=== PATIENT | female | born 1945 | race Caucasian/White ===

== ENCOUNTER 2016-05-24 11:26 | Inpatient (IN) | payer OTHER ==
[~2016-05-24] VITALS: Ht 167.6 cm; Wt 151.7 kg
[~2016-05-24 11:26] MED LIST: ALEN70TA2 PO; AMOX1TAB43 PO; ASPI-435 PO; BENZ100C84 PO; CALCTAB5 PO; CHOL100010 PO; CYAN10005 PO; FRS/40 PO; INSU0.01 SQ; INSU1INJ16 SQ; IPRA1AER2 INH; IPRASOL4 INH; LABE1TAB28 PO; LBT/200 PO; LOSA50TA6 PO; MAGN500T4 PO; OMEG10007 PO; OXGN; PARO1TAB29 PO; POTA10CA28 PO; PRLSR20 PO; SIMV40TA2 PO; SYMIN160 INH; SYN200 PO; SYN75 PO
[2016-05-24] MEDS ORDERED: ALBUT/IPRATROP 3MG/0.5MG NEB 3 ML VIAL INH STA (12:20)
--- NOTE | 2016-05-24 12:47 | DIAGNOSTIC IMAGING REPORT ---
CHEST ONE VIEW PORTABLE CLINICAL HISTORY: Shortness of breath COMPARISON STUDY: 03/25/2016 FINDINGS: The heart remains enlarged. There is persistent interstitial thickening, possibly secondary to mild chronic pulmonary vascular congestion. There is aortic tortuosity/ectasia. There is no lobar consolidation. There are no significant pleural effusions. Increased density at the lung bases felt related to technical factors due to overlying breast tissue. The examination is limited from a technical standpoint due to the patient's body habitus.[ IMPRESSION: Technically limited study. Persistent cardiomegaly. Persistent interstitial thickening. Aortic tortuosity/ectasia. No evidence of lobar consolidation Electronically signed by: Simon Walter M.D. 05/24/2016 12:46 PM
[2016-05-24 13:22] LABS: BASO % 0.1 %; BASO ABS # 0.01 K/uL (0-0.2); COMPLETE YES; EOS % 3.2 %; HEMATOCRIT 38.6 % (37-47); IG% 0.4 %; LYMPH % 20.4 %; LYMPH ABS # 1.47 K/uL (1.2-3.4); MEAN CELL VOLUME 84.3 fL (80-100); MEAN CORPUSCULAR HEMOGLOBIN 27.3 pg (25-34); MEAN CORPUSCULAR HGB CONC 32.4 g/dl (32-36); MEAN PLATELET VOLUME 10.6 fL (7.4-10.4); MONO % 8.6 %; NEUT % 67.3 %; PLATELET COUNT 266 K/uL (130-400); RED BLOOD COUNT 4.58 M/uL (4.2-5.4); WHITE BLOOD COUNT 7.22 K/uL (4.8-10.8)
[2016-05-24 13:23] LABS: URINE APPEARANCE CLEAR (CLEAR); URINE BILIRUBIN NEG (NEG); URINE COLOR YELLOW; URINE NITRITE NEG (NEG); URINE SPECIFIC GRAVITY 1.014 (1.000-1.030); UROBILINOGEN NEG (NEG); ZZUR CULT IF INDIC CLEAN CATCH NO
[2016-05-24] MEDS ORDERED: LORAZEPAM INJ 0.5 MG in SYRINGE 0.25 ML IV STA (13:24)
[2016-05-24 13:26] LABS: MANUAL MICROSCOPIC REQUIRED? NO; REVIEW REQ? NO
[2016-05-24] MEDS ORDERED: LORAZEPAM 2 MG/ML 1 ML VIAL ONE (13:28)
[2016-05-24 13:30] LABS: ALT/SGPT 24 U/L (12-78); BLOOD UREA NITROGEN 15 mg/dl (7-18); BUN/CREATININE RATIO 13.5 (10-20); CARBON DIOXIDE 30 mmol/L (21-32); CHLORIDE 107 mmol/L (98-107); GLUCOSE 156 mg/dl (70-99); MAGNESIUM 2.1 mg/dl (1.8-2.4); POTASSIUM 4.3 mmol/L (3.5-5.1); SODIUM 141 mmol/L (136-145)
[2016-05-24] MEDS ORDERED: OPTIRAY 320 IV PRN (13:30)
[2016-05-24] MEDS ORDERED: LABETALOL HCL 100 MG TAB PO ONE (13:30)
[2016-05-24] MEDS ORDERED: LORAZEPAM 2 MG/ML 1 ML VIAL IV ONE (13:30)
[2016-05-24 13:36] LABS: INR 1.1 (0.9-1.1); PARTIAL THROMBOPLASTIN RATIO 1.3; PROTHROMBIN TIME (PATIENT) 11.3 SECONDS (9.0-12.0)
[2016-05-24 13:39] LABS: ALB/GLOB RATIO 0.9 (0.9-2); ALKALINE PHOSPHATASE 84 U/L (45-117); AST/SGOT 14 U/L (15-37); C-REACTIVE PROTEIN 1.27 mg/dl (0-0.29)
[2016-05-24 14:30] LABS: VEN BLD GAS O2 SATURATION 64.9 %; VEN BLOOD GAS BASE EXCESS 1.3 mmol/L
--- NOTE | 2016-05-24 14:39 | DIAGNOSTIC IMAGING REPORT ---
CT ANGIOGRAPHY OF THE CHEST, ABDOMEN, AND PELVIS CLINICAL HISTORY: Difficulty breathing. Chest pain. COMPARISON STUDY: Chest radiograph May 24, [address] August 08, 2010. TECHNIQUE: Before and following the IV administration of 119 mL of Optiray-320, helical axial images of the chest, abdomen and pelvis were obtained. Maximal intensity projections and sagittal and coronal reformats were viewed on an independent 3D workstation. IV contrast was administered without complication. CT DOSE: 7238.91 mGy.cm FINDINGS: No intramural hematoma or aortic dissection is present. The caliber of the ascending aorta is at the upper limits of normal. There is moderate cardiomegaly and extensive mitral annular calcification. There is no pericardial effusion. There are trace bilateral pleural effusions. Note is made of multiple small segmental and subsegmental pulmonary emboli within the lungs. There are no central pulmonary emboli. Mild interstitial thickening suggests pulmonary edema. There are mild groundglass opacities. There is no consolidation. A few lung nodules are unchanged since earlier CT. These are likely benign. There is no consolidation to suggest pneumonia. Bony thorax is unremarkable. The caliber of the abdominal aorta is normal. There is mild to moderate plaque. There is no dissection. A few subcentimeter renal lesions are too small to characterize. The liver is moderately enlarged. There is anasarca. There is no evidence for a bowel obstruction. No pneumatosis, free air or portal venous gas is present. There is no lymphadenopathy. IMPRESSION: 1. Several small segmental and subsegmental bilateral pulmonary emboli. 2. No aortic dissection. 3. Findings suggestive of mild edema and trace bilateral pleural effusions. 4. Anasarca. 5. Hepatomegaly. Electronically signed by: Turner Pollock M.D. 05/24/2016 2:38 PM
[2016-05-24] MEDS ORDERED: SODIUM CHLORIDE 0.9% 250ML 250 ML IV STA (15:02)
[2016-05-24] MEDS ORDERED: SODIUM CHLORIDE 0.9% 1000ML 1,000 ML IV STA (15:02)
[2016-05-24] MEDS ORDERED: LORAZEPAM 2 MG/ML 1 ML VIAL IV PRN ×2 (15:30)
[2016-05-24] MEDS ORDERED: ACETAMINOPHEN IV 100 ML IV PRN (15:30)
[2016-05-24] MEDS ORDERED: MoRPHine SULFATE 2 MG/ML CARP IV PRN (15:30)
[2016-05-24] MEDS ORDERED: ACETAMINOPHEN 325 MG TAB PO PRN (15:30)
[2016-05-24] MEDS ORDERED: ONDANSETRON INJ 2 MG/ML 2 ML VIAL IV PRN (15:30)
[2016-05-24] MEDS ORDERED: HEPARIN SOD 5000 UNIT/0.5 ML CARP ONE (15:52)
[2016-05-24] MEDS ORDERED: HEPARIN 25000 UNIT/500 ML D5W ONE (15:52)
[2016-05-24] MEDS ORDERED: HEPARIN IV BOLUS 5,000 UNIT in SYRINGE 0 ML IV ONE (16:00)
[2016-05-24] MEDS ORDERED: DEXTROSE 50% 50 ML SYR IV PRN ×2 (16:15→18:45)
[2016-05-24] MEDS ORDERED: GLUCOSE 10 TABS/TUBE PO PRN ×2 (16:15→18:45)
[2016-05-24] MEDS ORDERED: GLUCAGON FOR INJ 1 MG VIAL SQ PRN ×2 (16:15→18:45)
[2016-05-24] MEDS ORDERED: GLUCOSE 40% GEL 15 GM TUBE PO PRN ×2 (16:15→18:45)
--- NOTE | 2016-05-24 16:26 | EMERGENCY ROOM VISIT NOTE ---
History First contact with patient: 12:03 Chief Complaint: RESPIRATORY PROBLEMS Stated Complaint: HARD TO BREATHE, CARPENTER FRONT/BACK WHEN OUT OF BRODY Nursing Triage Summary: Pt c/o increased SOB over past week. Denies CP but states she gets a warm feeling in her chest and back. History of COPD. Wears 2L NC at home and CPAP at night. Increased swelling in legs. History of Present Illness The patient is a 70 year old female who presents to the Emergency Department by private vehicle for evaluation of her worsening shortness of breath. The patient reports that she's had increasing shortness of breath on exertion for the past week. She has not had much of a cough. She typically does not use oxygen she is exerting herself in the form of cleaning or other heavy activity, but reports that today she needed to use her oxygen at rest. In addition, she reports that she is had to sleep near completely upright secondary to shortness of breath. She denies any pain in her chest, but does report a burning sensation to the abdomen and chest occasionally. She does report a history of COPD as well as CHF. She reports that this feels different than both of these. Her Lasix was decreased recently and she reports that her legs have not decreased in size is much as they usually do throughout the day. She reports a minimal cough. She is had no significant sputum production. She rates her current discomfort as a 0/10. She has used her nebulizers without relief. She denies any fevers, chills, headaches, dizziness, lightheadedness, hemoptysis, nausea, vomiting, or abdominal pain. Review of Systems A complete 10-point Review of Systems was discussed with the patient, with pertinent positives and negatives listed in the History of Present Illness. All remaining Review of Systems questions can be considered negative unless otherwise specified. Past Medical/Surgical History Medical Problems: (1) Bilateral pulmonary embolism (2) Cellulitis (3) Diabetes (4) Hypertension Family History Cancer Diabetes mellitus FH: heart disease FHx: lung disease Hypertension Kidney disease Kidney stones Social History Smoking Status: Never Smoker Alcohol Use: none Drug Use: none Marital Status: Housing Status: lives with family Occupation Status: retired Current/Historical Medications Scheduled Alendronate Sodium (Fosamax), 70 MG PO WK Aspirin (Aspirin 81), 81 MG PO HS Benzonatate (Tessalon Perles), 100 MG PO UD Budesonide/Formoterol Fumarate (Symbicort 160/4.5 Inhaler), 2 PUFFS INH BID Calcium (Caltrate), 600 MG PO DAILY Cholecalciferol (Vitamin D), 3,000 INTER.UNIT PO DAILY Cyanocobalamin (Vitamin B-12), 1,000 MCG PO DAILY Fish Oil ([place]-3), 2 CAP PO DAILY Furosemide (Lasix), 40 MG PO DAILY Insulin Isophane (Human) (Novolin N Relion), 105 UNITS SQ QPM Insulin Isophane (Human) (Novolin N Relion), 145 UNITS SQ QAM Insulin Regular (Human) (Novolin R Relion), 60 UNITS SQ QAM Insulin Regular (Human) (Novolin R Relion), 80 UNITS SQ QPM Ipratropium-Albuterol (Duoneb), 1 TREATMENT INH Q4H Ipratropium-Albuterol (Combivent Respimat), 1 PUFFS INH QID Labetalol (Normodyne), 800 MG PO QAM Labetalol (Normodyne), 600 MG PO QPM Labetalol Hcl (Normodyne), 600 MG PO HS Levothyroxine Sodium (Synthroid), 75 MG PO QAM Levothyroxine Sodium (Synthroid), 200 MG PO QAM Losartan Potassium (Cozaar), 1 TAB PO DAILY Magnesium Oxide (Mg Supplement (Magnesium), 250 MG PO DAILY Omeprazole (Prilosec), 20 MG PO QAM Oxygen (Oxygen), 3 LITERS NA HS Paroxetine (Paxil), 40 MG PO QPM Potassium Chloride (Micro-K Ext Rel), 20 MEQ PO DAILY Simvastatin (Zocor), 40 MG PO QPM Allergies Coded Allergies: Ibuprofen (Verified Allergy, Intermediate, HIVES, 05/24/16) Lisinopril (Verified Adverse Reaction, Mild, COUGH, 05/24/16) coughing Physical Exam Vital Signs Date Time Temp Pulse Resp B/P Pulse Ox O2 Delivery O2 Flow Rate FiO2 05/24/16 16:03 69 27 169/67 96 Nasal Cannula 3.0 05/24/16 14:06 66 22 182/82 95 Nasal Cannula 2.0 05/24/16 13:11 69 22 206/92 98 Nasal Cannula 2.0 05/24/16 13:10 97 Nasal Cannula 2.0 05/24/16 12:25 96 Room Air 05/24/16 12:14 69 05/24/16 11:53 Nasal Cannula 2.0 05/24/16 11:40 36.6 71 20 228/97 96 Nasal Cannula 2.0 Pain Rating (0-10): 0 Physical Exam VITAL SIGNS - Vital signs and nursing notes were reviewed. GENERAL - 70-year-old female appearing her stated age who is in mild distress and tachypneic. Communicates well with provider and answers questions appropriately. HEAD - NC/AT. EYES - PERRL with EOMI bilaterally. Sclera anicteric. Palpebral conjunctiva pink and moist with no injection noted. EARS - No deformities of external structures noted on gross examination bilaterally. No pain elicited with palpation of the tragus bilaterally. External auditory canals without discharge or otorrhea. Tympanic membranes pearly hernandez without retraction or bulging. NOSE - Midline and without cyanosis. No epistaxis or purulent drainage noted. Septum midline without deviation or septal hematoma noted. MOUTH/OROPHARYNX - Without perioral cyanosis. Buccal mucosa pink and moist and without leukoplakia. Tongue midline with equal elevation of palate bilaterally. No tonsillar hypertrophy, erythema, or exudates noted. NECK - Neck with FROM. Supple to palpation. LUNGS - Chest wall symmetric without accessory muscle use, intercostals retractions, or central cyanosis. Breath sounds distant throughout. Course at the bases bilaterally. CARDIAC - RRR with S1/S2. No murmur, rubs, or gallops appreciated. No reproducible tenderness to palpation appreciated over the anterior chest wall. ABDOMEN - Abdominal contour obese and without pulsations or visible masses. BS normoactive all four quadrants. No tenderness, palpable masses, hepatosplenomegaly, or ascites noted. EXTREMITIES - Moderate bilateral pretibial edema. +3/5 radial and dorsalis pedis pulses palpated throughout. +5/5 strength noted in UE/LE bilaterally. PSYCH - A&Ox3 and cooperates fully with examiner. Pt is very pleasant and interacts well with examiner. Medical Decision & Procedures ER Provider Diagnostic Interpretation: Radiological imaging and reports were reviewed by myself. Radiologist's Interpretation as follows: CHEST ONE VIEW PORTABLE CLINICAL HISTORY: Shortness of breath COMPARISON STUDY: 03/25/2016 FINDINGS: The heart remains enlarged. There is persistent interstitial thickening, possibly secondary to mild chronic pulmonary vascular congestion. There is aortic tortuosity/ectasia. There is no lobar consolidation. There are no significant pleural effusions. Increased density at the lung bases felt related to technical factors due to overlying breast tissue. The examination is limited from a technical standpoint due to the patient's body habitus.[ IMPRESSION: Technically limited study. Persistent cardiomegaly. Persistent interstitial thickening. Aortic tortuosity/ectasia. No evidence of lobar consolidation CT ANGIOGRAPHY OF THE CHEST, ABDOMEN, AND PELVIS CLINICAL HISTORY: Difficulty breathing. Chest pain. COMPARISON STUDY: Chest radiograph May 24, [address] August 08, 2010. TECHNIQUE: Before and following the IV administration of 119 mL of Optiray-320, helical axial images of the chest, abdomen and pelvis were obtained. Maximal intensity projections and sagittal and coronal reformats were viewed on an independent 3D workstation. IV contrast was administered without complication. CT DOSE: 7238.91 mGy.cm FINDINGS: No intramural hematoma or aortic dissection is present. The caliber of the ascending aorta is at the upper limits of normal. There is moderate cardiomegaly and extensive mitral annular calcification. There is no pericardial effusion. There are trace bilateral pleural effusions. Note is made of multiple small segmental and subsegmental pulmonary emboli within the lungs. There are no central pulmonary emboli. Mild interstitial thickening suggests pulmonary edema. There are mild groundglass opacities. There is no consolidation. A few lung nodules are unchanged since earlier CT. These are likely benign. There is no consolidation to suggest pneumonia. Bony thorax is unremarkable. The caliber of the abdominal aorta is normal. There is mild to moderate plaque. There is no dissection. A few subcentimeter renal lesions are too small to characterize. The liver is moderately enlarged. There is anasarca. There is no evidence for a bowel obstruction. No pneumatosis, free air or portal venous gas is present. There is no lymphadenopathy. IMPRESSION: 1. Several small segmental and subsegmental bilateral pulmonary emboli. 2. No aortic dissection. 3. Findings suggestive of mild edema and trace bilateral pleural effusions. 4. Anasarca. 5. Hepatomegaly. Laboratory Results 05/24/16 12:35 Red Blood Count 4.58, Mean Corpuscular Volume 84.3, Mean Corpuscular Hemoglobin 27.3, Mean Corpuscular Hemoglobin Concent 32.4, Mean Platelet Volume 10.6, Neutrophils (%) (Auto) 67.3, Lymphocytes (%) (Auto) 20.4, Monocytes (%) (Auto) 8.6, Eosinophils (%) (Auto) 3.2, Basophils (%) (Auto) 0.1, Neutrophils # (Auto) 4.86, Lymphocytes # (Auto) 1.47, Monocytes # (Auto) 0.62, Eosinophils # (Auto) 0.23, Basophils # (Auto) 0.01 05/24/16 12:35 Test 05/24/16 00:00 05/24/16 12:35 05/24/16 12:42 05/24/16 12:50 Urine Color YELLOW Urine Appearance CLEAR (CLEAR) Urine pH 8.0 (4.5-7.5) Urine Specific Porter 1.014 (1.000-1.030) Urine Protein NEG (NEG) Urine Glucose (UA) TRACE (NEG) Urine Ketones NEG (NEG) Urine Occult Blood NEG (NEG) Urine Nitrite NEG (NEG) Urine Bilirubin NEG (NEG) Urine Urobilinogen NEG (NEG) Urine Leukocyte Esterase NEG (NEG) White Blood Count 7.22 K/uL (4.8-10.8) Red Blood Count 4.58 M/uL (4.2-5.4) Hemoglobin 12.5 g/dL (12.0-16.0) Hematocrit 38.6 % (37-47) Mean Corpuscular Volume 84.3 fL (80-100) Mean Corpuscular Hemoglobin 27.3 pg (25-34) Mean Corpuscular Hemoglobin Concent 32.4 g/dl (32-36) Platelet Count 266 K/uL (130-400) Mean Platelet Volume 10.6 fL (7.4-10.4) Neutrophils (%) (Auto) 67.3 % Lymphocytes (%) (Auto) 20.4 % Monocytes (%) (Auto) 8.6 % Eosinophils (%) (Auto) 3.2 % Basophils (%) (Auto) 0.1 % Neutrophils # (Auto) 4.86 K/uL (1.4-6.5) Lymphocytes # (Auto) 1.47 K/uL (1.2-3.4) Monocytes # (Auto) 0.62 K/uL (0.11-0.59) Eosinophils # (Auto) 0.23 K/uL (0-0.5) Basophils # (Auto) 0.01 K/uL (0-0.2) RDW Standard Deviation 46.7 fL (36.4-46.3) RDW Coefficient of Variation 15.2 % (11.5-14.5) Immature Granulocyte % (Auto) 0.4 % Immature Granulocyte # (Auto) 0.03 K/uL (0.00-0.02) Erythrocyte Sedimentation Rate 30 mm/hr (0-21) Prothrombin Time 11.3 SECONDS (9.0-12.0) Prothromb Time International Ratio 1.1 (0.9-1.1) Activated Partial Thromboplast Time 34.3 SECONDS (21.0-31.0) Partial Thromboplastin Ratio 1.3 Anion Gap 4.0 mmol/L (3-11) Estimated GFR () 59.3 Estimated GFR (Non- 51.2 BUN/Creatinine Ratio 13.5 (10-20) Calcium Level 9.0 mg/dl (8.5-10.1) Magnesium Level 2.1 mg/dl (1.8-2.4) Total Bilirubin 0.6 mg/dl (0.2-1) Aspartate Amino Transf (AST/SGOT) 14 U/L (15-37) Alanine Aminotransferase (ALT/SGPT) 24 U/L (12-78) Alkaline Phosphatase 84 U/L (45-117) Total Creatine Kinase 60 U/L (26-192) Creatine Kinase MB 1.2 ng/ml (0.5-3.6) Creatine Kinase MB Ratio 2.0 (0-3.0) Troponin I < 0.015 ng/ml (0-0.045) C-Reactive Protein 1.27 mg/dl (0-0.29) Pro-B-Type Natriuretic Peptide 468 pg/ml (0-900) Total Protein 7.3 gm/dl (6.4-8.2) Albumin 3.5 gm/dl (3.4-5.0) Globulin 3.8 gm/dl (2.5-4.0) Albumin/Globulin Ratio 0.9 (0.9-2) Procalcitonin < 0.05 ng/mL (0-0.5) Thyroid Stimulating Hormone (TSH) 1.770 uIu/ml (0.300-4.500) Bedside Lactic Acid Venous 1.53 mmol/L (0.90-1.70) Influenza Type A Antigen Neg for Influ A (NEG) Influenza Type B Antigen Neg for Influ B (NEG) Test 05/24/16 14:17 Venous Blood pH 7.36 (7.36-7.41) Venous Blood Partial Pressure CO2 49 mmHg (38.0-50.0) Venous Blood Partial Pressure O2 34 mmHg Venous Blood HCO3 27 mmol/L Venous Blood Oxygen Saturation 64.9 % Venous Blood Base Excess 1.3 mmol/L Medications Administered Medications (Trade) Dose Ordered Sig/Marcelina Route Start Time Stop Time Status Last Admin Dose Admin Albuterol/ Ipratropium (Duoneb) 3 ml NOW STAT INH 05/24/16 12:20 05/24/16 12:23 DC 05/24/16 12:44 3 ML Labetalol HCl (Normodyne Tab) 600 mg NOW ONCE PO 05/24/16 13:30 05/24/16 13:31 DC 05/24/16 14:44 600 MG Lorazepam (Ativan Inj) 0.5 mg NOW ONCE IV 05/24/16 13:30 05/24/16 13:31 DC 05/24/16 13:30 0.5 MG Heparin Sodium/ Dextrose (Heparin 25,000 Unit/500ml D5W) 25,000 unit STK-MED ONCE .ROUTE 05/24/16 15:52 05/24/16 15:53 DC 05/24/16 16:00 25,000 UNIT Heparin Sodium (Porcine) (Heparin Sq 5000 Unit/0.5ml) 5,000 unit STK-MED ONCE .ROUTE 05/24/16 15:52 05/24/16 15:53 DC 05/24/16 15:56 5,000 UNIT Procedure Patient was placed on the hardboard grinder and monitored throughout the entire extent of their stay. In addition, the patient's pulse oximetry was monitored throughout the entire stay. Any abnormalities or aberrancies were addressed appropriately. ECG Indication: chest pain, SOB/dyspnea Rate (beats per minute): 73 Rhythm: normal sinus Findings: LBBB Change: no significant change (from 03/25/2016.) ED Course Patient was seen and evaluated by myself. Previous emergency department visit notes and hospitalizations were reviewed. Labs were drawn, saline lock in place. Patient was initially treated with 1 DuoNeb. EKG is unchanged priors. Initial chest x-ray is concerning for aortic ectasia and widening of the mediastinum. In the setting of the patient's location of pain and shortness of breath, didn't feel that it was judicious for CTA of the chest obtained. Laboratory evaluation was delayed secondary to laboratory issue. Patient was treated with her morning dose of labetalol which she did not take. She was premedicated with 0.5 mg IV Ativan prior to CTA. Creatinine was essentially cleared and found to be 1.1. CTA was immediately obtained. Patient has no acute leukocytosis. She is not anemic. There are no significant electrolyte abnormalities. Cardiac enzymes are negative. Influenza was negative. ABG was unremarkable. Case was reviewed with my attending physician who independently evaluated the patient and agrees with the diagnostic approach treatment plan. CTA results consistent with multiple by basilar pulmonary emboli. At this point , the case was reviewed with the [facility] who agrees to admit the patient for further evaluation and management. Patient admitted in stable condition. Medical Decision Patient was seen and evaluated by myself. On initial assessment, the patient is tachypneic and not well-appearing. She has no fever. She has no leukocytosis. She did not significantly respond to the DuoNeb which may be more concerned for greater chest catastrophe versus worsening heart failure. Her chest x-ray was concerning for aortic enlargement. In the setting of the patient's symptoms, my concern was for dissection. Because of this, the patient was sent emergently for CTA of the chest. She was premedicated with 0.5 mg Ativan to help her lay flat during the CTA. Thankfully, the CTA was unremarkable for dissection, however the patient was found to have multiple by basilar pulmonary emboli. Her blood pressure decreased nicely after her morning dose of medication. The patient will be admitted to the [facility] for continued management and anticoagulation. Patient admitted in stable condition. In the evaluation and treatment of this patient, the following differential diagnoses were considered: IN, ASC, Dysrhythmia, Angina, Mediastinitis, GERD, Esophagitis, PE, Pneumonia, Bronchitis, Costochondritis, Rib Fracture, Zoster. Impression Primary Impression: Bilateral pulmonary embolism Additional Impression: Shortness of breath Critical Care I have personally spent greater than 45 minutes of critical care time in the direct management of this patient. This includes bedside care, interpretation of diagnostic studies, and testing, discussion with consultants, patient, and family members, and other required patient management activities. This 45 minutes is in excess of all separately billable procedures. Departure Information Dispostion Admitted as an inpatient Condition FAIR Referrals RV. Jean Baptiste MD (PCP) Patient Instructions A Signature Page, [facility]
--- NOTE | 2016-05-24 17:40 | DIAGNOSTIC IMAGING REPORT ---
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 Edema. PEs COMPARISON STUDY: 03/25/2016 FINDINGS: There is normal compressibility, flow, and augmentation within the bilateral lower extremity deep venous systems. 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 No acute deep venous thrombosis Electronically signed by: Bharat Kitchen M.D. 05/24/2016 5:38 PM
[2016-05-24 18:23] VITALS: BP_SYST 189; PULSE 67; TEMP 36.6; O2SAT 94; BMI 55.2
[2016-05-24] MEDS ORDERED: LORAZEPAM INJ 0.5 MG in SYRINGE 0.75 ML IV PRN (19:15)
--- NOTE | 2016-05-24 19:23 | History and Physical ---
History & Physical Date & Time of Service: May 24, 2016 at 19:01 Chief Complaint: Bilateral Pulmonary Embolism Primary Care Physician: RV. Jean Baptiste MD History of Present Illness Source: patient, family The patient is a 70-year-old female who presents emergency department apparently vehicle for assessment worsening shortness of breath. She particular was having worsening dyspnea exertion over the past week. She has not had any leg pain or cramping. She's only had an intermittent cough as nonproductive. She sometimes uses oxygen at home when she is physically active , but she needed to use it at rest today as well. She denies chest pain, but she has had epigastric burning. She has a known history of COPD and CHF. She reports her Lasix was decreased recently but she has not noted any increase in lower extremity edema. Past Medical/Surgical History Medical Problems: (1) Diabetes Status: Chronic (2) Hypertension Status: Chronic Family History Cancer Diabetes mellitus FH: heart disease FHx: lung disease Hypertension Kidney disease Kidney stones Social History Smoking Status: Former Smoker Smokeless Tobacco Use: No Alcohol Use: none Drug Use: none Marital Status: Housing status: lives with family Occupational Status: retired Immunizations History of Influenza Vaccine: N/A History of Tetanus Vaccine?: Yes History of Pneumococcal: Yes History of Hepatitis B Vaccine: Unknown Multi-Drug Resistant Organisms History of MDRO: No Allergies Coded Allergies: Ibuprofen (Verified Allergy, Intermediate, HIVES, 05/24/16) Lisinopril (Verified Adverse Reaction, Mild, COUGH, 05/24/16) coughing Home Medications Scheduled Alendronate Sodium (Fosamax), 70 MG PO WK Aspirin (Aspirin 81), 81 MG PO HS Benzonatate (Tessalon Perles), 100 MG PO UD Budesonide/Formoterol Fumarate (Symbicort 160/4.5 Inhaler), 2 PUFFS INH BID Calcium (Caltrate), 600 MG PO DAILY Cholecalciferol (Vitamin D), 3,000 INTER.UNIT PO DAILY Cyanocobalamin (Vitamin B-12), 1,000 MCG PO DAILY Fish Oil (Ellis-3), 2 CAP PO DAILY Furosemide (Lasix), 40 MG PO DAILY Insulin Isophane (Human) (Novolin N Relion), 105 UNITS SQ QPM Insulin Isophane (Human) (Novolin N Relion), 145 UNITS SQ QAM Insulin Regular (Human) (Novolin R Relion), 60 UNITS SQ QAM Insulin Regular (Human) (Novolin R Relion), 80 UNITS SQ QPM Ipratropium-Albuterol (Duoneb), 1 TREATMENT INH Q4H Ipratropium-Albuterol (Combivent Respimat), 1 PUFFS INH QID Labetalol (Normodyne), 800 MG PO QAM Labetalol (Normodyne), 600 MG PO QPM Labetalol Hcl (Normodyne), 600 MG PO HS Levothyroxine Sodium (Synthroid), 75 MG PO QAM Levothyroxine Sodium (Synthroid), 200 MG PO QAM Losartan Potassium (Cozaar), 1 TAB PO DAILY Magnesium Oxide (Mg Supplement (Magnesium), 250 MG PO DAILY Omeprazole (Prilosec), 20 MG PO QAM Oxygen (Oxygen), 3 LITERS NA HS Paroxetine (Paxil), 40 MG PO QPM Potassium Chloride (Micro-K Ext Rel), 20 MEQ PO DAILY Simvastatin (Zocor), 40 MG PO QPM Review of Systems The patient denies palpitations, shortness of breath, cough, change in lower extremity swelling, vision change, hearing change, sore throat, fevers, chills, sweats, weight loss or gain, nausea, vomiting, abdominal pain, pelvic pain, blood in urine or stool, dysuria, urinary frequency or urgency, lightheadedness , dizziness, headache, memory loss, rash, abnormal bruising or bleeding, imbalance, focal weakness, numbness or tingling in arms or legs, generalized arthralgias or myalgias, night sweats, or allergy symptoms. The review of systems is otherwise negative other than for that already noted above, and at least 10 systems have been reviewed. Physical Exam Vital Signs Date Time Temp Pulse Resp B/P Pulse Ox O2 Delivery O2 Flow Rate FiO2 05/24/16 18:23 36.6 67 22 189/ 94 Nasal Cannula 3.0 05/24/16 16:03 69 27 169/67 96 Nasal Cannula 3.0 05/24/16 14:06 66 22 182/82 95 Nasal Cannula 2.0 05/24/16 13:11 69 22 206/92 98 Nasal Cannula 2.0 05/24/16 13:10 97 Nasal Cannula 2.0 05/24/16 12:25 96 Room Air 05/24/16 12:14 69 05/24/16 11:53 Nasal Cannula 2.0 05/24/16 11:40 36.6 71 20 228/97 96 Nasal Cannula 2.0 The patient is awake, well-developed and adequately nourished, alert and oriented 3, normocephalic and atraumatic, sitting upright in bed and in moderate respiratory distress after walking back from the bathroom. HEENT--PERRL, EOMI, mucous membranes moist, and oropharynx normal. Neck--supple, no JVD or bruits, thyroid normal, trachea midline, no adenopathy. Heart--normal S1 and S2, no extra beats, no murmurs, rubs or gallops. Lungs--crackles at the bases mcfp up bilaterally, moderate respiratory distress, mild accessory muscle use. Abdomen--normal bowel sounds and soft, nontender and nondistended, no hernias or masses, no organomegaly, and obese. Extremities--no cyanosis, clubbing. There is bilaterally 2+ pitting Edema. There are good distal pulses b/l. Dermatologic--normal skin turgor, normal color, warm and dry, no abnormal lymph nodes, no rash. Chronic venous stasis changes bilaterally. Neurologic--cranial nerves II through XII grossly intact, motor and sensory examination normal, vestibular function normal. Psychiatric--normal affect. Diagnostics Laboratory Results Results Past 24 Hours Test 05/24/16 00:00 05/24/16 12:35 05/24/16 12:42 05/24/16 12:50 Range/Units Urine Color YELLOW Urine Appearance CLEAR CLEAR Urine pH 8.0 4.5-7.5 Urine Specific [place] 1.014 1.000-1.030 Urine Protein NEG NEG Urine Glucose (UA) TRACE NEG Urine Ketones NEG NEG Urine Occult Blood NEG NEG Urine Nitrite NEG NEG Urine Bilirubin NEG NEG Urine Urobilinogen NEG NEG Urine Leukocyte Esterase NEG NEG White Blood Count 7.22 4.8-10.8 K/uL Red Blood Count 4.58 4.2-5.4 M/uL Hemoglobin 12.5 12.0-16.0 g/dL Hematocrit 38.6 37-47 % Mean Corpuscular Volume 84.3 80-100 fL Mean Corpuscular Hemoglobin 27.3 25-34 pg Mean Corpuscular Hemoglobin Concent 32.4 32-36 g/dl Platelet Count 266 130-400 K/uL Mean Platelet Volume 10.6 7.4-10.4 fL Neutrophils (%) (Auto) 67.3 % Lymphocytes (%) (Auto) 20.4 % Monocytes (%) (Auto) 8.6 % Eosinophils (%) (Auto) 3.2 % Basophils (%) (Auto) 0.1 % Neutrophils # (Auto) 4.86 1.4-6.5 K/uL Lymphocytes # (Auto) 1.47 1.2-3.4 K/uL Monocytes # (Auto) 0.62 0.11-0.59 K/uL Eosinophils # (Auto) 0.23 0-0.5 K/uL Basophils # (Auto) 0.01 0-0.2 K/uL RDW Standard Deviation 46.7 36.4-46.3 fL RDW Coefficient of Variation 15.2 11.5-14.5 % Immature Granulocyte % (Auto) 0.4 % Immature Granulocyte # (Auto) 0.03 0.00-0.02 K/uL Erythrocyte Sedimentation Rate 30 0-21 mm/hr Prothrombin Time 11.3 9.0-12.0 SECONDS Prothromb Time International Ratio 1.1 0.9-1.1 Activated Partial Thromboplast Time 34.3 21.0-31.0 SECONDS Partial Thromboplastin Ratio 1.3 Sodium Level 141 136-145 mmol/L Potassium Level 4.3 3.5-5.1 mmol/L Chloride Level 107 98-107 mmol/L Carbon Dioxide Level 30 21-32 mmol/L Anion Gap 4.0 3-11 mmol/L Blood Urea Nitrogen 15 7-18 mg/dl Creatinine 1.10 0.60-1.20 mg/dl Estimated GFR () 59.3 Estimated GFR (Non- 51.2 BUN/Creatinine Ratio 13.5 10-20 Random Glucose 156 70-99 mg/dl Calcium Level 9.0 8.5-10.1 mg/dl Magnesium Level 2.1 1.8-2.4 mg/dl Total Bilirubin 0.6 0.2-1 mg/dl Aspartate Amino Transf (AST/SGOT) 14 15-37 U/L Alanine Aminotransferase (ALT/SGPT) 24 12-78 U/L Alkaline Phosphatase 84 45-117 U/L Total Creatine Kinase 60 26-192 U/L Creatine Kinase MB 1.2 0.5-3.6 ng/ml Creatine Kinase MB Ratio 2.0 0-3.0 Troponin I < 0.015 0-0.045 ng/ml C-Reactive Protein 1.27 0-0.29 mg/dl Pro-B-Type Natriuretic Peptide 468 0-900 pg/ml Total Protein 7.3 6.4-8.2 gm/dl Albumin 3.5 3.4-5.0 gm/dl Globulin 3.8 2.5-4.0 gm/dl Albumin/Globulin Ratio 0.9 0.9-2 Procalcitonin < 0.05 0-0.5 ng/mL Thyroid Stimulating Hormone (TSH) 1.770 0.300-4.500 uIu/ml Bedside Lactic Acid Venous 1.53 0.90-1.70 mmol/L Influenza Type A Antigen Neg for Influ A NEG Influenza Type B Antigen Neg for Influ B NEG Test 05/24/16 14:17 Range/Units Venous Blood pH 7.36 7.36-7.41 Venous Blood Partial Pressure CO2 49 38.0-50.0 mmHg Venous Blood Partial Pressure O2 34 mmHg Venous Blood HCO3 27 mmol/L Venous Blood Oxygen Saturation 64.9 % Venous Blood Base Excess 1.3 mmol/L Microbiology Results 05/24/16 Blood Culture, Received Pending 05/24/16 Blood Culture, Received Pending Diagnostic Radiology Patient Name: JESSICA PENN Unit Number: [id number] Dictated: 05/24/161244 Transcribed: 05/24/161244 ARG Printed Date/Time: [~ rep prt dt]/[~ rep prt tm] [~ rep ct labl] - [~ rep ct ivnm] [facility] [place] [address] Dictated: 05/24/161244 Transcribed: 05/24/161244 ARG Printed Date/Time: [~ rep prt dt]/[~ rep prt tm] [~ rep ct labl] - [~ rep ct ivnm] CHEST ONE VIEW PORTABLE CLINICAL HISTORY: Shortness of breath COMPARISON STUDY: 03/25/2016 FINDINGS: The heart remains enlarged. There is persistent interstitial thickening, possibly secondary to mild chronic pulmonary vascular congestion. There is aortic tortuosity/ectasia. There is no lobar consolidation. There are no significant pleural effusions. Increased density at the lung bases felt related to technical factors due to overlying breast tissue. The examination is limited from a technical standpoint due to the patient's body habitus.[ IMPRESSION: Technically limited study. Persistent cardiomegaly. Persistent interstitial thickening. Aortic tortuosity/ectasia. No evidence of lobar consolidation Electronically signed by: Simon Walter M.D. 05/24/2016 12:46 PM The status of this report is Signed. Draft = Not yet reviewed or approved by Radiologist. Signed = Reviewed and approved by Radiologist. <AttendingPhy></AttendingPhy> <FamilyPhy>RV. Jean Baptiste MD</ FamilyPhy> <PrimaryPhy>RV. Jean Baptiste MD</PrimaryPhy> <UnitNumber> [id number]</UnitNumber> <VisitNumber>[id number]</VisitNumber> <PatientName> JESSICA PENN Tez</PatientName> <DateOfBirth>1945</DateOfBirth> <Location> C.EDB</Location> <ServiceDate>05/24/16</ServiceDate> <MNE>ESINDI</MNE> < OrderingPhy>Kade Aguilar PA-C</OrderingPhy> <OrderingPhyMNE>f rep ord dr cook</ OrderingPhyMNE> <DictatingPhyMNE>f rep dict dr cook</DictatingPhyMNE> <CCListMNE> f rep ct kindrae</CCListMNE> <AdmittingPhyMNE>f pt admit dr cook</AdmittingPhyMNE> < AttendingPhyMNE>f pt attend dr cook</AttendingPhyMNE> <ConsultingPhyMNE>f pt consult dr cook</ConsultingPhyMNE> <FamilyPhyMNE>f pt fam dr cook</FamilyPhyMNE> <OtherPhyMNE>f pt other dr cook</OtherPhyMNE> < PrimaryPhyMNE>f pt prim care dr cook</PrimaryPhyMNE> <ReferringPhyMNE>f pt referring dr cook</ReferringPhyMNE> Patient Name: JESSICA PENN Unit Number: [id number] Dictated: 05/24/161413 Transcribed: 05/24/161413 JA Printed Date/Time: [~ rep prt dt]/[~ rep prt tm] [~ rep ct labl] - [~ rep ct ivnm] [facility] [place] [address] Dictated: 05/24/161413 Transcribed: 05/24/161413 JA Printed Date/Time: [~ rep prt dt]/[~ rep prt tm] [~ rep ct labl] - [~ rep ct ivnm] [~ rep ct add3]] CT ANGIOGRAPHY OF THE CHEST, ABDOMEN, AND PELVIS CLINICAL HISTORY: Difficulty breathing. Chest pain. COMPARISON STUDY: Chest radiograph May 24, [address] August 08, 2010. TECHNIQUE: Before and following the IV administration of 119 mL of Optiray-320, helical axial images of the chest, abdomen and pelvis were obtained. Maximal intensity projections and sagittal and coronal reformats were viewed on an independent 3D workstation. IV contrast was administered without complication. CT DOSE: 7238.91 mGy.cm FINDINGS: No intramural hematoma or aortic dissection is present. The caliber of the ascending aorta is at the upper limits of normal. There is moderate cardiomegaly and extensive mitral annular calcification. There is no pericardial effusion. There are trace bilateral pleural effusions. Note is made of multiple small segmental and subsegmental pulmonary emboli within the lungs. There are no central pulmonary emboli. Mild interstitial thickening suggests pulmonary edema. There are mild groundglass opacities. There is no consolidation. A few lung nodules are unchanged since earlier CT. These are likely benign. There is no consolidation to suggest pneumonia. Bony thorax is unremarkable. The caliber of the abdominal aorta is normal. There is mild to moderate plaque. There is no dissection. A few subcentimeter renal lesions are too small to characterize. The liver is moderately enlarged. There is anasarca. There is no evidence for a bowel obstruction. No pneumatosis, free air or portal venous gas is present. There is no lymphadenopathy. IMPRESSION: 1. Several small segmental and subsegmental bilateral pulmonary emboli. 2. No aortic dissection. 3. Findings suggestive of mild edema and trace bilateral pleural effusions. 4. Anasarca. 5. Hepatomegaly. Electronically signed by: Turner Pollock M.D. 05/24/2016 2:38 PM The status of this report is Signed. Draft = Not yet reviewed or approved by Radiologist. Signed = Reviewed and approved by Radiologist. <AttendingPhy></AttendingPhy> <FamilyPhy>RV. Jean Baptiste MD</ FamilyPhy> <PrimaryPhy>RV. Jean Baptiste MD</PrimaryPhy> <UnitNumber> [id number]</UnitNumber> <VisitNumber>[id number]</VisitNumber> <PatientName> ISAMARJESSICA</PatientName> <DateOfBirth>1945</DateOfBirth> <Location> C.EDB</Location> <ServiceDate>05/24/16</ServiceDate> <MNE>ESINDI</MNE> < OrderingPhy>Kade Aguilar PA-C</OrderingPhy> <OrderingPhyMNE>f rep ord dr cook</ OrderingPhyMNE> <DictatingPhyMNE>f rep dict dr cook</DictatingPhyMNE> <CCListMNE> f rep ct mne</CCListMNE> <AdmittingPhyMNE>f pt admit dr cook</AdmittingPhyMNE> < AttendingPhyMNE>f pt attend dr cook</AttendingPhyMNE> <ConsultingPhyMNE>f pt consult dr cook</ConsultingPhyMNE> <FamilyPhyMNE>f pt fam dr cook</FamilyPhyMNE> <OtherPhyMNE>f pt other dr cook</OtherPhyMNE> < PrimaryPhyMNE>f pt prim care dr cook</PrimaryPhyMNE> <ReferringPhyMNE>f pt referring dr cook</ReferringPhyMNE> Patient Name: JESSICA PENN Unit Number: [id number] Dictated: 05/24/161736 Transcribed: 05/24/161736 MS Printed Date/Time: [~ rep prt dt]/[~ rep prt tm] [~ rep ct labl] - [~ rep ct ivnm] [facility] Radiology Department [place], [place] [id number] Dictated: 05/24/161736 Transcribed: 05/24/161736 MS Printed Date/Time: [~ rep prt dt]/[~ rep prt tm] [~ rep ct labl] - [~ rep ct ivnm] 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 Edema. PEs COMPARISON STUDY: 03/25/2016 FINDINGS: There is normal compressibility, flow, and augmentation within the bilateral lower extremity deep venous systems. 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 No acute deep venous thrombosis Electronically signed by: Bharat Kitchen M.D. 05/24/2016 5:38 PM The status of this report is Signed. Draft = Not yet reviewed or approved by Radiologist. Signed = Reviewed and approved by Radiologist. <AttendingPhy></AttendingPhy> <FamilyPhy>RV. Jaen Baptiste MD</ FamilyPhy> <PrimaryPhy>RV. Jean Baptiste MD</PrimaryPhy> <UnitNumber> [id number]</UnitNumber> <VisitNumber>[id number]</VisitNumber> <PatientName> ISRAEL PENNMike Reagan</PatientName> <DateOfBirth>1945</DateOfBirth> <Location> C.EDB</Location> <ServiceDate>05/24/16</ServiceDate> <MNE>ESINDI</MNE> < OrderingPhy>Kade Aguilar PA-C</OrderingPhy> <OrderingPhyMNE>f rep ord dr cook</ OrderingPhyMNE> <DictatingPhyMNE>f rep dict dr cook</DictatingPhyMNE> <CCListMNE> f rep ct kindrae</CCListMNE> <AdmittingPhyMNE>f pt admit dr cook</AdmittingPhyMNE> < AttendingPhyMNE>f pt attend dr cook</AttendingPhyMNE> <ConsultingPhyMNE>f pt consult dr cook</ConsultingPhyMNE> <FamilyPhyMNE>f pt fam dr cook</FamilyPhyMNE> <OtherPhyMNE>f pt other dr cook</OtherPhyMNE> < PrimaryPhyMNE>f pt prim care dr cook</PrimaryPhyMNE> <ReferringPhyMNE>f pt referring dr cook</ReferringPhyMNE> EKG EKG shows normal sinus rhythm with left bundle branch block, there are no acute ST-T changes. Impression Assessment and Plan Bilateral segmental and subsegmental pulmonary emboli, with normal venous Doppler bilaterally--patient admitted to telemetry and close oxygen monitoring. We'll place on heparin IV standard protocol with 5000 bolus. Have discussed with patient and family options for his warfarin, Xarelto or Eliquis. Place on Xopenex with Atrovent nebulizers to use every 6 hours while awake and every 2 hours when necessary. We will hold Symbicort, Combivent restful matte, and do nebs and loop above treatment. Hypertension continue aspirin 81 mg by mouth daily, furosemide 40 mg by mouth daily, labetalol 800 mg by mouth every morning, 600 mg by mouth every afternoon , and 600 mg by mouth at bedtime. Continue losartan 50 mg by mouth daily, potassium chloride 20 mg by mouth daily and mag oxide 250 mg by mouth daily. Diabetes mellitus--continue Humulin N 145 units subcutaneous every morning and 105 units subcutaneous every afternoon we'll hold her usual are of 60 units subcutaneous every morning and 80 units subcutaneous every afternoon. Will place on Accu-Cheks before meals and at bedtime with NovoLog coverage. GERD--change omeprazole 20 mg by mouth daily to pantoprazole 40 mg by mouth every morning. Hypothyroidism--continue levothyroxine sodium 275 g by mouth every morning. Depression--continue Peroxin 40 mg by mouth every afternoon. Hypercholesterolemia--continue simvastatin 40 mg by mouth every afternoon. Nutraceuticals--continue calcium, vitamin D, vitamin B-12, and fish oil as outpatient. Level of Care Telemetry Advanced Directives Existing Advance Directive: No Existing Living Will: No Existing Power of Automation Specialist: No Resuscitation Status FULL RESUSCITATION VTE Prophylaxis VTE Risk Assessment Done? Y/N: Yes Risk Level: High Given or contraindicated: SCD's Social Service Consult None Apply
[2016-05-24 19:43] VITALS: BP 130/71; PULSE 62; TEMP 36.7; O2SAT 96
[2016-05-24] MEDS: LABETALOL HCL 200 MG TAB PO SCH (20:31)
[2016-05-24] MEDS: PAROXETINE 20 MG TAB PO SCH (20:32)
[2016-05-24] MEDS: ASPIRIN 81 MG ECTAB PO SCH (20:32)
[2016-05-24] MEDS: SIMVASTATIN 40 MG TAB PO SCH (20:32)
[2016-05-24] MEDS: INSULIN HUMAN NPH SQ SCH (20:35)
[2016-05-24] MEDS ORDERED: LABETALOL HCL 200 MG TAB PO SCH (21:00)
[2016-05-24] MEDS ORDERED: LEVALBUTEROL/IPRATROPIUM NEB INH SCH (21:00)
[2016-05-24 21:14] VITALS: PULSE 71; O2SAT 96
[2016-05-24] MEDS: LEVALBUTEROL 1.25MG/0.5ML NEB INH SCH (21:14)
[2016-05-24] MEDS: IPRATROPIUM BROMIDE NEB SOLN 0.02% 2.5 ML VIAL INH SCH (21:14)
[2016-05-24 23:03] LABS: PARTIAL THROMBOPLASTIN RATIO 2.5
[2016-05-24 23:29] VITALS: BP 140/65; PULSE 69; TEMP 36.6; O2SAT 94
[2016-05-25] VITALS (13 sets, daily range): BP systolic 138–189; BP diastolic 68–81; PULSE 62–75; TEMP 36.5–36.9; O2SAT 94–97
[2016-05-25] MEDS: IPRATROPIUM BROMIDE NEB SOLN 0.02% 2.5 ML VIAL INH SCH ×4 (01:55→19:31)
[2016-05-25] MEDS: LEVALBUTEROL 1.25MG/0.5ML NEB INH SCH ×4 (01:56→19:31)
[2016-05-25] MEDS: LEVOTHYROXINE 75 MCG TAB PO SCH (06:05)
[2016-05-25] MEDS: LEVOTHYROXINE 200 MCG TAB PO SCH (06:05)
[2016-05-25] MEDS: HEPARIN 25,000 UNIT/500ML D5W 500 ML IV PRN ×2 (06:21→21:44)
[2016-05-25 07:06] LABS: BASO % 0.4 %; BASO ABS # 0.03 K/uL (0-0.2); COMPLETE YES; EOS % 4.2 %; HEMATOCRIT 36.6 % (37-47); IG% 0.3 %; LYMPH % 20.8 %; LYMPH ABS # 1.58 K/uL (1.2-3.4); MEAN CELL VOLUME 84.3 fL (80-100); MEAN CORPUSCULAR HGB CONC 30.9 g/dl (32-36); MEAN PLATELET VOLUME 10.8 fL (7.4-10.4); MONO % 10.1 %; NEUT % 64.2 %; PLATELET COUNT 252 K/uL (130-400); RED BLOOD COUNT 4.34 M/uL (4.2-5.4)
[2016-05-25 07:21] LABS: PARTIAL THROMBOPLASTIN RATIO 2.4; PROTHROMBIN TIME (PATIENT) 11.2 SECONDS (9.0-12.0)
[2016-05-25 07:44] LABS: BUN/CREATININE RATIO 11.4 (10-20); CALCIUM 8.7 mg/dl (8.5-10.1); CREATININE 1.1 mg/dl (0.60-1.20); POTASSIUM 3.7 mmol/L (3.5-5.1)
--- NOTE | 2016-05-25 08:11 | Clinical Documentation Query ---
LILLIAN Michel : CLINICAL DOCUMENTATION QUERIES QUERY 1 OF 2 Patient is a 70 year old female admitted secondary to bilateral pulmonary emboli. BMI noted to be 55.9 Kg/m*m. In order to capture this clinical observation, the associated diagnosis must be explicitly documented by the provider. Please consider documentation as suggested below as appropriate. In your clinical opinion is this patient being managed for: ( x ) Morbid obesity ( ) Other explanation of clinical findings (Please Explain) ( ) Unable to determine (Please Define) ( ) Need to Discuss ( ) Not Agree The medical record reflects the following clinical findings, treatment, and risk factors. Clinical Indicators: As above Treatment: AHA diet Risk Factors: DM, uncontrolled, physical inactivity QUERY 2 OF 2 Documentation includes history of CHF, not otherwise specified. Echocardiogram from 12/16 demonstrated normal LV systolic function but with diastolic dysfunction. Home medications include Lasix, Labetalol, and Cozaar. Risk factors include obesity, arterial hypertension, former smoking history, possible pulmonary hypertension. In your clinical opinion is this patient being managed for: (x ) Chronic diastolic (congestive) heart failure ( ) Other explanation of clinical findings (Please Explain) ( ) Unable to determine (Please Define) ( ) Need to Discuss ( ) Not Agree The medical record reflects the following clinical findings, treatment, and risk factors. Clinical Indicators: As above Treatment:Home medications include Lasix, Labetalol, and Cozaar Risk Factors:obesity, arterial hypertension, former smoking history, possible pulmonary hypertension Please clarify and document your clinical opinion in the progress notes and discharge summary. Terms such as "probable", "suspected", "likely", "questionable", "possible", or "still to be ruled out" are acceptable. IF IN AGREEMENT, YOU MUST DOCUMENT ABOVE DIAGNOSTIC STATEMENT IN DAILY PROGRESS NOTES AND DISCHARGE SUMMARY. This document is not part of the patient's record. Thank You, Mark Cruz, RN [phone]
[2016-05-25] MEDS: LOSARTAN POTASSIUM 50 MG TAB PO SCH (08:26)
[2016-05-25] MEDS: CYANOCOBALAMIN 500 MCG TAB (VIT B-12) PO SCH (08:27)
[2016-05-25] MEDS: BENZONATATE 100MG CAP PO SCH (08:27)
[2016-05-25] MEDS: LABETALOL HCL 200 MG TAB PO SCH ×2 (08:28→20:35)
[2016-05-25] MEDS: POTASSIUM CHLORIDE 10 MEQ TABCR PO SCH (08:28)
[2016-05-25] MEDS: FUROSEMIDE 40 MG TAB PO SCH (08:29)
[2016-05-25] MEDS: CHOLECALCIFEROL 1000 INTER.UNIT TAB PO SCH (08:30)
[2016-05-25] MEDS: PANTOprazole SOD 40 MG TAB PO SCH (08:30)
[2016-05-25] MEDS: INSULIN HUMAN NPH SQ SCH ×2 (08:34→20:40)
--- NOTE | 2016-05-25 14:20 | CONSULTATION REPORT ---
DATE OF CONSULTATION: 05/25/2016 HISTORY OF PRESENT ILLNESS: The patient is a 70-year-old female with significant past medical history who presented to [facility] on 05/24/2016 due to significant increase in her shortness of breath. The patient does have a history of COPD and CHF and is followed by Dr. Bonilla pulmonology for this and for her sleep apnea. The patient reports that she was in her normal state of health until about a week ago when she noticed that she was having increased shortness of breath. She states that the shortness of breath is dyspnea on exertion and persisted over the last week until it got to the point where she could not walk across her living room to her bathroom without becoming severely short of breath where she had to rest for several minutes to recover. She states that she had a little bit of chest pain with heavy breathing. No other chest pain. She states she did have a burning in her chest and the upper abdomen. She states that she had no cough. She states that she did have to use her oxygen which she uses at nighttime and sporadically during the day more often just to catch her breath. She did have to sleep basically sitting up. She had no sputum production with this. She states that she had been active prior to this. She states that she felt like she had bloating in her abdomen and actually still feels that. She thought maybe she is feeling it with her Lasix, but unfortunately the Lasix did not seem to take the bloating and swelling down. She also had swelling in her legs which did not respond to Lasix. She has not had any fever or chills associated with this. She states that she was hospitalized back in March for an exacerbation of her COPD, was treated during that hospitalization. Apparently she was diuresed because she states that she did lose a significant amount of weight. She states that over the past week or so she has had an increase in her weight. She is not having any trouble voiding. As stated earlier she presented to the ER because of the increased shortness of breath. In the ER she was worked up and had a CT angiography of the chest, abdomen and pelvis. This revealed several small segmental and subsegmental bilateral pulmonary emboli, also findings suggestive of mild edema and trace bilateral effusions, anasarca, and hepatomegaly. Workup was otherwise unremarkable. She did have an ABG done, which was unremarkable. She did have a C. reactive protein done, which was 1.27. Her total protein is 6.3, albumin is 3.1, total bilirubin 0.5, direct bilirubin 0.2, SGPT 15. No other abnormalities were noted. Because of the pulmonary emboli she was admitted and we were consulted for this. The patient reports that she has not had any illness that has required her to be more sedentary, recently she has not had any travel, she has just done travel locally in town here. She has never had a history of any type of blood clot before. PAST MEDICAL HISTORY: Includes COPD, CHF, diabetes mellitus, hypertension, osteoporosis, vitamin B12 deficiency, hypothyroidism, gastroesophageal reflux disease, depression, hypokalemia, hyperlipidemia, obstructive sleep apnea, bladder dysfunction. PAST SURGICAL HISTORY: Includes hysterectomy in 1994 and cholecystectomy in 2004. FAMILY HISTORY: Includes throat cancer, diabetes mellitus, coronary artery disease, COPD, hypertension, kidney disease, kidney stones. SOCIAL HISTORY: The patient is a lifelong nonsmoker, nondrinker. She is retired. Lives with her family. HOME MEDICATION: According to admission history and physical is Fosamax 70 mg weekly, aspirin 81 mg daily, Tessalon 100 mg as directed, Symbicort 160/4.5 two puffs twice daily, calcium 600 mg daily, vitamin D 3000 international units daily, vitamin B12 1000 mcg daily, fish oil 2 caps daily, furosemide 40 mg daily, Novolin N 105 units at bedtime, Novolin N 145 units in the morning, Novolin R 60 units in the morning, Novolin R 80 units at bedtime, DuoNeb q. 4 hours as needed, Combivent 1 puff q.i.d., Normodyne 800 mg in the a.m., Normodyne 600 mg in the p.m., Normodyne 600 mg at bedtime, levothyroxine 275 mcg daily, Cozaar 1 tablet daily, Mag-Ox 250 mg daily, Prilosec 20 mg daily, oxygen 3 liters via nasal cannula at bedtime, Paxil 40 mg nightly, potassium chloride 20 mEq daily, simvastatin 40 mg nightly. ALLERGIES: IBUPROFEN AND LISINOPRIL. REVIEW OF SYSTEMS: As above, otherwise unremarkable. PHYSICAL EXAMINATION: GENERAL: The patient is a 70-year-old morbidly obese white female sitting in chair at bedside, does not appear in any acute distress. Does not appear in any respiratory distress. She is alert and oriented x3. Mood is good. Affect is good. VITAL SIGNS: Temp 36.8, pulse 72, respirations 20, blood pressure 168/75, pulse ox 95% on 2 liters. HEENT: Normocephalic, atraumatic. Pupils equal, round and reactive to light and accommodation. Extraocular movements are intact. [place] moist gingival and buccal mucosa. NECK: Short neck. There is no JVD or thyromegaly noted. No mass, adenopathy or bruit. CHEST: The patient has diminished breath sounds bilaterally. The patient does have a few expiratory wheeze on exhalation no rales or rhonchi. CARDIOVASCULAR: Regular rate rhythm. No m, g, or rub. ABDOMEN: Soft, nontender. No guarding, rigidity noted. EXTREMITIES: The patient has +3 edema bilaterally. She has chronic stasis changes, no cyanosis or clubbing. NEUROLOGIC: Cranial nerves II through XII are grossly intact. No focal deficit. CURRENT LABORATORY DATA: Shows white count 7000, H\T\H 11.3 and 36.6, platelet count 252,000. ABG shows pH 7.3, pCO2 of 49, pO2 of 34, bicarb of 27, INR 1.0, PTT is 63, BUN 13, creatinine 1.1. Influenza is negative. Blood cultures pending. IMAGING: CT angiogram as discussed earlier showed bilateral small segmental and subsegmental PE, some hepatomegaly and anasarca. 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 No acute DVT noted. IMPRESSION: 1. This is a 70-year-old female with significant history for chronic obstructive pulmonary disease, congestive heart failure, sleep apnea. Unfortunately, she did develop bilateral segmental and subsegmental small pulmonary embolisms. Unfortunately, I am not sure of the etiology and there is no evidence of deep venous thrombosis on Venous Doppler. The patient has not had any recent travel. She has not had any recent confinement aside from a hospitalization at the end of March; therefore unsure of the etiology of the pulmonary embolism at this time. For now I would like the patient to have an echocardiogram and possibly do a bubble study to rule out PFO. Continue her heparin. Consider using coumadin considering the unknown etiology of the pulmonary embolism. 2. Obstructive sleep apnea, the patient needs to have a CPAP study. We will have it set up. 3. Chronic obstructive pulmonary disease. Continue current management. Chronic obstructive pulmonary disease seems to be fairly well controlled at present. At this point, will continue to follow the patient. Thank you for this consultation. MANNY
--- NOTE | 2016-05-25 14:47 | Hospitalist Progress Note ---
Hospitalist Progress Note Date of Service May 25, 2016. Subjective Pt evaluation today including: conversation w/ patient, physical exam, chart review, lab review, review of studies, conversation w/ audit consultant (Pulm), review of inpatient medication list PO Intake: asif DM diet Pt feelig less chest burning but still SOB although better. On heparin gtt. She has noticed L>R worsening leg edema over the last week Constitutional: No fever Respiratory: + shortness of breath Cardiovascular: + edema, No chest pain Abdomen: No nausea, No pain Skin: No rash All Other Systems: Reviewed and Negative Objective Vital Signs Date Time Temp Pulse Resp B/P Pulse Ox O2 Delivery O2 Flow Rate FiO2 05/25/16 12:00 95 Nasal Cannula 2.0 05/25/16 11:07 36.8 72 20 168/75 95 2.0 05/25/16 08:00 95 Nasal Cannula 2.0 05/25/16 07:44 36.6 63 20 155/81 95 2.0 05/25/16 07:28 64 18 95 Nasal Cannula 2.0 05/25/16 04:00 Nasal Cannula 05/25/16 03:37 36.7 69 22 152/70 95 Nasal Cannula 2.0 05/25/16 01:56 70 18 96 Nasal Cannula 2.0 05/24/16 23:59 Nasal Cannula 05/24/16 23:29 36.6 69 24 140/65 94 Nasal Cannula 2.0 05/24/16 21:14 71 18 96 Nasal Cannula 2.0 05/24/16 20:00 Nasal Cannula 05/24/16 19:43 36.7 62 20 130/71 96 Nasal Cannula 2.0 05/24/16 18:23 36.6 67 22 189/ 94 Nasal Cannula 3.0 05/24/16 16:03 69 27 169/67 96 Nasal Cannula 3.0 Physical Exam General Appearance: WD/WN, no apparent distress, + obese (morbidly) Eyes: normal inspection, sclerae normal ENT: pharynx normal Neck: trachea midline Respiratory/Chest: no respiratory distress, no accessory muscle use, + decreased breath sounds (throughout) Cardiovascular: regular rate, rhythm, no gallop, no murmur, + pertinent finding (2-3+ pitting edema bilat LEs L>R) Abdomen: normal bowel sounds, non tender, soft (and morbidly obese) Extremities: no calf tenderness, + swelling (as above) Neurologic/Psychiatric: alert, normal mood/affect, oriented x 3 Skin: warm/dry, + pertinent finding (legs with pink color, chronic venous stasis) Laboratory Results Last 24 Hours Test 05/24/16 20:02 05/24/16 22:28 05/25/16 06:34 05/25/16 06:47 Bedside Glucose 116 mg/dl 167 mg/dl Activated Partial Thromboplast Time 64.1 SECONDS 63.1 SECONDS Partial Thromboplastin Ratio 2.5 2.4 White Blood Count 7.60 K/uL Red Blood Count 4.34 M/uL Hemoglobin 11.3 g/dL Hematocrit 36.6 % Mean Corpuscular Volume 84.3 fL Mean Corpuscular Hemoglobin 26.0 pg Mean Corpuscular Hemoglobin Concent 30.9 g/dl Platelet Count 252 K/uL Mean Platelet Volume 10.8 fL Neutrophils (%) (Auto) 64.2 % Lymphocytes (%) (Auto) 20.8 % Monocytes (%) (Auto) 10.1 % Eosinophils (%) (Auto) 4.2 % Basophils (%) (Auto) 0.4 % Neutrophils # (Auto) 4.88 K/uL Lymphocytes # (Auto) 1.58 K/uL Monocytes # (Auto) 0.77 K/uL Eosinophils # (Auto) 0.32 K/uL Basophils # (Auto) 0.03 K/uL RDW Standard Deviation 47.5 fL RDW Coefficient of Variation 15.4 % Immature Granulocyte % (Auto) 0.3 % Immature Granulocyte # (Auto) 0.02 K/uL Prothrombin Time 11.2 SECONDS Prothromb Time International Ratio 1.0 Sodium Level 140 mmol/L Potassium Level 3.7 mmol/L Chloride Level 104 mmol/L Carbon Dioxide Level 27 mmol/L Anion Gap 9.0 mmol/L Blood Urea Nitrogen 13 mg/dl Creatinine 1.10 mg/dl Est Creatinine Clear Calc Drug Dose 74.9 ml/min Estimated GFR () 59.3 Estimated GFR (Non- 51.2 BUN/Creatinine Ratio 11.4 Random Glucose 153 mg/dl Calcium Level 8.7 mg/dl Magnesium Level 2.0 mg/dl Total Bilirubin 0.5 mg/dl Direct Bilirubin 0.2 mg/dl Aspartate Amino Transf (AST/SGOT) 15 U/L Alanine Aminotransferase (ALT/SGPT) 22 U/L Alkaline Phosphatase 70 U/L Total Protein 6.3 gm/dl Albumin 3.1 gm/dl Test 05/25/16 11:26 05/25/16 13:09 Bedside Glucose 266 mg/dl Assessment and Plan Pt is a 70 yo female with a h/o COPD, CHF, mitral valve regurg, diabetes mellitus type II, hypertension,osteoporosis, vitamin B12 deficiency, hypothyroidism, GERD, depression, hypokalemia, hyperlipidemia, obstructive sleep apnea, bladder dysfunction, here with bilateral PEs. She has several bilateral segmental and subsegmental PEs on CTA chest. There is indeed a chronic DVT in the left superficial femoral vein which is a deep vein despite its nomenclature. This is most likely from her morbid obesity and relative sedentary lifestyle due to severe OA of the knees. Bilateral segmental and subsegmental pulmonary emboli,acute on chronic hypoxemic respiratory failure, COPD- -patient admitted to telemetry and close oxygen monitoring. -continue heparin IV -Check V/Q scan for chronic thromboembolic disease as per Pulm -check ECHO for right heart strain -appreciate Pulm consult -will vargas out Xarelto or Eliquis with her outpatient pharmacy, if cost ok, will start after on heparin gtt for 48 hrs -continue Xopenex with Atrovent nebulizers to use every 6 hours while awake and every 2 hours when necessary -continue SYmbicort -supplemental O2 Hypertension, Chronic diastolic CHF, MR-accelerated HTN, now improved: - continue aspirin 81 -continue furosemide 40 mg daily and give extra 40m IV x 1 now for LE edema -continue labetalol 800 mg by mouth every morning, 600 mg by mouth every afternoon, and 600 mg by mouth at bedtime - Continue losartan 50 mg by mouth daily, potassium chloride 20 mg by mouth daily and mag oxide 250 mg by mouth daily. Diabetes mellitus type II--continue Humulin N 145 units subcutaneous every morning and 105 units subcutaneous every afternoon - Will place on Accu-Cheks before meals and at bedtime with NovoLog coverage. GERD--change omeprazole 20 mg by mouth daily to pantoprazole 40 mg by mouth every morning. Hypothyroidism--continue levothyroxine sodium 275 g by mouth every morning. Depression--continue Peroxin 40 mg by mouth every afternoon. Hypercholesterolemia--continue simvastatin 40 mg by mouth every afternoon. Nutraceuticals--continue calcium, vitamin D, vitamin B-12, and fish oil as outpatient. :
[2016-05-25] MEDS ORDERED: FUROSEMIDE INJ 40 MG in SYRINGE 0 ML IV ONE (15:00)
[2016-05-25] MEDS ORDERED: PERFLUTREN LIPID MICROSPHERE (DEFINITY) IV ONE (16:14)
--- NOTE | 2016-05-25 17:14 | Pulmonology Progress Note ---
Pulmonary Progress Note Date of Service May 25, 2016. Attending Dr. Dion Mcmahan Assessment & Plan Patient seen and evaluated patient. Cases been discussed with Dr. Lang as well as Jason Bright agree with current plan. Data Medications: Current Inpatient Medications Medications (Trade) Dose Ordered Sig/Marcelina Route Start Time Stop Time Status Last Admin Dose Admin Ioversol (Optiray 320) 111 ml UD PRN IV 05/24/16 13:30 05/28/16 13:29 Acetaminophen (Tylenol Tab) 650 mg Q4H PRN PO 05/24/16 15:30 06/23/16 15:29 05/25/16 06:07 650 MG Zolpidem Tartrate (Ambien Tab) 5 mg HSZ PRN PO 05/24/16 15:30 06/23/16 15:29 Aspirin (Ecotrin Tab) 81 mg HS PO 05/24/16 21:00 06/23/16 20:59 05/24/16 20:32 81 MG Benzonatate (Tessalon Perles Cap) 100 mg DAILY PO 05/25/16 09:00 06/24/16 08:59 05/25/16 08:27 100 MG Cholecalciferol (Vitamin D Tab) 3,000 inter.unit DAILY PO 05/25/16 09:00 06/24/16 08:59 05/25/16 08:30 3,000 INTER.UNIT Cyanocobalamin (Vitamin B-12 Tab) 1,000 mcg DAILY PO 05/25/16 09:00 06/24/16 08:59 05/25/16 08:27 1,000 MCG Furosemide (Lasix tab) 40 mg DAILY PO 05/25/16 09:00 06/24/16 08:59 05/25/16 08:29 40 MG Insulin Human NPH (novoLIN-N NPH) 105 units QPM SQ 05/24/16 21:00 06/23/16 20:59 05/24/16 20:35 90 UNITS Insulin Human NPH (novoLIN-N NPH) 145 units QAM SQ 05/25/16 09:00 06/24/16 08:59 05/25/16 08:34 125 UNITS Labetalol HCl (Normodyne Tab) 600 mg QPM PO 05/24/16 21:00 06/23/16 20:59 05/24/16 20:31 600 MG Labetalol HCl (Normodyne Tab) 800 mg QAM PO 05/25/16 09:00 06/24/16 08:59 05/25/16 08:28 800 MG Levothyroxine Sodium (Synthroid Tab) 75 mcg DAILYBB PO 05/25/16 06:00 06/24/16 05:59 05/25/16 06:05 75 MCG Levothyroxine Sodium (Synthroid Tab) 200 mcg DAILYBB PO 05/25/16 06:00 06/24/16 05:59 05/25/16 06:05 200 MCG Losartan Potassium (coZAAR TAB) 50 mg DAILY PO 05/25/16 09:00 06/24/16 08:59 05/25/16 08:26 50 MG Paroxetine HCl (pAXil TAB) 40 mg QPM PO 05/24/16 21:00 06/23/16 20:59 05/24/16 20:32 40 MG Potassium Chloride (Klor-Con M10) 20 meq DAILY PO 05/25/16 09:00 06/24/16 08:59 05/25/16 08:28 20 MEQ Simvastatin (Zocor Tab) 40 mg QPM PO 05/24/16 21:00 06/23/16 20:59 05/24/16 20:32 40 MG Pantoprazole Sodium (Protonix Tab) 40 mg QAM PO 05/25/16 09:00 06/24/16 08:59 05/25/16 08:30 40 MG Ondansetron HCl 4 mg 4 mg Q6H PRN IV 05/24/16 15:30 06/23/16 15:29 Acetaminophen (Ofirmev Iv) 100 ml @ 400 mls/hr Q8H PRN IV 05/24/16 15:30 06/23/16 15:29 Lorazepam (Ativan Inj) 0.5 mg Q4H PRN IV 05/24/16 15:30 06/23/16 15:29 Lorazepam (Ativan Inj) 1 mg Q4H PRN IV 05/24/16 15:30 06/23/16 15:29 Morphine Sulfate (MoRPHine SULFATE INJ) 2 mg Q2H PRN IV 05/24/16 15:30 06/07/16 15:29 Morphine Sulfate 4 mg 4 mg Q2H PRN IV 05/24/16 15:30 06/07/16 15:29 Heparin Sodium/ Dextrose (Heparin 25,000 Unit/500ml D5W) 500 ml @ 35 mls/hr [id number] PRN IV 05/24/16 16:00 06/23/16 15:59 05/25/16 06:21 35 MLS/HR Glucose (Glucose 40% Gel) 15-30 GRAMS 15 GRAMS... UD PRN PO 05/24/16 16:15 06/23/16 16:14 Glucose (Glucose Chew Tab) 4-8 Tablets 4 Tabl... UD PRN PO 05/24/16 16:15 06/23/16 16:14 Dextrose (Dextrose 50% 50ML Syringe) 25-50ML OF 50% DW IV FOR... UD PRN IV 05/24/16 16:15 06/23/16 16:14 Glucagon (Glucagon Inj) 1 mg UD PRN SQ 05/24/16 16:15 06/23/16 16:14 Glucose (Glucose 40% Gel) 15-30 GRAMS 15 GRAMS... UD PRN PO 05/24/16 18:45 06/23/16 18:44 Glucose (Glucose Chew Tab) 4-8 Tablets 4 Tabl... UD PRN PO 05/24/16 18:45 06/23/16 18:44 Dextrose (Dextrose 50% 50ML Syringe) 25-50ML OF 50% DW IV FOR... UD PRN IV 05/24/16 18:45 06/23/16 18:44 Glucagon (Glucagon Inj) 1 mg UD PRN SQ 05/24/16 18:45 06/23/16 18:44 Ipratropium [place] (Atrovent 0.02% 0.5MG/2.5ML Neb) 0.5 mg Q6R INH 05/24/16 21:00 06/23/16 20:59 05/25/16 14:55 0.5 MG Levalbuterol (Xopenex 1.25MG/ 0.5ML Neb) 1.25 mg Q6R INH 05/24/16 21:00 06/23/16 20:59 05/25/16 14:55 1.25 MG Ipratropium [place] (Atrovent 0.02% 0.5MG/2.5ML Neb) 0.5 mg Q2R PRN INH 05/24/16 19:15 06/23/16 19:14 Levalbuterol 1.25 mg 1.25 mg Q2R PRN INH 05/24/16 19:15 06/23/16 19:14 Lorazepam 0.5 mg/ Syringe 1 ml @ 1 mls/min Q4H PRN IV 05/24/16 19:15 06/23/16 19:14 Lorazepam/Syringe (Ativan Inj/ Syringe) 1 ml @ 1 mls/min Q4H PRN IV 05/24/16 19:15 06/23/16 19:14 Budesonide/ Formoterol Fumarate (Symbicort 160/ 4.5 Inh) 2 puffs BID INH 05/25/16 21:00 06/24/16 20:59 Hydralazine HCl (HydrALAZINE INJ) 10 mg Q8 PRN IV. 05/25/16 15:00 06/24/16 14:59 I & O: 24-Hour Column 05/25/16 08:00 Intake Total 1578 ml Output Total 200 ml Balance 1378 ml Vital Signs: Date Time Temp Pulse Resp B/P Pulse Ox O2 Delivery O2 Flow Rate FiO2 05/25/16 16:27 36.5 62 22 189/69 96 Nasal Cannula 2.0 05/25/16 16:00 Nasal Cannula 2.0 05/25/16 14:55 66 22 97 Nasal Cannula 2.0 05/25/16 12:00 95 Nasal Cannula 2.0 05/25/16 11:07 36.8 72 20 168/75 95 2.0 05/25/16 08:00 95 Nasal Cannula 2.0 05/25/16 07:44 36.6 63 20 155/81 95 2.0 05/25/16 07:28 64 18 95 Nasal Cannula 2.0 05/25/16 04:00 Nasal Cannula 05/25/16 03:37 36.7 69 22 152/70 95 Nasal Cannula 2.0 05/25/16 01:56 70 18 96 Nasal Cannula 2.0 05/24/16 23:59 Nasal Cannula 05/24/16 23:29 36.6 69 24 140/65 94 Nasal Cannula 2.0 05/24/16 21:14 71 18 96 Nasal Cannula 2.0 05/24/16 20:00 Nasal Cannula 05/24/16 19:43 36.7 62 20 130/71 96 Nasal Cannula 2.0 05/24/16 18:23 36.6 67 22 189/ 94 Nasal Cannula 3.0 Laboratory Results: Last 24 Hours Test 05/24/16 20:02 05/24/16 22:28 05/25/16 06:34 05/25/16 06:47 Bedside Glucose 116 mg/dl 167 mg/dl Activated Partial Thromboplast Time 64.1 SECONDS 63.1 SECONDS Partial Thromboplastin Ratio 2.5 2.4 White Blood Count 7.60 K/uL Red Blood Count 4.34 M/uL Hemoglobin 11.3 g/dL Hematocrit 36.6 % Mean Corpuscular Volume 84.3 fL Mean Corpuscular Hemoglobin 26.0 pg Mean Corpuscular Hemoglobin Concent 30.9 g/dl Platelet Count 252 K/uL Mean Platelet Volume 10.8 fL Neutrophils (%) (Auto) 64.2 % Lymphocytes (%) (Auto) 20.8 % Monocytes (%) (Auto) 10.1 % Eosinophils (%) (Auto) 4.2 % Basophils (%) (Auto) 0.4 % Neutrophils # (Auto) 4.88 K/uL Lymphocytes # (Auto) 1.58 K/uL Monocytes # (Auto) 0.77 K/uL Eosinophils # (Auto) 0.32 K/uL Basophils # (Auto) 0.03 K/uL RDW Standard Deviation 47.5 fL RDW Coefficient of Variation 15.4 % Immature Granulocyte % (Auto) 0.3 % Immature Granulocyte # (Auto) 0.02 K/uL Prothrombin Time 11.2 SECONDS Prothromb Time International Ratio 1.0 Sodium Level 140 mmol/L Potassium Level 3.7 mmol/L Chloride Level 104 mmol/L Carbon Dioxide Level 27 mmol/L Anion Gap 9.0 mmol/L Blood Urea Nitrogen 13 mg/dl Creatinine 1.10 mg/dl Est Creatinine Clear Calc Drug Dose 74.9 ml/min Estimated GFR () 59.3 Estimated GFR (Non- 51.2 BUN/Creatinine Ratio 11.4 Random Glucose 153 mg/dl Calcium Level 8.7 mg/dl Magnesium Level 2.0 mg/dl Total Bilirubin 0.5 mg/dl Direct Bilirubin 0.2 mg/dl Aspartate Amino Transf (AST/SGOT) 15 U/L Alanine Aminotransferase (ALT/SGPT) 22 U/L Alkaline Phosphatase 70 U/L Total Protein 6.3 gm/dl Albumin 3.1 gm/dl Test 05/25/16 11:26 05/25/16 13:09 05/25/16 16:22 Bedside Glucose 266 mg/dl 149 mg/dl
[2016-05-25] MEDS ORDERED: WARFARIN SOD 5 MG TAB PO ONE (17:22)
[2016-05-25] MEDS: ASPIRIN 81 MG ECTAB PO SCH (20:34)
[2016-05-25] MEDS: BUDESONIDE/FORMOTEROL FUMARATE 160/4.5 60 PUFFS/INHALER INH SCH (20:34)
[2016-05-25] MEDS: PAROXETINE 20 MG TAB PO SCH (20:36)
[2016-05-25] MEDS: SIMVASTATIN 40 MG TAB PO SCH (20:36)
[2016-05-26] VITALS (10 sets, daily range): BP systolic 131–169; BP diastolic 66–82; PULSE 63–79; TEMP 36.4–36.7; O2SAT 90–96
[2016-05-26] MEDS: LEVALBUTEROL 1.25MG/0.5ML NEB INH SCH ×4 (02:08→19:20)
[2016-05-26] MEDS: IPRATROPIUM BROMIDE NEB SOLN 0.02% 2.5 ML VIAL INH SCH ×4 (02:08→19:20)
[2016-05-26 05:59] LABS: BASO % 0.2 %; BASO ABS # 0.02 K/uL (0-0.2); COMPLETE YES; EOS % 4.4 %; HEMATOCRIT 36.7 % (37-47); IG% 0.2 %; LYMPH % 19.5 %; LYMPH ABS # 1.63 K/uL (1.2-3.4); MEAN CELL VOLUME 83.6 fL (80-100); MEAN CORPUSCULAR HEMOGLOBIN 26.9 pg (25-34); MEAN CORPUSCULAR HGB CONC 32.2 g/dl (32-36); MEAN PLATELET VOLUME 10.9 fL (7.4-10.4); MONO % 10.6 %; NEUT % 65.1 %; PLATELET COUNT 255 K/uL (130-400); RED BLOOD COUNT 4.39 M/uL (4.2-5.4); WHITE BLOOD COUNT 8.38 K/uL (4.8-10.8)
[2016-05-26] MEDS: LEVOTHYROXINE 200 MCG TAB PO SCH (06:04)
[2016-05-26] MEDS: LEVOTHYROXINE 75 MCG TAB PO SCH (06:05)
[2016-05-26 06:18] LABS: INR 1.1 (0.9-1.1); PARTIAL THROMBOPLASTIN RATIO 2.5; PROTHROMBIN TIME (PATIENT) 11.4 SECONDS (9.0-12.0)
[2016-05-26 06:31] LABS: BUN/CREATININE RATIO 14.7 (10-20); CALCIUM 9.1 mg/dl (8.5-10.1); CREATININE 1.1 mg/dl (0.60-1.20); POTASSIUM 3.5 mmol/L (3.5-5.1)
--- NOTE | 2016-05-26 07:54 | PULMONARY PROGRESS NOTE ---
DATE: 05/26/2016 SUBJECTIVE: The patient is comfortable this morning sitting out of bed in the chair. She does use her own CPAP for the sleep apnea. She states she is considerably improved when she was at the time of admission on the . She is tolerating the anticoagulants well. I reviewed her CT scan that reveals small subsegmental bilateral pulmonary emboli with changes consistent with some mild pulmonary edema and significant anasarca. She does not really have any significant risk factors, although she has been relatively sedentary at home. They were unable to do a VQ scan, stating she could not lay down. I do not see need to do the VQ scan. At this point, I think it would be a poor study because of her severe chronic obstructive lung disease, we already know she has pulmonary emboli. If this is concerned about pulmonary hypertension which she probably has echocardiogram could be done. Her vital signs are stable and she is afebrile. She slept fairly well last night. PHYSICAL EXAMINATION: VITAL SIGNS: She remains hypertensive with a blood pressure 155/82, oxygen saturation is 94% on CPAP with 3 liters of oxygen administration and she is afebrile. Weight is 155.7 kilograms. When she was here in March, her weight was 147 kilograms so she has gained 8 kilograms in that time. HEENT: Posterior pharynx shows some very small posterior pharyngeal opening with no evidence of thrush. There is no neck vein distention or HJR. No adenopathy is noted. HEART: Regular rate and rhythm. NECK: Distant, I do not detect any murmurs. LUNGS: Reveal decreased breath sounds with prolonged expiratory phase. No crackles or rales noted. ABDOMEN: Soft and obese, nontender. EXTREMITIES: She has +1 edema of the pretibial area. IMAGING DATA: Venous Doppler study showed no evidence of DVT. CT angiogram revealed evidence of pulmonary emboli bilaterally which were subsegmental with mild edema, trace bilateral pleural effusions, anasarca and hepatomegaly. LABORATORY DATA: White count is 8.38, H\T\H 11.8 and 37%, platelet count 255,000 with an unremarkable differential. Sed rate was 30. Blood gas revealed pH 7.36, & pO2 of 34 at the time of admission. PRP looks good with a normal CO2 of 30, BUN of 16, creatinine of 1.1, glucose has been in the 55-149 range. Liver function studies are normal. TSH is normal at 1.7. Procalcitonin was normal as well. The PTT is 63.9 seconds. Urinalysis revealed a pH of 8.0, but otherwise is really unremarkable. Influenza A and B, PCRs were negative. Blood cultures have been negative. The electrocardiogram done through the Emergency Room reveals normal sinus rhythm with a left bundle branch block, unchanged from 03/25/2016. IMPRESSION: 1. Bilateral pulmonary emboli. 2. Severe chronic obstructive lung disease. 3. Obstructive sleep apnea. 4. Diabetes mellitus. 5. Hypertension. 6. History of heart failure. RECOMMENDATIONS: 1. At this point, echocardiogram may be helpful. I think the VQ scan can be canceled. I spoke with the patient regarding that. She has difficulty with lying down. 2. Continue with anticoagulants and follow protime carefully. Once the INR is 2.0 or greater, heparin could be discontinued. 3. Increase activity. 4. Adjust the antihypertensives. She may need a bit more Lasix if she gets 40 mg a day now, & that may help to get rid of lot of the body fluid. She has gained 8 kilograms over the last several months, I believe most of that probably is fluid. Continue with the Xopenex and ipratropium bromide long-acting bronchodilator, Symbicort 160/4.5 two puffs b.i.d. Tessalon Perles could be discontinued. She should be continued on CPAP at night as well. According to the outpatient records from the 22 of February, at which time I evaluated the patient, she did have some heart failure which improved and she tolerated the CPAP very well. Overall, she is quite stable. [facility]
[2016-05-26] MEDS: FUROSEMIDE 40 MG TAB PO SCH (08:05)
[2016-05-26] MEDS: BUDESONIDE/FORMOTEROL FUMARATE 160/4.5 60 PUFFS/INHALER INH SCH ×2 (08:05→20:41)
[2016-05-26] MEDS: BENZONATATE 100MG CAP PO SCH (08:05)
[2016-05-26] MEDS: PANTOprazole SOD 40 MG TAB PO SCH (08:08)
[2016-05-26] MEDS: CYANOCOBALAMIN 500 MCG TAB (VIT B-12) PO SCH (08:08)
[2016-05-26] MEDS: POTASSIUM CHLORIDE 10 MEQ TABCR PO SCH (08:08)
[2016-05-26] MEDS: LOSARTAN POTASSIUM 50 MG TAB PO SCH (08:09)
[2016-05-26] MEDS: CHOLECALCIFEROL 1000 INTER.UNIT TAB PO SCH (08:09)
[2016-05-26] MEDS: LABETALOL HCL 200 MG TAB PO SCH ×2 (08:09→20:42)
[2016-05-26] MEDS: INSULIN HUMAN NPH SQ SCH ×2 (08:32→20:49)
--- NOTE | 2016-05-26 09:36 | ECHOCARDIOGRAM REPORT ---
*NOTICE TO RECEIVING CONSTITUTION PARTY AGENCY This information is strictly Confidential and protected under [place] law. [place] law prohibits you from making any further disclosure of this information unless further disclosure is expressly permitted by the written consent of the person to whom it pertains or is authorized by law. A general authorization for the release of medical or other information is not sufficient for this purpose. Hospital accepts no responsibility if the information is made available to any other person, INCLUDING THE PATIENT. Interpretation Summary * Name: JESSICA PENN Study Date: 05/25/2016 03:57 PM BP: 168/75 mmHg * Patient Location: C.2T\S\S232\S\1 HR: 66 * : 1945 (M/d/y) Gender: Female Height: 65 in * Age: 70 yrs Ethnicity: [place] Weight: 346 lb * Ordering Physician: Jason Bright * Referring Physician: Self, Referred * Performed By: Cris Hernandez RDCS * * Reason For Study: PULMONARY EMBOLISM * BSA: 2.5 m2 * History: PULMONARY EMBOLISM * -- Conclusions -- * Extremely limited study as the apatient is sitting up for study. * Left ventricular systolic function is normal. * Ejection Fraction = 50-55%. * The left ventricular wall motion is normal. * The RV is poorly visualized. In the Limitted views the RVOT portion does not seem dilated. * Additionally the interventricular septum does NOT appeared flattened. * Can not assess RV function. * There is severe mitral annular calcification. * Moderate mitral stenosis secondary to MAC (MG 5 mm/hg) * Diastolic dysfunction, Grade II (pseudonormalization pattern). * Elevated E to e' ratio. * There is trace tricuspid regurgitation. Could not assess PA pressures. Procedure Details * A contrast injection of Definity was performed to improve assessment of LV function. * Contrast was injected into an intravenous site in the left arm. * One vial of Definity ultrasound contrast was diluted in normal saline to a total volume of 10 ml. A total of '3' ml of solution was administered during imaging. * Lot # [id number] of Definity utilized for procedure. * Expiration date MAY 19. * The attending nurse who injected the contrast agent was GIL GONZALEZ. Left Ventricle * The left ventricle is grossly normal size. * There is normal left ventricular wall thickness. * Left ventricular systolic function is normal. * Ejection Fraction = 50-55%. * The left ventricular wall motion is normal. Right Ventricle * The RV is poorly visualized. In the Limitted views the RVOT portion does not seem dilated. Additionally the interventricular septum does NOT appeared flattened. Can not assess RV function. Atria * The left atrium is mildly dilated. Mitral Valve * There is severe mitral annular calcification. * Moderate mitral stenosis secondary to MAC (MG 5 mm/hg) Tricuspid Valve * The tricuspid valve is not well visualized, but is grossly normal. * There is trace tricuspid regurgitation. Aortic Valve * The aortic valve is not well visualized. Pulmonic Valve * The pulmonic valve is not well visualized. Pericardium/Pleural * There is no pericardial effusion. Left Ventricular Diastolic Function * Diastolic dysfunction, Grade II (pseudonormalization pattern). * Elevated E to e' ratio. MMode 2D Measurements and Calculations LVAd ap4 36.8 cm\S\2 LVLd ap4 8.6 cm EDV(MOD-sp4) 128.8 ml EDV(sp4-el) 133.1 ml LVAs ap4 24.5 cm\S\2 LVLs ap4 8.1 cm ESV(MOD-sp4) 62.2 ml ESV(sp4-el) 62.9 ml EF(MOD-sp4) 51.7 % EF(sp4-el) 52.7 % LVAd ap2 34.7 cm\S\2 LVLd ap2 8.6 cm EDV(MOD-sp2) 114.7 ml EDV(sp2-el) 118.2 ml LVAs ap2 21.4 cm\S\2 LVLs ap2 7.4 cm ESV(MOD-sp2) 51.0 ml ESV(sp2-el) 52.9 ml EF(MOD-sp2) 55.5 % EF(sp2-el) 55.2 % LVLd %diff -0.03 % EDV(MOD-bp) 121.7 ml LVLs %diff -9.90 % ESV(MOD-bp) 58.4 ml EF(MOD-bp) 52.0 % SV(MOD-sp4) 66.6 ml SI(MOD-sp4) 26.7 ml/m\S\2 SV(MOD-sp2) 63.6 ml SI(MOD-sp2) 25.5 ml/m\S\2 SV(MOD-bp) 63.2 ml SI(MOD-bp) 25.3 ml/m\S\2 SV(sp4-el) 70.2 ml SI(sp4-el) 28.1 ml/m\S\2 SV(sp2-el) 65.2 ml SI(sp2-el) 26.1 ml/m\S\2 Doppler Measurements and Calculations MV E max duong 154.2 cm/sec MV A max duong 137.0 cm/sec MV E/A 1.1 MV V2 max 189.4 cm/sec MV max PG 14.3 mmHg MV V2 mean 117.6 cm/sec MV mean PG 6.2 mmHg MV V2 VTI 68.7 cm MV P1/2t max duong 193.7 cm/sec MV P1/2t 113.4 msec MVA(P1/2t) 1.9 cm\S\2 MV dec slope 500.2 cm/sec\S\2 MV dec time 0.40 sec Ao V2 max 181.0 cm/sec Ao max PG 13.1 mmHg Ao max PG (full) 11.4 mmHg LV V1 max PG 1.7 mmHg LV V1 max 66.0 cm/sec
[2016-05-26] MEDS ORDERED: FUROSEMIDE INJ 40 MG in SYRINGE 0 ML IV SCH (14:00)
[2016-05-26] MEDS ORDERED: WARFARIN SOD 5 MG TAB PO SCH (16:00)
[2016-05-26] MEDS: INSULIN ASPART 100 UNITS/ML 3 ML PEN SC SCH ×2 (16:15→20:50)
[2016-05-26] MEDS: WARFARIN SOD 7.5 MG TAB PO SCH (17:32)
[2016-05-26] MEDS: ASPIRIN 81 MG ECTAB PO SCH (20:41)
[2016-05-26] MEDS: SIMVASTATIN 40 MG TAB PO SCH (20:42)
[2016-05-26] MEDS: PAROXETINE 20 MG TAB PO SCH (20:42)
[2016-05-27] VITALS (10 sets, daily range): BP systolic 129–163; BP diastolic 71–76; PULSE 62–70; TEMP 36.5–36.9; O2SAT 90–97
[2016-05-27] MEDS: LEVALBUTEROL 1.25MG/0.5ML NEB INH SCH ×4 (01:49→19:12)
[2016-05-27] MEDS: IPRATROPIUM BROMIDE NEB SOLN 0.02% 2.5 ML VIAL INH SCH ×4 (01:49→19:12)
[2016-05-27] MEDS: HEPARIN 25,000 UNIT/500ML D5W 500 ML IV PRN ×3 (03:24→21:11)
[2016-05-27 05:56] LABS: BASO % 0.3 %; BASO ABS # 0.02 K/uL (0-0.2); COMPLETE YES; EOS % 4.9 %; HEMATOCRIT 36.1 % (37-47); LYMPH % 22.5 %; LYMPH ABS # 1.57 K/uL (1.2-3.4); MEAN CELL VOLUME 84.7 fL (80-100); MEAN CORPUSCULAR HGB CONC 31.9 g/dl (32-36); MEAN PLATELET VOLUME 10.8 fL (7.4-10.4); MONO % 9.7 %; NEUT % 62.6 %; PLATELET COUNT 251 K/uL (130-400); RED BLOOD COUNT 4.26 M/uL (4.2-5.4); WHITE BLOOD COUNT 6.99 K/uL (4.8-10.8)
[2016-05-27 06:15] LABS: INR 1.1 (0.9-1.1); PROTHROMBIN TIME (PATIENT) 12.1 SECONDS (9.0-12.0)
[2016-05-27 06:22] LABS: BUN/CREATININE RATIO 17.3 (10-20); CALCIUM 8.9 mg/dl (8.5-10.1); CREATININE 1.1 mg/dl (0.60-1.20); POTASSIUM 3.8 mmol/L (3.5-5.1)
[2016-05-27] MEDS: LEVOTHYROXINE 75 MCG TAB PO SCH (06:24)
[2016-05-27] MEDS: LEVOTHYROXINE 200 MCG TAB PO SCH (06:24)
[2016-05-27] MEDS: INSULIN ASPART 100 UNITS/ML 3 ML PEN SC SCH ×4 (07:00→21:18)
[2016-05-27] MEDS: LOSARTAN POTASSIUM 50 MG TAB PO SCH (08:02)
[2016-05-27] MEDS: BUDESONIDE/FORMOTEROL FUMARATE 160/4.5 60 PUFFS/INHALER INH SCH ×2 (08:02→20:28)
[2016-05-27] MEDS: POTASSIUM CHLORIDE 10 MEQ TABCR PO SCH (08:03)
[2016-05-27] MEDS: FUROSEMIDE 40 MG TAB PO SCH (08:04)
[2016-05-27] MEDS: PANTOprazole SOD 40 MG TAB PO SCH (08:04)
[2016-05-27] MEDS: LABETALOL HCL 200 MG TAB PO SCH ×2 (08:04→20:35)
[2016-05-27] MEDS: CHOLECALCIFEROL 1000 INTER.UNIT TAB PO SCH (08:05)
[2016-05-27] MEDS: CYANOCOBALAMIN 500 MCG TAB (VIT B-12) PO SCH (08:05)
[2016-05-27] MEDS: INSULIN HUMAN NPH SQ SCH ×2 (08:09→21:19)
--- NOTE | 2016-05-27 13:03 | Progress Note ---
Subjective Date of Service: May 27, 2016. Subjective Pt evaluation today including: conversation w/ patient, physical exam, lab review, review of studies, conversation w/ talent consultant, review of inpatient medication list Pain: no chest pain PO Intake: adequate Voiding: no voiding problems patient reports her breathing is better, no chest pain, left leg swelling improved no issues eating, urinating, moving bowels Problem List Medical Problems: (1) Bilateral lower leg cellulitis Status: Acute (2) Dyspnea Status: Acute (3) Fluid overload Status: Acute (4) Left leg cellulitis Status: Acute (5) Lump in throat Status: Acute (6) Morbid obesity Status: Acute (7) Shortness of breath Status: Acute (8) Shortness of breath Status: Acute Review of Systems Respiratory: + dyspnea on exertion Cardiac: + edema (left leg > right) Musculoskeletal: + joint pain (knees bilaterally, chronic) All Other Systems: Reviewed and Negative Medications Current Inpatient Medications Medications (Trade) Dose Ordered Sig/Marcelina Route Start Time Stop Time Status Last Admin Dose Admin Ioversol (Optiray 320) 111 ml UD PRN IV 05/24/16 13:30 05/28/16 13:29 Acetaminophen (Tylenol Tab) 650 mg Q4H PRN PO 05/24/16 15:30 06/23/16 15:29 05/25/16 06:07 650 MG Zolpidem Tartrate (Ambien Tab) 5 mg HSZ PRN PO 05/24/16 15:30 06/23/16 15:29 Aspirin (Ecotrin Tab) 81 mg HS PO 05/24/16 21:00 06/23/16 20:59 05/26/16 20:41 81 MG Cholecalciferol (Vitamin D Tab) 3,000 inter.unit DAILY PO 05/25/16 09:00 06/24/16 08:59 05/27/16 08:05 3,000 INTER.UNIT Cyanocobalamin (Vitamin B-12 Tab) 1,000 mcg DAILY PO 05/25/16 09:00 06/24/16 08:59 05/27/16 08:05 1,000 MCG Furosemide (Lasix tab) 40 mg DAILY PO 05/25/16 09:00 06/24/16 08:59 05/27/16 08:04 40 MG Labetalol HCl (Normodyne Tab) 600 mg QPM PO 05/24/16 21:00 06/23/16 20:59 05/26/16 20:42 600 MG Labetalol HCl (Normodyne Tab) 800 mg QAM PO 05/25/16 09:00 06/24/16 08:59 05/27/16 08:04 800 MG Levothyroxine Sodium (Synthroid Tab) 75 mcg DAILYBB PO 05/25/16 06:00 06/24/16 05:59 05/27/16 06:24 75 MCG Levothyroxine Sodium (Synthroid Tab) 200 mcg DAILYBB PO 05/25/16 06:00 06/24/16 05:59 05/27/16 06:24 200 MCG Losartan Potassium (coZAAR TAB) 50 mg DAILY PO 05/25/16 09:00 06/24/16 08:59 05/27/16 08:02 50 MG Paroxetine HCl (pAXil TAB) 40 mg QPM PO 05/24/16 21:00 06/23/16 20:59 05/26/16 20:42 40 MG Potassium Chloride (Klor-Con M10) 20 meq DAILY PO 05/25/16 09:00 06/24/16 08:59 05/27/16 08:03 20 MEQ Simvastatin (Zocor Tab) 40 mg QPM PO 05/24/16 21:00 06/23/16 20:59 05/26/16 20:42 40 MG Pantoprazole Sodium (Protonix Tab) 40 mg QAM PO 05/25/16 09:00 06/24/16 08:59 05/27/16 08:04 40 MG Ondansetron HCl 4 mg 4 mg Q6H PRN IV 05/24/16 15:30 06/23/16 15:29 Acetaminophen (Ofirmev Iv) 100 ml @ 400 mls/hr Q8H PRN IV 05/24/16 15:30 06/23/16 15:29 Lorazepam (Ativan Inj) 0.5 mg Q4H PRN IV 05/24/16 15:30 06/23/16 15:29 Lorazepam (Ativan Inj) 1 mg Q4H PRN IV 05/24/16 15:30 06/23/16 15:29 Morphine Sulfate (MoRPHine SULFATE INJ) 2 mg Q2H PRN IV 05/24/16 15:30 06/07/16 15:29 Morphine Sulfate 4 mg 4 mg Q2H PRN IV 05/24/16 15:30 06/07/16 15:29 Heparin Sodium/ Dextrose (Heparin 25,000 Unit/500ml D5W) 500 ml @ 35 mls/hr [id number] PRN IV 05/24/16 16:00 06/23/16 15:59 05/27/16 06:22 31 MLS/HR Glucose (Glucose 40% Gel) 15-30 GRAMS 15 GRAMS... UD PRN PO 05/24/16 16:15 06/23/16 16:14 Glucose (Glucose Chew Tab) 4-8 Tablets 4 Tabl... UD PRN PO 05/24/16 16:15 06/23/16 16:14 Dextrose (Dextrose 50% 50ML Syringe) 25-50ML OF 50% DW IV FOR... UD PRN IV 05/24/16 16:15 06/23/16 16:14 Glucagon (Glucagon Inj) 1 mg UD PRN SQ 05/24/16 16:15 06/23/16 16:14 Ipratropium [place] (Atrovent 0.02% 0.5MG/2.5ML Neb) 0.5 mg Q6R INH 05/24/16 21:00 06/23/16 20:59 05/27/16 07:11 0.5 MG Levalbuterol (Xopenex 1.25MG/ 0.5ML Neb) 1.25 mg Q6R INH 05/24/16 21:00 06/23/16 20:59 05/27/16 07:11 1.25 MG Ipratropium [place] (Atrovent 0.02% 0.5MG/2.5ML Neb) 0.5 mg Q2R PRN INH 05/24/16 19:15 06/23/16 19:14 Levalbuterol 1.25 mg 1.25 mg Q2R PRN INH 05/24/16 19:15 06/23/16 19:14 Lorazepam 0.5 mg/ Syringe 1 ml @ 1 mls/min Q4H PRN IV 05/24/16 19:15 06/23/16 19:14 Lorazepam/Syringe (Ativan Inj/ Syringe) 1 ml @ 1 mls/min Q4H PRN IV 05/24/16 19:15 06/23/16 19:14 Budesonide/ Formoterol Fumarate (Symbicort 160/ 4.5 Inh) 2 puffs BID INH 05/25/16 21:00 06/24/16 20:59 05/27/16 08:02 2 PUFFS Hydralazine HCl (HydrALAZINE INJ) 10 mg Q8 PRN IV. 05/25/16 15:00 06/24/16 14:59 Insulin Human NPH (novoLIN-N NPH) 75 units QPM SQ 05/26/16 21:00 06/25/16 20:59 05/26/16 20:49 75 UNITS Insulin Human NPH (novoLIN-N NPH) 125 units QAM SQ 05/27/16 09:00 06/26/16 08:59 05/27/16 08:09 125 UNITS Insulin Aspart (novoLOG ASPART) SLIDING SCALE G... ACHS SC 05/26/16 16:15 06/25/16 16:14 Warfarin Sodium (Coumadin Tab) 7.5 mg DAILY@16 PO 05/26/16 16:00 06/25/16 15:59 05/26/16 17:32 7.5 MG Objective Vital Signs Date Time Temp Pulse Resp B/P Pulse Ox O2 Delivery O2 Flow Rate FiO2 05/27/16 08:06 36.5 62 20 153/76 95 Nasal Cannula 2.0 05/27/16 08:00 Nasal Cannula 2.0 05/27/16 07:11 68 16 97 Nasal Cannula 2.0 05/27/16 04:00 Nasal Cannula 2.0 05/27/16 03:24 36.7 63 21 129/75 95 CPAP 3.0 05/27/16 01:50 70 16 97 BiPAP/CPAP 3.0 05/26/16 23:59 Nasal Cannula 2.0 05/26/16 23:20 36.5 79 26 160/71 93 Nasal Cannula 2.0 05/26/16 20:00 Nasal Cannula 2.0 05/26/16 19:53 36.6 73 20 169/81 94 Nasal Cannula 2.0 05/26/16 19:21 74 18 96 Nasal Cannula 2.0 05/26/16 16:00 Nasal Cannula 2.0 05/26/16 15:36 36.7 63 22 145/81 95 Nasal Cannula 2.0 05/26/16 14:10 66 18 96 Nasal Cannula 2.0 05/26/16 12:00 Nasal Cannula 2.0 05/26/16 11:48 36.4 67 20 154/80 95 Nasal Cannula 2.0 Physical Exam General Appearance: no apparent distress, + obese Eyes: normal inspection, EOMI, sclerae normal ENT: normal ENT inspection, hearing grossly normal, pharynx normal Neck: supple, no adenopathy, no JVD, trachea midline Respiratory/Chest: chest non-tender, lungs clear, normal breath sounds, no respiratory distress, no accessory muscle use Cardiovascular: regular rate, rhythm, no gallop, no JVD, no murmur Abdomen: normal bowel sounds, non tender, soft, no organomegaly Extremities: normal range of motion, non-tender, normal inspection, no calf tenderness, + pedal edema (left leg, mild) Neurologic/Psychiatric: 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 nml as tested, no motor/sensory deficits, alert, normal mood/affect, oriented x 3 Skin: normal color, warm/dry, no rash Laboratory Results Last 24 Hours Test 05/26/16 16:03 05/26/16 20:30 05/27/16 05:30 05/27/16 07:22 Bedside Glucose 147 mg/dl 172 mg/dl 60 mg/dl White Blood Count 6.99 K/uL Red Blood Count 4.26 M/uL Hemoglobin 11.5 g/dL Hematocrit 36.1 % Mean Corpuscular Volume 84.7 fL Mean Corpuscular Hemoglobin 27.0 pg Mean Corpuscular Hemoglobin Concent 31.9 g/dl Platelet Count 251 K/uL Mean Platelet Volume 10.8 fL Neutrophils (%) (Auto) 62.6 % Lymphocytes (%) (Auto) 22.5 % Monocytes (%) (Auto) 9.7 % Eosinophils (%) (Auto) 4.9 % Basophils (%) (Auto) 0.3 % Neutrophils # (Auto) 4.38 K/uL Lymphocytes # (Auto) 1.57 K/uL Monocytes # (Auto) 0.68 K/uL Eosinophils # (Auto) 0.34 K/uL Basophils # (Auto) 0.02 K/uL RDW Standard Deviation 47.7 fL RDW Coefficient of Variation 15.4 % Immature Granulocyte % (Auto) 0.0 % Immature Granulocyte # (Auto) 0.00 K/uL Prothrombin Time 12.1 SECONDS Prothromb Time International Ratio 1.1 Activated Partial Thromboplast Time 77.9 SECONDS Partial Thromboplastin Ratio 3.0 Sodium Level 144 mmol/L Potassium Level 3.8 mmol/L Chloride Level 104 mmol/L Carbon Dioxide Level 29 mmol/L Anion Gap 11.0 mmol/L Blood Urea Nitrogen 19 mg/dl Creatinine 1.10 mg/dl Est Creatinine Clear Calc Drug Dose 74.2 ml/min Estimated GFR () 59.3 Estimated GFR (Non- 51.2 BUN/Creatinine Ratio 17.3 Random Glucose 73 mg/dl Calcium Level 8.9 mg/dl Magnesium Level 2.0 mg/dl Total Bilirubin 0.4 mg/dl Direct Bilirubin 0.1 mg/dl Aspartate Amino Transf (AST/SGOT) 14 U/L Alanine Aminotransferase (ALT/SGPT) 21 U/L Alkaline Phosphatase 69 U/L Total Protein 6.5 gm/dl Albumin 3.1 gm/dl Test 05/27/16 10:31 Bedside Glucose 123 mg/dl Assessment and Plan 70 yo female with history of obesity, severe knee osteoarthritis, presented with increased shortness of breath Bilateral segmental and subsegmental pulmonary emboli,acute on chronic hypoxemic respiratory failure, COPD- - has DVT in left superficial femoral vein -Check V/Q scan for chronic thromboembolic disease as per Pulm, will be done on Saturday -check ECHO - no right heart strain -appreciate Pulm consult -will vargas out Xarelto or Eliquis - too expensive, will use Coumadin, started on 7.5mg daily, follow INR until > 2.0 -continue Xopenex with Atrovent nebulizers to use every 6 hours while awake and every 2 hours when necessary -continue SYmbicort -supplemental O2 Hypertension, Chronic diastolic CHF, MR-accelerated HTN, now improved: - continue aspirin 81 -continue furosemide 40 mg daily -continue labetalol 800 mg by mouth every morning, 600 mg by mouth every afternoon, and 600 mg by mouth at bedtime - Continue losartan 50 mg by mouth daily, potassium chloride 20 mg by mouth daily and mag oxide 250 mg by mouth daily. Diabetes mellitus type II--continue Humulin N 145 units subcutaneous every morning and 105 units subcutaneous every afternoon - Will place on Accu-Cheks before meals and at bedtime with NovoLog coverage. GERD--change omeprazole 20 mg by mouth daily to pantoprazole 40 mg by mouth every morning. Hypothyroidism--continue levothyroxine sodium 275 g by mouth every morning. Depression--continue Peroxin 40 mg by mouth every afternoon. Hypercholesterolemia--continue simvastatin 40 mg by mouth every afternoon. Nutraceuticals--continue calcium, vitamin D, vitamin B-12, and fish oil as outpatient. anxiety: increased today due to news of in ED with new stroke, PRN Matias Plan: transfer to medical floor today
[2016-05-27] MEDS: WARFARIN SOD 7.5 MG TAB PO SCH (15:22)
[2016-05-27 15:52] LABS: PARTIAL THROMBOPLASTIN RATIO 2.3
[2016-05-27] MEDS: PAROXETINE 20 MG TAB PO SCH (20:34)
[2016-05-27] MEDS: ASPIRIN 81 MG ECTAB PO SCH (20:35)
[2016-05-27] MEDS: SIMVASTATIN 40 MG TAB PO SCH (20:36)
[2016-05-27] MEDS: ZOLPIDEM TARTRATE 5 MG TAB PO PRN (23:24)
[2016-05-28] VITALS (7 sets, daily range): BP systolic 135–171; BP diastolic 70–82; PULSE 64–72; TEMP 36.4–36.7; O2SAT 92–96
[2016-05-28] MEDS: IPRATROPIUM BROMIDE NEB SOLN 0.02% 2.5 ML VIAL INH SCH ×4 (02:24→20:15)
[2016-05-28] MEDS: LEVALBUTEROL 1.25MG/0.5ML NEB INH SCH ×4 (02:24→20:15)
[2016-05-28] MEDS: LEVOTHYROXINE 200 MCG TAB PO SCH (05:58)
[2016-05-28] MEDS: LEVOTHYROXINE 75 MCG TAB PO SCH (05:59)
[2016-05-28 06:21] LABS: INR 1.4 (0.9-1.1); PROTHROMBIN TIME (PATIENT) 15.6 SECONDS (9.0-12.0)
--- NOTE | 2016-05-28 07:00 | PROGRESS NOTE ---
DATE: 05/28/2016 The patient is comfortable this morning. She was out of bed in the chair last night. Her recently was admitted to the hospital with stroke, she was down visiting him last night. She states she feels fairly well. She did take a sleeping pill for sleep last night. She denies cough or significant chest pain. While being out of bed, she tolerated it well. She has not had any significant peripheral edema. There is no evidence of any bleeding. PHYSICAL EXAMINATION: VITAL SIGNS: Stable and she is afebrile. I O was 385 in, 200 out. Weight 154.4 kilograms yesterday. HEENT: Posterior pharynx is unremarkable. NECK: There is no neck vein distention or HJR. HEART: Regular rate and rhythm. LUNGS: Reveal decreased breath sounds, otherwise are clear. ABDOMEN: Soft and obese, nontender. EXTREMITIES: She has no cyanosis or clubbing. MEDICATIONS: Reviewed. H\T\H 11.5 and 36.1% per se yesterday with platelet count 251,000. Sugars have been in the 60-210 range. PRP was unremarkable. Liver function studies are normal. INR is pending. IMPRESSION: 1. Bilateral pulmonary emboli. 2. Chronic obstructive lung disease. 3. Obstructive sleep apnea, well controlled. RECOMMENDATIONS: 1. Increase activity as much as possible. 2. Continue on CPAP each time she sleeps. 3. Once the INR is greater than 1.9, I believe she could go home and I would be glad to follow up with her as an outpatient from a pulmonary standpoint. She can also see Dr. Mooney and hopefully will be able to be enrolled into the Coumadin Clinic. MANNY
[2016-05-28 07:20] LABS: PARTIAL THROMBOPLASTIN RATIO 2.7
[2016-05-28] MEDS: LABETALOL HCL 200 MG TAB PO SCH ×2 (08:15→21:16)
[2016-05-28] MEDS: BUDESONIDE/FORMOTEROL FUMARATE 160/4.5 60 PUFFS/INHALER INH SCH ×2 (08:16→21:15)
[2016-05-28] MEDS: POTASSIUM CHLORIDE 10 MEQ TABCR PO SCH (08:16)
[2016-05-28] MEDS: CYANOCOBALAMIN 500 MCG TAB (VIT B-12) PO SCH (08:17)
[2016-05-28] MEDS: PANTOprazole SOD 40 MG TAB PO SCH (08:17)
[2016-05-28] MEDS: LOSARTAN POTASSIUM 50 MG TAB PO SCH (08:17)
[2016-05-28] MEDS: CHOLECALCIFEROL 1000 INTER.UNIT TAB PO SCH (08:17)
[2016-05-28] MEDS: FUROSEMIDE 40 MG TAB PO SCH (08:17)
[2016-05-28] MEDS: INSULIN ASPART 100 UNITS/ML 3 ML PEN SC SCH ×5 (08:17→21:39)
[2016-05-28] MEDS: INSULIN HUMAN NPH SQ SCH ×2 (08:20→21:21)
--- NOTE | 2016-05-28 11:18 | Hospitalist Progress Note ---
Hospitalist Progress Note Date of Service May 28, 2016. Subjective Pt evaluation today including: conversation w/ patient, physical exam, chart review, lab review, review of studies, review of inpatient medication list Pain: None PO Intake: Good Voiding: no voiding problems Pt was seen and examined this morning. She is sitting up in bedside chair, talking with a friend at bedside. She reports breathing is improved, and that she doesn't have the "warming, tight sensation" she had previously in her chest. She denies SOB with ambulation to the bathroom. She overall feels well. Pt has been using O2 via NC @ 2 L, but does not require this at home. She does wear CPAP at night. Constitutional: No chills, No fever, No sweats ENT: No sore throat, No tinnitus, No unusual epistaxis Respiratory: No cough, No dyspnea at rest, No dyspnea on exertion, No wheezing Cardiovascular: No chest pain, No palpitations Abdomen: No constipation, No diarrhea, No nausea, No vomiting Musculoskeletal: + swelling (bilateral LE, chronic. ), No joint pain Female : No dysuria, No hematuria Neurologic: No numbness/tingling, No weakness Endo: No fatigue Skin: + problem reported (chronic venous stasis changes. ), No rash Objective Vital Signs Date Time Temp Pulse Resp B/P Pulse Ox O2 Delivery O2 Flow Rate FiO2 05/28/16 08:59 Nasal Cannula 2.0 05/28/16 08:20 36.7 65 18 171/82 96 2.0 05/28/16 07:18 64 16 96 Nasal Cannula 2.0 05/28/16 02:24 68 16 92 Nasal Cannula 2.0 05/28/16 00:00 Nasal Cannula 2.0 05/27/16 23:55 36.9 68 20 138/72 90 05/27/16 20:00 Nasal Cannula 2.0 05/27/16 19:17 68 16 96 Nasal Cannula 1.5 05/27/16 15:45 Nasal Cannula 2.0 05/27/16 14:20 36.5 68 18 145/72 95 Room Air 05/27/16 14:10 36.7 66 16 95 2.0 05/27/16 14:04 66 16 95 Nasal Cannula 2.0 05/27/16 12:41 36.7 64 18 163/71 96 Nasal Cannula 2.0 05/27/16 12:15 Nasal Cannula 2.0 Physical Exam General Appearance: WD/WN, no apparent distress, + obese (morbidly obese, BMI 55.0) Eyes: PERRL, EOMI ENT: hearing grossly normal, pharynx normal Neck: supple, no JVD Respiratory/Chest: lungs clear (difficult to auscultate due to body habitus, wearing 2L O2 via NC), normal breath sounds, no respiratory distress, no accessory muscle use Cardiovascular: regular rate, rhythm, no JVD, no murmur Abdomen: normal bowel sounds, non tender, soft Extremities: non-tender, no calf tenderness, + swelling (in bilateral LE, +1 Pitting, + chronic venous stasis changes.) Neurologic/Psychiatric: alert, normal mood/affect, oriented x 3 Skin: warm/dry, no rash Laboratory Results Last 24 Hours Test 05/27/16 15:30 05/27/16 16:33 05/27/16 20:10 05/28/16 05:35 Activated Partial Thromboplast Time 60.1 SECONDS 71.1 SECONDS Partial Thromboplastin Ratio 2.3 2.7 Bedside Glucose 172 mg/dl 210 mg/dl Prothrombin Time 15.6 SECONDS Prothromb Time International Ratio 1.4 Test 05/28/16 07:51 Bedside Glucose 102 mg/dl Assessment and Plan 70 yo female with history of obesity, severe knee osteoarthritis, presented with increased shortness of breath Bilateral segmental and subsegmental pulmonary emboli,acute on chronic hypoxemic respiratory failure, COPD - has DVT in left superficial femoral vein -Check V/Q scan for chronic thromboembolic disease as per Pulm, will be done on Saturday- awaiting study and results - ECHO completed - no right heart strain -Pulm on board- appreciate recs. - Continue Coumadin, started on 7.5mg daily, follow INR until > 2.0, Today INR= 1.4 - Pulm would like to see INR get to 1.9 and then think she is stable for discharge with coumadin clinic follow up. -continue Xopenex with Atrovent nebulizers to use every 6 hours while awake and every 2 hours when necessary -continue Symbicort -supplemental O2 prn, continue CPAP at night. 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 Diabetes mellitus type II- -continue Humulin N 145 units subcutaneous every morning and 105 units subcutaneous every afternoon - Will place on Accu-Cheks before meals and at bedtime with NovoLog coverage. GERD- - Cont PPI, protonix 40 mg by mouth every morning. Hypothyroidism- -continue levothyroxine sodium 275 g by mouth every morning. Depression- -continue Paxil 40 mg by mouth every afternoon. Hypercholesterolemia- -continue simvastatin 40 mg by mouth every afternoon. Nutraceuticals- -continue calcium, vitamin D, vitamin B-12, and fish oil as outpatient. Anxiety: increased today due to news of in ED with new stroke, PRN Ativan CODE STATUS: FULL CODE Disposition: From home, discharge once INR reaches 2.0 with coumadin clinic f/u.
[2016-05-28 13:56] LABS: PARTIAL THROMBOPLASTIN RATIO 2.6
[2016-05-28] MEDS: HEPARIN 25,000 UNIT/500ML D5W 500 ML IV PRN (14:26)
[2016-05-28] MEDS: WARFARIN SOD 5 MG TAB PO SCH (16:06)
[2016-05-28] MEDS: ASPIRIN 81 MG ECTAB PO SCH (21:15)
[2016-05-28] MEDS: PAROXETINE 20 MG TAB PO SCH (21:16)
[2016-05-28] MEDS: SIMVASTATIN 40 MG TAB PO SCH (21:16)
[2016-05-29 01:26] VITALS: PULSE 68; O2SAT 96
[2016-05-29] MEDS: LEVOTHYROXINE 75 MCG TAB PO SCH (05:52)
[2016-05-29] MEDS: LEVOTHYROXINE 200 MCG TAB PO SCH (05:52)
[2016-05-29 06:03] LABS: INR 1.8 (0.9-1.1); PROTHROMBIN TIME (PATIENT) 19.2 SECONDS (9.0-12.0)
--- NOTE | 2016-05-29 06:42 | PROGRESS NOTE ---
DATE: 05/29/2016 The patient is considerably improved since the time of admission. She denies any chest pain, has not had any bleeding. She states her breathing is 100% improved. She slept fairly well last night. Her has had a stroke and she was down visiting him yesterday again. She does go in a wheelchair. She has not been walking very much. She does have some compression stockings on her legs, as well. PHYSICAL EXAMINATION: VITAL SIGNS: Her vital signs were stable. Oxygen saturation is 96% on 3 liters, blood pressure 135/71. Her weight was 154.4 kilograms yesterday. Examination now reveals her vital signs to be stable and she is afebrile. HEENT: Posterior pharynx is unremarkable. NECK: No neck vein distention or HJR is noted. HEART: Regular rate and rhythm, second heart sound normal. LUNGS: Reveal decreased breath sounds; otherwise, are clear. ABDOMEN: Soft, nontender. EXTREMITIES: She has +2 edema of the pretibial area. LABORATORY DATA: Hematocrit was 36%, while the white count was 6.99 on . Sugars have been in the 79-210 range. The INR was 1.8 yesterday. IMPRESSION: 1. Bilateral pulmonary emboli. 2. Chronic obstructive lung disease. 3. Diabetes mellitus. 4. Obesity. 5. Obstructive sleep apnea. RECOMMENDATIONS: At this point, I would continue with her present medications. Once her INR is greater than 1.9, believe she could be discharged on Coumadin and be followed in the Coumadin clinic. I will continue with the other medications. Good glucose control. Certainly, continue on the Symbicort. The hydralazine has worked well for coverage of her blood pressure. Weight reduction, restrictive 1500-mg sodium diet will be recommended and I discussed that with her today, as well.
[2016-05-29] MEDS: IPRATROPIUM BROMIDE NEB SOLN 0.02% 2.5 ML VIAL INH SCH ×3 (07:16→19:25)
[2016-05-29] MEDS: LEVALBUTEROL 1.25MG/0.5ML NEB INH SCH ×3 (07:16→19:25)
[2016-05-29 07:18] VITALS: PULSE 74; O2SAT 98
[2016-05-29 08:17] LABS: PARTIAL THROMBOPLASTIN RATIO 2.5
[2016-05-29 08:18] VITALS: BP 167/81; PULSE 65; TEMP 36.7; O2SAT 96
[2016-05-29] MEDS: BUDESONIDE/FORMOTEROL FUMARATE 160/4.5 60 PUFFS/INHALER INH SCH ×2 (08:47→21:24)
[2016-05-29] MEDS: LOSARTAN POTASSIUM 50 MG TAB PO SCH (08:48)
[2016-05-29] MEDS: FUROSEMIDE 40 MG TAB PO SCH (08:48)
[2016-05-29] MEDS: LABETALOL HCL 200 MG TAB PO SCH ×2 (08:49→21:23)
[2016-05-29] MEDS: CYANOCOBALAMIN 500 MCG TAB (VIT B-12) PO SCH (08:50)
[2016-05-29] MEDS: PANTOprazole SOD 40 MG TAB PO SCH (08:50)
[2016-05-29] MEDS: CHOLECALCIFEROL 1000 INTER.UNIT TAB PO SCH (08:51)
[2016-05-29] MEDS: POTASSIUM CHLORIDE 10 MEQ TABCR PO SCH (08:51)
[2016-05-29] MEDS: INSULIN ASPART 100 UNITS/ML 3 ML PEN SC SCH ×4 (08:54→21:32)
[2016-05-29] MEDS: INSULIN HUMAN NPH SQ SCH ×2 (09:08→21:32)
[2016-05-29] MEDS: HEPARIN 25,000 UNIT/500ML D5W 500 ML IV PRN (09:11)
--- NOTE | 2016-05-29 09:35 | Hospitalist Progress Note ---
Hospitalist Progress Note Date of Service May 29, 2016. (Sis Curry PA-C) 05/29/16 (Marina Cadena MD) Subjective Pt evaluation today including: conversation w/ patient, physical exam, chart review, lab review, review of studies, review of inpatient medication list Pain: None PO Intake: Good Voiding: no voiding problems Pt was seen and examined this morning. She has no new complaints. Breathing is improving a little, she still feels sob with exertion while wearing 3L O2 via NC. Pt has been ambulating more on the floor. INR=1.8 today so will keep her for one more day and then likely will be able to dc home. Constitutional: No chills, No fever, No sweats ENT: No nasal symptoms, No sore throat, No tinnitus Respiratory: No cough, No dyspnea at rest, No dyspnea on exertion, No shortness of breath, No sputum Cardiovascular: No chest pain, No palpitations Abdomen: No constipation, No diarrhea, No nausea, No pain, No vomiting Musculoskeletal: No calf pain, No joint pain, No swelling Female : No dysuria, No incontinence Endo: No fatigue Skin: No rash (Sis Curry PA-C) Pt evaluation today including: conversation w/ patient, chart review, review of studies, review of inpatient medication list seen and examined and addressed with PA sitting on chair awake and alert, afebrile, noCp or SOB, looks and feels better cont hep drip till INR therapeutic cont rest of management agree with Katie`s note and plan radha carney and her nurse (Marina Cadena MD) Objective Vital Signs Date Time Temp Pulse Resp B/P Pulse Ox O2 Delivery O2 Flow Rate FiO2 05/29/16 08:18 36.7 65 18 167/81 96 Nasal Cannula 3.0 05/29/16 07:18 74 14 98 Nasal Cannula 4.0 05/29/16 01:26 68 18 96 Nasal Cannula 3.0 05/29/16 00:00 CPAP 05/28/16 23:21 36.5 72 16 135/71 94 Room Air 05/28/16 16:30 94 Nasal Cannula 2.0 05/28/16 16:15 36.4 68 20 158/70 94 Nasal Cannula 2.0 05/28/16 13:52 65 18 95 Nasal Cannula 2.0 (Sis Curry PA-C) Physical Exam General Appearance: WD/WN, + obese, + pertinent finding (becomes short of breath with rolling in the bed for me to auscultate posterior lung barnes) Eyes: PERRL, EOMI ENT: hearing grossly normal, pharynx normal Neck: no JVD Respiratory/Chest: chest non-tender, lungs clear (difficult to auscultate due to body habitus, no adventitious breath sounds appreciated.), no respiratory distress, no accessory muscle use Cardiovascular: regular rate, rhythm, no murmur Abdomen: normal bowel sounds, non tender, soft Extremities: non-tender, no calf tenderness, + pertinent finding (chronic venous stasis changes of bilateral LE. Good capillary refill. + echymosis over left antecubital region.) Neurologic/Psychiatric: alert, normal mood/affect, oriented x 3 Skin: warm/dry (Sis Curry PA-C) Laboratory Results Last 24 Hours Test 05/28/16 12:03 05/28/16 13:27 05/28/16 16:39 05/28/16 21:19 Bedside Glucose 79 mg/dl 84 mg/dl 112 mg/dl Activated Partial Thromboplast Time 66.5 SECONDS Partial Thromboplastin Ratio 2.6 Test 05/29/16 05:02 05/29/16 07:41 Prothrombin Time 19.2 SECONDS Prothromb Time International Ratio 1.8 Activated Partial Thromboplast Time 64.7 SECONDS Partial Thromboplastin Ratio 2.5 Bedside Glucose 145 mg/dl (Sis Curry PA-C) Assessment and Plan 70 yo female with history of obesity, severe knee osteoarthritis, presented with increased shortness of breath Bilateral segmental and subsegmental pulmonary emboli,acute on chronic hypoxemic respiratory failure, COPD - has DVT in left superficial femoral vein - Check V/Q scan for chronic thromboembolic disease as per Pulm,awaiting study and results - ECHO completed - no right heart strain -Pulm on board- appreciate recs. - Continue Coumadin, given 5 mg last night, follow INR until > 2.0, Today INR= 1.8 - Pulm would like to see INR get to 1.9 and then think she is stable for discharge with coumadin clinic follow up. Likely dc tomorrow. -continue Xopenex with Atrovent nebulizers to use every 6 hours while awake and every 2 hours when necessary -continue Symbicort -supplemental O2 prn, continue CPAP at night. 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 Diabetes mellitus type II- -continue Humulin N 145 units subcutaneous every morning and 105 units subcutaneous every afternoon - Accu-Cheks before meals and at bedtime with NovoLog coverage. GERD- - Cont PPI, protonix 40 mg by mouth every morning. Hypothyroidism- -continue levothyroxine sodium 275 g by mouth every morning. Depression- -continue Paxil 40 mg by mouth every afternoon. Hypercholesterolemia- -continue simvastatin 40 mg by mouth every afternoon. Nutraceuticals- -continue calcium, vitamin D, vitamin B-12, and fish oil as outpatient. Anxiety: increased today due to news of in ED with new stroke, PRN Ativan Discharge planning: Pt will need CM assistance to help determine need for home health and/or services. DVT ppx: teds, coumadin CODE STATUS: FULL CODE Disposition: From home, discharge once INR reaches 2.0 with coumadin clinic f/u. (Sis Curry PA-C)
[2016-05-29 14:49] VITALS: PULSE 74; O2SAT 97
[2016-05-29] MEDS: WARFARIN SOD 5 MG TAB PO SCH (15:27)
[2016-05-29 15:42] VITALS: BP 123/75; PULSE 64; TEMP 36.7; O2SAT 95
[2016-05-29 19:29] VITALS: PULSE 77; O2SAT 98
[2016-05-29] MEDS: PAROXETINE 20 MG TAB PO SCH (21:23)
[2016-05-29] MEDS: SIMVASTATIN 40 MG TAB PO SCH (21:23)
[2016-05-29] MEDS: ASPIRIN 81 MG ECTAB PO SCH (21:24)
[2016-05-30] VITALS (8 sets, daily range): BP systolic 146–152; BP diastolic 70–77; PULSE 64–76; TEMP 36.5–36.6; O2SAT 91–96
[2016-05-30] MEDS: HEPARIN 25,000 UNIT/500ML D5W 500 ML IV PRN ×2 (01:29→19:59)
[2016-05-30] MEDS: LEVALBUTEROL 1.25MG/0.5ML NEB INH SCH ×4 (02:04→19:04)
[2016-05-30] MEDS: IPRATROPIUM BROMIDE NEB SOLN 0.02% 2.5 ML VIAL INH SCH ×4 (02:04→19:04)
[2016-05-30] MEDS: LEVOTHYROXINE 200 MCG TAB PO SCH (06:16)
[2016-05-30] MEDS: LEVOTHYROXINE 75 MCG TAB PO SCH (06:17)
[2016-05-30 06:20] LABS: INR 1.7 (0.9-1.1); PARTIAL THROMBOPLASTIN RATIO 2.7; PROTHROMBIN TIME (PATIENT) 18.5 SECONDS (9.0-12.0)
[2016-05-30] MEDS: FUROSEMIDE 40 MG TAB PO SCH (08:06)
[2016-05-30] MEDS: LOSARTAN POTASSIUM 50 MG TAB PO SCH (08:06)
[2016-05-30] MEDS: CYANOCOBALAMIN 500 MCG TAB (VIT B-12) PO SCH (08:06)
[2016-05-30] MEDS: LABETALOL HCL 200 MG TAB PO SCH ×2 (08:06→20:47)
[2016-05-30] MEDS: CHOLECALCIFEROL 1000 INTER.UNIT TAB PO SCH (08:07)
[2016-05-30] MEDS: BUDESONIDE/FORMOTEROL FUMARATE 160/4.5 60 PUFFS/INHALER INH SCH ×2 (08:07→20:48)
[2016-05-30] MEDS: POTASSIUM CHLORIDE 10 MEQ TABCR PO SCH (08:07)
[2016-05-30] MEDS: PANTOprazole SOD 40 MG TAB PO SCH (08:07)
[2016-05-30] MEDS: INSULIN HUMAN NPH SQ SCH ×2 (08:14→20:56)
[2016-05-30] MEDS: INSULIN ASPART 100 UNITS/ML 3 ML PEN SC SCH ×4 (08:30→20:49)
--- NOTE | 2016-05-30 14:50 | Progress Note ---
Subjective Date of Service: May 30, 2016. Subjective Pt evaluation today including: conversation w/ patient, chart review, review of studies, review of inpatient medication list Pain: none PO Intake: well Voiding: no voiding problems seen and examined awake and alert, afebrile, no CP or SOB, no N or V, no bleeding event still on O2 still on hep drip and INR actually lower today then yesterday Problem List Medical Problems: (1) Bilateral lower leg cellulitis Status: Acute (2) Dyspnea Status: Acute (3) Fluid overload Status: Acute (4) Left leg cellulitis Status: Acute (5) Lump in throat Status: Acute (6) Morbid obesity Status: Acute (7) Shortness of breath Status: Acute (8) Shortness of breath Status: Acute Review of Systems Constitutional: No chills, No fatigue, No fever, No problem reported, No see HPI, No sweats, No weakness, No weight loss Eyes: No diplopia, No discharge, No eye pain, No problem reported, No redness, No see HPI, No worsening of vision ENT: No dental problems, No hearing loss, No nasal symptoms, No problem reported, No see HPI, No sore throat, No tinnitus, No trouble swallowing, No unusual epistaxis Respiratory: No cough, No dyspnea at rest, No dyspnea on exertion, No hemoptysis, No problem reported, No see HPI, No shortness of breath, No sputum, No wheezing Cardiac: No PND, No chest pain, No claudication, No edema, No orthopnea, No palpitations, No problem reported, No see HPI Abdomen: No GI bleeding, No constipation, No diarrhea, No nausea, No pain, No problem reported, No see HPI, No vomiting Musculoskeletal: No calf pain, No joint pain, No muscle pain, No problem reported, No see HPI, No swelling Female : No abnormal vaginal bleeding, No dysuria, No hematuria, No incontinence, No problem reported, No see HPI, No urinary frequency, No vaginal discharge Neurologic: No balance problems, No memory loss, No numbness/tingling, No paralysis, No problem reported, No see HPI, No vertigo, No weakness Psychiatric: No anhedonism, No anxiety, No depression symptoms, No insomnia, No problem reported, No see HPI, No substance abuse Heme: No abnormal bleeding/bruising, No clotting problems, No night sweats, No problem reported, No see HPI, No swollen lymph nodes Endo: No excessive thirst, No excessive urination, No fatigue, No problem reported, No see HPI Medications Current Inpatient Medications Medications (Trade) Dose Ordered Sig/Marcelina Route Start Time Stop Time Status Last Admin Dose Admin Acetaminophen (Tylenol Tab) 650 mg Q4H PRN PO 05/24/16 15:30 06/23/16 15:29 05/25/16 06:07 650 MG Zolpidem Tartrate (Ambien Tab) 5 mg HSZ PRN PO 05/24/16 15:30 06/23/16 15:29 05/27/16 23:24 5 MG Aspirin (Ecotrin Tab) 81 mg HS PO 05/24/16 21:00 06/23/16 20:59 05/29/16 21:24 81 MG Cholecalciferol (Vitamin D Tab) 3,000 inter.unit DAILY PO 05/25/16 09:00 06/24/16 08:59 05/30/16 08:07 3,000 INTER.UNIT Cyanocobalamin (Vitamin B-12 Tab) 1,000 mcg DAILY PO 05/25/16 09:00 06/24/16 08:59 05/30/16 08:06 1,000 MCG Furosemide (Lasix tab) 40 mg DAILY PO 05/25/16 09:00 06/24/16 08:59 05/30/16 08:06 40 MG Labetalol HCl (Normodyne Tab) 600 mg QPM PO 05/24/16 21:00 06/23/16 20:59 05/29/16 21:23 600 MG Labetalol HCl (Normodyne Tab) 800 mg QAM PO 05/25/16 09:00 06/24/16 08:59 05/30/16 08:06 800 MG Levothyroxine Sodium (Synthroid Tab) 75 mcg DAILYBB PO 05/25/16 06:00 06/24/16 05:59 05/30/16 06:17 75 MCG Levothyroxine Sodium (Synthroid Tab) 200 mcg DAILYBB PO 05/25/16 06:00 06/24/16 05:59 05/30/16 06:16 200 MCG Losartan Potassium (coZAAR TAB) 50 mg DAILY PO 05/25/16 09:00 06/24/16 08:59 05/30/16 08:06 50 MG Paroxetine HCl (pAXil TAB) 40 mg QPM PO 05/24/16 21:00 06/23/16 20:59 05/29/16 21:23 40 MG Potassium Chloride (Klor-Con M10) 20 meq DAILY PO 05/25/16 09:00 06/24/16 08:59 05/30/16 08:07 20 MEQ Simvastatin (Zocor Tab) 40 mg QPM PO 05/24/16 21:00 06/23/16 20:59 05/29/16 21:23 40 MG Pantoprazole Sodium (Protonix Tab) 40 mg QAM PO 05/25/16 09:00 06/24/16 08:59 05/30/16 08:07 40 MG Ondansetron HCl 4 mg 4 mg Q6H PRN IV 05/24/16 15:30 06/23/16 15:29 Acetaminophen (Ofirmev Iv) 100 ml @ 400 mls/hr Q8H PRN IV 05/24/16 15:30 06/23/16 15:29 Lorazepam (Ativan Inj) 0.5 mg Q4H PRN IV 05/24/16 15:30 06/23/16 15:29 05/27/16 13:00 0.5 MG Lorazepam (Ativan Inj) 1 mg Q4H PRN IV 05/24/16 15:30 06/23/16 15:29 Morphine Sulfate (MoRPHine SULFATE INJ) 2 mg Q2H PRN IV 05/24/16 15:30 06/07/16 15:29 Morphine Sulfate 4 mg 4 mg Q2H PRN IV 05/24/16 15:30 06/07/16 15:29 Heparin Sodium/ Dextrose (Heparin 25,000 Unit/500ml D5W) 500 ml @ 27 mls/hr [id number] PRN IV 05/24/16 16:00 06/23/16 15:59 05/30/16 01:29 29 MLS/HR Glucose (Glucose 40% Gel) 15-30 GRAMS 15 GRAMS... UD PRN PO 05/24/16 16:15 06/23/16 16:14 Glucose (Glucose Chew Tab) 4-8 Tablets 4 Tabl... UD PRN PO 05/24/16 16:15 06/23/16 16:14 Dextrose (Dextrose 50% 50ML Syringe) 25-50ML OF 50% DW IV FOR... UD PRN IV 05/24/16 16:15 06/23/16 16:14 Glucagon (Glucagon Inj) 1 mg UD PRN SQ 05/24/16 16:15 06/23/16 16:14 Ipratropium [place] (Atrovent 0.02% 0.5MG/2.5ML Neb) 0.5 mg Q6R INH 05/24/16 21:00 06/23/16 20:59 05/30/16 14:14 0.5 MG Levalbuterol (Xopenex 1.25MG/ 0.5ML Neb) 1.25 mg Q6R INH 05/24/16 21:00 06/23/16 20:59 05/30/16 14:14 1.25 MG Ipratropium [place] (Atrovent 0.02% 0.5MG/2.5ML Neb) 0.5 mg Q2R PRN INH 05/24/16 19:15 06/23/16 19:14 Levalbuterol 1.25 mg 1.25 mg Q2R PRN INH 05/24/16 19:15 06/23/16 19:14 Lorazepam 0.5 mg/ Syringe 1 ml @ 1 mls/min Q4H PRN IV 05/24/16 19:15 06/23/16 19:14 Lorazepam/Syringe (Ativan Inj/ Syringe) 1 ml @ 1 mls/min Q4H PRN IV 05/24/16 19:15 06/23/16 19:14 Budesonide/ Formoterol Fumarate (Symbicort 160/ 4.5 Inh) 2 puffs BID INH 05/25/16 21:00 06/24/16 20:59 05/30/16 08:07 2 PUFFS Hydralazine HCl (HydrALAZINE INJ) 10 mg Q8 PRN IV. 05/25/16 15:00 06/24/16 14:59 Insulin Human NPH (novoLIN-N NPH) 75 units QPM SQ 05/26/16 21:00 06/25/16 20:59 05/29/16 21:32 75 UNITS Insulin Human NPH (novoLIN-N NPH) 125 units QAM SQ 05/27/16 09:00 06/26/16 08:59 12/28/16 08:14 125 UNITS Insulin Aspart (novoLOG ASPART) SLIDING SCALE G... ACHS SC 05/26/16 16:15 06/25/16 16:14 05/27/16 21:18 1 UNITS Warfarin Sodium (Coumadin Tab) 5 mg DAILY@16 PO 05/28/16 16:00 06/27/16 15:59 05/29/16 15:27 5 MG Objective Vital Signs Date Time Temp Pulse Resp B/P Pulse Ox O2 Delivery O2 Flow Rate FiO2 05/30/16 14:15 64 16 95 Nasal Cannula 1.0 05/30/16 08:30 91 Nasal Cannula 2.0 05/30/16 08:00 36.6 76 22 146/70 91 2.0 05/30/16 07:20 66 16 95 Nasal Cannula 2.0 05/30/16 02:04 71 16 96 Nasal Cannula 2.0 05/30/16 00:59 36.6 73 19 152/74 95 Nasal Cannula 3.0 05/30/16 00:00 Nasal Cannula 2.0 05/29/16 19:29 77 16 98 Nasal Cannula 3.0 05/29/16 16:00 Nasal Cannula 2.0 05/29/16 15:42 36.7 64 18 123/75 95 Nasal Cannula 3.0 05/29/16 14:49 74 14 97 Nasal Cannula 3.0 Physical Exam General Appearance: WD/WN, + obese Eyes: normal inspection ENT: normal ENT inspection, hearing grossly normal Neck: supple, no adenopathy, thyroid normal Respiratory/Chest: chest non-tender, lungs clear, normal breath sounds, no respiratory distress Cardiovascular: regular rate, rhythm, no edema, no gallop, no JVD, no murmur Abdomen: normal bowel sounds, non tender, soft, no organomegaly Extremities: normal range of motion, non-tender, normal inspection, no pedal edema Neurologic/Psychiatric: no motor/sensory deficits, alert, normal mood/affect, oriented x 3 Skin: normal color, warm/dry, no rash Laboratory Results Last 24 Hours Test 05/29/16 17:15 05/29/16 21:29 05/30/16 05:34 05/30/16 07:09 Bedside Glucose 157 mg/dl 141 mg/dl 123 mg/dl Prothrombin Time 18.5 SECONDS Prothromb Time International Ratio 1.7 Activated Partial Thromboplast Time 70.0 SECONDS Partial Thromboplastin Ratio 2.7 Test 05/30/16 11:57 Bedside Glucose 125 mg/dl Assessment and Plan 70 yo female with history of obesity, severe knee osteoarthritis, presented with increased shortness of breath Bilateral segmental and subsegmental pulmonary emboli,acute on chronic hypoxemic respiratory failure, COPD - DVT in left superficial femoral vein - ECHO completed - no right heart strain -VQ scan dced by pul -Pulm on board- appreciate recs. - Continue heap drip and Coumadin,goal INR until > 2.0, Today INR=1.7 which less than yesterday , will increase Coumadin to 7.5 mg for tonight and follow in am -continue Xopenex with Atrovent nebulizers to use every 6 hours while awake and every 2 hours when necessary -continue Symbicort -supplemental O2 prn, continue CPAP at night. 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 Diabetes mellitus type II- -continue Humulin N 145 units subcutaneous every morning and 105 units subcutaneous every afternoon - Accu-Cheks before meals and at bedtime with NovoLog coverage. GERD- - Cont PPI, protonix 40 mg by mouth every morning. Hypothyroidism- -continue levothyroxine sodium 275 g by mouth every morning. Depression- -continue Paxil 40 mg by mouth every afternoon. Hypercholesterolemia- -continue simvastatin 40 mg by mouth every afternoon. Nutraceuticals- -continue calcium, vitamin D, vitamin B-12, and fish oil as outpatient. Anxiety: increased today due to news of in ED with new stroke, PRN Ativan Discharge planning: Pt will need CM assistance to help determine need for home health and/or services. DVT ppx: teds, heparin and Coumadin CODE STATUS: FULL CODE Disposition: From home, discharge once INR reaches 2.0 with Coumadin clinic f/u.
[2016-05-30] MEDS: WARFARIN SOD 7.5 MG TAB PO SCH (15:40)
[2016-05-30 18:55] LABS: PARTIAL THROMBOPLASTIN RATIO 2.6
[2016-05-30] MEDS: ASPIRIN 81 MG ECTAB PO SCH (20:46)
[2016-05-30] MEDS: PAROXETINE 20 MG TAB PO SCH (20:47)
[2016-05-30] MEDS: SIMVASTATIN 40 MG TAB PO SCH (20:47)
[2016-05-30] MEDS: ZOLPIDEM TARTRATE 5 MG TAB PO PRN (23:31)
[2016-05-31] VITALS (8 sets, daily range): BP systolic 128–179; BP diastolic 71–80; PULSE 69–78; TEMP 36.4–36.9; O2SAT 94–96
[2016-05-31] MEDS: IPRATROPIUM BROMIDE NEB SOLN 0.02% 2.5 ML VIAL INH SCH ×4 (01:30→19:20)
[2016-05-31] MEDS: LEVALBUTEROL 1.25MG/0.5ML NEB INH SCH ×4 (01:30→19:15)
[2016-05-31] MEDS: LEVOTHYROXINE 200 MCG TAB PO SCH (05:26)
[2016-05-31] MEDS: LEVOTHYROXINE 75 MCG TAB PO SCH (05:26)
[2016-05-31] MEDS: INSULIN ASPART 100 UNITS/ML 3 ML PEN SC SCH ×4 (06:30→20:35)
[2016-05-31 07:02] LABS: PARTIAL THROMBOPLASTIN RATIO 2.6
[2016-05-31] MEDS: HEPARIN 25,000 UNIT/500ML D5W 500 ML IV PRN ×3 (07:02→14:21)
[2016-05-31] MEDS: BUDESONIDE/FORMOTEROL FUMARATE 160/4.5 60 PUFFS/INHALER INH SCH ×2 (07:48→20:33)
[2016-05-31] MEDS: CHOLECALCIFEROL 1000 INTER.UNIT TAB PO SCH (07:49)
[2016-05-31] MEDS: PANTOprazole SOD 40 MG TAB PO SCH (07:49)
[2016-05-31] MEDS: CYANOCOBALAMIN 500 MCG TAB (VIT B-12) PO SCH (07:49)
[2016-05-31] MEDS: FUROSEMIDE 40 MG TAB PO SCH (07:49)
[2016-05-31] MEDS: LOSARTAN POTASSIUM 50 MG TAB PO SCH (07:49)
[2016-05-31] MEDS: POTASSIUM CHLORIDE 10 MEQ TABCR PO SCH (07:50)
[2016-05-31] MEDS: LABETALOL HCL 200 MG TAB PO SCH ×2 (07:50→20:40)
[2016-05-31 08:40] LABS: INR 1.8 (0.9-1.1); PROTHROMBIN TIME (PATIENT) 20.1 SECONDS (9.0-12.0)
[2016-05-31] MEDS: INSULIN HUMAN NPH SQ SCH ×2 (09:36→20:37)
[2016-05-31] MEDS ORDERED: METHYLPREDNISOLONE 125 MG VIAL IV STA (11:38)
[2016-05-31] MEDS ORDERED: METHYLPREDNISOLONE 125 MG in SYRINGE 0 ML IV SCH (12:30)
--- NOTE | 2016-05-31 12:39 | Progress Note ---
Subjective Date of Service: May 31, 2016. Subjective Pt evaluation today including: conversation w/ patient Pain: none PO Intake: well seen and examined and has mild SOB and audible wheezing, no CP or fever , has dry cough, still on hep drip and INR is 1.8 Problem List Medical Problems: (1) Bilateral lower leg cellulitis Status: Acute (2) Dyspnea Status: Acute (3) Fluid overload Status: Acute (4) Left leg cellulitis Status: Acute (5) Lump in throat Status: Acute (6) Morbid obesity Status: Acute (7) Shortness of breath Status: Acute (8) Shortness of breath Status: Acute Review of Systems Constitutional: No chills, No fatigue, No fever, No problem reported, No see HPI, No sweats, No weakness, No weight loss Eyes: No diplopia, No discharge, No eye pain, No problem reported, No redness, No see HPI, No worsening of vision ENT: No dental problems, No hearing loss, No nasal symptoms, No problem reported, No see HPI, No sore throat, No tinnitus, No trouble swallowing, No unusual epistaxis Respiratory: + cough, + shortness of breath, + wheezing Cardiac: No PND, No chest pain, No claudication, No edema, No orthopnea, No palpitations, No problem reported, No see HPI Abdomen: No GI bleeding, No constipation, No diarrhea, No nausea, No pain, No problem reported, No see HPI, No vomiting Musculoskeletal: No calf pain, No joint pain, No muscle pain, No problem reported, No see HPI, No swelling Female : No abnormal vaginal bleeding, No dysuria, No hematuria, No incontinence, No problem reported, No see HPI, No urinary frequency, No vaginal discharge Neurologic: No balance problems, No memory loss, No numbness/tingling, No paralysis, No problem reported, No see HPI, No vertigo, No weakness Medications Current Inpatient Medications Medications (Trade) Dose Ordered Sig/Marcelina Route Start Time Stop Time Status Last Admin Dose Admin Acetaminophen (Tylenol Tab) 650 mg Q4H PRN PO 05/24/16 15:30 06/23/16 15:29 05/25/16 06:07 650 MG Zolpidem Tartrate (Ambien Tab) 5 mg HSZ PRN PO 05/24/16 15:30 06/23/16 15:29 05/30/16 23:31 5 MG Aspirin (Ecotrin Tab) 81 mg HS PO 05/24/16 21:00 06/23/16 20:59 05/30/16 20:46 81 MG Cholecalciferol (Vitamin D Tab) 3,000 inter.unit DAILY PO 05/25/16 09:00 06/24/16 08:59 05/31/16 07:49 3,000 INTER.UNIT Cyanocobalamin (Vitamin B-12 Tab) 1,000 mcg DAILY PO 05/25/16 09:00 06/24/16 08:59 05/31/16 07:49 1,000 MCG Furosemide (Lasix tab) 40 mg DAILY PO 05/25/16 09:00 06/24/16 08:59 05/31/16 07:49 40 MG Labetalol HCl (Normodyne Tab) 600 mg QPM PO 05/24/16 21:00 06/23/16 20:59 05/30/16 20:47 600 MG Labetalol HCl (Normodyne Tab) 800 mg QAM PO 05/25/16 09:00 06/24/16 08:59 05/31/16 07:50 800 MG Levothyroxine Sodium (Synthroid Tab) 75 mcg DAILYBB PO 05/25/16 06:00 06/24/16 05:59 05/31/16 05:26 75 MCG Levothyroxine Sodium (Synthroid Tab) 200 mcg DAILYBB PO 05/25/16 06:00 06/24/16 05:59 05/31/16 05:26 200 MCG Losartan Potassium (coZAAR TAB) 50 mg DAILY PO 05/25/16 09:00 06/24/16 08:59 05/31/16 07:49 50 MG Paroxetine HCl (pAXil TAB) 40 mg QPM PO 05/24/16 21:00 06/23/16 20:59 05/30/16 20:47 40 MG Potassium Chloride (Klor-Con M10) 20 meq DAILY PO 05/25/16 09:00 06/24/16 08:59 05/31/16 07:50 20 MEQ Simvastatin (Zocor Tab) 40 mg QPM PO 05/24/16 21:00 06/23/16 20:59 05/30/16 20:47 40 MG Pantoprazole Sodium (Protonix Tab) 40 mg QAM PO 05/25/16 09:00 06/24/16 08:59 05/31/16 07:49 40 MG Ondansetron HCl 4 mg 4 mg Q6H PRN IV 05/24/16 15:30 06/23/16 15:29 Acetaminophen (Ofirmev Iv) 100 ml @ 400 mls/hr Q8H PRN IV 05/24/16 15:30 06/23/16 15:29 Lorazepam (Ativan Inj) 0.5 mg Q4H PRN IV 05/24/16 15:30 06/23/16 15:29 05/27/16 13:00 0.5 MG Lorazepam (Ativan Inj) 1 mg Q4H PRN IV 05/24/16 15:30 06/23/16 15:29 Morphine Sulfate (MoRPHine SULFATE INJ) 2 mg Q2H PRN IV 05/24/16 15:30 06/07/16 15:29 Morphine Sulfate 4 mg 4 mg Q2H PRN IV 05/24/16 15:30 06/07/16 15:29 Heparin Sodium/ Dextrose (Heparin 25,000 Unit/500ml D5W) 500 ml @ 27 mls/hr [id number] PRN IV 05/24/16 16:00 06/23/16 15:59 05/31/16 07:22 27 MLS/HR Glucose (Glucose 40% Gel) 15-30 GRAMS 15 GRAMS... UD PRN PO 05/24/16 16:15 06/23/16 16:14 Glucose (Glucose Chew Tab) 4-8 Tablets 4 Tabl... UD PRN PO 05/24/16 16:15 06/23/16 16:14 Dextrose (Dextrose 50% 50ML Syringe) 25-50ML OF 50% DW IV FOR... UD PRN IV 05/24/16 16:15 06/23/16 16:14 Glucagon (Glucagon Inj) 1 mg UD PRN SQ 05/24/16 16:15 06/23/16 16:14 Ipratropium [place] (Atrovent 0.02% 0.5MG/2.5ML Neb) 0.5 mg Q6R INH 05/24/16 21:00 06/23/16 20:59 05/31/16 07:19 0.5 MG Levalbuterol (Xopenex 1.25MG/ 0.5ML Neb) 1.25 mg Q6R INH 05/24/16 21:00 06/23/16 20:59 05/31/16 07:20 1.25 MG Ipratropium [place] (Atrovent 0.02% 0.5MG/2.5ML Neb) 0.5 mg Q2R PRN INH 05/24/16 19:15 06/23/16 19:14 Levalbuterol 1.25 mg 1.25 mg Q2R PRN INH 05/24/16 19:15 06/23/16 19:14 Lorazepam 0.5 mg/ Syringe 1 ml @ 1 mls/min Q4H PRN IV 05/24/16 19:15 06/23/16 19:14 Lorazepam/Syringe (Ativan Inj/ Syringe) 1 ml @ 1 mls/min Q4H PRN IV 05/24/16 19:15 06/23/16 19:14 Budesonide/ Formoterol Fumarate (Symbicort 160/ 4.5 Inh) 2 puffs BID INH 05/25/16 21:00 06/24/16 20:59 05/31/16 07:48 2 PUFFS Hydralazine HCl (HydrALAZINE INJ) 10 mg Q8 PRN IV. 05/25/16 15:00 06/24/16 14:59 Insulin Human NPH (novoLIN-N NPH) 75 units QPM SQ 05/26/16 21:00 06/25/16 20:59 05/30/16 20:56 75 UNITS Insulin Human NPH (novoLIN-N NPH) 125 units QAM SQ 05/27/16 09:00 06/26/16 08:59 05/31/16 09:36 125 UNITS Insulin Aspart (novoLOG ASPART) SLIDING SCALE G... ACHS SC 05/26/16 16:15 06/25/16 16:14 05/27/16 21:18 1 UNITS Warfarin Sodium 7.5 mg 7.5 mg DAILY@16 PO 05/30/16 16:00 06/29/16 15:59 05/30/16 15:40 7.5 MG Methylprednisolone Sodium Succinate 60 mg/Syringe 0.96 ml @ 1.5 mls/min Q8@0600,1400,2200 IV 05/31/16 22:00 06/30/16 21:59 Methylprednisolone Sodium Succinate/ Syringe (Solu-Medrol IV/ Syringe) 2 ml @ 1.5 mls/min TODAY@1230 IV 05/31/16 12:30 05/31/16 13:00 Objective Vital Signs Date Time Temp Pulse Resp B/P Pulse Ox O2 Delivery O2 Flow Rate FiO2 05/31/16 10:15 71 128/71 05/31/16 08:00 Nasal Cannula 2.0 05/31/16 07:40 36.4 70 22 163/79 95 Nasal Cannula 2.0 05/31/16 07:20 69 16 96 Nasal Cannula 2.0 05/31/16 01:31 71 16 94 Nasal Cannula 2.0 05/31/16 00:00 Nasal Cannula 05/30/16 19:06 67 16 93 Nasal Cannula 1.0 05/30/16 16:10 Nasal Cannula 2.0 05/30/16 15:58 36.5 67 17 149/77 93 Nasal Cannula 1.0 05/30/16 14:15 64 16 95 Nasal Cannula 1.0 Physical Exam General Appearance: + obese Eyes: normal inspection ENT: normal ENT inspection, hearing grossly normal Neck: supple, no JVD, no carotid bruits Respiratory/Chest: + decreased breath sounds, + rhonchi, + wheezing Cardiovascular: regular rate, rhythm, no edema, no gallop, no JVD, no murmur Abdomen: normal bowel sounds, non tender, soft, no organomegaly Extremities: normal range of motion, non-tender, normal inspection, no pedal edema Neurologic/Psychiatric: no motor/sensory deficits Skin: normal color Laboratory Results Last 24 Hours Test 05/30/16 15:56 05/30/16 18:20 05/30/16 20:42 05/31/16 05:45 Bedside Glucose 92 mg/dl 115 mg/dl Activated Partial Thromboplast Time 66.4 SECONDS 68.5 SECONDS Partial Thromboplastin Ratio 2.6 2.6 Test 05/31/16 08:05 05/31/16 08:15 05/31/16 11:40 Bedside Glucose 78 mg/dl 181 mg/dl Prothrombin Time 20.1 SECONDS Prothromb Time International Ratio 1.8 Assessment and Plan 70 yo female with history of obesity, severe knee osteoarthritis, presented with increased shortness of breath Bilateral segmental and subsegmental pulmonary emboli,acute on chronic hypoxemic respiratory failure, COPD - DVT in left superficial femoral vein - ECHO completed - no right heart strain -VQ scan dced by pul -Pulm on board- appreciate recs. - Continue heap drip and Coumadin,goal INR until > 2.0, Today INR=1.8, cont Coumadin to 7.5 mg for tonight and follow in am -continue Xopenex with Atrovent nebulizers to use every 6 hours while awake and every 2 hours when necessary -continue Symbicort -supplemental O2 prn, continue CPAP at night. SOB and coughing poss COPD exacerbation and needs to r/o pneumonia CXR breathing treatment IV steroid Hypertension, Chronic diastolic CHF, MR-accelerated HTN, now improved: - continue aspirin 81 - continue furosemide 40 mg daily - continue labetalol 800 mg by mouth every morning, 600 mg by mouth every afternoon, and 600 mg by mouth at bedtime - Continue losartan 50 mg by mouth daily, potassium chloride 20 mg by mouth daily and mag oxide 250 mg by mouth daily. Diabetes mellitus type II- -continue Humulin N 145 units subcutaneous every morning and 105 units subcutaneous every afternoon - Accu-Cheks before meals and at bedtime with NovoLog coverage. GERD- - Cont PPI, Protonix 40 mg by mouth every morning. Hypothyroidism- -continue levothyroxine sodium 275 g by mouth every morning. Depression- -continue Paxil 40 mg by mouth every afternoon. Hypercholesterolemia- -continue simvastatin 40 mg by mouth every afternoon. Nutraceuticals- -continue calcium, vitamin D, vitamin B-12, and fish oil as outpatient. Anxiety: increased today due to news of in ED with new stroke, PRN Ativan Discharge planning: Pt will need CM assistance to help determine need for home health and/or services. DVT ppx: teds, heparin and Coumadin CODE STATUS: FULL CODE Disposition: From home, discharge once INR reaches 2.0 with Coumadin clinic f/u. Continued [facility] stay due to: multiple IV medications needed, other (SOB, INR still not therapeutic) Discharge planning: home
--- NOTE | 2016-05-31 13:23 | DIAGNOSTIC IMAGING REPORT ---
TWO VIEW CHEST CLINICAL HISTORY: Cough and dyspnea. FINDINGS: PA and lateral chest radiographs are compared to study dated 05/24/2016. The examination is degraded by large body habitus. The heart is enlarged and there is atherosclerotic calcification of the thoracic aorta. There is mild pulmonary vascular congestion. This has improved from 05/24/2016. Small pleural effusions are seen on the lateral view. There is no pneumothorax. The skeletal structures are osteopenic. Degenerative change is noted in the thoracic spine. IMPRESSION: 1. Cardiomegaly with evidence of congestive failure. This has improved from 05/24/2016. 2. Small pleural effusions. Electronically signed by: Jayce Patterson M.D. 05/31/2016 1:21 PM
[2016-05-31] MEDS: WARFARIN SOD 7.5 MG TAB PO SCH (15:39)
[2016-05-31] MEDS: METHYLPREDNISOLONE IV 60 MG in SYRINGE 0 ML IV SCH (20:38)
[2016-05-31] MEDS: SIMVASTATIN 40 MG TAB PO SCH (20:39)
[2016-05-31] MEDS: ASPIRIN 81 MG ECTAB PO SCH (20:40)
[2016-05-31] MEDS: PAROXETINE 20 MG TAB PO SCH (20:40)
[2016-06-01] VITALS (11 sets, daily range): BP systolic 161–206; BP diastolic 68–80; PULSE 80–104; TEMP 36.7–36.9; O2SAT 91–96; BMI 55.0
[2016-06-01] MEDS: HydrALAZINE HCL 20 MG/ML VIAL IV. PRN ×2 (01:17→15:47)
[2016-06-01] MEDS: ZOLPIDEM TARTRATE 5 MG TAB PO PRN ×2 (01:17→22:06)
[2016-06-01] MEDS ORDERED: COUGH DROP (SUGAR FREE) LOZ 24 LOZ/1 BOX PO PRN (01:30)
[2016-06-01] MEDS: IPRATROPIUM BROMIDE NEB SOLN 0.02% 2.5 ML VIAL INH SCH ×4 (01:44→19:38)
[2016-06-01] MEDS: LEVALBUTEROL 1.25MG/0.5ML NEB INH SCH ×4 (01:44→19:38)
[2016-06-01] MEDS: LORAZEPAM INJ 1 MG in SYRINGE 0.5 ML IV PRN ×2 (01:49→15:46)
[2016-06-01] MEDS: MoRPHine SULFATE 4 MG/ML 1 ML CARP\\VIAL IV PRN ×2 (01:54→16:39)
[2016-06-01] MEDS: METHYLPREDNISOLONE IV 60 MG in SYRINGE 0 ML IV SCH ×3 (06:08→22:04)
[2016-06-01] MEDS: LEVOTHYROXINE 75 MCG TAB PO SCH (06:09)
[2016-06-01] MEDS: LEVOTHYROXINE 200 MCG TAB PO SCH (06:09)
[2016-06-01 06:28] LABS: INR 2.3 (0.9-1.1); PROTHROMBIN TIME (PATIENT) 25.6 SECONDS (9.0-12.0)
[2016-06-01] MEDS: CYANOCOBALAMIN 500 MCG TAB (VIT B-12) PO SCH (08:00)
[2016-06-01] MEDS: LABETALOL HCL 200 MG TAB PO SCH ×2 (08:02→20:58)
[2016-06-01] MEDS: LOSARTAN POTASSIUM 50 MG TAB PO SCH (08:02)
[2016-06-01] MEDS: CHOLECALCIFEROL 1000 INTER.UNIT TAB PO SCH (08:02)
[2016-06-01] MEDS: PANTOprazole SOD 40 MG TAB PO SCH (08:02)
[2016-06-01] MEDS: POTASSIUM CHLORIDE 10 MEQ TABCR PO SCH (08:03)
[2016-06-01] MEDS: FUROSEMIDE 40 MG TAB PO SCH (08:03)
[2016-06-01] MEDS: BUDESONIDE/FORMOTEROL FUMARATE 160/4.5 60 PUFFS/INHALER INH SCH ×2 (08:03→21:02)
[2016-06-01] MEDS: INSULIN HUMAN NPH SQ SCH ×2 (08:16→21:01)
[2016-06-01] MEDS: INSULIN ASPART 100 UNITS/ML 3 ML PEN SC SCH ×4 (08:39→21:00)
--- NOTE | 2016-06-01 12:43 | Progress Note ---
Subjective Date of Service: Jun 01, 2016. Subjective Pt evaluation today including: conversation w/ patient Pain: chest pain w coughing PO Intake: well seen and examine awake and alert afebrile, still has repetitive cough and wheezing and exertion SOB, no fever or chill, no Nor V, no abd pain INR is therapeutic Problem List Medical Problems: (1) Bilateral lower leg cellulitis Status: Acute (2) Dyspnea Status: Acute (3) Fluid overload Status: Acute (4) Left leg cellulitis Status: Acute (5) Lump in throat Status: Acute (6) Morbid obesity Status: Acute (7) Shortness of breath Status: Acute (8) Shortness of breath Status: Acute Review of Systems Constitutional: No chills, No fatigue, No fever, No problem reported, No see HPI, No sweats, No weakness, No weight loss Eyes: No diplopia, No discharge, No eye pain, No problem reported, No redness, No see HPI, No worsening of vision ENT: No dental problems, No hearing loss, No nasal symptoms, No problem reported, No see HPI, No sore throat, No tinnitus, No trouble swallowing, No unusual epistaxis Respiratory: + cough, + shortness of breath, + wheezing Cardiac: + chest pain (w coughing) Abdomen: No GI bleeding, No constipation, No diarrhea, No nausea, No pain, No problem reported, No see HPI, No vomiting Musculoskeletal: No calf pain, No joint pain, No muscle pain, No problem reported, No see HPI, No swelling Psychiatric: No anhedonism, No anxiety, No depression symptoms, No insomnia, No problem reported, No see HPI, No substance abuse Medications Current Inpatient Medications Medications (Trade) Dose Ordered Sig/Marcelina Route Start Time Stop Time Status Last Admin Dose Admin Acetaminophen (Tylenol Tab) 650 mg Q4H PRN PO 05/24/16 15:30 06/23/16 15:29 05/25/16 06:07 650 MG Zolpidem Tartrate (Ambien Tab) 5 mg HSZ PRN PO 05/24/16 15:30 06/23/16 15:29 06/01/16 01:17 5 MG Aspirin (Ecotrin Tab) 81 mg HS PO 05/24/16 21:00 06/23/16 20:59 05/31/16 20:40 81 MG Cholecalciferol (Vitamin D Tab) 3,000 inter.unit DAILY PO 05/25/16 09:00 06/24/16 08:59 06/01/16 08:02 3,000 INTER.UNIT Cyanocobalamin (Vitamin B-12 Tab) 1,000 mcg DAILY PO 05/25/16 09:00 06/24/16 08:59 06/01/16 08:00 1,000 MCG Furosemide (Lasix tab) 40 mg DAILY PO 05/25/16 09:00 06/24/16 08:59 06/01/16 08:03 40 MG Labetalol HCl (Normodyne Tab) 600 mg QPM PO 05/24/16 21:00 06/23/16 20:59 05/31/16 20:40 600 MG Labetalol HCl (Normodyne Tab) 800 mg QAM PO 05/25/16 09:00 06/24/16 08:59 06/01/16 08:02 800 MG Levothyroxine Sodium (Synthroid Tab) 75 mcg DAILYBB PO 05/25/16 06:00 06/24/16 05:59 06/01/16 06:09 75 MCG Levothyroxine Sodium (Synthroid Tab) 200 mcg DAILYBB PO 05/25/16 06:00 06/24/16 05:59 06/01/16 06:09 200 MCG Losartan Potassium (coZAAR TAB) 50 mg DAILY PO 05/25/16 09:00 06/24/16 08:59 06/01/16 08:02 50 MG Paroxetine HCl (pAXil TAB) 40 mg QPM PO 05/24/16 21:00 06/23/16 20:59 05/31/16 20:40 40 MG Potassium Chloride (Klor-Con M10) 20 meq DAILY PO 05/25/16 09:00 06/24/16 08:59 06/01/16 08:03 20 MEQ Simvastatin (Zocor Tab) 40 mg QPM PO 05/24/16 21:00 06/23/16 20:59 05/31/16 20:39 40 MG Pantoprazole Sodium (Protonix Tab) 40 mg QAM PO 05/25/16 09:00 06/24/16 08:59 06/01/16 08:02 40 MG Ondansetron HCl 4 mg 4 mg Q6H PRN IV 05/24/16 15:30 06/23/16 15:29 Acetaminophen (Ofirmev Iv) 100 ml @ 400 mls/hr Q8H PRN IV 05/24/16 15:30 06/23/16 15:29 Lorazepam (Ativan Inj) 0.5 mg Q4H PRN IV 05/24/16 15:30 06/23/16 15:29 05/27/16 13:00 0.5 MG Lorazepam (Ativan Inj) 1 mg Q4H PRN IV 05/24/16 15:30 06/23/16 15:29 Morphine Sulfate (MoRPHine SULFATE INJ) 2 mg Q2H PRN IV 05/24/16 15:30 06/07/16 15:29 Morphine Sulfate (MoRPHine SULFATE INJ) 4 mg Q2H PRN IV 05/24/16 15:30 06/07/16 15:29 06/01/16 01:54 4 MG Glucose (Glucose 40% Gel) 15-30 GRAMS 15 GRAMS... UD PRN PO 05/24/16 16:15 06/23/16 16:14 Glucose (Glucose Chew Tab) 4-8 Tablets 4 Tabl... UD PRN PO 05/24/16 16:15 06/23/16 16:14 Dextrose (Dextrose 50% 50ML Syringe) 25-50ML OF 50% DW IV FOR... UD PRN IV 05/24/16 16:15 06/23/16 16:14 Glucagon (Glucagon Inj) 1 mg UD PRN SQ 05/24/16 16:15 06/23/16 16:14 Ipratropium [place] (Atrovent 0.02% 0.5MG/2.5ML Neb) 0.5 mg Q6R INH 05/24/16 21:00 06/23/16 20:59 06/01/16 07:14 0.5 MG Levalbuterol (Xopenex 1.25MG/ 0.5ML Neb) 1.25 mg Q6R INH 05/24/16 21:00 06/23/16 20:59 06/01/16 07:14 1.25 MG Ipratropium [place] (Atrovent 0.02% 0.5MG/2.5ML Neb) 0.5 mg Q2R PRN INH 05/24/16 19:15 06/23/16 19:14 Levalbuterol 1.25 mg 1.25 mg Q2R PRN INH 05/24/16 19:15 06/23/16 19:14 Lorazepam 0.5 mg/ Syringe 1 ml @ 1 mls/min Q4H PRN IV 05/24/16 19:15 06/23/16 19:14 Lorazepam/Syringe (Ativan Inj/ Syringe) 1 ml @ 1 mls/min Q4H PRN IV 05/24/16 19:15 06/23/16 19:14 06/01/16 01:49 1 MLS/MIN Budesonide/ Formoterol Fumarate (Symbicort 160/ 4.5 Inh) 2 puffs BID INH 05/25/16 21:00 06/24/16 20:59 06/01/16 08:03 2 PUFFS Hydralazine HCl (HydrALAZINE INJ) 10 mg Q8 PRN IV. 05/25/16 15:00 06/24/16 14:59 06/01/16 01:17 10 MG Insulin Human NPH (novoLIN-N NPH) 75 units QPM SQ 05/26/16 21:00 06/25/16 20:59 05/31/16 20:37 75 UNITS Insulin Human NPH (novoLIN-N NPH) 125 units QAM SQ 05/27/16 09:00 06/26/16 08:59 06/01/16 08:16 125 UNITS Insulin Aspart (novoLOG ASPART) SLIDING SCALE G... ACHS SC 05/26/16 16:15 06/25/16 16:14 06/01/16 08:39 3 UNITS Warfarin Sodium 7.5 mg 7.5 mg DAILY@16 PO 05/30/16 16:00 06/29/16 15:59 05/31/16 15:39 7.5 MG Methylprednisolone Sodium Succinate/ Syringe (Solu-Medrol IV/ Syringe) 0.96 ml @ 1.5 mls/min Q8@0600,1400,2200 IV 05/31/16 22:00 06/30/16 21:59 06/01/16 06:08 1.5 MLS/MIN Menthol (Nice [place]) 1 robert PRN PRN PO 06/01/16 01:30 07/01/16 01:29 Objective Vital Signs Date Time Temp Pulse Resp B/P Pulse Ox O2 Delivery O2 Flow Rate FiO2 06/01/16 11:27 36.7 85 22 169/73 91 Nasal Cannula 2.0 06/01/16 08:35 36.8 88 18 163/75 93 Nasal Cannula 2.0 06/01/16 08:00 94 Nasal Cannula 2.0 06/01/16 07:14 92 20 96 Nasal Cannula 2.0 06/01/16 06:13 90 21 161/74 96 Nasal Cannula 3.0 06/01/16 01:45 99 16 94 Nasal Cannula 2.0 06/01/16 00:00 36.7 89 20 206/80 92 2.0 05/31/16 20:00 94 Nasal Cannula 2.0 05/31/16 19:15 78 16 94 Nasal Cannula 2.0 05/31/16 16:07 Nasal Cannula 2.0 05/31/16 15:09 36.9 73 18 179/80 94 Nasal Cannula 2.0 05/31/16 14:42 72 16 95 Nasal Cannula 2.0 Physical Exam General Appearance: no apparent distress, + obese Eyes: normal inspection ENT: normal ENT inspection Neck: supple, no JVD, no carotid bruits Respiratory/Chest: chest non-tender, no accessory muscle use, + decreased breath sounds, + rhonchi, + wheezing Cardiovascular: regular rate, rhythm, no edema, no gallop, no JVD, no murmur Abdomen: normal bowel sounds, non tender, soft, no organomegaly Extremities: normal range of motion, non-tender, normal inspection Neurologic/Psychiatric: alert, normal mood/affect, oriented x 3 Laboratory Results Last 24 Hours Test 05/31/16 16:50 05/31/16 20:09 06/01/16 05:44 06/01/16 07:54 Bedside Glucose 195 mg/dl 382 mg/dl 262 mg/dl Prothrombin Time 25.6 SECONDS Prothromb Time International Ratio 2.3 Activated Partial Thromboplast Time 79.1 SECONDS Partial Thromboplastin Ratio 3.0 Test 06/01/16 11:25 Bedside Glucose 314 mg/dl Assessment and Plan 70 yo female with history of obesity, severe knee osteoarthritis, presented with increased shortness of breath Bilateral segmental and subsegmental pulmonary emboli,acute on chronic hypoxemic respiratory failure, COPD - DC hep drip as INR therapeutic - DVT in left superficial femoral vein - ECHO completed - no right heart strain -VQ scan dced by pul -Pulm on board- appreciate recs. -once she goes back to home needs to have close follow up on INR SOB and coughing poss COPD exacerbation and no pneumonia on CXR likely acute bronchitis -CXR reviewed -Influenza tests -No Abx unless develops fever or repeat CXR shows infiltration -breathing treatment -Cough medication -IV steroid continue Xopenex with Atrovent nebulizers to use every 6 hours while awake and every 2 hours when necessary -continue Symbicort -supplemental O2 prn, continue CPAP at night. 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 Diabetes mellitus type II- -continue Humulin N 145 units subcutaneous every morning and 105 units subcutaneous every afternoon - Accu-Cheks before meals and at bedtime with NovoLog coverage. GERD- - Cont PPI, Protonix 40 mg by mouth every morning. Hypothyroidism- -continue levothyroxine sodium 275 g by mouth every morning. Depression- -continue Paxil 40 mg by mouth every afternoon. Hypercholesterolemia- -continue simvastatin 40 mg by mouth every afternoon. Nutraceuticals- -continue calcium, vitamin D, vitamin B-12, and fish oil as outpatient. Anxiety: increased today due to news of in ED with new stroke, PRN Ativan Discharge planning: Pt will need CM assistance to help determine need for home health and/or services. DVT: Coumadin CODE STATUS: FULL CODE Disposition: SNF Dc once her breathing and resp status is better All Dw pat Continued [facility] stay due to: multiple IV medications needed, other (SOB, INR still not therapeutic) Discharge planning: home
[2016-06-01] MEDS: GUAIFENESIN 600 MG TABCR PO SCH ×2 (13:31→20:58)
[2016-06-01] MEDS ORDERED: WARFARIN SOD 6 MG TAB PO SCH (16:00)
[2016-06-01] MEDS: LEVALBUTEROL 1.25MG/0.5ML NEB INH PRN (17:09)
[2016-06-01] MEDS: IPRATROPIUM BROMIDE NEB SOLN 0.02% 2.5 ML VIAL INH PRN (17:09)
[2016-06-01 17:40] LABS: ARTERIAL BLD GAS O2 SATURATION 97.1 % (90-95); ARTERIAL BLOOD GAS BASE EXCESS 2.7 mEq/L (-9-1.8); ARTERIAL BLOOD GAS HCO3 28 mmol/L (19-24); ARTERIAL BLOOD GAS PO2 92 mm/Hg (80-95); ARTERIAL BLOOD GAS pH 7.39 (7.35-7.45)
[2016-06-01 17:48] LABS: ALLEN TEST POS (POS); O2 ADMINISTRATION 3 L
[2016-06-01] MEDS: SIMVASTATIN 40 MG TAB PO SCH (20:58)
[2016-06-01] MEDS: ASPIRIN 81 MG ECTAB PO SCH (20:58)
[2016-06-01] MEDS: PAROXETINE 20 MG TAB PO SCH (20:58)
[2016-06-01] MEDS ORDERED: MoRPHine SULFATE 2 MG/ML CARP IV PRN (21:30)
[2016-06-01] MEDS: LEVOFLOXACIN 500 MG TAB PO SCH (22:04)
[2016-06-02] VITALS (10 sets, daily range): BP systolic 162–188; BP diastolic 71–95; PULSE 60–92; TEMP 36.7–36.9; O2SAT 90–96
[2016-06-02] MEDS: IPRATROPIUM BROMIDE NEB SOLN 0.02% 2.5 ML VIAL INH SCH ×6 (01:25→23:23)
[2016-06-02] MEDS: LEVALBUTEROL 1.25MG/0.5ML NEB INH SCH ×5 (01:25→23:23)
[2016-06-02] MEDS: HydrALAZINE HCL 20 MG/ML VIAL IV. PRN (02:03)
[2016-06-02] MEDS ORDERED: NURSING VERBAL MED ORDER ONE (03:45)
[2016-06-02] MEDS ORDERED: LORAZEPAM INJ 0.5 MG in SYRINGE 0.25 ML IV PRN (04:00)
[2016-06-02] MEDS ORDERED: LORAZEPAM INJ 1 MG in SYRINGE 0.5 ML IV PRN (04:00)
[2016-06-02] MEDS ORDERED: LORAZEPAM 2 MG/ML 1 ML VIAL IV PRN ×2 (04:00)
[2016-06-02 06:17] LABS: COMPLETE YES; IG% 0.4 %; LYMPH % 5.3 %; LYMPH ABS # 0.66 K/uL (1.2-3.4); MEAN CELL VOLUME 85.5 fL (80-100); MEAN CORPUSCULAR HEMOGLOBIN 27.4 pg (25-34); MEAN PLATELET VOLUME 10.9 fL (7.4-10.4); MONO % 7.7 %; NEUT % 86.6 %; PLATELET COUNT 300 K/uL (130-400); RED BLOOD COUNT 4.68 M/uL (4.2-5.4)
[2016-06-02] MEDS: METHYLPREDNISOLONE IV 60 MG in SYRINGE 0 ML IV SCH (06:20)
[2016-06-02] MEDS: LEVOTHYROXINE 75 MCG TAB PO SCH (06:21)
[2016-06-02] MEDS: LEVOTHYROXINE 200 MCG TAB PO SCH (06:21)
[2016-06-02 06:27] LABS: INR 3.3 (0.9-1.1); PROTHROMBIN TIME (PATIENT) 37.1 SECONDS (9.0-12.0)
[2016-06-02 06:43] LABS: BUN/CREATININE RATIO 23.6 (10-20); CALCIUM 9.2 mg/dl (8.5-10.1); CREATININE 1.4 mg/dl (0.60-1.20); POTASSIUM 4.4 mmol/L (3.5-5.1)
[2016-06-02] MEDS: BUDESONIDE/FORMOTEROL FUMARATE 160/4.5 60 PUFFS/INHALER INH SCH ×2 (07:44→20:34)
[2016-06-02] MEDS: PANTOprazole SOD 40 MG TAB PO SCH (07:44)
[2016-06-02] MEDS: OSELTAMIVIR PHOSPHATE 75 MG CAP PO SCH ×2 (07:44→20:35)
[2016-06-02] MEDS: GUAIFENESIN 600 MG TABCR PO SCH ×2 (07:45→20:37)
[2016-06-02] MEDS: CHOLECALCIFEROL 1000 INTER.UNIT TAB PO SCH (07:45)
[2016-06-02] MEDS: CYANOCOBALAMIN 500 MCG TAB (VIT B-12) PO SCH (07:45)
[2016-06-02] MEDS: LABETALOL HCL 200 MG TAB PO SCH ×2 (07:45→20:36)
[2016-06-02] MEDS: LOSARTAN POTASSIUM 50 MG TAB PO SCH (07:46)
[2016-06-02] MEDS: FUROSEMIDE 40 MG TAB PO SCH (07:46)
[2016-06-02] MEDS: POTASSIUM CHLORIDE 10 MEQ TABCR PO SCH (07:46)
[2016-06-02] MEDS: INSULIN ASPART 100 UNITS/ML 3 ML PEN SC SCH ×4 (07:56→20:48)
[2016-06-02] MEDS: INSULIN HUMAN NPH SQ SCH ×2 (09:48→20:49)
[2016-06-02] MEDS ORDERED: ALBUT/IPRATROP 3MG/0.5MG NEB 3 ML VIAL INH SCH (12:00)
[2016-06-02] MEDS: LEVOFLOXACIN 500 MG TAB PO SCH (12:31)
[2016-06-02] MEDS: METHYLPREDNISOLONE IV 80 MG in SYRINGE 0 ML IV SCH ×2 (12:38→20:34)
[2016-06-02] MEDS: IPRATROPIUM BROMIDE NEB SOLN 0.02% 2.5 ML VIAL INH PRN (14:58)
[2016-06-02] MEDS ORDERED: ALPRAZOLAM 0.25 MG TAB PO PRN (15:30)
--- NOTE | 2016-06-02 15:41 | Progress Note ---
Subjective Date of Service: Jun 02, 2016. Subjective Pt evaluation today including: conversation w/ patient Pain: none seen and examined awake and alert , afebrile, but still mildly SOB but much better than last night when she had an attack of SOB, no N or V, still has dry cough and wheezing Problem List Medical Problems: (1) Bilateral lower leg cellulitis Status: Acute (2) Dyspnea Status: Acute (3) Fluid overload Status: Acute (4) Left leg cellulitis Status: Acute (5) Lump in throat Status: Acute (6) Morbid obesity Status: Acute (7) Shortness of breath Status: Acute (8) Shortness of breath Status: Acute Review of Systems Constitutional: No chills, No fatigue, No fever, No problem reported, No see HPI, No sweats, No weakness, No weight loss Eyes: No diplopia, No discharge, No eye pain, No problem reported, No redness, No see HPI, No worsening of vision ENT: No dental problems, No hearing loss, No nasal symptoms, No problem reported, No see HPI, No sore throat, No tinnitus, No trouble swallowing, No unusual epistaxis Respiratory: + cough, + shortness of breath, + wheezing Cardiac: No PND, No chest pain, No claudication, No edema, No orthopnea, No palpitations, No problem reported, No see HPI Abdomen: No GI bleeding, No constipation, No diarrhea, No nausea, No pain, No problem reported, No see HPI, No vomiting Musculoskeletal: No calf pain, No joint pain, No muscle pain, No problem reported, No see HPI, No swelling Female : No abnormal vaginal bleeding, No dysuria, No hematuria, No incontinence, No problem reported, No see HPI, No urinary frequency, No vaginal discharge Neurologic: No balance problems, No memory loss, No numbness/tingling, No paralysis, No problem reported, No see HPI, No vertigo, No weakness Psychiatric: No anhedonism, No anxiety, No depression symptoms, No insomnia, No problem reported, No see HPI, No substance abuse Objective Vital Signs Date Time Temp Pulse Resp B/P Pulse Ox O2 Delivery O2 Flow Rate FiO2 06/02/16 15:25 36.8 60 21 164/71 96 Nasal Cannula 2.5 06/02/16 14:58 87 20 96 Nasal Cannula 2.0 12/31/16 11:31 92 20 95 Nasal Cannula 2.0 06/02/16 08:00 Nasal Cannula 2.0 06/02/16 07:33 36.8 90 18 188/79 94 Nasal Cannula 2.0 06/02/16 07:24 87 20 96 Nasal Cannula 4.0 06/02/16 04:38 36.9 85 24 162/95 95 Nasal Cannula 06/02/16 01:25 84 20 94 Nasal Cannula 2.0 06/02/16 00:37 36.7 85 20 183/78 90 Room Air 06/02/16 00:00 CPAP 3.0 06/01/16 20:00 Nasal Cannula 3.0 06/01/16 19:38 84 20 95 Nasal Cannula 2.0 06/01/16 16:30 104 28 95 BiPAP/CPAP 3.0 Physical Exam General Appearance: no apparent distress, + obese Eyes: normal inspection, EOMI ENT: normal ENT inspection Neck: supple, no JVD, no carotid bruits Respiratory/Chest: chest non-tender, no respiratory distress, + decreased breath sounds, + rhonchi, + wheezing Cardiovascular: regular rate, rhythm, no edema, no gallop, no JVD, no murmur Abdomen: normal bowel sounds, non tender, soft, no organomegaly Extremities: normal range of motion, non-tender, normal inspection, no pedal edema Neurologic/Psychiatric: alert, normal mood/affect, oriented x 3 Laboratory Results Last 24 Hours Test 06/01/16 16:13 06/01/16 17:30 06/01/16 20:05 06/02/16 03:45 Bedside Glucose 261 mg/dl 270 mg/dl Arterial Blood pH 7.39 Arterial Blood Partial Pressure CO2 48 mmHg Arterial Blood Partial Pressure O2 92 mm/Hg Arterial Blood HCO3 28 mmol/L Arterial Blood Oxygen Saturation 97.1 % Arterial Blood Base Excess 2.7 mEq/L Arterial Blood Gas Delivery 3 L Moe Test POS Influenza Type A Antigen POS for Influ A Influenza Type B Antigen Neg for Influ B Test 06/02/16 05:43 06/02/16 07:43 06/02/16 11:26 White Blood Count 12.50 K/uL Red Blood Count 4.68 M/uL Hemoglobin 12.8 g/dL Hematocrit 40.0 % Mean Corpuscular Volume 85.5 fL Mean Corpuscular Hemoglobin 27.4 pg Mean Corpuscular Hemoglobin Concent 32.0 g/dl Platelet Count 300 K/uL Mean Platelet Volume 10.9 fL Neutrophils (%) (Auto) 86.6 % Lymphocytes (%) (Auto) 5.3 % Monocytes (%) (Auto) 7.7 % Eosinophils (%) (Auto) 0.0 % Basophils (%) (Auto) 0.0 % Neutrophils # (Auto) 10.83 K/uL Lymphocytes # (Auto) 0.66 K/uL Monocytes # (Auto) 0.96 K/uL Eosinophils # (Auto) 0.00 K/uL Basophils # (Auto) 0.00 K/uL RDW Standard Deviation 50.5 fL RDW Coefficient of Variation 16.1 % Immature Granulocyte % (Auto) 0.4 % Immature Granulocyte # (Auto) 0.05 K/uL Prothrombin Time 37.1 SECONDS Prothromb Time International Ratio 3.3 Sodium Level 141 mmol/L Potassium Level 4.4 mmol/L Chloride Level 104 mmol/L Carbon Dioxide Level 26 mmol/L Anion Gap 11.0 mmol/L Blood Urea Nitrogen 33 mg/dl Creatinine 1.40 mg/dl Est Creatinine Clear Calc Drug Dose 57.6 ml/min Estimated GFR () 44.3 Estimated GFR (Non- 38.2 BUN/Creatinine Ratio 23.6 Random Glucose 174 mg/dl Calcium Level 9.2 mg/dl Bedside Glucose 143 mg/dl 216 mg/dl Assessment and Plan 70 yo female with history of obesity, severe knee osteoarthritis, presented with increased shortness of breath Bilateral segmental and subsegmental pulmonary emboli,acute on chronic hypoxemic respiratory failure, COPD - hold warfarin today as INR supratherapeutic - DVT in left superficial femoral vein - ECHO completed - no right heart strain -VQ scan dced by pul SOB and coughing poss COPD exacerbation poss early pneumonia or acute bronchitis -some may be set by news the her has stroke and moved to nursing and Anxiety -CXR, repeat in am -Influenza tests neg -No Abx unless develops fever or repeat CXR shows infiltration -breathing treatment -Cough medication -IV steroid increase to 80 mg tid continue Xopenex with Atrovent nebulizers to use every 6 hours while awake and every 2 hours when necessary -continue Symbicort -supplemental O2 prn, continue CPAP at night. Avoid IV Ativan or high doses of Morphine, add low dose of Xanax as needed advised about compliance w CPAP all Dw her daughter last night in detail Hypertension, Chronic diastolic CHF, MR-accelerated HTN, now improved: -BP is elevated, add hydralazine as needed - continue aspirin 81 - continue furosemide 40 mg daily - continue labetalol 800 mg by mouth every morning, 600 mg by mouth every afternoon, and 600 mg by mouth at bedtime - Continue losartan 50 mg by mouth daily, potassium chloride 20 mg by mouth daily and mag oxide 250 mg by mouth daily. Diabetes mellitus type II- sugar is high poss sec to steroid insulin increased and improving -continue Humulin N 145 units subcutaneous every morning and 105 units subcutaneous every afternoon - Accu-Cheks before meals and at bedtime with NovoLog coverage. GERD- - Cont PPI, Protonix 40 mg by mouth every morning. Hypothyroidism- -continue levothyroxine sodium 275 g by mouth every morning. Depression- -continue Paxil 40 mg by mouth every afternoon. Hypercholesterolemia- -continue simvastatin 40 mg by mouth every afternoon. Nutraceuticals- -continue calcium, vitamin D, vitamin B-12, and fish oil as outpatient. Anxiety: increased today due to news of in ED with new stroke, PRN Ativan Discharge planning: Pt will need CM assistance to help determine need for home health and/or services. DVT: Coumadin CODE STATUS: FULL CODE Disposition: SNF Dc once her breathing and resp status is better All Dw pat Continued [facility] stay due to: multiple IV medications needed, other (SOB, INR still not therapeutic) Discharge planning: home
[2016-06-02] MEDS: SIMVASTATIN 40 MG TAB PO SCH (20:36)
[2016-06-02] MEDS: PAROXETINE 20 MG TAB PO SCH (20:37)
[2016-06-02] MEDS: ASPIRIN 81 MG ECTAB PO SCH (20:37)
[2016-06-02] MEDS: ZOLPIDEM TARTRATE 5 MG TAB PO PRN (21:36)
[2016-06-03] VITALS (12 sets, daily range): BP systolic 137–195; BP diastolic 68–83; PULSE 70–85; TEMP 36.5–36.7; O2SAT 93–97
[2016-06-03] MEDS ORDERED: LORAZEPAM INJ 1 MG in SYRINGE 0.5 ML IV PRN (00:30)
[2016-06-03] MEDS ORDERED: LORAZEPAM INJ 0.5 MG in SYRINGE 0.25 ML IV PRN (00:30)
[2016-06-03] MEDS: IPRATROPIUM BROMIDE NEB SOLN 0.02% 2.5 ML VIAL INH SCH ×6 (03:50→23:28)
[2016-06-03] MEDS: LEVALBUTEROL 1.25MG/0.5ML NEB INH SCH ×6 (03:50→23:28)
[2016-06-03] MEDS: METHYLPREDNISOLONE IV 80 MG in SYRINGE 0 ML IV SCH (04:52)
[2016-06-03] MEDS: LEVOTHYROXINE 200 MCG TAB PO SCH (06:04)
[2016-06-03] MEDS: LEVOTHYROXINE 75 MCG TAB PO SCH (06:05)
[2016-06-03 06:55] LABS: INR 3.1 (0.9-1.1); PROTHROMBIN TIME (PATIENT) 34.8 SECONDS (9.0-12.0)
[2016-06-03] MEDS: IPRATROPIUM BROMIDE NEB SOLN 0.02% 2.5 ML VIAL INH PRN ×2 (07:25→11:37)
[2016-06-03] MEDS: LABETALOL HCL 200 MG TAB PO SCH ×2 (08:39→21:58)
[2016-06-03] MEDS: GUAIFENESIN 600 MG TABCR PO SCH ×2 (08:39→21:04)
[2016-06-03] MEDS: CHOLECALCIFEROL 1000 INTER.UNIT TAB PO SCH (08:39)
[2016-06-03] MEDS: LOSARTAN POTASSIUM 50 MG TAB PO SCH (08:39)
[2016-06-03] MEDS: CYANOCOBALAMIN 500 MCG TAB (VIT B-12) PO SCH (08:39)
[2016-06-03] MEDS: OSELTAMIVIR PHOSPHATE 75 MG CAP PO SCH ×2 (08:40→21:04)
[2016-06-03] MEDS: PANTOprazole SOD 40 MG TAB PO SCH (08:40)
[2016-06-03] MEDS: BUDESONIDE/FORMOTEROL FUMARATE 160/4.5 60 PUFFS/INHALER INH SCH ×2 (08:40→21:02)
[2016-06-03] MEDS: POTASSIUM CHLORIDE 10 MEQ TABCR PO SCH (08:40)
[2016-06-03] MEDS: FUROSEMIDE 40 MG TAB PO SCH (08:40)
[2016-06-03] MEDS: INSULIN ASPART 100 UNITS/ML 3 ML PEN SC SCH ×4 (08:44→21:09)
[2016-06-03] MEDS: INSULIN HUMAN NPH SQ SCH ×2 (08:53→21:09)
--- NOTE | 2016-06-03 09:27 | DIAGNOSTIC IMAGING REPORT ---
TWO VIEW CHEST CLINICAL HISTORY: Cough. FINDINGS: PA and lateral chest radiographs are compared to study dated 05/31/2016. The examination is degraded by large body habitus. The heart is enlarged and there is atherosclerotic calcification of the thoracic aorta. There is mild pulmonary vascular congestion. This has modestly worsened from 05/31/2016. Small pleural effusions are seen on the lateral view. There is no pneumothorax. The skeletal structures are osteopenic. Degenerative change is noted in the thoracic spine. IMPRESSION: 1. Cardiomegaly with evidence of congestive failure. This has modestly worsened from 05/31/2016. 2. Small pleural effusions. Electronically signed by: Jayce Patterson M.D. 06/03/2016 9:25 AM
--- NOTE | 2016-06-03 10:54 | Hospitalist Progress Note ---
Hospitalist Progress Note Date of Service Jun 03, 2016. Subjective Pt evaluation today including: conversation w/ patient, physical exam, chart review, lab review, review of studies, review of inpatient medication list Voiding: no voiding problems Pt feels slightly better with breathing today. Now with +Flu A test and wheezing more yesterday, steroids increased yesterday. Having SOB and CHA, cannot fall asleep. Constitutional: No fever Respiratory: + cough, + dyspnea on exertion, + shortness of breath Cardiovascular: No chest pain Abdomen: No constipation, No diarrhea, No pain Psychiatric: + anxiety, + insomnia All Other Systems: Reviewed and Negative Objective Vital Signs Date Time Temp Pulse Resp B/P Pulse Ox O2 Delivery O2 Flow Rate FiO2 06/03/16 07:57 36.6 77 20 195/83 94 Nasal Cannula 3.0 162/74 06/03/16 07:26 70 20 97 Nasal Cannula 2.0 06/03/16 03:50 85 20 96 Nasal Cannula 2.0 06/03/16 00:52 82 20 173/72 94 CPAP 06/03/16 00:10 36.7 81 20 184/81 93 Nasal Cannula 2.0 06/03/16 00:00 Nasal Cannula 2.0 06/02/16 23:24 85 20 96 Nasal Cannula 2.0 06/02/16 20:00 Nasal Cannula 2.0 06/02/16 19:38 87 20 96 Nasal Cannula 2.0 06/02/16 16:15 Nasal Cannula 2.0 06/02/16 15:25 36.8 60 21 164/71 96 Nasal Cannula 2.5 06/02/16 14:58 87 20 96 Nasal Cannula 2.0 06/02/16 11:31 92 20 95 Nasal Cannula 2.0 Physical Exam General Appearance: + mild distress, + obese Eyes: normal inspection, sclerae normal ENT: hearing grossly normal Neck: trachea midline Respiratory/Chest: no accessory muscle use, + decreased breath sounds ( diminished at bases, +diffuse insp and exp wheezes, no rales or rhonchi) Cardiovascular: regular rate, rhythm, no gallop, no murmur, + pertinent finding (2+ pitting edema LEs to knees bilat) Abdomen: normal bowel sounds, non tender, soft (and morbidly obese) Extremities: non-tender, no calf tenderness Neurologic/Psychiatric: alert, oriented x 3 Skin: no rash Laboratory Results Last 24 Hours Test 06/02/16 11:26 06/02/16 16:22 06/02/16 20:11 06/03/16 06:16 Bedside Glucose 216 mg/dl 293 mg/dl 363 mg/dl Prothrombin Time 34.8 SECONDS Prothromb Time International Ratio 3.1 Test 06/03/16 08:08 Bedside Glucose 152 mg/dl Diagnostic Results CXR reviewed Assessment and Plan Pt is a 70 yo female with a h/o COPD, CHF, mitral valve regurg, diabetes mellitus type II, hypertension,osteoporosis, vitamin B12 deficiency, hypothyroidism, GERD, depression, hypokalemia, hyperlipidemia, obstructive sleep apnea, bladder dysfunction, here with bilateral PEs. She has several bilateral segmental and subsegmental PEs on CTA chest. There is indeed a chronic DVT in the left superficial femoral vein which is a deep vein despite its nomenclature. This is most likely from her morbid obesity and relative sedentary lifestyle due to severe OA of the knees. Bilateral segmental and subsegmental pulmonary emboli,acute on chronic hypoxemic respiratory failure, COPD - restart warfarin today at lower dose of 5mg -check daily INR - DVT in left superficial femoral vein - ECHO completed - no right heart strain -VQ scan dced by pul-was looking for CTED but pt couldn't tolerate lying flat SOB and coughing poss COPD exacerbation--> +Influenza A respiratory illness, Also with CHF on CXR--> slightly improved -No Abx unless develops fever or repeat CXR shows infiltration -started Tamiflu and will give 5 day course -IV lasix 40mg x 1 now -breathing treatments -Cough medication -IV steroid decrease to 60 mg tid continue Xopenex with Atrovent nebulizers to use every 6 hours while awake and every 2 hours when necessary -continue Symbicort -supplemental O2 prn, continue CPAP at night. -Pulm following Avoid IV Ativan or high doses of Morphine, add low dose of Xanax as needed advised about compliance w CPAP Hypertension, Chronic diastolic CHF, MR-accelerated HTN, now improved: -BP is elevated, add hydralazine as needed, she was missing her afternoon dose of labetalol--. added back on 06/03/16 - continue aspirin 81 - continue furosemide 40 mg daily - continue labetalol 800 mg by mouth every morning, 600 mg by mouth every afternoon, and 600 mg by mouth at bedtime - Continue losartan 50 mg by mouth daily, potassium chloride 20 mg by mouth daily and mag oxide 250 mg by mouth daily. Diabetes mellitus type II- sugar is high poss sec to steroid insulin increased and improving -continue Humulin N 145 units subcutaneous every morning and 105 units subcutaneous every afternoon - Accu-Cheks before meals and at bedtime with NovoLog coverage. GERD- - Cont PPI, Protonix 40 mg by mouth every morning. Hypothyroidism- -continue levothyroxine sodium 275 g by mouth every morning. Depression- -continue Paxil 40 mg by mouth every afternoon. Hypercholesterolemia- -continue simvastatin 40 mg by mouth every afternoon. Nutraceuticals- -continue calcium, vitamin D, vitamin B-12, and fish oil as outpatient. Anxiety: PRN Ativan Discharge planning: Pt will need CM assistance to help determine need for home health and/or services. DVT: Coumadin CODE STATUS: FULL CODE Disposition: SNF
[2016-06-03] MEDS: LEVOFLOXACIN 500 MG TAB PO SCH (11:27)
[2016-06-03] MEDS ORDERED: FUROSEMIDE INJ 40 MG in SYRINGE 0 ML IV ONE (12:15)
[2016-06-03 13:44] LABS: URINE APPEARANCE CLEAR (CLEAR); URINE BILIRUBIN NEG (NEG); URINE COLOR YELLOW; URINE NITRITE NEG (NEG); URINE SPECIFIC GRAVITY 1.007 (1.000-1.030); UROBILINOGEN NEG (NEG)
[2016-06-03 13:45] LABS: MANUAL MICROSCOPIC REQUIRED? NO; REVIEW REQ? YES
[2016-06-03 13:57] LABS: ZZUR CULT IF INDIC CLEAN CATCH NO
[2016-06-03] MEDS: METHYLPREDNISOLONE IV 60 MG in SYRINGE 0 ML IV SCH ×2 (14:20→21:10)
[2016-06-03] MEDS: LABETALOL HCL 300 MG TAB PO SCH (14:21)
[2016-06-03] MEDS: WARFARIN SOD 5 MG TAB PO SCH (16:10)
[2016-06-03] MEDS: SIMVASTATIN 40 MG TAB PO SCH (21:03)
[2016-06-03] MEDS: ASPIRIN 81 MG ECTAB PO SCH (21:03)
[2016-06-03] MEDS: PAROXETINE 20 MG TAB PO SCH (21:03)
[2016-06-03] MEDS: ZOLPIDEM TARTRATE 5 MG TAB PO PRN (21:57)
[2016-06-04] VITALS (11 sets, daily range): BP systolic 152–186; BP diastolic 68–82; PULSE 71–78; TEMP 36.6–36.9; O2SAT 92–96
[2016-06-04] MEDS: IPRATROPIUM BROMIDE NEB SOLN 0.02% 2.5 ML VIAL INH SCH ×6 (02:59→23:23)
[2016-06-04] MEDS: LEVALBUTEROL 1.25MG/0.5ML NEB INH SCH ×6 (02:59→23:23)
[2016-06-04 06:12] LABS: COMPLETE YES; IG% 0.3 %; LYMPH ABS # 0.81 K/uL (1.2-3.4); MEAN CELL VOLUME 86.2 fL (80-100); MEAN CORPUSCULAR HEMOGLOBIN 27.2 pg (25-34); MEAN CORPUSCULAR HGB CONC 31.5 g/dl (32-36); MEAN PLATELET VOLUME 10.8 fL (7.4-10.4); MONO % 8.8 %; NEUT % 81.9 %; PLATELET COUNT 282 K/uL (130-400); RED BLOOD COUNT 4.64 M/uL (4.2-5.4); WHITE BLOOD COUNT 9.01 K/uL (4.8-10.8)
[2016-06-04 06:20] LABS: INR 2.7 (0.9-1.1); PROTHROMBIN TIME (PATIENT) 29.6 SECONDS (9.0-12.0)
[2016-06-04] MEDS: METHYLPREDNISOLONE IV 60 MG in SYRINGE 0 ML IV SCH ×3 (06:32→20:54)
[2016-06-04] MEDS: LEVOTHYROXINE 200 MCG TAB PO SCH (06:32)
[2016-06-04] MEDS: LEVOTHYROXINE 75 MCG TAB PO SCH (06:32)
[2016-06-04 06:45] LABS: BUN/CREATININE RATIO 28.5 (10-20); CREATININE 1.5 mg/dl (0.60-1.20); MAGNESIUM 2.5 mg/dl (1.8-2.4); POTASSIUM 4.3 mmol/L (3.5-5.1)
[2016-06-04] MEDS: LOSARTAN POTASSIUM 50 MG TAB PO SCH (08:07)
[2016-06-04] MEDS: POTASSIUM CHLORIDE 10 MEQ TABCR PO SCH (08:08)
[2016-06-04] MEDS: FUROSEMIDE 40 MG TAB PO SCH (08:08)
[2016-06-04] MEDS: CHOLECALCIFEROL 1000 INTER.UNIT TAB PO SCH (08:08)
[2016-06-04] MEDS: PANTOprazole SOD 40 MG TAB PO SCH (08:08)
[2016-06-04] MEDS: GUAIFENESIN 600 MG TABCR PO SCH ×2 (08:08→20:54)
[2016-06-04] MEDS: CYANOCOBALAMIN 500 MCG TAB (VIT B-12) PO SCH (08:09)
[2016-06-04] MEDS: LEVOFLOXACIN 500 MG TAB PO SCH (08:09)
[2016-06-04] MEDS: OSELTAMIVIR PHOSPHATE 75 MG CAP PO SCH ×2 (08:09→20:53)
[2016-06-04] MEDS: INSULIN HUMAN NPH SQ SCH ×2 (08:11→16:44)
[2016-06-04] MEDS: BUDESONIDE/FORMOTEROL FUMARATE 160/4.5 60 PUFFS/INHALER INH SCH ×2 (08:12→20:52)
[2016-06-04] MEDS: INSULIN ASPART 100 UNITS/ML 3 ML PEN SC SCH ×4 (08:15→21:00)
[2016-06-04] MEDS: LABETALOL HCL 200 MG TAB PO SCH ×2 (09:19→20:55)
[2016-06-04] MEDS: IPRATROPIUM BROMIDE NEB SOLN 0.02% 2.5 ML VIAL INH PRN (11:07)
[2016-06-04] MEDS ORDERED: FUROSEMIDE 40 MG TAB PO ONE (12:15)
[2016-06-04] MEDS ORDERED: AMLODIPINE BESYLATE 5 MG TAB PO ONE (12:17)
--- NOTE | 2016-06-04 12:28 | Hospitalist Progress Note ---
Hospitalist Progress Note Date of Service Jun 04, 2016. Subjective Pt evaluation today including: conversation w/ patient, physical exam, chart review, lab review, review of studies, review of inpatient medication list PO Intake: asif Voiding: no voiding problems Feeling much better today, less SOB, is ambulating to bathroom and able to speak in sentences afterwards which she was not able to do yesterday. Afebrile, no other concerns. Constitutional: No fever Eyes: No problem reported ENT: No problem reported Respiratory: + cough (but is less), + dyspnea on exertion, + shortness of breath Cardiovascular: No chest pain Abdomen: No diarrhea, No nausea, No pain, No vomiting Musculoskeletal: + joint pain (knee pain) Female : No problem reported Neurologic: No problem reported Psychiatric: No problem reported Heme: No problem reported Endo: No problem reported Skin: + rash (chronic redness to legs bilat) All Other Systems: Reviewed and Negative Objective Vital Signs Date Time Temp Pulse Resp B/P Pulse Ox O2 Delivery O2 Flow Rate FiO2 06/04/16 11:07 76 20 96 BiPAP/CPAP 2.0 06/04/16 08:43 Nasal Cannula 2.0 06/04/16 08:42 78 20 92 BiPAP/CPAP 2.0 06/04/16 07:47 36.8 71 20 170/72 95 06/04/16 02:59 76 20 95 BiPAP/CPAP 2.0 06/04/16 00:00 Nasal Cannula 2.0 06/03/16 23:28 78 20 96 BiPAP/CPAP 2.0 06/03/16 20:59 78 160/70 06/03/16 20:00 Nasal Cannula 2.0 06/03/16 19:07 72 20 97 Nasal Cannula 2.0 06/03/16 16:00 Nasal Cannula 3.0 06/03/16 15:35 72 20 97 Nasal Cannula 2.0 06/03/16 15:24 36.5 75 20 137/68 95 06/03/16 13:13 82 146/75 Physical Exam General Appearance: no apparent distress, + obese (morbidly) Eyes: normal inspection, sclerae normal Neck: trachea midline Respiratory/Chest: no respiratory distress, no accessory muscle use, + decreased breath sounds (at bases but overall improved air movement since yesterday, occasional exp wheezes, no rales or rhonchi) Cardiovascular: regular rate, rhythm, no gallop, no murmur, + pertinent finding (1-2+ pitting edema legs bilat slightly improved from previous) Abdomen: normal bowel sounds, non tender, soft (and obese) Extremities: non-tender, no calf tenderness Neurologic/Psychiatric: alert, normal mood/affect, oriented x 3 Skin: warm/dry, + pertinent finding (legs bilat with erythema but no induration or ulcerations) Laboratory Results Last 24 Hours Test 06/03/16 12:55 06/03/16 16:20 06/03/16 19:41 06/04/16 05:38 Urine Color YELLOW Urine Appearance CLEAR Urine pH 5.0 Urine Specific [place] 1.007 Urine Protein NEG Urine Glucose (UA) NEG Urine Ketones NEG Urine Occult Blood NEG Urine Nitrite NEG Urine Bilirubin NEG Urine Urobilinogen NEG Urine Leukocyte Esterase NEG Urine WBC (Auto) 0 /hpf Urine RBC (Auto) 0-4 /hpf Urine Hyaline Casts (Auto) 0 /lpf Urine Epithelial Cells (Auto) 5-10 /lpf Urine Bacteria (Auto) NEG Urine Yeast (Auto) Bedside Glucose 241 mg/dl 256 mg/dl White Blood Count 9.01 K/uL Red Blood Count 4.64 M/uL Hemoglobin 12.6 g/dL Hematocrit 40.0 % Mean Corpuscular Volume 86.2 fL Mean Corpuscular Hemoglobin 27.2 pg Mean Corpuscular Hemoglobin Concent 31.5 g/dl Platelet Count 282 K/uL Mean Platelet Volume 10.8 fL Neutrophils (%) (Auto) 81.9 % Lymphocytes (%) (Auto) 9.0 % Monocytes (%) (Auto) 8.8 % Eosinophils (%) (Auto) 0.0 % Basophils (%) (Auto) 0.0 % Neutrophils # (Auto) 7.38 K/uL Lymphocytes # (Auto) 0.81 K/uL Monocytes # (Auto) 0.79 K/uL Eosinophils # (Auto) 0.00 K/uL Basophils # (Auto) 0.00 K/uL RDW Standard Deviation 51.3 fL RDW Coefficient of Variation 16.0 % Immature Granulocyte % (Auto) 0.3 % Immature Granulocyte # (Auto) 0.03 K/uL Prothrombin Time 29.6 SECONDS Prothromb Time International Ratio 2.7 Sodium Level 141 mmol/L Potassium Level 4.3 mmol/L Chloride Level 103 mmol/L Carbon Dioxide Level 31 mmol/L Anion Gap 7.0 mmol/L Blood Urea Nitrogen 43 mg/dl Creatinine 1.50 mg/dl Est Creatinine Clear Calc Drug Dose 53.8 ml/min Estimated GFR () 40.8 Estimated GFR (Non- 35.2 BUN/Creatinine Ratio 28.5 Random Glucose 230 mg/dl Calcium Level 9.0 mg/dl Magnesium Level 2.5 mg/dl Test 06/04/16 11:18 Bedside Glucose 293 mg/dl Assessment and Plan Pt is a 70 yo female with a h/o COPD, CHF, mitral valve regurg, diabetes mellitus type II, hypertension,osteoporosis, vitamin B12 deficiency, hypothyroidism, GERD, depression, hypokalemia, hyperlipidemia, obstructive sleep apnea, bladder dysfunction, here with bilateral PEs. She has several bilateral segmental and subsegmental PEs on CTA chest. There is indeed a chronic DVT in the left superficial femoral vein which is a deep vein despite its nomenclature. This is most likely from her morbid obesity and relative sedentary lifestyle due to severe OA of the knees. 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 -On Levaquin (day 4) (documented as no abx yesterday but this was an oversight)- -> continue Levaquin for 7 day course for severe COPD exacerbation -continueTamiflu and will give 5 day course -extra po lasix 40mg x 1 now and then consider 40mg bid upon discharge depending on renal function in the AM -breathing treatments -Cough medication -continue V steroid 60 mg tid and then transition to po prednisone hopefully tomorrow for dc continue Xopenex with Atrovent nebulizers to use every 6 hours while awake and every 2 hours when necessary -continue Symbicort -supplemental O2 prn, continue CPAP at night. -Pulm following but has not seen in several days Avoid IV Ativan or high doses of Morphine, add low dose of Xanax as needed advised about compliance w CPAP Hypertension, Chronic diastolic CHF, MR-accelerated HTN, now improved but BPs still high -BP is elevated, add hydralazine as needed, she was missing her afternoon dose of labetalol--. added back on 06/03/16 - continue aspirin 81 - continue furosemide 40 mg daily or bid as above - continue labetalol 800 mg by mouth every morning, 600 mg by mouth every afternoon, and 600 mg by mouth at bedtime - Continue losartan 50 mg by mouth daily, potassium chloride 20 mg by mouth daily and mag oxide 250 mg by mouth daily. -add on amlodipine 5mg daily today for improved control Diabetes mellitus type II- sugar is high likely sec to steroid insulin increased and improving -increase Humulin N to 130 units subcutaneous every morning and 84 units subcutaneous every evening - Accu-Cheks before meals and at bedtime with NovoLog coverage. GERD- - Cont PPI, Protonix 40 mg by mouth every morning. Hypothyroidism- -continue levothyroxine sodium 275 g by mouth every morning. Depression- -continue Paxil 40 mg by mouth every afternoon. Hypercholesterolemia- -continue simvastatin 40 mg by mouth every afternoon. Nutraceuticals- -continue calcium, vitamin D, vitamin B-12, and fish oil as outpatient. Anxiety/Insomnia: PRN Ativan or Ambien Discharge planning: Pt will need CM assistance for placement at [facility] hopeful for tomorrow DVT: Coumadin CODE STATUS: FULL CODE Disposition: [facility]
[2016-06-04] MEDS: LABETALOL HCL 300 MG TAB PO SCH (13:09)
[2016-06-04] MEDS ORDERED: LABETALOL HCL 300 MG TAB PO SCH (14:00)
[2016-06-04] MEDS: LEVALBUTEROL 1.25MG/0.5ML NEB INH PRN (15:14)
[2016-06-04] MEDS: WARFARIN SOD 5 MG TAB PO SCH (16:45)
[2016-06-04] MEDS: ASPIRIN 81 MG ECTAB PO SCH (20:53)
[2016-06-04] MEDS: PAROXETINE 20 MG TAB PO SCH (20:55)
[2016-06-04] MEDS: SIMVASTATIN 40 MG TAB PO SCH (20:55)
[2016-06-04] MEDS: ZOLPIDEM TARTRATE 5 MG TAB PO PRN (21:47)
[2016-06-05] VITALS (7 sets, daily range): BP systolic 153–167; BP diastolic 73–79; PULSE 67–77; TEMP 36.5; O2SAT 92–94; Ht 167.6 cm; Wt 151.7 kg
[2016-06-05] MEDS: LEVALBUTEROL 1.25MG/0.5ML NEB INH SCH ×4 (03:30→15:30)
[2016-06-05] MEDS: IPRATROPIUM BROMIDE NEB SOLN 0.02% 2.5 ML VIAL INH SCH ×4 (03:30→15:30)
[2016-06-05] MEDS: METHYLPREDNISOLONE IV 60 MG in SYRINGE 0 ML IV SCH (05:50)
[2016-06-05] MEDS: LEVOTHYROXINE 200 MCG TAB PO SCH (05:51)
[2016-06-05] MEDS: LEVOTHYROXINE 75 MCG TAB PO SCH (05:51)
[2016-06-05 06:18] LABS: COMPLETE YES; HEMATOCRIT 39.8 % (37-47); IG% 0.2 %; LYMPH % 8.8 %; LYMPH ABS # 0.77 K/uL (1.2-3.4); MEAN CELL VOLUME 84.7 fL (80-100); MEAN CORPUSCULAR HEMOGLOBIN 27.7 pg (25-34); MEAN CORPUSCULAR HGB CONC 32.7 g/dl (32-36); MEAN PLATELET VOLUME 10.7 fL (7.4-10.4); MONO % 6.4 %; NEUT % 84.6 %; PLATELET COUNT 292 K/uL (130-400)
[2016-06-05 06:20] LABS: INR 2.8 (0.9-1.1); PROTHROMBIN TIME (PATIENT) 31.7 SECONDS (9.0-12.0)
[2016-06-05 06:52] LABS: CALCIUM 8.8 mg/dl (8.5-10.1); CREATININE 1.4 mg/dl (0.60-1.20); MAGNESIUM 2.6 mg/dl (1.8-2.4); POTASSIUM 4.1 mmol/L (3.5-5.1)
[2016-06-05] MEDS: LEVALBUTEROL 1.25MG/0.5ML NEB INH PRN (07:16)
--- NOTE | 2016-06-05 07:49 | DIAGNOSTIC IMAGING REPORT ---
CHEST ONE VIEW PORTABLE CLINICAL HISTORY: Congestive failure COMPARISON STUDY: 06/03/2016 FINDINGS: The heart remains enlarged. There is mild pulmonary venous hypertension. There is no lobar consolidation. There is minimal blunting of the lateral costophrenic angles.[ IMPRESSION: Cardiomegaly and mild pulmonary venous hypertension. No evidence of focal pulmonary consolidation Electronically signed by: Simon Walter M.D. 06/05/2016 7:48 AM
[2016-06-05] MEDS ORDERED: AMLODIPINE BESYLATE 5 MG TAB PO SCH (08:00)
[2016-06-05] MEDS ORDERED: INSULIN HUMAN NPH SQ SCH (08:00)
[2016-06-05] MEDS: LABETALOL HCL 200 MG TAB PO SCH (08:07)
[2016-06-05] MEDS: CYANOCOBALAMIN 500 MCG TAB (VIT B-12) PO SCH (08:07)
[2016-06-05] MEDS: GUAIFENESIN 600 MG TABCR PO SCH (08:07)
[2016-06-05] MEDS: BUDESONIDE/FORMOTEROL FUMARATE 160/4.5 60 PUFFS/INHALER INH SCH (08:07)
[2016-06-05] MEDS: PANTOprazole SOD 40 MG TAB PO SCH (08:08)
[2016-06-05] MEDS: POTASSIUM CHLORIDE 10 MEQ TABCR PO SCH (08:08)
[2016-06-05] MEDS: LOSARTAN POTASSIUM 50 MG TAB PO SCH (08:08)
[2016-06-05] MEDS: FUROSEMIDE 40 MG TAB PO SCH (08:09)
[2016-06-05] MEDS: OSELTAMIVIR PHOSPHATE 75 MG CAP PO SCH (08:09)
[2016-06-05] MEDS: CHOLECALCIFEROL 1000 INTER.UNIT TAB PO SCH (08:09)
[2016-06-05] MEDS: INSULIN ASPART 100 UNITS/ML 3 ML PEN SC SCH ×3 (08:24→17:43)
[2016-06-05] MEDS: IPRATROPIUM BROMIDE NEB SOLN 0.02% 2.5 ML VIAL INH PRN (11:26)
[2016-06-05] MEDS ORDERED: TYL325X PO (11:51)
[2016-06-05] MEDS ORDERED: OXGN (11:51)
[2016-06-05] MEDS ORDERED: CMD5 PO (11:51)
[2016-06-05] MEDS ORDERED: AMB5 PO (11:51)
[2016-06-05] MEDS ORDERED: XPNINS1255 INH ×2 (11:51)
[2016-06-05] MEDS ORDERED: XNX25 PO (11:51)
[2016-06-05] MEDS ORDERED: NVLNI SQ ×2 (11:51)
[2016-06-05] MEDS ORDERED: TMF75 PO (11:51)
[2016-06-05] MEDS ORDERED: GFNSR600 PO (11:51)
[2016-06-05] MEDS ORDERED: LEVO500T19 PO (11:51)
[2016-06-05] MEDS ORDERED: NVLGIPEN SC (11:51)
[2016-06-05] MEDS ORDERED: PRD20 PO (11:51)
[2016-06-05] MEDS ORDERED: LSX40 PO (11:51)
[2016-06-05] MEDS ORDERED: ATRINS INH ×2 (11:51)
[2016-06-05] MEDS ORDERED: NRV5 PO (11:51)
[2016-06-05] MEDS: LEVOFLOXACIN 500 MG TAB PO SCH (12:02)
--- NOTE | 2016-06-05 12:21 | Discharge Instructions ---
Discharge Instructions Admission Reason for Admission: Bilateral Pulmonary Embolism Discharge Discharge Diagnosis / Problem: Pulmonary embolism, COPD, Influenza A Discharge Goals Goal(s): Improve disease control, Therapeutic intervention Activity Recommendations Activity Level: Ambulates in room, Assistance Required Therapies: Physical Therapy, Weight Bearing Status (full), Occupational Therapy Exercise/Sports Limitations: gradually increase as tolerated Shower/Bathe: no limitations . Additional Information Patient informed of condition: Yes Advance Directives: No DNR: No Level of Care: Acute Rehab Communicable Disease: Yes (Influenza A) Prognosis: Stable Oxygen at (LPM): 2-3LNC continuously and CPAP at nighttime Narayan Catheter: No Instructions / Follow-Up Instructions / Follow-Up Follow up with Pulmonary in 1 week, Dr. Nadir Bonilla [place] Hospital Course: Pt is a 70 yo female with a h/o COPD, CHF, mitral valve regurg, diabetes mellitus type II, hypertension,osteoporosis, vitamin B12 deficiency, hypothyroidism, GERD, depression, hypokalemia, hyperlipidemia, obstructive sleep apnea, bladder dysfunction, here with bilateral PEs. She has several bilateral segmental and subsegmental PEs on CTA chest. There is indeed a chronic DVT in the left superficial femoral vein which is a deep vein despite its nomenclature. This is most likely from her morbid obesity and relative sedentary lifestyle due to severe OA of the knees. Bilateral segmental and subsegmental pulmonary emboli,acute on chronic hypoxemic respiratory failure, COPD--> was on heparin gtt and then transitioned/ overlapped with warfarin - continue warfarin today at 5mg and will need at least 6 months of anticoagulation -check daily INR - DVT in left superficial femoral vein - ECHO completed - no right heart strain -VQ scan dced by pul-was looking for CTED but pt couldn't tolerate lying flat SOB and coughing poss COPD exacerbation--> +Influenza A respiratory illness, Also with CHF on CXR--> improved with IV lasix x 1 dose but back closer bumped slightly -On Levaquin (day 5) -> continue Levaquin for 10 day course for severe COPD exacerbation -continueTamiflu and will give 5 day course -breathing treatments -mucinex -continue IV steroid 60 mg tid and then transition to po prednisone for dc continue Xopenex with Atrovent nebulizers to use every 6 hours while awake and every 2 hours when necessary -continue Symbicort -supplemental O2 prn, continue CPAP at night. -Pulm following and should be seen in their office in 1 week Avoid IV Ativan or high doses of Morphine, add low dose of Xanax as needed advised about compliance w CPAP Hypertension, Chronic diastolic CHF, MR-accelerated HTN, now improved but BPs still high -BP is elevated, add hydralazine as needed, she was missing her afternoon dose of labetalol--. added back on 06/03/16 - continue aspirin 81 - continue furosemide 40 mg daily or bid prn as above - continue labetalol 800 mg by mouth every morning, 600 mg by mouth every afternoon, and 600 mg by mouth at bedtime - Continue losartan 50 mg by mouth daily, potassium chloride 20 mg by mouth daily and mag oxide 250 mg by mouth daily. -added on amlodipine 5mg daily today for improved control Diabetes mellitus type II- sugar is high likely sec to steroid insulin increased and improving -increased Humulin N to 130 units subcutaneous every morning and 84 units subcutaneous every evening although these doses are lower than home doses as she was having hypoglycemia early in hospital stay (likely due to healthier diet in hospital) - Accu-Cheks before meals and at bedtime with NovoLog coverage. GERD- - Cont PPI by mouth every morning. Hypothyroidism- -continue levothyroxine sodium 275 g by mouth every morning. Depression- -continue Paxil 40 mg by mouth every afternoon. Hypercholesterolemia- -continue simvastatin 40 mg by mouth every afternoon. Nutraceuticals- -continue calcium, vitamin D, vitamin B-12, and fish oil as outpatient. Anxiety/Insomnia: PRN alprazolam or Ambien Prophylaxis: Coumadin, PPI CODE STATUS: FULL CODE Disposition: Acute rehab Current Hospital Diet Patient's current hospital diet: AHA Diet (Heart Healthy) Discharge Diet Recommended Diet: AHA Diet (Heart Healthy), Diabetes Type 2 Diet Fluid Restriction: 1800 ml (7 cups) Procedures Procedures Performed: ECHO CTA Chest Venous Doppler BLE Pending Studies Studies pending at discharge: no Physician Orders On Transfer Special Precautions: Fall risk Dressing Changes: None IV Therapy: None Vital Signs: Daily Weigh: Daily POLST Discussion: Not Applicable Laboratory Results Hemoglobin A1c Test 04/06/16 10:36 Range/Units Estimated Average Glucose 163 mg/dl Hemoglobin A1c 7.3 H 4.5-5.6 % Lipid Panel Test 04/06/16 10:36 Range/Units Triglycerides Level 167 H 0-150 mg/dl Cholesterol Level 117 0-200 mg/dl HDL Cholesterol 31 mg/dl Cholesterol/HDL Ratio 3.8 LDL Cholesterol, Calculated 53 mg/dl Medical Emergencies . Who to Call and When: Medical Emergencies: If at any time you feel your situation is an emergency, please call 911 immediately. . Non-Emergent Contact Non-Emergency issues call your: Primary Care Provider, Manager Oncology Call Non-Emergent contact if: temperature is above 101, you have any medication questions or if you have worsening shortness of breath or chest pain . . "Provider Documentation" section prepared by Yumi Lang. Core Measure Problem Core Measures: None
[2016-06-05] MEDS: LABETALOL HCL 300 MG TAB PO SCH (13:35)
[2016-06-05] MEDS: WARFARIN SOD 5 MG TAB PO SCH (16:07)
[2016-06-05] MEDS: INSULIN HUMAN NPH SQ SCH (17:43)
[2016-06-05] MEDS ORDERED: METHYLPREDNISOLONE IV 60 MG in SYRINGE 0 ML IV SCH (18:00)
--- NOTE | 2016-06-06 22:30 | Discharge Summary ---
Discharge Summary Admission Date: May 24, 2016 at 15:27 Discharge Date: Jun 05, 2016 Discharge Disposition: Rehab Principal Diagnosis: Pulmonary embolism, Influenza A Problems/Secondary Diagnoses: COPD exacerbation Acute on chronic diastolic CHF Mitral valve regurgitation Left SFV DVT Diabetes mellitus type II Hypertension Osteoporosis Vitamin B12 deficiency Hypothyroidism GERD CKD stage III Depression Hypokalemia Hyperlipidemia Obstructive sleep apnea Bladder dysfunction Morbid obesity Severe OA of the knees Acute on chronic hypoxemic respiratory failure Influenza A respiratory illness Accelerated HTN Anxiety/Insomnia Immunizations: Have You Had Influenza Vaccine: N/A History of Tetanus Vaccine?: Yes History of Pneumococcal: Yes History of Hepatitis B Vaccine: Unknown Procedures: CT ANGIOGRAPHY OF THE CHEST, ABDOMEN, AND PELVIS CLINICAL HISTORY: Difficulty breathing. Chest pain. COMPARISON STUDY: Chest radiograph May 24, [address] August 08, 2010. TECHNIQUE: Before and following the IV administration of 119 mL of Optiray-320, helical axial images of the chest, abdomen and pelvis were obtained. Maximal intensity projections and sagittal and coronal reformats were viewed on an independent 3D workstation. IV contrast was administered without complication. CT DOSE: 7238.91 mGy.cm FINDINGS: No intramural hematoma or aortic dissection is present. The caliber of the ascending aorta is at the upper limits of normal. There is moderate cardiomegaly and extensive mitral annular calcification. There is no pericardial effusion. There are trace bilateral pleural effusions. Note is made of multiple small segmental and subsegmental pulmonary emboli within the lungs. There are no central pulmonary emboli. Mild interstitial thickening suggests pulmonary edema. There are mild groundglass opacities. There is no consolidation. A few lung nodules are unchanged since earlier CT. These are likely benign. There is no consolidation to suggest pneumonia. Bony thorax is unremarkable. The caliber of the abdominal aorta is normal. There is mild to moderate plaque. There is no dissection. A few subcentimeter renal lesions are too small to characterize. The liver is moderately enlarged. There is anasarca. There is no evidence for a bowel obstruction. No pneumatosis, free air or portal venous gas is present. There is no lymphadenopathy. IMPRESSION: 1. Several small segmental and subsegmental bilateral pulmonary emboli. 2. No aortic dissection. 3. Findings suggestive of mild edema and trace bilateral pleural effusions. 4. Anasarca. 5. Hepatomegaly. 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 Edema. PEs COMPARISON STUDY: 03/25/2016 FINDINGS: There is normal compressibility, flow, and augmentation within the bilateral lower extremity deep venous systems. 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 No acute deep venous thrombosis Multiple CXRs ECHO: * Extremely limited study as the apatient is sitting up for study. * Left ventricular systolic function is normal. * Ejection Fraction = 50-55%. * The left ventricular wall motion is normal. * The RV is poorly visualized. In the Limitted views the RVOT portion does not seem dilated. * Additionally the interventricular septum does NOT appeared flattened. * Can not assess RV function. * There is severe mitral annular calcification. * Moderate mitral stenosis secondary to MAC (MG 5 mm/hg) * Diastolic dysfunction, Grade II (pseudonormalization pattern). * Elevated E to e' ratio. * There is trace tricuspid regurgitation. Could not assess PA pressures Consultations: Pulmonology Medication Reconciliation New Medications: Levofloxacin (Levaquin) 500 Mg Tab 1 TAB PO DAILY for 5 Days, #5 TAB Prednisone (Prednisone) 20 Mg Tab 60 MG PO DAILY for 8 Days x 2 days then 40mg po daily x 2 days then 20mg po daily x 2 days then 10mg po daily x 2 days then stop Acetaminophen (Tylenol) 325 Mg Tab 650 MG PO Q4H PRN for Pain or Fever for 30 Days, #240 TAB Alprazolam (Alprazolam) 0.25 Mg Tab 0.25 MG PO Q8H PRN for Anxiety/Agitation for 7 Days, #21 TAB Amlodipine Besylate (Amlodipine Besylate) 5 Mg Tab 5 MG PO QAM for 30 Days, TAB Furosemide (Furosemide) 40 Mg Tab 40 MG PO DAILY for 30 Days, TAB and an extra 40mg qPM for weight gain > 2 lbs in one day Guaifenesin Ext Rel (Mucinex Ext Rel) 600 Mg Tabcr 1200 MG PO Q12 for 30 Days Insulin Aspart (Novolog Flexpen) 100 Units/Ml Inj 0 UNITS SC ACHS for 30 Days Insulin Human NPH (Novolin N) 100 Units/Ml Susp 130 UNITS SQ QDB for 30 Days Insulin Human NPH (Novolin N) 100 Units/Ml Susp 84 UNITS SQ QDD for 30 Days Ipratropium [place] (Ipratropium [place]) 0.5 Mg/2.5 Ml Nebu 0.5 MG INH Q4R for 30 Days Ipratropium [place] (Ipratropium [place]) 0.5 Mg/2.5 Ml Nebu 0.5 MG INH Q2R PRN for SOB/Wheezing for 30 Days Levalbuterol (Levalbuterol) 1.25 Mg/0.5 Ml Nebu 1.25 MG INH Q4R for 30 Days Levalbuterol (Levalbuterol) 1.25 Mg/0.5 Ml Nebu 1.25 MG INH Q2R PRN for SOB/Wheezing for 30 Days Oseltamivir Phosphate (Tamiflu) 75 Mg Cap 75 MG PO BID for 2 Days, CAP last dose evening of 06/07/15 Warfarin Sod (Coumadin) 5 Mg Tab 5 MG PO DAILY@16 for 30 Days, TAB Zolpidem Tartrate (Zolpidem Tartrate) 5 Mg Tab 10 MG PO HSZ PRN for Insomnia for 30 Days, TAB Changed Medications: Oxygen (Oxygen) Gas 2 LITERS NA HS for 30 Days (Changed from: 3 LITERS) Continued Medications: Alendronate Sodium (Fosamax) 70 Mg Tab 70 MG PO WK Aspirin (Aspirin 81) 81 Mg Tab 81 MG PO HS Budesonide/Formoterol Fumarate (Symbicort 160/4.5 Inhaler) 120 Puffs/ Aero 2 PUFFS INH BID, 3 Refills RINSE MOUTH AFTER USE Calcium (Caltrate) 600 Mg Tab 600 MG PO DAILY Cholecalciferol (Vitamin D) 1,000 Inter.unit Tab 3000 INTER.UNIT PO DAILY, 0 Refills Cyanocobalamin (Vitamin B-12) 1,000 Mcg Tab 1000 MCG PO DAILY, 0 Refills Labetalol (Normodyne) 200 Mg Tab 800 MG PO QAM 4 TABLET DOSE Labetalol Hcl (Normodyne) 200 Mg Tab 600 MG PO HS 3 TABLET DOSE Labetalol (Normodyne) 200 Mg Tab 600 MG PO QPM, TAB Levothyroxine Sodium (Synthroid) 75 Mcg Tab 75 MG PO QAM Levothyroxine Sodium (Synthroid) 200 Mcg Tab 200 MG PO QAM Losartan Potassium (Cozaar) 50 Mg Tab 1 TAB PO DAILY for 30 Days, #30 TAB 5 Refills Omeprazole (Prilosec) 20 Mg Capcr 20 MG PO QAM, CAP TAKE BEFORE BREAKFAST Paroxetine (Paxil) 40 Mg Tab 40 MG PO QPM, TAB Potassium Chloride (Micro-K Ext Rel) 10 Meq Capcr 20 MEQ PO DAILY, 0 Refills Simvastatin (Zocor) 40 Mg Tab 40 MG PO QPM, TAB Discontinued Medications: Benzonatate (Tessalon Perles) 100 Mg Cap 100 MG PO UD, CAP take 1 capsule 2 to 3 times daily as directed Fish Oil ([place]-3) 1 Ea Cap 2 CAP PO DAILY, CAP Furosemide (Lasix) 40 Mg Tab 40 MG PO DAILY for 1 Day, #1 TAB this is just med recs, don't dispense Insulin Isophane (Human) (Novolin N Relion) 100 Unit/Ml Inj 105 UNITS SQ QPM TAKE BEFORE SUPPER, DOSE MAY CHANGE DEPENDS ON BLOOD SUGAR LEVEL Insulin Isophane (Human) (Novolin N Relion) 100 Unit/Ml Inj 145 UNITS SQ QAM TAKE BEFORE BREAKFAST, DOSE MAY CHANGE DEPENDS ON BLOOD SUGAR LEVEL Insulin Regular (Human) (Novolin R Relion) 100 Unit/Ml Inj 60 UNITS SQ QAM TAKE BEFORE BREAKFAST, DOSE MAY CHANGE DEPENDS ON BLOOD SUGAR LEVEL Insulin Regular (Human) (Novolin R Relion) 100 Unit/Ml Inj 80 UNITS SQ QPM TAKE BEFORE SUPPER, DOSE MAY CHANGE DEPENDS ON BLOOD SUGAR LEVEL Ipratropium-Albuterol (Duoneb) 3 Ml Nebu 1 TREATMENT INH Q4H for 7 Days, #1 INHA 1 box for copd exac, icd 10 code J44.1 Ipratropium-Albuterol (Combivent Respimat) 1 Aer Aer 1 PUFFS INH QID for Shortness of Breath for 7 Days, #1 INH 1 box for copd exac, icd 10 code J44.1 Magnesium Oxide (Mg Supplement (Magnesium) 500 Mg Tab 250 MG PO DAILY Referrals At Discharge Follow up Referrals: Family Practice Referral - Within 1-2 Weeks with RV. Jean Baptiste MD [employer] Referral - Within 1 Week with Nadir Bonilla D.O. Pulmonary Discharge Exam Physical Exam: General Appearance: no apparent distress, + obese (morbidly) Eyes: normal inspection, sclerae normal Neck: trachea midline Respiratory/Chest: no respiratory distress, no accessory muscle use, + decreased breath sounds (at bases but overall improved air movement since yesterday, occasional exp wheezes, no rales or rhonchi) Cardiovascular: regular rate, rhythm, no gallop, no murmur, + pertinent finding (1-2+ pitting edema legs bilat slightly improved from previous) Abdomen: normal bowel sounds, non tender, soft (and obese) Extremities: non-tender, no calf tenderness Neurologic/Psychiatric: alert, normal mood/affect, oriented x 3 Skin: warm/dry, + pertinent finding (legs bilat with erythema but no induration or ulcerations) Review of Systems: Constitutional: No fever Eyes: No problem reported ENT: No problem reported Respiratory: + cough, + dyspnea on exertion Cardiovascular: No chest pain Abdomen: No constipation, No diarrhea, No pain Musculoskeletal: + joint pain (knees) Genitourinary - Female: No problem reported Neurologic: No problem reported Psychiatric: + anxiety, + insomnia Endocrine: No problem reported Hematologic / Lymphatic: No problem reported Integumentary: No problem reported Hospital Course Hospital Course: Pt is a 70 yo female with a h/o COPD, CHF, mitral valve regurg, diabetes mellitus type II, hypertension,osteoporosis, vitamin B12 deficiency, hypothyroidism, GERD, depression, hypokalemia, hyperlipidemia, obstructive sleep apnea, bladder dysfunction, here with bilateral PEs. She has several bilateral segmental and subsegmental PEs on CTA chest. There is indeed a chronic DVT in the left superficial femoral vein which is a deep vein despite its nomenclature. This is most likely from her morbid obesity and relative sedentary lifestyle due to severe OA of the knees. 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 -Pulm following and should be seen in their office in 1 week Avoid IV Ativan or high doses of Morphine, add low dose of Xanax as needed advised about compliance w CPAP Hypertension, Acute on Chronic diastolic CHF, MR-accelerated HTN, now improved but BPs still high -BP is elevated, add hydralazine as needed, she was missing her afternoon dose of labetalol--. added back on 06/03/16 - continue aspirin 81 - continue furosemide 40 mg daily or bid prn as above - continue labetalol 800 mg by mouth every morning, 600 mg by mouth every afternoon, and 600 mg by mouth at bedtime - Continue losartan 50 mg by mouth daily, potassium chloride 20 mg by mouth daily and mag oxide 250 mg by mouth daily. -added on amlodipine 5mg daily today for improved control Diabetes mellitus type II- sugar is high likely sec to steroid insulin increased and improving -increased Humulin N to 130 units subcutaneous every morning and 84 units subcutaneous every evening although these doses are lower than home doses as she was having hypoglycemia early in hospital stay (likely due to healthier diet in hospital) - Accu-Cheks before meals and at bedtime with NovoLog coverage. 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 Hypothyroidism- -continue levothyroxine sodium 275 g by mouth every morning. Depression- -continue Paxil 40 mg by mouth every afternoon. Hypercholesterolemia- -continue simvastatin 40 mg by mouth every afternoon. Nutraceuticals- -continue calcium, vitamin D, vitamin B-12, and fish oil as outpatient. Anxiety/Insomnia: PRN alprazolam or Ambien Prophylaxis: Coumadin, PPI CODE STATUS: FULL CODE Disposition: Acute rehab Total Time Spent: Greater than 30 minutes This includes examination of the patient, discharge planning, medication reconciliation, and communication with other providers. Discharge Instructions Please refer to the electronic Patient Visit Report (Discharge Instructions) for additional information. Follow-Up With PCP within 1 week With Pulm within 1-2 weeks Check INR in 1 day Additional Copies To RV. Jean Baptiste MD; Nadir Bonilla D.O. Pulmonary
--- NOTE | 2016-06-27 13:08 | Hospitalist Progress Note ---
Hospitalist Progress Note Date of Service 05/26/16 Subjective Pt evaluation today including: conversation w/ patient SOB with exertion, no other complaints Constitutional: No fever Respiratory: + shortness of breath All Other Systems: Reviewed and Negative Objective Physical Exam Notes: General Appearance: WD/WN, no apparent distress, + obese (morbidly) Eyes: normal inspection, sclerae normal ENT: pharynx normal Neck: trachea midline Respiratory/Chest: no respiratory distress, no accessory muscle use, + decreased breath sounds (throughout) Cardiovascular: regular rate, rhythm, no gallop, no murmur, + pertinent finding (2-3+ pitting edema bilat LEs L>R) Abdomen: normal bowel sounds, non tender, soft (and morbidly obese) Extremities: no calf tenderness, + swelling (as above) Neurologic/Psychiatric: alert, normal mood/affect, oriented x 3 Skin: warm/dry, + pertinent finding (legs with pink color, chronic venous stasis) Assessment and Plan Pt is a 70 yo female with a h/o COPD, CHF, mitral valve regurg, diabetes mellitus type II, hypertension,osteoporosis, vitamin B12 deficiency, hypothyroidism, GERD, depression, hypokalemia, hyperlipidemia, obstructive sleep apnea, bladder dysfunction, here with bilateral PEs. She has several bilateral segmental and subsegmental PEs on CTA chest. There is indeed a chronic DVT in the left superficial femoral vein which is a deep vein despite its nomenclature. This is most likely from her morbid obesity and relative sedentary lifestyle due to severe OA of the knees. Bilateral segmental and subsegmental pulmonary emboli,acute on chronic hypoxemic respiratory failure, COPD- -patient admitted to telemetry and close oxygen monitoring. -continue heparin IV -Check V/Q scan for chronic thromboembolic disease as per Pulm -check ECHO for right heart strain -appreciate Pulm consult -will vargas out Xarelto or Eliquis with her outpatient pharmacy, if cost ok, will start after on heparin gtt for 48 hrs -continue Xopenex with Atrovent nebulizers to use every 6 hours while awake and every 2 hours when necessary -continue SYmbicort -supplemental O2 Hypertension, Chronic diastolic CHF, MR-accelerated HTN, now improved: - continue aspirin 81 -continue furosemide 40 mg daily and give extra 40m IV x 1 now for LE edema -continue labetalol 800 mg by mouth every morning, 600 mg by mouth every afternoon, and 600 mg by mouth at bedtime - Continue losartan 50 mg by mouth daily, potassium chloride 20 mg by mouth daily and mag oxide 250 mg by mouth daily. Diabetes mellitus type II--continue Humulin N 145 units subcutaneous every morning and 105 units subcutaneous every afternoon - Will place on Accu-Cheks before meals and at bedtime with NovoLog coverage. GERD--change omeprazole 20 mg by mouth daily to pantoprazole 40 mg by mouth every morning. Hypothyroidism--continue levothyroxine sodium 275 g by mouth every morning. Depression--continue Peroxin 40 mg by mouth every afternoon. Hypercholesterolemia--continue simvastatin 40 mg by mouth every afternoon. Nutraceuticals--continue calcium, vitamin D, vitamin B-12, and fish oil as outpatient.
[2016-07-25] MEDS ORDERED: ZRX25 PO (10:17)
[2016-07-25] MEDS ORDERED: PRD10 PO (10:17)
[2017-04-01] MEDS ORDERED: BUME1TAB45 (09:35)
[2017-04-01] MEDS ORDERED: ZLF50 PO (09:35)
[2017-04-01] MEDS ORDERED: PRAM1TAB52 PO (09:35)
[2017-04-08] MEDS ORDERED: WARF5TAB90 PO ×2 (15:13)
== END 2016-06-05 18:18 | DRG 175 ==
LOC: ENRESERVDT → ENRESERVTM → C.EDB 11:28 → UNDOADMIN 15:27 → C.2T 15:27 → C.4E 05-27 14:16 → C.2T 05-27 14:16
PROVIDERS: ADMIT Hospitalist; ATTEND Family Medicine
DX: I26.99 Other pulmonary embolism without acute cor pulmonale (principal); J96.21 Acute and chronic respiratory failure with hypoxia; J44.1 Chronic obstructive pulmonary disease with (acute) exacerbation; L03.115 Cellulitis of right lower limb; I50.33 Acute on chronic diastolic (congestive) heart failure; I82.412 Acute embolism and thrombosis of left femoral vein; Z68.43 Body mass index [BMI] 50.0-59.9, adult; L03.116 Cellulitis of left lower limb; Z87.891 Personal history of nicotine dependence; Z83.3 Family history of diabetes mellitus; Z79.82 Long term (current) use of aspirin; Z79.4 Long term (current) use of insulin; I34.0 Nonrheumatic mitral (valve) insufficiency; I12.9 Hypertensive chronic kidney disease with stage 1 through stage 4 chronic kidney disease, or unspecified chronic kidney disease; N18.3 Chronic kidney disease, stage 3 (moderate); E11.21 Type 2 diabetes mellitus with diabetic nephropathy; M81.0 Age-related osteoporosis without current pathological fracture; E53.8 Deficiency of other specified B group vitamins; E03.9 Hypothyroidism, unspecified; E87.6 Hypokalemia; E78.00 Pure hypercholesterolemia, unspecified; G47.33 Obstructive sleep apnea (adult) (pediatric); F41.9 Anxiety disorder, unspecified; M17.0 Bilateral primary osteoarthritis of knee; J11.1 Influenza due to unidentified influenza virus with other respiratory manifestations; I50.9 Heart failure, unspecified; E11.649 Type 2 diabetes mellitus with hypoglycemia without coma; E66.01 Morbid (severe) obesity due to excess calories

== ENCOUNTER → 2016-06-22 | Outpatient (CLI) | payer OTHER ==
[~2016-06-22] MED LIST changes: +AMB5 PO; -AMOX1TAB43 PO; +ATRINS INH; -BENZ100C84 PO; +CMD5 PO; -FRS/40 PO; +GFNSR600 PO; -INSU0.01 SQ; -INSU1INJ16 SQ; -IPRA1AER2 INH; -IPRASOL4 INH; +LSX40 PO; -MAGN500T4 PO; +NRV5 PO; +NVLGIPEN SC; +NVLNI SQ; -OMEG10007 PO; +PRD10 PO; +PRD20 PO; +TMF75 PO; +TYL325X PO; +XNX25 PO; +XPNINS1255 INH; +ZRX25 PO
[2016-06-22 14:33] LABS: ALT/SGPT 31 U/L (12-78); AST/SGOT 16 U/L (15-37); BLOOD UREA NITROGEN 15 mg/dl (7-18); CALCIUM 8.7 mg/dl (8.5-10.1); CARBON DIOXIDE 29 mmol/L (21-32); CHLORIDE 104 mmol/L (98-107); GLUCOSE 329 mg/dl (70-99); POTASSIUM 4.3 mmol/L (3.5-5.1); SODIUM 141 mmol/L (136-145)
[2016-06-22 14:36] LABS: INR 2.1 (0.9-1.1); PROTHROMBIN TIME (PATIENT) 23.6 SECONDS (9.0-12.0)
[2016-06-22 14:41] LABS: ALB/GLOB RATIO 0.8 (0.9-2); ALKALINE PHOSPHATASE 65 U/L (45-117)
== END | disposition home or self-care (01) ==
LOC: C.LAB1850 12:51
PROVIDERS: ATTEND Internal Medicine
DX: E03.9 Hypothyroidism, unspecified (principal); I26.99 Other pulmonary embolism without acute cor pulmonale; N18.3 Chronic kidney disease, stage 3 (moderate)

== ENCOUNTER → 2016-06-27 | Outpatient (CLI) | payer OTHER ==
[2016-06-27 17:51] LABS: INR 1.6 (0.9-1.1); PROTHROMBIN TIME (PATIENT) 17.2 SECONDS (9.0-12.0)
== END | disposition home or self-care (01) ==
LOC: C.LAB1850 16:56
PROVIDERS: ATTEND Internal Medicine
DX: I26.99 Other pulmonary embolism without acute cor pulmonale (principal)

== ENCOUNTER 2016-07-18 23:03 | Inpatient (IN) | payer OTHER ==
[~2016-07-18] VITALS: Ht 170.2 cm; Wt 142.3 kg
[~2016-07-18 23:03] MED LIST changes: -PRD10 PO; -ZRX25 PO
[2016-07-18] MEDS ORDERED: RAPID SEQUENCE INDUCTION BAG ONE (23:06)
[2016-07-18] MEDS ORDERED: PROPOFOL IV EMULSION 10 MG/ML 100 ML VIAL IV ONE (23:26)
[2016-07-18] MEDS ORDERED: PIPERACILLIN/TAZOBACTAM 3.375 GM/100ML D5W IV STA (23:27)
[2016-07-18] MEDS ORDERED: MoRPHine SULFATE 4 MG/ML 1 ML CARP\\VIAL IV STA (23:31)
[2016-07-18] MEDS ORDERED: FUROSEMIDE 40 MG/4 ML VIAL IV STA (23:31)
[2016-07-18 23:41] LABS: POINT OF CARE TROPONIN I 0.02 ng/ml (0-0.045)
[2016-07-18 23:42] LABS: BASO % 0.1 %; BASO ABS # 0.02 K/uL (0-0.2); COMPLETE YES; EOS % 2.6 %; HEMATOCRIT 41.2 % (37-47); IG% 0.5 %; LYMPH ABS # 4.66 K/uL (1.2-3.4); MEAN CELL VOLUME 84.4 fL (80-100); MEAN PLATELET VOLUME 10.2 fL (7.4-10.4); MONO % 5.3 %; NEUT % 62.5 %; PLATELET COUNT 330 K/uL (130-400); RED BLOOD COUNT 4.88 M/uL (4.2-5.4); WHITE BLOOD COUNT 16.07 K/uL (4.8-10.8)
[2016-07-18] MEDS ORDERED: PROPOFOL IV EMULSION 10 MG/ML 100 ML VIAL IV PRN (23:45)
[2016-07-18] MEDS ORDERED: NITROGLYCERIN OINT 2% 1GM PACKET EXT ONE (23:45)
[2016-07-18 23:54] LABS: PARTIAL THROMBOPLASTIN RATIO 1.7; PROTHROMBIN TIME (PATIENT) 33.2 SECONDS (9.0-12.0)
[2016-07-18 23:59] LABS: ALT/SGPT 26 U/L (12-78); AST/SGOT 14 U/L (15-37); BLOOD UREA NITROGEN 11 mg/dl (7-18); BUN/CREATININE RATIO 8.8 (10-20); CALCIUM 8.6 mg/dl (8.5-10.1); CARBON DIOXIDE 30 mmol/L (21-32); CHLORIDE 107 mmol/L (98-107); GLUCOSE 161 mg/dl (70-99); POTASSIUM 3.9 mmol/L (3.5-5.1); SODIUM 145 mmol/L (136-145)
[2016-07-19] VITALS (17 sets, daily range): BP systolic 133–178; BP diastolic 66–101; PULSE 65–91; TEMP 36.6–37.6; O2SAT 40–97; Ht 170.2 cm; Wt 142.3 kg
[2016-07-19 00:04] LABS: ALB/GLOB RATIO 0.9 (0.9-2); ALKALINE PHOSPHATASE 84 U/L (45-117); CKMB/CK RATIO 3.3 (0-3.0)
[2016-07-19 00:13] LABS: ALLEN TEST POS (POS); ARTERIAL BLD GAS O2 SATURATION 98.5 % (90-95); ARTERIAL BLOOD GAS BASE EXCESS -0.5 mEq/L (-9-1.8); ARTERIAL BLOOD GAS HCO3 29 mmol/L (19-24); ARTERIAL BLOOD GAS PO2 145 mm/Hg (80-95); O2 ADMINISTRATION 5L 100%
--- NOTE | 2016-07-19 00:44 | EMERGENCY ROOM VISIT NOTE ---
History Report prepared by Kevin: Ilda Neri Under the Supervision of: Dr. Edward Ceballos D.O. First contact with patient: 23:07 Chief Complaint: SHORTNESS OF BREATH Stated Complaint: DIFFICULTY BREATHING History of Present Illness The patient is a 70 year old female who presents to the Emergency Room with complaints of worsened shortness of breath this evening. Per patient's daughter , the patient has had cold-like symptoms over the past 6 days. She has been taking Mucinex and using oxygen at home. She sleeps with a c-pap at night. She was starting to feel much better yesterday. 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 The patient does not have a history of smoking. She does have a history of COPD. History is limited secondary to dyspnea. Source of History: family (daughter) History Limited By: dyspnea Onset: today Position: other (global) Quality: other (shortness of breath) Timing: worsening Note: Other symptoms: cold-like symptoms Review of Systems Unobtainable secondary to dyspnea. Past Medical & Surgical Medical Problems: (1) Bilateral pulmonary embolism (2) Cellulitis (3) Diabetes (4) Hypertension Family History Cancer Diabetes mellitus FH: heart disease FHx: lung disease Hypertension Kidney disease Kidney stones Social History Smoking Status: Former Smoker Alcohol Use: none Drug Use: none Marital Status: Housing Status: lives with family Occupation Status: retired Current/Historical Medications Scheduled Alendronate Sodium (Fosamax), 70 MG PO WK Amlodipine Besylate (Amlodipine Besylate), 5 MG PO QAM Aspirin (Aspirin 81), 81 MG PO HS Budesonide/Formoterol Fumarate (Symbicort 160/4.5 Inhaler), 2 PUFFS INH BID Calcium (Caltrate), 600 MG PO DAILY Cholecalciferol (Vitamin D), 3,000 INTER.UNIT PO DAILY Cyanocobalamin (Vitamin B-12), 1,000 MCG PO DAILY Furosemide (Furosemide), 40 MG PO DAILY Guaifenesin Ext Rel (Mucinex Ext Rel), 1,200 MG PO Q12 Insulin Aspart (Novolog Flexpen), 0 UNITS SC ACHS Insulin Human NPH (Novolin N), 130 UNITS SQ QDB Insulin Human NPH (Novolin N), 84 UNITS SQ QDD Ipratropium [place] (Ipratropium [place]), 0.5 MG INH Q4R Labetalol (Normodyne), 800 MG PO QAM Labetalol (Normodyne), 600 MG PO QPM Labetalol Hcl (Normodyne), 600 MG PO HS Levalbuterol (Levalbuterol), 1.25 MG INH Q4R Levothyroxine Sodium (Synthroid), 75 MG PO QAM Levothyroxine Sodium (Synthroid), 200 MG PO QAM Losartan Potassium (Cozaar), 1 TAB PO DAILY Omeprazole (Prilosec), 20 MG PO QAM Oseltamivir Phosphate (Tamiflu), 75 MG PO BID Oxygen (Oxygen), 2 LITERS NA HS Paroxetine (Paxil), 40 MG PO QPM Potassium Chloride (Micro-K Ext Rel), 20 MEQ PO DAILY Prednisone (Prednisone), 60 MG PO DAILY Simvastatin (Zocor), 40 MG PO QPM Warfarin Sod (Coumadin), 5 MG PO DAILY@16 Scheduled PRN Acetaminophen (Tylenol), 650 MG PO Q4H PRN for Pain or Fever Alprazolam (Alprazolam), 0.25 MG PO Q8H PRN for Anxiety/Agitation Ipratropium [place] (Ipratropium [place]), 0.5 MG INH Q2R PRN for SOB/Wheezing Levalbuterol (Levalbuterol), 1.25 MG INH Q2R PRN for SOB/Wheezing Zolpidem Tartrate (Zolpidem Tartrate), 10 MG PO HSZ PRN for Insomnia Allergies Coded Allergies: Ibuprofen (Verified Allergy, Intermediate, HIVES, 05/24/16) Lisinopril (Verified Adverse Reaction, Mild, COUGH, 05/24/16) coughing Physical Exam Vital Signs Date Time Temp Pulse Resp B/P Pulse Ox O2 Delivery O2 Flow Rate FiO2 07/18/16 23:35 100 07/18/16 23:34 96 Mechanical Ventilator 100 07/18/16 23:29 75 Non-Rebreather 15.0 07/18/16 23:22 111 07/18/16 23:08 115 40 136/96 33 Nasal Cannula 4.0 Physical Exam CONSTITUTIONAL/VITAL SIGNS: Reviewed / noted above. GENERAL: Severe respiratory distress with labored breathing. Poor air movement. Initial pulse ox in the 30s. INTEGUMENTARY: Warm, dry, cyanotic. HEAD: Normocephalic. EYES: without scleral icterus or trauma. ENT/OROPHARYNX: clear and moist. LYMPHADENOPATHY/NECK: Is supple without lymphadenopathy or meningismus. RESPIRATORY: Lung sounds diminished bilaterally with rales. CARDIOVASCULAR: Regular rate and rhythm. GI/ABDOMEN: Soft and nontender. No organomegaly or pulsatile mass. No rebound or guarding. Normal bowel sounds. EXTREMITIES: Warm and well perfused. Lower extremity edema. BACK: No CVA tenderness. NEUROLOGICAL: Intact without focal deficits. PSYCHIATRIC: normal affect. MUSCULOSKELETAL: Normally developed with good muscle tone. Medical Decision & Procedures ER Provider Diagnostic Interpretation: X-ray per my interpretation: Chest x-ray 1 view: Bilateral pulmonary edema. Possible consolidation bilaterally. No pneumothorax. No free air. Laboratory Results 07/18/16 23:10 Red Blood Count 4.88, Mean Corpuscular Volume 84.4, Mean Corpuscular Hemoglobin 27.0, Mean Corpuscular Hemoglobin Concent 32.0, Mean Platelet Volume 10.2, Neutrophils (%) (Auto) 62.5, Lymphocytes (%) (Auto) 29.0, Monocytes (%) (Auto) 5.3, Eosinophils (%) (Auto) 2.6, Basophils (%) (Auto) 0.1, Neutrophils # (Auto) 10.04, Lymphocytes # (Auto) 4.66, Monocytes # (Auto) 0.85, Eosinophils # (Auto) 0.42, Basophils # (Auto) 0.02 07/18/16 23:10 Test 07/18/16 23:10 07/18/16 23:22 07/18/16 23:30 07/19/16 00:00 White Blood Count 16.07 K/uL (4.8-10.8) Red Blood Count 4.88 M/uL (4.2-5.4) Hemoglobin 13.2 g/dL (12.0-16.0) Hematocrit 41.2 % (37-47) Mean Corpuscular Volume 84.4 fL (80-100) Mean Corpuscular Hemoglobin 27.0 pg (25-34) Mean Corpuscular Hemoglobin Concent 32.0 g/dl (32-36) Platelet Count 330 K/uL (130-400) Mean Platelet Volume 10.2 fL (7.4-10.4) Neutrophils (%) (Auto) 62.5 % Lymphocytes (%) (Auto) 29.0 % Monocytes (%) (Auto) 5.3 % Eosinophils (%) (Auto) 2.6 % Basophils (%) (Auto) 0.1 % Neutrophils # (Auto) 10.04 K/uL (1.4-6.5) Lymphocytes # (Auto) 4.66 K/uL (1.2-3.4) Monocytes # (Auto) 0.85 K/uL (0.11-0.59) Eosinophils # (Auto) 0.42 K/uL (0-0.5) Basophils # (Auto) 0.02 K/uL (0-0.2) RDW Standard Deviation 49.7 fL (36.4-46.3) RDW Coefficient of Variation 16.1 % (11.5-14.5) Immature Granulocyte % (Auto) 0.5 % Immature Granulocyte # (Auto) 0.08 K/uL (0.00-0.02) Prothrombin Time 33.2 SECONDS (9.0-12.0) Prothromb Time International Ratio 3.0 (0.9-1.1) Activated Partial Thromboplast Time 45.0 SECONDS (21.0-31.0) Partial Thromboplastin Ratio 1.7 Anion Gap 8.0 mmol/L (3-11) Est Creatinine Clear Calc Drug Dose 71.6 ml/min Estimated GFR () 53.4 Estimated GFR (Non- 46.1 BUN/Creatinine Ratio 8.8 (10-20) Calcium Level 8.6 mg/dl (8.5-10.1) Total Bilirubin 0.5 mg/dl (0.2-1) Aspartate Amino Transf (AST/SGOT) 14 U/L (15-37) Alanine Aminotransferase (ALT/SGPT) 26 U/L (12-78) Alkaline Phosphatase 84 U/L (45-117) Total Creatine Kinase 79 U/L (26-192) Creatine Kinase MB 2.6 ng/ml (0.5-3.6) Creatine Kinase MB Ratio 3.3 (0-3.0) Troponin I < 0.015 ng/ml (0-0.045) Total Protein 7.6 gm/dl (6.4-8.2) Albumin 3.6 gm/dl (3.4-5.0) Globulin 4.0 gm/dl (2.5-4.0) Albumin/Globulin Ratio 0.9 (0.9-2) Bedside Troponin I 0.020 ng/ml (0-0.045) RX-Vcn-G-Type Natriuretic Peptide 529 pg/ml (0-900) Bedside Prothrombin Time INR 3.5 (0.9-1.1) Arterial Blood pH 7.20 (7.35-7.45) Arterial Blood Partial Pressure CO2 76 mmHg (35-46) Arterial Blood Partial Pressure O2 145 mm/Hg (80-95) Arterial Blood HCO3 29 mmol/L (19-24) Arterial Blood Oxygen Saturation 98.5 % (90-95) Arterial Blood Base Excess -0.5 mEq/L (-9-1.8) Arterial Blood Gas Delivery 5L 100% Moe Test POS (POS) Laboratory results as stated above per my review. Procedure Endotracheal Intubation Indication: Hypoxia. The patient was on 100% oxygen via NRB prior to the procedure. Suction, airway equipment, RSI drugs, respiratory equipment, and appropriate personnel were prepared prior to the initiation of the procedure. A time out was taken. Induction was performed with 20 mg etomidate and 100 mg succ. After observing the clinical benefit of the medications, the airway was easily visualized utilizing a GlideScope. A 7.0 size ETT tube was placed atraumatically to 21 cm from the lips using standard technique. The cuff inflated without signs of malfunction. There were bilateral breath sounds, positive colormetric change, no gastric sounds, a good capnography waveform, and post procedure pulse oximetry was 99%. Post intubation sedation and paralysis was administered using 2 mg Ativan and Propofol. There were no complications. ECG Indication: SOB/dyspnea Rate (beats per minute): 109 Rhythm: sinus tachycardia Findings: LBBB (chronic), no ectopy ED Course 2306: Previous medical records were reviewed. The patient was evaluated in room B1. A complete history and physical examination was performed. 2318: I performed an endotracheal intubation. See procedure note above for details. 2327: Ordered Zosyn 3.375 gm IV, Lasix Inj 40 mg IV, Morphine Sulfate 4 mg IV. 2345: Ordered Nitroglycerin 1 inch EXT, Propofol 1 dose IV. 2338: I discussed the case with Dr. Martini - Nut Grader. 2354: I discussed the case with DrNICHO Brody Hospitalist. The patient will be evaluated for further management. 0007: I reassessed the patient. Medical Decision the differential was considered includes acute myocardial infarction, acute coronary syndrome, myocarditis, pericarditis, pericardial effusions /tamponad, esophageal perforation, pulmonary embolism, pneumonia, pneumothorax, cardiomyopathy, congestive heart, anemia , COPD/asthma exacerbation. This is a 70-year-old female who presents to the ED with a chief complaint of shortness of breath and decreased mental status. The patient was brought in by private vehicle. Upon her evaluation, the patient is obtunded. She is having significant respiratory distress with decreased respiratory effort. The patient was unable to provide any history. Her physical exam reveals rales and poor respiratory effort. The patient's symptoms required immediate intervention with endotracheal intubation. This was performed using 100 mg of succinylcholine and 20 mg of etomidate. Using Glidescope the vocal cords were visualized and a 7.0 endotracheal tube was placed without difficulty taped at 21 cm at the lip line. The patient had oxygen saturations of around 70% prior to intubation. This was with facemask oxygen. Her end-tidal CO2 was around 60 after intubation and pulse ox improved to 100% shortly after intubation. The patient was given 2 mg of IV Ativan for sedation. ABG revealed a pH of 7.2 with a PCO2 of 76 and a PaO2 of 145. INR is 3.0. WBC is 16. Lactate was 2.37. CMP was unremarkable. Troponin was negative. BNP was normal. Chest x- ray revealed findings suggesting acute pulmonary edema and possible consolidation. Endotracheal tube was approximately 3.5 cm above the lalitha. Orogastric tube was below the diaphragm. Antibiotics have been ordered. IV propofol has been ordered for sedation. Patient was also treated with IV morphine and topical nitroglycerin. Lasix 40 mg IV was given. I spoke with the hospitalist as well as the inspector subassembly. The patient will be admitted. Consults Time Called: [phone] Consulting Physician: Dr. Martini - Nut Grader Returned Call: [phone] I discussed the case with him. Additional Consults: Time Called: [phone] Consulted Physician: Dr. Klein [facility] Hospitalist Returned Call: [phone] Additional Comments: I discussed the case with him. The patient will be evaluated for further management. Impression Primary Impression: Acute respiratory failure Additional Impressions: CHF (congestive heart failure) Pneumonia Respiratory acidosis Hypercarbia COPD exacerbation Critical Care I have personally spent greater than 35 minutes of critical care time in the direct management of this patient. This includes bedside care, interpretation of diagnostic studies, and testing, discussion with consultants, patient, and family members, and other required patient management activities. This 35 minutes is in excess of all separately billable procedures. Scribe Attestation The scribe's documentation has been prepared under my direction and personally reviewed by me in its entirety. I confirm that the note above accurately reflects all work, treatment, procedures, and medical decision making performed by me. Departure Information Dispostion Being Evaluated By Hospitalist Referrals RV. Jean Baptiste MD (PCP) Patient Instructions My [facility] Problem Qualifiers
[2016-07-19] MEDS ORDERED: ONDANSETRON INJ 2 MG/ML 2 ML VIAL IV PRN (01:00)
[2016-07-19] MEDS ORDERED: ALUMINUM/MAGNESIUM/SIMETH (MAALOX MAX) 30 ML UDC PO PRN (01:00)
[2016-07-19] MEDS ORDERED: ACETAMINOPHEN 325 MG TAB PO PRN (01:00)
[2016-07-19] MEDS ORDERED: HEPARIN SOD 5000 UNIT/0.5 ML CARP SQ SCH (01:00)
[2016-07-19] MEDS ORDERED: MoRPHine SULFATE 2 MG/ML CARP IV PRN (01:00)
[2016-07-19] MEDS ORDERED: LEVALBUTEROL 1.25MG/0.5ML NEB INH PRN (01:00)
--- NOTE | 2016-07-19 02:02 | History and Physical ---
History & Physical Date & Time of Service: Jul 19, 2016 at 01:40 Chief Complaint: Difficulty Breathing Primary Care Physician: RV. Jean Baptiste MD History of Present Illness Source: hospital records, EMS, other 70 y/o morbidly obese F w/Hx COPD, diastolic CHF and recent admission for B/L PEs 05/24/16. Pt had been progressively SOB throughout the day and presented to the ER hypoxic and in respiratory distress requiring emergent intubation. The pt was unable to provide any further details at the time of admission as she is sedated and intubated. She was recently admitted to the hospital due to B/L PEs and is therapeutic on coumadin at the time of admission. Initial imaging is consistent with pulmonary edema. Past Medical/Surgical History Medical Problems: (1) Diabetes Status: Chronic (2) Hypertension Status: Chronic 3) Hypothyroidism 4) Chronic diastolic CHF - grade 2 - preserved EF on echo 5) HTN 6) HPL 7) Morbid obesity 8) COPD 9) B/L PEs 05/18 10) LBBB Family History Cancer Diabetes mellitus FH: heart disease FHx: lung disease Hypertension Kidney disease Kidney stones Social History Smoking Status: Former Smoker Drug Use: none Marital Status: Housing status: lives with family Occupational Status: retired Immunizations History of Influenza Vaccine: N/A History of Tetanus Vaccine?: Yes History of Pneumococcal: Yes History of Hepatitis B Vaccine: Unknown Multi-Drug Resistant Organisms History of MDRO: No Allergies Coded Allergies: Ibuprofen (Verified Allergy, Intermediate, HIVES, 05/24/16) Lisinopril (Verified Adverse Reaction, Mild, COUGH, 05/24/16) coughing Home Medications Scheduled Alendronate Sodium (Fosamax), 70 MG PO WK Amlodipine Besylate (Amlodipine Besylate), 5 MG PO QAM Aspirin (Aspirin 81), 81 MG PO HS Budesonide/Formoterol Fumarate (Symbicort 160/4.5 Inhaler), 2 PUFFS INH BID Calcium (Caltrate), 600 MG PO DAILY Cholecalciferol (Vitamin D), 3,000 INTER.UNIT PO DAILY Cyanocobalamin (Vitamin B-12), 1,000 MCG PO DAILY Furosemide (Furosemide), 40 MG PO DAILY Guaifenesin Ext Rel (Mucinex Ext Rel), 1,200 MG PO Q12 Insulin Aspart (Novolog Flexpen), 0 UNITS SC ACHS Insulin Human NPH (Novolin N), 130 UNITS SQ QDB Insulin Human NPH (Novolin N), 84 UNITS SQ QDD Ipratropium [place] (Ipratropium [place]), 0.5 MG INH Q4R Labetalol (Normodyne), 800 MG PO QAM Labetalol (Normodyne), 600 MG PO QPM Labetalol Hcl (Normodyne), 600 MG PO HS Levalbuterol (Levalbuterol), 1.25 MG INH Q4R Levothyroxine Sodium (Synthroid), 75 MG PO QAM Levothyroxine Sodium (Synthroid), 200 MG PO QAM Losartan Potassium (Cozaar), 1 TAB PO DAILY Omeprazole (Prilosec), 20 MG PO QAM Oseltamivir Phosphate (Tamiflu), 75 MG PO BID Oxygen (Oxygen), 2 LITERS NA HS Paroxetine (Paxil), 40 MG PO QPM Potassium Chloride (Micro-K Ext Rel), 20 MEQ PO DAILY Prednisone (Prednisone), 60 MG PO DAILY Simvastatin (Zocor), 40 MG PO QPM Warfarin Sod (Coumadin), 5 MG PO DAILY@16 Scheduled PRN Acetaminophen (Tylenol), 650 MG PO Q4H PRN for Pain or Fever Alprazolam (Alprazolam), 0.25 MG PO Q8H PRN for Anxiety/Agitation Ipratropium [place] (Ipratropium [place]), 0.5 MG INH Q2R PRN for SOB/Wheezing Levalbuterol (Levalbuterol), 1.25 MG INH Q2R PRN for SOB/Wheezing Zolpidem Tartrate (Zolpidem Tartrate), 10 MG PO HSZ PRN for Insomnia Review of Systems Cannot obtain - sedated and intubated on arrival Physical Exam Vital Signs Date Time Temp Pulse Resp B/P Pulse Ox O2 Delivery O2 Flow Rate FiO2 07/19/16 01:25 90 18 128/66 100 Mechanical Ventilator 100 07/19/16 01:09 91 17 101/70 99 Mechanical Ventilator 07/19/16 00:33 97 19 96 Mechanical Ventilator 07/19/16 00:32 112/63 07/19/16 00:28 105/68 07/19/16 00:23 98 19 96 Mechanical Ventilator 07/19/16 00:18 110/83 2/16/17 00:13 99 17 95 Mechanical Ventilator 07/19/16 00:08 111/49 07/19/16 00:03 99 19 98 Mechanical Ventilator 07/19/16 00:01 98/71 07/18/16 23:53 102 18 97 Mechanical Ventilator 07/18/16 23:43 106 20 96 Mechanical Ventilator 07/18/16 23:39 180/104 07/18/16 23:35 100 07/18/16 23:34 96 Mechanical Ventilator 100 07/18/16 23:33 36.5 106 20 209/118 92 Mechanical Ventilator 07/18/16 23:30 191/158 07/18/16 23:29 75 Non-Rebreather 15.0 07/18/16 23:23 96 24 98 Mechanical Ventilator 100 07/18/16 23:22 111 07/18/16 23:20 197/114 07/18/16 23:13 113 28 74 Mechanical Ventilator 100 07/18/16 23:08 136/96 07/18/16 23:08 115 40 136/96 33 Nasal Cannula 4.0 General Appearance: + pertinent finding (Morbidly obese elderly F - sedated / intubated) Head: normocephalic, atraumatic Eyes: normal inspection, PERRL, EOMI ENT: + pertinent finding (limited exam due to intubation) Neck: supple, + pertinent finding (Limited exam due to habitus and intubation) Respiratory/Chest: + pertinent finding (poor b/l air entry - possibly b/l crackles however exam is limited due to habitus and vent noise) Cardiovascular: regular rate, rhythm, + pertinent finding (faint heart sounds - reg) Abdomen/GI: normal bowel sounds, non tender, soft Extremities/Musculoskelatal: normal inspection, + pedal edema Neurologic/Psych: + pertinent finding (pupils equal - sluggish - full exam deferred due to propofol use) Skin: warm/dry, + pertinent finding (chronic cellulitic changes of LEs) Diagnostics Laboratory Results Results Past 24 Hours Test 07/18/16 23:10 07/18/16 23:22 07/18/16 23:30 07/19/16 00:00 Range/Units White Blood Count 16.07 4.8-10.8 K/uL Red Blood Count 4.88 4.2-5.4 M/uL Hemoglobin 13.2 12.0-16.0 g/dL Hematocrit 41.2 37-47 % Mean Corpuscular Volume 84.4 80-100 fL Mean Corpuscular Hemoglobin 27.0 25-34 pg Mean Corpuscular Hemoglobin Concent 32.0 32-36 g/dl Platelet Count 330 130-400 K/uL Mean Platelet Volume 10.2 7.4-10.4 fL Neutrophils (%) (Auto) 62.5 % Lymphocytes (%) (Auto) 29.0 % Monocytes (%) (Auto) 5.3 % Eosinophils (%) (Auto) 2.6 % Basophils (%) (Auto) 0.1 % Neutrophils # (Auto) 10.04 1.4-6.5 K/uL Lymphocytes # (Auto) 4.66 1.2-3.4 K/uL Monocytes # (Auto) 0.85 0.11-0.59 K/uL Eosinophils # (Auto) 0.42 0-0.5 K/uL Basophils # (Auto) 0.02 0-0.2 K/uL RDW Standard Deviation 49.7 36.4-46.3 fL RDW Coefficient of Variation 16.1 11.5-14.5 % Immature Granulocyte % (Auto) 0.5 % Immature Granulocyte # (Auto) 0.08 0.00-0.02 K/uL Prothrombin Time 33.2 9.0-12.0 SECONDS Prothromb Time International Ratio 3.0 0.9-1.1 Activated Partial Thromboplast Time 45.0 21.0-31.0 SECONDS Partial Thromboplastin Ratio 1.7 Sodium Level 145 136-145 mmol/L Potassium Level 3.9 3.5-5.1 mmol/L Chloride Level 107 98-107 mmol/L Carbon Dioxide Level 30 21-32 mmol/L Anion Gap 8.0 3-11 mmol/L Blood Urea Nitrogen 11 7-18 mg/dl Creatinine 1.20 0.60-1.20 mg/dl Est Creatinine Clear Calc Drug Dose 71.6 ml/min Estimated GFR () 53.4 Estimated GFR (Non- 46.1 BUN/Creatinine Ratio 8.8 10-20 Random Glucose 161 70-99 mg/dl Calcium Level 8.6 8.5-10.1 mg/dl Total Bilirubin 0.5 0.2-1 mg/dl Aspartate Amino Transf (AST/SGOT) 14 15-37 U/L Alanine Aminotransferase (ALT/SGPT) 26 12-78 U/L Alkaline Phosphatase 84 45-117 U/L Total Creatine Kinase 79 26-192 U/L Creatine Kinase MB 2.6 0.5-3.6 ng/ml Creatine Kinase MB Ratio 3.3 0-3.0 Troponin I < 0.015 0-0.045 ng/ml Total Protein 7.6 6.4-8.2 gm/dl Albumin 3.6 3.4-5.0 gm/dl Globulin 4.0 2.5-4.0 gm/dl Albumin/Globulin Ratio 0.9 0.9-2 Bedside Troponin I 0.020 0-0.045 ng/ml MV-[id number]-[id number]-Type Natriuretic Peptide 529 0-900 pg/ml Bedside Prothrombin Time INR 3.5 0.9-1.1 Arterial Blood pH 7.20 7.35-7.45 Arterial Blood Partial Pressure CO2 76 35-46 mmHg Arterial Blood Partial Pressure O2 145 80-95 mm/Hg Arterial Blood HCO3 29 19-24 mmol/L Arterial Blood Oxygen Saturation 98.5 90-95 % Arterial Blood Base Excess -0.5 -9-1.8 mEq/L Arterial Blood Gas Delivery 5L 100% Moe Test POS POS Microbiology Results 07/18/16 Blood Culture, Received Pending 07/18/16 Blood Culture, Received Pending Diagnostic Radiology CXR consistent with pulmonary edema EKG reg LBBB - nondiagnostic Impression Assessment and Plan 70 y/o morbidly obese F w/Hx COPD, diastolic CHF and recent admission for B/L PEs 05/24/16. Pt had been progressively SOB throughout the day and presented to the ER hypoxic and in respiratory distress requiring emergent intubation. The pt was unable to provide any further details at the time of admission as she is sedated and intubated. She was recently admitted to the hospital due to B/L PEs and is therapeutic on coumadin at the time of admission. Initial imaging is consistent with pulmonary edema. 1) Respiratory distress - likely due to CHF possibly with COPD component - pt intubated on arrival - maintaining sat on vent - admitted to ICU and evaluated by winch truck operator on admission 2) CHF - Lasix dose increased and will monitor Is/Os - will r/o acute event with serial troponins - cont B janes, Cozaar 3) COPD - will treat for exacerbation with nebs, steroids - no clear evidence of infection however she will receive Levaquin as part of COPD Tx 4) DM - sliding scale 5) Hypothyroid - cont synthroid 6) HPL - cont statin 7) Morbid obesity - may benefit from nutrition consult prior to D/C Full code - anticoagulated with coumadin Total time for this admit including discussion with ER attending and winch truck operator - review of labs, imaging, EKG and med rec - including critical care time - 48 min Level of Care Critical Care Resuscitation Status FULL RESUSCITATION VTE Prophylaxis VTE Risk Assessment Done? Y/N: Yes Risk Level: High Given or contraindicated: Warfarin (Coumadin) Note Total Time: Critical Care 30 - 74 minutes
[2016-07-19] MEDS ORDERED: GLUCAGON FOR INJ 1 MG VIAL SQ PRN (02:45)
[2016-07-19] MEDS ORDERED: LEVOFLOXACIN CONSULT ACTIVE PRN (02:45)
[2016-07-19] MEDS ORDERED: DEXTROSE 50% 50 ML SYR IV PRN (02:45)
[2016-07-19] MEDS ORDERED: GLUCOSE 10 TABS/TUBE PO PRN (02:45)
[2016-07-19] MEDS ORDERED: GLUCOSE 40% GEL 15 GM TUBE PO PRN (02:45)
[2016-07-19] MEDS ORDERED: ALBUT/IPRATROP 3MG/0.5MG NEB 3 ML VIAL INH SCH (03:00)
[2016-07-19] MEDS: LEVOFLOXACIN / D5W 750 MG in PREMIXED IN D5W 150 ML IV SCH (03:12)
[2016-07-19] MEDS: METHYLPREDNISOLONE IV 40 MG in SYRINGE 0 ML IV SCH ×4 (03:12→20:48)
[2016-07-19] MEDS ORDERED: PROPOFOL IV EMULSION 10 MG/ML 100 ML VIAL IV PRN (04:30)
[2016-07-19 05:20] LABS: ISTAT ALLEN TEST Pass; ISTAT ARTERIAL BLOOD GAS HCO3 29 meq/L (19-24); ISTAT ARTERIAL BLOOD GAS PCO2 58 mmHg (35-46); ISTAT ARTERIAL BLOOD GAS PO2 93 mmHg (80-95); ISTAT ARTERIAL BLOOD GAS pH 7.31 (7.35-7.45); ISTAT CARBON DIOXIDE 31 mEq/l (24-31); ISTAT DELIVERY SYSTEM Ventilator; ISTAT FIO2 50 %; ISTAT PEEP 15; ISTAT RATE 16; ISTAT SITE R Radial; VE 8.9; Vt 500
[2016-07-19 05:44] LABS: INR 2.8 (0.9-1.1); PROTHROMBIN TIME (PATIENT) 31.8 SECONDS (9.0-12.0)
[2016-07-19] MEDS: LEVOTHYROXINE 200 MCG TAB PO SCH (05:47)
[2016-07-19] MEDS: LEVOTHYROXINE 75 MCG TAB PO SCH (05:47)
[2016-07-19] MEDS: INSULIN ASPART 100 UNITS/ML 3 ML PEN SC SCH ×4 (05:49→20:45)
[2016-07-19] MEDS ORDERED: NITROGLYCERIN OINT 2% 1GM PACKET EXT SCH (06:00)
[2016-07-19 06:59] LABS: ISTAT HEMOGLOBIN 14.3 g/dl (12.0-16.0); ISTAT IONIZED CALCIUM 1.19 mmol/l (1.12-1.32)
[2016-07-19] MEDS: ALBUTEROL HFA 8 GM INHALER INH SCH ×2 (07:17→13:50)
[2016-07-19] MEDS: IPRATROPIUM BROMIDE HFA INHALER INH SCH ×2 (07:17→13:50)
--- NOTE | 2016-07-19 07:31 | DIAGNOSTIC IMAGING REPORT ---
SINGLE VIEW CHEST CLINICAL HISTORY: Respiratory failure. Intubation. FINDINGS: An AP, portable, upright chest radiograph is compared to study dated 06/05/2016. The examination is significantly degraded by portable technique, apical and out of positioning, and large body habitus. An endotracheal tube has been placed. The tip projects at the level of the thoracic inlet approximately 7.5 cm above the lalitha. An enteric tube projects below the diaphragm. The heart is enlarged and there is atherosclerotic calcification of the thoracic aorta. There is pulmonary vascular congestion. There are diffuse bilateral airspace opacities, most confluence in the left midlung and the right upper lobe. This has significantly worsened from 06/05/2016. Pleural effusions are noted. There is no pneumothorax. The skeletal structures are osteopenic. Degenerative change is noted in the thoracic spine. IMPRESSION: 1. An endotracheal tube has been placed. The tip projects at the level of the thoracic inlet approximately 7.5 cm above the lalitha. 2. An enteric tube terminates below the diaphragm. 3. Cardiomegaly with evidence of congestive failure. 4. There are diffuse/multifocal airspace opacities. This could represent pulmonary edema, ARDS, and/or multifocal pneumonia. Clinical correlation will be required. 5. Pleural effusions. Electronically signed by: Jayce Patterson M.D. 07/19/2016 7:29 AM Dictated Date/Time: 07/19/2016 7:26 AM
[2016-07-19] MEDS ORDERED: SUCCINYLCHOLINE CHLORIDE 20 MG/ML 10 ML VIAL IV ONE (07:46)
[2016-07-19] MEDS ORDERED: ETOMIDATE 2 MG/ML 20 ML VIAL IV ONE (07:46)
[2016-07-19] MEDS ORDERED: SODIUM CHLORIDE 0.9% INJ 10 ML VIAL IV ONE (07:46)
[2016-07-19] MEDS ORDERED: LORAZEPAM 2 MG/ML 1 ML VIAL IV ONE (07:46)
[2016-07-19] MEDS: LOSARTAN POTASSIUM 50 MG TAB PO SCH (07:55)
[2016-07-19] MEDS: LABETALOL HCL 200 MG TAB PO SCH ×3 (07:55→20:48)
[2016-07-19] MEDS: AMLODIPINE BESYLATE 5 MG TAB PO SCH (07:56)
[2016-07-19] MEDS: ASPIRIN 81 MG CHEW PO SCH (08:32)
[2016-07-19] MEDS ORDERED: PHARMACY GLYCEMIC MGMT CONSULT PRN (08:45)
[2016-07-19] MEDS ORDERED: GUAIFENESIN 600 MG TABCR PO SCH (09:00)
[2016-07-19] MEDS ORDERED: POTASSIUM CHLORIDE 10 MEQ TABCR PO SCH (09:00)
[2016-07-19] MEDS ORDERED: FUROSEMIDE INJ 40 MG in SYRINGE 0 ML IV SCH (09:00)
[2016-07-19] MEDS ORDERED: ASPIRIN 81 MG ECTAB PO SCH (09:00)
[2016-07-19] MEDS ORDERED: POTASSIUM CHLORIDE 20 MEQ/15 ML UDC PO SCH (09:00)
[2016-07-19] MEDS ORDERED: LACTATED RINGER'S 1000ML 1,000 ML IV ONE (10:15)
[2016-07-19] MEDS ORDERED: MIDAZOLAM HCL 5 MG/ML 1 ML VIAL IV PRN (10:30)
[2016-07-19] MEDS: INSULIN GLARGINE SOLOSTAR 100 UNITS/ML 3 ML PEN SC SCH ×2 (10:40→20:46)
[2016-07-19 11:15] LABS: INFLUENZA A PCR Neg for Influ A (NEG); INFLUENZA B PCR Neg for Influ B (NEG)
--- NOTE | 2016-07-19 11:31 | Critical Care Consultation ---
Critical Care Consultation Date of Consultation: Jul 19, 2016. Attending Physician: King Sheridan MD Reason for Consultation: Hypoxia and Shortness of Breath History of Present Illness Genet Cisneros is a 70-year-old female with extreme morbid obesity who presented with shortness of breath and was found to be hypoxic in the emergency department overnight. Patient's daughter said that she's been suffering from cold symptoms with past 6 days and been taking Mucinex and using home O2 she sleeps with a CPAP at night. Should started to initially feel better until about one hour prior to her arrival emergency department at which time she stated she had increased difficulty breathing. According to records she has a history of COPD despite having no history of smoking per her daughter. However medical records from previous admissions states she was a former smoker. History in the emergency room was limited due to dyspnea with O2 saturations of 70% prior to intubation. In the emergency department she received Zosyn 2.375 g IV, Lasix 40 mg IV, morphine 4 mg IV, nitroglycerin 1 inch. Ultimately she required intubation using the glides scope; she received 20 mg of etomidate and 100 mg of Succ. She was intubated with a size 7.0 ET tube was placed at 21 cm at the lips atraumatically. Post intubation she was given 2 mg of Ativan and propofol. This morning she remained on 40 mcg of propofol for sedation. This hampered the ability to obtain history, thus information here in the history of present illness is obtained from her current and past records. Her granddaughter was present in the room today and did state that her grandmother has a strange behavior in the way that she breaths. She states that after normal inhalation her grandmother exhales very quickly. Upon speaking with nursing about this behavior, I was told that she was also seen stacking breaths on the ventilator overnight. It is my understanding that there is no acute events after her admission to the ICU. She remains afebrile. This morning her troponin has bumped to 0.14, with a lactic acid of 2.37, and WBCs to 16.07. An EKG at 2311 on July 18 demonstrated sinus tachycardia, left bundle branch block, and a QTC of 522. There has been comment that this patient originally had ST elevation however this EKG has not been able to be authenticated/found. Patient's past medical history is positive for diastolic congestive heart failure noted as a grade 2 on her echo in May 2016 with an EF of 50-55%; this also included moderate mitral stenosis. Chronic use of Lasix 40 mg daily at home. She was admitted 05/24/2016 for bilateral pleural emboli and was placed on Coumadin 5mg daily since then, and is therapeutic at time of admission. History of diabetes uses NovoLog and Novolin, hypertension with high doses of BB among other medical managements, hypothyroidism, and dyslipidemia. ROS could not be assessed due to patient's sedation and intubation. Past Medical/Surgical History Medical Problems: Bilateral pulmonary embolism Pneumonia Acute Respiratory Failure Cellulitis CHF exacerbation with Diastolic Dysfunction Diabetes Hypertension Morbid Obesity dyslipidemia Hypothyroidism COPD Diabetes Mellitus Surgical Problems: Hysterectomy in 1994 Cholecystectomy 2004 Family History Cancer Diabetes mellitus FH: heart disease FHx: lung disease Hypertension Kidney disease Kidney stones Social History Smoking Status: Former Smoker (Daughter states she was never a smoke but was exposed to excessive smoke from her spouse's smoking.) Drug Use: none Marital Status: Housing Status: lives with family Occupation Status: retired Allergies Coded Allergies: Ibuprofen (Verified Allergy, Intermediate, HIVES, 05/24/16) Lisinopril (Verified Adverse Reaction, Mild, COUGH, 05/24/16) coughing Home Medications Scheduled Alendronate Sodium (Fosamax), 70 MG PO WK Amlodipine Besylate (Amlodipine Besylate), 5 MG PO QAM Aspirin (Aspirin 81), 81 MG PO HS Budesonide/Formoterol Fumarate (Symbicort 160/4.5 Inhaler), 2 PUFFS INH BID Calcium (Caltrate), 600 MG PO DAILY Cholecalciferol (Vitamin D), 3,000 INTER.UNIT PO DAILY Cyanocobalamin (Vitamin B-12), 1,000 MCG PO DAILY Furosemide (Furosemide), 40 MG PO DAILY Guaifenesin Ext Rel (Mucinex Ext Rel), 1,200 MG PO Q12 Insulin Aspart (Novolog Flexpen), 0 UNITS SC ACHS Insulin Human NPH (Novolin N), 130 UNITS SQ QDB Insulin Human NPH (Novolin N), 84 UNITS SQ QDD Ipratropium [place] (Ipratropium [place]), 0.5 MG INH Q4R Labetalol (Normodyne), 800 MG PO QAM Labetalol (Normodyne), 600 MG PO QPM Labetalol Hcl (Normodyne), 600 MG PO HS Levalbuterol (Levalbuterol), 1.25 MG INH Q4R Levothyroxine Sodium (Synthroid), 75 MG PO QAM Levothyroxine Sodium (Synthroid), 200 MG PO QAM Losartan Potassium (Cozaar), 1 TAB PO DAILY Omeprazole (Prilosec), 20 MG PO QAM Oseltamivir Phosphate (Tamiflu), 75 MG PO BID Oxygen (Oxygen), 2 LITERS NA HS Paroxetine (Paxil), 40 MG PO QPM Potassium Chloride (Micro-K Ext Rel), 20 MEQ PO DAILY Prednisone (Prednisone), 60 MG PO DAILY Simvastatin (Zocor), 40 MG PO QPM Warfarin Sod (Coumadin), 5 MG PO DAILY@16 Scheduled PRN Acetaminophen (Tylenol), 650 MG PO Q4H PRN for Pain or Fever Alprazolam (Alprazolam), 0.25 MG PO Q8H PRN for Anxiety/Agitation Ipratropium [place] (Ipratropium [place]), 0.5 MG INH Q2R PRN for SOB/Wheezing Levalbuterol (Levalbuterol), 1.25 MG INH Q2R PRN for SOB/Wheezing Zolpidem Tartrate (Zolpidem Tartrate), 10 MG PO HSZ PRN for Insomnia Current Inpatient Medications Current Inpatient Medications Medications (Trade) Dose Ordered Sig/Marcelina Route Start Time Stop Time Status Last Admin Dose Admin Acetaminophen (Tylenol Tab) 650 mg Q4H PRN PO 07/19/16 01:00 08/18/16 00:59 Al Hydrox/Mg Hydrox/Simethicone (Maalox Max Susp) 15 ml Q4H PRN PO 07/19/16 01:00 08/18/16 00:59 Ondansetron HCl 4 mg 4 mg Q6H PRN IV 07/19/16 01:00 08/18/16 00:59 Pantoprazole Sodium/Syringe (Protonix Inj/ Syringe) 10 ml @ 5 mls/min DAILY@1100 IV 07/19/16 11:00 08/18/16 10:59 Levalbuterol (Xopenex 1.25MG/ 0.5ML Neb) 1.25 mg Q4H PRN INH 07/19/16 01:00 08/18/16 00:59 Morphine Sulfate (MoRPHine SULFATE INJ) 2 mg Q2H PRN IV 07/19/16 01:00 08/02/16 00:59 Amlodipine Besylate (Norvasc Tab) 5 mg QAM PO 07/19/16 09:00 08/18/16 08:59 07/19/16 07:56 5 MG Labetalol HCl (Normodyne Tab) 600 mg DAILY@1400 PO 07/19/16 14:00 08/18/16 13:59 Labetalol HCl (Normodyne Tab) 800 mg QAM PO 07/19/16 09:00 08/18/16 08:59 07/19/16 07:55 800 MG Labetalol HCl (Normodyne Tab) 600 mg HS PO 07/19/16 21:00 08/18/16 20:59 Levothyroxine Sodium (Synthroid Tab) 75 mcg DAILYBB PO 07/19/16 06:00 08/18/16 05:59 07/19/16 05:47 75 MCG Levothyroxine Sodium (Synthroid Tab) 200 mcg DAILYBB PO 07/19/16 06:00 08/18/16 05:59 07/19/16 05:47 200 MCG Losartan Potassium (coZAAR TAB) 50 mg DAILY PO 07/19/16 09:00 08/18/16 08:59 07/19/16 07:55 50 MG Paroxetine HCl (pAXil TAB) 40 mg QPM PO 07/19/16 21:00 08/18/16 20:59 Simvastatin (Zocor Tab) 40 mg QPM PO 07/19/16 21:00 08/18/16 20:59 Warfarin Sodium 5 mg 5 mg DAILY@16 PO 07/19/16 16:00 08/18/16 15:59 Methylprednisolone Sodium Succinate 40 mg/Syringe 0.64 ml @ 1.5 mls/min Q6H IV 07/19/16 03:00 08/18/16 02:59 07/19/16 07:58 1.5 MLS/MIN Levofloxacin/Prmx (Levaquin / D5W/ Premixed D5W) 150 ml @ 100 mls/hr Q24H IV 07/19/16 03:00 07/26/16 02:59 07/19/16 03:12 100 MLS/HR Insulin Aspart (novoLOG ASPART) SLIDING SCALE G... Q6H SC 07/19/16 06:00 08/18/16 05:59 07/19/16 05:49 2 UNITS Glucose (Glucose 40% Gel) 15-30 GRAMS 15 GRAMS... UD PRN PO 07/19/16 02:45 08/18/16 02:44 Glucose (Glucose Chew Tab) 4-8 Tablets 4 Tabl... UD PRN PO 07/19/16 02:45 08/18/16 02:44 Dextrose (Dextrose 50% 50ML Syringe) 25-50ML OF 50% DW IV FOR... UD PRN IV 07/19/16 02:45 08/18/16 02:44 Glucagon (Glucagon Inj) 1 mg UD PRN SQ 07/19/16 02:45 08/18/16 02:44 Levofloxacin (Consult) 1 ea UD PRN N/A 07/19/16 02:45 08/18/16 02:44 Ipratropium [place] (Atrovent Hfa Inhaler) 4 puffs Q6R INH 07/19/16 09:00 08/18/16 08:59 07/19/16 07:17 4 PUFFS Albuterol (Ventolin Hfa Inhaler) 4 puffs Q6R INH 07/19/16 09:00 08/18/16 08:59 07/19/16 07:17 4 PUFFS Aspirin (Aspirin Chew) 81 mg QAM PO 07/19/16 09:00 08/18/16 08:59 07/19/16 08:32 81 MG Miscellaneous Information (Consult Glycemic Management Pharmacy) 1 ea UD PRN N/A 07/19/16 08:45 08/18/16 08:44 Insulin Glargine 25 unit 25 unit BID SC 07/19/16 09:00 08/18/16 08:59 Lactated Ringer's 1,000 ml @ 999 mls/hr Q1H1M ONCE IV 07/19/16 10:15 07/19/16 11:15 Parenteral Electrolyte Solution (Normosol R) 1,000 ml @ 100 mls/hr Q10H IV 07/19/16 10:15 08/18/16 10:14 Midazolam HCl (Versed Inj) 2 mg Q1H PRN IV 07/19/16 10:30 08/18/16 10:29 UNV Review of Systems Unable to obtain ROS due to patient condition secondary to intubation and sedation. Physical Exam Date Time Temp Pulse Resp B/P Pulse Ox O2 Delivery O2 Flow Rate FiO2 07/19/16 10:31 40 07/19/16 08:00 Mechanical Ventilator 40 07/19/16 08:00 40 07/19/16 08:00 37.3 69 18 151/70 95 Mechanical Ventilator 40 07/19/16 07:17 40 07/19/16 06:00 36.7 80 18 134/68 96 Mechanical Ventilator 50 07/19/16 05:12 50 07/19/16 04:00 94 Mechanical Ventilator 50 07/19/16 04:00 36.7 91 21 133/86 94 Mechanical Ventilator 50 07/19/16 04:00 50 07/19/16 02:27 50 07/19/16 02:05 80 07/19/16 02:00 91 20 142/101 97 Mechanical Ventilator 50 07/19/16 02:00 100 07/19/16 01:42 36.6 89 20 142/101 40 Mechanical Ventilator 07/19/16 01:25 90 18 128/66 100 Mechanical Ventilator 100 07/19/16 01:09 91 17 101/70 99 Mechanical Ventilator 07/19/16 00:33 97 19 96 Mechanical Ventilator 07/19/16 00:32 112/63 07/19/16 00:28 105/68 07/19/16 00:23 98 19 96 Mechanical Ventilator 07/19/16 00:18 110/83 07/19/16 00:13 99 17 95 Mechanical Ventilator 07/19/16 00:08 111/49 07/19/16 00:03 99 19 98 Mechanical Ventilator 07/19/16 00:01 98/71 07/18/16 23:53 102 18 97 Mechanical Ventilator 07/18/16 23:43 106 20 96 Mechanical Ventilator 07/18/16 23:39 180/104 07/18/16 23:35 100 07/18/16 23:34 96 Mechanical Ventilator 100 07/18/16 23:33 36.5 106 20 209/118 92 Mechanical Ventilator 07/18/16 23:30 191/158 07/18/16 23:29 75 Non-Rebreather 15.0 07/18/16 23:23 96 24 98 Mechanical Ventilator 100 2/15/17 23:22 111 07/18/16 23:20 197/114 07/18/16 23:13 113 28 74 Mechanical Ventilator 100 07/18/16 23:08 136/96 07/18/16 23:08 115 40 136/96 33 Nasal Cannula 4.0 Vital Signs - as noted Laboratory Data - as noted Physical Exam: General -intubated and sedated on 40 mg propofol, extreme morbid obesity noted Eyes - PE sluggish to respond to light, No icterus, gaze conjugate ENT - Mucosa moist, no lesions or candidiasis Neck - Supple, trachea midline, no masses or lymphadenopathy, no JVD or bruits Lungs - No paradoxical chest wall movement, diminished to auscultation bilaterally, slight wheezing noted to mid left field, no rales or rhonchi were appreciated Heart - Reg rate and rhythm, No murmur, rubs, clicks, or gallops appreciated Abdomen - BS present, no bruits noted, tympanic to percussion, soft, nontender, nondistended, no organomegaly, grossly obese abdomen, vertical hysterectomy scars noted Extremities - No edema, pedal pulses intact Neuro - A&OX0, Sedated to Rass -3 CN:Pupile Equal and sluggish to respond to light, no facial asymmetry Laboratory Results Last 24 Hours Test 07/18/16 23:10 07/18/16 23:18 07/18/16 23:22 07/18/16 23:23 White Blood Count 16.07 K/uL Red Blood Count 4.88 M/uL Hemoglobin 13.2 g/dL Hematocrit 41.2 % Mean Corpuscular Volume 84.4 fL Mean Corpuscular Hemoglobin 27.0 pg Mean Corpuscular Hemoglobin Concent 32.0 g/dl Platelet Count 330 K/uL Mean Platelet Volume 10.2 fL Neutrophils (%) (Auto) 62.5 % Lymphocytes (%) (Auto) 29.0 % Monocytes (%) (Auto) 5.3 % Eosinophils (%) (Auto) 2.6 % Basophils (%) (Auto) 0.1 % Neutrophils # (Auto) 10.04 K/uL Lymphocytes # (Auto) 4.66 K/uL Monocytes # (Auto) 0.85 K/uL Eosinophils # (Auto) 0.42 K/uL Basophils # (Auto) 0.02 K/uL RDW Standard Deviation 49.7 fL RDW Coefficient of Variation 16.1 % Immature Granulocyte % (Auto) 0.5 % Immature Granulocyte # (Auto) 0.08 K/uL Prothrombin Time 33.2 SECONDS Prothromb Time International Ratio 3.0 Activated Partial Thromboplast Time 45.0 SECONDS Partial Thromboplastin Ratio 1.7 Sodium Level 145 mmol/L Potassium Level 3.9 mmol/L Chloride Level 107 mmol/L Carbon Dioxide Level 30 mmol/L Anion Gap 8.0 mmol/L 18.0 mmol/L Blood Urea Nitrogen 11 mg/dl Creatinine 1.20 mg/dl Est Creatinine Clear Calc Drug Dose 71.6 ml/min Estimated GFR () 53.4 Estimated GFR (Non- 46.1 BUN/Creatinine Ratio 8.8 Random Glucose 161 mg/dl Calcium Level 8.6 mg/dl Total Bilirubin 0.5 mg/dl Aspartate Amino Transf (AST/SGOT) 14 U/L Alanine Aminotransferase (ALT/SGPT) 26 U/L Alkaline Phosphatase 84 U/L Total Creatine Kinase 79 U/L Creatine Kinase MB 2.6 ng/ml Creatine Kinase MB Ratio 3.3 Troponin I < 0.015 ng/ml Total Protein 7.6 gm/dl Albumin 3.6 gm/dl Globulin 4.0 gm/dl Albumin/Globulin Ratio 0.9 Bedside Lactic Acid Venous 2.37 mmol/L Bedside Troponin I 0.020 ng/ml [id number] Natriuretic Peptide 529 pg/ml Bedside Hemoglobin 14.3 g/dl Bedside Hematocrit 42 % Bedside Sodium 144 mEq/L Bedside Potassium 3.8 mEq/L Bedside Chloride 104 mEq/L Bedside Total CO2 26 mEq/l Bedside Blood Urea Nitrogen 11 mg/dl Bedside Creatinine 1.0 mg/dl Bedside Glucose (other) 176 mg/dl Bedside Ionized Calcium (Gurwinder) 1.19 mmol/l Test 07/18/16 23:30 07/19/16 00:00 07/19/16 05:08 07/19/16 05:19 Bedside Prothrombin Time INR 3.5 Arterial Blood pH 7.20 Arterial Blood Partial Pressure CO2 76 mmHg Arterial Blood Partial Pressure O2 145 mm/Hg Arterial Blood HCO3 29 mmol/L Arterial Blood Oxygen Saturation 98.5 % Arterial Blood Base Excess -0.5 mEq/L Arterial Blood Gas Delivery 5L 100% Moe Test POS Pass Blood Gas Sample Site R Radial Bedside Blood Gas pH (LAB) 7.31 Bedside Blood Gas pCO2 (LAB) 58 mmHg Bedside Blood Gas pO2 (LAB) 93 mmHg Bedside Blood Gas HCO3 (LAB) 29 meq/L Bedside Blood Gas Total CO2 31 mEq/l Bedside Blood Gas Base Excess (LAB) 3.0 meq/L Bedside Blood Gas O2 Saturation 96.0 % Oxygen Delivery Device Ventilator Bedside Oxygen Rate (breaths/min) 16 Blood Gas Minute Ventilation 8.9 Bedside FiO2 50 % Blood Gas Tidal Volume 500 Blood Gas PEEP 15 Prothrombin Time 31.8 SECONDS Prothromb Time International Ratio 2.8 Test 07/19/16 05:40 07/19/16 06:53 07/19/16 09:15 Bedside Glucose 231 mg/dl Troponin I 0.140 ng/ml Diagnostic Results SINGLE VIEW CHEST CLINICAL HISTORY: Respiratory failure. Intubation. FINDINGS: An AP, portable, upright chest radiograph is compared to study dated 06/05/2016. The examination is significantly degraded by portable technique, apical and out of positioning, and large body habitus. An endotracheal tube has been placed. The tip projects at the level of the thoracic inlet approximately 7.5 cm above the lalitha. An enteric tube projects below the diaphragm. The heart is enlarged and there is atherosclerotic calcification of the thoracic aorta. There is pulmonary vascular congestion. There are diffuse bilateral airspace opacities, most confluence in the left midlung and the right upper lobe. This has significantly worsened from 06/05/2016. Pleural effusions are noted. There is no pneumothorax. The skeletal structures are osteopenic. Degenerative change is noted in the thoracic spine. IMPRESSION: 1. An endotracheal tube has been placed. The tip projects at the level of the thoracic inlet approximately 7.5 cm above the lalitha. 2. An enteric tube terminates below the diaphragm. 3. Cardiomegaly with evidence of congestive failure. 4. There are diffuse/multifocal airspace opacities. This could represent pulmonary edema, ARDS, and/or multifocal pneumonia. Clinical correlation will be required. 5. Pleural effusions. Electronically signed by: Jayce Patterson M.D. 07/19/2016 7:29 AM Dictated Date/Time: 07/19/2016 7:26 AM Assessment & Plan (1) Hypoxia (2) Acute respiratory failure (3) CHF (congestive heart failure) (4) COPD exacerbation (5) CHF exacerbation (6) Diabetes (7) Hypertension Reason Critically Ill: Patient is a 70-year-old female who is transferred to the ICU for increasing dyspnea. Patient was hypoxic in the ED at 70% O2 saturations; after intubation O2 saturations went 100%. Currently we are suspicious for a combination of CHF versus COPD exacerbation. Her BNP in the emergency room was 529 and her chest x-ray does look like that of congestion. However we will also following a lactic acid of 2.37 and the possibility of a COPD exacerbation versus pneumonia. PLAN: Neuro: * Attempt sedation vacation with plan to possibly extubate after weaning trial today * 2 mg Ativan every hour when necessary for agitation Resp: Patient follows with Dr. Bonilla for pulmonology * Weaning trial today; patient placed on CPAP. At approximately 1430 patient has been on 5 over 5 CPAP for approximately 45 minutes and tolerating well * Repeat gas in 1 hour * Continue respiratory regimen * Methylprednisolone continue today 40 mg every 6 hours; will change to twice a day tomorrow * Continue albuterol every 6 hours * Continue Atrovent every 6 hours * Antibiotic coverage continue Levaquin 750 mg every 24 hours * Obtain bilateral lower extremity venous duplex CV: Currently heart rate is running 80 to 90s systolic 130s to 140s Bump in troponin 0.14 now 0.273; therapeutic INR Patient follows with Dr. Wharton for cardiology * Discontinue Nitropaste * Trend troponin * Obtain ECHO today * Continue home medications Norvasc, labetalol, aspirin 81 mg * Monitor on telemetry Fluids/Renal: Creatinine bumped to 1.2 now down to 1.0 Patient currently 1.4 L negative * 1 L lactated ringer now; sodium bumped to 144 * Normosol 100 mL per hour * Goals remain negative fluid balance daily * Discontinue Lasix today with plan to restart home dosing tomorrow * Shocked I's and O's * I will daily labs ID: Lactic acid on admission 2.37; now 1.5 Per calcitonin 0.18 Afebrile, WBCs 16.07 * Rule out possible sites of infection * Obtain UA * Blood cultures pending * Repeat chest x-ray in morning * Continue Levaquin 750 mg every 24 hours IV GI/Nutrition: Currently intubated, nothing by mouth except meds No BM this admission * Continue Protonix for stress prophylaxis Heme: H&H stable 13.2/41.2; platelets 330; PTT 31.8, INR 2.8 No overt signs of bleeding * Patient therapeutic * Monitor daily labs Endocrine: Diabetes type 2 and hypothyroidism Glucose range 176-231 * Continue sliding scale insulin * Accu-Checks per protocol, started insulin infusion for 2 blood sugars greater than 180 * Continue Synthroid CCT: 45 Minutes; This time is exclusive of all separately billable procedures. Thank you for involving us in the care of this patient. Please refer to Dr. Darby Martini's addendum for further recommendations. I have personally evaluated and examined this patient. I agree with assessment and plan of Sumit Eddy PA-C. I personally saw the patient at 1 AM until 2 AM on 07/19/2016 in the emergency department. Patient had improved upon my repeat evaluation at bedside rounds at 10 AM. Were able to successfully extubate the patient. The etiology of her hypoxic respiratory failure remains to be completely elucidated. I am not convinced that this is a P or congestive heart failure exacerbation, the patient 's BNP was not profoundly elevated, however she did have significant hypertension. ACS is also in differential, however she is therapeutic on her INR for bilateral pulmonary emboli. Her venous duplex was negative, this was obtained as if there was a large clot in the lower extremity she may benefit from a IVC filter. Her troponins continue to elevate, but she is not having any outward signs of cardiac ischemia, she is not hypotensive, nor is she experiencing arrhythmias. At this time I believe the leading diagnosis is COPD exacerbation complicated by likely pulmonary hypertension secondary to chronic thromboembolic disease, she has been placed on Levaquin which will also cover for urinary pathogens as well as his probable COPD exacerbation. Additional critical care time to that listed above is 60 minutes for a total of 105 minutes
[2016-07-19] MEDS: NORMOSOL R 1,000 ML IV SCH ×2 (11:41→20:47)
[2016-07-19] MEDS: PANTOprazole INJ 40 MG in SYRINGE 0 ML IV SCH (11:41)
[2016-07-19 12:11] LABS: URINE APPEARANCE CLEAR (CLEAR); URINE BILIRUBIN NEG (NEG); URINE COLOR YELLOW; URINE NITRITE NEG (NEG); URINE SPECIFIC GRAVITY 1.004 (1.000-1.030); UROBILINOGEN NEG (NEG)
[2016-07-19 12:21] LABS: MANUAL MICROSCOPIC REQUIRED? NO; REVIEW REQ? NO
--- NOTE | 2016-07-19 14:14 | Progress Note ---
Subjective Date of Service: Jul 19, 2016. Subjective Pt evaluation today including: physical exam, chart review, lab review, review of studies, review of inpatient medication list Problem List Medical Problems: (1) Acute respiratory failure Status: Acute (2) Bilateral lower leg cellulitis Status: Acute (3) CHF (congestive heart failure) Status: Acute (4) COPD exacerbation Status: Acute (5) Dyspnea Status: Acute (6) Fluid overload Status: Acute (7) Hypercarbia Status: Acute (8) Left leg cellulitis Status: Acute (9) Lump in throat Status: Acute (10) Morbid obesity Status: Acute (11) Pneumonia Status: Acute (12) Respiratory acidosis Status: Acute (13) Shortness of breath Status: Acute Review of Systems ROS are unobtainable Objective Vital Signs Date Time Temp Pulse Resp B/P Pulse Ox O2 Delivery O2 Flow Rate FiO2 07/19/16 13:29 40 07/19/16 12:00 40 07/19/16 12:00 Mechanical Ventilator 40 07/19/16 12:00 37.6 75 23 178/83 94 Mechanical Ventilator 40 07/19/16 11:04 40 07/19/16 10:31 40 07/19/16 10:00 70 16 168/72 96 Mechanical Ventilator 40 07/19/16 08:00 Mechanical Ventilator 40 07/19/16 08:00 40 07/19/16 08:00 37.3 69 18 151/70 95 Mechanical Ventilator 40 07/19/16 07:17 40 07/19/16 06:00 36.7 80 18 134/68 96 Mechanical Ventilator 50 07/19/16 05:12 50 07/19/16 04:00 94 Mechanical Ventilator 50 07/19/16 04:00 36.7 91 21 133/86 94 Mechanical Ventilator 50 07/19/16 04:00 50 07/19/16 02:27 50 07/19/16 02:05 80 07/19/16 02:00 91 20 142/101 97 Mechanical Ventilator 50 07/19/16 02:00 100 07/19/16 01:42 36.6 89 20 142/101 40 Mechanical Ventilator 07/19/16 01:25 90 18 128/66 100 Mechanical Ventilator 100 07/19/16 01:09 91 17 101/70 99 Mechanical Ventilator 07/19/16 00:33 97 19 96 Mechanical Ventilator 07/19/16 00:32 112/63 2/16/17 00:28 105/68 07/19/16 00:23 98 19 96 Mechanical Ventilator 07/19/16 00:18 110/83 07/19/16 00:13 99 17 95 Mechanical Ventilator 07/19/16 00:08 111/49 07/19/16 00:03 99 19 98 Mechanical Ventilator 07/19/16 00:01 98/71 07/18/16 23:53 102 18 97 Mechanical Ventilator 07/18/16 23:43 106 20 96 Mechanical Ventilator 07/18/16 23:39 180/104 07/18/16 23:35 100 07/18/16 23:34 96 Mechanical Ventilator 100 07/18/16 23:33 36.5 106 20 209/118 92 Mechanical Ventilator 07/18/16 23:30 191/158 07/18/16 23:29 75 Non-Rebreather 15.0 07/18/16 23:23 96 24 98 Mechanical Ventilator 100 07/18/16 23:22 111 07/18/16 23:20 197/114 07/18/16 23:13 113 28 74 Mechanical Ventilator 100 07/18/16 23:08 136/96 07/18/16 23:08 115 40 136/96 33 Nasal Cannula 4.0 Physical Exam General Appearance: + pertinent finding (morbidly obese) Respiratory/Chest: + decreased breath sounds, + crackles Cardiovascular: regular rate, rhythm, no edema, + gallop/S3 Abdomen: non tender, soft Neurologic/Psychiatric: + pertinent finding (intubated / sedated) Laboratory Results Last 24 Hours Test 07/18/16 23:10 07/18/16 23:18 07/18/16 23:22 07/18/16 23:23 White Blood Count 16.07 K/uL Red Blood Count 4.88 M/uL Hemoglobin 13.2 g/dL Hematocrit 41.2 % Mean Corpuscular Volume 84.4 fL Mean Corpuscular Hemoglobin 27.0 pg Mean Corpuscular Hemoglobin Concent 32.0 g/dl Platelet Count 330 K/uL Mean Platelet Volume 10.2 fL Neutrophils (%) (Auto) 62.5 % Lymphocytes (%) (Auto) 29.0 % Monocytes (%) (Auto) 5.3 % Eosinophils (%) (Auto) 2.6 % Basophils (%) (Auto) 0.1 % Neutrophils # (Auto) 10.04 K/uL Lymphocytes # (Auto) 4.66 K/uL Monocytes # (Auto) 0.85 K/uL Eosinophils # (Auto) 0.42 K/uL Basophils # (Auto) 0.02 K/uL RDW Standard Deviation 49.7 fL RDW Coefficient of Variation 16.1 % Immature Granulocyte % (Auto) 0.5 % Immature Granulocyte # (Auto) 0.08 K/uL Prothrombin Time 33.2 SECONDS Prothromb Time International Ratio 3.0 Activated Partial Thromboplast Time 45.0 SECONDS Partial Thromboplastin Ratio 1.7 Sodium Level 145 mmol/L Potassium Level 3.9 mmol/L Chloride Level 107 mmol/L Carbon Dioxide Level 30 mmol/L Anion Gap 8.0 mmol/L 18.0 mmol/L Blood Urea Nitrogen 11 mg/dl Creatinine 1.20 mg/dl Est Creatinine Clear Calc Drug Dose 71.6 ml/min Estimated GFR () 53.4 Estimated GFR (Non- 46.1 BUN/Creatinine Ratio 8.8 Random Glucose 161 mg/dl Calcium Level 8.6 mg/dl Total Bilirubin 0.5 mg/dl Aspartate Amino Transf (AST/SGOT) 14 U/L Alanine Aminotransferase (ALT/SGPT) 26 U/L Alkaline Phosphatase 84 U/L Total Creatine Kinase 79 U/L Creatine Kinase MB 2.6 ng/ml Creatine Kinase MB Ratio 3.3 Troponin I < 0.015 ng/ml Total Protein 7.6 gm/dl Albumin 3.6 gm/dl Globulin 4.0 gm/dl Albumin/Globulin Ratio 0.9 Bedside Lactic Acid Venous 2.37 mmol/L Bedside Troponin I 0.020 ng/ml [id number] Natriuretic Peptide 529 pg/ml Bedside Hemoglobin 14.3 g/dl Bedside Hematocrit 42 % Bedside Sodium 144 mEq/L Bedside Potassium 3.8 mEq/L Bedside Chloride 104 mEq/L Bedside Total CO2 26 mEq/l Bedside Blood Urea Nitrogen 11 mg/dl Bedside Creatinine 1.0 mg/dl Bedside Glucose (other) 176 mg/dl Bedside Ionized Calcium (Gurwinder) 1.19 mmol/l Test 07/18/16 23:30 07/19/16 00:00 07/19/16 05:08 07/19/16 05:19 Bedside Prothrombin Time INR 3.5 Arterial Blood pH 7.20 Arterial Blood Partial Pressure CO2 76 mmHg Arterial Blood Partial Pressure O2 145 mm/Hg Arterial Blood HCO3 29 mmol/L Arterial Blood Oxygen Saturation 98.5 % Arterial Blood Base Excess -0.5 mEq/L Arterial Blood Gas Delivery 5L 100% Moe Test POS Pass Blood Gas Sample Site R Radial Bedside Blood Gas pH (LAB) 7.31 Bedside Blood Gas pCO2 (LAB) 58 mmHg Bedside Blood Gas pO2 (LAB) 93 mmHg Bedside Blood Gas HCO3 (LAB) 29 meq/L Bedside Blood Gas Total CO2 31 mEq/l Bedside Blood Gas Base Excess (LAB) 3.0 meq/L Bedside Blood Gas O2 Saturation 96.0 % Oxygen Delivery Device Ventilator Bedside Oxygen Rate (breaths/min) 16 Blood Gas Minute Ventilation 8.9 Bedside FiO2 50 % Blood Gas Tidal Volume 500 Blood Gas PEEP 15 Prothrombin Time 31.8 SECONDS Prothromb Time International Ratio 2.8 Test 07/19/16 05:40 07/19/16 06:53 07/19/16 09:15 07/19/16 11:15 Bedside Glucose 231 mg/dl 274 mg/dl Troponin I 0.140 ng/ml Influenza Type A (RT-PCR) Neg for Influ A Influenza Type B (RT-PCR) Neg for Influ B Test 07/19/16 11:30 07/19/16 13:00 Urine Color YELLOW Urine Appearance CLEAR Urine pH 5.0 Urine Specific [place] 1.004 Urine Protein NEG Urine Glucose (UA) NEG Urine Ketones NEG Urine Occult Blood 1+ Urine Nitrite NEG Urine Bilirubin NEG Urine Urobilinogen NEG Urine Leukocyte Esterase TRACE Urine WBC (Auto) 1-5 /hpf Urine RBC (Auto) 5-10 /hpf Urine Hyaline Casts (Auto) 1-5 /lpf Urine Epithelial Cells (Auto) 5-10 /lpf Urine Bacteria (Auto) NEG Lactic Acid Level 1.5 mmol/L Troponin I 0.273 ng/ml Assessment and Plan 70 years old woman , recently treated for DVT / PE admitted with acute SOB and hypoxic respiratory failure Acute hypoxic respiratory failure , multi factorial , continue VENT support, critical care consult appreciated COPD exacerbation, continue steroids/bronchodilators underlying possible bronchitis/ continue levofloxacin acute on chronic diastolic CHF exacerbation, cont B janes, Cozaar, received lasix on admission, currently off lasix and oxygenating well DM - sliding scale Hypothyroid - cont synthroid HPL - cont statin full code, on Coumadin, INR is therapeutic * Echo 05/2016 -- Conclusions -- * Extremely limited study as the apatient is sitting up for study. * Left ventricular systolic function is normal. * Ejection Fraction = 50-55%. * The left ventricular wall motion is normal. * The RV is poorly visualized. In the Limitted views the RVOT portion does not seem dilated. * Additionally the interventricular septum does NOT appeared flattened. * Can not assess RV function. * There is severe mitral annular calcification. * Moderate mitral stenosis secondary to MAC (MG 5 mm/hg) * Diastolic dysfunction, Grade II (pseudonormalization pattern). * Elevated E to e' ratio. * There is trace tricuspid regurgitation. Could not assess PA pressures.
--- NOTE | 2016-07-19 14:49 | Pharmacy Progress Note ---
Glycemic Control Intl Consult Date of Service Jul 19, 2016. Scope Glycemic Pharmacist consulted by Dr Martini on 07/19/16 for glycemic control and to write orders per [facility] inpatient glycemic control protocol. Objective Weight (Kilograms): 155.100 Accuchecks BSG (last 24hrs): Test 07/18/16 23:10 07/19/16 05:40 07/19/16 11:15 Random Glucose 161 mg/dl (70-99) Bedside Glucose 231 mg/dl (70-90) 274 mg/dl (70-90) Laboratory Data (last 24hrs) Test 07/18/16 23:10 07/18/16 23:23 Anion Gap 8.0 mmol/L 18.0 mmol/L BUN/Creatinine Ratio 8.8 Blood Urea Nitrogen 11 mg/dl Creatinine 1.20 mg/dl Potassium Level 3.9 mmol/L Sodium Level 145 mmol/L White Blood Count 16.07 K/uL Red Blood Count 4.88 M/uL Hemoglobin 13.2 g/dL Hematocrit 41.2 % Mean Corpuscular Volume 84.4 fL Mean Corpuscular Hemoglobin 27.0 pg Mean Corpuscular Hemoglobin Concent 32.0 g/dl Platelet Count 330 K/uL Mean Platelet Volume 10.2 fL Neutrophils (%) (Auto) 62.5 % Lymphocytes (%) (Auto) 29.0 % Monocytes (%) (Auto) 5.3 % Eosinophils (%) (Auto) 2.6 % Basophils (%) (Auto) 0.1 % Neutrophils # (Auto) 10.04 K/uL Lymphocytes # (Auto) 4.66 K/uL Monocytes # (Auto) 0.85 K/uL Eosinophils # (Auto) 0.42 K/uL Basophils # (Auto) 0.02 K/uL HbA1c Item Value Date Time Hemoglobin A1c 7.3 % H 04/06/16 1036 Recent Pertinent Medications Outpatient Anti-diabetic Regimen: * NPH 130 units QAM, 84 units QPM * Novolog SSI ACHS * A1c = 7.3 % 04/06/16 Risk Factors for Insulin Resistance: * Steroids: SoluMedrol 40mg IV q6h --> reduce to q12h tomorrow * Infection: Levaquin IV for COPD exacerbation * IVF: Normosol-R @ 100mL/hr * Diet: NPO * Mechanical Ventilation: YES Assessment & Plan ASSESSMENT: * Patient is a 70yo diabetic female familiar to the pharmacy glycemic mgmt service from past admissions. * Patient uses large doses of insulin as an outpatient (250+ units/day). * Patient has been hyperglycemic today thus far (231, 274). * Will initiate Lantus/Novolog somewhat conservatively, as patient has not required as much insulin as an inpatient in the past. * For now, will utilize the insulin calculator and dose based on weight rather than based on home doses. * ADA & AACE recommend a goal blood sugar range 140-180 mg/dl for the majority of critically ill & non-critically ill patients. However, more stringent targets may be selected in individual cases. PLAN FOR INPATIENT GLYCEMIC CONTROL: * Basal insulin with LANTUS 25 units SQ BID * give 1/2 dose for BSGs less than 120mg/dL * Correctional Insulin with NOVOLOG per scale q4h for now, in order to provide more continuous coverage * Goal Range: Low 140 mg/dL - High 180 mg/dL * Correction Factor: 20 mg/dL/unit * Nutritional / Prandial insulin will be added when patient is extubated and diet is advanced * Please note that the plan above was derived based on current level of insulin resistance and hospital stress. These recommendations are appropriate for inpatient admission only. Plan of care upon discharge will need to be reassessed to avoid potential outpatient hypo/hyperglycemia. Thank you.
--- NOTE | 2016-07-19 15:29 | DIAGNOSTIC IMAGING REPORT ---
ULTRASOUND BILATERAL LOWER EXTREMITY VENOUS CLINICAL HISTORY: Lower extremity edema. COMPARISON STUDY: Bilateral lower extremity venous ultrasound dated 05/24/2016. TECHNIQUE: Real-time, grayscale, and color Doppler sonography of the deep veins of the right and left lower extremity was performed from the inguinal crease to the calf. Compression and augmentation were utilized. The examination is degraded by large body habitus. FINDINGS: There is no sonographic evidence of deep venous thrombosis identified in the right or left lower extremity. The common femoral, superficial femoral, and popliteal veins are patent and normally compressible bilaterally. The greater saphenous vein and the profunda femoris vein at the junction with the common femoral vein are clear in both legs. The visualized calf veins are patent bilaterally. Soft tissue edema is present in both legs. IMPRESSION: There is no sonographic evidence of deep venous thrombosis identified in the right or left lower extremity. Electronically signed by: Jayce Patterson M.D. 07/19/2016 3:27 PM Dictated Date/Time: 07/19/2016 3:27 PM
[2016-07-19] MEDS: WARFARIN SOD 5 MG TAB PO SCH (16:59)
--- NOTE | 2016-07-19 18:46 | ECHOCARDIOGRAM REPORT ---
*NOTICE TO RECEIVING REPUBL[employer] AGENCY This information is strictly Confidential and protected under [place] law. [place] law prohibits you from making any further disclosure of this information unless further disclosure is expressly permitted by the written consent of the person to whom it pertains or is authorized by law. A general authorization for the release of medical or other information is not sufficient for this purpose. Hospital accepts no responsibility if the information is made available to any other person, INCLUDING THE PATIENT. Interpretation Summary * Conclusions -- * 1. Mildly dilated left ventricle with normal systolic function. EF 55-60%. No regional wall motion abnormalities. Mild concentric left ventricular hypertrophy. * 2. The left atrium is mildly dilated. * 3. Turbulent flow across the mitral valve, suggesting mild stenosis, possibly from the severe mitral annular calcification * 4. There is mild mitral regurgitation. * 5. Mild aortic stenosis. * 6. Technically difficult study, enhanced with IV Definity. * 7. No significant change from prior study on 05/25/2016. Procedure Details * A complete two-dimensional transthoracic echocardiogram was performed (2D, M-mode, Doppler and color flow Doppler). * The study was technically difficult. * There were technical limitations due to patient'ssupine positioning while on mechanical ventilation * A contrast injection of Definity was performed to improve assessment of LV function. * Contrast was injected into an intravenous site in the right arm. * One vial of Definity ultrasound contrast was diluted in normal saline to a total volume of 10 ml. A total of '2' ml of solution was administered during imaging. * Lot # [id number] of Definity utilized for procedure. * Expiration date JUL 21. * The attending nurse who injected the contrast agent was DANIEL QUESADA RN. Left Ventricle * Mildly dilated left ventricle with normal systolic function. EF 55-60%. No regional wall motion abnormalities. Mild concentric left ventricular hypertrophy. Right Ventricle * Right ventricle not well visualized but appears mildly dilated in limited views. * The right ventricular systolic function is normal as assessed by tricuspid annular plane systolic excursion (TAPSE) (normal >1.5 cm). * The right ventricular systolic function is normal. Atria * The left atrium is mildly dilated. * Right atrium not well visualized. * Inter atrial septum not well visualized. Mitral Valve * There is severe mitral annular calcification. * Mitral leaflets appear grossly normal. * Turbulent flow across the mitral valve, suggesting mild stenosis, possibly from the severe mitral annular calcification * There is mild mitral regurgitation. Tricuspid Valve * The tricuspid valve is not well visualized. Aortic Valve * The aortic valve is not well visualized. * Mild valvular aortic stenosis. * There is no significant aortic regurgitation. Pulmonic Valve * The pulmonic valve is not well visualized. * There is no pulmonic valvular stenosis. Great Vessels * The aortic root is not well visualized. Pericardium/Pleural * There is no pericardial effusion. Great Vessels * IVC not well visualized. MMode 2D Measurements and Calculations IVSd 1.2 cm IVSs 1.8 cm LVIDd 5.7 cm LVPWd 1.2 cm LVPWs 1.8 cm IVS/LVPW 10 EDV(Teich) 161.6 ml EDV(cubed) 187.5 ml % IVS thick 54.4 % % LVPW thick 51.6 % LV mass(C)d 286.6 grams LV mass(C)dI 113.0 grams/m\S\2 LA dimension 4.4 cm LVOT diam 2.0 cm LVOT area 3.3 cm\S\2 LVAd ap4 34.6 cm\S\2 LVLd ap4 8.2 cm EDV(MOD-sp4) 121.7 ml EDV(sp4-el) 123.5 ml LVAs ap4 21.2 cm\S\2 LVLs ap4 6.8 cm ESV(MOD-sp4) 54.5 ml ESV(sp4-el) 56.1 ml EF(MOD-sp4) 55.2 % EF(sp4-el) 54.6 % LVAd ap2 39.3 cm\S\2 LVLd ap2 8.4 cm EDV(MOD-sp2) 152.5 ml EDV(sp2-el) 156.0 ml LVAs ap2 22.2 cm\S\2 LVLs ap2 6.6 cm ESV(MOD-sp2) 61.6 ml ESV(sp2-el) 63.5 ml EF(MOD-sp2) 59.6 % EF(sp2-el) 59.3 % LVLd %diff 2.1 % EDV(MOD-bp) 137.6 ml LVLs %diff -3.45 % ESV(MOD-bp) 58.8 ml EF(MOD-bp) 57.3 % SV(MOD-sp4) 67.2 ml SI(MOD-sp4) 26.5 ml/m\S\2 SV(MOD-sp2) 90.9 ml SI(MOD-sp2) 35.8 ml/m\S\2 SV(MOD-bp) 78.8 ml SI(MOD-bp) 31.1 ml/m\S\2 SV(sp4-el) 67.5 ml SI(sp4-el) 26.6 ml/m\S\2 SV(sp2-el) 92.5 ml SI(sp2-el) 36.4 ml/m\S\2 Doppler Measurements and Calculations MV E max duong 151.6 cm/sec MV A max duong 182.8 cm/sec MV E/A 0.83 MV V2 max 207.2 cm/sec MV max PG 17.2 mmHg MV V2 mean 138.7 cm/sec MV mean PG 8.6 mmHg MV V2 VTI 43.7 cm MVA(VTI) 2.5 cm\S\2 MV P1/2t max duong 187.2 cm/sec MV P1/2t 67.8 msec MVA(P1/2t) 3.2 cm\S\2 MV dec slope 808.5 cm/sec\S\2 MV dec time 0.26 sec Ao V2 max 213.5 cm/sec Ao max PG 18.2 mmHg Ao max PG (full) 11.9 mmHg Ao V2 mean 142.7 cm/sec Ao mean PG 9.3 mmHg Ao mean PG (full) 6.0 mmHg Ao V2 VTI 44.9 cm BLAISE(I,A) 2.4 cm\S\2 BLAISE(I,D) 2.4 cm\S\2 BLAISE(V,A) 1.9 cm\S\2 BLAISE(V,D) 1.9 cm\S\2 LV V1 max PG 6.3 mmHg LV V1 mean PG 3.3 mmHg LV V1 max 125.8 cm/sec LV V1 mean 83.2 cm/sec LV V1 VTI 33.1 cm MR max duong 528.8 cm/sec MR max PG 111.9 mmHg SV(LVOT) 108.2 ml SI(LVOT) 42.6 ml/m\S\2
[2016-07-19] MEDS: ALBUT/IPRATROP 3MG/0.5MG NEB 3 ML VIAL INH SCH ×2 (19:01→23:33)
[2016-07-19] MEDS: PAROXETINE 20 MG TAB PO SCH (20:49)
[2016-07-19] MEDS: SIMVASTATIN 40 MG TAB PO SCH (20:49)
[2016-07-20] VITALS (16 sets, daily range): BP systolic 135–189; BP diastolic 51–91; PULSE 61–81; TEMP 36.8–37; O2SAT 89–98
[2016-07-20] MEDS: LEVOFLOXACIN / D5W 750 MG in PREMIXED IN D5W 150 ML IV SCH (03:16)
[2016-07-20] MEDS: ALBUT/IPRATROP 3MG/0.5MG NEB 3 ML VIAL INH SCH ×5 (03:21→19:00)
[2016-07-20] MEDS: INSULIN ASPART 100 UNITS/ML 3 ML PEN SC SCH ×7 (04:11→23:31)
[2016-07-20 06:01] LABS: COMPLETE YES; HEMATOCRIT 34.6 % (37-47); IG% 0.4 %; LYMPH % 8.3 %; LYMPH ABS # 0.85 K/uL (1.2-3.4); MEAN CELL VOLUME 82.4 fL (80-100); MEAN CORPUSCULAR HEMOGLOBIN 26.9 pg (25-34); MEAN CORPUSCULAR HGB CONC 32.7 g/dl (32-36); MEAN PLATELET VOLUME 10.4 fL (7.4-10.4); MONO % 5.9 %; NEUT % 85.4 %; PLATELET COUNT 225 K/uL (130-400)
[2016-07-20] MEDS: LEVOTHYROXINE 75 MCG TAB PO SCH (06:02)
[2016-07-20] MEDS: LEVOTHYROXINE 200 MCG TAB PO SCH (06:02)
[2016-07-20 06:13] LABS: ESTIMATED AVERAGE GLUCOSE 163 mg/dl; HA1C FLAG Normal (Normal)
[2016-07-20 06:32] LABS: BUN/CREATININE RATIO 16.5 (10-20); CALCIUM 8.2 mg/dl (8.5-10.1); CREATININE 1.1 mg/dl (0.60-1.20); POTASSIUM 4.1 mmol/L (3.5-5.1)
[2016-07-20 06:36] LABS: ALB/GLOB RATIO 0.8 (0.9-2); PHOSPHORUS 2.6 mg/dl (2.5-4.9)
[2016-07-20] MEDS: LABETALOL HCL 200 MG TAB PO SCH ×3 (07:47→20:39)
[2016-07-20] MEDS: METHYLPREDNISOLONE IV 40 MG in SYRINGE 0 ML IV SCH ×2 (07:47→20:38)
[2016-07-20] MEDS: AMLODIPINE BESYLATE 5 MG TAB PO SCH (07:48)
[2016-07-20] MEDS: NORMOSOL R 1,000 ML IV SCH (07:48)
[2016-07-20] MEDS: LOSARTAN POTASSIUM 50 MG TAB PO SCH (07:48)
[2016-07-20] MEDS: ASPIRIN 81 MG CHEW PO SCH (07:48)
--- NOTE | 2016-07-20 07:56 | Critical Care Progress Note ---
Critical Care Progress Note Date of Service Jul 20, 2016. ICU Day ICU Day Number: [address] Lianet Jin Genet Cisneros is a 70-year-old morbidly obese female who presented with increasing shortness of breath with cold symptoms. She requires CPAP at home for obstructive sleep apnea; but no other O2 use. She was initially intubated, extubation occurred yesterday without issue. She remained on BiPAP mainly since extubation with adequate saturations. Today we have removed BiPAP and returned her to the oxy-mask; currently at 3 L. She complains of no pain, no shortness of breath, abdominal pain secondary to chronic dry cough. She states she feels warm but not feverish. She remained afebrile this admission with a MAXIMUM TEMPERATURE of 37.6 at noon on July 19. She has no acute complaints today. She denies shortness of breath, fever, chills, nausea, urinary irritation, or numbness or tingling of extremities. Objective Vital Signs - as noted Laboratory Data - as noted Physical Exam: General - NAD resting on side with BiPap in place at 15/5 & 40% Eyes - PERRL, EOMI No icterus, gaze conjugate ENT - Mucosa moist dry, no lesions or candidiasis Neck - Supple, trachea midline, no masses or lymphadenopathy, no JVD or bruits Lungs - No paradoxical chest wall movement, diminished and coarse to auscultation bilaterally, intermittent wheezes, No rales, or rhonchi Heart - Reg rate and rhythm, No murmur, rubs, clicks, or gallops appreciated Abdomen - BS present, no bruits noted, tympanic to percussion, soft, nontender, nondistended, no organomegaly, morbidly obese abd Extremities - Mild Non-pitting edema, evidence of PVD in both calves, clean without drainage, pedal pulses intact Neuro - A&O X 4 Strength extremities equal and appropriate bilaterally Reflexes: Bicep, brachioradialis, patellar, and plantar normal and equal CN:PERRL, EOMI, no facial asymmetry, uvula/tongue midline Assessment & Plan (1) Hypoxia (2) Acute respiratory failure (3) CHF (congestive heart failure) (4) COPD exacerbation (5) CHF exacerbation (6) Diabetes (7) Hypertension Reason Critically Ill: Patient is a 70-year-old female who is transferred to the ICU for increasing dyspnea with hypoxia in the ED at 70% O2 saturations; after intubation O2 saturations went 100%. Possible combination of CHF versus COPD exacerbation. Her BNP in the emergency room was 529 and her chest x-ray does look like that of congestion. PLAN: Neuro: Pain free, monitor Resp: Patient follows with Dr. Bonilla for pulmonology; Negative bilateral lower extremity venous duplex * Removed BiPap this morning; Provide Oxy-Mask @3L Goal O2 88-92 secondary to COPD * Continue respiratory regimen * Taper Methylprednisolone 40 mg BID today * Continue Duoneb q4hrs * Antibiotic coverage continue Levaquin 750 mg every 24 hours, Day 2 CV: Currently heart rate is running 60's systolic 150s Troponin trended down Patient follows with Dr. Wharton for cardiology ECHO 07/19: Mildly dilated left ventricle with normal systolic function 55-60%; no regional wall motion abnormalities, mild concentric left ventricular hypertrophy. Left atrium mildly dilated; turbulent flow across mitral valve, mild mitral stenosis, severe mitral annular calcification with mitral regurg, mild aortic stenosis. * Restart home Lasix; K 4.1 Now Repeat K Lab after Lasix to determine need for replacement K * Continue home medications Norvasc, labetalol, aspirin 81 mg * Monitor on telemetry Fluids/Renal: Creatinine 1.1 Patient currently Even I's & O's L: Goal negative * D/C Normosol, Diet Resumed * Goals remain negative fluid balance daily * Continue Home medication Losartan * Restarting home lasix * Follow Daily Labs ID: Lactic acid on admission 2.37; now 1.6 Procalcitonin 0.18 Afebrile, WBCs 10.3 (trending down) * Continue Levaquin 750 mg every 24 hours IV GI/Nutrition: * Resumed DM2/AHA Diet Mechanical Soft, Pt does not have her dentures * Monitor for Constipation, No BM this admission. Consider starting bowel regimen if no BM by tomorrow AM Heme: H&H 11.3/34.6; platelets 225 No overt signs of bleeding * Monitor daily labs Endocrine: Diabetes type 2 and hypothyroidism Glucose range 255-277 * Continue sliding scale insulin & Lantus 30U BID, Monitor Closely Diet Restarted * Consider Insulin Infusion * Accu-Checks per protocol * Continue Synthroid MSK: * PT/OT Consult * OOB to Chair q shift DVT: No SCD's 2/2 PVD on calves, Continue Warfarin 5mg q Daily Access: 2 PIV in AC Bilaterally in place; No indication for central access at this time CCT: 0 Minutes; Level 3 inpatient billing. This time is exclusive of all separately billable procedures. Thank you for involving us in the care of this patient. Please refer to Dr. Darby Martini's addendum for further recommendations. I have personally evaluated and examined this patient. I agree with assessment and plan of Sumit Eddy PA-C. Patient remains extubated up and out of bed into chair today already. Patient able to speak in complete sentences significant improvement. We will continue to treat his COPD exacerbation day 2 of Levaquin. We will restart home diuretics continue to normalize. Stable for downgraded to telemetry. Consults & Procedures Procedures: Intubated: 07/18/16 Extubated: 07/19/16 Data Medications: Current Inpatient Medications Medications (Trade) Dose Ordered Sig/Marcelina Route Start Time Stop Time Status Last Admin Dose Admin Acetaminophen (Tylenol Tab) 650 mg Q4H PRN PO 07/19/16 01:00 08/18/16 00:59 Al Hydrox/Mg Hydrox/Simethicone (Maalox Max Susp) 15 ml Q4H PRN PO 07/19/16 01:00 08/18/16 00:59 Ondansetron HCl 4 mg 4 mg Q6H PRN IV 07/19/16 01:00 08/18/16 00:59 Pantoprazole Sodium/Syringe (Protonix Inj/ Syringe) 10 ml @ 5 mls/min DAILY@1100 IV 07/19/16 11:00 08/18/16 10:59 07/19/16 11:41 5 MLS/MIN Levalbuterol (Xopenex 1.25MG/ 0.5ML Neb) 1.25 mg Q4H PRN INH 07/19/16 01:00 08/18/16 00:59 Morphine Sulfate (MoRPHine SULFATE INJ) 2 mg Q2H PRN IV 07/19/16 01:00 08/02/16 00:59 Amlodipine Besylate (Norvasc Tab) 5 mg QAM PO 07/19/16 09:00 08/18/16 08:59 07/20/16 07:48 5 MG Labetalol HCl (Normodyne Tab) 600 mg DAILY@1400 PO 07/19/16 14:00 08/18/16 13:59 07/19/16 13:38 600 MG Labetalol HCl (Normodyne Tab) 800 mg QAM PO 07/19/16 09:00 08/18/16 08:59 07/20/16 07:47 800 MG Labetalol HCl (Normodyne Tab) 600 mg HS PO 07/19/16 21:00 08/18/16 20:59 07/19/16 20:48 600 MG Levothyroxine Sodium (Synthroid Tab) 75 mcg DAILYBB PO 07/19/16 06:00 08/18/16 05:59 07/20/16 06:02 75 MCG Levothyroxine Sodium (Synthroid Tab) 200 mcg DAILYBB PO 07/19/16 06:00 08/18/16 05:59 07/20/16 06:02 200 MCG Losartan Potassium (coZAAR TAB) 50 mg DAILY PO 07/19/16 09:00 08/18/16 08:59 07/20/16 07:48 50 MG Paroxetine HCl (pAXil TAB) 40 mg QPM PO 07/19/16 21:00 08/18/16 20:59 07/19/16 20:49 40 MG Simvastatin (Zocor Tab) 40 mg QPM PO 07/19/16 21:00 08/18/16 20:59 07/19/16 20:49 40 MG Warfarin Sodium 5 mg 5 mg DAILY@16 PO 07/19/16 16:00 08/18/16 15:59 07/19/16 16:59 5 MG Levofloxacin/Prmx (Levaquin / D5W/ Premixed D5W) 150 ml @ 100 mls/hr Q24H IV 07/19/16 03:00 07/26/16 02:59 07/20/16 03:16 100 MLS/HR Glucose (Glucose 40% Gel) 15-30 GRAMS 15 GRAMS... UD PRN PO 07/19/16 02:45 08/18/16 02:44 Glucose (Glucose Chew Tab) 4-8 Tablets 4 Tabl... UD PRN PO 07/19/16 02:45 08/18/16 02:44 Dextrose (Dextrose 50% 50ML Syringe) 25-50ML OF 50% DW IV FOR... UD PRN IV 07/19/16 02:45 08/18/16 02:44 Glucagon (Glucagon Inj) 1 mg UD PRN SQ 07/19/16 02:45 08/18/16 02:44 Levofloxacin (Consult) 1 ea UD PRN N/A 07/19/16 02:45 08/18/16 02:44 Aspirin (Aspirin Chew) 81 mg QAM PO 07/19/16 09:00 08/18/16 08:59 07/20/16 07:48 81 MG Miscellaneous Information 1 ea 1 ea UD PRN N/A 07/19/16 08:45 08/18/16 08:44 Parenteral Electrolyte Solution (Normosol R) 1,000 ml @ 100 mls/hr Q10H IV 07/19/16 10:15 08/18/16 10:14 07/20/16 07:48 100 MLS/HR Midazolam HCl 2 mg 2 mg Q1H PRN IV 07/19/16 10:30 08/18/16 10:29 Methylprednisolone Sodium Succinate/ Syringe (Solu-Medrol IV/ Syringe) 0.64 ml @ 1.5 mls/min Q12H IV 07/20/16 08:00 08/19/16 07:59 07/20/16 07:47 1.5 MLS/MIN Insulin Aspart (novoLOG ASPART) SLIDING SCALE G... Q4H SC 07/19/16 16:00 08/18/16 15:59 07/20/16 07:51 7 UNITS Albuterol/ Ipratropium (Duoneb) 3 ml Q4R INH 07/19/16 16:00 08/18/16 15:59 07/20/16 07:40 3 ML Insulin Glargine (Lantus Solostar Pen) 30 unit BID SC 07/20/16 09:00 08/19/16 08:59 07/20/16 07:49 30 UNIT I & O: 24-Hour Column 07/20/16 07:59 Intake Total 3169 ml Output Total 3450 ml Balance -281 ml Vital Signs: Date Time Temp Pulse Resp B/P Pulse Ox O2 Delivery O2 Flow Rate FiO2 07/20/16 06:00 61 148/82 95 BiPAP 40 61 07/20/16 04:00 37.0 61 135/51 96 BiPAP 40 61 07/20/16 04:00 98 BiPAP 40 07/20/16 03:22 62 96 40 07/20/16 03:21 62 16 96 BiPAP/CPAP 40 07/20/16 02:00 61 139/58 94 BiPAP 40 61 07/20/16 00:00 94 BiPAP 40 07/20/16 00:00 36.9 66 137/60 94 BiPAP 40 66 07/19/16 23:33 65 16 95 BiPAP/CPAP 40 07/19/16 22:30 65 97 40 07/19/16 22:00 37.0 65 20 150/73 94 BiPAP 40 65 07/19/16 20:00 92 5.0 07/19/16 19:09 65 96 40 07/19/16 19:07 65 16 96 BiPAP/CPAP 40 07/19/16 19:00 67 18 161/66 96 BiPAP 40 07/19/16 18:00 69 22 143/69 94 BiPAP 07/19/16 16:00 94 BiPAP 07/19/16 16:00 37.1 73 22 156/81 94 BiPAP 40 07/19/16 14:00 37.5 74 20 150/78 96 Mechanical Ventilator 40 07/19/16 13:29 40 07/19/16 12:00 40 07/19/16 12:00 Mechanical Ventilator 40 07/19/16 12:00 37.6 75 23 178/83 94 Mechanical Ventilator 40 07/19/16 11:04 40 07/19/16 10:31 40 07/19/16 10:00 70 16 168/72 96 Mechanical Ventilator 40 07/19/16 08:00 Mechanical Ventilator 40 07/19/16 08:00 40 07/19/16 08:00 37.3 69 18 151/70 95 Mechanical Ventilator 40 Laboratory Results: Last 24 Hours Test 07/19/16 09:15 07/19/16 11:15 07/19/16 11:30 07/19/16 13:00 Influenza Type A (RT-PCR) Neg for Influ A Influenza Type B (RT-PCR) Neg for Influ B Bedside Glucose 274 mg/dl Urine Color YELLOW Urine Appearance CLEAR Urine pH 5.0 Urine Specific [place] 1.004 Urine Protein NEG Urine Glucose (UA) NEG Urine Ketones NEG Urine Occult Blood 1+ Urine Nitrite NEG Urine Bilirubin NEG Urine Urobilinogen NEG Urine Leukocyte Esterase TRACE Urine WBC (Auto) 1-5 /hpf Urine RBC (Auto) 5-10 /hpf Urine Hyaline Casts (Auto) 1-5 /lpf Urine Epithelial Cells (Auto) 5-10 /lpf Urine Bacteria (Auto) NEG Lactic Acid Level 1.5 mmol/L Troponin I 0.273 ng/ml Procalcitonin 0.18 ng/mL Test 07/19/16 16:45 07/19/16 19:11 07/19/16 20:42 07/19/16 23:41 Bedside Glucose 260 mg/dl 252 mg/dl 252 mg/dl Troponin I 0.202 ng/ml Test 07/20/16 04:07 07/20/16 04:54 07/20/16 05:45 Bedside Glucose 255 mg/dl Lactic Acid Level 1.6 mmol/L White Blood Count 10.30 K/uL Red Blood Count 4.20 M/uL Hemoglobin 11.3 g/dL Hematocrit 34.6 % Mean Corpuscular Volume 82.4 fL Mean Corpuscular Hemoglobin 26.9 pg Mean Corpuscular Hemoglobin Concent 32.7 g/dl Platelet Count 225 K/uL Mean Platelet Volume 10.4 fL Neutrophils (%) (Auto) 85.4 % Lymphocytes (%) (Auto) 8.3 % Monocytes (%) (Auto) 5.9 % Eosinophils (%) (Auto) 0.0 % Basophils (%) (Auto) 0.0 % Neutrophils # (Auto) 8.80 K/uL Lymphocytes # (Auto) 0.85 K/uL Monocytes # (Auto) 0.61 K/uL Eosinophils # (Auto) 0.00 K/uL Basophils # (Auto) 0.00 K/uL RDW Standard Deviation 49.1 fL RDW Coefficient of Variation 16.2 % Immature Granulocyte % (Auto) 0.4 % Immature Granulocyte # (Auto) 0.04 K/uL Sodium Level 143 mmol/L Potassium Level 4.1 mmol/L Chloride Level 104 mmol/L Carbon Dioxide Level 28 mmol/L Anion Gap 11.0 mmol/L Blood Urea Nitrogen 18 mg/dl Creatinine 1.10 mg/dl Est Creatinine Clear Calc Drug Dose 75.7 ml/min Estimated GFR () 59.3 Estimated GFR (Non- 51.2 BUN/Creatinine Ratio 16.5 Random Glucose 277 mg/dl Estimated Average Glucose 163 mg/dl Hemoglobin A1c 7.3 % Calcium Level 8.2 mg/dl Phosphorus Level 2.6 mg/dl Magnesium Level 2.0 mg/dl Total Bilirubin 0.5 mg/dl Aspartate Amino Transf (AST/SGOT) 17 U/L Alanine Aminotransferase (ALT/SGPT) 20 U/L Alkaline Phosphatase 57 U/L Total Protein 6.1 gm/dl Albumin 2.7 gm/dl Globulin 3.4 gm/dl Albumin/Globulin Ratio 0.8
[2016-07-20] MEDS ORDERED: INSULIN GLARGINE SOLOSTAR 100 UNITS/ML 3 ML PEN SC SCH (09:00)
[2016-07-20] MEDS: PANTOprazole INJ 40 MG in SYRINGE 0 ML IV SCH (11:08)
[2016-07-20] MEDS: FUROSEMIDE 40 MG TAB PO SCH (11:08)
[2016-07-20] MEDS ORDERED: INSULIN GLARGINE SOLOSTAR 100 UNITS/ML 3 ML PEN SC STA (13:38)
--- NOTE | 2016-07-20 14:05 | Pharmacy Progress Note ---
Glycemic: Assessment & Plan Date of Service Jul 20, 2016. Assessment & Plan Outpatient Anti-diabetic Regimen: * NPH 130 units QAM, 84 units QPM * Novolog SSI ACHS * A1c = 7.3 % 04/06/16 Risk Factors for Insulin Resistance: * Steroids: SoluMedrol 40mg IV q12h (reduced from q6h this morning) * Infection: Levaquin IV for COPD exacerbation * IVF: D/C Normosol, start Lasix PO * Diet: NPO --> advanced to Type 2 diabetic/AHA/mech soft diet today * Mechanical Ventilation: no Assessment & Plan ASSESSMENT: * Patient is a 70yo diabetic female with significant morbid obesity (BMI 53.8kg/ m2) who is familiar to the pharmacy glycemic mgmt service from past admissions. * Patient uses large doses of insulin as an outpatient (250+ units/day). * Lantus/Novolog initiated somewhat conservatively, as patient has not required nearly as much insulin as an inpatient in the past. * Patient remains significantly hyperglycemic overnight and thus far today ( BSGs ranging from 252 - 277mg/dL). * Lantus dose increased by 20% this morning and correctional parameters tightened, with no improvement pre-lunch today. * Supplemental dose of Lantus x1 dose and continue to titrate upward. * Add CHO ratio for prandial coverage now that diet has been advanced. * ADA & AACE recommend a goal blood sugar range 140-180 mg/dl for the majority of critically ill & non-critically ill patients. However, more stringent targets may be selected in individual cases. PLAN FOR INPATIENT GLYCEMIC CONTROL: * Basal insulin with LANTUS SQ BID * Give additional 20 units x1 dose JUAN ANTONIO * Lantus dosing guided by BSGs: For BSG less than 120mg/dL ------ Lantus 15 units SQ For BSG 120 - 180 mg/dL --------- Lantus 25 units SQ For BSG greater than 180 mg/dL -- Lantus 35 units SQ * Correctional Insulin with NOVOLOG per scale ACHS plus 00 & 04, in order to provide more continuous coverage * Goal Range: Low 140 mg/dL - High 180 mg/dL * Correction Factor: 15 mg/dL/unit * Nutritional / Prandial insulin: 1 unit per 5 gm CHO consumed * Please note that the plan above was derived based on current level of insulin resistance and hospital stress. These recommendations are appropriate for inpatient admission only. Plan of care upon discharge will need to be reassessed to avoid potential outpatient hypo/hyperglycemia. Thank you.
--- NOTE | 2016-07-20 15:47 | Progress Note ---
Subjective Date of Service: Jul 20, 2016. Subjective Pt evaluation today including: conversation w/ patient, physical exam, chart review, lab review, review of inpatient medication list Problem List Medical Problems: (1) Acute respiratory failure Status: Acute (2) Bilateral lower leg cellulitis Status: Acute (3) CHF (congestive heart failure) Status: Acute (4) COPD exacerbation Status: Acute (5) Dyspnea Status: Acute (6) Fluid overload Status: Acute (7) Hypercarbia Status: Acute (8) Left leg cellulitis Status: Acute (9) Lump in throat Status: Acute (10) Morbid obesity Status: Acute (11) Pneumonia Status: Acute (12) Respiratory acidosis Status: Acute (13) Shortness of breath Status: Acute Review of Systems Constitutional: No chills, No fatigue, No fever, No problem reported, No see HPI, No sweats, No weakness, No weight loss Respiratory: + shortness of breath Cardiac: No PND, No chest pain, No claudication, No edema, No orthopnea, No palpitations, No problem reported, No see HPI Abdomen: No GI bleeding, No constipation, No diarrhea, No nausea, No pain, No problem reported, No see HPI, No vomiting Objective Vital Signs Date Time Temp Pulse Resp B/P Pulse Ox O2 Delivery O2 Flow Rate FiO2 07/20/16 15:24 72 16 93 Nasal Cannula 4.0 07/20/16 12:00 Nasal Cannula 2.0 07/20/16 12:00 36.8 64 24 165/72 92 Nasal Cannula 4.0 07/20/16 11:53 72 16 93 Nasal Cannula 4.0 07/20/16 10:00 68 22 171/77 93 Nasal Cannula 4.0 07/20/16 08:00 5.0 07/20/16 08:00 Mask 07/20/16 08:00 36.9 70 25 189/91 90 5.0 07/20/16 07:40 75 16 94 Mask 5.0 07/20/16 06:00 61 148/82 95 BiPAP 40 61 07/20/16 04:00 37.0 61 135/51 96 BiPAP 40 61 07/20/16 04:00 98 BiPAP 40 07/20/16 03:22 62 96 40 07/20/16 03:21 62 16 96 BiPAP/CPAP 40 07/20/16 02:00 61 139/58 94 BiPAP 40 61 07/20/16 00:00 94 BiPAP 40 07/20/16 00:00 36.9 66 137/60 94 BiPAP 40 66 07/19/16 23:33 65 16 95 BiPAP/CPAP 40 07/19/16 22:30 65 97 40 07/19/16 22:00 37.0 65 20 150/73 94 BiPAP 40 65 07/19/16 20:00 92 5.0 07/19/16 19:09 65 96 40 07/19/16 19:07 65 16 96 BiPAP/CPAP 40 07/19/16 19:00 67 18 161/66 96 BiPAP 40 07/19/16 18:00 69 22 143/69 94 BiPAP 07/19/16 16:00 94 BiPAP 07/19/16 16:00 37.1 73 22 156/81 94 BiPAP 40 Physical Exam General Appearance: + mild distress Eyes: normal inspection, EOMI ENT: normal ENT inspection, hearing grossly normal Neck: supple Respiratory/Chest: + decreased breath sounds, + crackles Cardiovascular: regular rate, rhythm, no edema, no gallop, no JVD Abdomen: normal bowel sounds, non tender, soft Extremities: normal range of motion, non-tender, normal inspection, no pedal edema Neurologic/Psychiatric: web retailer II-XII nml as tested, no motor/sensory deficits, alert, normal mood/affect, oriented x 3 Skin: normal color, warm/dry, no rash Laboratory Results Last 24 Hours Test 07/19/16 16:45 07/19/16 19:11 07/19/16 20:42 07/19/16 23:41 Bedside Glucose 260 mg/dl 252 mg/dl 252 mg/dl Troponin I 0.202 ng/ml Test 07/20/16 04:07 07/20/16 04:54 07/20/16 05:45 07/20/16 10:32 Bedside Glucose 255 mg/dl 257 mg/dl Lactic Acid Level 1.6 mmol/L White Blood Count 10.30 K/uL Red Blood Count 4.20 M/uL Hemoglobin 11.3 g/dL Hematocrit 34.6 % Mean Corpuscular Volume 82.4 fL Mean Corpuscular Hemoglobin 26.9 pg Mean Corpuscular Hemoglobin Concent 32.7 g/dl Platelet Count 225 K/uL Mean Platelet Volume 10.4 fL Neutrophils (%) (Auto) 85.4 % Lymphocytes (%) (Auto) 8.3 % Monocytes (%) (Auto) 5.9 % Eosinophils (%) (Auto) 0.0 % Basophils (%) (Auto) 0.0 % Neutrophils # (Auto) 8.80 K/uL Lymphocytes # (Auto) 0.85 K/uL Monocytes # (Auto) 0.61 K/uL Eosinophils # (Auto) 0.00 K/uL Basophils # (Auto) 0.00 K/uL RDW Standard Deviation 49.1 fL RDW Coefficient of Variation 16.2 % Immature Granulocyte % (Auto) 0.4 % Immature Granulocyte # (Auto) 0.04 K/uL Sodium Level 143 mmol/L Potassium Level 4.1 mmol/L Chloride Level 104 mmol/L Carbon Dioxide Level 28 mmol/L Anion Gap 11.0 mmol/L Blood Urea Nitrogen 18 mg/dl Creatinine 1.10 mg/dl Est Creatinine Clear Calc Drug Dose 75.7 ml/min Estimated GFR () 59.3 Estimated GFR (Non- 51.2 BUN/Creatinine Ratio 16.5 Random Glucose 277 mg/dl Estimated Average Glucose 163 mg/dl Hemoglobin A1c 7.3 % Calcium Level 8.2 mg/dl Phosphorus Level 2.6 mg/dl Magnesium Level 2.0 mg/dl Total Bilirubin 0.5 mg/dl Aspartate Amino Transf (AST/SGOT) 17 U/L Alanine Aminotransferase (ALT/SGPT) 20 U/L Alkaline Phosphatase 57 U/L Total Protein 6.1 gm/dl Albumin 2.7 gm/dl Globulin 3.4 gm/dl Albumin/Globulin Ratio 0.8 Test 07/20/16 12:14 07/20/16 15:23 Potassium Level 4.4 mmol/L Assessment and Plan 70 years old woman , recently treated for DVT / PE admitted with acute SOB and hypoxic respiratory failure Acute hypoxic respiratory failure , multi factorial , S/P successful extubation , critical care consult appreciated, can be transferred to telemetry COPD exacerbation, continue steroids/bronchodilators (solu medrol titrated down) underlying possible bronchitis/ continue levofloxacin acute on chronic diastolic CHF exacerbation, cont B janes, Cozaar,currently oral lasix and oxygenating well on nasal cannula DM - sliding scale Hypothyroid - cont synthroid HPL - cont statin full code, on Coumadin, INR is therapeutic Order labs for am repeat CXR PT/OT * Echo 05/2016 -- Conclusions -- * Extremely limited study as the apatient is sitting up for study. * Left ventricular systolic function is normal. * Ejection Fraction = 50-55%. * The left ventricular wall motion is normal. * The RV is poorly visualized. In the Limitted views the RVOT portion does not seem dilated. * Additionally the interventricular septum does NOT appeared flattened. * Can not assess RV function. * There is severe mitral annular calcification. * Moderate mitral stenosis secondary to MAC (MG 5 mm/hg) * Diastolic dysfunction, Grade II (pseudonormalization pattern). * Elevated E to e' ratio. * There is trace tricuspid regurgitation. Could not assess PA pressures.
[2016-07-20 16:01] LABS: INR 2.3 (0.9-1.1); PROTHROMBIN TIME (PATIENT) 25.6 SECONDS (9.0-12.0)
[2016-07-20] MEDS: WARFARIN SOD 5 MG TAB PO SCH (16:26)
--- NOTE | 2016-07-20 16:44 | DIAGNOSTIC IMAGING REPORT ---
CHEST ONE VIEW PORTABLE CLINICAL HISTORY: SOB dyspnea COMPARISON STUDY: 07/18/2016 FINDINGS: Interval extubation. Persistent findings of pulmonary edema. Parenchymal infiltrative changes slightly improved. Diaphragms remain smooth. IMPRESSION: 1. Interval extubation. 2. Pulmonary edema slightly improved radiographically from the prior study. Electronically signed by: Bharat Kitchen M.D. 07/20/2016 4:43 PM Dictated Date/Time: 07/20/2016 4:42 PM
[2016-07-20 16:53] LABS: URINE APPEARANCE CLEAR (CLEAR); URINE BILIRUBIN NEG (NEG); URINE COLOR YELLOW; URINE EPITHELIAL CELL AUTO >30 /lpf (0-5); URINE NITRITE NEG (NEG); URINE PH 5.5 (4.5-7.5); URINE SPECIFIC GRAVITY 1.018 (1.000-1.030); UROBILINOGEN NEG (NEG); ZZURINE CULT IF INDIC CATH YES
[2016-07-20 16:55] LABS: MANUAL MICROSCOPIC REQUIRED? NO; REVIEW REQ? YES
[2016-07-20] MEDS: PAROXETINE 20 MG TAB PO SCH (20:39)
[2016-07-20] MEDS: SIMVASTATIN 40 MG TAB PO SCH (20:39)
[2016-07-20] MEDS: INSULIN GLARGINE SOLOSTAR 100 UNITS/ML 3 ML PEN SC SCH (20:43)
[2016-07-21] VITALS (14 sets, daily range): BP systolic 152–179; BP diastolic 74–84; PULSE 62–86; TEMP 36.7–36.8; O2SAT 92–96
[2016-07-21] MEDS: ALBUT/IPRATROP 3MG/0.5MG NEB 3 ML VIAL INH SCH ×6 (00:50→20:05)
[2016-07-21] MEDS: LEVOFLOXACIN / D5W 750 MG in PREMIXED IN D5W 150 ML IV SCH (02:56)
[2016-07-21] MEDS: INSULIN ASPART 100 UNITS/ML 3 ML PEN SC SCH ×6 (03:52→23:55)
[2016-07-21 05:28] LABS: COMPLETE YES; HEMATOCRIT 36.1 % (37-47); IG% 0.4 %; LYMPH % 9.2 %; LYMPH ABS # 0.98 K/uL (1.2-3.4); MEAN CELL VOLUME 84.7 fL (80-100); MEAN CORPUSCULAR HGB CONC 31.9 g/dl (32-36); MEAN PLATELET VOLUME 10.7 fL (7.4-10.4); MONO % 6.7 %; NEUT % 83.7 %; PLATELET COUNT 246 K/uL (130-400); RED BLOOD COUNT 4.26 M/uL (4.2-5.4)
[2016-07-21 05:40] LABS: INR 2.6 (0.9-1.1); PROTHROMBIN TIME (PATIENT) 28.4 SECONDS (9.0-12.0)
[2016-07-21 05:58] LABS: ALB/GLOB RATIO 0.9 (0.9-2); BUN/CREATININE RATIO 23.9 (10-20); CALCIUM 8.5 mg/dl (8.5-10.1); CREATININE 1.1 mg/dl (0.60-1.20); MAGNESIUM 2.2 mg/dl (1.8-2.4); PHOSPHORUS 2.5 mg/dl (2.5-4.9); POTASSIUM 4.1 mmol/L (3.5-5.1)
[2016-07-21] MEDS: LEVOTHYROXINE 200 MCG TAB PO SCH (06:40)
[2016-07-21] MEDS: LEVOTHYROXINE 75 MCG TAB PO SCH (06:40)
[2016-07-21] MEDS: FUROSEMIDE 40 MG TAB PO SCH (08:37)
[2016-07-21] MEDS: AMLODIPINE BESYLATE 5 MG TAB PO SCH (08:37)
[2016-07-21] MEDS: ASPIRIN 81 MG CHEW PO SCH (08:37)
[2016-07-21] MEDS: PANTOprazole SOD 40 MG TAB PO SCH (08:37)
[2016-07-21] MEDS: LOSARTAN POTASSIUM 50 MG TAB PO SCH (08:37)
[2016-07-21] MEDS: METHYLPREDNISOLONE IV 40 MG in SYRINGE 0 ML IV SCH ×2 (08:38→21:24)
[2016-07-21] MEDS: INSULIN GLARGINE SOLOSTAR 100 UNITS/ML 3 ML PEN SC SCH ×2 (08:46→21:22)
[2016-07-21] MEDS: LABETALOL HCL 200 MG TAB PO SCH ×3 (08:49→21:30)
--- NOTE | 2016-07-21 14:23 | Pharmacy Progress Note ---
Glycemic Control: Progress Nt Date of Service Jul 21, 2016. Scope Glycemic Pharmacist consulted for glycemic control and to write orders per [facility] inpatient glycemic control protocol. Objective Accuchecks BSG (last 24hrs): Test 07/20/16 16:40 07/20/16 20:30 07/20/16 23:21 07/21/16 03:47 Bedside Glucose 315 mg/dl (70-90) 290 mg/dl (70-90) 257 mg/dl (70-90) 237 mg/dl (70-90) Test 07/21/16 05:14 07/21/16 10:50 Random Glucose 248 mg/dl (70-99) Bedside Glucose 265 mg/dl (70-90) Laboratory Data (last 24hrs) Test 07/21/16 05:14 Anion Gap 8.0 mmol/L BUN/Creatinine Ratio 23.9 Blood Urea Nitrogen 26 mg/dl Creatinine 1.10 mg/dl Potassium Level 4.1 mmol/L Sodium Level 143 mmol/L White Blood Count 10.70 K/uL Red Blood Count 4.26 M/uL Hemoglobin 11.5 g/dL Hematocrit 36.1 % Mean Corpuscular Volume 84.7 fL Mean Corpuscular Hemoglobin 27.0 pg Mean Corpuscular Hemoglobin Concent 31.9 g/dl Platelet Count 246 K/uL Mean Platelet Volume 10.7 fL Neutrophils (%) (Auto) 83.7 % Lymphocytes (%) (Auto) 9.2 % Monocytes (%) (Auto) 6.7 % Eosinophils (%) (Auto) 0.0 % Basophils (%) (Auto) 0.0 % Neutrophils # (Auto) 8.96 K/uL Lymphocytes # (Auto) 0.98 K/uL Monocytes # (Auto) 0.72 K/uL Eosinophils # (Auto) 0.00 K/uL Basophils # (Auto) 0.00 K/uL HbA1c: Test 07/20/16 05:45 Hemoglobin A1c 7.3 % (4.5-5.6) H Recent Pertinent Medications Outpatient Anti-diabetic Regimen: * NPH 130 units QAM, 84 units QPM * Novolog SSI ACHS * A1c = 7.3 % 04/06/16 The patient is currently receiving: * Basal insulin: Lantus every 12 hours based on BSG 15 units for BSG < 120 mg/dL 25 units for BSG 120-180 mg/dL 35 units for BSG greater than 180 mg/dL * Correctional Insulin: Novolog Correction per scale ACHS Goal Range: Low 140 mg/dL - High 180 mg/dL Correction Factor: 15 mg/dL/unit * Prandial insulin: Per carb ratio of 1 unit per 5 grams CHO consumed Risk Factors for Insulin Resistance: * Steroids: SoluMedrol 40mg IV q12h * Infection: Levaquin IV for COPD exacerbation * Diet: Type 2 diabetic/[facility] Assessment & Plan ASSESSMENT: ADA & AACE recommend a goal blood sugar range 140-180 mg/dl for the majority of critically ill & non-critically ill patients. However, more stringent targets may be selected in individual cases. 07/20/16 * Patient is a 70yo diabetic female with significant morbid obesity (BMI 53.8kg/ m2) who is familiar to the pharmacy glycemic mgmt service from past admissions. * Patient uses large doses of insulin as an outpatient (250+ units/day). * Lantus/Novolog initiated somewhat conservatively, as patient has not required nearly as much insulin as an inpatient in the past. * Patient remains significantly hyperglycemic overnight and thus far today ( BSGs ranging from 252 - 277mg/dL). * Lantus dose increased by 20% this morning and correctional parameters tightened, with no improvement pre-lunch today. * Supplemental dose of Lantus x1 dose and continue to titrate upward. * Add CHO ratio for prandial coverage now that diet has been advanced. 07/21/16 * Patient transferred from ICU and BSG's persistently elevated - OK to decrease goal range * Will tighten carb ratio as hyperglycemia is likely steroid-induced * Will tighten correction factor as overnight BSG's did not adequately decrease despite correction administered * Will slightly increase Lantus as AM fasting BSG elevated to 248 mg/dL * Will keep overnight checks at 0000 and 0400 unless any BSG is < 200 mg/dL. Will then change to 0200 check only. PLAN FOR INPATIENT GLYCEMIC CONTROL: * Increase basal insulin with LANTUS SQ BID based on BSG 20 units for BSG < 120 mg/dL 35 units for BSG 120-180 mg/dL 45 units for BSG greater than 180 mg/dL * Correctional Insulin with NOVOLOG per scale ACHS or Q6hrs while NPO - additional checks at 0000, 0400 * Decrease Goal Range: Low 120 mg/dL - High 160 mg/dL * Tighten Correction Factor: 10 mg/dL/unit * Tighten Nutritional / Prandial insulin per carb ratio of 1 unit per 4 grams CHO consumed * Please note that the plan above was derived based on current level of insulin resistance and hospital stress. These recommendations are appropriate for inpatient admission only. Plan of care upon discharge will need to be reassessed to avoid potential outpatient hypo/hyperglycemia. Thank you.
[2016-07-21] MEDS: WARFARIN SOD 5 MG TAB PO SCH (16:45)
--- NOTE | 2016-07-21 18:04 | Progress Note ---
Subjective Date of Service: Jul 21, 2016. Subjective Pt evaluation today including: physical exam, chart review, lab review, review of studies, review of inpatient medication list Problem List Medical Problems: (1) Acute respiratory failure Status: Acute (2) Bilateral lower leg cellulitis Status: Acute (3) CHF (congestive heart failure) Status: Acute (4) COPD exacerbation Status: Acute (5) Dyspnea Status: Acute (6) Fluid overload Status: Acute (7) Hypercarbia Status: Acute (8) Left leg cellulitis Status: Acute (9) Lump in throat Status: Acute (10) Morbid obesity Status: Acute (11) Pneumonia Status: Acute (12) Respiratory acidosis Status: Acute (13) Shortness of breath Status: Acute Review of Systems Constitutional: No chills, No fatigue, No fever, No problem reported, No see HPI, No sweats, No weakness, No weight loss Eyes: No diplopia, No discharge, No eye pain, No problem reported, No redness, No see HPI, No worsening of vision ENT: No dental problems, No hearing loss, No nasal symptoms, No problem reported, No see HPI, No sore throat, No tinnitus, No trouble swallowing, No unusual epistaxis Respiratory: + dyspnea on exertion, + shortness of breath Cardiac: No PND, No chest pain, No claudication, No edema, No orthopnea, No palpitations, No problem reported, No see HPI Abdomen: No GI bleeding, No constipation, No diarrhea, No nausea, No pain, No problem reported, No see HPI, No vomiting Musculoskeletal: No calf pain, No joint pain, No muscle pain, No problem reported, No see HPI, No swelling Neurologic: No balance problems, No memory loss, No numbness/tingling, No paralysis, No problem reported, No see HPI, No vertigo, No weakness Psychiatric: No anhedonism, No anxiety, No depression symptoms, No insomnia, No problem reported, No see HPI, No substance abuse Heme: No abnormal bleeding/bruising, No clotting problems, No night sweats, No problem reported, No see HPI, No swollen lymph nodes Endo: No excessive thirst, No excessive urination, No fatigue, No problem reported, No see HPI Skin: No bleeding, No color change, No itch, No new/changing skin lesions, No problem reported, No rash, No see HPI Objective Vital Signs Date Time Temp Pulse Resp B/P Pulse Ox O2 Delivery O2 Flow Rate FiO2 07/21/16 16:13 66 18 96 Nasal Cannula 2.0 07/21/16 15:16 36.7 65 22 156/76 92 Nasal Cannula 3.0 07/21/16 13:30 36.7 69 24 152/82 93 Nasal Cannula 3.0 07/21/16 13:30 Nasal Cannula 3.0 07/21/16 12:19 36.8 65 24 92 3.0 07/21/16 12:00 36.8 65 24 168/84 92 Nasal Cannula 3.0 07/21/16 12:00 Nasal Cannula 3.0 07/21/16 07:33 64 18 96 Nasal Cannula 3.0 07/21/16 07:30 Nasal Cannula 3.0 07/21/16 07:30 36.8 67 24 179/75 92 Nasal Cannula 3.0 07/21/16 04:00 36.8 62 19 168/74 94 CPAP 3.0 71 07/21/16 04:00 CPAP 3.0 07/21/16 03:28 62 18 92 BiPAP/CPAP 3.0 07/21/16 00:52 69 18 95 BiPAP/CPAP 3.0 07/20/16 23:59 CPAP 3.0 07/20/16 23:59 36.9 62 24 169/91 94 CPAP 3.0 61 07/20/16 20:00 Nasal Cannula 3.0 07/20/16 20:00 36.9 74 21 172/70 91 Nasal Cannula 3.0 71 07/20/16 19:00 70 20 95 Nasal Cannula 4.0 Physical Exam General Appearance: WD/WN, no apparent distress Eyes: normal inspection, EOMI ENT: normal ENT inspection, hearing grossly normal Neck: supple Respiratory/Chest: chest non-tender, + decreased breath sounds, + rales Cardiovascular: regular rate, rhythm, no edema, + gallop/S3 Abdomen: normal bowel sounds, non tender, soft, no organomegaly, no pulsatile mass Extremities: normal range of motion, non-tender, normal inspection, no pedal edema, no calf tenderness Neurologic/Psychiatric: senior 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 manager II-XII nml as tested, no motor/sensory deficits, alert, normal mood/affect, oriented x 3 Skin: normal color, warm/dry, no rash Laboratory Results Last 24 Hours Test 07/20/16 20:30 2/17/17 23:21 07/21/16 03:47 07/21/16 05:14 Bedside Glucose 290 mg/dl 257 mg/dl 237 mg/dl White Blood Count 10.70 K/uL Red Blood Count 4.26 M/uL Hemoglobin 11.5 g/dL Hematocrit 36.1 % Mean Corpuscular Volume 84.7 fL Mean Corpuscular Hemoglobin 27.0 pg Mean Corpuscular Hemoglobin Concent 31.9 g/dl Platelet Count 246 K/uL Mean Platelet Volume 10.7 fL Neutrophils (%) (Auto) 83.7 % Lymphocytes (%) (Auto) 9.2 % Monocytes (%) (Auto) 6.7 % Eosinophils (%) (Auto) 0.0 % Basophils (%) (Auto) 0.0 % Neutrophils # (Auto) 8.96 K/uL Lymphocytes # (Auto) 0.98 K/uL Monocytes # (Auto) 0.72 K/uL Eosinophils # (Auto) 0.00 K/uL Basophils # (Auto) 0.00 K/uL RDW Standard Deviation 51.4 fL RDW Coefficient of Variation 16.5 % Immature Granulocyte % (Auto) 0.4 % Immature Granulocyte # (Auto) 0.04 K/uL Prothrombin Time 28.4 SECONDS Prothromb Time International Ratio 2.6 Sodium Level 143 mmol/L Potassium Level 4.1 mmol/L Chloride Level 105 mmol/L Carbon Dioxide Level 30 mmol/L Anion Gap 8.0 mmol/L Blood Urea Nitrogen 26 mg/dl Creatinine 1.10 mg/dl Est Creatinine Clear Calc Drug Dose 75.7 ml/min Estimated GFR () 59.3 Estimated GFR (Non- 51.2 BUN/Creatinine Ratio 23.9 Random Glucose 248 mg/dl Calcium Level 8.5 mg/dl Phosphorus Level 2.5 mg/dl Magnesium Level 2.2 mg/dl Total Bilirubin 0.5 mg/dl Aspartate Amino Transf (AST/SGOT) 14 U/L Alanine Aminotransferase (ALT/SGPT) 20 U/L Alkaline Phosphatase 54 U/L Total Protein 6.3 gm/dl Albumin 3.0 gm/dl Globulin 3.3 gm/dl Albumin/Globulin Ratio 0.9 Test 07/21/16 10:50 07/21/16 16:21 Bedside Glucose 265 mg/dl 228 mg/dl Assessment and Plan 70 years old woman , recently treated for DVT / PE admitted with acute SOB and hypoxic respiratory failure Acute hypoxic respiratory failure , multi factorial , S/P successful extubation , critical care consult appreciated, can be transferred to telemetry COPD exacerbation, continue steroids/bronchodilators (solu medrol titrated down) underlying possible bronchitis/ hold levofloxacin until re xhecking QTc acute on chronic diastolic CHF exacerbation, cont B janes, Cozaar,currently oral lasix and oxygenating well on nasal cannula, lung exam is slightly worse , change lasix to 20mg IV BID, check I/Os DM - sliding scale Hypothyroid - cont synthroid HPL - cont statin full code, on Coumadin, INR is therapeutic Order labs for am repeat CXR PT/OT * Echo 05/2016 -- Conclusions -- * Extremely limited study as the apatient is sitting up for study. * Left ventricular systolic function is normal. * Ejection Fraction = 50-55%. * The left ventricular wall motion is normal. * The RV is poorly visualized. In the Limitted views the RVOT portion does not seem dilated. * Additionally the interventricular septum does NOT appeared flattened. * Can not assess RV function. * There is severe mitral annular calcification. * Moderate mitral stenosis secondary to MAC (MG 5 mm/hg) * Diastolic dysfunction, Grade II (pseudonormalization pattern). * Elevated E to e' ratio. * There is trace tricuspid regurgitation. Could not assess PA pressures.
[2016-07-21] MEDS: FUROSEMIDE INJ 20 MG in SYRINGE 0 ML IV SCH (21:24)
[2016-07-21] MEDS: SIMVASTATIN 40 MG TAB PO SCH (21:29)
[2016-07-21] MEDS: PAROXETINE 20 MG TAB PO SCH (21:29)
[2016-07-22] VITALS (10 sets, daily range): BP systolic 154–165; BP diastolic 73–79; PULSE 63–75; TEMP 36.7–36.8; O2SAT 92–96
[2016-07-22] MEDS: ALBUT/IPRATROP 3MG/0.5MG NEB 3 ML VIAL INH SCH ×7 (00:08→23:31)
[2016-07-22] MEDS: INSULIN ASPART 100 UNITS/ML 3 ML PEN SC SCH ×5 (04:13→20:51)
[2016-07-22] MEDS: LEVOTHYROXINE 200 MCG TAB PO SCH (06:30)
[2016-07-22] MEDS: LEVOTHYROXINE 75 MCG TAB PO SCH (06:30)
[2016-07-22 07:06] LABS: COMPLETE YES; HEMATOCRIT 37.2 % (37-47); IG% 0.6 %; LYMPH % 10.6 %; MEAN CELL VOLUME 82.1 fL (80-100); MEAN CORPUSCULAR HEMOGLOBIN 26.3 pg (25-34); MEAN PLATELET VOLUME 10.3 fL (7.4-10.4); MONO % 7.2 %; NEUT % 81.6 %; PLATELET COUNT 260 K/uL (130-400); RED BLOOD COUNT 4.53 M/uL (4.2-5.4); WHITE BLOOD COUNT 9.42 K/uL (4.8-10.8)
[2016-07-22 07:11] LABS: INR 2.5 (0.9-1.1); PROTHROMBIN TIME (PATIENT) 27.8 SECONDS (9.0-12.0)
[2016-07-22 07:35] LABS: BUN/CREATININE RATIO 25.3 (10-20); CALCIUM 8.7 mg/dl (8.5-10.1); MAGNESIUM 2.1 mg/dl (1.8-2.4); POTASSIUM 3.7 mmol/L (3.5-5.1)
[2016-07-22 07:40] LABS: ALB/GLOB RATIO 0.9 (0.9-2)
[2016-07-22] MEDS: INSULIN GLARGINE SOLOSTAR 100 UNITS/ML 3 ML PEN SC SCH ×2 (08:51→20:53)
[2016-07-22] MEDS: METHYLPREDNISOLONE IV 40 MG in SYRINGE 0 ML IV SCH ×2 (08:55→20:22)
[2016-07-22] MEDS: FUROSEMIDE INJ 20 MG in SYRINGE 0 ML IV SCH ×2 (08:55→20:22)
[2016-07-22] MEDS: ASPIRIN 81 MG CHEW PO SCH (08:59)
[2016-07-22] MEDS: LOSARTAN POTASSIUM 50 MG TAB PO SCH (09:01)
[2016-07-22] MEDS: LABETALOL HCL 200 MG TAB PO SCH ×2 (09:01→15:06)
[2016-07-22] MEDS: PANTOprazole SOD 40 MG TAB PO SCH (09:02)
[2016-07-22] MEDS: AMLODIPINE BESYLATE 5 MG TAB PO SCH (09:02)
--- NOTE | 2016-07-22 12:40 | Pharmacy Progress Note ---
Glycemic Control: Progress Nt Date of Service Jul 22, 2016. Scope Glycemic Pharmacist consulted for glycemic control and to write orders per [facility] inpatient glycemic control protocol. Objective Accuchecks BSG (last 24hrs): Test 07/21/16 16:21 07/21/16 20:06 07/21/16 23:47 07/22/16 03:59 Bedside Glucose 228 mg/dl (70-90) 261 mg/dl (70-90) 189 mg/dl (70-90) 193 mg/dl (70-90) Test 07/22/16 06:33 07/22/16 07:31 07/22/16 11:21 Random Glucose 199 mg/dl (70-99) Bedside Glucose 199 mg/dl (70-90) 229 mg/dl (70-90) Laboratory Data (last 24hrs) Test 07/22/16 06:33 Anion Gap 10.0 mmol/L BUN/Creatinine Ratio 25.3 Blood Urea Nitrogen 25 mg/dl Creatinine 1.00 mg/dl Potassium Level 3.7 mmol/L Sodium Level 141 mmol/L White Blood Count 9.42 K/uL Red Blood Count 4.53 M/uL Hemoglobin 11.9 g/dL Hematocrit 37.2 % Mean Corpuscular Volume 82.1 fL Mean Corpuscular Hemoglobin 26.3 pg Mean Corpuscular Hemoglobin Concent 32.0 g/dl Platelet Count 260 K/uL Mean Platelet Volume 10.3 fL Neutrophils (%) (Auto) 81.6 % Lymphocytes (%) (Auto) 10.6 % Monocytes (%) (Auto) 7.2 % Eosinophils (%) (Auto) 0.0 % Basophils (%) (Auto) 0.0 % Neutrophils # (Auto) 7.68 K/uL Lymphocytes # (Auto) 1.00 K/uL Monocytes # (Auto) 0.68 K/uL Eosinophils # (Auto) 0.00 K/uL Basophils # (Auto) 0.00 K/uL HbA1c: Test 07/20/16 05:45 Hemoglobin A1c 7.3 % (4.5-5.6) H Recent Pertinent Medications Outpatient Anti-diabetic Regimen: * NPH 130 units QAM, 84 units QPM * Novolog SSI ACHS The patient is currently receiving: * Basal insulin: Lantus every 12 hours based on BSG 20 units for BSG < 120 mg/dL 35 units for BSG 120-180 mg/dL 45 units for BSG greater than 180 mg/dL * Correctional Insulin: Novolog Correction per scale ACHS Goal Range: Low 120 mg/dL - High 160 mg/dL Correction Factor: 10 mg/dL/unit * Prandial insulin: Per carb ratio of 1 unit per 4 grams CHO consumed Risk Factors for Insulin Resistance: * Steroids: SoluMedrol 40mg IV q12h * Diet: Type 2 diabetic/AHA/mech soft diet today Assessment & Plan ASSESSMENT: ADA & AACE recommend a goal blood sugar range 140-180 mg/dl for the majority of critically ill & non-critically ill patients. However, more stringent targets may be selected in individual cases. 07/21/16 * Patient transferred from ICU and BSG's persistently elevated - OK to decrease goal range * Will tighten carb ratio as hyperglycemia is likely steroid-induced * Will tighten correction factor as overnight BSG's did not adequately decrease despite correction administered * Will slightly increase Lantus as AM fasting BSG elevated to 248 mg/dL * Will keep overnight checks at 0000 and 0400 unless any BSG is < 200 mg/dL. Will then change to 0200 check only. 07/22/16 * Persistently elevated BSG's, however some are now in the 100's so BSG's are at least improving. * Patient with too high ratio basal:bolus for being on steroids. * Will tighten carb ratio further * Will change parameters on Lantus so lower doses given depending on BSG * OK to decrease overnight checks from 2 to 1 PLAN FOR INPATIENT GLYCEMIC CONTROL: * Adjust basal insulin with LANTUS SQ BID based on BSG 20 units for BSG < 120 mg/dL 35 units for BSG 120-200 mg/dL 45 units for BSG greater than 200 mg/dL * Correctional Insulin with NOVOLOG per scale ACHS or Q6hrs while NPO - additional checks at 0000, 0400 * Goal Range: Low 120 mg/dL - High 160 mg/dL * Correction Factor: 10 mg/dL/unit * Tighten Nutritional / Prandial insulin per carb ratio of 1 unit per 3 grams CHO consumed * Please note that the plan above was derived based on current level of insulin resistance and hospital stress. These recommendations are appropriate for inpatient admission only. Plan of care upon discharge will need to be reassessed to avoid potential outpatient hypo/hyperglycemia. Thank you.
[2016-07-22] MEDS: WARFARIN SOD 5 MG TAB PO SCH (16:37)
--- NOTE | 2016-07-22 16:51 | Progress Note ---
Subjective Date of Service: Jul 22, 2016. Subjective Pt evaluation today including: conversation w/ patient, physical exam, lab review, review of inpatient medication list Problem List Medical Problems: (1) Acute respiratory failure Status: Acute (2) Bilateral lower leg cellulitis Status: Acute (3) CHF (congestive heart failure) Status: Acute (4) COPD exacerbation Status: Acute (5) Dyspnea Status: Acute (6) Fluid overload Status: Acute (7) Hypercarbia Status: Acute (8) Left leg cellulitis Status: Acute (9) Lump in throat Status: Acute (10) Morbid obesity Status: Acute (11) Pneumonia Status: Acute (12) Respiratory acidosis Status: Acute (13) Shortness of breath Status: Acute Review of Systems Constitutional: No chills, No fatigue, No fever, No problem reported, No see HPI, No sweats, No weakness, No weight loss Eyes: No diplopia, No discharge, No eye pain, No problem reported, No redness, No see HPI, No worsening of vision ENT: No dental problems, No hearing loss, No nasal symptoms, No problem reported, No see HPI, No sore throat, No tinnitus, No trouble swallowing, No unusual epistaxis Respiratory: No cough, No dyspnea at rest, No dyspnea on exertion, No hemoptysis, No problem reported, No see HPI, No shortness of breath, No sputum, No wheezing Cardiac: No PND, No chest pain, No claudication, No edema, No orthopnea, No palpitations, No problem reported, No see HPI Breast: No breast lump, No breast pain, No change in shape, No nipple discharge , No problem reported, No see HPI Abdomen: No GI bleeding, No constipation, No diarrhea, No nausea, No pain, No problem reported, No see HPI, No vomiting Musculoskeletal: No calf pain, No joint pain, No muscle pain, No problem reported, No see HPI, No swelling Female : No abnormal vaginal bleeding, No dysuria, No hematuria, No incontinence, No problem reported, No see HPI, No urinary frequency, No vaginal discharge Neurologic: No balance problems, No memory loss, No numbness/tingling, No paralysis, No problem reported, No see HPI, No vertigo, No weakness Psychiatric: No anhedonism, No anxiety, No depression symptoms, No insomnia, No problem reported, No see HPI, No substance abuse Heme: No abnormal bleeding/bruising, No clotting problems, No night sweats, No problem reported, No see HPI, No swollen lymph nodes Endo: No excessive thirst, No excessive urination, No fatigue, No problem reported, No see HPI Skin: No bleeding, No color change, No itch, No new/changing skin lesions, No problem reported, No rash, No see HPI Objective Vital Signs Date Time Temp Pulse Resp B/P Pulse Ox O2 Delivery O2 Flow Rate FiO2 07/22/16 14:46 36.7 70 20 154/73 94 2.0 07/22/16 11:45 68 16 95 Nasal Cannula 2.0 07/22/16 11:44 67 95 07/22/16 08:00 Nasal Cannula 3.0 07/22/16 07:40 70 12 96 Nasal Cannula 2.0 07/22/16 07:19 36.8 63 22 165/79 95 BiPAP 07/22/16 03:51 63 18 92 BiPAP/CPAP 3.0 07/22/16 00:08 65 18 92 BiPAP/CPAP 3.0 07/22/16 00:00 CPAP 2.0 07/21/16 23:30 36.7 66 20 95 3.0 07/21/16 22:56 154/82 07/21/16 21:18 67 174/78 07/21/16 20:05 86 18 96 Nasal Cannula 2.0 07/21/16 19:30 Nasal Cannula 3.0 Physical Exam General Appearance: WD/WN, no apparent distress Eyes: normal inspection, EOMI ENT: normal ENT inspection, hearing grossly normal Neck: supple Respiratory/Chest: chest non-tender, no respiratory distress, no accessory muscle use, + rales Cardiovascular: regular rate, rhythm, no edema, no gallop, no JVD Abdomen: normal bowel sounds, non tender, soft, no organomegaly Extremities: normal range of motion, non-tender, normal inspection, no pedal edema, no calf tenderness Neurologic/Psychiatric: community fundraiser II-XII nml as tested, no motor/sensory deficits, alert, normal mood/affect, oriented x 3 Skin: normal color, warm/dry, no rash Laboratory Results Last 24 Hours Test 07/21/16 20:06 07/21/16 23:47 07/22/16 03:59 07/22/16 06:33 Bedside Glucose 261 mg/dl 189 mg/dl 193 mg/dl White Blood Count 9.42 K/uL Red Blood Count 4.53 M/uL Hemoglobin 11.9 g/dL Hematocrit 37.2 % Mean Corpuscular Volume 82.1 fL Mean Corpuscular Hemoglobin 26.3 pg Mean Corpuscular Hemoglobin Concent 32.0 g/dl Platelet Count 260 K/uL Mean Platelet Volume 10.3 fL Neutrophils (%) (Auto) 81.6 % Lymphocytes (%) (Auto) 10.6 % Monocytes (%) (Auto) 7.2 % Eosinophils (%) (Auto) 0.0 % Basophils (%) (Auto) 0.0 % Neutrophils # (Auto) 7.68 K/uL Lymphocytes # (Auto) 1.00 K/uL Monocytes # (Auto) 0.68 K/uL Eosinophils # (Auto) 0.00 K/uL Basophils # (Auto) 0.00 K/uL RDW Standard Deviation 49.2 fL RDW Coefficient of Variation 16.3 % Immature Granulocyte % (Auto) 0.6 % Immature Granulocyte # (Auto) 0.06 K/uL Sodium Level 141 mmol/L Potassium Level 3.7 mmol/L Chloride Level 101 mmol/L Carbon Dioxide Level 30 mmol/L Anion Gap 10.0 mmol/L Blood Urea Nitrogen 25 mg/dl Creatinine 1.00 mg/dl Est Creatinine Clear Calc Drug Dose 81.3 ml/min Estimated GFR () 66.6 Estimated GFR (Non- 57.4 BUN/Creatinine Ratio 25.3 Random Glucose 199 mg/dl Calcium Level 8.7 mg/dl Magnesium Level 2.1 mg/dl Total Bilirubin 0.7 mg/dl Aspartate Amino Transf (AST/SGOT) 13 U/L Alanine Aminotransferase (ALT/SGPT) 25 U/L Alkaline Phosphatase 57 U/L Total Creatine Kinase 57 U/L Troponin I 0.035 ng/ml Total Protein 6.4 gm/dl Albumin 3.1 gm/dl Globulin 3.3 gm/dl Albumin/Globulin Ratio 0.9 Test 07/22/16 06:53 07/22/16 07:31 07/22/16 11:21 Prothrombin Time 27.8 SECONDS Prothromb Time International Ratio 2.5 Bedside Glucose 199 mg/dl 229 mg/dl Assessment and Plan 70 years old woman , recently treated for DVT / PE admitted with acute SOB and hypoxic respiratory failure Acute hypoxic respiratory failure , multi factorial , S/P successful extubation , critical care consult appreciated, can be transferred to telemetry COPD exacerbation, continue steroids/bronchodilators ( continue titrating solu medrol down) underlying possible bronchitis/ levofloxacin x 2 days , DC due to border line QTc prolongation acute on chronic diastolic CHF exacerbation, cont B janes, Cozaar,currently iv lasix and oxygenating well on nasal cannula, lung exam is slightly worse , continue lasix to 20mg IV BID, check I/Os, plan to discharge on lasix 40mg po daily plus metolazone 2.5mg po every other day with frequent renal function monitor as an out patient. DM - sliding scale Hypothyroid - cont synthroid HPL - cont statin full code, on Coumadin, INR is therapeutic border line QTc prolongation; DC zofran, decrease paroxetine by half Order labs for am repeat CXR PT/OT * Echo 05/2016 -- Conclusions -- * Extremely limited study as the apatient is sitting up for study. * Left ventricular systolic function is normal. * Ejection Fraction = 50-55%. * The left ventricular wall motion is normal. * The RV is poorly visualized. In the Limitted views the RVOT portion does not seem dilated. * Additionally the interventricular septum does NOT appeared flattened. * Can not assess RV function. * There is severe mitral annular calcification. * Moderate mitral stenosis secondary to MAC (MG 5 mm/hg) * Diastolic dysfunction, Grade II (pseudonormalization pattern). * Elevated E to e' ratio. * There is trace tricuspid regurgitation. Could not assess PA pressures.
[2016-07-22] MEDS: PAROXETINE 20 MG TAB PO SCH (20:23)
[2016-07-22] MEDS: SIMVASTATIN 40 MG TAB PO SCH (20:23)
[2016-07-23] VITALS (10 sets, daily range): BP systolic 167–194; BP diastolic 64–78; PULSE 56–78; TEMP 36.4–36.7; O2SAT 90–96
[2016-07-23] MEDS ORDERED: INSULIN ASPART 100 UNITS/ML 3 ML PEN SC ONE (02:00)
[2016-07-23] MEDS: ALBUT/IPRATROP 3MG/0.5MG NEB 3 ML VIAL INH SCH ×6 (03:30→23:38)
[2016-07-23] MEDS: LEVOTHYROXINE 75 MCG TAB PO SCH (06:26)
[2016-07-23] MEDS: LEVOTHYROXINE 200 MCG TAB PO SCH (06:26)
[2016-07-23 07:05] LABS: BASO % 0.1 %; BASO ABS # 0.01 K/uL (0-0.2); COMPLETE YES; HEMATOCRIT 38.3 % (37-47); IG% 0.3 %; LYMPH % 11.6 %; LYMPH ABS # 1.12 K/uL (1.2-3.4); MEAN CELL VOLUME 81.7 fL (80-100); MEAN CORPUSCULAR HEMOGLOBIN 26.4 pg (25-34); MEAN CORPUSCULAR HGB CONC 32.4 g/dl (32-36); MEAN PLATELET VOLUME 10.3 fL (7.4-10.4); MONO % 8.7 %; NEUT % 79.3 %; PLATELET COUNT 268 K/uL (130-400); RED BLOOD COUNT 4.69 M/uL (4.2-5.4); WHITE BLOOD COUNT 9.64 K/uL (4.8-10.8)
[2016-07-23 07:11] LABS: INR 2.6 (0.9-1.1); PROTHROMBIN TIME (PATIENT) 28.9 SECONDS (9.0-12.0)
[2016-07-23 07:41] LABS: BUN/CREATININE RATIO 24.1 (10-20); CALCIUM 9.1 mg/dl (8.5-10.1); CREATININE 1.2 mg/dl (0.60-1.20); MAGNESIUM 2.3 mg/dl (1.8-2.4); POTASSIUM 3.7 mmol/L (3.5-5.1)
[2016-07-23] MEDS: FUROSEMIDE INJ 20 MG in SYRINGE 0 ML IV SCH (07:53)
[2016-07-23] MEDS: LOSARTAN POTASSIUM 50 MG TAB PO SCH (07:53)
[2016-07-23] MEDS: METHYLPREDNISOLONE IV 40 MG in SYRINGE 0 ML IV SCH (07:53)
[2016-07-23] MEDS: AMLODIPINE BESYLATE 5 MG TAB PO SCH (07:53)
[2016-07-23] MEDS: PANTOprazole SOD 40 MG TAB PO SCH (07:54)
[2016-07-23] MEDS: ASPIRIN 81 MG CHEW PO SCH (08:01)
[2016-07-23] MEDS: INSULIN ASPART 100 UNITS/ML 3 ML PEN SC SCH ×5 (09:54→20:57)
[2016-07-23] MEDS: INSULIN GLARGINE SOLOSTAR 100 UNITS/ML 3 ML PEN SC SCH ×2 (09:55→20:51)
--- NOTE | 2016-07-23 13:16 | Progress Note ---
Subjective Date of Service: Jul 23, 2016. Subjective Pt evaluation today including: conversation w/ patient, physical exam, chart review, lab review, review of studies, review of inpatient medication list Problem List Medical Problems: (1) Acute respiratory failure Status: Acute (2) Bilateral lower leg cellulitis Status: Acute (3) CHF (congestive heart failure) Status: Acute (4) COPD exacerbation Status: Acute (5) Dyspnea Status: Acute (6) Fluid overload Status: Acute (7) Hypercarbia Status: Acute (8) Left leg cellulitis Status: Acute (9) Lump in throat Status: Acute (10) Morbid obesity Status: Acute (11) Pneumonia Status: Acute (12) Respiratory acidosis Status: Acute (13) Shortness of breath Status: Acute Review of Systems Constitutional: No chills, No fever Respiratory: + dyspnea on exertion, + shortness of breath, No cough, No sputum , No wheezing Cardiac: No chest pain, No orthopnea Abdomen: No constipation, No diarrhea, No nausea, No pain, No vomiting Musculoskeletal: No joint pain, No muscle pain Female : No dysuria, No urinary frequency Objective Vital Signs Date Time Temp Pulse Resp B/P Pulse Ox O2 Delivery O2 Flow Rate FiO2 07/23/16 11:39 65 18 92 Nasal Cannula 3.0 07/23/16 10:19 167/73 07/23/16 08:03 75 18 93 Nasal Cannula 3.0 07/23/16 07:47 36.6 65 18 182/78 96 194/64 07/23/16 03:30 56 18 90 BiPAP/CPAP 3.0 07/23/16 00:11 36.7 65 20 174/78 92 CPAP 07/23/16 00:00 Nasal Cannula 3.0 07/22/16 23:20 75 18 96 Nasal Cannula 2.0 07/22/16 19:47 Nasal Cannula 3.0 07/22/16 19:00 68 16 95 Nasal Cannula 2.0 07/22/16 16:00 Nasal Cannula 3.0 07/22/16 16:00 68 16 95 Nasal Cannula 2.0 07/22/16 14:46 36.7 70 20 154/73 94 2.0 Physical Exam General Appearance: WD/WN, no apparent distress Neck: supple, no adenopathy Respiratory/Chest: chest non-tender, + decreased breath sounds, + rhonchi, + wheezing Cardiovascular: no gallop, no JVD Abdomen: non tender, soft Neurologic/Psychiatric: alert, normal mood/affect, oriented x 3 Laboratory Results Last 24 Hours Test 07/22/16 16:29 07/22/16 20:32 07/23/16 02:06 07/23/16 06:23 Bedside Glucose 271 mg/dl 246 mg/dl 183 mg/dl Sodium Level 141 mmol/L Potassium Level 3.7 mmol/L Chloride Level 99 mmol/L Carbon Dioxide Level 32 mmol/L Anion Gap 10.0 mmol/L Blood Urea Nitrogen 29 mg/dl Creatinine 1.20 mg/dl Est Creatinine Clear Calc Drug Dose 67.7 ml/min Estimated GFR () 53.4 Estimated GFR (Non- 46.1 BUN/Creatinine Ratio 24.1 Random Glucose 204 mg/dl Calcium Level 9.1 mg/dl Phosphorus Level 4.0 mg/dl Magnesium Level 2.3 mg/dl Total Bilirubin 0.7 mg/dl Aspartate Amino Transf (AST/SGOT) 11 U/L Alanine Aminotransferase (ALT/SGPT) 31 U/L Alkaline Phosphatase 57 U/L Total Protein 6.4 gm/dl Albumin 3.2 gm/dl Globulin 3.2 gm/dl Albumin/Globulin Ratio 1.0 Test 07/23/16 06:38 07/23/16 07:45 07/23/16 11:32 White Blood Count 9.64 K/uL Red Blood Count 4.69 M/uL Hemoglobin 12.4 g/dL Hematocrit 38.3 % Mean Corpuscular Volume 81.7 fL Mean Corpuscular Hemoglobin 26.4 pg Mean Corpuscular Hemoglobin Concent 32.4 g/dl Platelet Count 268 K/uL Mean Platelet Volume 10.3 fL Neutrophils (%) (Auto) 79.3 % Lymphocytes (%) (Auto) 11.6 % Monocytes (%) (Auto) 8.7 % Eosinophils (%) (Auto) 0.0 % Basophils (%) (Auto) 0.1 % Neutrophils # (Auto) 7.64 K/uL Lymphocytes # (Auto) 1.12 K/uL Monocytes # (Auto) 0.84 K/uL Eosinophils # (Auto) 0.00 K/uL Basophils # (Auto) 0.01 K/uL RDW Standard Deviation 48.6 fL RDW Coefficient of Variation 16.3 % Immature Granulocyte % (Auto) 0.3 % Immature Granulocyte # (Auto) 0.03 K/uL Prothrombin Time 28.9 SECONDS Prothromb Time International Ratio 2.6 Bedside Glucose 188 mg/dl 251 mg/dl Assessment and Plan 70 years old woman , recently treated for DVT / PE admitted with acute SOB and hypoxic respiratory failure Acute hypoxic respiratory failure, multi factorial, S/P successful extubation, critical care consult appreciated COPD exacerbation, continue steroids/bronchodilators weaning, may require longer taper on prednisone underlying possible bronchitis/ levofloxacin x 2 days , DC due to border line QTc prolongation acute on chronic diastolic CHF exacerbation, cont garrett charles,currently po lasix and oxygenating well on nasal cannula, lung exam is slightly worse, check I/Os, plan to discharge on lasix 40mg po daily plus metolazone 2.5mg po every other day with frequent renal function monitor as an out patient. DM - sliding scale Hypothyroid - cont synthroid HPL - cont statin full code, on Coumadin, INR is therapeutic border line QTc prolongation; DC zofran, decrease paroxetine by half Order labs for am repeat CXR PT/OT * Echo 05/2016 -- Conclusions -- * Extremely limited study as the apatient is sitting up for study. * Left ventricular systolic function is normal. * Ejection Fraction = 50-55%. * The left ventricular wall motion is normal. * The RV is poorly visualized. In the Limitted views the RVOT portion does not seem dilated. * Additionally the interventricular septum does NOT appeared flattened. * Can not assess RV function. * There is severe mitral annular calcification. * Moderate mitral stenosis secondary to MAC (MG 5 mm/hg) * Diastolic dysfunction, Grade II (pseudonormalization pattern). * Elevated E to e' ratio. * There is trace tricuspid regurgitation. Could not assess PA pressures.
--- NOTE | 2016-07-23 14:12 | DIAGNOSTIC IMAGING REPORT ---
CHEST ONE VIEW PORTABLE CLINICAL HISTORY: pulm edema, CHF, COPD COMPARISON STUDY: 07/20/2016 FINDINGS: The heart is enlarged. There is improving pulmonary edema. There is no focal pulmonary consolidation. There are left basilar atelectatic changes.[ IMPRESSION: Cardiomegaly and improving congestive failure/pulmonary edema. Electronically signed by: Simon Walter M.D. 07/23/2016 2:10 PM Dictated Date/Time: 07/23/2016 2:10 PM
[2016-07-23] MEDS: METOLAZONE 2.5 MG TAB PO SCH (15:10)
--- NOTE | 2016-07-23 15:12 | Pharmacy Progress Note ---
Glycemic: Assessment & Plan Date of Service Jul 23, 2016. Assessment & Plan The patient received 166 units of insulin on 07/21, 183 units on 07/22. BSGs ranging 183-271 mg/dl over the past 24hrs. BSG's trending down but still high postprandially. PO intake good. Solumedrol dc'd this afternoon, will start prednisone tomorrow. Will tighten correction and carb ratio again, and reassess in am. * Basal insulin: Lantus every 12 hours per protocol: if BSG is less than 120, give 20 units if BSG 120-200, give 35 units if BSG is greater than 200, give 45 units * Correctional Insulin: Novolog Correction per scale ACHS Goal Range: Low 120 mg/dL - High 160 mg/dL Correction Factor: 9 mg/dL/unit * Prandial insulin: Per carb ratio of 1 unit per 2 grams CHO consumed BSGs continue to improve, no changes needed to inpatient regimen at this time. Pharmacy will continue to monitor patient daily and write orders per [facility] inpatient glycemic control protocol. Thanks. * Please note that the plan above was derived based on current level of insulin resistance and hospital stress. These recommendations are appropriate for inpatient admission only. Plan of care upon discharge will need to be reassessed to avoid potential outpatient hypo/hyperglycemia.
[2016-07-23] MEDS: WARFARIN SOD 5 MG TAB PO SCH (17:00)
[2016-07-23] MEDS: SIMVASTATIN 40 MG TAB PO SCH (20:44)
[2016-07-23] MEDS: PAROXETINE 20 MG TAB PO SCH (20:44)
[2016-07-24] VITALS (8 sets, daily range): BP systolic 121–187; BP diastolic 64–83; PULSE 63–90; TEMP 36.5–36.7; O2SAT 91–98
[2016-07-24] MEDS: LEVOTHYROXINE 200 MCG TAB PO SCH (06:32)
[2016-07-24] MEDS: LEVOTHYROXINE 75 MCG TAB PO SCH (06:32)
[2016-07-24] MEDS: AMLODIPINE BESYLATE 5 MG TAB PO SCH (07:37)
[2016-07-24] MEDS: ASPIRIN 81 MG CHEW PO SCH (07:37)
[2016-07-24] MEDS: FUROSEMIDE 40 MG TAB PO SCH (07:37)
[2016-07-24] MEDS: PANTOprazole SOD 40 MG TAB PO SCH (07:37)
[2016-07-24] MEDS: LOSARTAN POTASSIUM 50 MG TAB PO SCH ×2 (07:37→20:57)
[2016-07-24] MEDS: ALBUT/IPRATROP 3MG/0.5MG NEB 3 ML VIAL INH SCH ×5 (07:40→23:58)
[2016-07-24 08:12] LABS: COMPLETE YES; HEMATOCRIT 40.5 % (37-47); IG% 0.3 %; LYMPH % 16.9 %; LYMPH ABS # 1.95 K/uL (1.2-3.4); MEAN CELL VOLUME 83.3 fL (80-100); MEAN CORPUSCULAR HEMOGLOBIN 26.7 pg (25-34); MEAN CORPUSCULAR HGB CONC 32.1 g/dl (32-36); MEAN PLATELET VOLUME 10.3 fL (7.4-10.4); MONO % 9.7 %; NEUT % 71.1 %; PLATELET COUNT 290 K/uL (130-400); RED BLOOD COUNT 4.86 M/uL (4.2-5.4); WHITE BLOOD COUNT 11.56 K/uL (4.8-10.8)
[2016-07-24] MEDS: INSULIN ASPART 100 UNITS/ML 3 ML PEN SC SCH ×4 (08:40→21:00)
[2016-07-24 08:41] LABS: CREATININE 1.2 mg/dl (0.60-1.20); MAGNESIUM 2.3 mg/dl (1.8-2.4); POTASSIUM 3.3 mmol/L (3.5-5.1)
[2016-07-24] MEDS: INSULIN GLARGINE SOLOSTAR 100 UNITS/ML 3 ML PEN SC SCH ×2 (08:41→21:01)
[2016-07-24] MEDS ORDERED: NURSING DECISION MEDICATION ORDER SCH (10:00)
[2016-07-24] MEDS ORDERED: MICONAZOLE NITRATE POWDER 43 GM EXT PRN (10:30)
--- NOTE | 2016-07-24 14:19 | Progress Note ---
Subjective Date of Service: Jul 24, 2016. Subjective Pt evaluation today including: conversation w/ patient, physical exam, chart review, lab review, review of studies, review of inpatient medication list Problem List Medical Problems: (1) Acute respiratory failure Status: Acute (2) Bilateral lower leg cellulitis Status: Acute (3) CHF (congestive heart failure) Status: Acute (4) COPD exacerbation Status: Acute (5) Dyspnea Status: Acute (6) Fluid overload Status: Acute (7) Hypercarbia Status: Acute (8) Left leg cellulitis Status: Acute (9) Lump in throat Status: Acute (10) Morbid obesity Status: Acute (11) Pneumonia Status: Acute (12) Respiratory acidosis Status: Acute (13) Shortness of breath Status: Acute Review of Systems Constitutional: No chills, No fever Respiratory: + cough, No dyspnea on exertion, No shortness of breath, No sputum , No wheezing Cardiac: No chest pain, No orthopnea Abdomen: No constipation, No diarrhea, No nausea, No pain, No vomiting Musculoskeletal: No joint pain, No muscle pain Female : No dysuria, No urinary frequency Objective Vital Signs Date Time Temp Pulse Resp B/P Pulse Ox O2 Delivery O2 Flow Rate FiO2 07/24/16 11:07 90 20 98 Nasal Cannula 3.0 07/24/16 08:45 Nasal Cannula 3.0 07/24/16 07:40 63 20 95 Nasal Cannula 3.0 07/24/16 07:28 36.6 67 22 166/67 97 3.0 07/24/16 02:00 Nasal Cannula 3.0 CPAP 07/24/16 00:37 36.7 67 20 187/83 97 CPAP 3.0 07/23/16 23:38 78 20 96 Nasal Cannula 3.0 07/23/16 19:10 71 18 96 Nasal Cannula 3.0 07/23/16 16:30 Nasal Cannula 3.0 07/23/16 16:05 36.4 66 20 168/72 95 3.0 07/23/16 15:49 67 18 92 Nasal Cannula 3.0 Physical Exam General Appearance: WD/WN, no apparent distress Neck: supple, no adenopathy Respiratory/Chest: normal breath sounds, + decreased breath sounds Cardiovascular: no edema, no gallop Abdomen: non tender, soft Neurologic/Psychiatric: alert, oriented x 3 Laboratory Results Last 24 Hours Test 07/23/16 16:52 07/23/16 20:36 07/24/16 07:47 07/24/16 07:55 Bedside Glucose 189 mg/dl 145 mg/dl 111 mg/dl White Blood Count 11.56 K/uL Red Blood Count 4.86 M/uL Hemoglobin 13.0 g/dL Hematocrit 40.5 % Mean Corpuscular Volume 83.3 fL Mean Corpuscular Hemoglobin 26.7 pg Mean Corpuscular Hemoglobin Concent 32.1 g/dl Platelet Count 290 K/uL Mean Platelet Volume 10.3 fL Neutrophils (%) (Auto) 71.1 % Lymphocytes (%) (Auto) 16.9 % Monocytes (%) (Auto) 9.7 % Eosinophils (%) (Auto) 2.0 % Basophils (%) (Auto) 0.0 % Neutrophils # (Auto) 8.22 K/uL Lymphocytes # (Auto) 1.95 K/uL Monocytes # (Auto) 1.12 K/uL Eosinophils # (Auto) 0.23 K/uL Basophils # (Auto) 0.00 K/uL RDW Standard Deviation 49.6 fL RDW Coefficient of Variation 16.4 % Immature Granulocyte % (Auto) 0.3 % Immature Granulocyte # (Auto) 0.04 K/uL Sodium Level 140 mmol/L Potassium Level 3.3 mmol/L Chloride Level 96 mmol/L Carbon Dioxide Level 35 mmol/L Anion Gap 9.0 mmol/L Blood Urea Nitrogen 31 mg/dl Creatinine 1.20 mg/dl Est Creatinine Clear Calc Drug Dose 66.5 ml/min Estimated GFR () 53.4 Estimated GFR (Non- 46.1 BUN/Creatinine Ratio 26.0 Random Glucose 113 mg/dl Calcium Level 9.0 mg/dl Magnesium Level 2.3 mg/dl Test 07/24/16 11:30 Bedside Glucose 79 mg/dl Assessment and Plan 70 years old woman , recently treated for DVT / PE admitted with acute SOB and hypoxic respiratory failure Acute hypoxic respiratory failure, multi factorial, S/P successful extubation, critical care consult appreciated COPD exacerbation, continue steroids/bronchodilators weaning, may require longer taper on prednisone underlying possible bronchitis/ levofloxacin x 2 days, DC due to border line QTc prolongation acute on chronic diastolic CHF exacerbation, cont bbcarlaer cozaar,currently po lasix and oxygenating well on nasal cannula, lung exam is slightly worse, check I/Os, plan to discharge on lasix 40mg PO daily plus metolazone 2.5mg po every other day with frequent renal function monitor as an out patient. DM - sliding scale Hypothyroid - cont synthroid HPL - cont statin full code, on coumadin, INR is therapeutic border line QTc prolongation; DC zofran, decrease paroxetine by half Order labs for am repeat CXR PT/OT * Echo 05/2016 -- Conclusions -- * Extremely limited study as the apatient is sitting up for study. * Left ventricular systolic function is normal. * Ejection Fraction = 50-55%. * The left ventricular wall motion is normal. * The RV is poorly visualized. In the Limitted views the RVOT portion does not seem dilated. * Additionally the interventricular septum does NOT appeared flattened. * Can not assess RV function. * There is severe mitral annular calcification. * Moderate mitral stenosis secondary to MAC (MG 5 mm/hg) * Diastolic dysfunction, Grade II (pseudonormalization pattern). * Elevated E to e' ratio. * There is trace tricuspid regurgitation. Could not assess PA pressures.
--- NOTE | 2016-07-24 15:08 | Pharmacy Progress Note ---
Glycemic: Assessment & Plan Date of Service Jul 24, 2016. Assessment & Plan The patient received 183 units of insulin on 07/22, 184 units on 07/23. BSGs ranging 79-189 mg/dl over the past 24hrs. BSG's trending down since Solumedrol switched to prednisone. Will loosen correction and carb ratio, check BSG overnight, and reassess in am. * Basal insulin: Lantus every 12 hours per protocol if BSG is less than 120, give 20 units if BSG is 121-199, give 35 units if BSG is 200 or more, give 45 units * Correctional Insulin: Novolog Correction per scale ACHS, extra check at 0200 Goal Range: Low 120 mg/dL - High 160 mg/dL Correction Factor: 15 mg/dL/unit * Prandial insulin: Per carb ratio of 1 unit per 5 grams CHO consumed BSGs continue to improve, no other changes needed to inpatient regimen at this time. Pharmacy will continue to monitor patient daily and write orders per [facility] inpatient glycemic control protocol. Thanks. * Please note that the plan above was derived based on current level of insulin resistance and hospital stress. These recommendations are appropriate for inpatient admission only. Plan of care upon discharge will need to be reassessed to avoid potential outpatient hypo/hyperglycemia.
[2016-07-24] MEDS: WARFARIN SOD 5 MG TAB PO SCH (16:00)
[2016-07-24] MEDS: SIMVASTATIN 40 MG TAB PO SCH (20:57)
[2016-07-24] MEDS: PAROXETINE 20 MG TAB PO SCH (21:28)
[2016-07-25 00:14] VITALS: BP 139/84; PULSE 73; TEMP 36.6; O2SAT 98
[2016-07-25] MEDS ORDERED: INSULIN ASPART 100 UNITS/ML 3 ML PEN SC SCH (02:00)
[2016-07-25] MEDS: ALBUT/IPRATROP 3MG/0.5MG NEB 3 ML VIAL INH SCH ×3 (04:01→11:15)
[2016-07-25 04:02] VITALS: PULSE 77; O2SAT 95
[2016-07-25] MEDS: LEVOTHYROXINE 75 MCG TAB PO SCH (06:38)
[2016-07-25] MEDS: LEVOTHYROXINE 200 MCG TAB PO SCH (06:38)
[2016-07-25 07:29] VITALS: BP 169/71; PULSE 68; TEMP 36.5; O2SAT 96
[2016-07-25 07:36] LABS: INR 2.3 (0.9-1.1); PROTHROMBIN TIME (PATIENT) 25.4 SECONDS (9.0-12.0)
[2016-07-25] MEDS: AMLODIPINE BESYLATE 5 MG TAB PO SCH (07:58)
[2016-07-25] MEDS: METOLAZONE 2.5 MG TAB PO SCH (07:58)
[2016-07-25] MEDS: ASPIRIN 81 MG CHEW PO SCH (07:59)
[2016-07-25] MEDS: PANTOprazole SOD 40 MG TAB PO SCH (07:59)
[2016-07-25] MEDS: FUROSEMIDE 40 MG TAB PO SCH (07:59)
[2016-07-25 08:28] VITALS: PULSE 72; O2SAT 92
[2016-07-25] MEDS: INSULIN ASPART 100 UNITS/ML 3 ML PEN SC SCH ×2 (08:40→12:45)
[2016-07-25] MEDS: INSULIN GLARGINE SOLOSTAR 100 UNITS/ML 3 ML PEN SC SCH (08:40)
[2016-07-25 08:49] LABS: BUN/CREATININE RATIO 26.5 (10-20); CREATININE 1.3 mg/dl (0.60-1.20)
[2016-07-25] MEDS ORDERED: ZRX25 PO (10:17)
[2016-07-25] MEDS ORDERED: PRD10 PO (10:17)
--- NOTE | 2016-07-25 10:20 | Discharge Instructions ---
Discharge Instructions Admission Reason for Admission: Chf Exacerbation, Copd Exacerbation Discharge Discharge Diagnosis / Problem: CHF exacerbation, COPD exacerbation Discharge Goals Goal(s): Decrease discomfort, Improve function, Increase independence, Improve disease control, Diagnostic testing, Therapeutic intervention Activity Recommendations Activity Limitations: resume your previous activity Shower/Bathe: no limitations . Instructions / Follow-Up Instructions / Follow-Up Patient to be discharged to [facility] Please take lasix 40 mg daily and additional lasix at night if weight gain>2 lbs Please also take metalozone once every other day Please take prednisone taper as directed (10 mg tablet) 4 pills x 3 days, 3 pills x 3 days, 2 pills x 3 days then 1 pill x 3 days then stop Please follow up with Dr Wanda Mooney in 1-2 weeks Current Hospital Diet Patient's current hospital diet: AHA Diet (Heart Healthy), Diabetes Type 2 Diet Discharge Diet Recommended Diet: Diabetes Type 2 Diet Pending Studies Studies pending at discharge: no Laboratory Results Hemoglobin A1c Test 07/20/16 05:45 Range/Units Estimated Average Glucose 163 mg/dl Hemoglobin A1c 7.3 H 4.5-5.6 % Medical Emergencies . Who to Call and When: Medical Emergencies: If at any time you feel your situation is an emergency, please call 911 immediately. . Non-Emergent Contact Non-Emergency issues call your: Primary Care Provider Call Non-Emergent contact if: you have a fever, your pain is worsening . . "Provider Documentation" section prepared by Naveed Lim. VTE Core Measure Inpt VTE Proph given/why not?: Warfarin (Coumadin)
[2016-07-25 11:15] VITALS: PULSE 81; O2SAT 92
[2016-07-25 14:18] VITALS: BP 169/71; PULSE 81; TEMP 36.5; O2SAT 92
--- NOTE | 2016-07-25 15:41 | Discharge Summary ---
Discharge Summary Date of Service Jul 25, 2016. 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 Metolazone (Metolazone) 2.5 Mg Tab 2.5 MG PO Q2D@0900, #15 TAB Continued Medications: Acetaminophen (Tylenol) 325 Mg Tab 650 MG PO Q4H PRN for Pain or Fever for 30 Days, #240 TAB Alendronate Sodium (Fosamax) 70 Mg Tab 70 MG PO WK Alprazolam (Alprazolam) 0.25 Mg Tab 0.25 MG PO Q8H PRN for Anxiety/Agitation for 7 Days, #21 TAB Amlodipine Besylate (Amlodipine Besylate) 5 Mg Tab 5 MG PO QAM for 30 Days, TAB Aspirin (Aspirin 81) 81 Mg Tab 81 MG PO HS Budesonide/Formoterol Fumarate (Symbicort 160/4.5 Inhaler) 120 Puffs/ Aero 2 PUFFS INH BID, 3 Refills RINSE MOUTH AFTER USE Calcium (Caltrate) 600 Mg Tab 600 MG PO DAILY Cholecalciferol (Vitamin D) 1,000 Inter.unit Tab 3000 INTER.UNIT PO DAILY, 0 Refills Cyanocobalamin (Vitamin B-12) 1,000 Mcg Tab 1000 MCG PO DAILY, 0 Refills Furosemide (Furosemide) 40 Mg Tab 40 MG PO DAILY for 30 Days, TAB and an extra 40mg qPM for weight gain > 2 lbs in one day Guaifenesin Ext Rel (Mucinex Ext Rel) 600 Mg Tabcr 1200 MG PO Q12 for 30 Days Insulin Aspart (Novolog Flexpen) 100 Units/Ml Inj 0 UNITS SC ACHS for 30 Days Insulin Human NPH (Novolin N) 100 Units/Ml Susp 130 UNITS SQ QDB for 30 Days Insulin Human NPH (Novolin N) 100 Units/Ml Susp 84 UNITS SQ QDD for 30 Days Ipratropium Emerson (Ipratropium Emerson) 0.5 Mg/2.5 Ml Nebu 0.5 MG INH Q4R for 30 Days Ipratropium Emerson (Ipratropium Emerson) 0.5 Mg/2.5 Ml Nebu 0.5 MG INH Q2R PRN for SOB/Wheezing for 30 Days Labetalol (Normodyne) 200 Mg Tab 800 MG PO QAM 4 TABLET DOSE Labetalol Hcl (Normodyne) 200 Mg Tab 600 MG PO HS 3 TABLET DOSE Labetalol (Normodyne) 200 Mg Tab 600 MG PO QPM, TAB Levalbuterol (Levalbuterol) 1.25 Mg/0.5 Ml Nebu 1.25 MG INH Q4R for 30 Days Levalbuterol (Levalbuterol) 1.25 Mg/0.5 Ml Nebu 1.25 MG INH Q2R PRN for SOB/Wheezing for 30 Days Levothyroxine Sodium (Synthroid) 75 Mcg Tab 75 MG PO QAM Levothyroxine Sodium (Synthroid) 200 Mcg Tab 200 MG PO QAM Losartan Potassium (Cozaar) 50 Mg Tab 1 TAB PO DAILY for 30 Days, #30 TAB 5 Refills Omeprazole (Prilosec) 20 Mg Capcr 20 MG PO QAM, CAP TAKE BEFORE BREAKFAST Oxygen (Oxygen) Gas 2 LITERS NA HS for 30 Days Paroxetine (Paxil) 40 Mg Tab 40 MG PO QPM, TAB Potassium Chloride (Micro-K Ext Rel) 10 Meq Capcr 20 MEQ PO DAILY, 0 Refills Simvastatin (Zocor) 40 Mg Tab 40 MG PO QPM, TAB Warfarin Sod (Coumadin) 5 Mg Tab 5 MG PO DAILY@16 for 30 Days, TAB Zolpidem Tartrate (Zolpidem Tartrate) 5 Mg Tab 10 MG PO HSZ PRN for Insomnia for 30 Days, TAB Discontinued Medications: Oseltamivir Phosphate (Tamiflu) 75 Mg Cap 75 MG PO BID for 2 Days, CAP last dose evening of 06/07/15 Prednisone (Prednisone) 20 Mg Tab 60 MG PO DAILY for 8 Days x 2 days then 40mg po daily x 2 days then 20mg po daily x 2 days then 10mg po daily x 2 days then stop Discharge Exam Review of Systems: Constitutional: No chills, No fever Respiratory: No cough, No dyspnea on exertion, No shortness of breath, No sputum, No wheezing Cardiovascular: No chest pain, No orthopnea Abdomen: No diarrhea, No nausea, No vomiting Musculoskeletal: No joint pain, No muscle pain Genitourinary - Female: No dysuria, No urinary frequency, No urinary urgency Neurologic: No paralysis, No weakness Physical Exam: General Appearance: WD/WN, no apparent distress Neck: supple, no adenopathy Respiratory/Chest: lungs clear, + decreased breath sounds Cardiovascular: no gallop, no JVD Abdomen / GI: non tender, soft Neurologic/Psychiatric: alert, oriented x 3 Hospital Course 70 years old woman , recently treated for DVT / PE admitted with acute SOB and hypoxic respiratory failure Acute hypoxic respiratory failure, multi factorial, S/P successful extubation, critical care consult appreciated COPD exacerbation, continue steroids/bronchodilators weaning underlying possible bronchitis/ levofloxacin x 2 days, DC due to border line QTc prolongation acute on chronic diastolic CHF exacerbation, cont garrett charles,currently po lasix and oxygenating well on nasal cannula, lung exam is slightly worse, check I/Os, plan to discharge on lasix 40mg PO daily plus metolazone 2.5mg po every other day with frequent renal function monitor as an out patient in addition to long prednisone taper DM - sliding scale Hypothyroid - cont synthroid HPL - cont statin full code, on coumadin, INR is therapeutic border line QTc prolongation; DC zofran, decrease paroxetine by half * Echo 05/2016 -- Conclusions -- * Extremely limited study as the apatient is sitting up for study. * Left ventricular systolic function is normal. * Ejection Fraction = 50-55%. * The left ventricular wall motion is normal. * The RV is poorly visualized. In the Limitted views the RVOT portion does not seem dilated. * Additionally the interventricular septum does NOT appeared flattened. * Can not assess RV function. * There is severe mitral annular calcification. * Moderate mitral stenosis secondary to MAC (MG 5 mm/hg) * Diastolic dysfunction, Grade II (pseudonormalization pattern). * Elevated E to e' ratio. * There is trace tricuspid regurgitation. Could not assess PA pressures. Total Time Spent: Greater than 30 minutes This includes examination of the patient, discharge planning, medication reconciliation, and communication with other providers. Discharge Instructions Please refer to the electronic Patient Visit Report (Discharge Instructions) for additional information. Additional Copies To RV. Jean Baptiste MD
== END 2016-07-25 14:35 | DRG 208 ==
LOC: ENRESERVTM → ENRESERVDT → C.EDB 23:03 → C.MSICU 07-19 01:00 → C.MS4W 07-21 13:26
PROVIDERS: ADMIT Internal Medicine; ATTEND Hospitalist
PROC: 5A1935Z Respiratory Ventilation, Less than 24 Consecutive Hours (ICD-10-PCS; principal; 2016-07-18)
PROC: 0BH18EZ Insertion of Endotracheal Airway into Trachea, Via Natural or Artificial Opening Endoscopic (ICD-10-PCS; principal; 2016-07-18)
DX: J96.01 Acute respiratory failure with hypoxia (principal); I50.33 Acute on chronic diastolic (congestive) heart failure; J44.1 Chronic obstructive pulmonary disease with (acute) exacerbation; Z68.42 Body mass index [BMI] 45.0-49.9, adult; E66.01 Morbid (severe) obesity due to excess calories; I44.7 Left bundle-branch block, unspecified; I11.0 Hypertensive heart disease with heart failure; E11.9 Type 2 diabetes mellitus without complications; E03.9 Hypothyroidism, unspecified; E78.5 Hyperlipidemia, unspecified; G47.33 Obstructive sleep apnea (adult) (pediatric); Z79.899 Other long term (current) drug therapy; Z79.4 Long term (current) use of insulin; Z79.82 Long term (current) use of aspirin; Z79.01 Long term (current) use of anticoagulants; Z79.52 Long term (current) use of systemic steroids; Z86.711 Personal history of pulmonary embolism; Z87.891 Personal history of nicotine dependence; Z83.3 Family history of diabetes mellitus; Z82.49 Family history of ischemic heart disease and other diseases of the circulatory system; Z84.1 Family history of disorders of kidney and ureter

== ENCOUNTER → 2016-09-17 | Outpatient (CLI) | payer OTHER ==
[~2016-09-17] MED LIST changes: +BUME1TAB45; +PRAM1TAB52 PO; +PRD10 PO; -PRD20 PO; -TMF75 PO; +WARF5TAB90 PO; +ZLF50 PO; +ZRX25 PO
[2016-09-17 15:10] LABS: INR 1.6 (0.9-1.1); PROTHROMBIN TIME (PATIENT) 17.4 SECONDS (9.0-12.0)
[2016-09-17 15:26] LABS: ESTIMATED AVERAGE GLUCOSE 203 mg/dl; HA1C FLAG Normal (Normal)
[2016-09-17 15:43] LABS: ALT/SGPT 24 U/L (12-78); AST/SGOT 15 U/L (15-37); BLOOD UREA NITROGEN 27 mg/dl (7-18); BUN/CREATININE RATIO 19.1 (10-20); CARBON DIOXIDE 30 mmol/L (21-32); CHLORIDE 105 mmol/L (98-107); GLUCOSE 119 mg/dl (70-99); POTASSIUM 3.5 mmol/L (3.5-5.1); SODIUM 145 mmol/L (136-145)
[2016-09-17 15:54] LABS: ALB/GLOB RATIO 0.9 (0.9-2); ALKALINE PHOSPHATASE 67 U/L (45-117); THYROID STIMULATING HORMONE 0.441 uIu/ml (0.300-4.500)
== END | disposition home or self-care (01) ==
LOC: C.LAB1850 13:01
PROVIDERS: ATTEND Internal Medicine
DX: I26.99 Other pulmonary embolism without acute cor pulmonale (principal); E03.9 Hypothyroidism, unspecified; E11.65 Type 2 diabetes mellitus with hyperglycemia

== ENCOUNTER → 2016-10-11 | Outpatient (CLI) | payer OTHER ==
[2016-10-11 14:38] LABS: HEMATOCRIT 38.5 % (37-47); MEAN CELL VOLUME 85.9 fL (80-100); MEAN CORPUSCULAR HGB CONC 31.4 g/dl (32-36); MEAN PLATELET VOLUME 10.9 fL (7.4-10.4); PLATELET COUNT 328 K/uL (130-400); RED BLOOD COUNT 4.48 M/uL (4.2-5.4); WHITE BLOOD COUNT 7.89 K/uL (4.8-10.8)
[2016-10-11 14:46] LABS: URINE APPEARANCE CLEAR (CLEAR); URINE BILIRUBIN NEG (NEG); URINE COLOR YELLOW; URINE NITRITE NEG (NEG); UROBILINOGEN NEG (NEG)
[2016-10-11 14:48] LABS: MANUAL MICROSCOPIC REQUIRED? NO; REVIEW REQ? NO
[2016-10-11 15:06] LABS: BLOOD UREA NITROGEN 46 mg/dl (7-18); BUN/CREATININE RATIO 25.3 (10-20); CALCIUM 9.9 mg/dl (8.5-10.1); CARBON DIOXIDE 36 mmol/L (21-32); CHLORIDE 98 mmol/L (98-107); GLUCOSE 130 mg/dl (70-99); PHOSPHORUS 4.1 mg/dl (2.5-4.9); POTASSIUM 3.2 mmol/L (3.5-5.1); SODIUM 141 mmol/L (136-145)
[2016-10-11 15:10] LABS: URINE TOTAL PROTEIN < 5.0 mg/dl (0-11.9)
== END | disposition home or self-care (01) ==
LOC: C.LAB1850 12:46
PROVIDERS: ATTEND Internal Medicine Nephrology
DX: I10 Essential (primary) hypertension (principal); N18.3 Chronic kidney disease, stage 3 (moderate); N25.81 Secondary hyperparathyroidism of renal origin; E55.9 Vitamin D deficiency, unspecified

== ENCOUNTER → 2016-10-26 | Outpatient (CLI) | payer OTHER ==
[2016-10-26 16:17] LABS: PROTHROMBIN TIME (PATIENT) 21.6 SECONDS (9.0-12.0)
== END | disposition home or self-care (01) ==
LOC: C.LAB1850 15:31
PROVIDERS: ATTEND Internal Medicine
DX: I26.99 Other pulmonary embolism without acute cor pulmonale (principal)

== ENCOUNTER → 2017-02-15 | Outpatient (CLI) | payer OTHER ==
[~2017-02-15] MED LIST changes: -BUME1TAB45; -PRAM1TAB52 PO; -WARF5TAB90 PO; -ZLF50 PO
[2017-02-15 14:50] LABS: INR 1.6 (0.9-1.1); PROTHROMBIN TIME (PATIENT) 17.4 SECONDS (9.0-12.0)
== END | disposition home or self-care (01) ==
LOC: C.LAB1850 13:51
PROVIDERS: ATTEND Internal Medicine
DX: I26.99 Other pulmonary embolism without acute cor pulmonale (principal)

== ENCOUNTER → 2017-03-11 | Outpatient (CLI) | payer OTHER ==
[2017-03-11 12:39] LABS: BLOOD UREA NITROGEN 41 mg/dl (7-18); BUN/CREATININE RATIO 25.4 (10-20); CARBON DIOXIDE 27 mmol/L (21-32); CHLORIDE 107 mmol/L (98-107); GLUCOSE 131 mg/dl (70-99); POTASSIUM 4.7 mmol/L (3.5-5.1); SODIUM 141 mmol/L (136-145)
[2017-03-11 13:02] LABS: ESTIMATED AVERAGE GLUCOSE 143 mg/dl; HA1C FLAG Normal (Normal)
[2017-03-14 12:31] LABS: ANTITHROMBINIII ACTIVITY** 105 % activity (80-120); B2 GLYCOPROTEIN IGA <9 SAU (<=20); B2 GLYCOPROTEIN IGG <9 SGU (<=20); B2 GLYCOPROTEIN IGM 28 SMU (<=20); DRVVT MIX INTERPRETAION Positive; LAC PTT SCREEN 81 sec (<=40); LUPUS ANTICOAGULANT** TC36573X Positive (Negative); PHOSPHATIDYLSERINE IGA <20 U/mL (<20); PHOSPHATIDYLSERINE IGG <10 U/mL (<10); PHOSPHATIDYLSERINE IGM <25 U/mL (<25); PROTEIN C ACTIVITY** TC 1777X 117 % (70-180); PROTEIN S ACT(FUNCT)**1779X 87 % (60-140)
[2017-03-14 12:58] LABS: DRVVT 1:1(REFLEX!DO NOT ORDER) NOT CORRECTED (CORRECTED); DRVVTNEUT(REFLEX!DO NOT ORDER) Positive (Negative); THROMBIN TIME(REFLEX!DO NOTORD 17 sec (13-19)
[2017-03-14 13:06] LABS: FACTOR VIII ACTIV**SEND TO GMC 79 % (55 - 145)
== END | disposition home or self-care (01) ==
LOC: C.LAB1850 11:15
PROVIDERS: ATTEND Physician Assistant
DX: I26.99 Other pulmonary embolism without acute cor pulmonale (principal); I50.32 Chronic diastolic (congestive) heart failure; E11.29 Type 2 diabetes mellitus with other diabetic kidney complication; Z79.4 Long term (current) use of insulin

== ENCOUNTER → 2017-05-20 | Outpatient (CLI) | payer OTHER ==
[~2017-05-20] MED LIST changes: -ALEN70TA2 PO; +BUME1TAB45; -CALCTAB5 PO; -CMD5 PO; -LSX40 PO; -NRV5 PO; -PARO1TAB29 PO; +PRAM1TAB52 PO; -PRD10 PO; +WARF5TAB90 PO; +ZLF50 PO
[2017-05-20 13:17] LABS: MEAN CELL VOLUME 85.5 fL (80-100); MEAN CORPUSCULAR HEMOGLOBIN 26.8 pg (25-34); MEAN CORPUSCULAR HGB CONC 31.4 g/dl (32-36); MEAN PLATELET VOLUME 10.9 fL (7.4-10.4); PLATELET COUNT 282 K/uL (130-400); RED BLOOD COUNT 4.21 M/uL (4.2-5.4); WHITE BLOOD COUNT 8.67 K/uL (4.8-10.8)
[2017-05-20 13:24] LABS: URINE APPEARANCE CLOUDY (CLEAR); URINE BILIRUBIN NEG (NEG); URINE COLOR YELLOW; URINE EPITHELIAL CELL AUTO >30 /lpf (0-5); URINE NITRITE NEG (NEG); UROBILINOGEN NEG (NEG); ZZUR CULT IF INDIC CLEAN CATCH YES
[2017-05-20 13:25] LABS: MANUAL MICROSCOPIC REQUIRED? NO; REVIEW REQ? NO
[2017-05-20 13:44] LABS: ALT/SGPT 25 U/L (12-78); BLOOD UREA NITROGEN 28 mg/dl (7-18); BUN/CREATININE RATIO 21.4 (10-20); CALCIUM 8.9 mg/dl (8.5-10.1); CARBON DIOXIDE 26 mmol/L (21-32); CHLORIDE 107 mmol/L (98-107); CHOLESTEROL 137 mg/dl (0-200); CREATININE 1.29 mg/dl (0.60-1.20); GLUCOSE 150 mg/dl (70-99); POTASSIUM 3.8 mmol/L (3.5-5.1); SODIUM 141 mmol/L (136-145)
[2017-05-20 13:48] LABS: ALB/GLOB RATIO 0.9 (0.9-2); ALKALINE PHOSPHATASE 81 U/L (45-117); AST/SGOT 12 U/L (15-37); CHOLESTEROL/HDL RATIO 4.3; HDL CHOLESTEROL 32 mg/dl; LDL CHOLESTEROL CALCULATED 65 mg/dl; TRIGLYCERIDES 199 mg/dl (0-150); VERY LOW DENSITY LIPOPROT CALC 40 mg/dl
[2017-05-20 14:48] LABS: URINE PROTIEN/CREAT RATIO 0.2 (0-0.2); URINE TOTAL PROTEIN 16.3 mg/dl (0-11.9)
== END | disposition home or self-care (01) ==
LOC: C.LAB1850 12:00
PROVIDERS: ATTEND Internal Medicine Nephrology
DX: I12.9 Hypertensive chronic kidney disease with stage 1 through stage 4 chronic kidney disease, or unspecified chronic kidney disease (principal); E11.22 Type 2 diabetes mellitus with diabetic chronic kidney disease; N18.3 Chronic kidney disease, stage 3 (moderate); N25.81 Secondary hyperparathyroidism of renal origin; E55.9 Vitamin D deficiency, unspecified; R39.9 Unspecified symptoms and signs involving the genitourinary system; Z79.4 Long term (current) use of insulin

== ENCOUNTER → 2017-06-18 | Outpatient (CLI) | payer OTHER ==
--- NOTE | 2017-06-18 16:12 | DIAGNOSTIC IMAGING REPORT ---
CHEST 2 VIEWS ROUTINE CLINICAL HISTORY: COUGH COMPARISON STUDY: 07/23/2016 FINDINGS: The heart is enlarged. There is mild interstitial thickening. This is likely accentuated by the patient's large body habitus. There is no focal pulmonary consolidation. There are no significant pleural effusions. There is mild fissural thickening.[ IMPRESSION: Cardiomegaly with very mild interstitial thickening/edema. No evidence of focal pulmonary consolidation Electronically signed by: Simon Walter M.D. 06/18/2017 4:10 PM Dictated Date/Time: 06/18/2017 4:09 PM
--- NOTE | 2017-06-18 16:12 | DIAGNOSTIC IMAGING REPORT ---
SINUSES MIN 3 VIEWS ROUTINE CLINICAL HISTORY: COUGH COMPARISON STUDY: No previous studies for comparison. FINDINGS: No air-fluid levels are visualized. There is no significant mucoperiosteal thickening. IMPRESSION: No conventional radiographic evidence of acute sinusitis. Electronically signed by: Simon Walter M.D. 06/18/2017 4:11 PM Dictated Date/Time: 06/18/2017 4:11 PM
== END | disposition home or self-care (01) ==
LOC: C.RAD1850 15:24
PROVIDERS: ATTEND Physician Assistant
DX: R05 Cough (principal); I51.7 Cardiomegaly

== ENCOUNTER 2017-07-25 10:44 | Inpatient (IN) | payer OTHER ==
[~2017-07-25] VITALS: Ht 167.6 cm; Wt 152.2 kg
--- NOTE | 2017-07-25 11:22 | EMERGENCY ROOM VISIT NOTE ---
History Report prepared by Kevin: Sangeeta Renner Under the Supervision of: Dr. Musa Fernandez D.O. First contact with patient: 11:15 Chief Complaint: RECTAL BLEEDING Stated Complaint: BLEEDING FROM RECTUM Nursing Triage Summary: triage note; pt reports "i have having rectal bleeding i thought it was just hemorrhoids but i am not sure now." pt reports rectal bleeding x 5 days "it is not getting any better." pt reports she is on coumadin. History of Present Illness The patient is a 71 year old female who presents to the Emergency Room with complaints of sudden rectal bleeding beginning 5 days ago. She states that at first she thought that it was hemorrhoids, but that it has not gotten any better. The patient denies having abdominal pain and fevers. She states that she is on water pills but that the swelling in her legs has not come down. The patient reports that she is on Warfarin because she had blood clots in her lungs. She states that she has a colonoscopy scheduled for December. Source of History: patient Onset: 5 days ago Position: other (rectum) Quality: other (bleeding ) Timing: other (sudden ) Associated Symptoms: No fevers, No abdominal pain Review of Systems See HPI for pertinent positives & negatives. A total of 10 systems reviewed and were otherwise negative. Past Medical & Surgical Medical Problems: (1) Bilateral pulmonary embolism (2) Cellulitis (3) CHF exacerbation (4) Diabetes (5) Hypertension Family History Cancer Diabetes mellitus FH: heart disease FHx: lung disease Hypertension Kidney disease Kidney stones Social History Smoking Status: Never Smoker Alcohol Use: none Drug Use: none Marital Status: Housing Status: lives with family Occupation Status: retired Current/Historical Medications Scheduled Albuterol Hfa (Ventolin Hfa), 2-4 PUFFS INH Q6H Aspirin (Aspirin Ec), 81 MG PO DAILY Budesonide/Formoterol Fumarate (Symbicort 160/4.5 Inhaler ), 2 PUFFS INH BID Bumetanide (Bumex), 2 MG PO BID Cholecalciferol (Vitamin D3), 3 TAB PO DAILY Cyanocobalamin (Vitamin B-12), 1,000 MCG PO DAILY Guaifenesin (Mucinex Maximum Strength), 1 TAB PO BID Home O2 Therapy (Oxygen), 2 LITERS NA PRN Insulin Isophane (Human) (Novolin N Relion), 90 UNITS SC QAM Insulin Isophane (Human) (Novolin N Relion), 84 UNITS SC DINNER Insulin Regular (Human) (Novolin R U-100), 1 DOSE SC UD Labetalol (Normodyne), 4 TAB PO BID Levalbuterol (Levalbuterol HCl), 1 DOSE NEB Q6H Levothyroxine Sodium (Levothyroxine Sodium), 1 TAB PO DAILY Levothyroxine Sodium (Levothyroxine Sodium), 1 TAB PO DAILY Losartan Potassium (Cozaar), 50 MG PO DAILY Metolazone (Zaroxolyn), 2.5 MG PO Q2D Omeprazole (Prilosec), 20 MG PO DAILY Potassium Ext Rel (Klor-Con), 3 TAB PO BID Pramipexole Dihydrochloride (Mirapex), 1 TAB PO HS Sertraline (Zoloft), 50 MG PO DAILY Simvastatin (Zocor), 20 MG PO QPM Warfarin Sodium (Coumadin), 5 MG PO DAILY Scheduled PRN Alprazolam (Xanax), 0.25 MG PO for Anxiety Diclofenac Sodium (Topical) (Voltaren 1% Top Gel), 1 APPLN TOP BID PRN for SHOULDERS Allergies Coded Allergies: Ibuprofen (Verified Allergy, Intermediate, HIVES, 07/25/17) Lisinopril (Verified Adverse Reaction, Mild, COUGH, 07/25/17) coughing Physical Exam Vital Signs Date Time Temp Pulse Resp B/P (MAP) Pulse Ox O2 Delivery O2 Flow Rate FiO2 07/25/17 15:31 118/58 07/25/17 15:30 75 37 94 Room Air 07/25/17 15:01 127/58 07/25/17 15:00 78 28 92 Room Air 07/25/17 14:31 114/47 07/25/17 14:30 79 23 92 Room Air 07/25/17 14:01 116/47 07/25/17 14:00 77 22 90 Room Air 07/25/17 13:30 117 26 103/50 95 Room Air 07/25/17 12:42 91 26 114/48 93 Room Air 07/25/17 11:39 84 07/25/17 11:36 91 24 116/62 94 Room Air 07/25/17 11:06 36.5 77 18 141/64 94 Room Air Physical Exam GENERAL: Patient is awake, alert, and in no acute distress. Patient is resting comfortably and showing no signs of anxiety EYES: The conjunctivae are clear. The pupils are round and reactive. EARS, NOSE, MOUTH AND THROAT: The nose is without any evidence of any deformity. Mucous membranes are moist tongue is midline NECK: The neck is nontender and supple. RESPIRATORY: No evidence of wheezing or rhonchi. Diminished breath sounds at both bases. Rales at both bases. CARDIOVASCULAR: Regular rate and rhythm noted there no murmurs rubs or gallops normal S1 normal S2 GASTROINTESTINAL: The abdomen is soft. Bowel sounds are present in all quadrants. Abdomen is nontender MUSCULOSKELETAL/EXTREMITIES: There is no evidence of gross deformity full range of motion is noted in the hips and shoulders SKIN: There is no obvious evidence of any rash. There are no petechiae, pallor or cyanosis noted. Pedeal edema bilaterally with venous stasis changes noted. NEUROLOGIC: Patient is awake alert and oriented x3 RECTAL: Brown stool which was heme positive. No external source of bleeding noted. Medical Decision & Procedures ER Provider Diagnostic Interpretation: Radiology results as stated below per my review and radiologist interpretation: KUB CLINICAL HISTORY: Generalized abdominal pain. Hematochezia. FINDINGS: 3 AP, portable, supine abdominal radiographs are correlated with abdominal CT dated 05/24/2016. The examination is degraded by large body habitus. No bowel obstruction is seen. No evidence of intraperitoneal free air is seen on these supine images. A calcified phlebolith is present in the left hemipelvis. The liver appears enlarged. The skeletal structures are osteopenic. Mild lumbosacral spondylosis is observed. IMPRESSION: Nonobstructed abdominal bowel gas pattern. Electronically signed by: Jayce Patterson M.D. 07/25/2017 11:53 AM Dictated Date/Time: 07/25/2017 11:52 AM CHEST ONE VIEW PORTABLE CLINICAL HISTORY: ABDOMINAL PAIN/GI pain. Bleeding. COMPARISON STUDY: 06/18/2017 FINDINGS: Moderate cardiomegaly slightly increased in the prior exam. Mild increase in pulmonary vasculature. Increase in density overlying the right hemithorax felt to represent overlying soft tissue. Diaphragms are smooth. There are no well-defined focal infiltrates. Mild chronic interstitial changes noted. IMPRESSION: 1. Chronic interstitial change. 2. Slightly progressive cardiomegaly with mild increase in pulmonary vasculature. 3. Components of mild congestive heart failure are most likely present. The above report was generated using voice recognition software. It may contain grammatical, syntax or spelling errors. Electronically signed by: Bharat Kitchen M.D. 07/25/2017 11:55 AM Dictated Date/Time: 07/25/2017 11:54 AM Laboratory Results 07/25/17 11:26 Red Blood Count 4.06, Mean Corpuscular Volume 85.7, Mean Corpuscular Hemoglobin 27.1, Mean Corpuscular Hemoglobin Concent 31.6, Mean Platelet Volume 10.6, Neutrophils (%) (Auto) 69.3, Lymphocytes (%) (Auto) 16.6, Monocytes (%) (Auto) 9.4, Eosinophils (%) (Auto) 4.0, Basophils (%) (Auto) 0.2, Neutrophils # (Auto) 6.14, Lymphocytes # (Auto) 1.47, Monocytes # (Auto) 0.83, Eosinophils # (Auto) 0.35, Basophils # (Auto) 0.02 07/25/17 11:26 Test 07/25/17 11:26 07/25/17 16:07 White Blood Count 8.85 K/uL (4.8-10.8) Red Blood Count 4.06 M/uL (4.2-5.4) Hemoglobin 11.0 g/dL (12.0-16.0) Hematocrit 34.8 % (37-47) Mean Corpuscular Volume 85.7 fL (80-100) Mean Corpuscular Hemoglobin 27.1 pg (25-34) Mean Corpuscular Hemoglobin Concent 31.6 g/dl (32-36) Platelet Count 284 K/uL (130-400) Mean Platelet Volume 10.6 fL (7.4-10.4) Neutrophils (%) (Auto) 69.3 % Lymphocytes (%) (Auto) 16.6 % Monocytes (%) (Auto) 9.4 % Eosinophils (%) (Auto) 4.0 % Basophils (%) (Auto) 0.2 % Neutrophils # (Auto) 6.14 K/uL (1.4-6.5) Lymphocytes # (Auto) 1.47 K/uL (1.2-3.4) Monocytes # (Auto) 0.83 K/uL (0.11-0.59) Eosinophils # (Auto) 0.35 K/uL (0-0.5) Basophils # (Auto) 0.02 K/uL (0-0.2) RDW Standard Deviation 50.1 fL (36.4-46.3) RDW Coefficient of Variation 15.9 % (11.5-14.5) Immature Granulocyte % (Auto) 0.5 % Immature Granulocyte # (Auto) 0.04 K/uL (0.00-0.02) Prothrombin Time 22.7 SECONDS (9.0-12.0) Prothromb Time International Ratio 2.2 (0.9-1.1) Activated Partial Thromboplast Time 45.2 SECONDS (21.0-31.0) Partial Thromboplastin Ratio 1.7 Anion Gap 6.0 mmol/L (3-11) Est Creatinine Clear Calc Drug Dose 49.1 ml/min Estimated GFR () 36.6 Estimated GFR (Non- 31.6 BUN/Creatinine Ratio 19.3 (10-20) Calcium Level 9.2 mg/dl (8.5-10.1) Total Bilirubin 0.6 mg/dl (0.2-1) Direct Bilirubin 0.1 mg/dl (0-0.2) Aspartate Amino Transf (AST/SGOT) 13 U/L (15-37) Alanine Aminotransferase (ALT/SGPT) 27 U/L (12-78) Alkaline Phosphatase 67 U/L (45-117) Total Protein 6.8 gm/dl (6.4-8.2) Albumin 3.2 gm/dl (3.4-5.0) Lipase 154 U/L (73-393) Laboratory results per my review. ED Course 1118: The patient was evaluated in room C8. A complete history and physical examination were performed. 1210: I checked on the patient. 1328: Upon reevaluation, the patient is resting. I discussed results and treatment plan with her. She verbalizes agreement and understanding. [facility] The patient will be evaluated for further management and care. Medical Decision Differential diagnosis: Etiologies such as diverticulosis, AVM, coagulopathy, colitis, inflammatory bowel disease, malignancy, Alyce-Duff tear, esophagitis, peptic ulcer disease , variceal bleed, gastritis, epistaxis, fissure, hemorrhoids, as well as others were entertained. Nursing notes reviewed. 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 The patient presented to the emergency department today with rectal bleeding. She describes the bleeding as bright red blood but no external source could be found. The patient was found to have an acceptable hemoglobin. I discussed the patient's laboratory and radiographic studies with her. At this time I feel given her anticoagulation use she may benefit from observation to ensure her hemoglobin does not drop in her bleeding does not continue. The [facility] hospitalist was notified about this patient. Medication Reconcilliation Current Medication List: was personally reviewed by me Blood Pressure Screening Patient's blood pressure: Elevated blood pressure will be monitored by hospitalist Consults Time Called: 1300 Consulting Physician: Dr. Klein- [place] Returned Call: [phone] The [facility] hospitalist was notified about the patient. Impression Primary Impression: Lower GI bleed Additional Impression: Current use of halfway anticoagulation Scribe Attestation The scribe's documentation has been prepared under my direction and personally reviewed by me in its entirety. I confirm that the note above accurately reflects all work, treatment, procedures, and medical decision making performed by me. Departure Information Dispostion Being Evaluated By Hospitalist Referrals RV. Jean Baptiste MD (PCP) Patient Instructions My [facility] Health Problem Qualifiers
[2017-07-25 11:51] LABS: BASO % 0.2 %; BASO ABS # 0.02 K/uL (0-0.2); EOS ABS # 0.35 K/uL (0-0.5); HEMATOCRIT 34.8 % (37-47); IG# 0.04 K/uL (0.00-0.02); LYMPH % 16.6 %; LYMPH ABS # 1.47 K/uL (1.2-3.4); MEAN CELL VOLUME 85.7 fL (80-100); MEAN CORPUSCULAR HEMOGLOBIN 27.1 pg (25-34); MEAN CORPUSCULAR HGB CONC 31.6 g/dl (32-36); MEAN PLATELET VOLUME 10.6 fL (7.4-10.4); MONO % 9.4 %; MONO ABS # 0.83 K/uL (0.11-0.59); NEUT % 69.3 %; NEUT ABS # 6.14 K/uL (1.4-6.5); PLATELET COUNT 284 K/uL (130-400); RED CELL DISTRIBUTION WIDTH CV 15.9 % (11.5-14.5); RED CELL DISTRIBUTION WIDTH SD 50.1 fL (36.4-46.3); WHITE BLOOD COUNT 8.85 K/uL (4.8-10.8)
--- NOTE | 2017-07-25 11:54 | DIAGNOSTIC IMAGING REPORT ---
KUB CLINICAL HISTORY: Generalized abdominal pain. Hematochezia. FINDINGS: 3 AP, portable, supine abdominal radiographs are correlated with abdominal CT dated 05/24/2016. The examination is degraded by large body habitus. No bowel obstruction is seen. No evidence of intraperitoneal free air is seen on these supine images. A calcified phlebolith is present in the left hemipelvis. The liver appears enlarged. The skeletal structures are osteopenic. Mild lumbosacral spondylosis is observed. IMPRESSION: Nonobstructed abdominal bowel gas pattern. Electronically signed by: Jayce Patterson M.D. 07/25/2017 11:53 AM Dictated Date/Time: 07/25/2017 11:52 AM
--- NOTE | 2017-07-25 11:57 | DIAGNOSTIC IMAGING REPORT ---
CHEST ONE VIEW PORTABLE CLINICAL HISTORY: ABDOMINAL PAIN/GI pain. Bleeding. COMPARISON STUDY: 06/18/2017 FINDINGS: Moderate cardiomegaly slightly increased in the prior exam. Mild increase in pulmonary vasculature. Increase in density overlying the right hemithorax felt to represent overlying soft tissue. Diaphragms are smooth. There are no well-defined focal infiltrates. Mild chronic interstitial changes noted. IMPRESSION: 1. Chronic interstitial change. 2. Slightly progressive cardiomegaly with mild increase in pulmonary vasculature. 3. Components of mild congestive heart failure are most likely present. The above report was generated using voice recognition software. It may contain grammatical, syntax or spelling errors. Electronically signed by: Bharat Kitchen M.D. 07/25/2017 11:55 AM Dictated Date/Time: 07/25/2017 11:54 AM
[2017-07-25] MEDS ORDERED: GUAI1TAB69 PO (11:58)
[2017-07-25] MEDS ORDERED: XPNINS NEB (11:58)
[2017-07-25] MEDS ORDERED: PRAM1TAB47 PO (11:58)
[2017-07-25] MEDS ORDERED: LEVO200T6 PO (11:58)
[2017-07-25] MEDS ORDERED: INSUINJ7 SC (11:58)
[2017-07-25] MEDS ORDERED: DICL1GEL12 TOP (11:58)
[2017-07-25] MEDS ORDERED: POTA20TA16 PO (11:58)
[2017-07-25] MEDS ORDERED: LEVO75TA5 PO (11:58)
[2017-07-25] MEDS ORDERED: LOSA50TA6 PO (11:58)
[2017-07-25] MEDS ORDERED: WARF5TAB90 PO (11:58)
[2017-07-25] MEDS ORDERED: VNTHFA/IN INH (11:58)
[2017-07-25] MEDS ORDERED: SERT50TA PO (11:58)
[2017-07-25] MEDS ORDERED: CYAN10005 PO (11:58)
[2017-07-25] MEDS ORDERED: ALPR0.25 PO (11:58)
[2017-07-25] MEDS ORDERED: BUME2TAB3 PO (11:58)
[2017-07-25] MEDS ORDERED: LABE1TAB28 PO (11:58)
[2017-07-25] MEDS ORDERED: ASPI81TA28 PO (11:58)
[2017-07-25] MEDS ORDERED: PRLSR20 PO (11:58)
[2017-07-25] MEDS ORDERED: SIMV20TA2 PO (11:58)
[2017-07-25] MEDS ORDERED: SYMIN160 INH (11:58)
[2017-07-25] MEDS ORDERED: OXGN (11:58)
[2017-07-25] MEDS ORDERED: CHOL1000 PO (11:58)
[2017-07-25] MEDS ORDERED: METO2.5T PO (11:58)
[2017-07-25] MEDS ORDERED: INSU0.01 SC ×2 (11:58)
[2017-07-25 12:08] LABS: ALBUMIN 3.2 gm/dl (3.4-5.0); CALCIUM 9.2 mg/dl (8.5-10.1); CREATININE 1.63 mg/dl (0.60-1.20); POTASSIUM 4.7 mmol/L (3.5-5.1)
[2017-07-25 12:09] LABS: INR 2.2 (0.9-1.1)
[2017-07-25 12:11] LABS: TOTAL PROTEIN 6.8 gm/dl (6.4-8.2)
[2017-07-25 12:15] LABS: PTT PATIENT 45.2 SECONDS (21.0-31.0)
[2017-07-25] MEDS ORDERED: ONDANSETRON INJ 2 MG/ML 2 ML VIAL IV PRN (15:45)
[2017-07-25] MEDS ORDERED: ALPRAZOLAM 0.25 MG TAB PO PRN (15:45)
[2017-07-25] MEDS ORDERED: POLYETHYLENE (MIRALAX) 17 GM PACK PO PRN (15:45)
[2017-07-25] MEDS ORDERED: ACETAMINOPHEN 325 MG TAB PO PRN (15:45)
[2017-07-25] MEDS ORDERED: DICLOFENAC SOD 1% GEL 100 GM TUBE EXT PRN (15:45)
[2017-07-25] MEDS ORDERED: GLUCOSE 10 TABS/TUBE PO PRN ×2 (16:15→16:30)
[2017-07-25] MEDS ORDERED: GLUCAGON FOR INJ 1 MG VIAL SQ PRN ×2 (16:15→16:30)
[2017-07-25] MEDS ORDERED: GLUCOSE 40% GEL 15 GM TUBE PO PRN ×2 (16:15→16:30)
[2017-07-25] MEDS ORDERED: DEXTROSE 50% 50 ML SYR IV PRN ×2 (16:15→16:30)
--- NOTE | 2017-07-25 16:25 | History and Physical ---
History & Physical Date & Time of Service: Jul 25, 2017 at 15:31 Chief Complaint: Bleeding From Rectum Primary Care Physician: RV. Jean Baptiste MD History of Present Illness Source: patient This is a 71-year-old female with past medical history of diastolic CHF grade 2 , hypertension, hyperlipidemia, anemiA of chronic disease,mitral stenosis, morbid obesity, CKD stage III, SHELIA on CPAP, COPD, RLL pulmonary nodule, chronic LLE DVT, bilateral pulmonary embolism on Coumadin. Patient presents for a GI bleed which started 5 days ago. She reports having 4-5 bowel movements daily and notes that this is unchanged. She was seeing bright red blood with wiping and in the toilet bowl. She denies any lightheadedness or dizziness. Patient' s daughters are present at bedside and reports she was more shaking this morning. The patient denies any abdominal pain, cramping, nausea or vomiting. Of note patient states that she is actually more concerned about her legs at this time. She has had worsening swelling and redness in bilateral lower extremities over the last 2-3 days. She does take Bumex and metolazone regularly. There is redness tracking up forward in the left leg to about her knee at this time. She denies any acute pain and has been ambulating without any difficulty. Here in the ER patient's hemoglobin is stable at 11.0, INR is equal to 2.2. She reports earlier this week INR was equal to 3.7, on Saturday and her dose has been reduced the past 3 nights. Chest x-ray reviewed showing some mild pulmonary edema. Past Medical/Surgical History Medical Problems: (1) Anemia (2) Bilateral pulmonary embolism (3) Cellulitis (4) CHF exacerbation (5) CKD (chronic kidney disease) stage 3, GFR 30-59 ml/min (6) Diabetes (7) Hypertension (8) Hypothyroidism (9) SHELIA on CPAP (10) Vitamin D deficiency Family History Cancer Diabetes mellitus FH: heart disease FHx: lung disease Hypertension Kidney disease Kidney stones Social History Smoking Status: Never Smoker Drug Use: none Marital Status: Housing status: lives with family Occupational Status: retired Immunizations History of Influenza Vaccine: N/A History of Tetanus Vaccine?: Yes History of Pneumococcal: Yes History of Hepatitis B Vaccine: Unknown Multi-Drug Resistant Organisms History of MDRO: No Allergies Coded Allergies: Ibuprofen (Verified Allergy, Intermediate, HIVES, 07/25/17) Lisinopril (Verified Adverse Reaction, Mild, COUGH, 07/25/17) coughing Home Medications Scheduled Albuterol Hfa (Ventolin Hfa), 2-4 PUFFS INH Q6H Aspirin (Aspirin Ec), 81 MG PO DAILY Budesonide/Formoterol Fumarate (Symbicort 160/4.5 Inhaler ), 2 PUFFS INH BID Bumetanide (Bumex), 2 MG PO BID Cholecalciferol (Vitamin D3), 3 TAB PO DAILY Cyanocobalamin (Vitamin B-12), 1,000 MCG PO DAILY Guaifenesin (Mucinex Maximum Strength), 1 TAB PO BID Home O2 Therapy (Oxygen), 2 LITERS NA PRN Insulin Isophane (Human) (Novolin N Relion), 90 UNITS SC QAM Insulin Isophane (Human) (Novolin N Relion), 84 UNITS SC DINNER Insulin Regular (Human) (Novolin R U-100), 1 DOSE SC UD Labetalol (Normodyne), 4 TAB PO BID Levalbuterol (Levalbuterol HCl), 1 DOSE NEB Q6H Levothyroxine Sodium (Levothyroxine Sodium), 1 TAB PO DAILY Levothyroxine Sodium (Levothyroxine Sodium), 1 TAB PO DAILY Losartan Potassium (Cozaar), 50 MG PO DAILY Metolazone (Zaroxolyn), 2.5 MG PO Q2D Omeprazole (Prilosec), 20 MG PO DAILY Potassium Ext Rel (Klor-Con), 3 TAB PO BID Pramipexole Dihydrochloride (Mirapex), 1 TAB PO HS Sertraline (Zoloft), 50 MG PO DAILY Simvastatin (Zocor), 20 MG PO QPM Warfarin Sodium (Coumadin), 5 MG PO DAILY Scheduled PRN Alprazolam (Xanax), 0.25 MG PO for Anxiety Diclofenac Sodium (Topical) (Voltaren 1% Top Gel), 1 APPLN TOP BID PRN for SHOULDERS Review of Systems Constitutional: No fever, sweats or chills Eyes: No diplopia, no worsening or blurred vision ENT: normal hearing, no trouble swallowing Respiratory: No cough, sputum, dyspnea at rest or on exertion Cardiovascular: No chest pain, tightness or palpitations Abdomen: See HPI. No pain, nausea, vomiting, diarrhea or constipation Buttock: small open pressure sore Musculoskeletal: + redness and swelling in BLE, worse in the left compared to R and feet are not involved, No joint pain, calf pain Neurologic: No weakness, numbness/tingling, or balance problems Psychiatric: No anxiety or depression Skin: No rash or itch Physical Exam Vital Signs Date Time Temp Pulse Resp B/P (MAP) Pulse Ox O2 Delivery O2 Flow Rate FiO2 07/25/17 14:31 114/47 07/25/17 14:30 79 23 92 Room Air 07/25/17 14:01 116/47 07/25/17 14:00 77 22 90 Room Air 07/25/17 13:30 117 26 103/50 95 Room Air 07/25/17 12:42 91 26 114/48 93 Room Air 07/25/17 11:39 84 07/25/17 11:36 91 24 116/62 94 Room Air 07/25/17 11:06 36.5 77 18 141/64 94 Room Air General: awake, alert, no apparent distress, morbidly obese Head: Normocephalic, atraumatic ENT: PERRL, EOMI, no pharyngeal exudate, mucous membranes moist Chest: Clear to auscultation, + faint expiratory wheeze in all barnes, on room air, no adventitious breath sounds Cardiac: Regular rate and rhythm, no murmur, no JVD, normal peripheral pulses, good capillary refill Abdominal: NABS x 4 quadrants, soft, nontender to palpation, no rebound, guarding or tenderness Extremities: + Lymphedema bilateral lower extremities with 2+ pitting edema, increased erythema and warmth over right and left, feet not involved, no peripheral edema or erythema, calfs nontender to palpation Psych: Normal mood and affect Neuro: AAO x 3, strength intact bilaterally and related 5/5, no motor deficits, speech is clear, no peripheral sensory deficits Diagnostics Laboratory Results Results Past 24 Hours Test 07/25/17 11:26 Range/Units White Blood Count 8.85 4.8-10.8 K/uL Red Blood Count 4.06 4.2-5.4 M/uL Hemoglobin 11.0 12.0-16.0 g/dL Hematocrit 34.8 37-47 % Mean Corpuscular Volume 85.7 80-100 fL Mean Corpuscular Hemoglobin 27.1 25-34 pg Mean Corpuscular Hemoglobin Concent 31.6 32-36 g/dl Platelet Count 284 130-400 K/uL Mean Platelet Volume 10.6 7.4-10.4 fL Neutrophils (%) (Auto) 69.3 % Lymphocytes (%) (Auto) 16.6 % Monocytes (%) (Auto) 9.4 % Eosinophils (%) (Auto) 4.0 % Basophils (%) (Auto) 0.2 % Neutrophils # (Auto) 6.14 1.4-6.5 K/uL Lymphocytes # (Auto) 1.47 1.2-3.4 K/uL Monocytes # (Auto) 0.83 0.11-0.59 K/uL Eosinophils # (Auto) 0.35 0-0.5 K/uL Basophils # (Auto) 0.02 0-0.2 K/uL RDW Standard Deviation 50.1 36.4-46.3 fL RDW Coefficient of Variation 15.9 11.5-14.5 % Immature Granulocyte % (Auto) 0.5 % Immature Granulocyte # (Auto) 0.04 0.00-0.02 K/uL Prothrombin Time 22.7 9.0-12.0 SECONDS Prothromb Time International Ratio 2.2 0.9-1.1 Activated Partial Thromboplast Time 45.2 21.0-31.0 SECONDS Partial Thromboplastin Ratio 1.7 Sodium Level 140 136-145 mmol/L Potassium Level 4.7 3.5-5.1 mmol/L Chloride Level 106 98-107 mmol/L Carbon Dioxide Level 28 21-32 mmol/L Anion Gap 6.0 3-11 mmol/L Blood Urea Nitrogen 31 7-18 mg/dl Creatinine 1.63 0.60-1.20 mg/dl Est Creatinine Clear Calc Drug Dose 49.1 ml/min Estimated GFR () 36.6 Estimated GFR (Non- 31.6 BUN/Creatinine Ratio 19.3 10-20 Random Glucose 174 70-99 mg/dl Calcium Level 9.2 8.5-10.1 mg/dl Total Bilirubin 0.6 0.2-1 mg/dl Direct Bilirubin 0.1 0-0.2 mg/dl Aspartate Amino Transf (AST/SGOT) 13 15-37 U/L Alanine Aminotransferase (ALT/SGPT) 27 12-78 U/L Alkaline Phosphatase 67 45-117 U/L Total Protein 6.8 6.4-8.2 gm/dl Albumin 3.2 3.4-5.0 gm/dl Lipase 154 73-393 U/L Diagnostic Radiology CHEST ONE VIEW PORTABLE CLINICAL HISTORY: ABDOMINAL PAIN/GI pain. Bleeding. COMPARISON STUDY: 06/18/2017 FINDINGS: Moderate cardiomegaly slightly increased in the prior exam. Mild increase in pulmonary vasculature. Increase in density overlying the right hemithorax felt to represent overlying soft tissue. Diaphragms are smooth. There are no well-defined focal infiltrates. Mild chronic interstitial changes noted. IMPRESSION: 1. Chronic interstitial change. 2. Slightly progressive cardiomegaly with mild increase in pulmonary vasculature. 3. Components of mild congestive heart failure are most likely present. The above report was generated using voice recognition software. It may contain grammatical, syntax or spelling errors. Electronically signed by: Bharat Kitchen M.D. 07/25/2017 11:55 AM Dictated Date/Time: 07/25/2017 11:54 AM The status of this report is Signed. KUB CLINICAL HISTORY: Generalized abdominal pain. Hematochezia. FINDINGS: 3 AP, portable, supine abdominal radiographs are correlated with abdominal CT dated 05/24/2016. The examination is degraded by large body habitus. No bowel obstruction is seen. No evidence of intraperitoneal free air is seen on these supine images. A calcified phlebolith is present in the left hemipelvis. The liver appears enlarged. The skeletal structures are osteopenic. Mild lumbosacral spondylosis is observed. IMPRESSION: Nonobstructed abdominal bowel gas pattern. Electronically signed by: Jayce Patterson M.D. 07/25/2017 11:53 AM Dictated Date/Time: 07/25/2017 11:52 AM The status of this report is Signed. Impression Assessment and Plan This is a 71-year-old female with past medical history of diastolic CHF grade 2 , DM II, hypertension, hyperlipidemia, anemia of chronic disease,mitral stenosis , morbid obesity, CKD stage III, SHELIA on CPAP, COPD, RLL pulmonary nodule, chronic LLE DVT, bilateral pulmonary embolism Jun 2016 on Coumadin. Patient presents for a GI bleed which started 5 days ago. She reports having 4-5 bowel movements daily and notes that this is unchanged. She was seeing bright red blood with wiping and in the toilet bowl. She reports hx of hemorrhoids. GI bleed - Admit the patient to telemetry - Start on Protonix IV twice daily for now - Hold Coumadin, INR is currently therapeutic at 2.2, follow INR daily - At this time the patient has actually seen a reduction in the amount of blood with BMs, also has a known history of hemorrhoids. She has had multiple colonoscopies at [facility], likely Dr. Mcallister - has a next scheduled in December of this year. For now we will hold off on any GI consult. Chronic peripheral edema with superimposed cellulitis BLE - MRSA swab, will start IV unasyn - Diuresis will be imperative in improvement CHF, diastolic grade II - Chest x-ray showing some mild pulmonary edema --use Bumex 3 mg BID IV ( instead of 2 mg PO) along with PO metolazone 2.5, place a Narayan for strict I's and O's, daily weights - check a BNP DM II - Continue on NPH 84 U Qpm and 90 U QAM - ISS with accuchecks - check a1c with am labs CKD stage III - Cr is at 1.63 and appears to be around her baseline, follow with daily PRP COPD SHELIA on cpap - Follows with Stepan Castañeda as an outpatient Hypothyroidism - Continue levothyroxine DVT ppx: Teds, scds, no no chemical anticoagulation in light of GI bleed CODE STATUS: Full code Disposition: Patient from home, lives with . Resident Physician Supervision Note: Pt evaluated independently. I discussed the case with the resident and agree with the findings and plan as documented in the note. Any exceptions or clarifications are listed here: CHF grade II diastolic, hypertension, hyperlipidemia, anemia of chronic disease , mitral stenosis, morbid obesity, CKD III, SHELIA, CPAP, COPD, chronic LLE DVT, bilateral pulmonary embolism on Coumadin. Presenting with LGI bleed, SOB and LE cellulitis. OE AAO x 3 S1,2 R Reduced air at bases NT, ND BL 3+ edema and BL erythema and warmth P: CHF exacerbation - placed on IV Bumex - I/O, daily weight - 02 protocol Cellulitis - Unasyn - may improve with diuresis as well GI bleed - suspect this is hemorrhoidal - clear diet - trend Hb - hold Coumadin - would not presently reverse Documented By: Ashok Klein Level of Care Telemetry Resuscitation Status FULL RESUSCITATION VTE Prophylaxis Risk Level: Very Low Given or contraindicated: Talia Redding, SCD's
[2017-07-25] MEDS ORDERED: BUMETANIDE 1 MG TAB PO SCH (17:00)
[2017-07-25 18:05] VITALS: BP 135/68; PULSE 78; TEMP 36.8; O2SAT 93
[2017-07-25] MEDS ORDERED: INSULIN HUMAN NPH SC SCH (18:57)
[2017-07-25] MEDS: ALBUTEROL HFA 8 GM INHALER INH SCH ×2 (19:12→20:29)
[2017-07-25] MEDS: BUMETANIDE IV 3 MG in SYRINGE 0 ML IV SCH (19:39)
[2017-07-25 19:51] VITALS: PULSE 72; O2SAT 96
[2017-07-25] MEDS: LEVALBUTEROL 1.25MG/3ML NEB INH SCH (19:51)
[2017-07-25] MEDS: AMPICILLIN/SULBACTAM SOD INJ 1,500 MG in SODIUM CHLORIDE 0.9% 100ML 100 ML IV SCH ×2 (20:11→23:30)
[2017-07-25] MEDS: INSULIN ASPART 100 UNITS/ML 3 ML PEN SC SCH (20:23)
[2017-07-25] MEDS: LABETALOL HCL 200 MG TAB PO SCH (20:25)
[2017-07-25] MEDS: PRAMIPEXOLE DIHYDROCHLORIDE 0.5 MG TAB PO SCH (20:26)
[2017-07-25] MEDS: SIMVASTATIN 20 MG TAB PO SCH (20:26)
[2017-07-25] MEDS: POTASSIUM CHLORIDE 20 MEQ TABCR PO SCH (20:27)
[2017-07-25] MEDS: GUAIFENESIN 600 MG TABCR PO SCH (20:28)
[2017-07-25] MEDS: BUDESONIDE/FORMOTEROL FUMARATE 160/4.5 60 PUFFS/INHALER INH SCH (20:29)
[2017-07-25 22:36] VITALS: BP 135/68; PULSE 78; TEMP 36.8; O2SAT 93; Ht 167.6 cm; Wt 152.2 kg
[2017-07-25] MEDS: PANTOprazole INJ 40 MG in SYRINGE 0 ML IV SCH (23:24)
[2017-07-26] VITALS (17 sets, daily range): BP systolic 104–146; BP diastolic 44–72; PULSE 61–83; TEMP 36.5–36.9; O2SAT 91–97
[2017-07-26] MEDS: LEVALBUTEROL 1.25MG/3ML NEB INH SCH ×4 (01:42→18:49)
[2017-07-26] MEDS: ALBUTEROL HFA 8 GM INHALER INH SCH ×4 (03:45→21:30)
[2017-07-26] MEDS: AMPICILLIN/SULBACTAM SOD INJ 1,500 MG in SODIUM CHLORIDE 0.9% 100ML 100 ML IV SCH ×3 (05:57→17:34)
[2017-07-26 06:16] LABS: BASO % 0.1 %; BASO ABS # 0.01 K/uL (0-0.2); HEMATOCRIT 33.4 % (37-47); HEMOGLOBIN 10.5 g/dL (12.0-16.0); IG# 0.02 K/uL (0.00-0.02); LYMPH % 20.3 %; LYMPH ABS # 1.51 K/uL (1.2-3.4); MEAN CELL VOLUME 86.1 fL (80-100); MEAN CORPUSCULAR HEMOGLOBIN 27.1 pg (25-34); MEAN CORPUSCULAR HGB CONC 31.4 g/dl (32-36); MEAN PLATELET VOLUME 10.5 fL (7.4-10.4); MONO % 10.3 %; MONO ABS # 0.77 K/uL (0.11-0.59); NEUT ABS # 4.83 K/uL (1.4-6.5); PLATELET COUNT 262 K/uL (130-400); RED CELL DISTRIBUTION WIDTH CV 16.1 % (11.5-14.5); RED CELL DISTRIBUTION WIDTH SD 50.9 fL (36.4-46.3); WHITE BLOOD COUNT 7.44 K/uL (4.8-10.8)
[2017-07-26 06:24] LABS: INR 2.1 (0.9-1.1)
[2017-07-26] MEDS: LEVOTHYROXINE 75 MCG TAB PO SCH (06:26)
[2017-07-26] MEDS: LEVOTHYROXINE 200 MCG TAB PO SCH (06:27)
[2017-07-26 06:45] LABS: CALCIUM 8.9 mg/dl (8.5-10.1); CREATININE 1.54 mg/dl (0.60-1.20); POTASSIUM 4.2 mmol/L (3.5-5.1)
[2017-07-26 07:19] LABS: HEMOGLOBIN A1C 7.3 % (4.5-5.6)
[2017-07-26] MEDS: BUMETANIDE IV 3 MG in SYRINGE 0 ML IV SCH ×2 (08:11→16:57)
[2017-07-26] MEDS: PANTOprazole INJ 40 MG in SYRINGE 0 ML IV SCH (08:12)
[2017-07-26] MEDS: LABETALOL HCL 200 MG TAB PO SCH ×2 (08:13→21:20)
[2017-07-26] MEDS: GUAIFENESIN 600 MG TABCR PO SCH ×2 (08:15→21:19)
--- NOTE | 2017-07-26 08:15 | Clinical Documentation Query ---
CLINICAL DOCUMENTATION QUERY Ms. ANTHONY: In your clinical opinion is this patient being managed for: ( x ) GI bleed/hemorrhoidal bleeding due to chronic coumadin therapy ( ) Not Agree ( ) Other explanation of clinical findings (Please Explain) ( ) Unable to determine (Please Define) ( ) Need to Discuss The medical record reflects the following clinical findings, treatment, and risk factors. Clinical Indicators: 71 yo female presenting with sudden onset of rectal bleeding 5 days prior. Pt reported she had an INR of 3.7 on 07/22 and had reduced coumadin doses x 3 nights. INR 2.2 upon arrival to ER and also documentation reflects pt has noticed an actual reduction in the amount of bleeding since initial onset. Treatment: tele, IV protonix bid, hold coumadin, daily INR, Risk Factors: supratherapeutic INR on chronic coumadin therapy Please clarify and document your clinical opinion in the progress notes and discharge summary. Terms such as "probable", "suspected", "likely", "questionable", "possible", or "still to be ruled out" are acceptable. IF IN AGREEMENT, YOU MUST DOCUMENT ABOVE DIAGNOSTIC STATEMENT IN DAILY PROGRESS NOTES AND DISCHARGE SUMMARY. This document is not part of the patient's record. Thank You, Chen Wharton, RN [phone]
[2017-07-26] MEDS: LOSARTAN POTASSIUM 50 MG TAB PO SCH (08:16)
[2017-07-26] MEDS: CHOLECALCIFEROL 1000 INTER.UNIT TAB PO SCH (08:17)
[2017-07-26] MEDS: SERTRALINE HCL 50 MG TAB PO SCH (08:17)
[2017-07-26] MEDS: CYANOCOBALAMIN 500 MCG TAB (VIT B-12) PO SCH (08:18)
[2017-07-26] MEDS: METOLAZONE 2.5 MG TAB PO SCH (08:18)
[2017-07-26] MEDS: BUDESONIDE/FORMOTEROL FUMARATE 160/4.5 60 PUFFS/INHALER INH SCH ×2 (08:19→21:16)
[2017-07-26] MEDS: POTASSIUM CHLORIDE 20 MEQ TABCR PO SCH ×2 (08:20→21:19)
[2017-07-26] MEDS: INSULIN ASPART 100 UNITS/ML 3 ML PEN SC SCH ×4 (08:33→21:30)
[2017-07-26] MEDS: INSULIN HUMAN NPH SC SCH ×2 (08:35→17:31)
[2017-07-26] MEDS ORDERED: NURSING VERBAL MED ORDER ONE ×2 (08:45→12:15)
[2017-07-26] MEDS: ASPIRIN 81 MG ECTAB PO SCH (11:48)
--- NOTE | 2017-07-26 11:48 | Hospitalist Progress Note ---
Hospitalist Progress Note Date of Service Jul 26, 2017. Subjective Pt evaluation today including: conversation w/ patient, physical exam, chart review, lab review, review of studies, review of inpatient medication list Pain: None PO Intake: Tolerating PO diet Voiding: paredes catheter in place Patient complains of shortness of breath that is unchanged from yesterday. She does report a non-productive cough that has been going on for the last 3 months but is finally improving. She reports feeling fatigued. She feels that the erythema in her LLE is improving, stating that the erythema previously had been up to her knee but is now going down. She states her swelling is about the same , and that her LLE has always been bigger than the RLE. She does report some nausea but denies any vomiting or decrease in appetite. The patient denies fevers, chills, sweats, chest pain, palpitations, claudication, wheezing, vomiting, abdominal pain, dysuria, hematuria, urinary retention, paralysis, weakness, numbness and tingling. Additional Comments: See HPI for pertinent positives and negatives. All other systems reviewed and negative. Objective Vital Signs Date Time Temp Pulse Resp B/P (MAP) Pulse Ox O2 Delivery O2 Flow Rate FiO2 07/26/17 11:23 36.7 66 20 114/65 (81) 93 07/26/17 08:11 75 126/65 (85) 93 Room Air 07/26/17 08:00 93 Room Air 07/26/17 07:30 36.7 68 18 122/70 (87) 96 07/26/17 07:28 79 16 97 Nasal Cannula 2.0 07/26/17 04:00 Room Air 07/26/17 04:00 36.6 75 18 133/68 (89) 96 Nasal Cannula 2.0 07/26/17 01:42 71 16 96 Nasal Cannula 2.0 07/26/17 00:00 36.9 69 20 130/70 (90) 95 Nasal Cannula 2.0 07/26/17 00:00 Room Air 07/25/17 22:36 36.8 78 16 135/68 93 Room Air 07/25/17 19:51 72 16 96 Room Air 07/25/17 18:05 36.8 78 24 135/68 (90) 93 Room Air 07/25/17 17:38 118 18 118/59 93 07/25/17 17:28 118 18 118/59 93 Room Air 07/25/17 16:31 113/56 07/25/17 16:30 77 21 92 Room Air 07/25/17 16:02 07/25/17 16:00 82 26 94 Room Air 07/25/17 15:31 118/58 07/25/17 15:30 75 37 94 Room Air 07/25/17 15:01 127/58 07/25/17 15:00 78 28 92 Room Air 07/25/17 14:31 114/47 07/25/17 14:30 79 23 92 Room Air 07/25/17 14:01 116/47 07/25/17 14:00 77 22 90 Room Air 07/25/17 13:30 117 26 103/50 95 Room Air 07/25/17 12:42 91 26 114/48 93 Room Air Physical Exam Notes: General appearance: +Morbidly obese. Well-developed, well-nourished, no apparent distress Head: Normocephalic, atraumatic Eyes: Normal inspection, PERRL, EOMI ENT: Normal ENT inspection, hearing grossly normal, pharynx normal Neck: Supple, no JVD, trachea midline Respiratory/Chest: +Decreased breath sounds in bases. Lungs clear to auscultation, no respiratory distress Cardiovascular: Regular rate & rhythm, no gallop, no murmur Abdomen/GI: Normal bowel sounds, non-tender, soft Extremities/Musculoskeletal: +Chronic venous stasis changes bilaterally. Superimposed erythema on LLE on lateral lower leg & warm to touch. Erythema stops a few inches below knee (had been up to knee yesterday per pt). 1+ pitting edema bilaterally, mildly TTP with slightly more tenderness LLE. No calf tenderness Neurological/Psych: Alert, normal mood/affect, oriented x 3 Skin: Normal color, warm/dry, no rash Laboratory Results Last 24 Hours Test 07/25/17 18:25 07/26/17 05:51 07/26/17 08:09 Bedside Glucose 137 mg/dl 130 mg/dl White Blood Count 7.44 K/uL Red Blood Count 3.88 M/uL Hemoglobin 10.5 g/dL Hematocrit 33.4 % Mean Corpuscular Volume 86.1 fL Mean Corpuscular Hemoglobin 27.1 pg Mean Corpuscular Hemoglobin Concent 31.4 g/dl Platelet Count 262 K/uL Mean Platelet Volume 10.5 fL Neutrophils (%) (Auto) 65.0 % Lymphocytes (%) (Auto) 20.3 % Monocytes (%) (Auto) 10.3 % Eosinophils (%) (Auto) 4.0 % Basophils (%) (Auto) 0.1 % Neutrophils # (Auto) 4.83 K/uL Lymphocytes # (Auto) 1.51 K/uL Monocytes # (Auto) 0.77 K/uL Eosinophils # (Auto) 0.30 K/uL Basophils # (Auto) 0.01 K/uL RDW Standard Deviation 50.9 fL RDW Coefficient of Variation 16.1 % Immature Granulocyte % (Auto) 0.3 % Immature Granulocyte # (Auto) 0.02 K/uL Prothrombin Time 21.9 SECONDS Prothromb Time International Ratio 2.1 Sodium Level 141 mmol/L Potassium Level 4.2 mmol/L Chloride Level 105 mmol/L Carbon Dioxide Level 29 mmol/L Anion Gap 7.0 mmol/L Blood Urea Nitrogen 28 mg/dl Creatinine 1.54 mg/dl Est Creatinine Clear Calc Drug Dose 51.9 ml/min Estimated GFR () 39.2 Estimated GFR (Non- 33.8 BUN/Creatinine Ratio 17.9 Random Glucose 132 mg/dl Estimated Average Glucose 163 mg/dl Hemoglobin A1c 7.3 % Calcium Level 8.9 mg/dl Assessment and Plan 71 y/o female with a history of chronic diastolic CHF, HTN, HLD, COPD, DM II, anemia of chronic disease, CKD stage III, SHELIA on CPAP, chronic lymphedema, chronic LLE DVT, h/o b/l PE Jun 2016 who presents with BRBPR and lower extremity cellulitis. Lower GI bleed likely due to hemorrhoids, chronic anemia--resolving. Pt reports no BRBPR today - Admit the patient to telemetry. No acute events overnight. Pt in SR with HR 60s-70s - Continue to hold warfarin. GI bleed could be due to chronic warfarin therapy , occurring in the setting of chronic anticoagulation. INR 2.1 on 07/26. - Convert IV Protonix to 40 mg PO BID - Increase to AHA/DM diet, stop clears - Hgb stable at 10.5, baseline 11-12 Chronic peripheral edema with superimposed cellulitis in lower extremities L>R-- erythema improving per pt - Unasyn day #2 Mild acute exacerbation of diastolic CHF--improving - CXR w/pulmonary edema - Bumex 3 mg IV BID, metolazone 2.5 mg PO qd - Good urine output, 2600 cc urine so far today - Monitor I's & O's, daily weights HTN, HLD--stable -Continue labetalol 800 mg PO BID, losartan 50 mg PO qd, Zocor 20 mg PO hs COPD--stable, no wheezing on exam -Continue Symbicort BID DM II--stable - Continue on NPH 84 U Qpm and 90 U QAM - Insulin sliding scale - Check BSGs q ac and qhs - HgbA1c 7.3 on 07/26 CKD stage III--stable - Creatinine remains stable, at baseline Hypothyroidism - Continue levothyroxine 275 mcg PO qd Chronic LLE DVT, h/o b/l PE -Warfarin on hold due to bleeding Anxiety/depression -Continue Zoloft 50 mg PO qd, prn Xanax DVT prophylaxis -Hold chemical ppx due to bleed -BETTY tapia and SCDs
[2017-07-26] MEDS: MICONAZOLE NITRATE POWDER 43 GM EXT PRN (12:26)
[2017-07-26] MEDS ORDERED: EUCERIN CR 120 GM JAR EXT SCH (12:45)
[2017-07-26] MEDS: PRAMIPEXOLE DIHYDROCHLORIDE 0.5 MG TAB PO SCH (21:19)
[2017-07-26] MEDS: PANTOprazole SOD 40 MG TAB PO SCH (21:20)
[2017-07-26] MEDS: SIMVASTATIN 20 MG TAB PO SCH (21:20)
[2017-07-27] VITALS (10 sets, daily range): BP systolic 97–132; BP diastolic 53–73; PULSE 65–76; TEMP 36.6–37; O2SAT 90–96
[2017-07-27] MEDS: AMPICILLIN/SULBACTAM SOD INJ 1,500 MG in SODIUM CHLORIDE 0.9% 100ML 100 ML IV SCH ×4 (00:19→17:19)
[2017-07-27] MEDS: LEVALBUTEROL 1.25MG/3ML NEB INH SCH ×4 (02:12→19:12)
[2017-07-27] MEDS: ALBUTEROL HFA 8 GM INHALER INH SCH ×4 (03:45→21:03)
[2017-07-27] MEDS: LEVOTHYROXINE 75 MCG TAB PO SCH (06:10)
[2017-07-27] MEDS: LEVOTHYROXINE 200 MCG TAB PO SCH (06:11)
--- NOTE | 2017-07-27 07:24 | DIAGNOSTIC IMAGING REPORT ---
BILATERAL LOWER EXTREMITY VENOUS DOPPLER CLINICAL HISTORY: rule out DVT (previous DVT) COMPARISON STUDY: Bilateral lower extremity venous Doppler July 19, 2016. TECHNIQUE: Sonography of the deep venous system of the bilateral lower extremities was performed. Compression and augmentation were evaluated. FINDINGS: The bilateral common femoral, superficial femoral and popliteal veins were compressible. Augmentation was normal. Flow was shown within the deep calf vessels although the calf vessels were partially obscured on this exam. IMPRESSION: No evidence of deep venous thrombus within the bilateral lower extremities. Suboptimal evaluation of the calf vessels. Electronically signed by: Turner Pollock M.D. 07/27/2017 7:22 AM Dictated Date/Time: 07/27/2017 7:21 AM
[2017-07-27 08:02] LABS: BASO % 0.1 %; BASO ABS # 0.01 K/uL (0-0.2); EOS % 3.6 %; EOS ABS # 0.29 K/uL (0-0.5); HEMATOCRIT 34.3 % (37-47); HEMOGLOBIN 10.7 g/dL (12.0-16.0); IG# 0.01 K/uL (0.00-0.02); LYMPH % 17.9 %; LYMPH ABS # 1.45 K/uL (1.2-3.4); MEAN CELL VOLUME 86.4 fL (80-100); MEAN CORPUSCULAR HGB CONC 31.2 g/dl (32-36); MEAN PLATELET VOLUME 10.8 fL (7.4-10.4); MONO % 8.1 %; MONO ABS # 0.66 K/uL (0.11-0.59); NEUT % 70.2 %; NEUT ABS # 5.68 K/uL (1.4-6.5); PLATELET COUNT 267 K/uL (130-400); RED CELL DISTRIBUTION WIDTH CV 15.9 % (11.5-14.5); RED CELL DISTRIBUTION WIDTH SD 50.8 fL (36.4-46.3)
[2017-07-27 08:09] LABS: INR 1.9 (0.9-1.1)
[2017-07-27] MEDS: MICONAZOLE NITRATE POWDER 43 GM EXT PRN (08:24)
[2017-07-27] MEDS: BUMETANIDE IV 3 MG in SYRINGE 0 ML IV SCH (08:24)
[2017-07-27] MEDS: CYANOCOBALAMIN 500 MCG TAB (VIT B-12) PO SCH (08:24)
[2017-07-27] MEDS: CHOLECALCIFEROL 1000 INTER.UNIT TAB PO SCH (08:25)
[2017-07-27] MEDS: PANTOprazole SOD 40 MG TAB PO SCH ×2 (08:25→21:06)
[2017-07-27] MEDS: POTASSIUM CHLORIDE 20 MEQ TABCR PO SCH ×2 (08:25→21:05)
[2017-07-27] MEDS: GUAIFENESIN 600 MG TABCR PO SCH ×2 (08:25→21:03)
[2017-07-27] MEDS: ASPIRIN 81 MG ECTAB PO SCH (08:25)
[2017-07-27] MEDS: BUDESONIDE/FORMOTEROL FUMARATE 160/4.5 60 PUFFS/INHALER INH SCH ×2 (08:26→21:02)
[2017-07-27] MEDS: LOSARTAN POTASSIUM 50 MG TAB PO SCH (08:26)
[2017-07-27] MEDS: SERTRALINE HCL 50 MG TAB PO SCH (08:26)
[2017-07-27] MEDS: LABETALOL HCL 200 MG TAB PO SCH ×2 (08:26→21:06)
[2017-07-27 08:37] LABS: CREATININE 1.89 mg/dl (0.60-1.20); POTASSIUM 3.9 mmol/L (3.5-5.1)
[2017-07-27] MEDS: INSULIN HUMAN NPH SC SCH ×2 (08:38→17:14)
[2017-07-27] MEDS: INSULIN ASPART 100 UNITS/ML 3 ML PEN SC SCH ×4 (08:38→21:00)
--- NOTE | 2017-07-27 15:15 | Progress Note ---
Subjective Date of Service: Jul 27, 2017. Subjective Pt evaluation today including: conversation w/ patient, physical exam, lab review, review of inpatient medication list Pain: no pain PO Intake: adequate Voiding: no voiding problems feels like she is continuing to make more urine than normal for her, cumulatively negative for 3900mL Cr trending up to 1.8 eating well less redness in left leg, less pain, no fever, WBC normal discussed going back to Bumex PO and following Cr no further bleeding, INR is < 2.0 today Problem List Medical Problems: (1) Acute respiratory failure Status: Acute (2) Bilateral lower leg cellulitis Status: Acute (3) CHF (congestive heart failure) Status: Acute (4) Current use of mcfp anticoagulation Status: Acute (5) Dyspnea Status: Acute (6) Fluid overload Status: Acute (7) Hypercarbia Status: Acute (8) Left leg cellulitis Status: Acute (9) Lower GI bleed Status: Acute (10) Lump in throat Status: Acute (11) Morbid obesity Status: Acute (12) Pneumonia Status: Acute (13) Respiratory acidosis Status: Acute (14) Shortness of breath Status: Acute Review of Systems Constitutional: + weakness, + fatigue Respiratory: + dyspnea on exertion Cardiac: + edema Skin: + color change (chronic venous stasis changes, less erythema today) All Other Systems: Reviewed and Negative Medications Current Inpatient Medications Medications (Trade) Dose Ordered Sig/Marcelina Route Start Time Stop Time Status Last Admin Dose Admin Acetaminophen (Tylenol Tab) 650 mg Q4H PRN PO 07/25/17 15:45 08/24/17 15:44 Ondansetron HCl (Zofran Inj) 4 mg Q6H PRN IV 07/25/17 15:45 08/24/17 15:44 Polyethylene (Miralax Powder Packet) 17 gm DAILY PRN PO 07/25/17 15:45 08/24/17 15:44 Albuterol (Ventolin Hfa Inhaler) 2 puffs Q6H INH 07/25/17 15:45 08/24/17 15:44 07/27/17 08:24 2 PUFFS Alprazolam (Xanax Tab) 0.25 mg DAILY PRN PO 07/25/17 15:45 08/24/17 15:44 Aspirin (Ecotrin Tab) 81 mg DAILY PO 07/26/17 09:00 08/25/17 08:59 07/27/17 08:25 81 MG Budesonide/ Formoterol Fumarate (Symbicort 160/ 4.5 Inh) 2 puffs BID INH 07/25/17 21:00 08/24/17 20:59 07/27/17 08:26 2 PUFFS Cholecalciferol (Vitamin D Tab) 3,000 inter.unit DAILY PO 07/26/17 09:00 08/25/17 08:59 07/27/17 08:25 3,000 INTER.UNIT Cyanocobalamin (Vitamin B-12 Tab) 1,000 mcg DAILY PO 07/26/17 09:00 08/25/17 08:59 07/27/17 08:24 1,000 MCG Diclofenac Sodium (Voltaren 1% Top Gel) 1 appln BID PRN EXT 07/25/17 15:45 08/24/17 15:44 Insulin Human NPH (novoLIN-N NPH) 90 units DAILY@0700 SC 07/26/17 07:00 08/25/17 06:59 07/27/17 08:38 90 UNITS Labetalol HCl (Normodyne Tab) 800 mg BID PO 07/25/17 21:00 08/24/17 20:59 07/27/17 08:26 800 MG Levothyroxine Sodium (Synthroid Tab) 75 mcg DAILYBB PO 07/26/17 06:30 08/25/17 06:29 07/27/17 06:10 75 MCG Levothyroxine Sodium (Synthroid Tab) 200 mcg DAILYBB PO 07/26/17 06:30 08/25/17 06:29 07/27/17 06:11 200 MCG Losartan Potassium (coZAAR TAB) 50 mg DAILY PO 07/26/17 09:00 08/25/17 08:59 07/27/17 08:26 50 MG Metolazone (Zaroxolyn Tab) 2.5 mg Q2D@0900 PO 07/26/17 09:00 08/25/17 08:59 07/26/17 08:18 2.5 MG Potassium Chloride (Klor-Con Tab) 60 meq BID PO 07/25/17 21:00 08/24/17 20:59 07/27/17 08:25 60 MEQ Pramipexole Dihydrochloride (miraPEX TAB) 0.5 mg HS PO 07/25/17 21:00 08/24/17 20:59 07/26/17 21:19 0.5 MG Sertraline HCl (Zoloft Tab) 50 mg DAILY PO 07/26/17 09:00 08/25/17 08:59 07/27/17 08:26 50 MG Simvastatin (Zocor Tab) 20 mg QPM PO 07/25/17 21:00 08/24/17 20:59 07/26/17 21:20 20 MG Guaifenesin (Mucinex Contr Rel Tab) 1,200 mg BID PO 07/25/17 21:00 08/24/17 20:59 07/27/17 08:25 1,200 MG Levalbuterol (Xopenex 1.25MG/ 3ML Neb) 1.25 mg Q6R INH 07/25/17 21:00 08/24/17 20:59 07/27/17 14:41 1.25 MG Glucose (Glucose 40% Gel) 15-30 GRAMS 15 GRAMS... UD PRN PO 07/25/17 16:15 08/24/17 16:14 Glucose (Glucose Chew Tab) 4-8 Tablets 4 Tabl... UD PRN PO 07/25/17 16:15 08/24/17 16:14 Dextrose (Dextrose 50% 50ML Syringe) 25-50ML OF 50% DW IV FOR... UD PRN IV 07/25/17 16:15 08/24/17 16:14 Glucagon (Glucagon Inj) 1 mg UD PRN SQ 07/25/17 16:15 08/24/17 16:14 Insulin Aspart (novoLOG ASPART) SLIDING SCALE If C... ACHS SC 07/25/17 21:00 08/24/17 20:59 07/27/17 12:19 7 UNITS Ampicillin Sodium/ Sulbactam Sodium 1500 mg/Sodium Chloride 104 ml @ 200 mls/hr Q6 IV 07/25/17 18:50 08/04/17 17:59 07/27/17 11:41 200 MLS/HR Insulin Human NPH (novoLIN-N NPH) 42 units DAILY@1700 SC 07/26/17 17:00 08/24/17 18:56 07/26/17 17:31 42 UNITS Miconazole Nitrate (Desenex Powder) 1 appln PRN PRN EXT 07/26/17 09:00 08/25/17 08:59 07/27/17 08:24 1 APPLN Multi-Ingredient Ointment (Eucerin Unscented Cr) 1 appln UD PRN EXT 07/26/17 12:30 08/25/17 12:29 Pantoprazole Sodium (Protonix Tab) 40 mg BID PO 07/26/17 21:00 07/30/17 09:01 07/27/17 08:25 40 MG Warfarin Sodium (Coumadin Tab) 5 mg DAILY@1600 PO 07/27/17 16:00 08/26/17 15:59 Bumetanide (Bumex Tab) 2 mg BID17 PO 07/27/17 17:00 08/26/17 16:59 Objective Vital Signs Date Time Temp Pulse Resp B/P (MAP) Pulse Ox O2 Delivery O2 Flow Rate FiO2 07/27/17 14:41 65 16 90 Room Air 07/27/17 11:14 36.8 70 20 132/71 (91) 93 Room Air 07/27/17 07:45 Nasal Cannula 2.0 95 07/27/17 07:23 36.6 73 18 127/73 (91) 95 2.0 07/27/17 07:19 71 16 96 Nasal Cannula 2.0 07/27/17 04:15 36.8 73 16 97/56 (70) 94 Nasal Cannula 2.0 07/27/17 02:12 76 16 93 Nasal Cannula 2.0 07/27/17 00:00 Nasal Cannula 2.0 07/26/17 23:21 36.9 78 18 104/50 (68) 91 Room Air 07/26/17 21:12 74 133/70 (91) 07/26/17 19:27 36.5 70 22 146/72 (96) 92 Room Air 07/26/17 18:51 76 16 93 Room Air 07/26/17 16:57 61 132/64 (86) 07/26/17 16:09 83 94 07/26/17 16:00 92 Room Air CPAP 07/26/17 15:16 36.7 66 18 145/69 (94) 92 Physical Exam General Appearance: no apparent distress, + obese Eyes: normal inspection, EOMI, sclerae normal ENT: normal ENT inspection, hearing grossly normal, pharynx normal Neck: supple, no adenopathy, no JVD, trachea midline Respiratory/Chest: chest non-tender, lungs clear, normal breath sounds, no respiratory distress, no accessory muscle use Cardiovascular: regular rate, rhythm, no edema, no gallop, no JVD, no murmur Abdomen: normal bowel sounds, non tender, soft, no organomegaly Extremities: normal range of motion, non-tender, no calf tenderness, normal capillary refill, pelvis stable, + pedal edema, + pertinent finding (venous stasis changes bilaterally) 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, no motor/sensory deficits, alert, normal mood/affect, oriented x 3 Skin: + rash (less erythema today in left leg, actually appears to be just venous stasis, not warm to touch) Laboratory Results Last 24 Hours Test 07/26/17 16:31 07/26/17 20:15 07/27/17 07:21 07/27/17 07:43 Bedside Glucose 95 mg/dl 176 mg/dl 160 mg/dl White Blood Count 8.10 K/uL Red Blood Count 3.97 M/uL Hemoglobin 10.7 g/dL Hematocrit 34.3 % Mean Corpuscular Volume 86.4 fL Mean Corpuscular Hemoglobin 27.0 pg Mean Corpuscular Hemoglobin Concent 31.2 g/dl Platelet Count 267 K/uL Mean Platelet Volume 10.8 fL Neutrophils (%) (Auto) 70.2 % Lymphocytes (%) (Auto) 17.9 % Monocytes (%) (Auto) 8.1 % Eosinophils (%) (Auto) 3.6 % Basophils (%) (Auto) 0.1 % Neutrophils # (Auto) 5.68 K/uL Lymphocytes # (Auto) 1.45 K/uL Monocytes # (Auto) 0.66 K/uL Eosinophils # (Auto) 0.29 K/uL Basophils # (Auto) 0.01 K/uL RDW Standard Deviation 50.8 fL RDW Coefficient of Variation 15.9 % Immature Granulocyte % (Auto) 0.1 % Immature Granulocyte # (Auto) 0.01 K/uL Prothrombin Time 19.4 SECONDS Prothromb Time International Ratio 1.9 Sodium Level 138 mmol/L Potassium Level 3.9 mmol/L Chloride Level 100 mmol/L Carbon Dioxide Level 32 mmol/L Anion Gap 7.0 mmol/L Blood Urea Nitrogen 28 mg/dl Creatinine 1.89 mg/dl Est Creatinine Clear Calc Drug Dose 42.2 ml/min Estimated GFR () 30.6 Estimated GFR (Non- 26.4 BUN/Creatinine Ratio 14.9 Random Glucose 156 mg/dl Calcium Level 9.0 mg/dl Test 07/27/17 11:18 Bedside Glucose 176 mg/dl Assessment and Plan Lower GI bleed likely due to hemorrhoids, chronic anemia-- resolved, due to hemorrhoids, no bleeding in two days - transferred off tele - resume coumadin today - continue Protonix for now - Hb actually trending up to 10.7 Chronic peripheral edema with superimposed cellulitis in lower extremities L>R-- - no erythema today, just chronic venous stasis, not warm to touch - Unasyn day #3, convert to PO tomorrow and complete 10 day course total Mild acute exacerbation of diastolic CHF--improving - CXR w/pulmonary edema - Bumex 3 mg IV BID, metolazone 2.5 mg PO qd - diuresed 3900cc thus far, CR going up to 1.8 due to diuresis - convert Bumex back to 2mg PO BID HTN, HLD--stable -Continue labetalol 800 mg PO BID, losartan 50 mg PO qd, Zocor 20 mg PO hs COPD--stable, no wheezing on exam -Continue Symbicort BID DM II--stable - Continue on NPH 84 U Qpm and 90 U QAM - Insulin sliding scale - Check BSGs q ac and qhs - HgbA1c 7.3 on 07/26 CKD stage III-- slight rise in Cr due to diuresis, Cr 1.8, repeat tomorrow Hypothyroidism - Continue levothyroxine 275 mcg PO qd Chronic LLE DVT, h/o b/l PE - INR 1.9, resume Coumadin since bleeding stopped Anxiety/depression -Continue Zoloft 50 mg PO qd, prn Xanax DVT prophylaxis -Hold chemical ppx due to bleed -BETTY tapia and SCDs
[2017-07-27] MEDS: WARFARIN SOD 5 MG TAB PO SCH (17:07)
[2017-07-27] MEDS: BUMETANIDE 1 MG TAB PO SCH (17:08)
[2017-07-27] MEDS: PRAMIPEXOLE DIHYDROCHLORIDE 0.5 MG TAB PO SCH (21:04)
[2017-07-27] MEDS: SIMVASTATIN 20 MG TAB PO SCH (21:05)
[2017-07-27] MEDS: HYDROCORTISONE 2.5% CR 30 GM TUBE EXT SCH (21:07)
[2017-07-28] VITALS (8 sets, daily range): BP systolic 111–124; BP diastolic 64–72; PULSE 61–76; TEMP 36.5–36.8; O2SAT 90–94
[2017-07-28] MEDS: AMPICILLIN/SULBACTAM SOD INJ 1,500 MG in SODIUM CHLORIDE 0.9% 100ML 100 ML IV SCH ×2 (00:34→06:04)
[2017-07-28] MEDS: LEVALBUTEROL 1.25MG/3ML NEB INH SCH ×4 (01:59→19:20)
[2017-07-28] MEDS: ALBUTEROL HFA 8 GM INHALER INH SCH ×4 (03:45→21:45)
[2017-07-28] MEDS: LEVOTHYROXINE 200 MCG TAB PO SCH (06:04)
[2017-07-28] MEDS: LEVOTHYROXINE 75 MCG TAB PO SCH (06:04)
[2017-07-28 06:35] LABS: BASO % 0.2 %; BASO ABS # 0.02 K/uL (0-0.2); EOS % 4.9 %; HEMATOCRIT 33.1 % (37-47); HEMOGLOBIN 10.6 g/dL (12.0-16.0); IG# 0.02 K/uL (0.00-0.02); LYMPH % 21.6 %; LYMPH ABS # 1.75 K/uL (1.2-3.4); MEAN CELL VOLUME 85.1 fL (80-100); MEAN CORPUSCULAR HEMOGLOBIN 27.2 pg (25-34); MEAN PLATELET VOLUME 10.3 fL (7.4-10.4); MONO % 9.1 %; MONO ABS # 0.74 K/uL (0.11-0.59); NEUT ABS # 5.19 K/uL (1.4-6.5); PLATELET COUNT 266 K/uL (130-400); RED CELL DISTRIBUTION WIDTH CV 16.1 % (11.5-14.5); RED CELL DISTRIBUTION WIDTH SD 49.7 fL (36.4-46.3); WHITE BLOOD COUNT 8.12 K/uL (4.8-10.8)
[2017-07-28 06:45] LABS: INR 1.6 (0.9-1.1)
[2017-07-28 07:05] LABS: CALCIUM 8.8 mg/dl (8.5-10.1); CREATININE 2.04 mg/dl (0.60-1.20); POTASSIUM 3.4 mmol/L (3.5-5.1)
[2017-07-28] MEDS: GUAIFENESIN 600 MG TABCR PO SCH ×2 (08:30→22:19)
[2017-07-28] MEDS: LABETALOL HCL 200 MG TAB PO SCH ×2 (08:30→22:19)
[2017-07-28] MEDS: PANTOprazole SOD 40 MG TAB PO SCH (08:30)
[2017-07-28] MEDS: SERTRALINE HCL 50 MG TAB PO SCH (08:30)
[2017-07-28] MEDS: ASPIRIN 81 MG ECTAB PO SCH (08:31)
[2017-07-28] MEDS: METOLAZONE 2.5 MG TAB PO SCH (08:31)
[2017-07-28] MEDS: CHOLECALCIFEROL 1000 INTER.UNIT TAB PO SCH (08:31)
[2017-07-28] MEDS: LOSARTAN POTASSIUM 50 MG TAB PO SCH (08:31)
[2017-07-28] MEDS: BUDESONIDE/FORMOTEROL FUMARATE 160/4.5 60 PUFFS/INHALER INH SCH ×2 (08:32→22:18)
[2017-07-28] MEDS: BUMETANIDE 1 MG TAB PO SCH ×2 (08:32→17:31)
[2017-07-28] MEDS: CYANOCOBALAMIN 500 MCG TAB (VIT B-12) PO SCH (08:32)
[2017-07-28] MEDS: POTASSIUM CHLORIDE 20 MEQ TABCR PO SCH ×2 (08:32→22:20)
[2017-07-28] MEDS: EUCERIN CR 120 GM JAR EXT PRN ×2 (08:37→22:17)
[2017-07-28] MEDS: MICONAZOLE NITRATE POWDER 43 GM EXT PRN (08:38)
[2017-07-28] MEDS: HYDROCORTISONE 2.5% CR 30 GM TUBE EXT SCH ×2 (08:38→21:00)
[2017-07-28] MEDS: INSULIN ASPART 100 UNITS/ML 3 ML PEN SC SCH ×4 (08:43→22:30)
[2017-07-28] MEDS: INSULIN HUMAN NPH SC SCH ×2 (08:44→17:36)
--- NOTE | 2017-07-28 11:24 | Progress Note ---
Subjective Date of Service: Jul 28, 2017. Subjective Pt evaluation today including: conversation w/ patient, physical exam, lab review, review of inpatient medication list Pain: no pain PO Intake: adequate Voiding: paredes catheter in place patient feeling well, definitely less swelling today negative 4900cc for the admission Cr up to 2.0, monitoring closely on Bumex left lower leg erythema improving, less warm eating well Problem List Medical Problems: (1) Acute respiratory failure Status: Acute (2) Bilateral lower leg cellulitis Status: Acute (3) CHF (congestive heart failure) Status: Acute (4) Current use of correction anticoagulation Status: Acute (5) Dyspnea Status: Acute (6) Fluid overload Status: Acute (7) Hypercarbia Status: Acute (8) Left leg cellulitis Status: Acute (9) Lower GI bleed Status: Acute (10) Lump in throat Status: Acute (11) Morbid obesity Status: Acute (12) Pneumonia Status: Acute (13) Respiratory acidosis Status: Acute (14) Shortness of breath Status: Acute Review of Systems Constitutional: + weakness, + fatigue Cardiac: + edema Neurologic: + weakness Skin: + rash (left lower leg erythema) All Other Systems: Reviewed and Negative Medications Current Inpatient Medications Medications (Trade) Dose Ordered Sig/Marcelina Route Start Time Stop Time Status Last Admin Dose Admin Acetaminophen (Tylenol Tab) 650 mg Q4H PRN PO 07/25/17 15:45 08/24/17 15:44 Ondansetron HCl (Zofran Inj) 4 mg Q6H PRN IV 07/25/17 15:45 08/24/17 15:44 Polyethylene (Miralax Powder Packet) 17 gm DAILY PRN PO 07/25/17 15:45 08/24/17 15:44 Albuterol (Ventolin Hfa Inhaler) 2 puffs Q6H INH 07/25/17 15:45 08/24/17 15:44 07/27/17 08:24 2 PUFFS Alprazolam (Xanax Tab) 0.25 mg DAILY PRN PO 07/25/17 15:45 08/24/17 15:44 Aspirin (Ecotrin Tab) 81 mg DAILY PO 07/26/17 09:00 08/25/17 08:59 07/28/17 08:31 81 MG Budesonide/ Formoterol Fumarate (Symbicort 160/ 4.5 Inh) 2 puffs BID INH 07/25/17 21:00 08/24/17 20:59 07/28/17 08:32 2 PUFFS Cholecalciferol (Vitamin D Tab) 3,000 inter.unit DAILY PO 07/26/17 09:00 08/25/17 08:59 07/28/17 08:31 3,000 INTER.UNIT Cyanocobalamin (Vitamin B-12 Tab) 1,000 mcg DAILY PO 07/26/17 09:00 08/25/17 08:59 07/28/17 08:32 1,000 MCG Diclofenac Sodium (Voltaren 1% Top Gel) 1 appln BID PRN EXT 07/25/17 15:45 08/24/17 15:44 Insulin Human NPH (novoLIN-N NPH) 90 units DAILY@0700 SC 07/26/17 07:00 08/25/17 06:59 07/28/17 08:44 90 UNITS Labetalol HCl (Normodyne Tab) 800 mg BID PO 07/25/17 21:00 08/24/17 20:59 07/28/17 08:30 800 MG Levothyroxine Sodium (Synthroid Tab) 75 mcg DAILYBB PO 07/26/17 06:30 08/25/17 06:29 07/28/17 06:04 75 MCG Levothyroxine Sodium (Synthroid Tab) 200 mcg DAILYBB PO 07/26/17 06:30 08/25/17 06:29 07/28/17 06:04 200 MCG Losartan Potassium (coZAAR TAB) 50 mg DAILY PO 07/26/17 09:00 08/25/17 08:59 07/28/17 08:31 50 MG Metolazone (Zaroxolyn Tab) 2.5 mg Q2D@0900 PO 07/26/17 09:00 08/25/17 08:59 07/28/17 08:31 2.5 MG Potassium Chloride (Klor-Con Tab) 60 meq BID PO 07/25/17 21:00 08/24/17 20:59 07/28/17 08:32 60 MEQ Pramipexole Dihydrochloride (miraPEX TAB) 0.5 mg HS PO 07/25/17 21:00 08/24/17 20:59 07/27/17 21:04 0.5 MG Sertraline HCl (Zoloft Tab) 50 mg DAILY PO 07/26/17 09:00 08/25/17 08:59 07/28/17 08:30 50 MG Simvastatin (Zocor Tab) 20 mg QPM PO 07/25/17 21:00 08/24/17 20:59 07/27/17 21:05 20 MG Guaifenesin (Mucinex Contr Rel Tab) 1,200 mg BID PO 07/25/17 21:00 08/24/17 20:59 07/28/17 08:30 1,200 MG Levalbuterol (Xopenex 1.25MG/ 3ML Neb) 1.25 mg Q6R INH 07/25/17 21:00 08/24/17 20:59 07/28/17 07:11 1.25 MG Glucose (Glucose 40% Gel) 15-30 GRAMS 15 GRAMS... UD PRN PO 07/25/17 16:15 08/24/17 16:14 Glucose (Glucose Chew Tab) 4-8 Tablets 4 Tabl... UD PRN PO 07/25/17 16:15 08/24/17 16:14 Dextrose (Dextrose 50% 50ML Syringe) 25-50ML OF 50% DW IV FOR... UD PRN IV 07/25/17 16:15 08/24/17 16:14 Glucagon (Glucagon Inj) 1 mg UD PRN SQ 07/25/17 16:15 08/24/17 16:14 Insulin Aspart (novoLOG ASPART) SLIDING SCALE If C... ACHS SC 07/25/17 21:00 08/24/17 20:59 07/28/17 08:43 7 UNITS Insulin Human NPH (novoLIN-N NPH) 42 units DAILY@1700 SC 07/26/17 17:00 08/24/17 18:56 07/27/17 17:14 42 UNITS Miconazole Nitrate (Desenex Powder) 1 appln PRN PRN EXT 07/26/17 09:00 08/25/17 08:59 07/28/17 08:38 1 APPLN Multi-Ingredient Ointment (Eucerin Unscented Cr) 1 appln UD PRN EXT 07/26/17 12:30 08/25/17 12:29 07/28/17 08:37 1 APPLN Pantoprazole Sodium (Protonix Tab) 40 mg BID PO 07/26/17 21:00 07/30/17 09:01 07/28/17 08:30 40 MG Warfarin Sodium (Coumadin Tab) 5 mg DAILY@1600 PO 07/27/17 16:00 08/26/17 15:59 07/27/17 17:07 5 MG Bumetanide (Bumex Tab) 2 mg BID17 PO 07/27/17 17:00 08/26/17 16:59 07/28/17 08:32 2 MG Hydrocortisone (Hydrocortisone 2.5% Crm) 1 appln Q12 EXT 07/27/17 21:00 08/26/17 20:59 07/28/17 08:38 1 APPLN Cephalexin Monohydrate (Keflex Cap) 500 mg BID PO 07/28/17 12:00 08/07/17 11:59 Objective Vital Signs Date Time Temp Pulse Resp B/P (MAP) Pulse Ox O2 Delivery O2 Flow Rate FiO2 07/28/17 08:00 Nasal Cannula 2.0 07/28/17 07:42 36.7 70 18 111/66 (81) 90 07/28/17 07:12 76 18 90 Room Air 07/28/17 04:16 36.6 72 18 117/66 (83) 91 Room Air 07/28/17 04:00 Nasal Cannula 2.0 07/28/17 01:59 65 16 94 Room Air 07/28/17 00:00 Nasal Cannula 2.0 07/27/17 23:59 37.0 75 16 125/68 (87) 90 Room Air 07/27/17 20:05 73 16 93 Room Air 07/27/17 20:00 Nasal Cannula 2.0 07/27/17 19:18 36.8 74 18 104/58 (73) 91 Room Air 07/27/17 16:00 Nasal Cannula 2.0 07/27/17 15:31 36.6 67 20 122/53 (76) 93 Room Air 07/27/17 14:41 65 16 90 Room Air 07/27/17 11:14 36.8 70 20 132/71 (91) 93 Room Air Physical Exam General Appearance: no apparent distress, + obese Eyes: normal inspection, EOMI, sclerae normal ENT: normal ENT inspection, hearing grossly normal, pharynx normal Neck: supple, no adenopathy, no JVD, trachea midline Respiratory/Chest: chest non-tender, lungs clear, normal breath sounds, no respiratory distress, no accessory muscle use Cardiovascular: regular rate, rhythm, no gallop, no JVD, no murmur Abdomen: normal bowel sounds, non tender, soft, no organomegaly Extremities: normal range of motion, non-tender, normal inspection, no calf tenderness, pelvis stable, + pedal edema (improved, looks like back to baseline) 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, no motor/sensory deficits, alert, normal mood/affect, oriented x 3 Skin: warm/dry, + rash (left leg erythema on top of chronic venous stasis change, warm to touch, slightly tender) Laboratory Results Last 24 Hours Test 07/27/17 11:18 07/27/17 16:19 07/27/17 20:16 07/28/17 06:30 Bedside Glucose 176 mg/dl 137 mg/dl 145 mg/dl White Blood Count 8.12 K/uL Red Blood Count 3.89 M/uL Hemoglobin 10.6 g/dL Hematocrit 33.1 % Mean Corpuscular Volume 85.1 fL Mean Corpuscular Hemoglobin 27.2 pg Mean Corpuscular Hemoglobin Concent 32.0 g/dl Platelet Count 266 K/uL Mean Platelet Volume 10.3 fL Neutrophils (%) (Auto) 64.0 % Lymphocytes (%) (Auto) 21.6 % Monocytes (%) (Auto) 9.1 % Eosinophils (%) (Auto) 4.9 % Basophils (%) (Auto) 0.2 % Neutrophils # (Auto) 5.19 K/uL Lymphocytes # (Auto) 1.75 K/uL Monocytes # (Auto) 0.74 K/uL Eosinophils # (Auto) 0.40 K/uL Basophils # (Auto) 0.02 K/uL RDW Standard Deviation 49.7 fL RDW Coefficient of Variation 16.1 % Immature Granulocyte % (Auto) 0.2 % Immature Granulocyte # (Auto) 0.02 K/uL Prothrombin Time 16.8 SECONDS Prothromb Time International Ratio 1.6 Sodium Level 139 mmol/L Potassium Level 3.4 mmol/L Chloride Level 101 mmol/L Carbon Dioxide Level 29 mmol/L Anion Gap 9.0 mmol/L Blood Urea Nitrogen 32 mg/dl Creatinine 2.04 mg/dl Est Creatinine Clear Calc Drug Dose 39.1 ml/min Estimated GFR () 27.9 Estimated GFR (Non- 24.1 BUN/Creatinine Ratio 15.8 Random Glucose 146 mg/dl Calcium Level 8.8 mg/dl Test 07/28/17 07:26 Bedside Glucose 146 mg/dl Assessment and Plan Lower GI bleed likely due to hemorrhoids, chronic anemia-- resolved, due to hemorrhoids, no bleeding in two days - Hb stable at 10.6, no further bleeding from below - stop Protonix, no signs of upper GI bleed - treat hemorrhoids with Hydrocortisone - INR subtherapeutic, Coumadin resumed Chronic peripheral edema with superimposed cellulitis in lower extremities L>R-- - erythema markedly improved, slightly tender, slightly warm, afebrile, WBC normal - Unasyn day #4, - convert to Keflex 500mg BID today, follow response Mild acute exacerbation of diastolic CHF--improving - CXR w/pulmonary edema on admission, lungs clear now, no signs of pulmonary edema - Bumex 3 mg IV BID initially, metolazone 2.5 mg PO qd - converted to Bumex 2mg PO BID (home dose) on 07/27 since Cr up to 1.8 - Cr up to 2.0 today, but with excellent diuresis, negative 4900cc for admission - continue current Bumex dose, if Cr goes higher tomorrow then could hold Bumex and follow Cr HTN, HLD--stable -Continue labetalol 800 mg PO BID, losartan 50 mg PO qd, Zocor 20 mg PO hs COPD--stable, no wheezing on exam -Continue Symbicort BID DM II--stable - Continue on NPH 84 U Qpm and 90 U QAM - Insulin sliding scale - Check BSGs q ac and qhs - HgbA1c 7.3 on 07/26 CKD stage III-- looking at past values, Cr ranges from 1.5 to 1.9 in past year and a half Cr is 2.0 this AM after aggressive diuresis will continue Bumex 2mg PO BID and follow Cr, follow urine output Hypothyroidism - Continue levothyroxine 275 mcg PO qd Chronic LLE DVT, h/o b/l PE - INR 1.7, restarted Coumadin 5mg daily on 07/27 - follow INR, should take a few days to come back up Anxiety/depression -Continue Zoloft 50 mg PO qd, prn Xanax DVT prophylaxis -Hold chemical ppx due to bleed -BETTY tapia and SCDs
[2017-07-28] MEDS: CEPHALEXIN MONOHYDRATE 500 MG CAP PO SCH ×2 (12:03→22:18)
[2017-07-28] MEDS: WARFARIN SOD 5 MG TAB PO SCH (15:26)
[2017-07-28] MEDS: SIMVASTATIN 20 MG TAB PO SCH (22:19)
[2017-07-28] MEDS: PRAMIPEXOLE DIHYDROCHLORIDE 0.5 MG TAB PO SCH (22:20)
[2017-07-29] VITALS (7 sets, daily range): BP systolic 99–145; BP diastolic 53–63; PULSE 62–78; TEMP 36.4–36.8; O2SAT 90–94
[2017-07-29] MEDS: LEVALBUTEROL 1.25MG/3ML NEB INH SCH ×4 (02:24→21:00)
[2017-07-29] MEDS: ALBUTEROL HFA 8 GM INHALER INH SCH ×4 (03:45→21:51)
[2017-07-29] MEDS: LEVOTHYROXINE 200 MCG TAB PO SCH (05:58)
[2017-07-29] MEDS: LEVOTHYROXINE 75 MCG TAB PO SCH (05:58)
[2017-07-29 06:48] LABS: INR 1.7 (0.9-1.1)
[2017-07-29] MEDS: HYDROCORTISONE 2.5% CR 30 GM TUBE EXT SCH ×2 (07:55→20:35)
[2017-07-29] MEDS: BUDESONIDE/FORMOTEROL FUMARATE 160/4.5 60 PUFFS/INHALER INH SCH ×2 (07:55→20:35)
[2017-07-29] MEDS: LABETALOL HCL 200 MG TAB PO SCH ×2 (07:56→20:37)
[2017-07-29] MEDS: CEPHALEXIN MONOHYDRATE 500 MG CAP PO SCH ×2 (07:57→20:38)
[2017-07-29] MEDS: POTASSIUM CHLORIDE 20 MEQ TABCR PO SCH ×2 (07:57→20:38)
[2017-07-29] MEDS: SERTRALINE HCL 50 MG TAB PO SCH (07:57)
[2017-07-29] MEDS: LOSARTAN POTASSIUM 50 MG TAB PO SCH (07:57)
[2017-07-29] MEDS: ASPIRIN 81 MG ECTAB PO SCH (07:57)
[2017-07-29] MEDS: GUAIFENESIN 600 MG TABCR PO SCH ×2 (07:58→20:37)
[2017-07-29] MEDS: CYANOCOBALAMIN 500 MCG TAB (VIT B-12) PO SCH (07:58)
[2017-07-29] MEDS: CHOLECALCIFEROL 1000 INTER.UNIT TAB PO SCH (07:58)
[2017-07-29] MEDS: BUMETANIDE 1 MG TAB PO SCH (07:58)
[2017-07-29] MEDS: INSULIN HUMAN NPH SC SCH ×2 (08:04→17:27)
[2017-07-29] MEDS: INSULIN ASPART 100 UNITS/ML 3 ML PEN SC SCH ×4 (08:05→20:45)
--- NOTE | 2017-07-29 09:58 | Hospitalist Progress Note ---
Hospitalist Progress Note Date of Service Jul 29, 2017. (Sis Curry PA-C) Subjective Pt evaluation today including: conversation w/ patient, physical exam Pain: none PO Intake: Good Voiding: no voiding problems The patient was seen and examined this morning. Pt reports doing well- pt reports having a bowel movement where she strained and saw a spot of blood on toilet paper. She denies any BRBPR in bowel. She denies any lightheadedness or dizziness. She notes redness and swelling have significantly improved. Sheis hoping for discharge home today since her antibiotics have been changed to capsules. Pt lives at home with her . ROS: Constitutional: No fever, sweats or chills Eyes: No diplopia, no worsening or blurred vision ENT: normal hearing, no trouble swallowing Respiratory: No cough, sputum, dyspnea at rest or on exertion Cardiovascular: No chest pain, tightness or palpitations Abdomen: No pain, nausea, vomiting, diarrhea or constipation Musculoskeletal: No joint pain, calf pain, swelling Neurologic: No weakness, numbness/tingling, or balance problems Psychiatric: No anxiety or depression Skin: No rash or itch (Sis Curry PA-C) Objective Vital Signs Date Time Temp Pulse Resp B/P (MAP) Pulse Ox O2 Delivery O2 Flow Rate FiO2 07/29/17 07:07 36.7 68 16 118/63 (81) 90 Room Air 07/28/17 23:30 Nasal Cannula 2.0 07/28/17 23:19 36.8 71 18 116/64 (81) 91 Room Air 07/28/17 20:21 36.5 71 18 124/72 (89) 93 Room Air 07/28/17 20:00 Nasal Cannula 2.0 07/28/17 16:00 Nasal Cannula 2.0 07/28/17 15:44 36.8 61 20 121/65 (83) 92 07/28/17 13:58 70 18 93 Room Air 07/28/17 12:00 Nasal Cannula 2.0 (Sis Curry PA-C) Physical Exam Notes: General: awake, alert, no apparent distress, morbidly obese Head: Normocephalic, atraumatic ENT: PERRL, EOMI, no pharyngeal exudate, mucous membranes moist Chest: Clear to auscultation, on room air, no adventitious breath sounds Cardiac: Regular rate and rhythm, no murmur, no JVD, normal peripheral pulses, good capillary refill Abdominal: NABS x 4 quadrants, soft, nontender to palpation, no rebound, guarding or tenderness Extremities: 1+ pitting edema, dull erythema, no warmth, feet not involved, calfs nontender to palpation Psych: Normal mood and affect Neuro: AAO x 3, strength intact bilaterally and related 5/5, no motor deficits, speech is clear, no peripheral sensory deficits (Sis Curry, GATITO) Laboratory Results Last 24 Hours Test 07/28/17 11:29 07/28/17 16:50 07/28/17 21:09 07/29/17 06:06 Bedside Glucose 196 mg/dl 78 mg/dl 179 mg/dl Prothrombin Time 17.6 SECONDS Prothromb Time International Ratio 1.7 Test 07/29/17 07:27 Bedside Glucose 117 mg/dl (Sis Curry, MELITON-C) Assessment and Plan Lower GI bleed likely due to hemorrhoids, chronic anemia-- resolved, due to hemorrhoids, no bleeding in two days - Hgb stable at 10.6, no further bleeding from below - stop Protonix, no signs of upper GI bleed - treat hemorrhoids with Hydrocortisone - INR subtherapeutic, 1.7, Coumadin resumed Chronic peripheral edema with superimposed cellulitis in lower extremities L>R-- - erythema markedly improved, slightly tender, slightly warm, afebrile, WBC normal - Unasyn x 4 days now switched to Keflex 500mg BID today, follow response Mild acute exacerbation of diastolic CHF--improving - CXR w/pulmonary edema on admission, lungs clear now, no signs of pulmonary edema - Bumex 3 mg IV BID initially, metolazone 2.5 mg PO qd- converted to Bumex 2mg PO BID (home dose) on 07/27 since Cr up - continues to trend upward, now 2.1. - excellent diuresis, negative ~7000mL for admission - HOLD tonights Bumex dose - Trend PRP with am labs HTN, HLD--stable - Continue labetalol 800 mg PO BID, losartan 50 mg PO qd, Zocor 20 mg PO hs COPD--stable, no wheezing on exam - Continue Symbicort BID DM II--stable - Continue on NPH 84 U Qpm and 90 U QAM - Insulin sliding scale - Check BSGs q ac and qhs - HgbA1c 7.3 on 07/26 CKD stage III-- looking at past values, Cr ranges from 1.5 to 1.9 in past year and a half - Cr. 2.1 this AM after aggressive diuresis HOLD tonights Bumex and follow Cr, follow urine output Hypothyroidism - Continue levothyroxine 275 mcg PO qd Chronic LLE DVT, h/o b/l PE - INR 1.7, restarted Coumadin 5mg daily on 07/27 - follow INR, should take a few days to come back up Anxiety/depression -Continue Zoloft 50 mg PO qd, prn Xanax DVT prophylaxis: -Hold chemical ppx due to bleed -BETTY tapia and SCDs Disposition: Remain in hospital with elevated Cr. x 1 day, possible dc home tomorrow. (Sis Curry, PA-C) Supervising Note Dr. Monterroso I performed a history and physical examination on the patient. I reviewed above note and agree with it. I discussed plan with APC and patient. During my face to face encounter with the patient, I answered all of the patient's questions. (Oscar Monterroso M.D.)
[2017-07-29 11:25] LABS: CREATININE 2.17 mg/dl (0.60-1.20)
[2017-07-29] MEDS: WARFARIN SOD 5 MG TAB PO SCH (17:24)
[2017-07-29] MEDS: PRAMIPEXOLE DIHYDROCHLORIDE 0.5 MG TAB PO SCH (20:36)
[2017-07-29] MEDS: SIMVASTATIN 20 MG TAB PO SCH (20:36)
[2017-07-30] MEDS: LEVALBUTEROL 1.25MG/3ML NEB INH SCH ×3 (02:13→14:20)
[2017-07-30] MEDS: ALBUTEROL HFA 8 GM INHALER INH SCH ×2 (03:45→10:29)
[2017-07-30] MEDS: LEVOTHYROXINE 200 MCG TAB PO SCH (05:30)
[2017-07-30] MEDS: LEVOTHYROXINE 75 MCG TAB PO SCH (05:30)
[2017-07-30 06:32] LABS: INR 1.9 (0.9-1.1)
[2017-07-30 07:06] VITALS: BP 100/55; PULSE 73; TEMP 36.9; O2SAT 92
[2017-07-30] MEDS: LOSARTAN POTASSIUM 50 MG TAB PO SCH (07:57)
[2017-07-30] MEDS: SERTRALINE HCL 50 MG TAB PO SCH (07:57)
[2017-07-30] MEDS: GUAIFENESIN 600 MG TABCR PO SCH (07:58)
[2017-07-30] MEDS: METOLAZONE 2.5 MG TAB PO SCH (07:58)
[2017-07-30] MEDS: LABETALOL HCL 200 MG TAB PO SCH (07:58)
[2017-07-30] MEDS: CEPHALEXIN MONOHYDRATE 500 MG CAP PO SCH (07:58)
[2017-07-30] MEDS: CHOLECALCIFEROL 1000 INTER.UNIT TAB PO SCH (07:58)
[2017-07-30] MEDS: CYANOCOBALAMIN 500 MCG TAB (VIT B-12) PO SCH (07:59)
[2017-07-30] MEDS: POTASSIUM CHLORIDE 20 MEQ TABCR PO SCH (07:59)
[2017-07-30] MEDS: ASPIRIN 81 MG ECTAB PO SCH (07:59)
[2017-07-30] MEDS: HYDROCORTISONE 2.5% CR 30 GM TUBE EXT SCH (08:00)
[2017-07-30] MEDS: BUDESONIDE/FORMOTEROL FUMARATE 160/4.5 60 PUFFS/INHALER INH SCH (08:00)
[2017-07-30] MEDS: INSULIN HUMAN NPH SC SCH (08:06)
[2017-07-30] MEDS: INSULIN ASPART 100 UNITS/ML 3 ML PEN SC SCH ×2 (08:06→12:32)
[2017-07-30 08:34] LABS: CALCIUM 8.8 mg/dl (8.5-10.1); CREATININE 2.27 mg/dl (0.60-1.20); POTASSIUM 3.3 mmol/L (3.5-5.1)
[2017-07-30] MEDS ORDERED: POTASSIUM CHLORIDE 20 MEQ TABCR PO SCH (10:15)
[2017-07-30] MEDS ORDERED: KFL500 PO (10:40)
--- NOTE | 2017-07-30 11:04 | Discharge Instructions ---
Discharge Instructions Date of Service Jul 30, 2017. Admission Reason for Admission: Lower Gi Bleed Discharge Discharge Diagnosis / Problem: Hemmorhoid GI Bleed, Cellulitis of bilateral lower extremities Discharge Goals Goal(s): Decrease discomfort, Improve function, Increase independence, Improve disease control Activity Recommendations Activity Limitations: resume your previous activity Lifting Limitations: no more than 25 pounds, gradually increase as tolerated Exercise/Sports Limitations: rest today, gradually increase as tolerated May Resume Sexual Activity: when tolerated Shower/Bathe: no limitations Driving or Machine Use: no limitations . Instructions / Follow-Up Instructions / Follow-Up You were admitted to [facility] with lower GI bleed and diagnosed with hemorrhoidal GI bleed, and cellulitis in bilateral lower extremities. For Cellulitis: During your stay here you were treated with intravenous antibiotic initially and was switched to an oral antibiotics. You were treated with diuretics due to increased swelling in your legs which was worsening cellulitis. Acute kidney Injury: You developed an acute kidney injury while here due to diuresis with Bumex. Continue taking Bumex 2 mg by mouth daily instead of twice daily until Saturday. Do not take metalazone every other day ( ie. skip your dose on ). For GI bleed/ hemorrhoids: Your coumadin was initially held but was resumed during admission, take your regular home dose. Specific CHF Instructions: Call your Primary Care doctor if any of the following symptoms or problems start or get worse: * Shortness of breath or difficulty breathing * Wake up at night short of breath * Chest pain * Cough * Swelling of your hands, feet, or legs * More fatigued or tired with your normal activity * Palpitations - sudden fast heart beats WEIGHT * Weigh yourself every morning after using the bathroom. * Use the same scale. * Wear the same amount of clothing. * Write your weight down on a chart. * Call your Primary Care doctor if you gain more than 2-3 pounds in 1-2 days. MEDICATIONS * Use this discharge instruction sheet for medication instructions. * Take your medications at the time your doctor ordered. * Do not skip a dose of your medicines. * If you miss a dose of medicine, take it as soon as possible, but DO NOT DOUBLE A DOSE. * Read your medicine information when you get home. * Know all of the side effects of your medicine. If in doubt, ask your pharmacist * Call your Primary Care doctor's office if you have any side effects. * Be sure all of your doctors know what medicine and herbs you take (including cold, flu, and herbal medicine). Take the following with you to your follow-up doctor appointments: * Weight Chart * Medication List * List of questions Do not drink excessive alcohol, beer or wine. Lab Work: Have lab work completed on 08/01, to check kidney function and INR. Your results will be reviewed by your PCP. Medications: Continue taking your medications as prescribed. Continue taking keflex 500 mg twice daily starting tonight. Finish this on 08/03. Continue taking coumadin as prescribed. Appointments: Follow up with PCP within 1 week: Alanna Zuleta PA-C on Wednesday 08/02 at 9:30 AM. Current Hospital Diet Patient's current hospital diet: Diabetes Type 2 Diet, AHA Diet (Heart Healthy) Discharge Diet Recommended Diet: AHA Diet (Heart Healthy), Diabetes Type 2 Diet Pending Studies Studies pending at discharge: no Laboratory Results Hemoglobin A1c Test 07/26/17 05:51 Range/Units Estimated Average Glucose 163 mg/dl Hemoglobin A1c 7.3 H 4.5-5.6 % Lipid Panel Test 05/20/17 12:08 Range/Units Triglycerides Level 199 H 0-150 mg/dl Cholesterol Level 137 0-200 mg/dl HDL Cholesterol 32 mg/dl Cholesterol/HDL Ratio 4.3 LDL Cholesterol, Calculated 65 mg/dl Medical Emergencies . Who to Call and When: Medical Emergencies: If at any time you feel your situation is an emergency, please call 911 immediately. . Non-Emergent Contact Non-Emergency issues call your: Primary Care Provider Call Non-Emergent contact if: temperature is above 100.5, your pain is not controlled, your pain is worsening, your pain is unusual for you, your pain is concerning you, you have any medication questions other concerns with your health. Call 911 or go directly to the Emergency Department if you experience any of the following: Chest pain, chest tightness, shortness of breath, abdominal pain , lightheadedness, dizziness, gastrointestinal bleeding, or have any other concerns regarding your health. . Past History Medical & Surgical History: (1) Lower GI bleed (2) Current use of senior care anticoagulation (3) Cellulitis (4) CHF exacerbation . "Provider Documentation" section prepared by Paloma Curry. . VTE Core Measure Inpt VTE Proph given/why not?: Talia Redding, SCD's
--- NOTE | 2017-07-30 11:20 | Discharge Summary ---
Discharge Summary Date of Service Jul 30, 2017. Discharge Summary Admission Date: Jul 25, 2017 at 15:43 Discharge Date: Jul 30, 2017 Discharge Disposition: Home Principal Diagnosis: Hemmorhoidal GI bleed, cellulitis of BLE Problems/Secondary Diagnoses: Medical Problems: (1) Anemia (2) Bilateral pulmonary embolism (3) Cellulitis (4) CHF exacerbation (5) CKD (chronic kidney disease) stage 3, GFR 30-59 ml/min (6) Diabetes (7) Hypertension (8) Hypothyroidism (9) SHELIA on CPAP (10) Vitamin D deficiency Immunizations: Have You Had Influenza Vaccine: N/A History of Tetanus Vaccine?: Yes History of Pneumococcal: Yes History of Hepatitis B Vaccine: Unknown Procedures: KUB 07/25/17 IMPRESSION: Nonobstructed abdominal bowel gas pattern. CXR 1 view portable 07/25/17 IMPRESSION: 1. Chronic interstitial change. 2. Slightly progressive cardiomegaly with mild increase in pulmonary vasculature. 3. Components of mild congestive heart failure are most likely present. BILATERAL LOWER EXTREMITY VENOUS DOPPLER 07/26/17 IMPRESSION: No evidence of deep venous thrombus within the bilateral lower extremities. Suboptimal evaluation of the calf vessels. Medication Reconciliation New Medications: Cephalexin Monohydrate (Cephalexin) 500 Mg Cap 500 MG PO BID for 5 Days, #9 CAP Take first dose tonight, finish on 08/03. Continued Medications: Albuterol Hfa (Ventolin Hfa) 200 Puffs/22872 Mcg Aers 2-4 PUFFS INH Q6H, INHALER Alprazolam (Xanax) 0.25 Mg Tab 0.25 MG PO PRN for Anxiety, TAB Aspirin (Aspirin Ec) 81 Mg Tab 81 MG PO DAILY Budesonide/Formoterol Fumarate (Symbicort 160/4.5 Inhaler ) Aero 2 PUFFS INH BID, INHALER Bumetanide (Bumex) 2 Mg Tab 2 MG PO BID, TAB Cholecalciferol (Vitamin D3) 1,000 Unit Tab 3 TAB PO DAILY, TAB Cyanocobalamin (Vitamin B-12) 1,000 Mcg Tab 1000 MCG PO DAILY, TAB Diclofenac Sodium (Topical) (Voltaren 1% Top Gel) 1 % Gel 1 APPLN TOP BID PRN for SHOULDERS Guaifenesin (Mucinex Maximum Strength) 1,200 Mg Tab 1 TAB PO BID, TAB Home O2 Therapy (Oxygen) Gas 2 LITERS NA PRN Insulin Isophane (Human) (Novolin N Relion) 100 Unit/Ml Inj 90 UNITS SC QAM Insulin Isophane (Human) (Novolin N Relion) 100 Unit/Ml Inj 84 UNITS SC DINNER Insulin Regular (Human) (Novolin R U-100) 100 Unit/Ml Inj 1 DOSE SC UD 70 UNITS WITH BREAKFAST 15 UNITS WITH LUNCH 85 UNITS WITH DINNER 90 UNITS AT BEDTIME IF BLOOD SUGARS ARE GREATER THAN 175 Labetalol (Normodyne) 200 Mg Tab 4 TAB PO BID, TAB Levalbuterol (Levalbuterol HCl) 0.63 Mg/3 Ml Nebu 1 DOSE NEB Q6H Levothyroxine Sodium (Levothyroxine Sodium) 75 Mcg Tab 1 TAB PO DAILY, TAB TAKE WITH 200MCG TAB Levothyroxine Sodium (Levothyroxine Sodium) 200 Mcg Tab 1 TAB PO DAILY, TAB TAKE WITH 75MCG TAB Losartan Potassium (Cozaar) 50 Mg Tab 50 MG PO DAILY, TAB Metolazone (Zaroxolyn) 2.5 Mg Tab 2.5 MG PO Q2D, TAB Omeprazole (Prilosec) 20 Mg Capcr 20 MG PO DAILY, CAP Potassium Ext Rel (Klor-Con) 20 Meq Tabcr 3 TAB PO BID, TAB Pramipexole Dihydrochloride (Mirapex) 0.5 Mg Tab 1 TAB PO HS Sertraline (Zoloft) 50 Mg Tab 50 MG PO DAILY, TAB Simvastatin (Zocor) 20 Mg Tab 20 MG PO QPM, TAB Warfarin Sodium (Coumadin) 5 Mg Tab 5 MG PO DAILY, TAB Discharge Exam The patient was seen and examined this morning. Pt reports doing well today. The patient notes her legs are much less swollen, and that she has been ambulating without any difficulty. She denies any shortness of breath with walking or at rest. The patient is anticipating discharged home today. Discussion was held regarding creatinine slowly increasing. Patient was instructed to take Bumex 2 mg p.o. daily for the next 3 days and have her labs drawn on to recheck kidney function, potassium and follow INR. She should also skip metolazone on 08/01. Upon her PCPs review of these labs they can further determine whether or not she can increase her Bumex back up to her home dose of 2 mg twice daily. PCP appointment has been arranged for Saturday morning at 0930. ROS: Constitutional: No fever, sweats or chills Eyes: No diplopia, no worsening or blurred vision ENT: normal hearing, no trouble swallowing Respiratory: No cough, sputum, dyspnea at rest or on exertion Cardiovascular: No chest pain, tightness or palpitations Abdomen: No pain, nausea, vomiting, diarrhea or constipation Musculoskeletal: No joint pain, calf pain, + chronic swelling but improved Neurologic: No weakness, numbness/tingling, or balance problems Psychiatric: No anxiety or depression Skin: No rash or itch PE: General: awake, alert, no apparent distress Head: Normocephalic, atraumatic ENT: PERRL, EOMI, no pharyngeal exudate, mucous membranes moist Chest: Clear to auscultation, on room air, no adventitious breath sounds Cardiac: Regular rate and rhythm, no murmur, no JVD, normal peripheral pulses, good capillary refill Abdominal: NABS x 4 quadrants, soft, nontender to palpation, no rebound, guarding or tenderness Extremities: 1+ pitting edema, dull erythema, no warmth, feet not involved, calfs nontender to palpation Psych: Normal mood and affect Neuro: AAO x 3, strength intact bilaterally and related 5/5, no motor deficits, speech is clear, no peripheral sensory deficits Hospital Course Lower GI bleed likely due to hemorrhoids, chronic anemia-- resolved, due to hemorrhoids, no bleeding in two days - Hgb stable at 10.6, no further bleeding from below - stop Protonix, no signs of upper GI bleed - treat hemorrhoids with Hydrocortisone - INR subtherapeutic, 1.9, Coumadin resumed follow-up INR check on -08/01 Chronic peripheral edema with superimposed cellulitis in lower extremities L>R-- - erythema markedly improved, nontender, no warmth, afebrile, WBC normal - Unasyn x 4 days now switched to Keflex 500mg BID today, follow response- patient can continue for another 5 days to complete a 10 day course. Mild acute exacerbation of diastolic CHF--improving - CXR w/pulmonary edema on admission, lungs clear now, no signs of pulmonary edema - Bumex 3 mg IV BID initially, metolazone 2.5 mg PO qd- converted to Bumex 2mg PO BID (home dose) on 07/27 since Cr up - continues to trend upward, now 2.27. - excellent diuresis, negative ~10 L for admission total - HOLD Bumex dose again this morning and tonight. She has been instructed to resume morning Bumex 2 mg PO only until lab redrawn on and PCP follow-up on Saturday morning. Potassium was also slightly low at 3.3 this morning which required replacement- -given 40 mEq p.o. HTN, HLD--stable - Continue labetalol 800 mg PO BID, losartan 50 mg PO qd, Zocor 20 mg PO hs COPD--stable, no wheezing on exam - Continue Symbicort BID DM II--stable - Continue on NPH 84 U Qpm and 90 U QAM - Insulin sliding scale - Check BSGs q ac and qhs - HgbA1c 7.3 on 07/26 CKD stage III-- looking at past values, Cr ranges from 1.5 to 1.9 in past year and a half - Cr. 2.1 this AM after aggressive diuresis HOLD tonights Bumex and follow Cr, follow urine output Hypothyroidism - Continue levothyroxine 275 mcg PO qd Chronic LLE DVT, h/o b/l PE - INR 1.7, restarted Coumadin 5mg daily on 07/27 - follow INR, should take a few days to come back up Anxiety/depression -Continue Zoloft 50 mg PO qd, prn Xanax DVT prophylaxis: -Hold chemical ppx due to bleed -BETTY tapia and SCDs Disposition: Discharged home today. Supervising Note Dr. Monterroso I performed a history and physical examination on the patient. I reviewed above note and agree with it. I discussed plan with APC and patient. During my face to face encounter with the patient, I answered all of the patient's questions. Hemoglobin has stabilized, will continue anticoagulation as noted above. Total Time Spent: Greater than 30 minutes This includes examination of the patient, discharge planning, medication reconciliation, and communication with other providers. Discharge Instructions Please refer to the electronic Patient Visit Report (Discharge Instructions) for additional information. Follow-Up Follow-up with PCP on Wednesday 08/02 at 930 already scheduled. Follow-up lab work including PRP, INR on 08/01. Additional Copies To RV. Jean Baptiste MD
[2017-07-30 11:58] VITALS: BP 121/68; PULSE 72; TEMP 36.6; O2SAT 93
[2017-07-30 15:16] VITALS: BP 121/68; PULSE 72; TEMP 36.6; O2SAT 93
== END 2017-07-30 16:40 | disposition home or self-care (01) | DRG 393 ==
LOC: C.EDB 10:46 → C.MED 15:43 → CANRESERV 17:00 → ENRESERV 17:00
PROVIDERS: ADMIT Internal Medicine; ATTEND Internal Medicine Sports Medicine
DX: K64.9 Unspecified hemorrhoids (principal); I50.33 Acute on chronic diastolic (congestive) heart failure; I13.0 Hypertensive heart and chronic kidney disease with heart failure and stage 1 through stage 4 chronic kidney disease, or unspecified chronic kidney disease; Z68.43 Body mass index [BMI] 50.0-59.9, adult; L03.116 Cellulitis of left lower limb; L03.115 Cellulitis of right lower limb; I82.502 Chronic embolism and thrombosis of unspecified deep veins of left lower extremity; E11.22 Type 2 diabetes mellitus with diabetic chronic kidney disease; N18.3 Chronic kidney disease, stage 3 (moderate); D63.8 Anemia in other chronic diseases classified elsewhere; J44.9 Chronic obstructive pulmonary disease, unspecified; G47.33 Obstructive sleep apnea (adult) (pediatric); E03.9 Hypothyroidism, unspecified; E78.5 Hyperlipidemia, unspecified; F32.9 Major depressive disorder, single episode, unspecified; F41.9 Anxiety disorder, unspecified; E66.01 Morbid (severe) obesity due to excess calories; I05.0 Rheumatic mitral stenosis; R91.1 Solitary pulmonary nodule; Z86.711 Personal history of pulmonary embolism; Z99.81 Dependence on supplemental oxygen; Z79.01 Long term (current) use of anticoagulants; Z79.4 Long term (current) use of insulin; Z79.82 Long term (current) use of aspirin; Z79.899 Other long term (current) drug therapy; Z88.6 Allergy status to analgesic agent; Z88.8 Allergy status to other drugs, medicaments and biological substances; Z83.3 Family history of diabetes mellitus; Z82.49 Family history of ischemic heart disease and other diseases of the circulatory system; Z83.6 Family history of other diseases of the respiratory system; Z84.1 Family history of disorders of kidney and ureter

== ENCOUNTER → 2017-08-01 | Outpatient (CLI) | payer OTHER ==
[~2017-08-01] MED LIST changes: +ALPR0.25 PO; -AMB5 PO; -ASPI-435 PO; +ASPI81TA28 PO; -ATRINS INH; -BUME1TAB45; +BUME2TAB3 PO; +CHOL1000 PO; -CHOL100010 PO; +DICL1GEL12 TOP; -GFNSR600 PO; +GUAI1TAB69 PO; +INSU0.01 SC; +INSUINJ7 SC; +KFL500 PO; -LBT/200 PO; +LEVO200T6 PO; +LEVO75TA5 PO; +METO2.5T PO; -NVLGIPEN SC; -NVLNI SQ; -POTA10CA28 PO; +POTA20TA16 PO; +PRAM1TAB47 PO; -PRAM1TAB52 PO; +SERT50TA PO; +SIMV20TA2 PO; -SIMV40TA2 PO; -SYN200 PO; -SYN75 PO; -TYL325X PO; +VNTHFA/IN INH; -XNX25 PO; +XPNINS NEB; -XPNINS1255 INH; -ZLF50 PO; -ZRX25 PO
[2017-08-01 17:25] LABS: INR 2.6 (0.9-1.1)
[2017-08-01 17:30] LABS: HEMATOCRIT 34.4 % (37-47)
[2017-08-01 17:56] LABS: ALKALINE PHOSPHATASE 68 U/L (45-117); ALT/SGPT 27 U/L (12-78); AST/SGOT 15 U/L (15-37); BLOOD UREA NITROGEN 47 mg/dl (7-18); CALCIUM 9.6 mg/dl (8.5-10.1); CARBON DIOXIDE 28 mmol/L (21-32); CREATININE 1.82 mg/dl (0.60-1.20); GLUCOSE 58 mg/dl (70-99); POTASSIUM 3.7 mmol/L (3.5-5.1); SODIUM 141 mmol/L (136-145); TOTAL PROTEIN 7.1 gm/dl (6.4-8.2)
[2017-08-01 17:57] LABS: ALBUMIN 3.3 gm/dl (3.4-5.0)
[2017-08-02 06:54] LABS: HEMOGLOBIN A1C 7.1 % (4.5-5.6)
== END | disposition home or self-care (01) ==
LOC: C.LAB1850 16:26
PROVIDERS: ATTEND Physician Assistant
DX: E03.9 Hypothyroidism, unspecified (principal); E11.29 Type 2 diabetes mellitus with other diabetic kidney complication; Z79.4 Long term (current) use of insulin; N18.3 Chronic kidney disease, stage 3 (moderate)

== ENCOUNTER → 2017-08-19 | Outpatient (CLI) | payer OTHER ==
[~2017-08-19] MED LIST changes: -KFL500 PO; +WARF2.5T8 PO
--- NOTE | 2017-08-19 11:17 | DIAGNOSTIC IMAGING REPORT ---
CHEST 2 VIEWS ROUTINE CLINICAL HISTORY: I50.9 CHF NYHA class [id number] dyspnea COMPARISON STUDY: 07/25/2017 FINDINGS: Moderate stable cardiomegaly. Prominent pulmonary vasculature. Mild congestive heart failure is present. IMPRESSION: Mild congestive heart failure. This is slightly diminished in prominence compared to the prior study of 07/25/2017 The above report was generated using voice recognition software. It may contain grammatical, syntax or spelling errors. Electronically signed by: Bharat Kitchen M.D. 08/19/2017 11:16 AM Dictated Date/Time: 08/19/2017 11:15 AM
== END | disposition home or self-care (01) ==
LOC: C.RAD1850 10:54
PROVIDERS: ATTEND Physician Assistant
DX: I50.9 Heart failure, unspecified (principal)

== ENCOUNTER → 2017-09-20 | Outpatient (CLI) | payer OTHER ==
[~2017-09-20] MED LIST changes: +POTA-639 PO; -POTA20TA16 PO
[2017-09-20 17:18] LABS: BLOOD UREA NITROGEN 53 mg/dl (7-18); CALCIUM 9.4 mg/dl (8.5-10.1); CARBON DIOXIDE 35 mmol/L (21-32); GLUCOSE 56 mg/dl (70-99); POTASSIUM 3.5 mmol/L (3.5-5.1); SODIUM 144 mmol/L (136-145)
== END | disposition home or self-care (01) ==
LOC: C.LAB1850 15:21
PROVIDERS: ATTEND Physician Assistant
DX: E03.9 Hypothyroidism, unspecified (principal); I50.9 Heart failure, unspecified

== ENCOUNTER → 2017-09-30 | Outpatient (CLI) | payer OTHER ==
[2017-09-30 12:54] LABS: BLOOD UREA NITROGEN 47 mg/dl (7-18); CALCIUM 8.7 mg/dl (8.5-10.1); CARBON DIOXIDE 30 mmol/L (21-32); CREATININE 1.93 mg/dl (0.60-1.20); GLUCOSE 182 mg/dl (70-99); POTASSIUM 4.1 mmol/L (3.5-5.1); SODIUM 140 mmol/L (136-145)
== END | disposition home or self-care (01) ==
LOC: C.LAB1850 10:04
PROVIDERS: ATTEND Physician Assistant
DX: I50.9 Heart failure, unspecified (principal)

== ENCOUNTER → 2017-10-07 | Outpatient (CLI) | payer OTHER ==
[2017-10-07 15:56] LABS: BLOOD UREA NITROGEN 42 mg/dl (7-18); CALCIUM 8.3 mg/dl (8.5-10.1); CARBON DIOXIDE 29 mmol/L (21-32); CREATININE 1.73 mg/dl (0.60-1.20); GLUCOSE 83 mg/dl (70-99); POTASSIUM 3.5 mmol/L (3.5-5.1); SODIUM 142 mmol/L (136-145)
== END | disposition home or self-care (01) ==
LOC: C.LAB1850 14:26
PROVIDERS: ATTEND Physician Assistant
DX: I50.9 Heart failure, unspecified (principal)

== ENCOUNTER 2018-09-22 10:33 | Inpatient (IN) ==
[2018-09-22] MEDS ORDERED: ALBUT/IPRATROP 3MG/0.5MG NEB 3 ML VIAL NEB STA (10:59)
[2018-09-22] MEDS ORDERED: methylPREDNISolone 125 MG/2 ML VIAL IV STA (11:02)
--- NOTE | 2018-09-22 11:11 | Emergency Department Note ---
Entered by Fanny Alvarado acting as a scribe for Jah Yip MD History of Present Illness General Chief complaint: Flu Like Symptoms Stated complaint: SOB,ACHY Time Seen by Provider: 09/22/18 10:50 Source: patient Mode of arrival: ambulatory Limitations: no limitations History of Present Illness Onset (ago): hour(s) (this morning) Location: chest Pain Consistency: + constant Maximum Pain Intensity: 7 Quality: + other (She notes that she feels achy.) Associated symptoms: + chest pain (chest tightness), + cough (without production), + fever/chills (The patient complains of chills. ), + nausea/vomiting (The patient complains of nausea. The patient denies vomiting. ) and + shortness of breath The patient is a 73 year old female with a history of a hysterectomy, heart failure, and COPD who presents to the ED with complaints of constant flu like symptoms that onset this morning. The patient complains of chills, nausea, cough without production, shortness of breath, and chest tightness. She notes that she feels achy. The patient denies vomiting. She notes that she is on oxygen and CPAP at home. Home Medications Home Medications Medication Instructions Recorded Confirmed Type Novolin R Regular U-100 Insuln 40 units SC BID #0 07/25/17 09/22/18 History aspirin [Aspirin Low Dose] 81 mg PO HS #0 07/25/17 09/22/18 History bumetanide 2 mg PO BID #0 tab 07/25/17 09/22/18 History cholecalciferol (vitamin D3) 3,000 unit PO QAM #0 tab 07/25/17 09/22/18 History [Vitamin D3] cyanocobalamin (vitamin B-12) 1,000 mcg PO QAM #0 tab 07/25/17 09/22/18 History [Vitamin B-12] diclofenac sodium [Voltaren] 1 applic TOPICAL DIRECTED PRN #0 07/25/17 09/22/18 History labetalol 800 mg PO BID #0 tab 07/25/17 09/22/18 History levothyroxine [Synthroid] 75 mcg PO DIRECTED #0 tab 07/25/17 09/22/18 History levothyroxine [Synthroid] 200 mcg PO QAM #0 tab 07/25/17 09/22/18 History omeprazole 20 mg PO QAM #0 cap 07/25/17 09/22/18 History simvastatin 20 mg PO PM #0 tab 07/25/17 09/22/18 History insulin NPH isophane U- 100 human 40 units SC BID #0 ml 02/10/18 09/22/18 History 100 unit/mL subcutaneous suspension levalbuterol 0.63 mg/3 mL solution 0.63 mg INH Q6H PRN ml 02/18/18 09/22/18 History for nebulization mometasone-formoterol HFA 200 2 puffs INH BID 02/18/18 09/22/18 History mcg-5 mcg/actuation aerosol inhaler ropinirole 0.5 mg tablet 0.5 mg PO HS tab 02/18/18 09/22/18 History Novolin R Regular U-100 Insuln 20 unit SUBCUT QPM 02/22/18 09/22/18 History melatonin 10 mg PO HS PRN 02/22/18 09/22/18 History potassium chloride ER 20 mEq 20 meq PO DAILY 04/28/18 09/22/18 History tablet,extended release(part/cryst) sertraline 50 mg tablet 100 mg PO QAM #0 tab 04/28/18 09/22/18 History warfarin 2.5 mg tablet 2.5 mg PO UD tab 05/19/18 09/22/18 History warfarin 5 mg tablet 5 mg PO UD tab 05/19/18 09/22/18 History acetaminophen ER 650 mg 650 mg PO DAILY PRN tab 06/16/18 09/22/18 History tablet,extended release Allergies Allergy/AdvReac Type Severity Reaction Status Date / Time ibuprofen Allergy Intermediate HIVES Verified 09/22/18 12:49 lisinopril AdvReac Mild COUGH Verified 09/22/18 12:49 Past Med/Surg History Medical History Diabetes (Chronic) SHELIA on CPAP (Chronic) Anemia Vitamin D deficiency Hypothyroidism (Chronic) Arthritis (Acute) CHF (congestive heart failure) (Chronic) COPD (chronic obstructive pulmonary disease) (Chronic) Chronic GERD (Chronic) Depression (Chronic) Diabetic neuropathy (Chronic) HTN (hypertension) (Chronic) Hemorrhoids (Chronic) Hyperlipidemia (Chronic) Left bundle branch block (Chronic) Lymphedema (Chronic) Mild mitral stenosis (Chronic) Mitral regurgitation (Chronic) Morbid obesity (Chronic) Osteopenia (Chronic) Restless leg syndrome (Chronic) Stage III chronic kidney disease (Chronic) Urinary incontinence (Chronic) Venous insufficiency (Chronic) Vulvar cyst (Chronic) Vulvovaginitis (Chronic) Surgical History History of cholecystectomy History of hysterectomy Family History Mother Diabetes Social History Preferred Language: Ivorian Communication Ability: Effective Visual Impairment: No Limitations Hearing Ability: Normal Plastic Roller Required: No Beliefs That Will Affect Care: None marital status: Current Living Situation: Spouse Current Living Situation Comment: [facility] Other Information That Helps Us Care for You: No Feels Safe at Home: Yes Safety Concerns: Feels Safe At This Time Smoking Status: Never smoker Do You Dip or Chew Tobacco: No Second Hand Exposure: No Tobacco Cessation Education Requested by Patient: No Hx Alcohol Use: No Hx Substance Use: No Review of Systems See HPI for pertinent positives & negatives. and A total of 10 systems reviewed and were otherwise negative Physical Exam Vital Signs Vital Signs - 24 hr 09/22/18 10:34 09/22/18 10:56 09/22/18 10:57 Temperature 38.3 C H Temperature Source Oral Sepsis Recent Fever Within 48 Hours No Sepsis New/Unexplained Change in Mental Status No Sepsis Action Taken by Nursing No Action Required Pulse Rate 105 H 102 H Pulse Rate [Finger] 100 H Pulse Rate from SpO2 Sensor 102 H Respiratory Rate 26 H 28 H 31 H Respiratory Effort / Characteristics Short of Breath Respiratory Depth Shallow Respiratory Pattern Blood Pressure 197/85 H 180/74 H Blood Pressure [Right Arm] 180/74 H Blood Pressure Mean 122 109 Blood Pressure Mean [Right Arm] 109 Blood Pressure Position Sitting Blood Pressure Position [Right Arm] Pulse Oximetry 89 L 96 95 Oxygen Delivery Method Room Air Nasal Cannula Nasal Cannula Oxygen Flow Rate 3 3 Fraction of Inspired Oxygen 09/22/18 11:05 09/22/18 11:15 09/22/18 11:30 Temperature Temperature Source Sepsis Recent Fever Within 48 Hours Sepsis New/Unexplained Change in Mental Status Sepsis Action Taken by Nursing Pulse Rate 103 H 106 H 103 H Pulse Rate [Finger] Pulse Rate from SpO2 Sensor 103 H 106 H 104 H Respiratory Rate 29 H 34 H 26 H Respiratory Effort / Characteristics Respiratory Depth Respiratory Pattern Blood Pressure Blood Pressure [Right Arm] Blood Pressure Mean Blood Pressure Mean [Right Arm] Blood Pressure Position Blood Pressure Position [Right Arm] Pulse Oximetry 95 94 97 Oxygen Delivery Method Nasal Cannula Nasal Cannula Nasal Cannula Oxygen Flow Rate 3 3 3 Fraction of Inspired Oxygen 09/22/18 11:39 09/22/18 11:40 09/22/18 11:45 Temperature Temperature Source Sepsis Recent Fever Within 48 Hours Sepsis New/Unexplained Change in Mental Status Sepsis Action Taken by Nursing Pulse Rate 103 H 103 H 103 H Pulse Rate [Finger] Pulse Rate from SpO2 Sensor 103 H 103 H 103 H Respiratory Rate 25 H 23 33 H Respiratory Effort / Characteristics Respiratory Depth Respiratory Pattern Blood Pressure 162/72 H Blood Pressure [Right Arm] Blood Pressure Mean 102 Blood Pressure Mean [Right Arm] Blood Pressure Position Blood Pressure Position [Right Arm] Pulse Oximetry 93 93 93 Oxygen Delivery Method Nasal Cannula Oxygen Flow Rate 3 Fraction of Inspired Oxygen 09/22/18 11:46 09/22/18 11:47 09/22/18 11:48 Temperature Temperature Source Sepsis Recent Fever Within 48 Hours Sepsis New/Unexplained Change in Mental Status Sepsis Action Taken by Nursing Pulse Rate 100 H 99 H 100 H Pulse Rate [Finger] Pulse Rate from SpO2 Sensor 100 H 100 H Respiratory Rate 25 H 28 H 25 H Respiratory Effort / Characteristics Spontaneous Respiratory Depth Respiratory Pattern Blood Pressure 158/74 H Blood Pressure [Right Arm] Blood Pressure Mean 102 Blood Pressure Mean [Right Arm] Blood Pressure Position Blood Pressure Position [Right Arm] Pulse Oximetry 97 97 97 Oxygen Delivery Method BiPAP Oxygen Flow Rate Fraction of Inspired Oxygen 40 09/22/18 12:00 09/22/18 12:01 09/22/18 12:06 Temperature Temperature Source Sepsis Recent Fever Within 48 Hours Sepsis New/Unexplained Change in Mental Status Sepsis Action Taken by Nursing Pulse Rate 103 H 103 H 106 H Pulse Rate [Finger] Pulse Rate from SpO2 Sensor 103 H 102 H 106 H Respiratory Rate 22 29 H 26 H Respiratory Effort / Characteristics Respiratory Depth Respiratory Pattern Blood Pressure 166/73 H 166/73 H Blood Pressure [Right Arm] Blood Pressure Mean 104 104 Blood Pressure Mean [Right Arm] Blood Pressure Position Blood Pressure Position [Right Arm] Pulse Oximetry 98 97 97 Oxygen Delivery Method Oxygen Flow Rate Fraction of Inspired Oxygen 09/22/18 12:15 04/22/19 12:30 09/22/18 12:31 Temperature Temperature Source Sepsis Recent Fever Within 48 Hours Sepsis New/Unexplained Change in Mental Status Sepsis Action Taken by Nursing Pulse Rate 130 H 101 H 106 H Pulse Rate [Finger] Pulse Rate from SpO2 Sensor 109 H 101 H 104 H Respiratory Rate 35 H 22 35 H Respiratory Effort / Characteristics Respiratory Depth Respiratory Pattern Blood Pressure 156/73 H 160/68 H Blood Pressure [Right Arm] Blood Pressure Mean 100 98 Blood Pressure Mean [Right Arm] Blood Pressure Position Blood Pressure Position [Right Arm] Pulse Oximetry 98 93 93 Oxygen Delivery Method Nasal Cannula Nasal Cannula Oxygen Flow Rate 3 3 Fraction of Inspired Oxygen 09/22/18 12:45 09/22/18 12:46 09/22/18 12:48 Temperature Temperature Source Sepsis Recent Fever Within 48 Hours Sepsis New/Unexplained Change in Mental Status Sepsis Action Taken by Nursing Pulse Rate 98 H 99 H Pulse Rate [Finger] Pulse Rate from SpO2 Sensor 98 H 99 H Respiratory Rate 31 H 24 Respiratory Effort / Characteristics Spontaneous SOB on Exertion Respiratory Depth Normal Respiratory Pattern Regular Blood Pressure 151/75 H Blood Pressure [Right Arm] Blood Pressure Mean 100 Blood Pressure Mean [Right Arm] Blood Pressure Position Blood Pressure Position [Right Arm] Pulse Oximetry 91 91 Oxygen Delivery Method Nasal Cannula Nasal Cannula Nasal Cannula Oxygen Flow Rate 3 3 3 Fraction of Inspired Oxygen 09/22/18 13:00 09/22/18 13:30 09/22/18 14:00 Temperature Temperature Source Sepsis Recent Fever Within 48 Hours Sepsis New/Unexplained Change in Mental Status Sepsis Action Taken by Nursing Pulse Rate 98 H 90 92 H Pulse Rate [Finger] Pulse Rate from SpO2 Sensor 90 92 H Respiratory Rate 23 22 Respiratory Effort / Characteristics Respiratory Depth Respiratory Pattern Blood Pressure Blood Pressure [Right Arm] Blood Pressure Mean Blood Pressure Mean [Right Arm] Blood Pressure Position Blood Pressure Position [Right Arm] Pulse Oximetry 95 94 Oxygen Delivery Method Nasal Cannula Nasal Cannula Oxygen Flow Rate 4 4 Fraction of Inspired Oxygen 09/22/18 15:00 09/22/18 15:49 09/22/18 15:58 Temperature 36.7 C Temperature Source Oral Sepsis Recent Fever Within 48 Hours Sepsis New/Unexplained Change in Mental Status Sepsis Action Taken by Nursing Pulse Rate 90 Pulse Rate [Finger] 93 H 93 H Pulse Rate from SpO2 Sensor Respiratory Rate 19 18 22 Respiratory Effort / Characteristics Non-Labored Spontaneous Respiratory Depth Respiratory Pattern Blood Pressure 154/79 H Blood Pressure [Right Arm] 162/73 H Blood Pressure Mean Blood Pressure Mean [Right Arm] 102 Blood Pressure Position Blood Pressure Position [Right Arm] Lying Pulse Oximetry 96 95 94 Oxygen Delivery Method Nasal Cannula Nasal Cannula Nasal Cannula Oxygen Flow Rate 3 4 3.5 Fraction of Inspired Oxygen 09/22/18 19:26 09/22/18 19:27 09/22/18 23:13 Temperature 37.3 C 37.1 C Temperature Source Oral Oral Sepsis Recent Fever Within 48 Hours Sepsis New/Unexplained Change in Mental Status Sepsis Action Taken by Nursing Pulse Rate Pulse Rate [Finger] 92 H 98 H 84 Pulse Rate from SpO2 Sensor Respiratory Rate 22 18 20 Respiratory Effort / Characteristics Non-Labored Spontaneous Respiratory Depth Respiratory Pattern Blood Pressure Blood Pressure [Right Arm] 176/68 H 151/70 H Blood Pressure Mean Blood Pressure Mean [Right Arm] 104 97 Blood Pressure Position Blood Pressure Position [Right Arm] Lying Pulse Oximetry 94 96 95 Oxygen Delivery Method Nasal Cannula Nasal Cannula Oxygen Flow Rate 3 4 4 Fraction of Inspired Oxygen 09/22/18 23:19 Temperature Temperature Source Sepsis Recent Fever Within 48 Hours Sepsis New/Unexplained Change in Mental Status Sepsis Action Taken by Nursing Pulse Rate Pulse Rate [Finger] 84 Pulse Rate from SpO2 Sensor Respiratory Rate 16 Respiratory Effort / Characteristics Non-Labored Spontaneous Respiratory Depth Respiratory Pattern Blood Pressure Blood Pressure [Right Arm] Blood Pressure Mean Blood Pressure Mean [Right Arm] Blood Pressure Position Blood Pressure Position [Right Arm] Pulse Oximetry 96 Oxygen Delivery Method Nasal Cannula Oxygen Flow Rate 4 Fraction of Inspired Oxygen GENERAL: Awake, alert, in moderate respiratory distress. BMI of 40.9 kg/m^2. HENT: Normocephalic, atraumatic. Oropharynx with dry mucous membranes and otherwise unremarkable. EYES: Normal conjunctiva. Sclera non-icteric. NECK: Supple. No nuchal rigidity. FROM. No JVD. RESPIRATORY: Diminished throughout with scattered wheezes. CARDIAC: Regular rate, normal rhythm. Extremities warm and well perfused. Pulses equal. ABDOMEN: Soft, non-distended. No tenderness to palpation. No rebound or guarding. No masses. RECTAL: Deferred. MUSCULOSKELETAL: Chest examination reveals no tenderness. The back is symmetrical on inspection without obvious abnormality. There is no CVA tenderness to palpation. No joint edema. LOWER EXTREMITIES: Calves are equal size bilaterally and non-tender. 3+ BLE edema. Mild redness without warmth or crepitus. NEURO: Normal sensorium. No sensory or motor deficits noted. SKIN: No rash or jaundice noted. Course 1052: Past medical records reviewed. The patient was evaluated in room C7, and a complete history and physical examination were performed. 1236: I [facility]. She will evaluate the patient for further management. Consultations Consultation #1: 1236: I reviewed the [facility]. She will evaluate the patient for further management. Administered Medications Albuterol (Duoneb) 3 ml NEB Q4R LANRE Stop: 10/22/18 15:59 Last Admin: 09/22/18 23:19 Dose: 3 ml Documented by: [id number] Admin: 09/22/18 19:27 Dose: 3 ml Documented by: [id number] Admin: 09/22/18 15:47 Dose: 3 ml Documented by: [id number] Aspirin (Ecotrin Ectab) 81 mg PO HS LANRE Stop: 10/22/18 20:59 Last Admin: 09/22/18 21:31 Dose: 81 mg Documented by: [id number] Bumetanide (Bumex) 2 mg PO BID LANRE Stop: 10/22/18 20:59 Last Admin: 09/22/18 21:30 Dose: 2 mg Documented by: [id number] Sodium Chloride (Nss 1000ml) 1,000 mls @ 80 mls/hr IV .[id number] LANRE Stop: 09/23/18 04:04 Last Admin: 09/22/18 16:56 Dose: 80 mls/hr Documented by: [id number] Doxycycline Hyclate 100 mg/ (Dextrose) 110 mls @ 50 mls/hr IV Q12H LANRE Stop: 09/29/18 11:59 Last Admin: 09/22/18 23:55 Dose: 50 mls/hr Documented by: [id number] Insulin Aspart (Novolog Flexpen) 0 units SC ACHS LANRE Stop: 10/22/18 16:29 Last Admin: 09/22/18 21:33 Dose: 22 units Documented by: [id number] Cosigned by: [id number] Admin: 09/22/18 17:17 Dose: 36 units Documented by: [id number] Cosigned by: [id number] Labetalol HCl (Normodyne) 800 mg PO BID LANRE Stop: 10/22/18 20:59 Last Admin: 09/22/18 21:31 Dose: 800 mg Documented by: [id number] Levothyroxine Sodium (Synthroid) 200 mcg PO DAILYBB [facility] Stop: 10/22/18 15:34 Last Admin: 09/22/18 16:57 Dose: 200 mcg Documented by: [id number] Levothyroxine Sodium (Synthroid) 75 mcg PO [email or web address] [facility] Stop: 10/22/18 15:34 Last Admin: 09/22/18 16:57 Dose: 75 mcg Documented by: [id number] Pantoprazole Sodium (Protonix) 40 mg PO QAM [facility]; Protocol Stop: 10/22/18 15:34 Last Admin: 09/22/18 16:59 Dose: 40 mg Documented by: [id number] Ropinirole HCl (Requip) 0.5 mg PO HS [facility] Stop: 10/22/18 20:59 Last Admin: 09/22/18 21:30 Dose: 0.5 mg Documented by: [id number] Sertraline [facility] ([facility]ft) [facility] Stop: 10/22/18 15:34 Last Admin: 09/22/18 16:59 Dose: 100 mg Documented by: [id number] Simvastatin (Zocor) 20 mg PO PM [facility] Stop: 10/22/18 20:59 Last Admin: 09/22/18 21:31 Dose: 20 mg Documented by: [id number] Warfarin Sodium (Coumadin) 5 mg PO [email or web address] [facility] Stop: 10/22/18 15:59 Last Admin: 09/22/18 17:28 Dose: 5 mg Documented by: [id number] Discontinued Medications Albuterol (Duoneb) 3 ml NEB NOW STA Stop: 09/22/18 11:00 Last Admin: 09/22/18 11:29 Dose: 3 ml Documented by: [id number] Acetaminophen (Ofirmev) 1,000 mg in 100 mls @ 400 mls/hr IV NOW STA Stop: 09/22/18 11:26 Last Infusion: 09/22/18 11:44 Dose: 0 mls/hr Documented by: [id number] Admin: 09/22/18 11:29 Dose: 400 mls/hr Documented by: [id number] Magnesium Sulfate/Dextrose (Magnesium Sulfate / D5w) 1 gm in 100 mls @ 100 mls/hr IV Q1H STA Stop: 09/22/18 13:29 Last Infusion: 09/22/18 14:58 Dose: 0 mls/hr Documented by: [id number] Admin: 09/22/18 13:43 Dose: 100 mls/hr Documented by: [id number] Ceftriaxone Sodium (Rocephin) 1,000 mg in 50 mls @ 100 mls/hr IV NOW STA Stop: 09/22/18 12:59 Last Infusion: 09/22/18 13:25 Dose: 0 mls/hr Documented by: [id number] Admin: 09/22/18 13:00 Dose: 100 mls/hr Documented by: [id number] Bumetanide 2 mg/ Syringe 8 mls @ 4 mls/min IV ONE ONE Stop: 09/22/18 12:28 Last Admin: 09/22/18 13:10 Dose: 4 mls/min Documented by: [id number] Doxycycline Hyclate 100 mg/ (Dextrose) 110 mls @ 50 mls/hr IV NOW STA Stop: 09/22/18 14:38 Last Infusion: 09/22/18 16:40 Dose: 0 mls/hr Documented by: [id number] Admin: 09/22/18 14:26 Dose: 50 mls/hr Documented by: [id number] Potassium Phosphate 15 mmol/ (Sodium Chloride) 255 mls @ 88 mls/hr IV 1630 ONE Stop: 09/22/18 19:23 Last Infusion: 09/22/18 19:50 Dose: 0 mls/hr Documented by: [id number] Admin: 09/22/18 16:56 Dose: 88 mls/hr Documented by: [id number] Insulin Glargine (Lantus Solostar Pen) 65 units SC 1630 ONE Stop: 09/22/18 16:31 Last Admin: 09/22/18 17:27 Dose: 65 units Documented by: [id number] Cosigned by: [id number] Methylprednisolone (Solumedrol) 125 mg IV NOW STA Stop: 09/22/18 11:03 Last Admin: 09/22/18 11:29 Dose: 125 mg Documented by: [id number] Medical Decision Making Differential Diagnosis Differential diagnosis: Etiologies such as infections, reactive airway disease, COPD, pneumonia, pleural effusion, pulmonary edema, ARDS, pneumothorax, CHF, cardiac ischemia, cardiac tamponade, dysrhythmia, anemia, pulmonary embolism, musculoskeletal, gastrointestinal process, as well as others were entertained. Medical Records Attestation: I reviewed the patient's medical records. Home Medications Current Medication List: was personally reviewed by me Laboratory Data Attestation: I reviewed the patient's lab results. Result diagrams: 09/22/18 11:28 09/22/18 11:28 Lab Results 09/22/18 09/22/18 09/22/18 Range/Units 11:28 11:28 11:28 WBC 16.07 H (4.8-10.8) K/uL RBC 4.44 (4.2-5.4) M/uL Hgb 11.5 L (12.0-16.0) g/dL Hct 36.1 L (37-47) % MCV 81.3 (80-100) fL MCH 25.9 (25-34) pg MCHC 31.9 L (32-36) g/dL RDW Std Deviation 48.6 H (36.4-46.3) fL RDW Coeff of Joycelyn 16.3 H (11.5-14.5) % Plt Count 257 (130-400) K/uL MPV 10.4 (7.4-10.4) fL Immature Gran % (Auto) 0.2 % Neut % (Auto) 91.3 % Lymph % (Auto) 3.4 % [place] % (Auto) 4.4 % Eos % (Auto) 0.6 % Baso % (Auto) 0.1 % Immature Gran # (Auto) 0.04 H (0.00-0.02) K/uL Neut # (Auto) 14.67 H (1.4-6.5) K/uL Lymph # (Auto) 0.54 L (1.2-3.4) K/uL [place] # (Auto) 0.71 H (0.11-0.59) K/uL Eos # (Auto) 0.10 (0-0.5) K/uL Baso # (Auto) 0.01 (0-0.2) K/uL PT 18.4 H (9.0-12.0) Seconds INR 1.9 H (0.9-1.1) APTT 40.6 H (21.0-31.0) Seconds PTT Ratio 1.5 VBG pH (7.36-7.41) VBG pCO2 (38-50) mmHg VBG pO2 mmHg VBG HCO3 mmol/L VBG O2 Saturation % VBG Base Excess mEq/L Barometric Pressure mm/Hg Sodium (136-145) mmol/L Potassium (3.5-5.1) mmol/L Chloride (98-107) mmol/L Carbon Dioxide (21-32) mmol/L Anion Gap (3-11) BUN (7-18) mg/dl Creatinine (0.6-1.2) mg/dl Est Cr Clr Drug Dosing ml/min Est GFR ( Amer) Est GFR (Non-Af Amer) BUN/Creatinine Ratio (10-20) Glucose (70-99) mg/dl POC Glucose (70-99) Lactate 2.0 (0.4-2.0) mmol/L Calcium (8.5-10.1) mg/dl Phosphorus (2.5-4.9) mg/dl Magnesium (1.8-2.4) mg/dl Total Bilirubin (0.2-1) mg/dl Direct Bilirubin (0-0.2) mg/dl AST (15-37) U/L ALT (12-78) U/L Alkaline Phosphatase (45-117) U/L Troponin I (0-0.045) ng/ml NT-Pro-B Natriuret Pep (0-900) pg/ml Total Protein (6.4-8.2) gm/dl Albumin (3.4-5.0) gm/dl Globulin (2.5-4.0) gm/dl Albumin/Globulin Ratio (0.9-2) Procalcitonin (0-0.5) ng/ml Urine Color Urine Appearance (Clear) Urine pH (4.5-7.5) Ur Specific [place] (1.000-1.030) Urine Protein (Negative) Urine Glucose (UA) (Negative) Urine Ketones (Negative) Urine Blood (Negative) Urine Nitrite (Negative) Urine Bilirubin (Negative) Urine Urobilinogen (Negative) Ur Leukocyte Esterase (Negative) Urine WBC (Auto) (0-5) /hpf Urine RBC (Auto) (0-4) /hpf U Hyaline Cast (Auto) (0-5) /lpf U Epithel Cells (Auto) (0-5) /lpf Urine Bacteria (Auto) (Negative) Influenza Type A (PCR) (Neg) Influenza Type B (PCR) (Neg) 09/22/18 09/22/18 09/22/18 Range/Units 11:28 11:28 11:28 WBC (4.8-10.8) K/uL RBC (4.2-5.4) M/uL Hgb (12.0-16.0) g/dL Hct (37-47) % MCV (80-100) fL MCH (25-34) pg MCHC (32-36) g/dL RDW Std Deviation (36.4-46.3) fL RDW Coeff of Joycelyn (11.5-14.5) % Plt Count (130-400) K/uL MPV (7.4-10.4) fL Immature Gran % (Auto) % Neut % (Auto) % Lymph % (Auto) % [place] % (Auto) % Eos % (Auto) % Baso % (Auto) % Immature Gran # (Auto) (0.00-0.02) K/uL Neut # (Auto) (1.4-6.5) K/uL Lymph # (Auto) (1.2-3.4) K/uL [place] # (Auto) (0.11-0.59) K/uL Eos # (Auto) (0-0.5) K/uL Baso # (Auto) (0-0.2) K/uL PT (9.0-12.0) Seconds INR (0.9-1.1) APTT (21.0-31.0) Seconds PTT Ratio VBG pH 7.43 H (7.36-7.41) VBG pCO2 44 (38-50) mmHg VBG pO2 33 mmHg VBG HCO3 29 mmol/L VBG O2 Saturation 64.2 % VBG Base Excess 3.9 mEq/L Barometric Pressure 736.6 mm/Hg Sodium 138 (136-145) mmol/L Potassium 3.8 (3.5-5.1) mmol/L Chloride 103 (98-107) mmol/L Carbon Dioxide 30 (21-32) mmol/L Anion Gap 5.0 (3-11) BUN 29 H (7-18) mg/dl Creatinine 1.76 H (0.6-1.2) mg/dl Est Cr Clr Drug Dosing 37.2 ml/min Est GFR ( Amer) 32.9 Est GFR (Non-Af Amer) 28.4 BUN/Creatinine Ratio 16.7 (10-20) Glucose 287 H (70-99) mg/dl POC Glucose (70-99) Lactate (0.4-2.0) mmol/L Calcium 8.9 (8.5-10.1) mg/dl Phosphorus 2.0 L (2.5-4.9) mg/dl Magnesium 1.4 L (1.8-2.4) mg/dl Total Bilirubin 0.8 (0.2-1) mg/dl Direct Bilirubin 0.2 (0-0.2) mg/dl AST 18 (15-37) U/L ALT 21 (12-78) U/L Alkaline Phosphatase 99 (45-117) U/L Troponin I < 0.015 (0-0.045) ng/ml NT-Pro-B Natriuret Pep 713 (0-900) pg/ml Total Protein 7.3 (6.4-8.2) gm/dl Albumin 3.4 (3.4-5.0) gm/dl Globulin 3.9 (2.5-4.0) gm/dl Albumin/Globulin Ratio 0.9 (0.9-2) Procalcitonin 0.41 (0-0.5) ng/ml Urine Color Urine Appearance (Clear) Urine pH (4.5-7.5) Ur Specific [place] (1.000-1.030) Urine Protein (Negative) Urine Glucose (UA) (Negative) Urine Ketones (Negative) Urine Blood (Negative) Urine Nitrite (Negative) Urine Bilirubin (Negative) Urine Urobilinogen (Negative) Ur Leukocyte Esterase (Negative) Urine WBC (Auto) (0-5) /hpf Urine RBC (Auto) (0-4) /hpf U Hyaline Cast (Auto) (0-5) /lpf U Epithel Cells (Auto) (0-5) /lpf Urine Bacteria (Auto) (Negative) Influenza Type A (PCR) (Neg) Influenza Type B (PCR) (Neg) 09/22/18 09/22/18 09/22/18 Range/Units 13:00 13:15 16:53 WBC (4.8-10.8) K/uL RBC (4.2-5.4) M/uL Hgb (12.0-16.0) g/dL Hct (37-47) % MCV (80-100) fL MCH (25-34) pg MCHC (32-36) g/dL RDW Std Deviation (36.4-46.3) fL RDW Coeff of Joycelyn (11.5-14.5) % Plt Count (130-400) K/uL MPV (7.4-10.4) fL Immature Gran % (Auto) % Neut % (Auto) % Lymph % (Auto) % [place] % (Auto) % Eos % (Auto) % Baso % (Auto) % Immature Gran # (Auto) (0.00-0.02) K/uL Neut # (Auto) (1.4-6.5) K/uL Lymph # (Auto) (1.2-3.4) K/uL [place] # (Auto) (0.11-0.59) K/uL Eos # (Auto) (0-0.5) K/uL Baso # (Auto) (0-0.2) K/uL PT (9.0-12.0) Seconds INR (0.9-1.1) APTT (21.0-31.0) Seconds PTT Ratio VBG pH (7.36-7.41) VBG pCO2 (38-50) mmHg VBG pO2 mmHg VBG HCO3 mmol/L VBG O2 Saturation % VBG Base Excess mEq/L Barometric Pressure mm/Hg Sodium (136-145) mmol/L Potassium (3.5-5.1) mmol/L Chloride (98-107) mmol/L Carbon Dioxide (21-32) mmol/L Anion Gap (3-11) BUN (7-18) mg/dl Creatinine (0.6-1.2) mg/dl Est Cr Clr Drug Dosing ml/min Est GFR ( Amer) Est GFR (Non-Af Amer) BUN/Creatinine Ratio (10-20) Glucose (70-99) mg/dl POC Glucose 373 H* (70-99) Lactate (0.4-2.0) mmol/L Calcium (8.5-10.1) mg/dl Phosphorus (2.5-4.9) mg/dl Magnesium (1.8-2.4) mg/dl Total Bilirubin (0.2-1) mg/dl Direct Bilirubin (0-0.2) mg/dl AST (15-37) U/L ALT (12-78) U/L Alkaline Phosphatase (45-117) U/L Troponin I (0-0.045) ng/ml NT-Pro-B Natriuret Pep (0-900) pg/ml Total Protein (6.4-8.2) gm/dl Albumin (3.4-5.0) gm/dl Globulin (2.5-4.0) gm/dl Albumin/Globulin Ratio (0.9-2) Procalcitonin (0-0.5) ng/ml Urine Color Yellow Urine Appearance Cloudy H (Clear) Urine pH 5.5 (4.5-7.5) Ur Specific [place] 1.020 (1.000-1.030) Urine Protein 1+ H (Negative) Urine Glucose (UA) 1+ H (Negative) Urine Ketones Negative (Negative) Urine Blood 2+ H (Negative) Urine Nitrite Positive H (Negative) Urine Bilirubin Negative (Negative) Urine Urobilinogen Negative (Negative) Ur Leukocyte Esterase 2+ H (Negative) Urine WBC (Auto) >30 H (0-5) /hpf Urine RBC (Auto) 0-4 (0-4) /hpf U Hyaline Cast (Auto) 0 (0-5) /lpf U Epithel Cells (Auto) >30 H (0-5) /lpf Urine Bacteria (Auto) 4+ H (Negative) Influenza Type A (PCR) Neg for Influ A (Neg) Influenza Type B (PCR) Neg for Influ B (Neg) 09/22/18 09/22/18 09/22/18 Range/Units 17:01 20:39 20:40 WBC (4.8-10.8) K/uL RBC (4.2-5.4) M/uL Hgb (12.0-16.0) g/dL Hct (37-47) % MCV (80-100) fL MCH (25-34) pg MCHC (32-36) g/dL RDW Std Deviation (36.4-46.3) fL RDW Coeff of Joycelyn (11.5-14.5) % Plt Count (130-400) K/uL MPV (7.4-10.4) fL Immature Gran % (Auto) % Neut % (Auto) % Lymph % (Auto) % [place] % (Auto) % Eos % (Auto) % Baso % (Auto) % Immature Gran # (Auto) (0.00-0.02) K/uL Neut # (Auto) (1.4-6.5) K/uL Lymph # (Auto) (1.2-3.4) K/uL [place] # (Auto) (0.11-0.59) K/uL Eos # (Auto) (0-0.5) K/uL Baso # (Auto) (0-0.2) K/uL PT (9.0-12.0) Seconds INR (0.9-1.1) APTT (21.0-31.0) Seconds PTT Ratio VBG pH (7.36-7.41) VBG pCO2 (38-50) mmHg VBG pO2 mmHg VBG HCO3 mmol/L VBG O2 Saturation % VBG Base Excess mEq/L Barometric Pressure mm/Hg Sodium (136-145) mmol/L Potassium (3.5-5.1) mmol/L Chloride (98-107) mmol/L Carbon Dioxide (21-32) mmol/L Anion Gap (3-11) BUN (7-18) mg/dl Creatinine (0.6-1.2) mg/dl Est Cr Clr Drug Dosing ml/min Est GFR ( Amer) Est GFR (Non-Af Amer) BUN/Creatinine Ratio (10-20) Glucose (70-99) mg/dl POC Glucose 386 H* 355 H* (70-99) Lactate (0.4-2.0) mmol/L Calcium (8.5-10.1) mg/dl Phosphorus (2.5-4.9) mg/dl Magnesium (1.8-2.4) mg/dl Total Bilirubin (0.2-1) mg/dl Direct Bilirubin (0-0.2) mg/dl AST (15-37) U/L ALT (12-78) U/L Alkaline Phosphatase (45-117) U/L Troponin I 0.053 H* (0-0.045) ng/ml NT-Pro-B Natriuret Pep (0-900) pg/ml Total Protein (6.4-8.2) gm/dl Albumin (3.4-5.0) gm/dl Globulin (2.5-4.0) gm/dl Albumin/Globulin Ratio (0.9-2) Procalcitonin (0-0.5) ng/ml Urine Color Urine Appearance (Clear) Urine pH (4.5-7.5) Ur Specific [place] (1.000-1.030) Urine Protein (Negative) Urine Glucose (UA) (Negative) Urine Ketones (Negative) Urine Blood (Negative) Urine Nitrite (Negative) Urine Bilirubin (Negative) Urine Urobilinogen (Negative) Ur Leukocyte Esterase (Negative) Urine WBC (Auto) (0-5) /hpf Urine RBC (Auto) (0-4) /hpf U Hyaline Cast (Auto) (0-5) /lpf U Epithel Cells (Auto) (0-5) /lpf Urine Bacteria (Auto) (Negative) Influenza Type A (PCR) (Neg) Influenza Type B (PCR) (Neg) Imaging Data Radiologist's Impression: Radiology results as stated below per my review and the radiologist's interpretation: XR chest 1V portable HISTORY: 73 years-old Female Sepsis acute sepsis with shortness of breath COMPARISON: Chest radiograph 05/26/2018 TECHNIQUE: Portable AP view of the chest FINDINGS: Cardiac silhouette is enlarged, unchanged. Pulmonary vascular congestion with mild interstitial coarsening. Mild bibasilar densities are noted suggestive of atelectasis. Possible trace pleural effusions without pneumothorax. Degenerative changes of the shoulders and spine. IMPRESSION: Cardiomegaly with pulmonary vascular congestion and interstitial coarsening suggestive of pulmonary edema. The above report was generated using voice recognition software. It may contain grammatical, syntax or spelling errors. Electronically signed by: Aguilar Chávez M.D. 09/22/2018 11:37 AM Dictated: 09/22/18 1135 Transcribed: 09/22/18 1135 ECG Data Attestation: I personally reviewed and interpreted this ECG as follows: Indication: SOB/dyspnea Rate (beats per minute): 103 Rhythm: sinus tachycardia Findings: + other (left axis deviation) and + LBBB; no acute ischemic change (no overt acute ischemia ) Comparison ECG Date: from (05/26/2018) Blood Pressure Blood Pressure Findings: Elevated blood pressure Blood Pressure Disposition: further management by hospitalist [place] Narrative The patient is a pleasant 73-year-old woman with a past medical history of COPD, CHF, SHELIA on nocturnal CPAP and oxygen, diabetes, PEs on anticoagulation who presents emergency department with fevers, chills, shortness of breath which began abruptly this morning per hpi. On arrival patient is in moderate respiratory distress with labored breathing in the 30s, febrile to 38.3 with heart rate in the 100s and hypertensive 180s/70s. Patient has diminished breath sounds throughout with scattered wheezes. EKG demonstrates patient's baseline left bundle branch block without evidence of overt acute ischemia i.e. Sgarbossa criteria. CXR with vascular congestion and interstitial coarsening c/w pulmonary edema. Bibasilar densities also demonstrated. WBC 16. H/H 11.5/36.1 within baseline ranged. VBG unremarkable. Cr. 1.76 within patient's baseline ranged. Glucose 287. Chemistry without acidosis. Lactate 2.0. Procalcitonin 0.41. Initial troponin negative. BNP wnl. Flu negative. UA pending. Patient given steroids and duoneb on arrival as well as Bipap for tachypnea in the 30s and WOB. Patient on Bipap for approximately 45 minutes but becoming anxious and not tolerating mask. However, lungs sound and WOB improved and so able to transition to nasal cannula. Given reassuring procalcitonin, sepsis less likely. Blood cultures pending. Treatment initiated for CAP with ceftriaxone and doxycycline. Case d/w Dr. Morris, [facility] hospitalist, who will evaluate the patient for admission. Impression & Plan Respiratory failure, PNA (pneumonia) Critical Care Time I have personally spent 45 minutes of critical care time in the direct management of this patient. This includes bedside care, interpretation of diagnostic studies, and testing, discussion with consultants, patient, and [facility] members, and other required patient management activities. This 45 minutes is in excess of all separately billable procedures. Critical Care Time: Yes (45) Total Critical Care Time: 45 Discharge Plan Visit Data *Final* Discharge Date/Time: 09/22/18 15:00 Chief Complaint: Flu Like Symptoms Stated Complaint: SOB,ACHY ED Provider: Jah Yip Discharge Problem: Respiratory failure, PNA (pneumonia) Patient Disposition: Admitted As Inpatient Discharge Instructions Interventions: ED Discharge Assessment Last Done: 09/22/18 15:00 Discharge Problem: Respiratory failure Qualifiers: Chronicity: acute on chronic Respiratory failure complication: hypoxia Qualified Code(s): J96.21 - Acute and chronic respiratory failure with hypoxia PNA (pneumonia) Qualifiers: Pneumonia type: due to unspecified organism Laterality: bilateral Lung location: lower lobe of lung Qualified Code(s): J18.1 - Lobar pneumonia, unspecified organism The scribe's documentation has been prepared under my direction and personally reviewed by me in its entirety. I confirm that the note above accurately reflects all work, treatment, procedures, and medical decision making performed by me.
[2018-09-22] MEDS ORDERED: ACETAMINOPHEN 1,000 MG/100 ML VIAL IV STA (11:12)
--- NOTE | 2018-09-22 11:38 | XRay Report ---
XR chest 1V portable HISTORY: 73 years-old Female Sepsis acute sepsis with shortness of breath COMPARISON: Chest radiograph 05/26/2018 TECHNIQUE: Portable AP view of the chest FINDINGS: Cardiac silhouette is enlarged, unchanged. Pulmonary vascular congestion with mild interstitial coars ening. Mild bibasilar densities are noted suggestive of atelectasis. Possible trace pleural effusions without pneumothorax. Degenerative changes of the shoulders and spine. IMPRESSION: Cardiomegaly with pulmonary vascular congestion and interstitial coarsening suggestive of pulmonary e anjali. The above report was generated using voice recognition software. It may contain grammatical, syntax o r spelling errors. Electronically signed by: Aguilar Chávez M.D. 09/22/2018 11:37 AM
[2018-09-22 11:46] LABS: Basophils # (auto) 0.01 K/uL (0-0.2); Basophils % (auto) 0.1 %; Eosinophils % (auto) 0.6 %; Hematocrit (blood only) 36.1 % (37-47); Hemoglobin 11.5 g/dL (12.0-16.0); Immature Granulocytes # (auto) 0.04 K/uL (0.00-0.02); Immature Granulocytes % (auto) 0.2 %; Lymphocytes # (auto) 0.54 K/uL (1.2-3.4); Lymphocytes % (auto) 3.4 %; Mean Corpuscular Hgb Conc 31.9 g/dL (32-36); Mean Corpuscular Volume 81.3 fL (80-100); Mean Platelet Volume 10.4 fL (7.4-10.4); Monocytes # (auto) 0.71 K/uL (0.11-0.59); Monocytes % (auto) 4.4 %; Neutrophils # (auto) 14.67 K/uL (1.4-6.5); Neutrophils % (auto) 91.3 %; Platelet Count 257 K/uL (130-400); RDW Coefficient of Variation 16.3 % (11.5-14.5); RDW Standard Deviation 48.6 fL (36.4-46.3); Red Blood Count 4.44 M/uL (4.2-5.4); White Blood Count 16.07 K/uL (4.8-10.8)
[2018-09-22 11:49] LABS: Base Excess VBG 3.9 mEq/L; Oxygen Saturation VBG 64.2 %; pH VBG 7.43 (7.36-7.41)
[2018-09-22 12:08] LABS: Alanine Aminotransferase 21 U/L (12-78); Albumin Level 3.4 gm/dl (3.4-5.0); Aspartate Aminotransferase 18 U/L (15-37); BUN Creatinine Ratio 16.7 (10-20); Bilirubin Direct 0.2 mg/dl (0-0.2); Blood Urea Nitrogen 29 mg/dl (7-18); Calcium 8.9 mg/dl (8.5-10.1); Carbon Dioxide 30 mmol/L (21-32); Chloride 103 mmol/L (98-107); Creatinine Clr Calc Pharmacy 37.2 ml/min; Est GFR (African American) 32.9; Est GFR (Non-African American) 28.4; Glucose 287 mg/dl (70-99); Magnesium 1.4 mg/dl (1.8-2.4); Potassium 3.8 mmol/L (3.5-5.1); Sodium 138 mmol/L (136-145)
[2018-09-22 12:10] LABS: INR 1.9 (0.9-1.1); Partial Thromboplastin Ratio 1.5; Partial Thromboplastin Time 40.6 Seconds (21.0-31.0); Prothrombin Time 18.4 Seconds (9.0-12.0)
[2018-09-22 12:14] LABS: Albumin Globulin Ratio 0.9 (0.9-2); Alkaline Phosphatase 99 U/L (45-117); Bilirubin,Total 0.8 mg/dl (0.2-1); Globulin 3.9 gm/dl (2.5-4.0); NT Pro B Type Natriuretic Pept 713 pg/ml (0-900); Total Protein 7.3 gm/dl (6.4-8.2); Troponin I < 0.015 ng/ml (0-0.045)
[2018-09-22] MEDS ORDERED: BUMETANIDE 2 MG in SYRINGE 0 ML IV ONE (12:27)
[2018-09-22] MEDS ORDERED: DOXYCYCLINE HYCLATE 100 MG in DEXTROSE 5% 100 ML IV STA (12:27)
[2018-09-22] MEDS ORDERED: MAGNESIUM SULFATE / D5W 1 GM/100 ML BAG IV STA (12:30)
[2018-09-22] MEDS ORDERED: cefTRIAXone SODIUM 1,000 MG/50 ML BAG IV STA (12:30)
[2018-09-22 13:27] LABS: Appearance Urine Cloudy (Clear); Bacteria Urine Automated 4+ (Negative); Bilirubin Urine Negative (Negative); Blood Urine 2+ (Negative); Cast Urine Automated 0 /lpf (0-5); Color Urine Yellow; Epithelial Cell Urine Auto >30 /lpf (0-5); Glucose Urine UA 1+ (Negative); Ketones Urine Negative (Negative); Leukocyte Esterase Urine 2+ (Negative); Nitrite Urine Positive (Negative); Protein Urine 1+ (Negative); RBC Urine Automated 0-4 /hpf (0-4); Urobilinogen Urine Negative (Negative); WBC Urine Automated >30 /hpf (0-5); pH Urine 5.5 (4.5-7.5)
--- NOTE | 2018-09-22 13:55 | History & Physical Report ---
Date of Service September 22, 2018 Assessment & Plan (1) Respiratory failure: Patient with respiratory distress on arrival, hypoxic requiring initial use of BiPAP. Received IV Bumex and Solumedrol in ER. Now improved with NC in place. Patient hypertensive on arrival 197/85 which has since improved. May have been contributing to SOB and hypoxia as well. Patient with acute onset febrile illness starting this AM, recent sick contacts, influenza pending. Has history of diastolic CHF, does not appear to be clinically volume overloaded at this time. Has history of PE on Coumadin anticoagulation, INR of 1.9. Mostly suspect infection as underlying cause of SOB, possible mild COPD exacerbation. -Admit to PCU, continuous pulse oximetry. -Supplemental O2 as needed, target saturation of 92% in patient with COPD -DuoNeb q 4 hours -Albuterol q 2 hours PRN -Prednisone 40mg po daily -Daily weights -CPAP qHS at home setting -Follow cultures Present on Admission?: Yes (2) PNA (pneumonia): Patient febrile, tachycardic, tachypneic with elevated WBC count at 16.07. Hypertensive on arrival. Lactic acid and procalcitonin within normal limits. No obvious infiltrate noted on CXR. -Admit to PCU as above, continuous pulse oximetry, nebs -Follow culture results -Follow influenza results - Tamiflu if positive given symptom onset today at 06:30 -Ceftriaxone 1gm IV daily for possible CAP -Doxycycline 100mg IV BID for possible CAP -PA and lateral CXR in AM -Robitussin PRN -Tylenol PRN pain or fever Present on Admission?: Yes (3) COPD (chronic obstructive pulmonary disease): Patient with history of COPD. Possible exacerbation contributing to respiratory distress. Diminished breath sounds bilaterally, no wheezing appreciated -DuoNebs q 4 hours -Albuterol q 2 hours PRN -Solumedrol 125mg IV administered in ER, will continue with PO Prednisone 40mg po daily -Supplemental O2 as needed Present on Admission?: Yes (4) Diabetes: Patient with DM on Novolin and regular insulin at home. Last HgAIC=8 on 06/16/18. Reports that her blood sugars have been quite high this week, 287 now. -Continue home insulin regimen -Glycemic management consult to assist - appreciate input -CC diet as tolerated Present on Admission?: Yes (5) Morbid obesity: Noted -Encourage lifestyle modifications, diet and exercise Present on Admission?: Yes (6) Anemia of chronic disease: Normochromic/normocytic anemia, Hg=11.5, Hct=10.7 which is slightly higher than prior values. ?dehydration/volume contraction in setting of acute illness -Continue to monitor Present on Admission?: Yes (7) Chronic anticoagulation: Patient with history of PE on Coumadin anticoagulation. INR slightly subtherapeutic today at 1.9 -Continue home Coumadin dosing -Check INR daily, may need to adjust dosing if INR remains < 2 Present on Admission?: Yes (8) SHELIA on CPAP: Noted -CPAP qHS per RT Present on Admission?: Yes (9) Vitamin D deficiency: Chronic -Continue Vitamin D supplementation Present on Admission?: Yes (10) Hypothyroidism: Chronic. TSH=1.27 on 06/16/18. No recent medication changes -Continue home Synthroid Present on Admission?: Yes (11) GERD (gastroesophageal reflux disease): Chronic. Well controlled -Continue Omeprazole daily Present on Admission?: Yes (12) Depression: Chronic. Well controlled -Continue Sertraline daily -Continue Xanax PRN (13) CHF (congestive heart failure): Patient with diastolic CHF, last echo in 07/2016 with EF of 55-60%. Does not appear to be acutely decompensated at this time. BNP within normal range. Patient states her dry weight varies 315-319#. Presently 314.6#. She denies edema, orthopnea or weight gain. She was given IV Bumex in ER with response -Continue PO Bumex at home dosing -Continue Labetalol -Daily weights -Continue to monitor Present on Admission?: Yes (14) Restless leg syndrome: Chronic -Continue Ropinirole F/E/N- NSS at 80mL/hr x 1 liter, monitor electrolytes and replete as needed, patient given 1 gm of Magnesium in ER, will give K-Phos 15 mmol x 1 dose, continue PO K repletion, repeat labs in AM, CC/low Na diet as tolerated, conitnue Miralax and Vitamin D and B12 at home doses PPx - patient on Coumadin anticoagulation, continue Code - Full per discussion with patient Dispo - Admit to PCU Present on Admission?: Yes History of Present Illness Chief Complaint: SOB, fever Primary Care Provider: Jorge Guillermo MD Mrs. Cisneros is a pleasant 73yo C female with multiple medical comorbidities to include COPD, SHELIA on nocturnal CPAP, diastolic CHF, morbid obesity, HTN, HLP, DM, CKD, PE on Coumadin anticoagulation presenting with acute SOB. Patient states that this AM at 06:30 she woke with fevers/chills, headache, nausea, muscle aches as well as shortness of breath and substernal chest heaviness. She checked her pulse ox at that time and was 89% on room air with HR of 78. Patient denies weight gain, edema, orthopnea. She denies rhinorrhea/sore throat/congestion. She has a dry cough. Denies abdominal pain/vomiting/diarrhea or constipation. +sick contacts - great grandchild with recent RSV infection. No recent travel. No new medications. She reports compliance with home medications. Did not take AM meds yet. She had an appointment scheduled at the Coumadin clinic which she cancelled, she called her PCP and was instructed to come to the ER. On arrival to the ER patient was febrile at 38.3, tachycardic at 105 bpm, tachypneic at 30 bpm, hypertensive at 197/85 and saturating 89% on room air. She was placed on BiPAP, however, was unable to tolerate the mask. Patient with complaint now of headache as well as persistent body aches and shortness of breath. She states that the substernal chest discomfort resolved upon arrival to the ER. She has no additional complaints at this time. ER Course: Tylenol 1000mg, Albuterol 3mL neb, Bumex 2mg IV, Ceftriaxone 1gm IV, Doxycycline 100mg IV, Magnesium 1gm IV, Solumedrol 125mg IV Allergies Allergy/AdvReac Type Severity Reaction Status Date / Time ibuprofen Allergy Intermediate HIVES Verified 09/22/18 12:49 lisinopril AdvReac Mild COUGH Verified 09/22/18 12:49 Home Medications Home Medications Medication Instructions Recorded Confirmed Type Novolin R Regular U-100 Insuln 40 units SC BID #0 07/25/17 09/22/18 History aspirin [Aspirin Low Dose] 81 mg PO HS #0 07/25/17 09/22/18 History bumetanide 2 mg PO BID #0 tab 07/25/17 09/22/18 History cholecalciferol (vitamin D3) 3,000 unit PO QAM #0 tab 07/25/17 09/22/18 History [Vitamin D3] cyanocobalamin (vitamin B-12) 1,000 mcg PO QAM #0 tab 07/25/17 09/22/18 History [Vitamin B-12] diclofenac sodium [Voltaren] 1 applic TOPICAL DIRECTED PRN #0 07/25/17 09/22/18 History labetalol 800 mg PO BID #0 tab 07/25/17 09/22/18 History levothyroxine [Synthroid] 75 mcg PO DIRECTED #0 tab 07/25/17 09/22/18 History levothyroxine [Synthroid] 200 mcg PO QAM #0 tab 07/25/17 09/22/18 History omeprazole 20 mg PO QAM #0 cap 07/25/17 09/22/18 History simvastatin 20 mg PO PM #0 tab 07/25/17 09/22/18 History insulin NPH isophane U- 100 human 40 units SC BID #0 ml 02/10/18 09/22/18 History 100 unit/mL subcutaneous suspension levalbuterol 0.63 mg/3 mL solution 0.63 mg INH Q6H PRN ml 02/18/18 09/22/18 History for nebulization mometasone-formoterol HFA 200 2 puffs INH BID 02/18/18 09/22/18 History mcg-5 mcg/actuation aerosol inhaler ropinirole 0.5 mg tablet 0.5 mg PO HS tab 02/18/18 09/22/18 History Novolin R Regular U-100 Insuln 20 unit SUBCUT QPM 02/22/18 09/22/18 History melatonin 10 mg PO HS PRN 02/22/18 09/22/18 History potassium chloride ER 20 mEq 20 meq PO DAILY 04/28/18 09/22/18 History tablet,extended release(part/cryst) sertraline 50 mg tablet 100 mg PO QAM #0 tab 04/28/18 09/22/18 History warfarin 2.5 mg tablet 2.5 mg PO UD tab 05/19/18 09/22/18 History warfarin 5 mg tablet 5 mg PO UD tab 05/19/18 09/22/18 History acetaminophen ER 650 mg 650 mg PO DAILY PRN tab 06/16/18 09/22/18 History tablet,extended release Past Med/Surg History Medical History Diabetes (Chronic) SHELIA on CPAP (Chronic) Anemia Vitamin D deficiency Hypothyroidism (Chronic) Arthritis (Acute) CHF (congestive heart failure) (Chronic) COPD (chronic obstructive pulmonary disease) (Chronic) Chronic GERD (Chronic) Depression (Chronic) Diabetic neuropathy (Chronic) HTN (hypertension) (Chronic) Hemorrhoids (Chronic) Hyperlipidemia (Chronic) Left bundle branch block (Chronic) Lymphedema (Chronic) Mild mitral stenosis (Chronic) Mitral regurgitation (Chronic) Morbid obesity (Chronic) Osteopenia (Chronic) Restless leg syndrome (Chronic) Stage III chronic kidney disease (Chronic) Urinary incontinence (Chronic) Venous insufficiency (Chronic) Vulvar cyst (Chronic) Vulvovaginitis (Chronic) Surgical History History of cholecystectomy History of hysterectomy Family History Mother Diabetes Social History Preferred Language: Persian Communication Ability: Effective Visual Impairment: No Limitations Hearing Ability: Normal 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 Clerk Required: No Beliefs That Will Affect Care: None marital status: Current Living Situation: Spouse Current Living Situation Comment: [facility] Other Information That Helps Us Care for You: No Feels Safe at Home: Yes Safety Concerns: Feels Safe At This Time Smoking Status: Never smoker Do You Dip or Chew Tobacco: No Second Hand Exposure: No Tobacco Cessation Education Requested by Patient: No Hx Alcohol Use: No Hx Substance Use: No Review of Systems Review of Systems: All systems reviewed & are unremarkable except as noted in HPI & below Patient with fevers/chills/myalgias/headache/poor appetite Physical Exam Physical Exam: General: patient sitting at edge of the bed, tachypneic with minimal exertion, mild conversational dyspnea, requires assistance to bedside commode, AA&O x 4 Skin: warm, dry, intact, thickening and darkening of skin of bilateral LEs consistent with chronic venous insufficiency, no ulcers, bleeding or evidence of secondary infection HEENT: NC/AT, PERRL, EOMI, anicteric sclera, conjunctiva without injection, external ear normal to inspection and nontender, nares patent, dry mucus membranes, dentition intact, no oropharyngeal lesions, neck supple, trachea midline, no LAD, no thyromegaly, assessment of JVD limited by body habitus Heart: +S1/S2, regular, diminished heart sounds, no m/r/g Lungs: diminished breath sounds bilaterally, no rales/rhonchi/wheezes Abd: +BS, soft, NT/ND, no masses/organomegaly/ascites Ext: warm, 2+ pulses in UE/LE bilaterally, no clubbing/cyanosis or edema, changes of chronic venous insufficiency as above Neuro: nonfocal, patient AA&O x 4, speech intact, no facial droop, moving all extremities on command with equal strength 5/5 Results & Data Vital Signs (Past 12 Hours) Vital Signs Temp Pulse Pulse Resp BP BP Pulse Ox 09/22/18 13:00 98 H 23 09/22/18 12:46 99 H 24 151/75 H 91 09/22/18 12:45 98 H 31 H 91 09/22/18 12:31 106 H 35 H 160/68 H 93 09/22/18 12:30 101 H 22 93 09/22/18 12:15 130 H 35 H 156/73 H 98 09/22/18 12:06 106 H 26 H 166/73 H 97 09/22/18 12:01 103 H 29 H 166/73 H 97 09/22/18 12:00 103 H 22 98 09/22/18 11:48 100 H 25 H 97 09/22/18 11:47 99 H 28 H 97 09/22/18 11:46 100 H 25 H 158/74 H 97 09/22/18 11:45 103 H 33 H 93 09/22/18 11:40 103 H 23 93 09/22/18 11:39 103 H 25 H 162/72 H 93 09/22/18 11:30 103 H 26 H 97 09/22/18 11:15 106 H 34 H 94 09/22/18 11:05 103 H 29 H 95 09/22/18 10:57 102 H 31 H 180/74 H 95 09/22/18 10:56 100 H 28 H 180/74 H 96 09/22/18 10:34 38.3 C H 105 H 26 H 197/85 H 89 L Laboratory Results Lab Results 09/22/18 09/22/18 09/22/18 Range/Units 11:28 11:28 11:28 WBC 16.07 H (4.8-10.8) K/uL RBC 4.44 (4.2-5.4) M/uL Hgb 11.5 L (12.0-16.0) g/dL Hct 36.1 L (37-47) % MCV 81.3 (80-100) fL MCH 25.9 (25-34) pg MCHC 31.9 L (32-36) g/dL RDW Std Deviation 48.6 H (36.4-46.3) fL RDW Coeff of Joycelyn 16.3 H (11.5-14.5) % Plt Count 257 (130-400) K/uL MPV 10.4 (7.4-10.4) fL Immature Gran % (Auto) 0.2 % Neut % (Auto) 91.3 % Lymph % (Auto) 3.4 % [place] % (Auto) 4.4 % Eos % (Auto) 0.6 % Baso % (Auto) 0.1 % Immature Gran # (Auto) 0.04 H (0.00-0.02) K/uL Neut # (Auto) 14.67 H (1.4-6.5) K/uL Lymph # (Auto) 0.54 L (1.2-3.4) K/uL [place] # (Auto) 0.71 H (0.11-0.59) K/uL Eos # (Auto) 0.10 (0-0.5) K/uL Baso # (Auto) 0.01 (0-0.2) K/uL PT 18.4 H (9.0-12.0) Seconds INR 1.9 H (0.9-1.1) APTT 40.6 H (21.0-31.0) Seconds PTT Ratio 1.5 VBG pH (7.36-7.41) VBG pCO2 (38-50) mmHg VBG pO2 mmHg VBG HCO3 mmol/L VBG O2 Saturation % VBG Base Excess mEq/L Barometric Pressure mm/Hg Sodium (136-145) mmol/L Potassium (3.5-5.1) mmol/L Chloride (98-107) mmol/L Carbon Dioxide (21-32) mmol/L Anion Gap (3-11) BUN (7-18) mg/dl Creatinine (0.6-1.2) mg/dl Est Cr Clr Drug Dosing ml/min Est GFR ( Amer) Est GFR (Non-Af Amer) BUN/Creatinine Ratio (10-20) Glucose (70-99) mg/dl Lactate 2.0 (0.4-2.0) mmol/L Calcium (8.5-10.1) mg/dl Phosphorus (2.5-4.9) mg/dl Magnesium (1.8-2.4) mg/dl Total Bilirubin (0.2-1) mg/dl Direct Bilirubin (0-0.2) mg/dl AST (15-37) U/L ALT (12-78) U/L Alkaline Phosphatase (45-117) U/L Troponin I (0-0.045) ng/ml NT-Pro-B Natriuret Pep (0-900) pg/ml Total Protein (6.4-8.2) gm/dl Albumin (3.4-5.0) gm/dl Globulin (2.5-4.0) gm/dl Albumin/Globulin Ratio (0.9-2) Procalcitonin (0-0.5) ng/ml Urine Color Urine Appearance (Clear) Urine pH (4.5-7.5) Ur Specific Marilla (1.000-1.030) Urine Protein (Negative) Urine Glucose (UA) (Negative) Urine Ketones (Negative) Urine Blood (Negative) Urine Nitrite (Negative) Urine Bilirubin (Negative) Urine Urobilinogen (Negative) Ur Leukocyte Esterase (Negative) Urine WBC (Auto) (0-5) /hpf Urine RBC (Auto) (0-4) /hpf U Hyaline Cast (Auto) (0-5) /lpf U Epithel Cells (Auto) (0-5) /lpf Urine Bacteria (Auto) (Negative) 09/22/18 09/22/18 09/22/18 Range/Units 11:28 11:28 11:28 WBC (4.8-10.8) K/uL RBC (4.2-5.4) M/uL Hgb (12.0-16.0) g/dL Hct (37-47) % MCV (80-100) fL MCH (25-34) pg MCHC (32-36) g/dL RDW Std Deviation (36.4-46.3) fL RDW Coeff of Jyocelyn (11.5-14.5) % Plt Count (130-400) K/uL MPV (7.4-10.4) fL Immature Gran % (Auto) % Neut % (Auto) % Lymph % (Auto) % [place] % (Auto) % Eos % (Auto) % Baso % (Auto) % Immature Gran # (Auto) (0.00-0.02) K/uL Neut # (Auto) (1.4-6.5) K/uL Lymph # (Auto) (1.2-3.4) K/uL [place] # (Auto) (0.11-0.59) K/uL Eos # (Auto) (0-0.5) K/uL Baso # (Auto) (0-0.2) K/uL PT (9.0-12.0) Seconds INR (0.9-1.1) APTT (21.0-31.0) Seconds PTT Ratio VBG pH 7.43 H (7.36-7.41) VBG pCO2 44 (38-50) mmHg VBG pO2 33 mmHg VBG HCO3 29 mmol/L VBG O2 Saturation 64.2 % VBG Base Excess 3.9 mEq/L Barometric Pressure 736.6 mm/Hg Sodium 138 (136-145) mmol/L Potassium 3.8 (3.5-5.1) mmol/L Chloride 103 (98-107) mmol/L Carbon Dioxide 30 (21-32) mmol/L Anion Gap 5.0 (3-11) BUN 29 H (7-18) mg/dl Creatinine 1.76 H (0.6-1.2) mg/dl Est Cr Clr Drug Dosing 37.2 ml/min Est GFR ( Amer) 32.9 Est GFR (Non-Af Amer) 28.4 BUN/Creatinine Ratio 16.7 (10-20) Glucose 287 H (70-99) mg/dl Lactate (0.4-2.0) mmol/L Calcium 8.9 (8.5-10.1) mg/dl Phosphorus 2.0 L (2.5-4.9) mg/dl Magnesium 1.4 L (1.8-2.4) mg/dl Total Bilirubin 0.8 (0.2-1) mg/dl Direct Bilirubin 0.2 (0-0.2) mg/dl AST 18 (15-37) U/L ALT 21 (12-78) U/L Alkaline Phosphatase 99 (45-117) U/L Troponin I < 0.015 (0-0.045) ng/ml NT-Pro-B Natriuret Pep 713 (0-900) pg/ml Total Protein 7.3 (6.4-8.2) gm/dl Albumin 3.4 (3.4-5.0) gm/dl Globulin 3.9 (2.5-4.0) gm/dl Albumin/Globulin Ratio 0.9 (0.9-2) Procalcitonin 0.41 (0-0.5) ng/ml Urine Color Urine Appearance (Clear) Urine pH (4.5-7.5) Ur Specific [place] (1.000-1.030) Urine Protein (Negative) Urine Glucose (UA) (Negative) Urine Ketones (Negative) Urine Blood (Negative) Urine Nitrite (Negative) Urine Bilirubin (Negative) Urine Urobilinogen (Negative) Ur Leukocyte Esterase (Negative) Urine WBC (Auto) (0-5) /hpf Urine RBC (Auto) (0-4) /hpf U Hyaline Cast (Auto) (0-5) /lpf U Epithel Cells (Auto) (0-5) /lpf Urine Bacteria (Auto) (Negative) 09/22/18 Range/Units 13:00 WBC (4.8-10.8) K/uL RBC (4.2-5.4) M/uL Hgb (12.0-16.0) g/dL Hct (37-47) % MCV (80-100) fL MCH (25-34) pg MCHC (32-36) g/dL RDW Std Deviation (36.4-46.3) fL RDW Coeff of Joycelyn (11.5-14.5) % Plt Count (130-400) K/uL MPV (7.4-10.4) fL Immature Gran % (Auto) % Neut % (Auto) % Lymph % (Auto) % [place] % (Auto) % Eos % (Auto) % Baso % (Auto) % Immature Gran # (Auto) (0.00-0.02) K/uL Neut # (Auto) (1.4-6.5) K/uL Lymph # (Auto) (1.2-3.4) K/uL [place] # (Auto) (0.11-0.59) K/uL Eos # (Auto) (0-0.5) K/uL Baso # (Auto) (0-0.2) K/uL PT (9.0-12.0) Seconds INR (0.9-1.1) APTT (21.0-31.0) Seconds PTT Ratio VBG pH (7.36-7.41) VBG pCO2 (38-50) mmHg VBG pO2 mmHg VBG HCO3 mmol/L VBG O2 Saturation % VBG Base Excess mEq/L Barometric Pressure mm/Hg Sodium (136-145) mmol/L Potassium (3.5-5.1) mmol/L Chloride (98-107) mmol/L Carbon Dioxide (21-32) mmol/L Anion Gap (3-11) BUN (7-18) mg/dl Creatinine (0.6-1.2) mg/dl Est Cr Clr Drug Dosing ml/min Est GFR ( Amer) Est GFR (Non-Af Amer) BUN/Creatinine Ratio (10-20) Glucose (70-99) mg/dl Lactate (0.4-2.0) mmol/L Calcium (8.5-10.1) mg/dl Phosphorus (2.5-4.9) mg/dl Magnesium (1.8-2.4) mg/dl Total Bilirubin (0.2-1) mg/dl Direct Bilirubin (0-0.2) mg/dl AST (15-37) U/L ALT (12-78) U/L Alkaline Phosphatase (45-117) U/L Troponin I (0-0.045) ng/ml NT-Pro-B Natriuret Pep (0-900) pg/ml Total Protein (6.4-8.2) gm/dl Albumin (3.4-5.0) gm/dl Globulin (2.5-4.0) gm/dl Albumin/Globulin Ratio (0.9-2) Procalcitonin (0-0.5) ng/ml Urine Color Yellow Urine Appearance Cloudy H (Clear) Urine pH 5.5 (4.5-7.5) Ur Specific [place] 1.020 (1.000-1.030) Urine Protein 1+ H (Negative) Urine Glucose (UA) 1+ H (Negative) Urine Ketones Negative (Negative) Urine Blood 2+ H (Negative) Urine Nitrite Positive H (Negative) Urine Bilirubin Negative (Negative) Urine Urobilinogen Negative (Negative) Ur Leukocyte Esterase 2+ H (Negative) Urine WBC (Auto) >30 H (0-5) /hpf Urine RBC (Auto) 0-4 (0-4) /hpf U Hyaline Cast (Auto) 0 (0-5) /lpf U Epithel Cells (Auto) >30 H (0-5) /lpf Urine Bacteria (Auto) 4+ H (Negative) Diagnostic Findings XR chest 1V portable HISTORY: 73 years-old Female Sepsis acute sepsis with shortness of breath COMPARISON: Chest radiograph 05/26/2018 TECHNIQUE: Portable AP view of the chest FINDINGS: Cardiac silhouette is enlarged, unchanged. Pulmonary vascular congestion with mild interstitial coarsening. Mild bibasilar densities are noted suggestive of atelectasis. Possible trace pleural effusions without pneumothorax. Degenerative changes of the shoulders and spine. IMPRESSION: Cardiomegaly with pulmonary vascular congestion and interstitial coarsening suggestive of pulmonary edema. The above report was generated using voice recognition software. It may contain grammatical, syntax or spelling errors. Electronically signed by: Aguilar Chávez M.D. 09/22/2018 11:37 AM Dictated: 09/22/18 1135 Transcribed: 09/22/18 1135 ECG Additional Comments: Study shows sinus tachycardia at 103bpm, left axis deviat ion -33, LBBB, TW=561, OMU=089, JFc=290, no acute ischemic changes Code Status & VTE Plan Code Status FULL Critical Care Time Critical Care Time: No (1) Respiratory failure Chronicity: acute on chronic Respiratory failure complication: hypoxia Qualified Code(s): J96.21 - Acute and chronic respiratory failure with hypoxia (2) PNA (pneumonia) Laterality: bilateral Lung location: lower lobe of lung Pneumonia type: due to unspecified organism Qualified Code(s): J18.1 - Lobar pneumonia, unspecified organism (3) Diabetes Diabetes mellitus type: type 2 Diabetes mellitus long-term insulin use: with long-term use Diabetes mellitus complication status: with kidney complications Diabetes mellitus complication detail: with chronic kidney disease Chronic kidney disease stage: stage 3 (moderate) Qualified Code(s): E11.22 - Type 2 diabetes mellitus with diabetic chronic kidney disease; N18.3 - Chronic kidney disease, stage 3 (moderate); Z79.4 - MCFP (current) use of insulin (4) Hypothyroidism Hypothyroidism type: unspecified Qualified Code(s): E03.9 - Hypothyroidism, unspecified (5) COPD (chronic obstructive pulmonary disease) COPD type: unspecified COPD Qualified Code(s): J44.9 - Chronic obstructive pulmonary disease, unspecified (6) GERD (gastroesophageal reflux disease) Esophagitis presence: esophagitis presence not specified Qualified Code(s): K21.9 - Gastro-esophageal reflux disease without esophagitis (7) Depression Depression Type: unspecified Qualified Code(s): F32.9 - Major depressive disorder, single episode, unspecified (8) CHF (congestive heart failure) Heart failure type: diastolic Heart failure chronicity: chronic Qualified Code(s): I50.32 - Chronic diastolic (congestive) heart failure
[2018-09-22 14:01] LABS: Influenza A virus by PCR Neg for Influ A (Neg); Influenza B virus by PCR Neg for Influ B (Neg)
[2018-09-22] MEDS ORDERED: ACETAMINOPHEN 325 MG TAB PO PRN (15:35)
[2018-09-22] MEDS ORDERED: GLUCAGON FOR INJ 1 MG VIAL SQ PRN (15:35)
[2018-09-22] MEDS ORDERED: ALBUTEROL 0.083% NEBU SOLN 3 ML VIAL NEB PRN (15:35)
[2018-09-22] MEDS ORDERED: CARBOHYDRATES FOR HYPOGLYCEMIA PO PRN (15:35)
[2018-09-22] MEDS ORDERED: ONDANSETRON INJ 2 MG/ML 2 ML VIAL IV PRN (15:35)
[2018-09-22] MEDS ORDERED: guaiFENesin SUGAR FREE 100 MG/5 ML UDC PO PRN (15:35)
[2018-09-22] MEDS ORDERED: DOCUSATE SODIUM 100 MG CAP PO PRN (15:35)
[2018-09-22] MEDS ORDERED: GLUCOSE 10 TABS/TUBE PO PRN (15:35)
[2018-09-22] MEDS ORDERED: SODIUM CHLORIDE 0.9% 1000ML 1,000 ML IV SCH (15:35)
[2018-09-22] MEDS ORDERED: DEXTROSE 50% 50 ML SYRINGE IV PRN (15:35)
[2018-09-22] MEDS ORDERED: GLUCOSE 40% GEL 15 GM TUBE PO PRN (15:35)
[2018-09-22] MEDS ORDERED: POLYETHYLENE (MIRALAX) 17 GM PACK PO PRN (15:35)
[2018-09-22] MEDS ORDERED: POTASSIUM PHOS 3 MMOL/1 ML INFUSION IV STA (15:35)
[2018-09-22] MEDS ORDERED: DICLOFENAC SOD 1% GEL 100 GM TUBE EXT PRN (15:35)
[2018-09-22] MEDS ORDERED: PHARMACY GLYCEMIC MGMT CONSULT PRN (15:41)
[2018-09-22] MEDS: ALBUT/IPRATROP 3MG/0.5MG NEB 3 ML VIAL NEB SCH ×3 (15:47→23:19)
[2018-09-22] MEDS ORDERED: POTASSIUM PHOSPHATE 15 MMOL in SODIUM CHLORIDE 0.9% 250 ML IV ONE (16:30)
[2018-09-22] MEDS ORDERED: INSULIN GLARGINE SOLOSTAR 100 UNITS/ML 3 ML PEN SC ONE (16:30)
[2018-09-22] MEDS: LEVOTHYROXINE SODIUM 75 MCG TABLET PO SCH (16:57)
[2018-09-22] MEDS: LEVOTHYROXINE SODIUM 200 MCG TABLET PO SCH (16:57)
[2018-09-22] MEDS: PANTOprazole 40 MG TAB PO SCH (16:59)
[2018-09-22] MEDS: SERTRALINE HCL 100 MG TABLET PO SCH (16:59)
[2018-09-22] MEDS: INSULIN ASPART 100 UNITS/ML 3 ML PEN SC SCH ×2 (17:17→21:33)
[2018-09-22] MEDS: WARFARIN SOD 5 MG TAB PO SCH (17:28)
--- NOTE | 2018-09-22 19:48 | XRay Report ---
XR chest 2V routine HISTORY: Pneumonia. Sepsis. Shortness of breath. COMPARISON: Chest 09/22/2018. FINDINGS: No pneumothorax. The heart remains enlarged. Diffuse interstitial thickening and perihilar vascular prominence persists. This favors mild pulmonary edema. Bibasilar linear densities remain unc hanged. There are trace bilateral pleural effusions. IMPRESSION: No change in the cardiomegaly, trace bilateral pleural effusions, and diffuse interstitial thickening . This favors mild pulmonary edema. An atypical pneumonitis could also have a similar appearance. Electronically signed by: Mehrdad Salinas M.D. 09/22/2018 7:47 PM
--- NOTE | 2018-09-22 20:13 | Pharmacy Report ---
PHA: Glycemic Control AP - Date of Service September 22, 2018 - Assessment & Plan Ms. Cisneros is a 73 yo F known to the pharmacy glycemic service from previous admissions Patient receives a home regimen using NPH and Regular Insulin that provides > 180 units per day Patient now with respiratory failure/possible pneumonia receiving IV antibiotics as well as methylprednisolone 125 mg IV midday today and will continue Prednisone 40mg po daily BSG 287 midday check and 373 mg/dl by dinnertime. The patient is best controlled using a basal bolus regimen while admitted. * Basal insulin: Lantus 65 units at 1730 hours today X 1 and will contue based on glycemic response * Correctional Insulin: Novolog Correction per scale ACHS Goal Range: Low 110 mg/dL - High 140 mg/dL Correction Factor: 10 mg/dL/unit * Prandial insulin: Per carb ratio of 1 unit per 4 grams CHO consumed Pharmacy will continue to monitor patient daily and write orders per [facility] inpatient glycemic control protocol. Thanks. * Please note that the plan above was derived based on current level of insulin resistance and hospital stress. These recommendations are appropriate for inpatient admission only. Plan of care upon discharge will need to be reassessed to avoid potential outpatient hypo/hyperglycemia.
[2018-09-22] MEDS ORDERED: [UNRECOGNIZED DRUG - OTHER] SC SCH (21:00)
[2018-09-22] MEDS ORDERED: NovoLIN-R INSULIN PER UNIT CHARGE SC SCH (21:00)
[2018-09-22] MEDS ORDERED: NovoLIN-R INSULIN PER UNIT CHARGE SQ SCH (21:00)
[2018-09-22] MEDS: BUMETANIDE 1 MG TAB PO SCH (21:30)
[2018-09-22] MEDS: ROPINIROLE HCL 0.25 MG TABLET PO SCH (21:30)
[2018-09-22] MEDS: SIMVASTATIN 20 MG TAB PO SCH (21:31)
[2018-09-22] MEDS: ASPIRIN 81 MG ECTAB PO SCH (21:31)
[2018-09-22] MEDS: LABETALOL HCL 200 MG TAB PO SCH (21:31)
[2018-09-22] MEDS: DOXYCYCLINE HYCLATE 100 MG in DEXTROSE 5% 100 ML IV SCH (23:55)
[2018-09-23 01:01] LABS: Hematocrit (blood only) 33.3 % (37-47); Hemoglobin 10.6 g/dL (12.0-16.0); Immature Granulocytes # (auto) 0.07 K/uL (0.00-0.02); Immature Granulocytes % (auto) 0.4 %; Lymphocytes # (auto) 0.62 K/uL (1.2-3.4); Lymphocytes % (auto) 3.2 %; Mean Corpuscular Hgb Conc 31.8 g/dL (32-36); Mean Corpuscular Volume 80.4 fL (80-100); Mean Platelet Volume 10.4 fL (7.4-10.4); Monocytes % (auto) 4.1 %; Neutrophils # (auto) 18.16 K/uL (1.4-6.5); Neutrophils % (auto) 92.3 %; Platelet Count 275 K/uL (130-400); RDW Coefficient of Variation 16.5 % (11.5-14.5); RDW Standard Deviation 48.2 fL (36.4-46.3); Red Blood Count 4.14 M/uL (4.2-5.4); White Blood Count 19.65 K/uL (4.8-10.8)
[2018-09-23 01:10] LABS: INR 1.9 (0.9-1.1); Prothrombin Time 18.2 Seconds (9.0-12.0)
[2018-09-23 01:19] LABS: BUN Creatinine Ratio 16.6 (10-20); Calcium 8.5 mg/dl (8.5-10.1); Est GFR (African American) 28.9; Est GFR (Non-African American) 24.9; Phosphorus 2.3 mg/dl (2.5-4.9); Potassium 3.4 mmol/L (3.5-5.1)
[2018-09-23] MEDS ORDERED: INSULIN ASPART 100 UNITS/ML 3 ML PEN SC SCH (02:00)
[2018-09-23] MEDS: ALBUT/IPRATROP 3MG/0.5MG NEB 3 ML VIAL NEB SCH ×6 (03:38→23:24)
[2018-09-23] MEDS: LEVOTHYROXINE SODIUM 200 MCG TABLET PO SCH (05:33)
[2018-09-23] MEDS: cefTRIAXone SODIUM 1,000 MG in DEXTROSE 5% 50 ML IV SCH (07:49)
[2018-09-23] MEDS: CYANOCOBALAMIN 500 MCG TABLET (VITAMIN B-12) PO SCH (07:51)
[2018-09-23] MEDS: CHOLECALCIFEROL 1,000 UNITS TAB PO SCH (07:52)
[2018-09-23] MEDS: predniSONE 20 MG TAB PO SCH (07:53)
[2018-09-23] MEDS: PANTOprazole 40 MG TAB PO SCH (07:53)
[2018-09-23] MEDS: LABETALOL HCL 200 MG TAB PO SCH ×2 (07:53→21:03)
[2018-09-23] MEDS: SERTRALINE HCL 100 MG TABLET PO SCH (07:54)
[2018-09-23] MEDS: POTASSIUM CHLORIDE 20 MEQ TABCR PO SCH (07:57)
[2018-09-23] MEDS: INSULIN ASPART 100 UNITS/ML 3 ML PEN SC SCH ×4 (07:58→21:18)
[2018-09-23] MEDS: BUMETANIDE 1 MG TAB PO SCH ×2 (08:01→21:03)
[2018-09-23] MEDS ORDERED: INSULIN HUMAN NPH SC SCH ×2 (09:30→16:30)
[2018-09-23] MEDS ORDERED: BUMETANIDE 1 MG TAB PO ONE (11:30)
[2018-09-23] MEDS: DOXYCYCLINE HYCLATE 100 MG in DEXTROSE 5% 100 ML IV SCH ×2 (11:49→23:55)
[2018-09-23] MEDS: ALBUTEROL 0.083% NEBU SOLN 3 ML VIAL NEB SCH ×4 (13:28→23:25)
[2018-09-23] MEDS: WARFARIN SOD 2.5 MG TAB PO SCH (15:15)
--- NOTE | 2018-09-23 15:28 | Pharmacy Report ---
Pharmacy Glycemic Short Note 2 - Date of Service September 23, 2018 - Glycemic Short BSG Results (Last 24 hours): 09/22/18 09/22/18 09/22/18 16:53 20:39 20:40 Glucose POC Glucose 373 H* 386 H* 355 H* 09/23/18 09/23/18 09/23/18 00:50 02:02 07:36 Glucose 273 H POC Glucose 273 H 198 H 09/23/18 09/23/18 09:40 11:55 Glucose POC Glucose 245 H 225 H ASSESSMENT/PLAN: 09/23: * Patient received 123 units of insulin yesterday, of which 65 units were basal insulin last evening * Fasting this AM elevated at 198 mg/dL - patient also starting prednisone 40 mg daily (recieved solumedrol last night) * Will start NPH for this morning as it will help with prednisone coverage (~0.4 units/kg) * Lunchtime BSG trending up with tighten carb coverage with steroids on board 09/22: * Ms. Cisneros is a 73 yo F known to the pharmacy glycemic service from previous admissions * Patient receives a home regimen using NPH and Regular Insulin that provides > 180 units per day * Patient now with respiratory failure/possible pneumonia receiving IV antibiotics as well as methylprednisolone 125 mg IV midday today and will continue Prednisone 40mg po daily * BSG 287 midday check and 373 mg/dl by dinnertime. * The patient is best controlled using a basal bolus regimen while admitted. PLAN: * Basal insulin: NPH 50 x 1 - will add NPH for dinner time * Correctional Insulin: Novolog Correction per scale ACHS Goal Range: Low 110 mg/dL - High 140 mg/dL Correction Factor: 10 mg/dL/unit * Prandial insulin: Per carb ratio of 1 unit per 3 grams CHO consumed Pharmacy will continue to monitor patient daily and write orders per [facility] inpatient glycemic control protocol. Thanks.
--- NOTE | 2018-09-23 18:38 | Family Medicine Progress Note ---
Date of Service September 23, 2018 Assessment & Plan (1) Respiratory failure: 73 yo M with history of COPD no on home o2, CHF, CKD, history of PE on warfarin, hypothyroidism, GERD presenting with Fever, Acute Respiratory Failure requiring initial use of BiPAP. Received IV Bumex and Solumedrol in ER. Now improved with NC in place. -secondary to COPD exacerbation in setting of Pneumonia vs CHF exacerbation -Clinically improved , no longer on BIPAP -maintaining saturation on 3 L NC -Continue Prednisone 40 mg daily, Duoneb scheduled -received additional dose of Bumex - Continue Ceftriaxone, Doxycycline for suspected underlying pneumonia -attempt to wean oxygen (2) PNA (pneumonia): afebrile, leukocytes trending upwards but more likely due to Steroid- induced demargination as opposed to worsening infection Continue to monitor clinically Ceftriaxone, Doxycycline as above (3) COPD (chronic obstructive pulmonary disease): as above (4) Diabetes: Patient with DM on Novolin and regular insulin at home. Last HgAIC=8 on 06/16/18. -Glycemic management consult (5) Anemia: secondary to chronic disease normocytic normochromic H/H stable Continue to monitor daily cbc (6) Chronic anticoagulation: due to h/o o PE currently on alternating 2.5 mg, and 5 mg doses of warfarin INR 1.9 today, recheck tomorrow with higher dose (7) SHELIA on CPAP: CPAP at night (8) Vitamin D deficiency: Vit supplementation (9) CHF (congestive heart failure): added one dose of Bumex, reassess volume status daily possible contributor to respiratory status (10) Hypothyroidism: Continue Synthroid (11) GERD (gastroesophageal reflux disease): Continue Omeprazole (12) Depression: Continue Sertraline, prn xanax (13) Restless leg syndrome: Continue Ropinorole (14) DVT prophylaxis: already on coumadin Supervising Physician Co-Signing Physician Notes Patient seen and examined with Dr. Combs and MS FLY Gardner. Agree with history, exam findings, assessment and plan of care as outlined by Dr. Combs. 73 year old female with multiple medical issues including COPD, SHELIA on CPAP, morbid obesity, HTN, DM, CKD, PE (AC with Coumadin) admitted with respiratory failure secondary to CAP and mild COPD exacerbation. Reports feeling better today. On exam, breathing comfortably, but wheezes throughout all lung barnes. Lower extremities with nonpitting edema and woody, venous stasis changes. 1. Respiratory failure secondary to COPD exacerbation. Initially requiring BiPAP now weaned to 2L NC (no home O2 requirement). Titrating O2 to <92%. Duonebs q2h PRN, s/p solumedrol in ED, transition to pred 40mg qd. Influenza negative. dc CCM. 2. CAP. No infiltrates on CXR. Leukocytosis (WBC 16?19) secondary to acute infectious process but remaining elevated secondary to steroid use. Ceftriaxone and doxy BID. Repeat CXR with small pleural effusion and central congestion. BCx NGTD. 3. DM. Novolin + regular insulin. Glycemic management consult. 4. PE, on chronic anticoagulation with Coumadin. INR 1.9 today. Home Coumadin 5mg SunMWF, 2.5mg TThSa. Daily INRs. 5. hx of HFpEF, mildly fluid overloaded on CXR. Additional Bumex dose today. Follow I/Os and daily weights. Echo 07/2016 with EF 55-60%. Dry weight 315- 319#. Continue home bumex, labetaolol. 6. elevated troponin. Initially 0.053?0.6 ?0.044. No chest pain. Now normalized. Likely secondary to increased demand when she was hypoxic. 7. SHELIA. Family member bringing mask from home. Dispo: pending clinical improvement Subjective Patient's breathing is improving. She remains on 3 L and is maintaining oxygen saturation. She continues to cough/wheeze but felt better with nebulizer treatment. Fever is resolved. Review of Systems Constitutional: no fever, no chills, no fatigue and no weakness Respiratory: no cough, no dyspnea and no wheezing Cardiovascular: no chest pain, no palpitations, no edema and no calf pain Gastrointestinal: no abdominal pain, no nausea, no vomiting and no change in stools Physical Exam Physical Exam: GENERAL APPEARANCE: alert and cooperative, and appears to be in no acute distress. EYES: PERRL, EOMI. vision is grossly intact. CARDIAC: Normal S1 and S2. No S3, S4 or murmurs. Rhythm is regular LUNGS: Bilateral coarse breath sounds, diffuse wheezing ABDOMEN: Positive bowel sounds. Soft, nondistended, nontender. No guarding or rebound. No masses. LOWER EXTREMITY: no edema NEUROLOGICAL: CN II-XII grossly intact. moves extremities Results & Data Vital Signs (Past 12 Hours) Vital Signs Temp Pulse Pulse Resp BP BP Pulse Ox 09/23/18 15:31 77 18 94 09/23/18 14:31 36.7 C 71 22 131/62 92 09/23/18 14:20 76 09/23/18 11:15 67 18 92 09/23/18 11:04 36.6 C 68 18 143/69 H 95 09/23/18 07:15 36.9 C 71 19 124/61 96 09/23/18 07:13 71 18 96 09/23/18 07:00 70 Resident Activity Tracking Resident Involvement: Resident Care Provided Care Provided: Adult [facility] Medicine (1) Diabetes Chronic kidney disease stage: stage 3 (moderate) Diabetes mellitus complication detail: with chronic kidney disease Diabetes mellitus complication status: with kidney complications Diabetes mellitus usp insulin use: 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 Diabetes mellitus type: type 2 Qualified Code(s): E11.22 - Type 2 diabetes mellitus with diabetic chronic kidney disease; N18.3 - Chronic kidney disease, stage 3 (moderate); Z79.4 - nursing home (current) use of insulin (2) CHF (congestive heart failure) Heart failure chronicity: chronic Heart failure type: diastolic Qualified Code(s): I50.32 - Chronic diastolic (congestive) heart failure (3) Depression Depression Type: unspecified Qualified Code(s): F32.9 - Major depressive disorder, single episode, unspecified (4) Hypothyroidism Hypothyroidism type: unspecified Qualified Code(s): E03.9 - Hypothyroidism, unspecified (5) Respiratory failure Chronicity: acute on chronic Respiratory failure complication: hypoxia Qualified Code(s): J96.21 - Acute and chronic respiratory failure with hypoxia (6) COPD (chronic obstructive pulmonary disease) COPD type: unspecified COPD Qualified Code(s): J44.9 - Chronic obstructive pulmonary disease, unspecified (7) GERD (gastroesophageal reflux disease) Esophagitis presence: esophagitis presence not specified Qualified Code(s): K21.9 - Gastro-esophageal reflux disease without esophagitis (8) PNA (pneumonia) Laterality: bilateral Lung location: lower lobe of lung Pneumonia type: due to unspecified organism Qualified Code(s): J18.1 - Lobar pneumonia, unspecified organism
[2018-09-23] MEDS: ASPIRIN 81 MG ECTAB PO SCH (21:03)
[2018-09-23] MEDS: ROPINIROLE HCL 0.25 MG TABLET PO SCH (21:03)
[2018-09-23] MEDS: SIMVASTATIN 20 MG TAB PO SCH (21:03)
[2018-09-24] MEDS ORDERED: INSULIN ASPART 100 UNITS/ML 3 ML PEN SC SCH
[2018-09-24] MEDS: ALBUT/IPRATROP 3MG/0.5MG NEB 3 ML VIAL NEB SCH ×6 (03:46→23:03)
[2018-09-24] MEDS: ALBUTEROL 0.083% NEBU SOLN 3 ML VIAL NEB SCH ×2 (03:47→10:32)
[2018-09-24] MEDS: LEVOTHYROXINE SODIUM 75 MCG TABLET PO SCH (05:48)
[2018-09-24] MEDS: LEVOTHYROXINE SODIUM 200 MCG TABLET PO SCH (05:48)
[2018-09-24] MEDS: BUMETANIDE 1 MG TAB PO SCH ×2 (07:39→20:26)
[2018-09-24] MEDS: CHOLECALCIFEROL 1,000 UNITS TAB PO SCH (07:39)
[2018-09-24] MEDS: cefTRIAXone SODIUM 1,000 MG in DEXTROSE 5% 50 ML IV SCH (07:39)
[2018-09-24] MEDS: LABETALOL HCL 200 MG TAB PO SCH ×2 (07:39→20:26)
[2018-09-24] MEDS: CYANOCOBALAMIN 500 MCG TABLET (VITAMIN B-12) PO SCH (07:39)
[2018-09-24] MEDS: SERTRALINE HCL 100 MG TABLET PO SCH (07:40)
[2018-09-24] MEDS: POTASSIUM CHLORIDE 20 MEQ TABCR PO SCH (07:40)
[2018-09-24] MEDS: predniSONE 20 MG TAB PO SCH (07:40)
[2018-09-24] MEDS: PANTOprazole 40 MG TAB PO SCH (07:40)
[2018-09-24 07:51] LABS: Basophils # (auto) 0.01 K/uL (0-0.2); Basophils % (auto) 0.1 %; Eosinophils # (auto) 0.09 K/uL (0-0.5); Eosinophils % (auto) 0.6 %; Hematocrit (blood only) 34.1 % (37-47); Hemoglobin 10.7 g/dL (12.0-16.0); Immature Granulocytes # (auto) 0.03 K/uL (0.00-0.02); Immature Granulocytes % (auto) 0.2 %; Lymphocytes # (auto) 1.54 K/uL (1.2-3.4); Lymphocytes % (auto) 10.8 %; Mean Corpuscular Hgb Conc 31.4 g/dL (32-36); Mean Corpuscular Volume 81.4 fL (80-100); Mean Platelet Volume 10.4 fL (7.4-10.4); Monocytes # (auto) 1.35 K/uL (0.11-0.59); Monocytes % (auto) 9.5 %; Neutrophils # (auto) 11.19 K/uL (1.4-6.5); Neutrophils % (auto) 78.8 %; Platelet Count 259 K/uL (130-400); RDW Coefficient of Variation 16.9 % (11.5-14.5); RDW Standard Deviation 51.1 fL (36.4-46.3); Red Blood Count 4.19 M/uL (4.2-5.4); White Blood Count 14.21 K/uL (4.8-10.8)
[2018-09-24 08:02] LABS: INR 2.2 (0.9-1.1); Prothrombin Time 21.6 Seconds (9.0-12.0)
[2018-09-24] MEDS: INSULIN ASPART 100 UNITS/ML 3 ML PEN SC SCH ×4 (08:15→20:31)
[2018-09-24 08:18] LABS: BUN Creatinine Ratio 21.8 (10-20); Calcium 8.6 mg/dl (8.5-10.1); Creatinine Clr Calc Pharmacy 42.6 ml/min; Est GFR (African American) 32.9; Est GFR (Non-African American) 28.4; Potassium 3.4 mmol/L (3.5-5.1)
[2018-09-24 08:33] LABS: Estimated Average Glucose 197 mg/dl; Hemoglobin A1C 8.5 % (4.5-5.6)
[2018-09-24] MEDS: INSULIN HUMAN NPH SC SCH ×2 (09:09→20:33)
[2018-09-24] MEDS: DOXYCYCLINE HYCLATE 100 MG in DEXTROSE 5% 100 ML IV SCH ×2 (12:08→23:31)
[2018-09-24] MEDS: WARFARIN SOD 5 MG TAB PO SCH (15:46)
--- NOTE | 2018-09-24 16:06 | Family Medicine Progress Note ---
Date of Service September 24, 2018 Assessment & Plan (1) Respiratory failure: 73 yo M with history of COPD no on home o2, CHF, CKD, history of PE on warfarin, hypothyroidism, GERD presenting with Fever, Acute Respiratory Failure requiring initial use of BiPAP. Received IV Bumex and Solumedrol in ER. Now improved with NC in place. -secondary to COPD exacerbation in setting of Pneumonia vs CHF exacerbation -Clinically improved , no longer on BIPAP , wheezing resolved, however maintains new oxygen requirement -maintaining saturation on 2 L NC, weaning. -Continue Prednisone 40 mg daily, Duoneb scheduled -Continue home dose of Bumex daily - Continue Ceftriaxone, Doxycycline for suspected underlying pneumonia -attempt to wean oxygen (2) PNA (pneumonia): afebrile, white blood cell coming down Continue to monitor clinically Ceftriaxone, Doxycycline as above (3) COPD (chronic obstructive pulmonary disease): as above (4) Diabetes: Patient with DM on Novolin and regular insulin at home. Last HgAIC=8 on 06/16/18. -Glycemic management consult (5) Anemia: secondary to chronic disease normocytic normochromic H/H stable Continue to monitor daily cbc (6) Chronic anticoagulation: due to h/o PE currently on alternating 2.5 mg, and 5 mg doses of warfarin INR 2.2 today, Continue to monitor daily INR (7) SHELIA on CPAP: CPAP at night (8) Vitamin D deficiency: Vit supplementation (9) CHF (congestive heart failure): reassess volume status daily, possible contributor to respiratory status Cr elevated but trending down to baseline range Continue to monitor (10) Hypothyroidism: Continue Synthroid (11) GERD (gastroesophageal reflux disease): Continue Omeprazole (12) Depression: Continue Sertraline, prn xanax (13) Restless leg syndrome: Continue Ropinorole (14) DVT prophylaxis: already on Coumadin Supervising Physician Co-Signing Physician Notes Patient seen and examined with Dr. Combs. Agree with history, exam findings, assessment and plan of care as outlined by Dr. Combs. 73 year old female with multiple medical issues including COPD, SHELIA on CPAP, morbid obesity, HTN, DM, CKD, PE (AC with Coumadin) admitted with respiratory failure secondary to CAP and mild COPD exacerbation. Reports feeling better today. On exam, breathing comfortably, minimal air movement. No rales or crackles. Lower extremities with nonpitting edema and woody, venous stasis changes. 1. Respiratory failure secondary to COPD exacerbation. Initially requiring BiPAP now weaned to 2L NC (no home O2 requirement) with walking. Continue weaning attempts. Titrating O2 to <92%. Duonebs q2h PRN, s/p solumedrol in ED, transition to pred 40mg qd. Influenza negative. 2. CAP. No infiltrates on CXR. Leukocytosis (WBC 16?19?14) secondary to acute infectious process but remaining elevated secondary to steroid use. Ceftriaxone and doxy BID. Repeat CXR with small pleural effusion and central congestion. BCx NGTD. 3. DM. Novolin + regular insulin. Glycemic management consult. 4. PE, on chronic anticoagulation with Coumadin. INR 2.2 today. Home Coumadin 5mg SunMWF, 2.5mg TThSa. Daily INRs. 5. hx of HFpEF, mildly fluid overloaded on CXR. Additional Bumex dose today. Follow I/Os and daily weights. Echo 07/2016 with EF 55-60%. Dry weight 315- 319#. Continue home bumex, labetaolol. 6. elevated troponin. Normalized. No chest pain. Dispo: pending clinical improvement and ability to wean off supplemental O2 Subjective No acute events overnight. Patient continues to require oxygen though she has been able to wean to 2 L. She denies fevers, chills, chest tightness. SObB worsens with ambulation. Patient reported desaturation to 85% while ambulating Review of Systems Constitutional: no fever, no chills, no fatigue and no weakness Respiratory: + cough and + dyspnea; no wheezing Cardiovascular: no chest pain, no palpitations and no calf pain Gastrointestinal: no abdominal pain, no nausea, no vomiting and no change in stools Physical Exam Physical Exam: GENERAL APPEARANCE: obese, alert and cooperative, and appears to be in no acute distress. EYES: PERRL, EOMI. vision is grossly intact. NECK: Neck supple, non-tender without lymphadenopathy CARDIAC: Normal S1 and S2. No S3, S4 or murmurs. Rhythm is regular LUNGS: Decreased breath sounds bilaterally, No rales, rhonchi, wheezing ABDOMEN: Positive bowel sounds. Soft, nondistended, nontender. No guarding or rebound. No masses. LOWER EXTREMITY: no edema NEUROLOGICAL: CN grossly II-XII intact. moves extremities Results & Data Vital Signs (Past 12 Hours) Vital Signs Temp Pulse Pulse Resp BP Pulse Ox 09/24/18 15:25 82 16 96 09/24/18 15:00 72 09/24/18 14:44 36.5 C 70 23 158/65 H 95 09/24/18 14:00 85 L 09/24/18 11:20 68 16 93 09/24/18 10:58 36.6 C 68 21 143/66 H 95 09/24/18 08:00 63 09/24/18 07:37 83 16 96 09/24/18 07:00 36.7 C 72 20 146/77 H 94 Resident Activity Tracking Resident Involvement: Resident Care Provided Care Provided: Adult Hospital Medicine (1) Diabetes Chronic kidney disease stage: stage 3 (moderate) Diabetes mellitus complication detail: with chronic kidney disease Diabetes mellitus complication status: with kidney complications Diabetes mellitus fci insulin use: with emt intermediate use Diabetes mellitus type: type 2 Qualified Code(s): E11.22 - Type 2 diabetes mellitus with diabetic chronic kidney disease; N18.3 - Chronic kidney disease, stage 3 (moderate); Z79.4 - emt intermediate (current) use of insulin (2) CHF (congestive heart failure) Heart failure chronicity: chronic Heart failure type: diastolic Qualified Code(s): I50.32 - Chronic diastolic (congestive) heart failure (3) Depression Depression Type: unspecified Qualified Code(s): F32.9 - Major depressive disorder, single episode, unspecified (4) Hypothyroidism Hypothyroidism type: unspecified Qualified Code(s): E03.9 - Hypothyroidism, unspecified (5) Respiratory failure Chronicity: acute on chronic Respiratory failure complication: hypoxia Qualified Code(s): J96.21 - Acute and chronic respiratory failure with hypoxia (6) COPD (chronic obstructive pulmonary disease) COPD type: unspecified COPD Qualified Code(s): J44.9 - Chronic obstructive pulmonary disease, unspecified (7) GERD (gastroesophageal reflux disease) Esophagitis presence: esophagitis presence not specified Qualified Code(s): K21.9 - Gastro-esophageal reflux disease without esophagitis (8) PNA (pneumonia) Laterality: bilateral Lung location: lower lobe of lung Pneumonia type: due to unspecified organism Qualified Code(s): J18.1 - Lobar pneumonia, unspecified organism
[2018-09-24] MEDS: ASPIRIN 81 MG ECTAB PO SCH (20:25)
[2018-09-24] MEDS: SIMVASTATIN 20 MG TAB PO SCH (20:27)
[2018-09-24] MEDS: ROPINIROLE HCL 0.25 MG TABLET PO SCH (20:27)
[2018-09-25] MEDS: ALBUT/IPRATROP 3MG/0.5MG NEB 3 ML VIAL NEB SCH ×2 (03:31→07:06)
[2018-09-25] MEDS: LEVOTHYROXINE SODIUM 75 MCG TABLET PO SCH (06:08)
[2018-09-25] MEDS: LEVOTHYROXINE SODIUM 200 MCG TABLET PO SCH (06:08)
[2018-09-25 06:46] LABS: Basophils # (auto) 0.01 K/uL (0-0.2); Basophils % (auto) 0.1 %; Eosinophils # (auto) 0.15 K/uL (0-0.5); Eosinophils % (auto) 1.5 %; Hemoglobin 10.8 g/dL (12.0-16.0); Immature Granulocytes # (auto) 0.03 K/uL (0.00-0.02); Immature Granulocytes % (auto) 0.3 %; Lymphocytes # (auto) 1.81 K/uL (1.2-3.4); Lymphocytes % (auto) 17.7 %; Mean Corpuscular Hgb Conc 31.8 g/dL (32-36); Mean Corpuscular Volume 81.5 fL (80-100); Mean Platelet Volume 10.7 fL (7.4-10.4); Monocytes # (auto) 0.78 K/uL (0.11-0.59); Monocytes % (auto) 7.6 %; Neutrophils # (auto) 7.45 K/uL (1.4-6.5); Neutrophils % (auto) 72.8 %; Platelet Count 280 K/uL (130-400); RDW Coefficient of Variation 16.9 % (11.5-14.5); RDW Standard Deviation 50.5 fL (36.4-46.3); Red Blood Count 4.17 M/uL (4.2-5.4); White Blood Count 10.23 K/uL (4.8-10.8)
[2018-09-25 07:04] LABS: INR 2.3 (0.9-1.1); Prothrombin Time 22.1 Seconds (9.0-12.0)
[2018-09-25 07:23] LABS: BUN Creatinine Ratio 22.3 (10-20); Creatinine Clr Calc Pharmacy 41.7 ml/min; Est GFR (Non-African American) 27.6; Potassium 3.4 mmol/L (3.5-5.1)
[2018-09-25] MEDS: cefTRIAXone SODIUM 1,000 MG in DEXTROSE 5% 50 ML IV SCH (08:55)
[2018-09-25] MEDS: INSULIN ASPART 100 UNITS/ML 3 ML PEN SC SCH ×4 (08:55→21:18)
[2018-09-25] MEDS: SERTRALINE HCL 100 MG TABLET PO SCH (08:56)
[2018-09-25] MEDS: predniSONE 20 MG TAB PO SCH (08:56)
[2018-09-25] MEDS: LABETALOL HCL 200 MG TAB PO SCH ×2 (08:56→20:07)
[2018-09-25] MEDS: PANTOprazole 40 MG TAB PO SCH (08:56)
[2018-09-25] MEDS: POTASSIUM CHLORIDE 20 MEQ TABCR PO SCH (08:56)
[2018-09-25] MEDS: CYANOCOBALAMIN 500 MCG TABLET (VITAMIN B-12) PO SCH (08:57)
[2018-09-25] MEDS: BUMETANIDE 1 MG TAB PO SCH ×2 (08:57→20:06)
[2018-09-25] MEDS: CHOLECALCIFEROL 1,000 UNITS TAB PO SCH (08:57)
[2018-09-25] MEDS: INSULIN HUMAN NPH SC SCH ×2 (08:57→21:18)
[2018-09-25] MEDS ORDERED: metOLazone 5 MG TABLET PO ONE (09:11)
[2018-09-25] MEDS ORDERED: POTASSIUM CHLORIDE 20 MEQ TABCR PO STA (09:25)
[2018-09-25] MEDS: DOXYCYCLINE HYCLATE 100 MG in DEXTROSE 5% 100 ML IV SCH (11:36)
--- NOTE | 2018-09-25 15:15 | Pharmacy Report ---
Pharmacy Glycemic Short Note 2 - Date of Service September 25, 2018 - Glycemic Short BSG Results (Last 24 hours): 09/24/18 09/24/18 09/25/18 16:03 20:27 06:29 Glucose 137 H POC Glucose 176 H 154 H 09/25/18 09/25/18 09/25/18 07:24 11:45 11:48 Glucose POC Glucose 118 H 58 L* 60 L* 09/25/18 12:04 Glucose POC Glucose 108 H ASSESSMENT/PLAN: 09/25: * Patient received total 183 units of insulin yesterday; 110 of which were basal insulin. * Fasting BSG at goal but lunch BSG was low at 58 indicating the AM NPH dose of 70 units was slightly too much. Will decrease this to 60 units tomorrow as long as patient still on Prednisone 40 mg daily. * Further Novolog carb ratio was loosened to 4 with lunch today to loosen meal coverages for the rest of the day. 09/23: * Patient received 123 units of insulin yesterday, of which 65 units were basal insulin last evening * Fasting this AM elevated at 198 mg/dL - patient also starting prednisone 40 mg daily (recieved solumedrol last night) * Will start NPH for this morning as it will help with prednisone coverage (~0.4 units/kg) * Lunchtime BSG trending up with tighten carb coverage with steroids on board 09/22: * Ms. Cisneros is a 73 yo F known to the pharmacy glycemic service from previous admissions * Patient receives a home regimen using NPH and Regular Insulin that provides > 180 units per day * Patient now with respiratory failure/possible pneumonia receiving IV antib iotics as well as methylprednisolone 125 mg IV midday today and will continue Prednisone 40mg po daily * BSG 287 midday check and 373 mg/dl by dinnertime. * The patient is best controlled using a basal bolus regimen while admitted. PLAN: * Basal insulin: NPH 70 this AM- decreased to 60 units QAM starting tomorrow NPH 40 units QHS continued. * Correctional Insulin: continued Novolog Correction per scale ACHS Goal Range: Low 110 mg/dL - High 140 mg/dL Correction Factor: 10 mg/dL/unit * Prandial insulin: loosened Per carb ratio of 1 unit per 4 grams CHO consumed PLAN FOR DISCHARGE: * HbA1c = 8.5% on 09/24/18. Patient was on NPH 40 units BID with breakfast and supper + Regular insulin 40 units/sliding scale BID 0with breakfast and supper + Regular insulin 20 units/sliding scale with lunch. * Recommend discharge on home insulin regimen as long as patient is not reporting significant lows. She will need NPH dose slightly increased in the AM if she is discharged on Prednisone 40 mg QAM.
[2018-09-25] MEDS: WARFARIN SOD 2.5 MG TAB PO SCH (17:35)
--- NOTE | 2018-09-25 18:23 | Family Medicine Progress Note ---
Date of Service September 25, 2018 Assessment & Plan (1) Respiratory failure: 73 yo M with history of COPD no on home o2, CHF, CKD, history of PE on warfarin, hypothyroidism, GERD presenting with Fever, Acute Respiratory Failure requiring initial use of BiPAP. Received IV Bumex and Solumedrol in ER. Now improved with NC in place. -secondary to COPD exacerbation in setting of Pneumonia vs CHF exacerbation -Clinically improved , no longer on BIPAP , wheezing resolved, however maintains new oxygen requirement -maintaining saturation on 3 L NC -Continue Prednisone 40 mg daily, Duoneb scheduled -Continue home dose of Bumex daily, Add Metolazone dose 5 mg x 1 - Continue Ceftriaxone, Doxycycline for suspected underlying pneumonia -attempt to wean oxygen (2) PNA (pneumonia): afebrile, white blood cell coming down Continue to monitor clinically Ceftriaxone, Doxycycline as above (3) COPD (chronic obstructive pulmonary disease): as above (4) Diabetes: Patient with DM on Novolin and regular insulin at home. Last HgAIC=8 on 06/16/18. -Glycemic management consult (5) Anemia: secondary to chronic disease normocytic normochromic H/H stable Continue to monitor daily cbc (6) Chronic anticoagulation: due to h/o PE currently on alternating 2.5 mg, and 5 mg doses of warfarin Continue to monitor daily INR (7) SHELIA on CPAP: CPAP at night (8) Vitamin D deficiency: Vit supplementation (9) CHF (congestive heart failure): reassess volume status daily, possible contributor to respiratory statu Cr elevated but trending down to baseline range Continue to monitor (10) Hypothyroidism: Continue Synthroid (11) GERD (gastroesophageal reflux disease): Continue Omeprazole (12) Depression: Continue Sertraline, prn Xanax (13) Restless leg syndrome: Continue Ropinorole (14) DVT prophylaxis: already on Coumadin Supervising Physician Co-Signing Physician Notes Patient seen and examined with Dr. Combs. Agree with history, exam findings, assessment and plan of care as outlined by Dr. Combs. 73 year old female with multiple medical issues including COPD, SHELIA on CPAP, morbid obesity, HTN, DM, CKD, PE (AC with Coumadin) admitted with respiratory failure secondary to CAP and mild COPD exacerbation. Reports feeling better today. On exam, breathing comfortably, minimal air movement. No rales or crackles. Lower extremities with nonpitting edema and woody, venous stasis changes. 1. Respiratory failure secondary to COPD exacerbation. Initially requiring BiPAP and now off supplemental O2 at rest, but desatting with exertion. Duonebs q2h PRN, s/p solumedrol in ED, now on oral pred 40mg qd. Influenza negative. 2. CAP. No infiltrates on CXR. Leukocytosis (WBC 16?19?14) secondary to acute infectious process but remaining elevated secondary to steroid use. Ceftriaxone and doxy BID. Repeat CXR with small pleural effusion and central congestion. BCx NGTD. 3. DM. Novolin + regular insulin. Glycemic management consult. 4. PE, on chronic anticoagulation with Coumadin. INR 2.2 today. Home Coumadin 5mg SunMWF, 2.5mg TThSa. Daily INRs. 5. hx of HFpEF, mildly fluid overloaded on CXR. Received additional bumex dose, but still desatting ?still slightly overloaded. Added metolazone to bumex today. Follow I/Os and daily weights. Echo 07/2016 with EF 55-60%. Continue home labetalol. 6. CKD. Cr has been stable and tolerating diuresis well. 7. Hypokalemia. Replete. 8. elevated troponin. Normalized. No chest pain. Dispo: once able to get off supplemental O2. If not able, will need 2-step and home o2. Subjective Patient feels largely better, her oxygen is gradually being weaned down. Patient does report when she walks she tends to get more winded and oxygen saturation goes down. Overall, she reports improvement in sob , cough, . She denies fevers, chills Review of Systems Constitutional: no fever, no chills and no fatigue Respiratory: + cough; no dyspnea and no wheezing Cardiovascular: no chest pain, no palpitations and no edema Gastrointestinal: no abdominal pain, no nausea, no vomiting and no change in stools Results & Data Vital Signs (Past 12 Hours) Vital Signs Temp Pulse Pulse Resp BP BP Pulse Ox 09/25/18 15:36 36.5 C 62 18 154/75 H 92 09/25/18 14:54 62 09/25/18 12:39 36.3 C L 67 20 127/74 93 09/25/18 12:32 91 09/25/18 09:29 09/25/18 08:00 71 09/25/18 07:06 83 18 95 09/25/18 06:42 36.6 C 64 18 168/74 H 96 Pulse Ox Pulse Ox Pulse Ox 09/25/18 15:36 09/25/18 14:54 09/25/18 12:39 09/25/18 12:32 09/25/18 09:29 91 92 85 L 09/25/18 08:00 09/25/18 07:06 09/25/18 06:42 Resident Activity Tracking Resident Involvement: Resident Care Provided Care Provided: Adult Hospital Medicine (1) Diabetes Chronic kidney disease stage: stage 3 (moderate) Diabetes mellitus complication detail: with chronic kidney disease Diabetes mellitus complication status: with kidney complications Diabetes mellitus intermission coordinator insulin use: with intermission coordinator use Diabetes mellitus type: type 2 Qualified Code(s): E11.22 - Type 2 diabetes mellitus with diabetic chronic kidney disease; N18.3 - Chronic kidney disease, stage 3 (moderate); Z79.4 - half-way (current) use of insulin (2) CHF (congestive heart failure) Heart failure chronicity: chronic Heart failure type: diastolic Qualified Code(s): I50.32 - Chronic diastolic (congestive) heart failure (3) Depression Depression Type: unspecified Qualified Code(s): F32.9 - Major depressive disorder, single episode, unspecified (4) Hypothyroidism Hypothyroidism type: unspecified Qualified Code(s): E03.9 - Hypothyroidism, unspecified (5) Respiratory failure Chronicity: acute on chronic Respiratory failure complication: hypoxia Qualified Code(s): J96.21 - Acute and chronic respiratory failure with hypoxia (6) COPD (chronic obstructive pulmonary disease) COPD type: unspecified COPD Qualified Code(s): J44.9 - Chronic obstructive pulmonary disease, unspecified (7) GERD (gastroesophageal reflux disease) Esophagitis presence: esophagitis presence not specified Qualified Code(s): K21.9 - Gastro-esophageal reflux disease without esophagitis (8) PNA (pneumonia) Laterality: bilateral Lung location: lower lobe of lung Pneumonia type: due to unspecified organism Qualified Code(s): J18.1 - Lobar pneumonia, unspecified organism
[2018-09-25] MEDS: ALBUTEROL 0.083% NEBU SOLN 3 ML VIAL NEB SCH ×2 (19:32→19:47)
[2018-09-25] MEDS: ROPINIROLE HCL 0.25 MG TABLET PO SCH (20:06)
[2018-09-25] MEDS: ASPIRIN 81 MG ECTAB PO SCH (20:06)
[2018-09-25] MEDS: SIMVASTATIN 20 MG TAB PO SCH (20:07)
[2018-09-26] MEDS: DOXYCYCLINE HYCLATE 100 MG in DEXTROSE 5% 100 ML IV SCH ×2 (00:01→11:55)
[2018-09-26] MEDS: LEVOTHYROXINE SODIUM 200 MCG TABLET PO SCH (06:05)
--- NOTE | 2018-09-26 08:12 | Pharmacy Report ---
Pharmacy Glycemic Short Note 2 - Date of Service September 26, 2018 - Glycemic Short BSG Results (Last 24 hours): 09/25/18 09/25/18 09/25/18 11:45 11:48 12:04 POC Glucose 58 L* 60 L* 108 H 09/25/18 09/25/18 09/26/18 16:12 20:37 07:09 POC Glucose 137 H 199 H 115 H OUTPATIENT REGIMEN: * NPH 40 units BID w/ breakfast and dinner * Regular insulin 40 units w/ breakfast and dinner, 20 units w/ lunch * A1c 8.5% on 09/24/18 ASSESSMENT/PLAN: 09/26 * Ms. Cisneros received 161 units of insulin yesterday; 110 of which were basal * BSGs were stable over the past 24 hours except for a low BSG prior to lunch * Will continue with loosened CR that was changed yesterday. Will also continue with reduced AM dose of NPH; however, this may need to be increased tomorrow once we evaluate both reduced dose and loosened CR. * Will adjust PM dose of NPH to be given w/ dinner (how patient takes at home and is appropriate dosing). This will also help with higher BSG at HS. 09/25: * Patient received total 183 units of insulin yesterday; 110 of which were basal insulin. * Fasting BSG at goal but lunch BSG was low at 58 indicating the AM NPH dose of 70 units was slightly too much. Will decrease this to 60 units tomorrow as long as patient still on Prednisone 40 mg daily. * Further Novolog carb ratio was loosened to 4 with lunch today to loosen meal coverages for the rest of the day. 09/23: * Patient received 123 units of insulin yesterday, of which 65 units were basal insulin last evening * Fasting this AM elevated at 198 mg/dL - patient also starting prednisone 40 mg daily (recieved solumedrol last night) * Will start NPH for this morning as it will help with prednisone coverage (~0.4 units/kg) * Lunchtime BSG trending up with tighten carb coverage with steroids on board 09/22: * Ms. Cisneros is a 73 yo F known to the pharmacy glycemic service from previous admissions * Patient receives a home regimen using NPH and Regular Insulin that provides > 180 units per day * Patient now with respiratory failure/possible pneumonia receiving IV antibiotics as well as methylprednisolone 125 mg IV midday today and will continue Prednisone 40mg po daily * BSG 287 midday check and 373 mg/dl by dinnertime. * The patient is best controlled using a basal bolus regimen while admitted. PLAN: * Basal insulin: NPH 60 units qAM NPH 40 units - change to w/ dinner instead of HS * Correctional Insulin: no change Novolog Correction per scale ACHS Goal Range: Low 110 mg/dL - High 140 mg/dL Correction Factor: 10 mg/dL/unit * Prandial insulin: no change Per carb ratio of 1 unit per 4 grams CHO consumed PLAN FOR DISCHARGE: (from 09/25 note) * HbA1c = 8.5% on 09/24/18. Patient was on NPH 40 units BID with breakfast and supper + Regular insulin 40 units/sliding scale BID with breakfast and supper + Regular insulin 20 units/sliding scale with lunch. * Recommend discharge on home insulin regimen as long as patient is not reporting significant lows. She will need NPH dose slightly increased in the AM if she is discharged on Prednisone 40 mg QAM.
[2018-09-26] MEDS ORDERED: INSULIN HUMAN NPH SC SCH ×3 (08:15→16:30)
[2018-09-26] MEDS: PANTOprazole 40 MG TAB PO SCH (08:16)
[2018-09-26] MEDS: CHOLECALCIFEROL 1,000 UNITS TAB PO SCH (08:16)
[2018-09-26] MEDS: LABETALOL HCL 200 MG TAB PO SCH (08:16)
[2018-09-26] MEDS: CYANOCOBALAMIN 500 MCG TABLET (VITAMIN B-12) PO SCH (08:16)
[2018-09-26] MEDS: cefTRIAXone SODIUM 1,000 MG in DEXTROSE 5% 50 ML IV SCH (08:16)
[2018-09-26] MEDS: SERTRALINE HCL 100 MG TABLET PO SCH (08:16)
[2018-09-26] MEDS: POTASSIUM CHLORIDE 20 MEQ TABCR PO SCH (08:17)
[2018-09-26] MEDS: predniSONE 20 MG TAB PO SCH (08:17)
[2018-09-26] MEDS: BUMETANIDE 1 MG TAB PO SCH (08:17)
[2018-09-26] MEDS: INSULIN ASPART 100 UNITS/ML 3 ML PEN SC SCH ×3 (08:18→18:07)
[2018-09-26 09:12] LABS: Basophils # (auto) 0.02 K/uL (0-0.2); Basophils % (auto) 0.2 %; Eosinophils # (auto) 0.31 K/uL (0-0.5); Eosinophils % (auto) 2.9 %; Hematocrit (blood only) 36.9 % (37-47); Hemoglobin 11.9 g/dL (12.0-16.0); Immature Granulocytes # (auto) 0.05 K/uL (0.00-0.02); Immature Granulocytes % (auto) 0.5 %; Lymphocytes # (auto) 2.36 K/uL (1.2-3.4); Lymphocytes % (auto) 22.5 %; Mean Corpuscular Hgb Conc 32.2 g/dL (32-36); Mean Corpuscular Volume 81.1 fL (80-100); Mean Platelet Volume 10.6 fL (7.4-10.4); Monocytes # (auto) 0.87 K/uL (0.11-0.59); Monocytes % (auto) 8.3 %; Neutrophils % (auto) 65.6 %; Platelet Count 318 K/uL (130-400); RDW Coefficient of Variation 16.7 % (11.5-14.5); RDW Standard Deviation 50.1 fL (36.4-46.3); Red Blood Count 4.55 M/uL (4.2-5.4); White Blood Count 10.51 K/uL (4.8-10.8)
[2018-09-26 09:39] LABS: BUN Creatinine Ratio 21.7 (10-20); Calcium 9.9 mg/dl (8.5-10.1); Creatinine Clr Calc Pharmacy 35.9 ml/min; Est GFR (African American) 26.7; Est GFR (Non-African American) 23.1; Potassium 3.6 mmol/L (3.5-5.1)
--- NOTE | 2018-09-26 16:04 | Discharge Summary ---
Date of Service September 26, 2018 Admission HPI Per Admitting Provider Mrs. Cisneros is a pleasant 73yo C female with multiple medical comorbidities to include COPD, SHELIA on nocturnal CPAP, diastolic CHF, morbid obesity, HTN, HLP, DM, CKD, PE on Coumadin anticoagulation presenting with acute SOB. Patient states that this AM at 06:30 she woke with fevers/chills, headache, nausea, muscle aches as well as shortness of breath and substernal chest heaviness. She checked her pulse ox at that time and was 89% on room air with HR of 78. Patient denies weight gain, edema, orthopnea. She denies rhinorrhea/sore throat/congestion. She has a dry cough. Denies abdominal pain/vomiting/diarrhea or constipation. +sick contacts - great grandchild with recent RSV infection. No recent travel. No new medications. She reports compliance with home medications. Did not take AM meds yet. She had an appointment scheduled at the Coumadin clinic which she cancelled, she called her PCP and was instructed to come to the ER. On arrival to the ER patient was febrile at 38.3, tachycardic at 105 bpm, tachypneic at 30 bpm, hypertensive at 197/85 and saturating 89% on room air. She was placed on BiPAP, however, was unable to tolerate the mask. Patient with complaint now of headache as well as persistent body aches and shortness of breath. She states that the substernal chest discomfort resolved upon arrival to the ER. She has no additional complaints at this time. ER Course: Tylenol 1000mg, Albuterol 3mL neb, Bumex 2mg IV, Ceftriaxone 1gm IV, Doxycycline 100mg IV, Magnesium 1gm IV, Solumedrol 125mg IV Admission Exam Per Admitting Provider General: Overweight, elederly F - AAO x 3, no distress on BiPAP ENT: No erythema or exudates, no thrush Eyes: ISMAEL, EOMI Head and neck: Normocephalic, atruamatic - cannot assess JVD Chest/heart: Nontender, S1,2, RRR - faint Lungs: There is no air moveemnt at the bases BL - cannot clearly discern crackles or wheezing Abdomen: Nontender, nondistended, BS+ Neuro: AAO x 3, speech is clear, no unilateral weakness or loss of sensation, coordination intact Musculoskeletal: No joint inflammation, muscle tenderness, FROM Skin: No acute rashes - chronic LE ulcers Extremities: No clubbing, cyanosis - BL edema Principal Diagnosis Pneumonia, CHF, COPD exacerbation Discharge Exam GENERAL APPEARANCE: alert and cooperative, and appears to be in no acute distress. EYES: PERRL, EOMI. vision is grossly intact. CARDIAC: Normal S1 and S2. No S3, S4 or murmurs. Rhythm is regular LUNGS: CTA bilaterally, no wheezing or rhonchi notes ABDOMEN: Positive bowel sounds. Soft, nondistended, nontender. No guarding or rebound. No masses. LOWER EXTREMITY: no edema NEUROLOGICAL: CN II-XII grossly intact. moves extremities Discharge Data Allergies Allergy/AdvReac Type Severity Reaction Status Date / Time ibuprofen Allergy Intermediate HIVES Verified 09/22/18 12:49 lisinopril AdvReac Mild COUGH Verified 09/22/18 12:49 Consultations 09/22/18 12:32 ED Decision to Admit Stat Procedures Performed XR chest 1V portable HISTORY: 73 years-old Female Sepsis acute sepsis with shortness of breath COMPARISON: Chest radiograph 05/26/2018 TECHNIQUE: Portable AP view of the chest FINDINGS: Cardiac silhouette is enlarged, unchanged. Pulmonary vascular congestion with mild interstitial coarsening. Mild bibasilar densities are noted suggestive of atelectasis. Possible trace pleural effusions without pneumothorax. Degenerative changes of the shoulders and spine. IMPRESSION: Cardiomegaly with pulmonary vascular congestion and interstitial coarsening suggestive of pulmonary edema. The above report was generated using voice recognition software. It may contain grammatical, syntax or spelling errors. Electronically signed by: Aguilar Chávez M.D. 09/22/2018 11:37 AM XR chest 2V routine HISTORY: Pneumonia. Sepsis. Shortness of breath. COMPARISON: Chest 09/22/2018. FINDINGS: No pneumothorax. The heart remains enlarged. Diffuse interstitial thickening and perihilar vascular prominence persists. This favors mild pulmonary edema. Bibasilar linear densities remain unchanged. There are trace bilateral pleural effusions. IMPRESSION: No change in the cardiomegaly, trace bilateral pleural effusions, and diffuse interstitial thickening. This favors mild pulmonary edema. An atypical pneumonitis could also have a similar appearance. Electronically signed by: Mehrdad Salinas M.D. 09/22/2018 7:47 PM Hospital Course (1) Respiratory failure: 73 yo M with history of COPD no on home o2, CHF, CKD, history of PE on warfarin, hypothyroidism, GERD presenting with Fever, Acute Respiratory Failure requiring initial use of BiPAP. Received IV Bumex and Solumedrol in ER. eventually improved with NC in place. -secondary to COPD exacerbation in setting of Pneumonia vs CHF exacerbation - on admission placed on duoneb, prednisone 40 mg daily, ceftriaxone, doxycycline for suspected underlying pneumonia -Clinically improved during admission, transitioned off BIPAP , wheezing resolved - oxygen weaned off completely by discharge, did not meet criteria for oxygen per two step -Continued Prednisone 40 mg daily for total of 5 days,with one additional day following discharge -Continued home dose of Bumex daily, Added Metolazone dose 5 mg x 1 to improve diuresis for suspected volume overload - respiratory status was near baseline by discharge (2) PNA (pneumonia): fever priro to arrival fever resolved during stay, white blood cell trended down Continue to monitor clinically treated with Ceftriaxone, Doxycycline as above (3) COPD (chronic obstructive pulmonary disease): as above (4) Diabetes: Patient with DM on Novolin and regular insulin at home. Last HgAIC=8 on 06/16/18. -Glycemic management consulted - sent home on original insulin regimen (5) Anemia: secondary to chronic disease normocytic normochromic H/H stable during admission (6) Chronic anticoagulation: due to h/o PE currently on alternating 2.5 mg, and 5 mg doses of warfarin monitored daily INR , no adjustment needed (7) SHELIA on CPAP: CPAP at night (8) Vitamin D deficiency: Vit supplementation (9) CHF (congestive heart failure): reassessed volume status daily, possible contributor to respiratory status added single dose of metalozone to bumex which resulted in improved diuresis and improved respiratory status Cr elevated but trended down to baseline range (10) Hypothyroidism: Continue Synthroid (11) GERD (gastroesophageal reflux disease): Continue Omeprazole (12) Depression: Continue Sertraline, prn Xanax (13) Restless leg syndrome: Continue Ropinorole (14) DVT prophylaxis: already on Coumadin Total Time Total Time Spent Total Time Spent (In Minutes): 30 Discharge Plan Discharge Items Patient Disposition: Home - Home Health Services Reason For Visit: RESPIRATORY DISTRESS Discharge Diagnosis: COPD, CHF PNA Condition: Good Discharge Goals: Decrease discomfort, Improve disease control, Improve function, Increase independence, Learn about illness and Therapeutic intervention Non-emergency contact: Primary Care Provider Call non-emergency contact if: you have any medication questions, your symptoms worsen and your temperature is above 100.5 Follow-up/Referrals: Jorge Barney MD [Primary Care Provider] - 10/01/18 9:30 am (Please, follow up at Dr. Jean Baptiste's office with her seed analysis laboratory assistant, Alanna Schwartz PA-C on SaturdayOctober 01 at 9:30 am. *If you need to change this appointment, call the office at [phone].) Diet: Regular Addtl Provider Instructions: You arrived in the hospital with pneumonia and shortness of breath likely involving exacerbation of your underlying COPD, Heart failure. Following treatment with antibiotics, steroid therapy and diuretics, your symptoms improved. You will be prescribed an additional dose of prednisone to be taken tomorrow. Additionally, you will be sent on two oral antibiotics Doxycycline, Cefuroxime which you will start tomorrow. Continue to you use nebulizer treatment as needed at home for wheezing, shortness of breath. Please follow up with your Primary care provider within a week of discharge. Call your doctor if: Your symptoms are the same or get worse 48 hours after you start antibiotics. Your fever is not below 99F (37.2C) 48 hours after you start antibiotics. You have a fever higher than 101F (38.3C). You cannot eat, or you have loss of appetite, nausea, or are vomiting. You have questions or concerns about your condition or care. You are confused, dizzy, or feel faint. Your arm or leg feels warm, tender, and painful. It may look swollen and red. You cough up blood. You have increased shortness of breath. You need more medicine than usual to control your symptoms. You are coughing or wheezing more than usual. You are coughing up more mucus, or it has a new color or odor. You gain more than 3 pounds in a week. You have a fever, a runny or stuffy nose, and a sore throat, or other cold or flu symptoms. Your skin, lips, or nails start to turn blue. You have swelling in your legs or ankles. You are very tired or weak for more than a day. You notice changes in your mood, or changes in your ability to think or concentrate. You have questions or concerns about your condition or care. Prescriptions: New prednisone 20 mg tablet 40 mg PO DAILY 1 Days Qty: 2 RF: 0 doxycycline hyclate 100 mg capsule 100 mg PO BID 60 Days Qty: 120 RF: 0 cefuroxime axetil 500 mg tablet 500 mg PO BID 3 Days Qty: 6 RF: 0 Continued warfarin 5 mg tablet 5 mg PO UD RF: 0 mometasone-formoterol [Dulera] 200-5 mcg/actuation HFA aerosol inhaler 2 puffs INH BID RF: 0 levalbuterol HCl [Xopenex] 0.63 mg/3 mL solution for nebulization 0.63 mg INH Q6H PRN (Reason: Shortness Of Breath) RF: 0 ropinirole 0.5 mg tablet 0.5 mg PO HS RF: 0 potassium chloride [Klor-Con M20] 20 mEq tablet,ER particles/crystals 20 meq PO DAILY RF: 0 acetaminophen [Tylenol 8 Hour] 650 mg tablet extended release 650 mg PO DAILY PRN (Reason: Pain) RF: 0 labetalol 200 mg Tablet 800 mg PO BID Qty: 0 RF: 0 bumetanide 2 mg Tablet 2 mg PO BID Qty: 0 RF: 0 cyanocobalamin (vitamin B-12) [Vitamin B-12] 1,000 mcg Tablet 1,000 mcg PO QAM Qty: 0 RF: 0 aspirin [Aspirin Low Dose] 81 mg Tablet,Delayed Release (Dr/Ec) 81 mg PO HS Qty: 0 RF: 0 simvastatin 20 mg Tablet 20 mg PO PM Qty: 0 RF: 0 Novolin R Regular U-100 Insuln 100 unit/mL Solution 40 units SC BIDM Qty: 0 RF: 0 levothyroxine [Synthroid] 200 mcg Tablet 200 mcg PO QAM Qty: 0 RF: 0 cholecalciferol (vitamin D3) [Vitamin D3] 1,000 unit Tablet 3,000 unit PO QAM Qty: 0 RF: 0 diclofenac sodium [Voltaren] 1 % Gel 1 applic Topical DIRECTED PRN (Reason: SHOULDERS) Qty: 0 RF: 0 insulin NPH isoph U-100 human [Novolin N NPH U-100 Insulin] 100 unit/mL suspension 40 units SC BIDM Qty: 0 RF: 0 sertraline [Zoloft] 50 mg tablet 100 mg PO QAM Qty: 0 RF: 0 Novolin R Regular U-100 Insuln 100 unit/mL Solution 20 unit SUBCUT QDL RF: 0 melatonin 10 mg Tablet 10 mg PO HS PRN (Reason: Sleep) RF: 0 warfarin 2.5 mg tablet 2.5 mg PO UD RF: 0 No Action levothyroxine [Synthroid] 75 mcg Tablet 75 mcg PO DIRECTED Qty: 0 RF: 0 omeprazole 20 mg Capsule,Delayed Release(Dr/Ec) 20 mg PO QAM Qty: 0 RF: 0 Stand-Alone Forms: [employer] [facility] [employer] [facility]Other Patient Handouts: Cefuroxime Axetil Oral tablet, Doxycycline Monohydrate Oral tablet, Prednisone Oral tablet, Pneumonia Discharge Orders: Discharge Order (Routine); Ordered 09/26/18 Ordered By: Bola Rosado Admission Data Admit Date/Time: 09/22/18 13:35 Attending Provider: Bola Rosado Admit Provider: Cris Morris Primary Care Provider: Jorge Barney V. Other Providers: Cris Morris ; Home,Nursing Agency Service: Telemetry Supervising Physician Co-Signing Physician Notes Attending attestation Pt seen and examined in concert with Dr. Combs. In agreement with the documented findings as noted in the resident documentation with any exceptions or additions as noted here. Resting comfortably in chair with improving cough and resolving SOB. Lungs are CTAB without appreciable wheeze. CAP w/ COPD exacerbation - tolerating RA well at rest and 93% saturation with ambulation. Has O2 at home and counseled to use as needed. Complete course of prednisone burst. Transition to PO doxycycline and cefuroxime. Resume home inhaler regimen. Fluid overload in the setting of CHF - improved on metolazone and Bumex and tolerating well Type 2 DM, uncontrolled - resume home insulin regimen and follow with primary care for monitoring and management Else see resident documentation as noted. Resident Activity Tracking Resident Involvement: Resident Care Provided Care Provided: Adult Hospital Medicine
[2018-09-26] MEDS: WARFARIN SOD 5 MG TAB PO SCH (18:06)
--- OUTSIDE RECORDS SUMMARY | 2018-09-29 14:58 | External Medical Summary | Continuity of Care Document ---
:1945 Author Name Lashawn Woodard, Provider Address Unavailable Unavailable , Care Team Providers Name Role Phone Raegan Mendy PAUL Unavailable [email or web address] Jean Baptiste M.D. Unavailable [email or web address] Ira MEDEROS Unavailable [email or web address] Efren MEDEROS Unavailable [email or web address] KAREN CAIN M.D., V Unavailable Unavailab le Unavailable Unavailable Unavailable Problems Nocturia (788.43) (R35.1) Vulvar cyst (624.8) (N90.7) Urinary incontinence (788.30) (R32) Primary osteoarthritis of left knee (715.16) (M17.12) Arthritis (716.90) (M19.90) History of osteoporosis (V13.59) (Z87.39) Status: Resolved Left bundle-branch block (426.3) (I44.7) Pain in joint of right shoulder (719.41) (M25.511) Osteopenia (733.90) (M85.80) Hot flashes (782.62) (R23.2) Venous insufficiency (chronic) (peripheral) (459.81) (I87.2) Numbness (782.0) (R20.0) Nonproliferative diabetic retinopathy (250.50) (E11.3299) Carpal tunnel syndrome of right wrist (354.0) (G56.01) GERD without esophagitis (530.81) (K21.9) Bleeding hemorrhoids (455.8) (K64.9) Obstructive sleep apnea (327.23) (G47.33) Mild mitral stenosis (394.0) (I05.0) Colon cancer screening (V76.51) (Z12.11) History of shortness of breath (V13.89) (Z87.898) Pulmonary embolism, bilateral (415.19) (I26.99) Sleep apnea (780.57) (G47.30) Hyperlipidemia (272.4) (E78.5) Mitral regurgitation (424.0) (I34.0) History of ileus (V12.79) (Z87.19) Flu vaccine need (V04.81) (Z23) Restless legs syndrome (333.94) (G25.81) Breast cancer screening by mammogram (V76.12) (Z12.31) Anxiety (300.00) (F41.9) Candidal intertrigo (112.3) (B37.2) Ascending aorta dilation (447.71) (I77.810) Gait disturbance (781.2) (R26.9) Encounter for routine pelvic examination (V72.31) (Z01.419) Swelling of lower extremity (729.81) (M79.89) Hemorrhoids, unspecified hemorrhoid type (455.6) (K64.9) Hypokalemia (276.8) (E87.6) Secondary hyperparathyroidism (588.81) (N25.81) Lymphedema (457.1) (I89.0) Vitamin D deficiency (268.9) (E55.9) Stage III chronic kidney disease (585.3) (N18.3) CHF NYHA class III (428.0) (I50.9) Depression (311) (F32.9) Diabetic nephropathy (250.40) (E11.21) Hypertension (401.9) (I10) Hypothyroidism (244.9) (E03.9) Morbid obesity (278.01) (E66.01) Uncontrolled type 2 diabetes mellitus wi th kidney complication, with long-term current use of insulin (250.42) (E11.29) Chronic obstructive pulmonary disease (496) (J44.9) Allergies and Adverse Reactions Lisinopril TABS (Allergy) Reaction: Coug h Motrin TABS (Allergy) Reaction: Hives Pramipexole Dihydrochloride TABS (Allergy) zolpidem (Allergy) Reaction: Drowsiness Medications Simvastatin 20 MG Oral Tablet; TAKE 1 TABLET Bedtime Vance Astorga Start: 28-Oct-2013 Quantity: 90 Refills: 1 Levothyroxine Sodium 75 MCG Oral Tablet; TAKE 1 TABLET BY MOUTH ONCE DAILY FOR 5 DAYS/WEEK - HOLD FOR 2 DAYS/WEEK. Vance Jean Baptiste Start: 29-Sep-2018 Quantity: 42 Refills: 5 Vitamin B-12 1000 MCG Oral Tablet; TAKE 1 TABLET DAILY DI RECTED. Refills: 0 Vitamin D 1000 UNIT Oral Tablet; TAKE 3000 UNIT Daily Refills: 0 OneTouch Ultra Blue In Vitro Strip; USE ONE STRIP TO CHECK GLUCOSE 4 TIMES DAILY BEVERLY Carlin Start: 23-Mar-2011 Quantity: 4 100 Strip Box Refills: 3 Aspirin Low Dose 81 MG TABS; TAKE 1 TABLET DAILY. Vance Beck Start: 28-Jul-2012 Refills: 3 NovoLIN N ReliOn 100 UNIT/ML Subcutaneou s Suspension; INJECT 40 UNITS SUBCUTANEOUSLY AT BREAKFAST, 20 units with lunch , AND 40 UNITS AT dinner. Total daily dose: up to 125 units BEVERLY Carlin Start: 15-Dec-2013 Quantity: 4 10 ML Vial Refills: 5 Omeprazole 20 MG Oral Capsule Delayed Re lease; TAKE 1 CAPSULE DAILY EVERY MORNING BEFORE BREAKFAST. Vance Jean Baptiste Start: 26-Mar-2014 Quantity: 90 Refills: 3 Oxygen; 3 L/mins- Overnight 2 liters during day if nee ded with activity Vance Jean Baptiste Start: 09-Sep-2014 Refills: 0 Labetalol HCl - 200 MG Oral Tablet; TAKE 4 TABLETS BY MOUTH TWICE DAILY Vance Jean Baptiste Start: 29-Sep-2018 Quantity: 720 Refills: 1 Bumetanide 2 MG Oral Tablet; TAKE 1 TABLET TWICE DAILY . Vance Jean Baptiste Start: 05-Sep-2016 Quantity: 60 Refills: 3 Xopenex 0.63 MG/3ML Inhalation Nebulizat ion Solution; q 6 hours while awake and [id number] PRN Vance Jean Baptiste Start: 05-Sep-2016 Refills: 0 Vortex Holding Chamber/Mask Device; USE DIRECTED. GATITO Roth Start: 19-Aug-2017 Quantity: 1 Refills: 0 BD Insulin Syr Ultrafine II 31G X 5/16" 1 ML; Uses to inject insulin 6 times daily. Raegan, BEVERLY Mckeon Start: 14-Oct-2017 Quantity: 2 100 Unit Box Refills: 11 Ventolin HFA 108 (90 Base) MCG/ACT Inhal ation Aerosol Solution; INHALE 2 PUFFS EVERY 4 HOURS NEEDED GATITO Roth Start: 28-Jan-2017 Quantity: 1 18 GM Inhaler Refills: 5 Levothyroxine Sodium 200 MCG Oral Tablet ; TAKE 1 TABLET DAILY ALONG WITH 75MCG TABLET TDD:275 Vance Jean Baptiste Start: 06-Sep-2016 Quantity: 90 Refills: 2 Diclofenac Sodium 1 % Transdermal Gel; A PPLY SPARINGLY TO AFFECTED AREA- right shoulder twice a day GATITO Schwartz Start: 30-Oct-2016 Quantity: 1 100 GM Tube Refills: 3 Dulera 200-5 MCG/ACT Inhalation Aerosol; INHALE 2 PUFFS TWICE DAILY. RINSE MOUTH AFTER USE. GATITO Roth Start: 21-Oct-2017 Quantity: 1 13 GM Inhaler Refills: 3 Nystatin [id number] UNIT/GM External Powder; APPLY TOPICALLY TO AFFECTED AREA 2 TIMES DAILY to affected area GATITO Schwartz Start: 28-Jan-2018 Quantity: 1 60 GM Bottle Refills: 1 Docusate Sodium 100 MG Oral Capsule; TAKE 1 CAPSULE TWICE DA DIANE. Start: 13-Mar-2018 Refills: 0 Melatonin 10 MG Oral Capsule Start: Refills: 0 Warfarin Sodium 5 MG Oral Tablet; USE DIRECTED Vance Beck Start: 18-Mar-2017 Quantity: 90 Refills: 3 Potassium Chloride ER 20 MEQ Oral Tablet Extended Rele ase; Take 1 tablet daily Vance Jean Baptiste Start: 21-Apr-2018 Quantity: 90 Refills: 3 Sertraline HCl - 100 MG Oral Tablet; TAKE 1 TABLET NILA LY. Vance Jean Baptiste Start: 17-Sep-2016 Quantity: 90 Refills: 1 Warfarin Sodium 1 MG Oral Tablet; TAKE O NE TABLET BY MOUTH ONCE DAILY DIRECTED Vance Jean Baptiste Start: 26-May-2018 Quantity: 30 Refills: 5 NovoLIN R ReliOn 100 UNIT/ML Injection S olution; Inject 65 untis plus sliding scale at breakfast, 15 units with lunch, and 65 units plus sliding scale with supper, and 90 units at bedtime Raegan, BEVERLY Mckeon Start: 21-Apr-2018 Quantity: 8 10 ML Vial Refills: 5 OneTouch Verio In Vitro Strip; Test 4 times daily Vance Beck Start: 14-Aug-2018 Quantity: 4 100 Strip Box Refills: 3 OneTouch Delica Lancets Fine; testing four times per d ay.DX: E11.29 Vance Del Rio Start: 14-Aug-2018 Quantity: 4 100 Unit Box Refills: 2 OneTouch UltraSoft Lancets; Test 4 times daily RaeganBEVERLY Start: 20-Aug-2018 Quantity: 4 100 Unit Box Refills: 3 Warfarin Sodium 2 MG Oral Tablet; TAKE O NE TABLET BY MOUTH ONCE DAILY DIRECTED Vance Jean Baptiste Start: 17-Sep-2018 Quantity: 60 Refills: 1 Doxycycline Hyclate 100 MG Oral Tablet; TAKE 1 TABLET EVERY 12 HOURS DAILY. Start: 29-Sep-2018 Quantity: 120 Refills: 0 Cefuroxime Axetil 500 MG Oral Tablet; Take 1 tablet twice da diane Start: 29-Sep-2018 Quantity: 6 Refills: 0 Procedures Basic Metabolic Panel Date: 29-Sep-2018 Hemoglobin A1C Date: 01-Sep-2018 X-ray Chest, PA and Lateral Routine Date: 29-Sep-2018 History of Hysterectomy Status: Complete d History of Cholecystectomy Status: Compl eted History of Cataract Surgery Status: Comp leted History of Corneal LASIK Left Status: Co mpleted 03-Jun-2010 0:00 History of Total Abdominal Status: Compl eted Hysterectomy With Removal Of Both Ovaries Immunizations Pneumococcal polysaccharide vaccine, 23 valent On: 2008 Fluzone INJ On: 20-Apr-2011 13:14 Lot #: [id number], SANOFI PASTEUR Influenza On: 11-Mar-2012 10:16 Lot #: [id number], SANOFI PASTEUR Influenza On: 02-Mar-2013 12:43 Lot #: [id number], SANOFI PASTEUR Fluzone High-Dose Intramuscular Suspension On: 08-Mar-2014 13 :59 Lot #: [id number], SANOFI PASTEUR Fluzone High-Dose Intramuscular Suspension On: 17-Mar-2015 1 1:15 Lot #: [id number], SANOFI PASTEUR Influenza On: 05-Mar-2016 12:02 Lot #: [id number], SANOFI PASTEUR Fluzone High-Dose Intramuscular Suspension On: 11-Mar-2017 11 :20 Lot #: [id number], SANOFI PASTEUR Tdap (Adacel) On: Aug-2017 Lot #: [id number], SANOFI PASTEUR Fluzone High-Dose Intramuscular Suspension On: 14-Mar-2018 1 2:25 Lot #: [id number], SANOFI PASTEUR Prevnar 13 Intramuscular Suspension On: 23-Apr-2018 14:00 Lot #: [id number], PFIZER [place]. Family History Mother Family history of Lung Cancer (V16.1) Status: Active Father Family history of Esophageal Cancer (V16.0) Status: Active Unknown Family Member Family history of Colon Cancer (V16.0) Status: Active C omments: Family History Family history of Hypertension (V17.49) Status: Active Comments: Family History Family history of Diabetes Mellitus (V18.0) Status: Active Comments: Family History Plan of Treatment Planned Encounters Appointment; Raegan, BEVERLY Brooke Start: 09-Mar-2019 10:30 Re quest Planned Observations Planned Goals not documented Results X-Ray Chest 1 View Portable (Pending) Laboratory: [facility] [address] [facility] [place] 22-Sep-2018 11:35 X-Ray Chest 1 VW Portable (CXR1P) [facility], [place] [phone] XRay Report Josefina ent: ISAMAR,FRAN E Admit Date: 09/22/18 MR#: [id number] Address1: [address] [facility] [facility] Acct ID:[id number] Address2: Jose e: 1945 [facility] Zip: [place] [address] Age: 73 Location: ED Sex: F Room/Bed: Att P hy: Diagnosis: SOB,ACHY ALL OVER,NEAUS EA Marj Phy: RV. Jean Baptiste MD Servi ce Date: 09/22/18 [facility] Phy: Interpreting Phy: Francisco Perdomo her Admit Phy: Ordering Phy: Awilda Yip M.D. cc: XR chest 1V portable HISTORY: 73 years-old Female Sepsis acute sepsis wit h shortness of breath COMPARISON: [facility] radiograph 05/26/2018 TECHNIQUE: Portable AP view of the chest FINDI NGS: Cardiac silhouette is enlarged, unchanged. Pulmonary vascular congestion with mild interstitial coarsening. Mild bibasilar densities are noted suggestive of atelectasis. Possible trace pleural effusions without pneumothorax. Degenera tive changes of the shoulders and spine. IMPRESSION: Cardiomegaly with pulmona ry vascular congestion and interstitial coarsening suggestive of pulmonaryedema. The above report was generated us [employer] voice recognition software. It may conta in grammatical, syntaxor spelling errors. Electronically signed by: Aguilar Chávez M.D. 09/22/2018 11:37 AM Dictated: 09/22/18 1135 Transcribed: 09/22/18 1135 X-ray Chest, PA and Lateral Routine Laboratory: [facility] 1800 (Pending) Lynda Beltrán arabella Widener [place] 22-Sep-2018 19:45 CHEST 2 VIEWS ROUTINE [facility], [place] [phone] XR ay Report Patient: FRAN PENN Admit Date: 09/22/18 MR#: [id number] Address1: [address] [place] [address] Acct ID:[id number] Address2: Date: 1945 [facility] Zip: [place] [address] Age: 73 Location: 2S Sex: F Room/Bed: S242-1 Att Phy: Cris Morris D.O. Diagnosis : RESPIRATORY DISTRESS Pr i Phy: RV. Jean Baptiste MD Servi ce Date: 09/22/18 [facility] Phy: Interpreting Phy: Mehrdad pedraza MD Admit Phy: Cris Morris D.O. Ordering Phy: Cris Morris D.O. cc: XR chest 2 V routine HISTORY: Pneumonia. Sepsis. Shortness of breath. COMPARISON: Chest 09/22/2018. FINDIN GS: No pneumothorax. The heart remains enlar ged. Diffuse interstitial thickening and perihilar vascular prominence persists. This favors mild pulmonary edema. Bibasilar linear densitiesremain unchanged. There are trace bilateral pleural effusions. IMPRESSION: No change in the cardiomeg noble, trace bilateral pleural effusions, and diffuse interstitial thickening. This fa vors mild pulmonary edema. An atypical pneumonitis could also have a similar appearance. Electronically si gned by: Mehrdad Salinas M.D. 09/22/2018 7:47 PM Dictated: 09/22/181944 Transcribed: 09/22/181944 Vital Signs 29-Sep-2018 13:45 Systolic 136 mm[Hg] Comments: Location: LUE; Position: Sitting Diastolic 88 mm[Hg] Comments: Location: LUE; Position: Sitting Weight 309.375 lb Height 64 in BSA Calculated 2.35 m2 BMI Calculated 53.1 kg/m2 Respiration 24 /min Heart Rate 69 /min O2 Saturation 93 % Comments: Source: 01-Sep-2018 10:43 Systolic 152 mm[Hg] Diastolic 78 mm[Hg] Weight 322 lb BSA Calculated 2.39 m2 BMI Calculated 55.27 kg/m2 Heart Rate 80 /min 01-Sep-2018 9:02 other 71 Comments: PAID Encounters Appointment; Carmen Roth PA-C 29-Sep-2018 13:45 Encounter Diagnosis: Problem not documented Appointment; RaeganMendy CRNP 01-Sep-2018 10:30 Encounter Diagnosis: Problem not documented Appointment; OBGYN SC1, Ultrasound 30-Jun-2018 10:30 Encounter Diagnosis: Problem not documented Appointment; Javy Verdugo M.D. 23-Jun-2018 9:45 Encounter Diagnosis: Problem not documented Appointment; Jorge Jean Baptiste M.D. 11:40 Encounter Diagnosis: Problem not documented Appointment; Carmen Vasquez M.D. 16-Jun-2018 10:00 Encounter Diagnosis: Problem not documented Appointment; Vascular, Studies SC1 19-May-2018 10:45 Encounter Diagnosis: Problem not documented Appointment; Vascular, Studies SC1 19-May-2018 8:45 Encounter Diagnosis: Problem not documented Appointment; Jorge Jean Baptiste M.D. 8 13:20 Encounter Diagnosis: Problem not documented Appointment; Mendy Carlin CRNP 21-Apr-2018 16:30 Encounter Diagnosis: Problem not documented Appointment; Javy Verdugo M.D. 21-Apr-2018 15:00 Encounter Diagnosis: Problem not documented Appointment; Carmen Roth PA-C 21-Apr-2018 9:30 Encounter Diagnosis: Problem not documented Appointment; Alanna Schwartz PA-C 27-Mar-2018 13:15 Encounter Diagnosis: Problem not documented Appointment; Jorge Jean Baptiste M.D. 8 11:40 Encounter Diagnosis: Problem not documented Appointment; Samantha Márquez PA-C 12-Feb-2018 11:00 Encounter Diagnosis: Problem not documented Appointment; Stress, Echocardiogram 1 12-Feb-2018 11:00 Encounter Diagnosis: Problem not documented Appointment; Alanna Schwartz PA-C 28-Jan-2018 13:00 Encounter Diagnosis: Problem not documented Appointment; Reema Cantu M.D. 27-Jan-2018 13:45 Encounter Diagnosis: Problem not documented Appointment; Carmen Roth PA-C 20-Jan-2018 10:00 Encounter Diagnosis: Problem not documented Appointment; Javy Verdugo M.D. 27-Dec-2017 14:45 Encounter Diagnosis: Problem not documented Appointment; Mendy Carlin CRNP 09-Dec-2017 18:30 Encounter Diagnosis: Problem not documented Appointment; Jorge Jean Baptiste M.D. 05-Dec-2017 15:40 Encounter Diagnosis: Problem not documented Appointment; Abundio Phillips M.D. 14-Nov-2017 16:40 Encounter Diagnosis: Problem not documented Appointment; Jorge Jean Baptiste M.D. 8 10:20 Encounter Diagnosis: Problem not documented Appointment; Samantha Márquez PA-C 07-Oct-2017 14:00 Encounter Diagnosis: Problem not documented Appointment; Genet Montoya R.D. 24-Sep-2017 14:00 Encounter Diagnosis: Problem not documented Appointment; Samantha Márquez PA-C 20-Sep-2017 14:45 Encounter Diagnosis: Problem not documented Appointment; Carmen Roth PA-C 20-Sep-2017 9:15 Encounter Diagnosis: Problem not documented Appointment; Mendy Carlin CRNP 09-Sep-2017 14:30 Encounter Diagnosis: Problem not documented Appointment; Carmen Roth PA-C 19-Aug-2017 10:00 Encounter Diagnosis: Problem not documented Appointment; Abundio Phillips M.D. 05-Aug-2017 16:00 Encounter Diagnosis: Problem not documented Appointment; Pulmonary, Funct Testing 05-Aug-2017 13:00 Encounter Diagnosis: Problem not documented Appointment; Javy Verdugo M.D. 24-Jun-2017 14:30 Encounter Diagnosis: Problem not documented Appointment; Carmen Roth PA-C 18-Jun-2017 14:45 Encounter Diagnosis: Problem not documented Appointment; Mendy Carlin CRNP 17-Jun-2017 10:00 Encounter Diagnosis: Problem not documented Appointment; Javy Verdugo M.D. 20-May-2017 11:30 Encounter Diagnosis: Problem not documented Appointment; Antonio Wharton M.D. 06-May-2017 15:30 Encounter Diagnosis: Problem not documented Appointment; Jorge Jean Bpatiste M.D. 12:40 Encounter Diagnosis: Problem not documented Appointment; Samantha Márquez PA-C 11-Mar-2017 10:15 Encounter Diagnosis: Problem not documented Appointment; Carmen Roth PA-C 28-Jan-2017 9:00 Encounter Diagnosis: Problem not documented Appointment; Mendy Carlin CRNP 01-Jan-2017 15:30 Encounter Diagnosis: Problem not documented Appointment; Lynda Pulido III, M.D. 21-Dec-2016 11:00 Encounter Diagnosis: Problem not documented Appointment; Jorge Jean Baptiste M.D. 07-Dec-2016 12:40 Encounter Diagnosis: Problem not documented Appointment; Javy Verdugo M.D. 29-Nov-2016 9:45 Encounter Diagnosis: Problem not documented Appointment; Antonio Wharton M.D. 26-Nov-2016 15:00 Encounter Diagnosis: Problem not documented Appointment; Moraima Dennis R.D. 19-Nov-2016 10:30 Encounter Diagnosis: Problem not documented Appointment; Jorge Jean Baptiste M.D. 9:00 Encounter Diagnosis: Problem not documented Appointment; Javy Verdugo M.D. 17-Oct-2016 9:45 Encounter Diagnosis: Problem not documented Appointment; Mendy Carlin CRNP 09-Mar-2019 10:30 Encounter Diagnosis: Problem not documented
== END 2018-09-26 19:00 | disposition home health service (06) | DRG 193 ==
LOC: ED 10:33 → SUATTDRO 13:35 → 2S 13:35

== ENCOUNTER 2019-02-15 10:28 | Inpatient (IN) ==
[2019-02-15] MEDS ORDERED: ALBUT/IPRATROP 3MG/0.5MG NEB 3 ML VIAL NEB ONE (11:13)
[2019-02-15 11:25] LABS: Basophils # (auto) 0.02 K/uL (0-0.2); Basophils % (auto) 0.1 %; Eosinophils # (auto) 0.34 K/uL (0-0.5); Eosinophils % (auto) 2.3 %; Hematocrit (blood only) 37.3 % (37-47); Immature Granulocytes # (auto) 0.02 K/uL (0.00-0.02); Immature Granulocytes % (auto) 0.1 %; Lymphocytes # (auto) 0.75 K/uL (1.2-3.4); Mean Corpuscular Hemoglobin 27.2 pg (25-34); Mean Corpuscular Hgb Conc 32.2 g/dL (32-36); Mean Corpuscular Volume 84.6 fL (80-100); Mean Platelet Volume 10.3 fL (7.4-10.4); Monocytes # (auto) 0.81 K/uL (0.11-0.59); Monocytes % (auto) 5.4 %; Neutrophils # (auto) 13.13 K/uL (1.4-6.5); Neutrophils % (auto) 87.1 %; Platelet Count 279 K/uL (130-400); RDW Coefficient of Variation 16.5 % (11.5-14.5); RDW Standard Deviation 51.1 fL (36.4-46.3); Red Blood Count 4.41 M/uL (4.2-5.4); White Blood Count 15.07 K/uL (4.8-10.8)
[2019-02-15 11:36] LABS: INR 1.9 (0.9-1.1); Partial Thromboplastin Ratio 1.6; Partial Thromboplastin Time 43.5 Seconds (21.0-31.0); Prothrombin Time 18.5 Seconds (9.0-12.0)
[2019-02-15] MEDS ORDERED: ACETAMINOPHEN 325 MG TAB PO STA (11:42)
--- NOTE | 2019-02-15 11:49 | XRay Report ---
XR chest 1V portable CLINICAL HISTORY: Sepsis COMPARISON STUDY: Chest radiograph January 12, 2019. FINDINGS: Moderate cardiomegaly is noted. There is no pneumothorax or pleural effusion. There is pulm onary vascular congestion with mild interstitial pulmonary edema. This has increased when compared to exam of January 12, 2019. No consolidation to suggest pneumonia is present. IMPRESSION: 1. Mild interstitial pulmonary edema. 2. Stable cardiomegaly. Electronically signed by: Turner Pollock M.D. 02/15/2019 11:47 AM
[2019-02-15] MEDS ORDERED: methylPREDNISolone 125 MG/2 ML VIAL IV STA (12:03)
[2019-02-15 12:06] LABS: Alanine Aminotransferase 21 U/L (12-78); Albumin Level 3.7 gm/dl (3.4-5.0); Aspartate Aminotransferase 12 U/L (15-37); BUN Creatinine Ratio 21.3 (10-20); Blood Urea Nitrogen 38 mg/dl (7-18); Calcium 9.7 mg/dl (8.5-10.1); Carbon Dioxide 28 mmol/L (21-32); Chloride 108 mmol/L (98-107); Creatinine Clr Calc Pharmacy 42.2 ml/min; Est GFR (Non-African American) 27.6; Glucose 148 mg/dl (70-99); Potassium 3.7 mmol/L (3.5-5.1); Sodium 144 mmol/L (136-145)
[2019-02-15 12:10] LABS: Albumin Globulin Ratio 0.9 (0.9-2); Alkaline Phosphatase 89 U/L (45-117); Bilirubin,Total 0.7 mg/dl (0.2-1); Globulin 4.4 gm/dl (2.5-4.0); Total Protein 8.1 gm/dl (6.4-8.2); Troponin I < 0.015 ng/ml (0-0.045)
[2019-02-15] MEDS ORDERED: BUMETANIDE SOLN 1 MG/4 ML VIAL IV ONE (12:11)
[2019-02-15] MEDS ORDERED: BUMETANIDE 1 MG in SYRINGE 0 ML IV SCH (12:15)
--- NOTE | 2019-02-15 13:41 | History & Physical Report ---
Date of Service February 15, 2019 Assessment & Plan (1) Hypoxia: Likely COPD in the setting of mild CHF, requiring O2 currently Nebs, steroids 20mg BID to avoid hyperglycemia Additional bumex in the ED, monitor BNP noted CXR neg for PNA Therapeutic on coumadin making PE less likely, will hold on CT for now (2) Chest pain: Likely related to COPD exacerbation Trop neg x1, serials pending EKG pending Monitor Aspirin 81mg at baseline for prevention only, denies hx of CAD (3) Restless leg syndrome: continue home meds Likely worse with increased swelling (4) Stage III chronic kidney disease: Baseline cr is 1.7, at 1.8 on admission Monitor (5) Hyperlipidemia: continue home meds (6) Hypertension: continue home meds (7) Depression: continue home meds (8) Diabetic nephropathy: continue home meds (9) Obstructive sleep apnea: Home CPAP with O2 Daughter to bring in (10) 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, with long- term current use of insulin: Holding home fast acting insulin SSI PRN Continue with basaglar A1c pending (11) GERD (gastroesophageal reflux disease): continue home meds (12) Hypokalemia: continue home meds Recent increase to BID dosing (13) Hypothyroidism: continue home meds Takes 275mcg every day except 200mcg on W/Sa (14) Bilateral pulmonary embolism: Remote event Ongoing coumadin INR 1.9, states 2.2 a week ago Makes recurrent PE less likely continue home coumadin use (15) DVT prophylaxis: Therapeutic on coumadin History of Present Illness Primary Care Provider: Jorge Barney MD 73 y/o F c/o SOB. Pt states this started earlier in the week. It was initially with walking longer distances, but it has worsened over the last few days and starting yesterday she was SOB just walking to the bathroom. It gets better with rest, but today she was SOB at rest even. She always has LE swelling, but it is increased today and daughter notes some blisters that are new. She always has LE redness and this is at baseline. She had a slight L sided chest pain x1 yesterday, but it is more persistent today. She has been eating without issue. Pt denies fever, abd pain, n/v/c/d. Pt has RLS at baseline and states that the pain in her LE is much worse today than usual. Pt states she is feeling somewhat improved s/p O2, nebs, bumex in the ED. Allergies Allergy/AdvReac Type Severity Reaction Status Date / Time ibuprofen Allergy Intermediate HIVES Verified 02/15/19 11:14 lisinopril AdvReac Mild COUGH Verified 02/15/19 11:14 pramipexole AdvReac Verified 02/15/19 11:14 zolpidem AdvReac drowsinesss Verified 02/15/19 11:14 Home Medications Home Medications Medication Instructions Recorded Confirmed Type aspirin [Aspirin Low Dose] 81 mg PO HS #0 07/25/17 02/15/19 History cholecalciferol (vitamin D3) 3,000 unit PO QAM #0 tab 07/25/17 02/15/19 History [Vitamin D3] cyanocobalamin (vitamin B-12) 1,000 mcg PO QAM #0 tab 07/25/17 02/15/19 History [Vitamin B-12] labetalol 800 mg PO BID #0 tab 07/25/17 02/15/19 History levothyroxine [Synthroid] 75 mcg PO DIRECTED #0 tab 07/25/17 02/15/19 History omeprazole 20 mg PO QAM #0 cap 07/25/17 02/15/19 History insulin NPH isophane U- 100 human 40 units SC BIDM #0 ml 02/10/18 02/15/19 History 100 unit/mL subcutaneous suspension levalbuterol 0.63 mg/3 mL solution 0.63 mg INH Q6H PRN ml 02/18/18 02/15/19 History for nebulization mometasone-formoterol HFA 200 2 puffs INH BID 02/18/18 02/15/19 History mcg-5 mcg/actuation aerosol inhaler Novolin R Regular U-100 Insuln 20 unit SUBCUT QDL 02/22/18 02/15/19 History melatonin 10 mg PO HS PRN 02/22/18 02/15/19 History acetaminophen ER 650 mg 650 mg PO DAILY PRN tab 06/16/18 02/15/19 History tablet,extended release levothyroxine 200 mcg tablet 200 mcg PO QAM #90 tab 11/24/18 02/15/19 Rx ropinirole 0.5 mg tablet 1 mg PO HS 30 Days #60 tab 12/23/18 02/15/19 Rx docusate sodium 100 mg capsule 100 mg PO BID cap 12/29/18 02/15/19 History inhalational spacing device #1 ea 12/29/18 02/15/19 History nystatin 100,000 unit/gram topical 1 appln TOPICAL BID #1 gm 12/29/18 02/15/19 History powder simvastatin 20 mg tablet 20 mg PO PM #90 tab 01/12/19 02/15/19 Rx escitalopram 10 mg tablet 10 mg PO DAILY #30 tab 01/19/19 02/15/19 Rx bumetanide 2 mg tablet 2 mg PO BID #180 tab 01/30/19 02/15/19 Rx diclofenac 1 % topical gel 2 gm TOPICAL BID PRN #100 gm 02/10/19 02/15/19 Rx potassium chloride ER 20 mEq 20 meq PO BID #180 tab 02/13/19 02/15/19 Rx tablet,extended release(part/cryst) albuterol sulfate [Ventolin HFA] 2 puff INHALATION Q4H PRN 02/15/19 02/15/19 History insulin glargine [Basaglar KwikPen 100 unit SUBCUT QPM 02/15/19 02/15/19 History U-100 Insulin] sertraline 75 mg PO DAILY 02/15/19 02/15/19 History warfarin 1 mg PO DAILY 02/15/19 02/15/19 History warfarin 2 mg PO DAILY 02/15/19 02/15/19 History Past Med/Surg History Medical History SHELIA on CPAP (Chronic) Anemia Vitamin D deficiency Hypothyroidism (Chronic) Arthritis (Acute) CHF (congestive heart failure) (Chronic) COPD (chronic obstructive pulmonary disease) (Chronic) Chronic GERD (Chronic) Depression (Chronic) Diabetic neuropathy (Chronic) HTN (hypertension) (Chronic) Hemorrhoids (Chronic) Hyperlipidemia (Chronic) Left bundle branch block (Chronic) Lymphedema (Chronic) Mild mitral stenosis (Chronic) Mitral regurgitation (Chronic) Morbid obesity (Chronic) Osteopenia (Chronic) Restless leg syndrome (Chronic) Stage III chronic kidney disease (Chronic) Urinary incontinence (Chronic) Venous insufficiency (Chronic) Vulvar cyst (Chronic) Vulvovaginitis (Chronic) Diabetes (Resolved) Surgical History History of cholecystectomy History of hysterectomy Family History Mother Diabetes Colon cancer Social History Preferred Language: [place] Communication Ability: Effective Visual Impairment: No Limitations Hearing Ability: Normal 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 Beliefs That Will Affect Care: None marital status: Current Living Situation: Spouse Current Living Situation Comment: [facility] Feels Safe at Home: Yes Smoking Status: Never smoker Second Hand Exposure: No ; Hx Alcohol Use: No Hx Substance Use: No Review of Systems Review of Systems: Pertinent positives and negatives reviewed in HPI--all o thers negative Physical Exam Constitutional: WD/WN, vitals as above Eyes: normal visual barnes by confrontation and + anicteric sclerae Neck: normal visual inspection and trachea midline Respiratory: normal respiratory effort; no respiratory distress Auscultation: + wheezes; no crackles Cardiovascular: Rate/Rhythm: regular rate and regular rhythm Gastrointestinal (Abdomen): Inspection/Auscultation: abdomen not distended Percussion/Palpation: abdomen soft; abdomen nontender Musculoskeletal: Head/Neck/Chest: normocephalic and head atraumatic b/l 2+ pitting LE edema, peripheral pulses intact Skin: red to the knees c/w chronic skin changes Blisters noted on lower legs, L>>R, not open, dry Neurologic: awake; not confused Speech / Cognition: normal speech Psychiatric: A+Ox3, euthymic affect Results & Data Vital Signs (Past 12 Hours) Vital Signs Temp Pulse Pulse Resp BP Pulse Ox 02/15/19 12:30 93 H 31 H 159/76 H 92 02/15/19 12:02 91 H 34 H 165/97 H 98 02/15/19 11:40 88 29 H 173/84 H 100 02/15/19 11:25 88 28 H 96 02/15/19 11:21 94 02/15/19 10:46 37.2 C 88 28 H 156/85 H 91 02/15/19 10:40 90 21 156/85 H 94 Diagnostic Findings CXR: interstitial edema Code Status & VTE Plan Code Status Full code. States her daughter is POA. VTE Prophylaxis Plan VTE Prophylaxis will be ordered: Yes PG Care Time/CCT Total # of Minutes Spent Total Time Spent with Patient: Total time spent is greater than 50% in coordination of care (as documented) at patient's floor/unit and/or counseling patient: (1) GERD (gastroesophageal reflux disease) Esophagitis presence: esophagitis presence not specified Qualified Code(s): K21.9 - Gastro-esophageal reflux disease without esophagitis (2) Hypothyroidism Hypothyroidism type: unspecified Qualified Code(s): E03.9 - Hypothyroidism, unspecified
[2019-02-15] MEDS ORDERED: ONDANSETRON INJ 2 MG/ML 2 ML VIAL IV PRN (16:41)
[2019-02-15] MEDS ORDERED: ALBUTEROL HFA 8 GM INHALER INH PRN (16:41)
[2019-02-15] MEDS ORDERED: MAGNESIUM HYDROXIDE SUSP 30 ML UDC PO PRN (16:41)
[2019-02-15] MEDS ORDERED: DEXTROSE 50% 50 ML SYRINGE IV PRN (16:41)
[2019-02-15] MEDS ORDERED: LEVALBUTEROL HCL 0.63 MG/3 ML NEB INH PRN (16:41)
[2019-02-15] MEDS ORDERED: GLUCOSE 40% GEL 15 GM TUBE PO PRN (16:41)
[2019-02-15] MEDS ORDERED: CARBOHYDRATES FOR HYPOGLYCEMIA PO PRN (16:41)
[2019-02-15] MEDS ORDERED: ACETAMINOPHEN 325 MG TAB PO PRN (16:41)
[2019-02-15] MEDS ORDERED: GLUCAGON FOR INJ 1 MG VIAL SQ PRN (16:41)
[2019-02-15] MEDS ORDERED: GLUCOSE 10 TABS/TUBE PO PRN (16:41)
[2019-02-15] MEDS ORDERED: NON-FORMULARY MEDICATION (Acetaminophen [Tylenol 8 Hour] 650 MG) PO PRN (16:41)
[2019-02-15] MEDS: ALBUT/IPRATROP 3MG/0.5MG NEB 3 ML VIAL NEB SCH ×3 (17:29→22:44)
--- NOTE | 2019-02-15 18:01 | Emergency Department Note ---
Entered by Almita Forde acting as a scribe for History of Present Illness General Chief complaint: Shortness of Breath/Dyspnea Stated complaint: SOB,NECK PAIN AND BACK PAIN Time Seen by Provider: 02/15/19 11:03 History of Present Illness Provider complaint: shortness of breath Onset (ago): day(s) 2 Pain Consistency: + other (episode) Maximum Pain Intensity: 8 Quality: + other (shortness of breath) Exacerbated By: + movement Associated symptoms: + cough (non-productive) and + other (gained a lot of weight recently, burning in left side of chest); no fever/chills The patient is a 73 year old female with PMHx of CHF and COPD who presents to the ED with complaints of shortness of breath that started 2 days ago. The patient states that she has a cough that is non-productive. The patient notes that the shortness of breath is exacerbated by movement. The patient states that she has burning in the left side of her chest that worsens upon exacerbation. The patient notes that she has gained a lot of weight recently. The patient denies having a fever. Home Medications Home Medications Medication Instructions Recorded Confirmed Type aspirin [Aspirin Low Dose] 81 mg PO HS #0 07/25/17 02/15/19 History cholecalciferol (vitamin D3) 3,000 unit PO QAM #0 tab 07/25/17 02/15/19 History [Vitamin D3] cyanocobalamin (vitamin B-12) 1,000 mcg PO QAM #0 tab 07/25/17 02/15/19 History [Vitamin B-12] labetalol 800 mg PO BID #0 tab 07/25/17 02/15/19 History levothyroxine [Synthroid] 75 mcg PO DIRECTED #0 tab 07/25/17 02/15/19 History omeprazole 20 mg PO QAM #0 cap 07/25/17 02/15/19 History insulin NPH isophane U- 100 human 40 units SC BIDM #0 ml 02/10/18 02/15/19 History 100 unit/mL subcutaneous suspension levalbuterol 0.63 mg/3 mL solution 0.63 mg INH Q6H PRN ml 02/18/18 02/15/19 History for nebulization mometasone-formoterol HFA 200 2 puffs INH BID 02/18/18 02/15/19 History mcg-5 mcg/actuation aerosol inhaler Novolin R Regular U-100 Insuln 20 unit SUBCUT QDL 02/22/18 02/15/19 History melatonin 10 mg PO HS PRN 02/22/18 02/15/19 History acetaminophen ER 650 mg 650 mg PO DAILY PRN tab 06/16/18 02/15/19 History tablet,extended release levothyroxine 200 mcg tablet 200 mcg PO QAM #90 tab 11/24/18 02/15/19 Rx ropinirole 0.5 mg tablet 1 mg PO HS 30 Days #60 tab 12/23/18 02/15/19 Rx docusate sodium 100 mg capsule 100 mg PO BID cap 12/29/18 02/15/19 History inhalational spacing device #1 ea 12/29/18 02/15/19 History nystatin 100,000 unit/gram topical 1 appln TOPICAL BID #1 gm 12/29/18 02/15/19 History powder simvastatin 20 mg tablet 20 mg PO PM #90 tab 01/12/19 02/15/19 Rx escitalopram 10 mg tablet 10 mg PO DAILY #30 tab 01/19/19 02/15/19 Rx bumetanide 2 mg tablet 2 mg PO BID #180 tab 01/30/19 02/15/19 Rx diclofenac 1 % topical gel 2 gm TOPICAL BID PRN #100 gm 02/10/19 02/15/19 Rx potassium chloride ER 20 mEq 20 meq PO BID #180 tab 02/13/19 02/15/19 Rx tablet,extended release(part/cryst) albuterol sulfate [Ventolin HFA] 2 puff INHALATION Q4H PRN 02/15/19 02/15/19 History insulin glargine [Basaglar KwikPen 100 unit SUBCUT QPM 02/15/19 02/15/19 History U-100 Insulin] sertraline 75 mg PO DAILY 02/15/19 02/15/19 History warfarin 1 mg PO DAILY 02/15/19 02/15/19 History warfarin 2 mg PO DAILY 02/15/19 02/15/19 History Allergies Allergy/AdvReac Type Severity Reaction Status Date / Time ibuprofen Allergy Intermediate HIVES Verified 02/15/19 11:14 lisinopril AdvReac Mild COUGH Verified 02/15/19 11:14 pramipexole AdvReac Verified 02/15/19 11:14 zolpidem AdvReac drowsinesss Verified 02/15/19 11:14 Past Med/Surg History Medical History SHELIA on CPAP (Chronic) Anemia Vitamin D deficiency Hypothyroidism (Chronic) Arthritis (Acute) CHF (congestive heart failure) (Chronic) COPD (chronic obstructive pulmonary disease) (Chronic) Chronic GERD (Chronic) Depression (Chronic) Diabetic neuropathy (Chronic) HTN (hypertension) (Chronic) Hemorrhoids (Chronic) Hyperlipidemia (Chronic) Left bundle branch block (Chronic) Lymphedema (Chronic) Mild mitral stenosis (Chronic) Mitral regurgitation (Chronic) Morbid obesity (Chronic) Osteopenia (Chronic) Restless leg syndrome (Chronic) Stage III chronic kidney disease (Chronic) Urinary incontinence (Chronic) Venous insufficiency (Chronic) Vulvar cyst (Chronic) Vulvovaginitis (Chronic) Diabetes (Resolved) Surgical History History of cholecystectomy History of hysterectomy Family History Mother Diabetes Colon cancer Social History Preferred Language: Palauan Communication Ability: Effective Visual Impairment: No Limitations 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 and A total of 10 systems reviewed and were otherwise negative Physical Exam Vital Signs Vital Signs - 24 hr 02/15/19 10:40 02/15/19 10:46 02/15/19 11:21 Temperature 37.2 C Temperature Source Oral Sepsis Recent Fever Within 48 Hours No Sepsis New/Unexplained Change in Mental Status No Sepsis Action Taken by Nursing No Action Required Oxygen Flow Rate - Titration 2 Pulse Oximetry Post Tiitration 95 Pulse Rate 90 88 Pulse Rate [Right Finger] Pulse Rate from SpO2 Sensor 90 Respiratory Rate 21 28 H Respiratory Effort / Characteristics Blood Pressure 156/85 H 156/85 H Blood Pressure Mean 108 108 Pulse Oximetry 94 91 94 Oxygen Delivery Method Nasal Cannula Nasal Cannula Nasal Cannula Oxygen Flow Rate 2 0 2 02/15/19 11:25 02/15/19 11:40 02/15/19 12:02 Temperature Temperature Source Sepsis Recent Fever Within 48 Hours Sepsis New/Unexplained Change in Mental Status Sepsis Action Taken by Nursing Oxygen Flow Rate - Titration Pulse Oximetry Post Tiitration Pulse Rate 88 91 H Pulse Rate [Right Finger] 88 Pulse Rate from SpO2 Sensor 89 92 H Respiratory Rate 28 H 29 H 34 H Respiratory Effort / Characteristics Spontaneous Short of Breath Blood Pressure 173/84 H 165/97 H Blood Pressure Mean 113 119 Pulse Oximetry 96 100 98 Oxygen Delivery Method Nasal Cannula Nebulizer Nebulizer Oxygen Flow Rate 3 8 02/15/19 12:30 02/15/19 13:00 02/15/19 13:30 Temperature Temperature Source Sepsis Recent Fever Within 48 Hours Sepsis New/Unexplained Change in Mental Status Sepsis Action Taken by Nursing Oxygen Flow Rate - Titration Pulse Oximetry Post Tiitration Pulse Rate 93 H 91 H 89 Pulse Rate [Right Finger] Pulse Rate from SpO2 Sensor 93 H 91 H 89 Respiratory Rate 31 H 26 H 20 Respiratory Effort / Characteristics Blood Pressure 159/76 H 155/77 H 146/63 H Blood Pressure Mean 103 103 90 Pulse Oximetry 92 94 95 Oxygen Delivery Method Nasal Cannula Oxygen Flow Rate 2 2 2 General: Chronically ill appearing older female in moderate respiratory distress. HEENT: Normal cephalic atraumatic. Pupils are equal round and reactive to light. Extraocular movements are intact. Oropharynx is pink with moist mucous membranes. No swelling of the mouth lips or tongue. Neck: Supple with a midline trachea. No meningeal signs or stiffness, no JVD or bruits. No Stridor. Chest: Diminished breath sounds bilaterally. Clear to auscultation bilaterally. No wheezes or rhonchi. No increased work of breathing. Heart: regular rate and rhythm. Abdomen: Soft nontender, nondistended without rebound guarding or rigidity. Extremities: Bilateral lower extremity edema. No cyanosis or clubbing. No calf tenderness or asymmetry Spine/Back. Non tender to palpation. No CVA tenderness Skin: [place] discoloration of the skin. Neurologic exam: Cranial nerves two through 12 are intact. Motor and sensation are intact and symmetrical throughout. Course 1058: Past medical records reviewed. The patient was evaluated in room B11. A complete history and physical exam was performed. 1131: I reevaluated the patient and she is still mildly short of breath. 1202: I reevaluated the patient and she is still mildly short of breath, but doing much better. 1236: I discussed the patient's case with Dr. Celestin [facility] Hospitalist. She will evaluate the patient for further management. Consultations Consultation #1: I discussed the patient's case with Dr. Celestin [facility] Hospitalist. She will evaluate the patient for further management. Time: 12:36 Administered Medications Acetaminophen (Tylenol) 650 mg PO Q4H PRN PRN Reason: Pain or Fever Stop: 03/17/19 16:40 Last Admin: 02/15/19 17:47 Dose: 650 mg Documented by: [id number] Albuterol (Duoneb) 3 ml NEB Q4R LANRE Stop: 03/17/19 16:40 Last Admin: 02/15/19 17:29 Dose: 3 ml Documented by: [id number] Bumetanide 1 mg/ Syringe 4 mls @ 4 mls/min IV NOW LANRE Stop: 03/17/19 12:14 Last Admin: 02/15/19 12:17 Dose: 4 mls/min Documented by: [id number] Discontinued Medications Acetaminophen (Tylenol) 650 mg PO NOW STA Stop: 02/15/19 11:43 Last Admin: 02/15/19 12:07 Dose: 650 mg Documented by: [id number] Albuterol (Duoneb) 12 ml NEB ONE ONE Stop: 02/15/19 11:14 Last Admin: 02/15/19 11:25 Dose: 12 ml Documented by: [id number] Bumetanide (Bumex) Confirm Administered Dose 1 mg IV .STK-MED ONE Stop: 02/15/19 12:12 Last Admin: 02/15/19 12:17 Dose: Not Given Documented by: [id number] Methylprednisolone (Solumedrol) 125 mg IV NOW STA Stop: 02/15/19 12:04 Last Admin: 02/15/19 12:17 Dose: 125 mg Documented by: [id number] Medical Decision Making Differential Diagnosis Differentials include CHF, COPD, acute coronary syndrome, PE, pneumonia, sepsis, metabolic and electrolyte abnormality. Medical Records Attestation: I reviewed the patient's medical records. Home Medications Current Medication List: was personally reviewed by me Laboratory Data Attestation: I reviewed the patient's lab results. Result diagrams: 02/15/19 11:13 02/15/19 11:13 Lab Results 02/15/19 02/15/19 02/15/19 Range/Units 11:13 11:13 11:13 WBC 15.07 H (4.8-10.8) K/uL RBC 4.41 (4.2-5.4) M/uL Hgb 12.0 (12.0-16.0) g/dL Hct 37.3 (37-47) % MCV 84.6 (80-100) fL MCH 27.2 (25-34) pg MCHC 32.2 (32-36) g/dL RDW Std Deviation 51.1 H (36.4-46.3) fL RDW Coeff of Joycelyn 16.5 H (11.5-14.5) % Plt Count 279 (130-400) K/uL MPV 10.3 (7.4-10.4) fL Immature Gran % (Auto) 0.1 % Neut % (Auto) 87.1 % Lymph % (Auto) 5.0 % Camp % (Auto) 5.4 % Eos % (Auto) 2.3 % Baso % (Auto) 0.1 % Immature Gran # (Auto) 0.02 (0.00-0.02) K/uL Neut # (Auto) 13.13 H (1.4-6.5) K/uL Lymph # (Auto) 0.75 L (1.2-3.4) K/uL Camp # (Auto) 0.81 H (0.11-0.59) K/uL Eos # (Auto) 0.34 (0-0.5) K/uL Baso # (Auto) 0.02 (0-0.2) K/uL PT 18.5 H (9.0-12.0) Seconds INR 1.9 H (0.9-1.1) APTT 43.5 H (21.0-31.0) Seconds PTT Ratio 1.6 Sodium (136-145) mmol/L Potassium (3.5-5.1) mmol/L Chloride (98-107) mmol/L Carbon Dioxide (21-32) mmol/L Anion Gap (3-11) BUN (7-18) mg/dl Creatinine (0.6-1.2) mg/dl Est Cr Clr Drug Dosing ml/min Est GFR ( Amer) Est GFR (Non-Af Amer) BUN/Creatinine Ratio (10-20) Glucose (70-99) mg/dl Lactate (0.4-2.0) mmol/L Calcium (8.5-10.1) mg/dl Total Bilirubin (0.2-1) mg/dl AST (15-37) U/L ALT (12-78) U/L Alkaline Phosphatase (45-117) U/L Troponin I (0-0.045) ng/ml NT-Pro-B Natriuret Pep (0-900) pg/ml Total Protein (6.4-8.2) gm/dl Albumin (3.4-5.0) gm/dl Globulin (2.5-4.0) gm/dl Albumin/Globulin Ratio (0.9-2) Procalcitonin 0.08 (0-0.5) ng/ml 02/15/19 02/15/19 02/15/19 Range/Units 11:13 11:13 11:13 WBC (4.8-10.8) K/uL RBC (4.2-5.4) M/uL Hgb (12.0-16.0) g/dL Hct (37-47) % MCV (80-100) fL MCH (25-34) pg MCHC (32-36) g/dL RDW Std Deviation (36.4-46.3) fL RDW Coeff of Joycelyn (11.5-14.5) % Plt Count (130-400) K/uL MPV (7.4-10.4) fL Immature Gran % (Auto) % Neut % (Auto) % Lymph % (Auto) % Camp % (Auto) % Eos % (Auto) % Baso % (Auto) % Immature Gran # (Auto) (0.00-0.02) K/uL Neut # (Auto) (1.4-6.5) K/uL Lymph # (Auto) (1.2-3.4) K/uL Camp # (Auto) (0.11-0.59) K/uL Eos # (Auto) (0-0.5) K/uL Baso # (Auto) (0-0.2) K/uL PT (9.0-12.0) Seconds INR (0.9-1.1) APTT (21.0-31.0) Seconds PTT Ratio Sodium 144 (136-145) mmol/L Potassium 3.7 (3.5-5.1) mmol/L Chloride 108 H (98-107) mmol/L Carbon Dioxide 28 (21-32) mmol/L Anion Gap 8.0 (3-11) BUN 38 H (7-18) mg/dl Creatinine 1.80 H (0.6-1.2) mg/dl Est Cr Clr Drug Dosing 42.2 ml/min Est GFR ( Amer) 32.0 Est GFR (Non-Af Amer) 27.6 BUN/Creatinine Ratio 21.3 H (10-20) Glucose 148 H (70-99) mg/dl Lactate 1.9 (0.4-2.0) mmol/L Calcium 9.7 (8.5-10.1) mg/dl Total Bilirubin 0.7 (0.2-1) mg/dl AST 12 L (15-37) U/L ALT 21 (12-78) U/L Alkaline Phosphatase 89 (45-117) U/L Troponin I < 0.015 (0-0.045) ng/ml NT-Pro-B Natriuret Pep 367 (0-900) pg/ml Total Protein 8.1 (6.4-8.2) gm/dl Albumin 3.7 (3.4-5.0) gm/dl Globulin 4.4 H (2.5-4.0) gm/dl Albumin/Globulin Ratio 0.9 (0.9-2) Procalcitonin (0-0.5) ng/ml 02/15/19 Range/Units 11:13 WBC (4.8-10.8) K/uL RBC (4.2-5.4) M/uL Hgb (12.0-16.0) g/dL Hct (37-47) % MCV (80-100) fL MCH (25-34) pg MCHC (32-36) g/dL RDW Std Deviation (36.4-46.3) fL RDW Coeff of Joycelyn (11.5-14.5) % Plt Count (130-400) K/uL MPV (7.4-10.4) fL Immature Gran % (Auto) % Neut % (Auto) % Lymph % (Auto) % Camp % (Auto) % Eos % (Auto) % Baso % (Auto) % Immature Gran # (Auto) (0.00-0.02) K/uL Neut # (Auto) (1.4-6.5) K/uL Lymph # (Auto) (1.2-3.4) K/uL Camp # (Auto) (0.11-0.59) K/uL Eos # (Auto) (0-0.5) K/uL Baso # (Auto) (0-0.2) K/uL PT (9.0-12.0) Seconds INR (0.9-1.1) APTT (21.0-31.0) Seconds PTT Ratio Sodium (136-145) mmol/L Potassium (3.5-5.1) mmol/L Chloride (98-107) mmol/L Carbon Dioxide (21-32) mmol/L Anion Gap (3-11) BUN (7-18) mg/dl Creatinine (0.6-1.2) mg/dl Est Cr Clr Drug Dosing ml/min Est GFR ( Amer) Est GFR (Non-Af Amer) BUN/Creatinine Ratio (10-20) Glucose (70-99) mg/dl Lactate (0.4-2.0) mmol/L Calcium (8.5-10.1) mg/dl Total Bilirubin (0.2-1) mg/dl AST (15-37) U/L ALT (12-78) U/L Alkaline Phosphatase (45-117) U/L Troponin I Cancelled (0-0.045) ng/ml NT-Pro-B Natriuret Pep (0-900) pg/ml Total Protein (6.4-8.2) gm/dl Albumin (3.4-5.0) gm/dl Globulin (2.5-4.0) gm/dl Albumin/Globulin Ratio (0.9-2) Procalcitonin (0-0.5) ng/ml Imaging Data Radiologist's Impression: Radiology results as stated below per my review and the radiologist's interpretation: XR chest 1V portable CLINICAL HISTORY: Sepsis COMPARISON STUDY: Chest radiograph January 12, 2019. FINDINGS: Moderate cardiomegaly is noted. There is no pneumothorax or pleural effusion. There is pulmonary vascular congestion with mild interstitial pulmonary edema. This has increased when compared to exam of January 12, 2019. No consolidation to suggest pneumonia is present. IMPRESSION: 1. Mild interstitial pulmonary edema. 2. Stable cardiomegaly. Electronically signed by: Turner Pollock M.D. 02/15/2019 11:47 AM ECG Data Attestation: I personally reviewed and interpreted this ECG as follows: Indication: chest pain Rate (beats per minute): 91 Rhythm: normal sinus Findings: + other (poor baseline) and + LBBB; no PAC, no PVC, no ST depression, no ST elevation, no acute ischemic change and no ectopy Comparison ECG Date: from (01/12/2019) Change: no significant change Blood Pressure Blood Pressure Findings: Elevated blood pressure Blood Pressure Disposition: further management by hospitalist SHERIF Narrative This patient comes in as described above. She presents with shortness of breath. The nurse came and got me to ask me to see her as the patient was moder ately short of breath. When I go in the room, she does appear dyspneic. she is able to speak but gets very short of breath. She does have history of COPD as well as CHF and other medical problems. She has had a PE history as well. Her lungs have diminished breath sounds bilaterally. IV access was established. She has had no fever or any productive cough. Blood cultures and lactic acid as well to do the full sepsis work-up. She does have an elevated white count but there is no infiltrate seen on her x-ray and she has no elevation of her lactic acid. At this point, I do not think she is likely septic. Her chest x-ray does show congestive heart failure. She did have an hour-long DuoNeb as well as Solu-Medrol 125 mgs IV and Bumex 1 mg IV. She is starting to feel better but still has some shortness of breath and dyspnea and I do think needs to be admitted. She does have an INR of 1.9. Her creatinine is 1.8 which is about baseline she has been actually worse before. Given her elevated creatinine and I do not think she should have a CAT scan with IV contrast at this point. I do not think is likely PE. Her procalcitonin was also normal which goes against infection/sepsis as well. I think this is likely combination of CHF and COPD. I do think she needs to be admitted/observe for further inpatient treatment and evaluation. I have consulted Dr. Noguera who saw her in the ER for these measures. Impression & Plan Shortness of breath, Chronic anticoagulation, CHF (congestive heart failure), COPD exacerbation, Peripheral edema Critical Care Time Critical Care Time: Yes Total Critical Care Time: 35 Due to the patient's shortness of breath and significant dyspnea and need for multiple medications and breathing treatments as well as frequent reassessment I have personally spent greater than 35 minutes of critical care time in the direct management of this patient. This includes bedside care, interpretation of diagnostic studies, and testing, discussion with consultants, patient, and family members, and other required patient management activities. This 35 minutes is in excess of all separately billable procedures. Discharge Plan Visit Data *Final* Discharge Date/Time: 02/15/19 15:25 Chief Complaint: Shortness of Breath/Dyspnea Stated Complaint: SOB,NECK PAIN AND BACK PAIN ED Provider: Mark Bourne Discharge Problem: Shortness of breath, Chronic anticoagulation, CHF (congestive heart failure), COPD exacerbation, Peripheral edema Patient Disposition: Admitted As Inpatient Discharge Instructions Interventions: ED Discharge Assessment Last Done: 02/15/19 15:25 Discharge Problem: CHF (congestive heart failure) Qualifiers: Heart failure type: unspecified Heart failure chronicity: unspecified Qualified Code(s): I50.9 - Heart failure, unspecified The scribe's documentation has been prepared under my direction and personally reviewed by me in its entirety. I confirm that the note above accurately reflects all work, treatment, procedures, and medical decision making performed by me.
[2019-02-15] MEDS: INSULIN ASPART 100 UNITS/ML 3 ML PEN SC SCH ×2 (18:09→20:30)
[2019-02-15] MEDS: WARFARIN SOD 5 MG TAB PO SCH (19:04)
[2019-02-15] MEDS: ROPINIROLE HCL 0.25 MG TABLET PO SCH (19:43)
[2019-02-15] MEDS: DICLOFENAC SOD 1% GEL 100 GM TUBE EXT PRN (19:48)
[2019-02-15] MEDS: DOCUSATE SODIUM 100 MG CAP PO SCH (20:21)
[2019-02-15] MEDS: BUMETANIDE 1 MG TAB PO SCH (20:22)
[2019-02-15] MEDS: ASPIRIN 81 MG ECTAB PO SCH (20:22)
[2019-02-15] MEDS: POTASSIUM CHLORIDE 20 MEQ TABCR PO SCH (20:23)
[2019-02-15] MEDS: NYSTATIN POWDER 15GM BTL EXT SCH (20:24)
[2019-02-15] MEDS: LABETALOL HCL 200 MG TAB PO SCH (20:24)
[2019-02-15] MEDS: SIMVASTATIN 20 MG TAB PO SCH (20:25)
[2019-02-15] MEDS: methylPREDNISolone 20 MG in SYRINGE 0 ML IV SCH (20:25)
[2019-02-15] MEDS: INSULIN GLARGINE 100 UNIT/ML VIAL SQ SCH (20:28)
[2019-02-15] MEDS ORDERED: NON-FORMULARY MEDICATION (Mometasone-Formoterol [Dulera] 2 PUFFS) INH SCH (21:00)
[2019-02-16] MEDS: ALBUT/IPRATROP 3MG/0.5MG NEB 3 ML VIAL NEB SCH ×6 (02:59→23:02)
[2019-02-16] MEDS: LEVOTHYROXINE SODIUM 200 MCG TABLET PO SCH (06:05)
[2019-02-16] MEDS: LEVOTHYROXINE SODIUM 75 MCG TABLET PO SCH (06:05)
[2019-02-16 07:01] LABS: INR 1.6 (0.9-1.1); Prothrombin Time 16.3 Seconds (9.0-12.0)
[2019-02-16 07:29] LABS: BUN Creatinine Ratio 23.4 (10-20); Calcium 8.6 mg/dl (8.5-10.1); Creatinine Clr Calc Pharmacy 36.5 ml/min; Est GFR (African American) 26.7; Est GFR (Non-African American) 23.1; Potassium 3.6 mmol/L (3.5-5.1)
[2019-02-16] MEDS: DOCUSATE SODIUM 100 MG CAP PO SCH ×2 (07:58→21:02)
[2019-02-16] MEDS: POTASSIUM CHLORIDE 20 MEQ TABCR PO SCH ×2 (07:59→20:56)
[2019-02-16] MEDS: ESCITALOPRAM OXALATE 10 MG TAB PO SCH (07:59)
[2019-02-16] MEDS: LABETALOL HCL 200 MG TAB PO SCH ×2 (08:00→21:00)
[2019-02-16] MEDS: PANTOprazole 40 MG TAB PO SCH (08:01)
[2019-02-16] MEDS: CYANOCOBALAMIN 500 MCG TABLET (VITAMIN B-12) PO SCH (08:02)
[2019-02-16] MEDS: SERTRALINE HCL 50 MG TABLET PO SCH (08:02)
[2019-02-16] MEDS: CHOLECALCIFEROL 1,000 UNITS TAB PO SCH (08:03)
[2019-02-16] MEDS: DICLOFENAC SOD 1% GEL 100 GM TUBE EXT PRN ×2 (08:06→21:02)
[2019-02-16] MEDS: NYSTATIN POWDER 15GM BTL EXT SCH ×2 (08:07→21:06)
[2019-02-16] MEDS: methylPREDNISolone 20 MG in SYRINGE 0 ML IV SCH (08:10)
[2019-02-16] MEDS: INSULIN ASPART 100 UNITS/ML 3 ML PEN SC SCH ×4 (08:12→20:58)
[2019-02-16 08:14] LABS: Estimated Average Glucose 166 mg/dl; Hemoglobin A1C 7.4 % (4.5-5.6)
[2019-02-16] MEDS: INSULIN GLARGINE 100 UNIT/ML VIAL SQ SCH ×2 (08:17→20:58)
[2019-02-16] MEDS: BUMETANIDE 1 MG TAB PO SCH (09:34)
[2019-02-16] MEDS ORDERED: NURSING DECISION MEDICATION ONE (09:57)
[2019-02-16] MEDS: WARFARIN SOD 2.5 MG TAB PO SCH (16:22)
--- NOTE | 2019-02-16 19:02 | Hospitalist Progress Note ---
Date of Service February 16, 2019 Assessment & Plan (1) Hypoxia: Suspected COPD exacerbation. Mild interstitial pulmonary edema reported on chest x-ray but similar to prior CXR per my read, BNP unremarkable and creatinine rise with increased diuretic use suggests less likely CHF. Wean O2, aim sats >92% Given improvement and on warfarin no need for CT for PE at present. (2) Systolic murmur: Given unclear CHF diagnosis and systolic murmur on exam will repeat echocardiogram as none recent in last year. (3) COPD exacerbation: No wheezing currently on exam but given lack of clear etiology for hypoxia will continue steroids for short duration (3-5 days). Switch IV methylprednisone to PO prednisone 20mg PO daily (lower dose due to hypoglycemia). Historical diagnosis of COPD with no prior PFTs available, no chronic medications. (4) Chest pain: Resolved Negative serial troponins. No EKG ?cancelled. No indication to repeat unless further pain. (5) Peripheral edema: Suspect mostly venous insufficiency. Suspect some right sided failure related to SHELIA and obesity hypoventilation. BNP unremarkable making CHF diagnos is unclear. No JVD visible with neck size. Echo in 2017 LVEF 55-60%, mild mitral stenosis, mild mitral regurgitation, mild concentric left ventricular hypertrophy. (6) Stage III chronic kidney disease: Increased Cr to 2.09 this morning. Holding further doses of lasix. 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 Will increase Lantus to 60 units BID and carb coverage 5->4g, correction 15->10 A1c 7.4 (14) GERD (gastroesophageal reflux disease): continue home meds (15) Hypokalemia: continue home meds Recent increase to BID dosing. Close monitoring daily given holding bumex likely potassium will increase (16) Hypothyroidism: continue home meds Takes 275mcg every day except 200mcg on W/Sa (17) Bilateral pulmonary embolism: Remote event INR 1.6 today. Will give extra dose of warfarin. PTINR daily (18) DVT prophylaxis: INR 1.6. Extra dose of warfarin 2.5mg today. Monitor INR daily. Subjective No acute issues overnight. Patient feels much better this morning. She does not feel completely back to her baseline, but her shortness of breath is much improved. No chest pain, orthopnea, PND, claudication, palpitations. Review of Systems Review of Systems: All systems reviewed & are unremarkable except as noted in HPI & below Physical Exam Constitutional: well developed and + morbidly obese; not in distress Eyes: PERRL ENMT: external ear and nose normal, oropharynx normal Neck: trachea midline, no thyromegaly Respiratory: normal respiratory effort; no respiratory distress, no labored breathing and does not use accessory muscles Auscultation: + breath sounds absent (Bibasal); no crackles, no rales, no rhonchi and no wheezes Cardiovascular: Rate/Rhythm: regular rate and regular rhythm Heart Sounds: normal S1 and normal S2 Vessels: no JVD Extremities: normal capillary refill and + edema (2+, bilateral knees, chronic venous dermatitis) Distant heart sounds Gastrointestinal (Abdomen): Inspection/Auscultation: abdomen normal to inspection; abdomen not distended Percussion/Palpation: abdomen soft; abdomen nontender and no guarding Musculoskeletal: no cyanosis or clubbing, extremities motor strength 5/5 Skin: no rashes, warm and dry Chronic venous dermatitis bilateral lower extremities Neurologic: PERRL, EOMI, accommodation nl, no face palsy, no dysarthria Psychiatric: A+Ox3, euthymic affect Results & Data Vital Signs (Past 12 Hours) Vital Signs Temp Pulse Pulse Resp BP Pulse Ox 02/16/19 15:41 76 18 96 02/16/19 15:05 74 02/16/19 11:23 97.9 F 71 16 147/60 H 96 02/16/19 10:54 63 20 98 02/16/19 08:00 73 02/16/19 07:24 97.9 F 86 16 131/62 92 02/16/19 07:12 75 20 97 PG Care Time/CCT Total # of Minutes Spent Total Time Spent with Patient: Total time spent is greater than 50% in coordination of care (as documented) at patient's floor/unit and/or counseling patient: (1) Depression Depression Type: major depressive disorder (2) Hypothyroidism Hypothyroidism type: unspecified Qualified Code(s): E03.9 - Hypothyroidism, unspecified (3) GERD (gastroesophageal reflux disease) Esophagitis presence: esophagitis presence not specified Qualified Code(s): K21.9 - Gastro-esophageal reflux disease without esophagitis (4) Diabetic nephropathy Diabetes mellitus type: type 2 Qualified Code(s): E11.21 - Type 2 diabetes mellitus with diabetic nephropathy (5) Hypertension Hypertension type: essential hypertension Qualified Code(s): I10 - Essential (primary) hypertension
[2019-02-16] MEDS ORDERED: WARFARIN SOD 2.5 MG TAB PO ONE (19:45)
[2019-02-16] MEDS: ASPIRIN 81 MG ECTAB PO SCH (20:57)
[2019-02-16] MEDS: SIMVASTATIN 20 MG TAB PO SCH (21:01)
[2019-02-16] MEDS: MICONAZOLE NITRATE POWDER 43 GM EXT PRN (21:01)
[2019-02-16] MEDS: ROPINIROLE HCL 0.25 MG TABLET PO SCH (21:04)
[2019-02-17] MEDS ORDERED: ZOLPIDEM TARTRATE 5 MG TAB PO PRN (01:42)
[2019-02-17] MEDS: ALBUT/IPRATROP 3MG/0.5MG NEB 3 ML VIAL NEB SCH ×6 (02:40→22:56)
[2019-02-17] MEDS: LEVOTHYROXINE SODIUM 75 MCG TABLET PO SCH (05:46)
[2019-02-17] MEDS: LEVOTHYROXINE SODIUM 200 MCG TABLET PO SCH (05:47)
[2019-02-17 06:23] LABS: Basophils # (auto) 0.02 K/uL (0-0.2); Basophils % (auto) 0.2 %; Eosinophils # (auto) 0.13 K/uL (0-0.5); Eosinophils % (auto) 1.1 %; Hematocrit (blood only) 33.9 % (37-47); Hemoglobin 10.6 g/dL (12.0-16.0); Immature Granulocytes # (auto) 0.04 K/uL (0.00-0.02); Immature Granulocytes % (auto) 0.3 %; Lymphocytes % (auto) 12.9 %; Mean Corpuscular Hemoglobin 26.4 pg (25-34); Mean Corpuscular Hgb Conc 31.3 g/dL (32-36); Mean Corpuscular Volume 84.5 fL (80-100); Mean Platelet Volume 10.8 fL (7.4-10.4); Monocytes # (auto) 1.31 K/uL (0.11-0.59); Monocytes % (auto) 11.3 %; Neutrophils # (auto) 8.62 K/uL (1.4-6.5); Neutrophils % (auto) 74.2 %; Platelet Count 264 K/uL (130-400); RDW Coefficient of Variation 16.9 % (11.5-14.5); RDW Standard Deviation 52.4 fL (36.4-46.3); Red Blood Count 4.01 M/uL (4.2-5.4); White Blood Count 11.62 K/uL (4.8-10.8)
[2019-02-17 06:36] LABS: Prothrombin Time 19.5 Seconds (9.0-12.0)
[2019-02-17 06:50] LABS: BUN Creatinine Ratio 33.2 (10-20); Calcium 8.6 mg/dl (8.5-10.1); Creatinine Clr Calc Pharmacy 42.1 ml/min; Est GFR (African American) 31.8; Est GFR (Non-African American) 27.4; Potassium 3.6 mmol/L (3.5-5.1)
[2019-02-17] MEDS ORDERED: PERFLUTREN LIPID MICROSPHERE (DEFINITY) IV ONE (07:20)
--- NOTE | 2019-02-17 07:21 | Hospitalist Progress Note ---
Date of Service February 17, 2019 Assessment & Plan (1) Hypoxia: Secondary to COPD/asthma exacerbation. Mild interstitial pulmonary edema reported on chest x-ray but similar to prior CXR per my read, BNP unremarkable and creatinine/BUN rise with increased diuretic use suggests less likely i ntravascularly hypervolemic. Wean O2, aim sats >92% Given improvement and on warfarin no need for CT for PE at present. (2) COPD exacerbation: Mixed obstructive and restrictive ventilatory disease on PFTs 08/2018. Severe obstructive ventilatory disease with moderate bronchodilator response and lifelong non-smoker therefore unclear COPD vs. asthma diagnosis. No wheezing currently on exam but given lack of clear etiology for hypoxia and improvement with steroids will continue steroids for short duration (5 days) @ 30mg. Continue PO prednisone 20mg PO daily (lower dose due to hypoglycemia). Historical diagnosis of COPD with no prior PFTs available, no chronic medications. (3) Obesity hypoventilation syndrome: Contributory towards SHELIA (4) Obstructive sleep apnea: CPAP @ night as able. (5) Systolic murmur: Echo pending (6) Chest pain: Resolved EKG - LBBB @ baseline Negative serial troponins. (7) Peripheral edema: Suspect mostly venous insufficiency, Hx prior DVT. Likely some right sided failure related to SHELIA, PE Hx and obesity hypoventilation. BNP unremarkable making CHF diagnosis unclear. No JVD visible with neck size. Will continue to hold bumex in light of elevated BUN. Weight stable 327/8 lb. Positive I&Os balance 20ml but x2 unmeasured voids. Repeat echo pending. BETTY tapia (8) Restless leg syndrome: continue home meds (9) Hyperlipidemia: continue home meds (10) Hypertension: continue home meds (11) Depression: continue home meds (12) Diabetic nephropathy: continue home meds (13) 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, with long- term current use of insulin: Improved control with increase basal bolus regimen changed 02/16. Lantus to 50->60 units BID and carb coverage 5->4g, correction 15->10 A1c 7.4 (14) CKD (chronic kidney disease) stage 4, GFR 15-29 ml/min: Cr improved to baseline holding bumex. Continuing to hold bumex given elevated BUN. (15) GERD (gastroesophageal reflux disease): continue home meds (16) Hypokalemia: continue home meds Recent increase to BID dosing. Close monitoring daily given holding bumex likely potassium will increase (17) Hypothyroidism: continue home meds Takes 275mcg every day except 200mcg on W/Sa Mildly TSH, recommend repeating in 4-6 weeks when well (18) Bilateral pulmonary embolism: Remote event INR 2.0 today. Continue home dose. PTINR daily (19) DVT prophylaxis: Therapeutic on warfarin Full Code Dispo - PT/OT as patient near medically stable but does not feel she can return home as she needs to look after her . Subjective Unable to wear CPAP overnight as burning her nose however uses this at home without issues. Continues on 2L O2 at rest, does not feel she is back to her baseline. She is the main caregiver for her and is concerned about whether she will be able to go home to look after him. Feels she needs to stay till to build her strength back up. Discussed rehabilitation but not keen on this option. Review of Systems Review of Systems: All systems reviewed & are unremarkable except as noted in HPI & below Physical Exam Constitutional: well developed and + morbidly obese; not in distress Eyes: PERRL ENMT: external ear and nose normal, oropharynx normal Neck: trachea midline, no thyromegaly Respiratory: normal respiratory effort; no respiratory distress, no labored breathing and does not use accessory muscles Auscultation: + breath sounds absent (Bibasal); no crackles, no rales, no rhonchi and no wheezes Cardiovascular: Rate/Rhythm: regular rate and regular rhythm Heart Sounds: normal S1 and normal S2 Vessels: no JVD Extremities: normal capillary refill and + edema (2+, bilateral knees, chronic venous dermatitis) Gastrointestinal (Abdomen): Inspection/Auscultation: abdomen normal to inspection; abdomen not distended Percussion/Palpation: abdomen soft; abdomen nontender and no guarding Musculoskeletal: no cyanosis or clubbing, extremities motor strength 5/5 Skin: no rashes, warm and dry Neurologic: PERRL, EOMI, accommodation nl, no face palsy, no dysarthria Psychiatric: A+Ox3, euthymic affect Results & Data Vital Signs (Past 12 Hours) Vital Signs Temp Pulse Pulse Resp BP Pulse Ox 02/17/19 04:38 98.2 F 73 20 138/66 95 02/17/19 02:40 77 16 96 02/17/19 01:00 75 02/16/19 23:06 98.4 F 80 20 138/71 96 02/16/19 23:02 76 16 97 02/16/19 20:01 97.7 F 76 20 152/66 H 95 02/16/19 19:41 80 20 95 PG Care Time/CCT Total # of Minutes Spent Total Time Spent with Patient: Total time spent is greater than 50% in coordination of care (as documented) at patient's floor/unit and/or counseling patient: (1) Depression Depression Type: major depressive disorder (2) Hypothyroidism Hypothyroidism type: unspecified Qualified Code(s): E03.9 - Hypothyroidism, unspecified (3) GERD (gastroesophageal reflux disease) Esophagitis presence: esophagitis presence not specified Qualified Code(s): K21.9 - Gastro-esophageal reflux disease without esophagitis (4) Diabetic nephropathy Diabetes mellitus type: type 2 Qualified Code(s): E11.21 - Type 2 diabetes mellitus with diabetic nephropathy (5) Hypertension Hypertension type: essential hypertension Qualified Code(s): I10 - Essential (primary) hypertension
[2019-02-17] MEDS ORDERED: predniSONE 20 MG TAB PO SCH (09:00)
[2019-02-17] MEDS: DOCUSATE SODIUM 100 MG CAP PO SCH ×2 (10:11→20:24)
[2019-02-17] MEDS: POTASSIUM CHLORIDE 20 MEQ TABCR PO SCH ×2 (10:12→20:25)
[2019-02-17] MEDS: INSULIN GLARGINE 100 UNIT/ML VIAL SQ SCH ×2 (10:13→20:31)
[2019-02-17] MEDS: ESCITALOPRAM OXALATE 10 MG TAB PO SCH (10:13)
[2019-02-17] MEDS: MICONAZOLE NITRATE POWDER 43 GM EXT PRN (10:14)
[2019-02-17] MEDS: NYSTATIN POWDER 15GM BTL EXT SCH ×2 (10:14→20:26)
[2019-02-17] MEDS: LABETALOL HCL 200 MG TAB PO SCH ×2 (10:14→20:30)
[2019-02-17] MEDS: CHOLECALCIFEROL 1,000 UNITS TAB PO SCH (10:16)
[2019-02-17] MEDS: PANTOprazole 40 MG TAB PO SCH (10:16)
[2019-02-17] MEDS: SERTRALINE HCL 50 MG TABLET PO SCH (10:17)
[2019-02-17] MEDS: CYANOCOBALAMIN 500 MCG TABLET (VITAMIN B-12) PO SCH (10:18)
[2019-02-17] MEDS: INSULIN ASPART 100 UNITS/ML 3 ML PEN SC SCH ×5 (10:20→20:28)
[2019-02-17] MEDS ORDERED: predniSONE 10 MG TABLET PO ONE (14:00)
[2019-02-17] MEDS: WARFARIN SOD 5 MG TAB PO SCH (16:33)
[2019-02-17] MEDS: ROPINIROLE HCL 0.25 MG TABLET PO SCH (20:26)
[2019-02-17] MEDS: SIMVASTATIN 20 MG TAB PO SCH (20:27)
[2019-02-17] MEDS: ASPIRIN 81 MG ECTAB PO SCH (20:30)
[2019-02-17] MEDS ORDERED: DULERA INH SCH (21:00)
[2019-02-18] MEDS: ALBUT/IPRATROP 3MG/0.5MG NEB 3 ML VIAL NEB SCH ×6 (03:11→23:18)
[2019-02-18] MEDS: LEVOTHYROXINE SODIUM 200 MCG TABLET PO SCH (06:21)
[2019-02-18 06:52] LABS: Basophils # (auto) 0.01 K/uL (0-0.2); Basophils % (auto) 0.1 %; Eosinophils # (auto) 0.15 K/uL (0-0.5); Eosinophils % (auto) 1.6 %; Hematocrit (blood only) 33.3 % (37-47); Hemoglobin 10.4 g/dL (12.0-16.0); Immature Granulocytes # (auto) 0.01 K/uL (0.00-0.02); Immature Granulocytes % (auto) 0.1 %; Lymphocytes # (auto) 1.55 K/uL (1.2-3.4); Lymphocytes % (auto) 16.5 %; Mean Corpuscular Hemoglobin 26.3 pg (25-34); Mean Corpuscular Hgb Conc 31.2 g/dL (32-36); Mean Corpuscular Volume 84.1 fL (80-100); Mean Platelet Volume 10.7 fL (7.4-10.4); Monocytes # (auto) 0.94 K/uL (0.11-0.59); Neutrophils # (auto) 6.71 K/uL (1.4-6.5); Neutrophils % (auto) 71.7 %; Platelet Count 280 K/uL (130-400); RDW Coefficient of Variation 16.5 % (11.5-14.5); RDW Standard Deviation 50.6 fL (36.4-46.3); Red Blood Count 3.96 M/uL (4.2-5.4); White Blood Count 9.37 K/uL (4.8-10.8)
[2019-02-18 07:03] LABS: INR 2.1 (0.9-1.1); Prothrombin Time 20.5 Seconds (9.0-12.0)
[2019-02-18 07:27] LABS: BUN Creatinine Ratio 31.7 (10-20); Creatinine Clr Calc Pharmacy 45.7 ml/min; Est GFR (African American) 35.1; Est GFR (Non-African American) 30.3; Potassium 3.8 mmol/L (3.5-5.1)
[2019-02-18] MEDS: DOCUSATE SODIUM 100 MG CAP PO SCH ×2 (09:23→20:20)
[2019-02-18] MEDS: CHOLECALCIFEROL 1,000 UNITS TAB PO SCH (09:24)
[2019-02-18] MEDS: CYANOCOBALAMIN 500 MCG TABLET (VITAMIN B-12) PO SCH (09:25)
[2019-02-18] MEDS: PANTOprazole 40 MG TAB PO SCH (09:25)
[2019-02-18] MEDS: LABETALOL HCL 200 MG TAB PO SCH ×2 (09:26→20:20)
[2019-02-18] MEDS: ESCITALOPRAM OXALATE 10 MG TAB PO SCH (09:26)
[2019-02-18] MEDS: SERTRALINE HCL 50 MG TABLET PO SCH (09:27)
[2019-02-18] MEDS: POTASSIUM CHLORIDE 20 MEQ TABCR PO SCH ×2 (09:28→20:19)
[2019-02-18] MEDS: INSULIN ASPART 100 UNITS/ML 3 ML PEN SC SCH ×4 (09:31→20:20)
[2019-02-18] MEDS: INSULIN GLARGINE 100 UNIT/ML VIAL SQ SCH ×2 (09:32→20:17)
[2019-02-18] MEDS: NYSTATIN POWDER 15GM BTL EXT SCH ×2 (09:33→20:20)
[2019-02-18] MEDS: predniSONE 10 MG TABLET PO SCH (10:04)
[2019-02-18] MEDS: WARFARIN SOD 2.5 MG TAB PO SCH (15:20)
--- NOTE | 2019-02-18 15:23 | Hospitalist Progress Note ---
Date of Service February 18, 2019 Assessment & Plan (1) Hypoxia: Resolved now off O2 (2) COPD exacerbation: Mixed obstructive and restrictive ventilatory disease on PFTs 08/2018. Severe obstructive ventilatory disease with moderate bronchodilator response and lifelong non-smoker but significant second hand smoke exposure. No wheezing on exam but given lack of clear etiology for hypoxia and improvement with steroids will continue steroids for short duration (5 days) @ 30mg. Continue PO prednisone 30mg PO daily (lower dose due to hypoglycemia). Pt to bring in Dulera from home. (3) Obesity hypoventilation syndrome: Contributory towards PNA (4) Obstructive sleep apnea: CPAP @ night as able. (5) Systolic murmur: Echo without significant valvular disease (6) Peripheral edema: Suspect mostly venous insufficiency, Hx prior DVT. Likely some right sided failure related to SHELIA, PE Hx and obesity hypoventilation. BNP unremarkable making CHF diagnosis unclear. No JVD visible with neck size. Will continue to hold bumex in light of elevated BUN. Weight stable 327/8 lb. Positive I&Os balance 20ml but x2 unmeasured voids. Repeat echo pending. BETTY tapia (7) Restless leg syndrome: continue home meds (8) Hyperlipidemia: continue home meds (9) Hypertension: continue home meds (10) Depression: continue home meds (11) Diabetic nephropathy: continue home meds (12) 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, with long- term current use of insulin: Improved control with increase bolus regimen. Lantus to 50 units BID and carb coverage 5->4g, correction 15->10 A1c 7.4 (13) CKD (chronic kidney disease) stage 4, GFR 15-29 ml/min: Cr improved to baseline holding bumex. Continuing to hold bumex given elevated BUN. (14) GERD (gastroesophageal reflux disease): continue home meds (15) Hypokalemia: continue home meds Recent increase to BID dosing. Close monitoring daily given holding bumex likely potassium will increase (16) Hypothyroidism: continue home meds Takes 275mcg every day except 200mcg on W/Sa Mildly TSH, recommend repeating in 4-6 weeks when well (17) Bilateral pulmonary embolism: Remote event INR 2.0 today. Continue home dose. PTINR daily (18) DVT prophylaxis: Therapeutic on warfarin Full Code Dispo - PT/OT as patient near medically stable but does not feel she can return home as she needs to look after her . Subjective No acute events overnight. Does not feel she is able to cope at home with current shortness of breath. She is the main caregiver for her and is concerned about whether she will be able to go home to look after him. Review of Systems Review of Systems: All systems reviewed & are unremarkable except as noted in HPI & below Pertinent positives and negatives reviewed in HPI--all others negative Physical Exam Constitutional: well developed and + morbidly obese; not in distress Eyes: PERRL ENMT: external ear and nose normal, oropharynx normal Neck: trachea midline, no thyromegaly Respiratory: normal respiratory effort; no respiratory distress, no labored breathing and does not use accessory muscles Auscultation: + breath sounds absent (Bibasal); no crackles, no rales, no rhonchi and no wheezes Cardiovascular: Rate/Rhythm: regular rate and regular rhythm Heart Sounds: normal S1 and normal S2 Vessels: no JVD Extremities: normal capillary refill and + edema (2+, bilateral knees, chronic venous dermatitis) Gastrointestinal (Abdomen): Inspection/Auscultation: abdomen normal to inspection; abdomen not distended Percussion/Palpation: abdomen soft; abdomen nontender and no guarding Musculoskeletal: no cyanosis or clubbing, extremities motor strength 5/5 Skin: no rashes, warm and dry Neurologic: PERRL, EOMI, accommodation nl, no face palsy, no dysarthria Psychiatric: A+Ox3, euthymic affect Results & Data Vital Signs (Past 12 Hours) Vital Signs Temp Pulse Resp BP Pulse Ox 02/18/19 15:08 97.5 F L 67 21 131/73 93 02/18/19 11:19 82 16 94 02/18/19 11:18 98.2 F 65 22 134/66 94 02/18/19 07:48 97.9 F 77 23 146/66 H 95 02/18/19 07:02 64 18 93 PG Care Time/CCT Total # of Minutes Spent Total Time Spent with Patient: Total time spent is greater than 50% in coordination of care (as documented) at patient's floor/unit and/or counseling patient: (1) Depression Depression Type: major depressive disorder (2) Hypothyroidism Hypothyroidism type: unspecified Qualified Code(s): E03.9 - Hypothyroidism, unspecified (3) GERD (gastroesophageal reflux disease) Esophagitis presence: esophagitis presence not specified Qualified Code(s): K21.9 - Gastro-esophageal reflux disease without esophagitis (4) Diabetic nephropathy Diabetes mellitus type: type 2 Qualified Code(s): E11.21 - Type 2 diabetes mellitus with diabetic nephropathy (5) Hypertension Hypertension type: essential hypertension Qualified Code(s): I10 - Essential (primary) hypertension
[2019-02-18] MEDS: SIMVASTATIN 20 MG TAB PO SCH (20:20)
[2019-02-18] MEDS: ROPINIROLE HCL 0.25 MG TABLET PO SCH (20:20)
[2019-02-18] MEDS: ASPIRIN 81 MG ECTAB PO SCH (20:20)
[2019-02-19] MEDS: ALBUT/IPRATROP 3MG/0.5MG NEB 3 ML VIAL NEB SCH ×4 (04:56→15:26)
[2019-02-19] MEDS: LEVOTHYROXINE SODIUM 75 MCG TABLET PO SCH (06:06)
[2019-02-19] MEDS: LEVOTHYROXINE SODIUM 200 MCG TABLET PO SCH (06:06)
[2019-02-19 06:27] LABS: INR 2.3 (0.9-1.1); Prothrombin Time 22.3 Seconds (9.0-12.0)
[2019-02-19 06:44] LABS: BUN Creatinine Ratio 28.7 (10-20); Calcium 9.1 mg/dl (8.5-10.1); Creatinine Clr Calc Pharmacy 48.9 ml/min; Est GFR (African American) 38.4; Est GFR (Non-African American) 33.1; Potassium 3.7 mmol/L (3.5-5.1)
[2019-02-19] MEDS: DOCUSATE SODIUM 100 MG CAP PO SCH (07:55)
[2019-02-19] MEDS: CYANOCOBALAMIN 500 MCG TABLET (VITAMIN B-12) PO SCH (07:57)
[2019-02-19] MEDS: predniSONE 10 MG TABLET PO SCH (07:58)
[2019-02-19] MEDS: CHOLECALCIFEROL 1,000 UNITS TAB PO SCH (07:58)
[2019-02-19] MEDS: PANTOprazole 40 MG TAB PO SCH (07:58)
[2019-02-19] MEDS: LABETALOL HCL 200 MG TAB PO SCH (07:59)
[2019-02-19] MEDS: SERTRALINE HCL 50 MG TABLET PO SCH (08:02)
[2019-02-19] MEDS: ESCITALOPRAM OXALATE 10 MG TAB PO SCH (08:03)
[2019-02-19] MEDS: POTASSIUM CHLORIDE 20 MEQ TABCR PO SCH (08:03)
[2019-02-19] MEDS: NYSTATIN POWDER 15GM BTL EXT SCH (08:05)
[2019-02-19] MEDS: INSULIN GLARGINE 100 UNIT/ML VIAL SQ SCH (08:06)
[2019-02-19] MEDS: INSULIN ASPART 100 UNITS/ML 3 ML PEN SC SCH ×2 (08:08→12:36)
[2019-02-19] MEDS: WARFARIN SOD 5 MG TAB PO SCH (15:10)
--- NOTE | 2019-02-19 15:33 | Discharge Summary ---
Date of Service February 19, 2019 Admission HPI Per Admitting Provider 73 y/o F c/o SOB. Pt states this started earlier in the week. It was initially with walking longer distances, but it has worsened over the last few days and starting yesterday she was SOB just walking to the bathroom. It gets better with rest, but today she was SOB at rest even. She always has LE swelling, but it is increased today and daughter notes some blisters that are new. She always has LE redness and this is at baseline. She had a slight L sided chest pain x1 yesterday, but it is more persistent today. She has been eating without issue. Pt denies fever, abd pain, n/v/c/d. Pt has RLS at baseline and states that the pain in her LE is much worse today than usual. Pt states she is feeling somewhat improved s/p O2, nebs, bumex in the ED. Discharge Data Allergies Allergy/AdvReac Type Severity Reaction Status Date / Time ibuprofen Allergy Intermediate HIVES Verified 02/15/19 11:14 lisinopril AdvReac Mild COUGH Verified 02/15/19 11:14 pramipexole AdvReac Verified 02/15/19 11:14 zolpidem AdvReac drowsinesss Verified 02/15/19 11:14 Consultations 02/15/19 12:29 ED Decision to Admit Stat Hospital Course (1) Hypoxia: Initially on nasal cannula but weaned onto room air. (2) COPD exacerbation: Mixed obstructive and restrictive ventilatory disease on PFTs 08/2018. Severe obstructive ventilatory disease with moderate bronchodilator response and lifelong non-smoker but significant second hand smoke exposure. No wheezing on exam but improvement with steroids and duo nebs. Patient will continue on tapering dose of prednisone on discharge. Continue on maintenance dose Dulera. I am unclear why she is not on a long-acting muscarinic antagonist (3) Obesity hypoventilation syndrome: Contributory towards hypoxia. Discussed diet and exercise changes. (4) Obstructive sleep apnea: CPAP @ night as able, appears to do better with this at home. (5) Systolic murmur: Echo without significant valvular disease. Murmur likely physiological as appears resolved on discharge exam. (6) Peripheral edema: Suspect mostly venous insufficiency, Hx prior DVT. Likely some right sided failure related to SHELIA, PE Hx and obesity hypoventilation. BNP unremarkable making CHF diagnosis unclear. No JVD visible with neck size. Held bumex throughout since given in ER with no worsening pulmonary edema on exam, weight stable, no worsening leg edema. LVEF normal on echocardiogram. Bumex discontinued with close follow up in heart failure clinic in case starts developing heart failure but as per prior notes this appears to be mostly started due to leg edema and her renal function gets much worse on bumex. Continue compression stockings. (7) 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, with long- term current use of insulin: A1c 7.4. Hypoglycemic episodes while here despite prednisone use. No change to home insulin regimen but advised patient to call PCP regarding dosing if she continues to get hypoglycemic events but suspect with her diet at home she will no longer have these. (8) Hypokalemia: Stopped bumex and continued potassium supplementation. Therefore will need to monitor for hyperkalemia as outpatient but appears stable. (9) Hypothyroidism: continue home meds Takes 275mcg every day except 200mcg on W/Sa Mildly TSH, recommend repeating in 4-6 weeks when well (10) Stage III chronic kidney disease: based on most recent labs she has CKD stage 3 now off bumex. Suspect her diuretics were making her intr-vascularly deplete causing pre-renal rise in Cr. (11) DVT prophylaxis: Therapeutic on warfarin Full Code Dispo - Home with home services. Cleared by PT/OT. Discharge Plan Discharge Items Patient Disposition: Home - Home Health Services Reason For Visit: COPF/CHF EXACERBATION Discharge Diagnosis: COPD/asthma exacerbation Hyperglycemia Elevated creatinine Leg edema Condition on Discharge: Fair Activity: Per Instructions section Lifting: Gradually increase as tolerated Exercise/Sports: Gradually increase as tolerated Weightbearing: Full weightbearing Non-emergency contact: Primary Care Provider and Corporate Staff Accountant Call non-emergency contact if: you have any medication questions and your symptoms worsen Follow-up/Referrals: Jorge Barney MD [Primary Care Provider] - 02/25/19 11:30 am (Please, follow up with Dr. Jean Baptiste on SaturdayFebruary 25 at 11:30 am. *If you need to change this appointment, call the office at [phone].) Leslie Ortega PA-C [Physician Seismographer] - 09/23/19 9:45 am (Please, follow up at [facility] Office with Carmen Ortega PA-C on SaturdayFebruary 23 at 9:45 am. *If you need to change this appointment, call the office at [phone].) Diet: Carb Consistent or DM2 Addtl Attending Provider Instructions: He was diagnosed with COPD exacerbation with hypoxia. This was treated with prednisone, recommend continuing a tapered course of this due to severity of the exacerbation and prolonged hospital stay. Continue on Dulera. Continue on albuterol/levalbuterol inhaler 2 puffs 4 times a day for the next 2 days then as needed. In addition to above, on the last 2 days of admission you have had low glucose levels while taking a reduced dose of insulin compared to your home dose. This is likely due to a lower carbohydrate diets while in hospital bed for your outpatient insulin regimen has not been adjusted. If you feel dizzy at time recommend taking your glucose level and if you have continued hypoglycemic even ts please call your primary care provider immediately for insulin adjustments. You have a prior diagnosis of congestive heart failure however increased Bumex on admission caused worsening renal function. You have now been off Bumex for 3 days without worsening pulmonary edema, increased weight or even worsening leg swelling. Suspect her leg swelling is mostly venous insufficiency and recommend continuing compression stockings for this. Your Bumex dose has been discontinued and recommend following up in heart failure clinic regarding this - appointment as above. Recommend continuing to take daily weights and if your weight increases by more than 3 pounds over 1 day please call the heart failure clinic number above. Continue to take warfarin as prescribed this is been well controlled while here. Pending Studies at Discharge: No Stand-Alone Forms: My [facility] Medications and DC Order Prescriptions: New prednisone 10 mg Tablet See Rx Instructions .ROUTE .COMPLEX Qty: 18 RF: 0 Continued mometasone-formoterol [Dulera] 200-5 mcg/actuation HFA aerosol inhaler 2 puffs INH BID RF: 0 levalbuterol HCl [Xopenex] 0.63 mg/3 mL solution for nebulization 0.63 mg INH Q6H PRN (Reason: Shortness Of Breath) RF: 0 acetaminophen [Tylenol 8 Hour] 650 mg tablet extended release 650 mg PO DAILY PRN (Reason: Pain) RF: 0 labetalol 200 mg Tablet 800 mg PO BID Qty: 0 RF: 0 cyanocobalamin (vitamin B-12) [Vitamin B-12] 1,000 mcg Tablet 1,000 mcg PO QAM Qty: 0 RF: 0 aspirin [Aspirin Low Dose] 81 mg Tablet,Delayed Release (Dr/Ec) 81 mg PO HS Qty: 0 RF: 0 levothyroxine [Synthroid] 75 mcg Tablet 75 mcg PO DIRECTED Qty: 0 RF: 0 omeprazole 20 mg Capsule,Delayed Release(Dr/Ec) 20 mg PO QAM Qty: 0 RF: 0 cholecalciferol (vitamin D3) [Vitamin D3] 1,000 unit Tablet 3,000 unit PO QAM Qty: 0 RF: 0 levothyroxine [Synthroid] 200 mcg tablet 200 mcg PO QAM Qty: 90 RF: 3 ropinirole 0.5 mg tablet 1 mg PO HS 30 Days Qty: 60 RF: 5 simvastatin 20 mg tablet 20 mg PO PM Qty: 90 RF: 1 diclofenac sodium [Voltaren] 1 % gel 2 gm Topical BID PRN (Reason: SHOULDERS) Qty: 100 RF: 0 potassium chloride [Klor-Con M20] 20 mEq tablet,ER particles/crystals 20 meq PO BID Qty: 180 RF: 3 docusate sodium 100 mg capsule 100 mg PO BID RF: 0 nystatin 100,000 unit/gram powder 1 appln topical BID Qty: 1 RF: 0 Vortex Holding Chamber spacer .ROUTE .MEDSUPPLY Qty: 1 RF: 0 escitalopram oxalate 10 mg tablet 10 mg PO DAILY Qty: 30 RF: 2 Novolin R Regular U-100 Insuln 100 unit/mL Solution 20 unit SUBCUT QDL RF: 0 melatonin 10 mg Tablet 10 mg PO HS PRN (Reason: Sleep) RF: 0 Basaglar KwikPen U-100 Insulin 100 unit/mL (3 mL) insulin pen 100 unit subcut QPM RF: 0 warfarin 2 mg tablet 5 mg PO 4XWK RF: 0 warfarin 1 mg tablet 2.5 mg PO 3XWK RF: 0 albuterol sulfate [Ventolin HFA] 90 mcg/actuation Hfa Aerosol Inhaler 2 puff INHALATION Q4H PRN (Reason: Shortness Of Breath) RF: 0 sertraline 50 mg tablet 75 mg PO DAILY RF: 0 Discontinued insulin NPH isoph U-100 human [Novolin N NPH U-100 Insulin] 100 unit/mL suspension 40 units SC BIDM Qty: 0 RF: 0 bumetanide 2 mg tablet 2 mg PO BID Qty: 180 RF: 1 Discharge Orders: Discharge Order (Routine); Ordered 02/19/19 Ordered By: Elia Epps Admission Data Admit Date/Time: 02/15/19 13:37 Attending Provider: Elia Epps Admit Provider: Carmen Noguera Primary Care Provider: Jorge Barney V. Other Providers: Carmen Noguera
[2019-02-19] MEDS ORDERED: INSULIN GLARGINE 100 UNIT/ML VIAL SQ SCH (21:00)
== END 2019-02-19 17:27 | disposition home health service (06) | DRG 191 ==
LOC: ED 10:28 → 2N 13:37 → SUATTDRO 13:37 → 2N 15:25

== ENCOUNTER 2019-07-27 00:43 | Inpatient (IN) ==
[2019-07-27] MEDS ORDERED: ALBUT/IPRATROP 3MG/0.5MG NEB 3 ML VIAL NEB ONE (01:01)
[2019-07-27 01:22] LABS: Basophils # (auto) 0.01 K/uL (0-0.2); Basophils % (auto) 0.1 %; Eosinophils # (auto) 0.32 K/uL (0-0.5); Eosinophils % (auto) 4.1 %; Hematocrit (blood only) 33.1 % (37-47); Hemoglobin 10.4 g/dL (12.0-16.0); Immature Granulocytes # (auto) 0.02 K/uL (0.00-0.02); Immature Granulocytes % (auto) 0.3 %; Lymphocytes # (auto) 1.26 K/uL (1.2-3.4); Lymphocytes % (auto) 16.3 %; Mean Corpuscular Hemoglobin 26.5 pg (25-34); Mean Corpuscular Hgb Conc 31.4 g/dL (32-36); Mean Corpuscular Volume 84.4 fL (80-100); Mean Platelet Volume 10.2 fL (7.4-10.4); Monocytes % (auto) 10.3 %; Neutrophils # (auto) 5.32 K/uL (1.4-6.5); Neutrophils % (auto) 68.9 %; Platelet Count 280 K/uL (130-400); RDW Coefficient of Variation 16.2 % (11.5-14.5); RDW Standard Deviation 49.4 fL (36.4-46.3); Red Blood Count 3.92 M/uL (4.2-5.4); White Blood Count 7.73 K/uL (4.8-10.8)
[2019-07-27 01:41] LABS: Alanine Aminotransferase 22 U/L (12-78); Albumin Level 3.1 gm/dl (3.4-5.0); Aspartate Aminotransferase 17 U/L (15-37); BUN Creatinine Ratio 22.5 (10-20); Blood Urea Nitrogen 35 mg/dl (7-18); Carbon Dioxide 27 mmol/L (21-32); Chloride 112 mmol/L (98-107); Est GFR (African American) 37.8; Est GFR (Non-African American) 32.6; Glucose 104 mg/dl (70-99); Magnesium 1.8 mg/dl (1.8-2.4); Potassium 3.8 mmol/L (3.5-5.1); Sodium 143 mmol/L (136-145)
[2019-07-27 01:46] LABS: Alkaline Phosphatase 79 U/L (45-117); Bilirubin Direct < 0.1 mg/dl (0-0.2); Bilirubin,Total 0.4 mg/dl (0.2-1); NT Pro B Type Natriuretic Pept 1623 pg/ml (0-900); Total Protein 6.9 gm/dl (6.4-8.2); Troponin I < 0.015 ng/ml (0-0.045)
[2019-07-27 02:10] LABS: Influenza A virus by PCR Neg for Influ A (Neg); Influenza B virus by PCR Neg for Influ B (Neg)
[2019-07-27 02:10] LABS: INR 1.7 (0.9-1.1); Partial Thromboplastin Ratio 1.6; Partial Thromboplastin Time 43.9 Seconds (21.0-31.0); Prothrombin Time 16.6 Seconds (9.0-12.0)
[2019-07-27] MEDS ORDERED: methylPREDNISolone 125 MG/2 ML VIAL IV STA (02:11)
[2019-07-27] MEDS ORDERED: FUROSEMIDE 40 MG/4 ML VIAL IV STA (02:12)
--- NOTE | 2019-07-27 03:38 | History & Physical Report ---
Date of Service July 27, 2019 Assessment & Plan (1) COPD exacerbation: Change leave albuterol from 0.63 mg/3 mL PRN to 1.25 mg scheduled every 6 hours while awake and every 2 hours as needed. Placed on Pulmicort Respules 0.5 mg inhaled twice daily. Antibiotics as below will cover any secondary infections Present on Admission?: Yes (2) Necrobiosis lipoidica diabeticorum: Necrobiosis lipoidica diabeticorum/chronic venous insufficiency/cellulitis of bilateral lower extremities- Placed on daptomycin IV and Zosyn IV. Blood pressure is too low to promote any aggressive diuresis. Would likely benefit from Unna boots bilaterally. Consult wound care Present on Admission?: Yes (3) Chronic venous insufficiency: See above Present on Admission?: Yes (4) Cellulitis of both lower extremities: See above Present on Admission?: Yes (5) Obesity hypoventilation syndrome: Obesity hypoventilation syndrome/SHELIA- CPAP to use at bedtime Present on Admission?: Yes (6) Hyperlipidemia: Continue simvastatin 20 mg every morning Present on Admission?: Yes (7) Depression: Continue Escitalopram 10 mg daily Present on Admission?: Yes (8) CHF NYHA class III: Patient is showing some mild fluid overload and lower extremity edema, however, systolic blood pressures in the low 90s, and she would not tolerate more aggressive diuresis at this time. We will decrease blood pressure medications somewhat, to allow mild blood pressure rise, to allow more aggressive diuresis. Decrease labetalol from 800 to 400 mg p.o. twice daily. Present on Admission?: Yes (9) Hypertension: As noted above Present on Admission?: Yes (10) Restless leg syndrome: Continue ropinirole 1 mg p.o. at bedtime Present on Admission?: Yes (11) GERD (gastroesophageal reflux disease): Change omeprazole to pantoprazole. Present on Admission?: Yes (12) Chronic kidney disease, stage III (moderate): Creatinine 1.57 upon admission, with range 1.52-2.09 Follow serially Present on Admission?: Yes (13) Bilateral pulmonary embolism: Continue warfarin, and follow serial PT/INR Present on Admission?: Yes (14) Hypothyroidism: Continue levothyroxine sodium 25 mcg daily Present on Admission?: Yes History of Present Illness Chief Complaint: The patient presents to the emergency department with generalized fatigue and shortness of breath. Primary Care Provider: Jorge Barney MD The patient is a 73-year-old female with a past medical history including CKD stage III, CVI, cervical disc disease, venous stasis ulcerations, obesity hypoventilation syndrome, hyperlipidemia, hypertension, CHF NYHA class III, depression, diabetic nephropathy, gait disturbance, mild mitral stenosis, mitral regurgitation, nonproliferative diabetic retinopathy, obstructive sleep apnea, uncontrolled diabetes mellitus with kidney complication, restless leg syndrome, depression, GERD, anemia, vitamin D deficiency, hypothyroidism and bilateral pulmonary embolism. She presents to the emergency department with progressively worsening generalized fatigue, and shortness of breath. Allergies Allergy/AdvReac Type Severity Reaction Status Date / Time ibuprofen Allergy Intermediate HIVES Verified 07/27/19 02:09 lisinopril AdvReac Mild COUGH Verified 07/27/19 02:09 pramipexole AdvReac Unknown Verified 07/27/19 02:09 zolpidem AdvReac drowsinesss Verified 07/27/19 02:09 Home Medications Home Medications Medication Instructions Recorded Confirmed Type aspirin [Aspirin Low Dose] 81 mg PO HS #0 07/25/17 07/27/19 History cholecalciferol (vitamin D3) 3,000 unit PO QAM #0 tab 07/25/17 07/27/19 History [Vitamin D3] cyanocobalamin (vitamin B-12) 1,000 mcg PO QAM #0 tab 07/25/17 07/27/19 History [Vitamin B-12] omeprazole 20 mg PO QAM #0 cap 07/25/17 07/27/19 History potassium chloride 20 mEq 20 meq PO BID #180 tab 02/13/19 07/27/19 Rx tablet,extended release(part/cryst) Basaglar KwikPen U-100 Insulin 100 unit SUBCUT QPM 02/15/19 07/27/19 History insulin aspart U-100 100 unit/mL See Rx Instructions SQ .COMPLEX ml 03/09/19 07/27/19 History (3 mL) subcutaneous pen levothyroxine 200 mcg tablet 200 mcg PO QAM 03/09/19 07/27/19 History melatonin 10 mg capsule 10 mg PO HS PRN 03/09/19 07/27/19 History metolazone 2.5 mg tablet 2.5 mg PO DAILY PRN #15 tab 03/12/19 07/27/19 Rx levothyroxine 75 mcg PO QAM 03/26/19 07/27/19 History acetaminophen 500 mg capsule 500 mg PO Q6H PRN 04/06/19 07/27/19 History labetalol 200 mg tablet 800 mg PO BID #720 tab 04/07/19 07/27/19 Rx escitalopram oxalate 10 mg tablet 10 mg PO DAILY #30 tab 04/17/19 07/27/19 Rx cyclobenzaprine 5 mg tablet 5 mg PO HS PRN #30 tab 04/20/19 07/27/19 Rx fluticasone furoate 200 1 puffs INH DAILY #60 ea 04/20/19 07/27/19 Rx mcg-vilanterol 25 mcg/dose inhalation powder blood sugar diagnostic See Rx Instructions .ROUTE 05/08/19 07/27/19 Rx .COMPLEX #350 strip albuterol sulfate 90 mcg/actuation 2 puff INHALATION Q4H PRN #18 gm 06/15/19 07/27/19 Rx aerosol inhaler ferrous sulfate 325 mg (65 mg 325 mg PO DAILY 06/15/19 07/27/19 History iron) tablet levalbuterol HCl 0.63 mg/3 mL 0.63 mg INH Q6H PRN #36 ml 06/15/19 07/27/19 Rx solution for nebulization bumetanide 2 mg tablet 4 mg PO .COMPLEX #90 tab 06/29/19 07/27/19 Rx diclofenac sodium 1 % topical gel 2 gm TOPICAL BID PRN #100 gm 07/02/19 07/27/19 Rx warfarin 5 mg tablet See Rx Instructions PO UD 90 Days 07/20/19 07/27/19 Rx #70 tab simvastatin 20 mg tablet 20 mg PO PM #90 tab 07/23/19 07/27/19 Rx ropinirole 1 mg PO HS 07/27/19 07/27/19 History Past Med/Surg History Medical History Acute and chronic respiratory failure (Inactive) Anemia Arthritis (Acute) CHF (congestive heart failure) (Chronic) Chronic GERD (Chronic) Chronic kidney disease, stage III (moderate) COPD (chronic obstructive pulmonary disease) (Chronic) COPD (chronic obstructive pulmonary disease) COPD exacerbation (Inactive) Depression (Chronic) Diabetes (Resolved) Diabetic neuropathy (Chronic) Hemorrhoids (Chronic) HTN (hypertension) (Chronic) Hyperlipidemia (Chronic) Hypothyroidism (Chronic) Left bundle branch block (Chronic) Lymphedema (Chronic) Mild mitral stenosis (Chronic) Mitral regurgitation (Chronic) Morbid obesity (Chronic) SHELIA on CPAP (Chronic) Osteopenia (Chronic) Restless leg syndrome (Chronic) Stage III chronic kidney disease (Chronic) Stage III chronic kidney disease (Inactive) Urinary incontinence (Chronic) Venous insufficiency (Chronic) Vitamin D deficiency Vulvar cyst (Chronic) Vulvovaginitis (Chronic) Surgical History History of cholecystectomy History of hysterectomy Family History Mother Diabetes Colon cancer Denies family history of Ovarian cancer Prostate cancer Myocardial infarction Breast cancer Social History Preferred Language: Ukrainian Communication Ability: Effective Visual Impairment: No Limitations 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 Beliefs That Will Affect Care: None marital status: Current Living Situation: Spouse Current Living Situation Comment: [facility] Other Information That Helps Us Care for You: No Feels Safe at Home: Yes Safety Concerns: Feels Safe At This Time Smoking Status: Unknown if ever smoked Hx Alcohol Use: No Hx Substance Use: No Seatbelt Use: always Review of Systems Review of Systems: The patient denies chest pain, palpitations, sore throat, fevers, chills, sweats, weight change, nausea, vomiting, diarrhea , constipation, abdominal pain, pelvic pain, blood in urine or stool, dysuria, urinary frequency or urgency, memory loss, loss of consciousness, rash, abnormal bruising or bleeding, focal weakness, numbness or tingling in arms or legs, generalized arthralgias or myalgias, back or neck pain, or night sweats. The review of systems is otherwise negative other than for that already noted above, and at least 10 systems have been reviewed. Physical Exam Physical Exam: The patient is awake, alert and oriented 3, normocephalic and atraumatic, lying in bed and in no acute distress. HEENT--PERRL, EOMI, mucous membranes and oropharynx dry. Neck--supple. No JVD. No bruits. Thyroid normal, trachea midline, no adenopathy. Heart--normal S1 and S2. No murmurs, rubs or gallops. Lungs--clear bilaterally, no respiratory distress, no accessory muscle use. Abdomen--normal bowel sounds and soft. Nontender. Nondistended. Obese. Moderately tympanitic. Extremities--chronic venous stasis changes, with 3+ bilateral pretibial and pedal pitting edema. Vacuoles throughout. Moderate erythema and warmth. Dermatologic--necrobiosis diabeticorum Neurologic--cranial nerves II through XII grossly intact. Rheumatologic--range of motion limited by body habitus Psychiatric--normal affect. Results & Data Vital Signs (Past 12 Hours) Vital Signs Temp Pulse Pulse Pulse Resp BP BP 07/27/19 02:42 73 22 93/47 L 07/27/19 01:53 62 22 115/59 L 07/27/19 01:16 63 23 07/27/19 01:00 69 26 H 139/68 07/27/19 00:47 97.7 F 72 19 144/66 H Pulse Ox 07/27/19 02:42 94 07/27/19 01:53 99 07/27/19 01:16 97 07/27/19 01:00 98 07/27/19 00:47 95 Laboratory Results Laboratory Results WBC 7.73 K/uL (4.8-10.8) 07/27/19 01:07 RBC 3.92 M/uL (4.2-5.4) L 07/27/19 01:07 Hgb 10.4 g/dL (12.0-16.0) L 07/27/19 01:07 Hct 33.1 % (37-47) L 07/27/19 01:07 MCV 84.4 fL (80-100) 07/27/19 01:07 MCH 26.5 pg (25-34) 07/27/19 01:07 MCHC 31.4 g/dL (32-36) L 07/27/19 01:07 RDW Std Deviation 49.4 fL (36.4-46.3) H 07/27/19 01:07 RDW Coeff of Joycelyn 16.2 % (11.5-14.5) H 07/27/19 01:07 Plt Count 280 K/uL (130-400) 07/27/19 01:07 MPV 10.2 fL (7.4-10.4) 07/27/19 01:07 Immature Gran % (Auto) 0.3 % 07/27/19 01:07 Neut % (Auto) 68.9 % 07/27/19 01:07 Lymph % (Auto) 16.3 % 07/27/19 01:07 Smyth % (Auto) 10.3 % 07/27/19 01:07 Eos % (Auto) 4.1 % 07/27/19 01:07 Baso % (Auto) 0.1 % 07/27/19 01:07 Immature Gran # (Auto) 0.02 K/uL (0.00-0.02) 07/27/19 01:07 Neut # (Auto) 5.32 K/uL (1.4-6.5) 07/27/19 01:07 Lymph # (Auto) 1.26 K/uL (1.2-3.4) 07/27/19 01:07 Smyth # (Auto) 0.80 K/uL (0.11-0.59) H 07/27/19 01:07 Eos # (Auto) 0.32 K/uL (0-0.5) 07/27/19 01:07 Baso # (Auto) 0.01 K/uL (0-0.2) 07/27/19 01:07 PT 16.6 Seconds (9.0-12.0) H 07/27/19 01:43 INR 1.7 (0.9-1.1) H 07/27/19 01:43 APTT 43.9 Seconds (21.0-31.0) H 07/27/19 01:43 PTT Ratio 1.6 07/27/19 01:43 Sodium 143 mmol/L (136-145) 07/27/19 01:07 Potassium 3.8 mmol/L (3.5-5.1) 07/27/19 01:07 Chloride 112 mmol/L (98-107) H 07/27/19 01:07 Carbon Dioxide 27 mmol/L (21-32) 07/27/19 01:07 Anion Gap 4.0 (3-11) 07/27/19 01:07 BUN 35 mg/dl (7-18) H 07/27/19 01:07 Creatinine 1.57 mg/dl (0.6-1.2) H 07/27/19 01:07 Est Cr Clr Drug Dosing Not Reportable 07/27/19 01:07 Est GFR ( Amer) 37.8 07/27/19 01:07 Est GFR (Non-Af Amer) 32.6 07/27/19 01:07 BUN/Creatinine Ratio 22.5 (10-20) H 07/27/19 01:07 Glucose 104 mg/dl (70-99) H 07/27/19 01:07 Calcium 9.0 mg/dl (8.5-10.1) 07/27/19 01:07 Magnesium 1.8 mg/dl (1.8-2.4) 07/27/19 01:07 Total Bilirubin 0.4 mg/dl (0.2-1) 07/27/19 01:07 Direct Bilirubin < 0.1 mg/dl (0-0.2) 07/27/19 01:07 AST 17 U/L (15-37) 07/27/19 01:07 ALT 22 U/L (12-78) 07/27/19 01:07 Alkaline Phosphatase 79 U/L (45-117) 07/27/19 01:07 Troponin I < 0.015 ng/ml (0-0.045) 07/27/19 01:07 NT-Pro-B Natriuret Pep 1623 pg/ml (0-900) H 07/27/19 01:07 Total Protein 6.9 gm/dl (6.4-8.2) 07/27/19 01:07 Albumin 3.1 gm/dl (3.4-5.0) L 07/27/19 01:07 Influenza Type A (PCR) Neg for Influ A (Neg) 07/27/19 01:07 Influenza Type B (PCR) Neg for Influ B (Neg) 07/27/19 01:07 Code Status & VTE Plan Code Status Full code VTE Prophylaxis Plan VTE Prophylaxis will be ordered: Yes PG Care Time/CCT Total # of Minutes Spent Total Time Spent with Patient: Total time spent is greater than 50% in coordination of care (as documented) at patient's floor/unit and/or counseling patient: Coding Level of Care Code 65897 Initial Inpt Care Lvl 3 Diagnoses COPD exacerbation J44.1 Necrobiosis lipoidica diabeticorum E11.620 Chronic venous insufficiency I87.2 Cellulitis of both lower extremities L03.115; L03.116 Obesity hypoventilation syndrome E66.2 Hyperlipidemia E78.5 Depression F32.9 Depression Type: major depressive disorder CHF NYHA class III I50.9 Hypertension I10 Hypertension type: essential hypertension Restless leg syndrome G25.81 GERD (gastroesophageal reflux disease) K21.9 Esophagitis presence: esophagitis presence not specified Chronic kidney disease, stage III (moderate) N18.3 Bilateral pulmonary embolism I26.99 Hypothyroidism E03.9 Hypothyroidism type: unspecified (1) Depression Depression Type: major depressive disorder (2) Hypertension Hypertension type: essential hypertension Qualified Code(s): I10 - Essential (primary) hypertension (3) GERD (gastroesophageal reflux disease) Esophagitis presence: esophagitis presence not specified Qualified Code(s): K21.9 - Gastro-esophageal reflux disease without esophagitis (4) Hypothyroidism Hypothyroidism type: unspecified Qualified Code(s): E03.9 - Hypothyroidism, unspecified
[2019-07-27] MEDS ORDERED: ALUMINUM/MAGNESIUM SUSP 30 ML UDC PO PRN (04:31)
[2019-07-27] MEDS ORDERED: ONDANSETRON INJ 2 MG/ML 2 ML VIAL IV PRN (04:31)
[2019-07-27] MEDS ORDERED: GLUCOSE 10 TABS/TUBE PO PRN (04:31)
[2019-07-27] MEDS ORDERED: PIPERACILLIN/TAZOBACTAM 3.375 GM in DEXTROSE 5% 100 ML IV ONE (04:31)
[2019-07-27] MEDS ORDERED: GLUCOSE 40% GEL 15 GM TUBE PO PRN (04:31)
[2019-07-27] MEDS ORDERED: CYCLOBENZAPRINE HCL 5 MG TAB PO PRN (04:31)
[2019-07-27] MEDS ORDERED: CARBOHYDRATES FOR HYPOGLYCEMIA PO PRN (04:31)
[2019-07-27] MEDS ORDERED: GLUCAGON FOR INJ 1 MG VIAL SQ PRN (04:31)
[2019-07-27] MEDS ORDERED: MAGNESIUM HYDROXIDE SUSP 30 ML UDC PO PRN (04:31)
[2019-07-27] MEDS ORDERED: PIPERACILL/TAZOBAC CONSULT ACTIVE PRN (04:31)
[2019-07-27] MEDS ORDERED: DICLOFENAC SOD 1% GEL 100 GM TUBE EXT PRN (04:31)
[2019-07-27] MEDS ORDERED: DEXTROSE 50% 50 ML SYRINGE IV PRN (04:31)
[2019-07-27] MEDS ORDERED: NON-FORMULARY MEDICATION (Acetaminophen 500 MG) PO PRN (04:31)
[2019-07-27] MEDS ORDERED: PATIENT'S HEIGHT AND/OR WEIGHT NEEDED SCH (04:45)
[2019-07-27] MEDS ORDERED: PIPERACILLIN/TAZOBACTAM 4.5 GM in DEXTROSE 5% 100 ML IV ONE (05:00)
[2019-07-27] MEDS: LEVOTHYROXINE SODIUM 75 MCG TABLET PO SCH (05:26)
[2019-07-27] MEDS: LEVOTHYROXINE SODIUM 200 MCG TABLET PO SCH (05:26)
[2019-07-27] MEDS: ROPINIROLE HCL 1 MG TABLET PO SCH ×2 (05:54→21:12)
[2019-07-27] MEDS ORDERED: DAPTOmycin 600 MG in SYRINGE 0 ML IV SCH (06:00)
[2019-07-27] MEDS ORDERED: HEPARIN SOD 5,000 UNIT/0.5 ML VIAL SQ SCH (06:00)
--- NOTE | 2019-07-27 06:16 | Emergency Department Note ---
Entered by Skylar Montgomery acting as a scribe for ED Provider Note Name: FRAN PENN Age: 73 Arrives Via: Walk-In Informant: Patient CC: shortnes of breath HPI: 73F arrives for evaluation of intermittent shortness of breath that began three days ago and became worse today. The patient states that 3 days ago she had cold symptoms with congestions, runny nose, trouble sleeping, and body aches which has persisted. The patient reports that she cannot get her breath even with short walks to the bathroom. She notes she is not on oxygen at home except for her CPAP. The family reports that the patient has taken mucinex but that is all. The patient denies fever and any other symptoms. ROS: See above HPI for pertinent positives & negatives. A total of 10 systems reviewed and were otherwise negative. Past Medical History:COPD, CHF, CKD, PVD, DLP, HTN, Depression, DMII, SHELIA, GERD, PE Past Surgical History:See Below Family History:See Below Social History:See Below Home Medications:See Below Allergies:See Below Vitals:BP 144/66, HR 72, RESP 19, TEMP 97.7F, O2 sat 95 nasal cannula Physical Exam: GENERAL: Patient is uncomfortable appearing and in moderate distress. EYES: No scleral icterus, unremarkable pupils. ENT: Mucous membranes moist, no nasal congestion. NECK: No masses appreciated, nomeningismus, trachea is midline. RESPIRATORY: Dyspneic and tachypneic, decreased breath sounds and tight throughout, mild wheezing. CARDIOVASCULAR: Regular rate and rhythm.No murmurs, rubs, gallops appreciated. GASTROINTESTINAL: Abdomen soft, non-tender, no peritonitis.Bowel sounds positive.No masses appreciated. BACK: No midline tenderness, no CVA tenderness EXTREMITIES: Normal motion all extremities, no cyanosis. 4+ edematous legs with venous stasis. NEUROLOGIC: Alert and oriented, no acute motor or sensory deficits, no focal weakness, cranial nerves grossly intact. SKIN: No rash, no jaundice, no diaphoresis. ED Course: Prior Medical Record, Triage/Nursing Notes, Medications, Allergies reviewed by Me Vital Signs: reviewed and remarkable for wnl Labs:Reviewed and remarkable for elevated BNP from baseline, mild cr worsening Interventions: saline lock, duoneb 1 hour, solumedrol 125mg IV, lasix 20mg IV Imaging:X ray results are stated below per my interpretation: Chest: 1 view: Bilateral congestive findings enlarged heart EKG:Per My Interpretation: Indication SHOB: Sinus 1st AV block pr 212, 70 bpm, qtc 144. LBBB. No Ectopy. No Ischemia. Compared to EKG 03/26/19, no significant changes. Reassessments/Times: 0058: Past medical records reviewed. The patient was evaluated in room B02. A complete history and physical exam was performed. 0210: I checked on the patient and her breathing is improved on douneb. Breath sounds in all lung barnes and diffuse wheezing noted. 0230: I spoke with Dr. Weldon- [facility] [place] [facility] hospitalist. He will evaluate for further management. Blood pressure:Normal.No Referral necessary Disposition:Hospitalization Differentials: Etiologies such as infections, reactive airway disease, COPD, pneumonia, pleural effusion, pulmonary edema, ARDS, pneumothorax, CHF, cardiac ischemia, cardiac tamponade, dysrhythmia, anemia, pulmonary embolism, musculoskeletal, gastrointestinal process, as well as others were entertained. Medical Decision Makin yr old female in moderate distress due to shortness of breath with history COPD, CHF, DMII, Bilateral PE, amongst others on chronic anticoagulation. She h ad very tight lung sounds on arrival vastly improved with duoneb though still somewhat short of breath and not nearly well enough for discharge. CXR with some fluid overload though I suspect primary issue given exam and recent history is COPD exacerbation. She was given small dose IV lasix due to renal function. She was given IV steroids for COPD. No clear infectious findings thus will hold off on abx at this time. Is on anticoagulation thus PE unlikely. Does not have trop elevation and EKG OK thus doubt acs. Impression: COPD exacerbation fluid overload The scribe's documentation has been prepared under my direction and personally reviewed by me in its entirety. I confirm that the note above accurately reflects all work, treatment, procedures, and medical decision making performed by me. Tommy Gibson MD Impression & Plan COPD exacerbation, Fluid overload Past Med/Surg History Medical History (Updated 07/27/19 @ 05:10 by Raymond Weldon MD) Acute and chronic respiratory failure (Inactive) Anemia Arthritis (Acute) CHF (congestive heart failure) (Chronic) Chronic GERD (Chronic) Chronic kidney disease, stage III (moderate) COPD (chronic obstructive pulmonary disease) (Chronic) COPD (chronic obstructive pulmonary disease) COPD exacerbation (Inactive) Depression (Chronic) Diabetes (Resolved) Diabetic neuropathy (Chronic) Hemorrhoids (Chronic) HTN (hypertension) (Chronic) Hyperlipidemia (Chronic) Hypothyroidism (Chronic) Left bundle branch block (Chronic) Lymphedema (Chronic) Mild mitral stenosis (Chronic) Mitral regurgitation (Chronic) Morbid obesity (Chronic) Necrobiosis lipoidica diabeticorum SHELIA on CPAP (Chronic) Osteopenia (Chronic) Restless leg syndrome (Chronic) Stage III chronic kidney disease (Chronic) Stage III chronic kidney disease (Inactive) Urinary incontinence (Chronic) Venous insufficiency (Chronic) Vitamin D deficiency Vulvar cyst (Chronic) Vulvovaginitis (Chronic) Surgical History History of cholecystectomy History of hysterectomy Family History Mother Diabetes Colon cancer Denies family history of Ovarian cancer Prostate cancer Myocardial infarction Breast cancer Social History Preferred Language: Guatemalan Communication Ability: Effective Visual Impairment: No Limitations Hearing Ability: Normal Care Giver Required: No Beliefs That Will Affect Care: None marital status: Current Living Situation: Spouse Current Living Situation Comment: [facility] Other Information That Helps Us Care for You: No Feels Safe at Home: Yes Safety Concerns: Feels Safe At This Time Smoking Status: Unknown if ever smoked Hx Alcohol Use: No Hx Substance Use: No Seatbelt Use: always Results & Data Vital Signs Vital Signs - 24 hr 07/27/19 00:47 07/27/19 01:00 07/27/19 01:16 Temperature 36.5 C Temperature Source Oral Pulse Rate 72 Pulse Rate [Bilateral Apical] 69 Pulse Rate [Left Finger] 63 Respiratory Rate 19 26 H 23 Respiratory Effort / Characteristics Non-Labored Non-Labored Spontaneous Respiratory Depth Normal Respiratory Pattern Regular Blood Pressure 144/66 H Blood Pressure [Left Arm] 139/68 Blood Pressure Mean 92 Blood Pressure Mean [Left Arm] 91 Pulse Oximetry 95 98 97 Oxygen Delivery Method Nasal Cannula Nasal Cannula Nasal Cannula Oxygen Flow Rate 2 3 2.5 Sepsis Recent Fever Within 48 Hours No Sepsis Action Taken by Nursing No Action Required 07/27/19 01:53 07/27/19 02:42 Temperature Temperature Source Pulse Rate Pulse Rate [Bilateral Apical] Pulse Rate [Left Finger] 62 73 Respiratory Rate 22 22 Respiratory Effort / Characteristics Respiratory Depth Respiratory Pattern Blood Pressure Blood Pressure [Left Arm] 115/59 L 93/47 L Blood Pressure Mean Blood Pressure Mean [Left Arm] 77 62 Pulse Oximetry 99 94 Oxygen Delivery Method Nebulizer Nasal Cannula Oxygen Flow Rate 3 Sepsis Recent Fever Within 48 Hours Sepsis Action Taken by Jail Medications Current Medication List: was personally reviewed by me Laboratory Data Attestation: I reviewed the patient's lab results. Result diagrams: 07/27/19 01:07 07/27/19 01:07 Lab Results 07/27/19 07/27/19 07/27/19 Range/Units 01:07 01:07 01:07 WBC 7.73 (4.8-10.8) K/uL RBC 3.92 L (4.2-5.4) M/uL Hgb 10.4 L (12.0-16.0) g/dL Hct 33.1 L (37-47) % MCV 84.4 (80-100) fL MCH 26.5 (25-34) pg MCHC 31.4 L (32-36) g/dL RDW Std Deviation 49.4 H (36.4-46.3) fL RDW Coeff of Joycelyn 16.2 H (11.5-14.5) % Plt Count 280 (130-400) K/uL MPV 10.2 (7.4-10.4) fL Immature Gran % (Auto) 0.3 % Neut % (Auto) 68.9 % Lymph % (Auto) 16.3 % Wood % (Auto) 10.3 % Eos % (Auto) 4.1 % Baso % (Auto) 0.1 % Immature Gran # (Auto) 0.02 (0.00-0.02) K/uL Neut # (Auto) 5.32 (1.4-6.5) K/uL Lymph # (Auto) 1.26 (1.2-3.4) K/uL Wood # (Auto) 0.80 H (0.11-0.59) K/uL Eos # (Auto) 0.32 (0-0.5) K/uL Baso # (Auto) 0.01 (0-0.2) K/uL PT Cancelled INR Cancelled APTT (21.0-31.0) Seconds PTT Ratio Sodium 143 (136-145) mmol/L Potassium 3.8 (3.5-5.1) mmol/L Chloride 112 H (98-107) mmol/L Carbon Dioxide 27 (21-32) mmol/L Anion Gap 4.0 (3-11) BUN 35 H (7-18) mg/dl Creatinine 1.57 H (0.6-1.2) mg/dl Est Cr Clr Drug Dosing Not Reportable Est GFR ( Amer) 37.8 Est GFR (Non-Af Amer) 32.6 BUN/Creatinine Ratio 22.5 H (10-20) Glucose 104 H (70-99) mg/dl Calcium 9.0 (8.5-10.1) mg/dl Magnesium 1.8 (1.8-2.4) mg/dl Total Bilirubin 0.4 (0.2-1) mg/dl Direct Bilirubin < 0.1 (0-0.2) mg/dl AST 17 (15-37) U/L ALT 22 (12-78) U/L Alkaline Phosphatase 79 (45-117) U/L Troponin I < 0.015 (0-0.045) ng/ml NT-Pro-B Natriuret Pep 1623 H (0-900) pg/ml Total Protein 6.9 (6.4-8.2) gm/dl Albumin 3.1 L (3.4-5.0) gm/dl Influenza Type A (PCR) (Neg) Influenza Type B (PCR) (Neg) 07/27/19 07/27/19 Range/Units 01:07 01:43 WBC (4.8-10.8) K/uL RBC (4.2-5.4) M/uL Hgb (12.0-16.0) g/dL Hct (37-47) % MCV (80-100) fL MCH (25-34) pg MCHC (32-36) g/dL RDW Std Deviation (36.4-46.3) fL RDW Coeff of Joycelyn (11.5-14.5) % Plt Count (130-400) K/uL MPV (7.4-10.4) fL Immature Gran % (Auto) % Neut % (Auto) % Lymph % (Auto) % Wood % (Auto) % Eos % (Auto) % Baso % (Auto) % Immature Gran # (Auto) (0.00-0.02) K/uL Neut # (Auto) (1.4-6.5) K/uL Lymph # (Auto) (1.2-3.4) K/uL Wood # (Auto) (0.11-0.59) K/uL Eos # (Auto) (0-0.5) K/uL Baso # (Auto) (0-0.2) K/uL PT 16.6 H INR 1.7 H APTT 43.9 H (21.0-31.0) Seconds PTT Ratio 1.6 Sodium (136-145) mmol/L Potassium (3.5-5.1) mmol/L Chloride (98-107) mmol/L Carbon Dioxide (21-32) mmol/L Anion Gap (3-11) BUN (7-18) mg/dl Creatinine (0.6-1.2) mg/dl Est Cr Clr Drug Dosing Est GFR ( Amer) Est GFR (Non-Af Amer) BUN/Creatinine Ratio (10-20) Glucose (70-99) mg/dl Calcium (8.5-10.1) mg/dl Magnesium (1.8-2.4) mg/dl Total Bilirubin (0.2-1) mg/dl Direct Bilirubin (0-0.2) mg/dl AST (15-37) U/L ALT (12-78) U/L Alkaline Phosphatase (45-117) U/L Troponin I (0-0.045) ng/ml NT-Pro-B Natriuret Pep (0-900) pg/ml Total Protein (6.4-8.2) gm/dl Albumin (3.4-5.0) gm/dl Influenza Type A (PCR) Neg for Influ A (Neg) Influenza Type B (PCR) Neg for Influ B (Neg) Administered Medications Daptomycin 600 mg/ Syringe 12 mls @ 6 mls/min IV Q24H [facility]; Protocol Stop: 08/03/19 05:59 Last Admin: 07/27/19 05:54 Dose: 6 mls/min Documented by: [id number] Levothyroxine Sodium (Synthroid) 75 mcg PO DAILYBB LANRE Stop: 08/26/19 06:29 Last Admin: 07/27/19 05:26 Dose: 75 mcg Documented by: [id number] Levothyroxine Sodium (Synthroid) 200 mcg PO DAILYBB LANRE Stop: 08/26/19 06:29 Last Admin: 07/27/19 05:26 Dose: 200 mcg Documented by: [id number] Ropinirole HCl (Requip) 1 mg PO HS LANRE Stop: 08/26/19 20:59 Last Admin: 07/27/19 05:54 Dose: 1 mg Documented by: [id number] Discontinued Medications Albuterol (Duoneb) 12 ml NEB ONE ONE Stop: 07/27/19 01:02 Last Admin: 07/27/19 01:16 Dose: 12 ml Documented by: [id number] Furosemide (Lasix) 20 mg IV NOW STA Stop: 07/27/19 02:13 Last Admin: 07/27/19 02:36 Dose: 20 mg Documented by: [id number] Piperacillin Sod/Tazobactam (Sod 4.5 gm/ Dextrose) 120 mls @ 200 mls/hr IV NOW ONE; Protocol Stop: 07/27/19 05:35 Last Admin: 07/27/19 05:20 Dose: 200 mls/hr Documented by: [id number] Methylprednisolone (Solumedrol) 125 mg IV NOW STA Stop: 07/27/19 02:12 Last Admin: 07/27/19 02:36 Dose: 125 mg Documented by: [id number] Blood Pressure Blood Pressure Findings: Low blood pressure Blood Pressure Disposition: further management by hospitalist Discharge Plan Visit Data *Final* Discharge Date/Time: 07/27/19 04:06 Chief Complaint: Respiratory Problems Stated Complaint: HAVING TROUBLE BREATHING ED Provider: Tommy Gibson Discharge Problem: COPD exacerbation, Fluid overload Patient Disposition: Admitted As Inpatient Discharge Instructions Interventions: ED Discharge Assessment Last Done: 07/27/19 04:06 Discharge Problem: Fluid overload Qualifiers: Hypervolemia type: unspecified Qualified Code(s): E87.70 - Fluid overload, un specified The scribe's documentation has been prepared under my direction and personally reviewed by me in its entirety. I confirm that the note above accurately reflects all work, treatment, procedures, and medical decision making performed by me.
--- NOTE | 2019-07-27 06:39 | XRay Report ---
XR chest 1V portable HISTORY: 73 years-old Female Shob acute shortness of breath COMPARISON: Chest radiograph 02/15/2019 TECHNIQUE: Portable AP view of the chest FINDINGS: Cardiac silhouette is enlarged, unchanged. Prominence of the pulmonary arteries may reflect underlyin g pulmonary tear hypertension. Pulmonary vascular congestion with mild interstitial coarsening. Blunt ing of the costophrenic angles suggests trace effusions. Mild bibasilar densities suggest atelectasis . There is no pneumothorax. Bones appear grossly intact. IMPRESSION: 1. Cardiomegaly with mild pulmonary edema. 2. Probable trace pleural effusions. ACT 112: Negative or not required by law. The above report was generated using voice recognition software. It may contain grammatical, syntax o r spelling errors. Electronically signed by: Aguilar Chávez M.D. 07/27/2019 6:38 AM
[2019-07-27] MEDS: LEVALBUTEROL HCL 0.63 MG/3 ML NEB INH SCH ×2 (07:02→13:22)
[2019-07-27] MEDS: BUDESONIDE 0.5 MG/2 ML VIAL (PULMICORT) NEB SCH ×2 (07:02→19:14)
[2019-07-27] MEDS: INSULIN ASPART 100 UNITS/ML 3 ML PEN SC SCH ×4 (08:21→21:12)
[2019-07-27] MEDS: FLUTICASONE/VILANTEROL 200/25MCG 14 PUFFS/INHALER INH SCH (08:25)
[2019-07-27] MEDS: LABETALOL HCL 200 MG TAB PO SCH ×2 (08:26→21:11)
[2019-07-27] MEDS: FERROUS SULFATE 325 MG TAB PO SCH (08:26)
[2019-07-27] MEDS: ESCITALOPRAM OXALATE 10 MG TAB PO SCH (08:26)
[2019-07-27] MEDS: CHOLECALCIFEROL 1,000 UNITS 25 MCG TAB PO SCH (08:26)
[2019-07-27] MEDS: CYANOCOBALAMIN 500 MCG TABLET (VITAMIN B-12) PO SCH (08:26)
[2019-07-27] MEDS: POTASSIUM CHLORIDE 20 MEQ TABCR PO SCH ×2 (08:27→21:12)
[2019-07-27] MEDS: PANTOprazole 40 MG TAB PO SCH (08:27)
[2019-07-27] MEDS ORDERED: LABETALOL HCL 200 MG TAB PO SCH (09:00)
--- NOTE | 2019-07-27 10:24 | Electrocardiogram Report ---
Test Reason : Blood Pressure : / mmHG Vent. Rate : 070 BPM Atrial Rate : 070 BPM P-R Int : 212 ms QRS Dur : 144 ms QT Int : 456 ms P-R-T Axes : 033 006 073 degrees QTc Int : 492 ms Poor data quality, interpretation may be adversely affected Sinus rhythm with 1st degree A-V block Left bundle branch block Abnormal ECG When compared with ECG of 26-MAR-2019 17:17, No significant change was found Confirmed by Antonio Torres ([id number]) on 07/27/2019 10:24:10 AM Referred By: REFERRED SELF Confirmed By:Kenny Torres
[2019-07-27] MEDS: PIPERACILLIN/TAZOBACTAM 4.5 GM in DEXTROSE 5% 100 ML IV SCH ×2 (10:43→18:19)
--- NOTE | 2019-07-27 12:22 | Hospitalist Progress Note ---
Date of Service July 27, 2019 Assessment & Plan (1) COPD exacerbation: Possible. I am uncertain if her current respiratory symptoms are from volume overload or from infectious acute bronchitis/COPD exacerbation. It is possible it is both issues. She typically only uses O2 at night-time with her CPAP. Today she continues to require O2. She received 125mg of IV solumedrol in the ER yesterday evening but she has minimal wheezing on exam today; thus, will defer on additional steroids for now. Cont scheduled nebs. If wheezing persists or worsens then resume IV or PO steroids. I am stopping the broad-spectrum IV abx (see cellulitis below) and changing to PO doxy 100mg BID to cover the lungs. Flu PCR was negative. (2) CHF NYHA class III: Received IV lasix in the ER with some response. I repeated her cxr early this afternoon today to see if any pneumonia could be seen and for interval change. It looks similar to prior chest x-rays. I gave an additional dose of IV bumex this afternoon with good response - at least 750cc out. Will recheck BMP in am. If stable would resume IV diuresis with bumex. (3) Cellulitis of both lower extremities: Most of what I see on exam today appears chronic. I don't see evidence of cellulitis. Stop the IV zosyn/daptomycin. (4) Chronic venous insufficiency: See above diurese elevate legs etc (5) Obesity hypoventilation syndrome: CPAP HS (6) Hyperlipidemia: Continue simvastatin 20 mg every morning (7) Depression: Continue Escitalopram 10 mg daily (8) Hypertension: BPs were low-normal at admission now have returned to normal or high cont home BP meds (9) Restless leg syndrome: Continue ropinirole 1 mg p.o. at bedtime (10) GERD (gastroesophageal reflux disease): Cont pantoprazole (11) Chronic kidney disease, stage III (moderate): Creatinine 1.57 upon admission, with range 1.52-2.09 Recheck BMP in am (12) Bilateral pulmonary embolism: history of INR at 0100 this am was 1.7 cont home warfarin regimen repeat INR am (13) Hypothyroidism: Continue levothyroxine sodium 25 mcg daily TSH in 2019 was mildly low repeat TSH am (14) Morbid obesity with BMI of 50.0-59.9, adult: BMI 59 (15) Diabetes mellitus type 2, uncontrolled: adjust novolog correction adjust novolog carb ratio lantus 50 units BID uncontrolled due to steroids yesterday pm and illness if no improvement as night wears on then CHANGE TO INSULIN DRIP PROTOCOL (16) DVT prophylaxis: warfarin with INR daily PT, OT evals to be requested Admission and Anticipated Discharge Date Admission Date: July 27, 2019 Subjective patient states that for several days she has had cough with wheezing very little sputum production has had dyspnea on exertion with minimal activity appetite has been a "bit off" although flowsheets show she is eating at least 50% of meals tele overnight wnl she reports she had had "muscle aches" every where for a few days before coming into the hospital but these have resolved also states her weight of 146kg is similar to readings outside the hospital and that her leg edema is about average Review of Systems Constitutional: + fatigue; no fever and no chills Respiratory: + cough and + wheezing; no sputum production Cardiovascular: + dyspnea on exertion; no chest pain and no orthopnea Gastrointestinal: no abdominal pain, no nausea and no vomiting Physical Exam Constitutional: + morbidly obese; no acute distress and no altered mental status ENMT: external ear and nose normal, oropharynx normal Respiratory: no respiratory distress Auscultation: + diminished lung sounds (expiratory phase ), + crackles (bases) and + wheezes (occasional ) Cardiovascular: Rate/Rhythm: regular rate and regular rhythm Heart Sounds: normal S1 and normal S2 Vessels: posterior tibial pulses present and dorsalis pedis pulses present; no JVD Extremities: + edema (lymphedema b/l with stasis changes and dry skin on foss) Gastrointestinal (Abdomen): normal bowel sounds, soft, nontender, no hepatosplenomegaly Skin: pink skin on shins extending from just above ankles to just below the knees; occasional excoriation laurie and/or scabbed ulcer from picking/scratching; no warmth or tenderness to suggest cellulitis Psychiatric: A+Ox3, euthymic affect Results & Data ([facility]) Vital Signs (Past 12 Hours) Vital Signs Temp Pulse Pulse Pulse Resp BP BP 07/27/19 11:15 36.6 C 73 22 171/79 H 07/27/19 07:17 36.9 C 73 18 171/76 H 07/27/19 07:03 70 18 07/27/19 04:30 36.6 C 74 22 169/69 H 07/27/19 04:06 66 22 136/50 L 07/27/19 02:42 73 22 93/47 L 07/27/19 01:53 62 22 115/59 L 07/27/19 01:16 63 23 07/27/19 01:00 69 26 H 139/68 07/27/19 00:47 36.5 C 72 19 144/66 H Pulse Ox 07/27/19 11:15 95 07/27/19 07:17 98 07/27/19 07:03 95 07/27/19 04:30 95 07/27/19 04:06 96 07/27/19 02:42 94 07/27/19 01:53 99 07/27/19 01:16 97 07/27/19 01:00 98 07/27/19 00:47 95 Laboratory Results Laboratory Results - last 24 hr 07/27/19 07/27/19 07/27/19 01:07 01:07 01:07 WBC 7.73 RBC 3.92 L Hgb 10.4 L Hct 33.1 L MCV 84.4 MCH 26.5 MCHC 31.4 L RDW Std Deviation 49.4 H RDW Coeff of Joycelyn 16.2 H Plt Count 280 MPV 10.2 Immature Gran % (Auto) 0.3 Neut % (Auto) 68.9 Lymph % (Auto) 16.3 [place] % (Auto) 10.3 Eos % (Auto) 4.1 Baso % (Auto) 0.1 Immature Gran # (Auto) 0.02 Neut # (Auto) 5.32 Lymph # (Auto) 1.26 [place]len # (Auto) 0.80 H Eos # (Auto) 0.32 Baso # (Auto) 0.01 PT Cancelled INR Cancelled APTT PTT Ratio Sodium 143 Potassium 3.8 Chloride 112 H Carbon Dioxide 27 Anion Gap 4.0 BUN 35 H Creatinine 1.57 H Est Cr Clr Drug Dosing Not Reportable Est GFR ( Amer) 37.8 Est GFR (Non-Af Amer) 32.6 BUN/Creatinine Ratio 22.5 H Glucose 104 H POC Glucose Calcium 9.0 Magnesium 1.8 Total Bilirubin 0.4 Direct Bilirubin < 0.1 AST 17 ALT 22 Alkaline Phosphatase 79 Troponin I < 0.015 NT-Pro-B Natriuret Pep 1623 H Total Protein 6.9 Albumin 3.1 L Influenza Type A (PCR) Influenza Type B (PCR) 07/27/19 07/27/19 07/27/19 01:07 01:43 07:19 WBC RBC Hgb Hct MCV MCH MCHC RDW Std Deviation RDW Coeff of Joycelyn Plt Count MPV Immature Gran % (Auto) Neut % (Auto) Lymph % (Auto) [place] % (Auto) Eos % (Auto) Baso % (Auto) Immature Gran # (Auto) Neut # (Auto) Lymph # (Auto) [place]len # (Auto) Eos # (Auto) Baso # (Auto) PT 16.6 H INR 1.7 H APTT 43.9 H PTT Ratio 1.6 Sodium Potassium Chloride Carbon Dioxide Anion Gap BUN Creatinine Est Cr Clr Drug Dosing Est GFR ( Amer) Est GFR (Non-Af Amer) BUN/Creatinine Ratio Glucose POC Glucose 150 H Calcium Magnesium Total Bilirubin Direct Bilirubin AST ALT Alkaline Phosphatase Troponin I NT-Pro-B Natriuret Pep Total Protein Albumin Influenza Type A (PCR) Neg for Influ A Influenza Type B (PCR) Neg for Influ B 07/27/19 11:17 WBC RBC Hgb Hct MCV MCH MCHC RDW Std Deviation RDW Coeff of Joycelyn Plt Count MPV Immature Gran % (Auto) Neut % (Auto) Lymph % (Auto) [place] % (Auto) Eos % (Auto) Baso % (Auto) Immature Gran # (Auto) Neut # (Auto) Lymph # (Auto) [place]len # (Auto) Eos # (Auto) Baso # (Auto) PT INR APTT PTT Ratio Sodium Potassium Chloride Carbon Dioxide Anion Gap BUN Creatinine Est Cr Clr Drug Dosing Est GFR ( Amer) Est GFR (Non-Af Amer) BUN/Creatinine Ratio Glucose POC Glucose 295 H Calcium Magnesium Total Bilirubin Direct Bilirubin AST ALT Alkaline Phosphatase Troponin I NT-Pro-B Natriuret Pep Total Protein Albumin Influenza Type A (PCR) Influenza Type B (PCR) PG Care Time/CCT Total # of Minutes Spent Total Time Spent with Patient: Total time spent is greater than 50% in coordination of care (as documented) at patient's floor/unit and/or counseling patient: Coding Level of Care Code 79625 Subseq Hosp Care Lvl 3 Diagnoses COPD exacerbation J44.1 CHF NYHA class III I50.33 Congestive heart failure type: diastolic Congestive heart failure chronicity: acute on chronic Cellulitis of both lower extremities L03.115; L03.116 Chronic venous insufficiency I87.2 Obesity hypoventilation syndrome E66.2 Hyperlipidemia E78.2 Hyperlipidemia type: mixed hyperlipidemia Depression F32.89 Depression Type: other depression Hypertension I10 Hypertension type: essential hypertension Restless leg syndrome G25.81 GERD (gastroesophageal reflux disease) K21.9 Esophagitis presence: esophagitis presence not specified Chronic kidney disease, stage III (moderate) N18.3 Bilateral pulmonary embolism I26.99 Hypothyroidism E03.9 Hypothyroidism type: unspecified Morbid obesity with BMI of 50.0-59.9, adult E66.01; Z68.43 Diabetes mellitus type 2, uncontrolled E11.65 Glycemic state: with hyperglycemia DVT prophylaxis Z29.9 (1) CHF NYHA class III Congestive heart failure type: diastolic Congestive heart failure chronicity: acute on chronic Qualified Code(s): I50.33 - Acute on chronic diastolic (congestive) heart failure (2) Depression Depression Type: other depression Qualified Code(s): F32.89 - Other specified depressive episodes (3) Hyperlipidemia Hyperlipidemia type: mixed hyperlipidemia Qualified Code(s): E78.2 - Mixed hyperlipidemia (4) Hypothyroidism Hypothyroidism type: unspecified Qualified Code(s): E03.9 - Hypothyroidism, unspecified (5) GERD (gastroesophageal reflux disease) Esophagitis presence: esophagitis presence not specified Qualified Code(s): K21.9 - Gastro-esophageal reflux disease without esophagitis (6) Hypertension Hypertension type: essential hypertension Qualified Code(s): I10 - Essential (primary) hypertension (7) Diabetes mellitus type 2, uncontrolled Glycemic state: with hyperglycemia Qualified Code(s): E11.65 - Type 2 diabetes mellitus with hyperglycemia
--- NOTE | 2019-07-27 13:08 | XRay Report ---
XR chest 2V PA/lateral CLINICAL HISTORY: acute respiratory failure COMPARISON STUDY: July 27, 2019 FINDINGS: The heart is enlarged. There is radiographic evidence of mild pulmonary vascular congestion /fluid overload. There is no lobar consolidation. There are no cystic pleural effusions. Evaluation i s limited due to the patient's large body habitus.[ IMPRESSION: Cardiomegaly and radiographic evidence of mild congestive failure/fluid overload. ACT 112: Negative or not required by law. Electronically signed by: Simon Walter M.D. 07/27/2019 1:06 PM
[2019-07-27] MEDS ORDERED: BUMETANIDE 2 MG in SYRINGE 0 ML IV ONE (14:30)
[2019-07-27] MEDS: WARFARIN SOD 5 MG TAB PO SCH (16:19)
[2019-07-27] MEDS: LEVALBUTEROL HCL 1.25 MG/3 ML NEB INH SCH (19:14)
[2019-07-27] MEDS ORDERED: INSULIN GLARGINE SOLOSTAR 100 UNITS/ML 3 ML PEN SQ SCH (21:00)
[2019-07-27] MEDS: SIMVASTATIN 20 MG TAB PO SCH (21:12)
[2019-07-27] MEDS: INSULIN GLARGINE SOLOSTAR 100 UNITS/ML 3 ML PEN SQ SCH (21:12)
[2019-07-27] MEDS: DOXYCYCLINE HYCLATE 100 MG CAP PO SCH (21:58)
[2019-07-28] MEDS: LEVALBUTEROL HCL 1.25 MG/3 ML NEB INH SCH ×4 (01:06→20:46)
[2019-07-28] MEDS ORDERED: DAPTOmycin 375 MG in SYRINGE 0 ML IV SCH (06:00)
[2019-07-28] MEDS: LEVOTHYROXINE SODIUM 200 MCG TABLET PO SCH (06:34)
[2019-07-28] MEDS: LEVOTHYROXINE SODIUM 75 MCG TABLET PO SCH (06:34)
[2019-07-28 06:40] LABS: Hematocrit (blood only) 32.4 % (37-47); Mean Corpuscular Hemoglobin 26.3 pg (25-34); Mean Corpuscular Hgb Conc 30.9 g/dL (32-36); Mean Corpuscular Volume 85.3 fL (80-100); Mean Platelet Volume 10.1 fL (7.4-10.4); Platelet Count 273 K/uL (130-400); RDW Coefficient of Variation 16.5 % (11.5-14.5); RDW Standard Deviation 51.4 fL (36.4-46.3); White Blood Count 9.42 K/uL (4.8-10.8)
[2019-07-28 06:51] LABS: INR 1.7 (0.9-1.1); Prothrombin Time 16.6 Seconds (9.0-12.0)
[2019-07-28] MEDS: BUDESONIDE 0.5 MG/2 ML VIAL (PULMICORT) NEB SCH ×2 (06:59→20:46)
[2019-07-28 07:13] LABS: BUN Creatinine Ratio 21.3 (10-20); Calcium 8.9 mg/dl (8.5-10.1); Creatinine Clr Calc Pharmacy 39.6 ml/min; Est GFR (African American) 33.4; Est GFR (Non-African American) 28.8
[2019-07-28 07:23] LABS: Thyroid Stimulating Hormone 0.215 uIu/ml (0.300-4.500)
[2019-07-28] MEDS: CYANOCOBALAMIN 500 MCG TABLET (VITAMIN B-12) PO SCH (08:03)
[2019-07-28] MEDS: CHOLECALCIFEROL 1,000 UNITS 25 MCG TAB PO SCH (08:03)
[2019-07-28] MEDS: FERROUS SULFATE 325 MG TAB PO SCH (08:04)
[2019-07-28] MEDS: DOXYCYCLINE HYCLATE 100 MG CAP PO SCH ×2 (08:04→21:17)
[2019-07-28] MEDS: ESCITALOPRAM OXALATE 10 MG TAB PO SCH (08:04)
[2019-07-28] MEDS: POTASSIUM CHLORIDE 20 MEQ TABCR PO SCH ×2 (08:04→21:16)
[2019-07-28] MEDS: PANTOprazole 40 MG TAB PO SCH (08:04)
[2019-07-28] MEDS: FLUTICASONE/VILANTEROL 200/25MCG 14 PUFFS/INHALER INH SCH (08:05)
[2019-07-28] MEDS: INSULIN GLARGINE SOLOSTAR 100 UNITS/ML 3 ML PEN SQ SCH ×2 (08:05→21:20)
[2019-07-28] MEDS: INSULIN ASPART 100 UNITS/ML 3 ML PEN SC SCH ×4 (08:06→21:18)
[2019-07-28] MEDS: LABETALOL HCL 200 MG TAB PO SCH ×2 (08:08→21:17)
[2019-07-28] MEDS: ACETAMINOPHEN 325 MG TAB PO PRN (10:30)
[2019-07-28] MEDS: BUMETANIDE 2 MG in SYRINGE 0 ML IV SCH ×2 (10:31→17:11)
--- NOTE | 2019-07-28 13:53 | Heart Failure Progress Note ---
Date of Service July 28, 2019 Assessment & Plan (1) Fluid overload: (2) Chronic venous insufficiency: (3) Obesity hypoventilation syndrome: (4) Morbid obesity: (5) COPD exacerbation: 1. Chronic diastolic CHF/Hypervolemia: She has a difficult exam, but does not appear too far from her typical baseline. If her weight is accurate it is down quite a bit from her dry weight. She does admit to recent dietary indiscretion. Her lower extremity edema is chronic likely secondary to venous insufficiency, see below. Her dyspnea is very chronic but more significant today-likely multifactorial including chronic diastolic heart failure, COPD, morbid obesity, and deconditioning/chronic knee pain. ProBNP is elevated which would support heart failure. Chest xray consistent with pulmonary edema/CHF. Continues to require supplemental oxygen. Agree with more aggressive diuresis and she seems to be having an appropriate response. Continue Bumex 2mg IV BID until creatinine bumps. Recommend fluid restriction of 1,500 mL daily. Daily standing weights. Low sodium diet, less than 2,000 mg daily. 2. Hypertension: Slightly elevated, but potentially in the setting of hypervolemia. Continue diuretics. Continue monitoring and current medical therapy. 3. 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 She had a repeat ultrasound 2019 that confirms reflux of the GSV amenable to ablation. Continue compression stockings. Elevate lower extremities as much as possible. High risk for recurrent cellulitis. 4. Obesity: Diet and weight loss recommended. 5. COPD: Follows closely with pulmonary. Continue nebulizer treatments. Consider referral to COPD clinic. Disposition: Will continue to follow during hospitalization. Anticipate follow up with the heart failure program within 5-7 days of discharge with follow up labs prior. Will arrange. Subjective Ms. Cisneros is a 73 year old female with past medical history significant for congestive heart failure- NYHA Class III, mild to moderate mitral valve disease, peripheral artery disease, diabetic mellitus type 2 on insulin management, morbidly obese, chronic kidney condition, bilateral PE/DVT on coumadin, hyper tension, and anxiety, COPD, and depression. Recent cardiac studies: 1. 07/18/16 Echocardiogram- EF 55-60%, no regional wall motion abnormalities. Mild aortic stenosis, Mild MR, Turbulent flow across the mitral valve suggesting mild stenosis from the severe mitral annular calcification. 2. 05/19/18 ABIs- DEBRA's normal bilaterally. All 4 pedal pulses strong, multiphasic, normal. No evidence of LE arterial occulsive diease. 3. 05/19/18 Venous Dulex- R GSV dilated with reflux, R SSV dilated, without reflux. Left GSV and SSV dilated without reflux. No evidence of DVT/SVT BLE. 4. 02/12/18 Dobumatine stress echo- Negative stress echo for IN at 68%. Negative stress ECG at 68%. No chest pain. Normal LV function. She has been referred to the heart failure program by Dr. Mooney for education and more intensive management. She has had several admissions to the hospital for acute heart failure exacerbations. She was admitted 05/26/18 through 05/29/18 for an acute exacerbation secondary to skipping her diuretic for several days. She was admitted from 09/22/18 through 09/27/18 for pneumonia/COPD/CHF. She was most recently hospitalized from 02/15/2019 through 02/19/2019 for COPD exacerbation. She presented with progressive shortness of breath and increased lower extremity edema with blisters. She improved with supplemental oxygen, steroids, and duo nebs. Her BNP was not elevated and his time of admission so it is likely CHF was not a contributing factor. Her Bumex was held during her hospitalization and was actually discontinued on discharge. Home nursing called on 02/23/2019 reporting that the patient was gaining 1-2 lb a day since discharge off of her diuretic therapy with more shortness of breath. Her weight at that time was 333 lb. I recommended that she restart her Bumex at 2 mg BID, her previous home dose. Follow-up labs were ordered and demonstrate stable kidney function and electrolytes. She was last evaluated in the heart failure program on 06/29/19. She was near euvolemic and continued Bumex 4 mg in the am and 2 mg in the pm. Labs that day demonstrate stable kidney function and electrolytes. She has since been evaluated by the vascular team for possible venous ablation. She is also followed closely by pulmonary as an outpatient. She is currently admitted with progressive short of breath. Patient reports that 2-3 days prior to admission she started to become increasing short of breath even with minimal exertion. She is currently in the process of moving and was having issues with her scale. Prior to the weekend she states her weight was consistent with her typical baseline, 325-327 lb on her home scale. She lives a fairly sedentary lifestyle. She typically uses a wheelchair to get around at home. She does ambulate to and from the bathroom which is approximately 30 feet. Part of her issues with ambulation are secondary to chronic knee pain. She also has more difficulty in the colder weather and her pain has been significantly worse over the past 2 weeks. She is currently taking Bumex 4 mg in the am and Bumex 2 mg pm. She uses a CPAP with oxygen at night and therefore denies orthopnea or PND. She sleeps in an adjustable bed with her head elevated. She has been using her oxygen on a more regular basis over the past few days at home. Her lower extremity edema has been stable in nature. She is not currently going to the wound clinic. Recent venous ultrasound amenable to ablation. She has been trying her best to limit her sodium intake but admits to eating more fast food over the past week. Her and her participate in [employer] meals. She denies chest pain, palpitations, syncope, presyncope, abnormal bleeding, or cerebrovascular symptoms. She is currently sitting in a chair at the bedside. She remains short of breath with minimal activity. She is still requiring supplemental oxygen. She started IV diuretics yesterday and reports increased urine output. She was able to stand on the scale this morning (306 lb) so they feel the weight is accurate. It's actually well below her typical dry weight (325-327 lb?). Her ProBNP is elevated today at 1623. BUN/creatinine are elevated but stable for her. Physical Exam Physical Exam: Constitutional: Alert, oriented, in no acute distress HEENT: Head is atraumatic and normocephalic. EOMs intact. Sclera anicteric. Face is symmetric. No perioral cyanosis. Mucous membranes moist. Neck: Supple, difficult to assess JVP given thick neck Pulmonary: Normal respiratory effort, clear to auscultation bilaterally Cardiac: Regular rate and rhythm, normal S1 and S2, no gallops, no rubs, 2/6 basal systolic murmur Extremities: Tense lower extremity edema bilaterally, L>R. Trace pitting. Hype rpigmentation. No clubbing or cyanosis. Pulses intact. Abdomen: Obese. Normal bowel sounds, soft, non-tender, no abdominal mass palpated Large pannus. Skin: Chronic venous stasis skin changes of bilateral lower extremities. No rash. No wounds. Neurological: Oriented to person, place, and time Results & Data Vital Signs (Past 12 Hours) Vital Signs Temp Pulse Resp BP Pulse Ox 07/28/19 13:33 68 22 98 07/28/19 11:16 97.9 F 63 18 145/73 H 96 07/28/19 07:21 97.5 F L 72 19 157/76 H 98 07/28/19 07:00 64 20 97 07/28/19 04:01 97.9 F 71 19 157/70 H 96 PG Care Time/CCT Total # of Minutes Spent Total Time Spent with Patient: Total time spent is greater than 50% in coordination of care (as documented) at patient's floor/unit and/or counseling patient: Coding Level of Care Code 45208 Inpt Consult Level 3 Diagnoses Fluid overload E87.70 Hypervolemia type: unspecified Chronic venous insufficiency I87.2 Obesity hypoventilation syndrome E66.2 Morbid obesity E66.01 COPD exacerbation J44.1 (1) Fluid overload Hypervolemia type: unspecified Qualified Code(s): E87.70 - Fluid overload, unspecified
--- NOTE | 2019-07-28 14:34 | Hospitalist Progress Note ---
Date of Service July 28, 2019 Assessment & Plan (1) CHF NYHA class III: Received IV lasix in the ER with some response. Repeated her cxr early on 07/27 to see if any pneumonia could be seen and for interval change. It looks similar to prior chest x-rays. I personally weighed her today and weight on the standing scale was 331.5 lbs. This is above her usual baseline weight ~325 lbs (Last one in HF clinic with Carmen Ortega.). - Started Bumex 2 mg IV BID -> Will get good standing documented weights and monitor breathing. Monitor BMP. (2) COPD exacerbation: Possible. I am uncertain if her current respiratory symptoms are from volume overload or from infectious acute bronchitis/COPD exacerbation. It is possible it is both issues. She typically only uses O2 at night-time with her CPAP. Today she continues to require O2. She received 125mg of IV solumedrol in the ER yesterday evening but she has minimal wheezing on exam today; thus, will defer on additional steroids for now. Cont scheduled nebs. Stopped the broad-spectrum IV abx (see cellulitis below) and changing to PO doxy 100mg BID to cover the lungs. Flu PCR was negative. No wheezing noted today. Will continue to defer abx as I think this may be more CHF than COPD. (3) Cellulitis of both lower extremities: Most of what I see on exam today appears chronic. I don't see evidence of cellulitis. Stop the IV zosyn/daptomycin. - Agree. Continue doxy for possible lungs. (4) Chronic venous insufficiency: See above -> Follow with wound center. Possible venous ablation planned? (5) Obesity hypoventilation syndrome: CPAP HS (6) Hyperlipidemia: Continue simvastatin 20 mg every morning (7) Depression: Continue Escitalopram 10 mg daily (8) Hypertension: BPs were low-normal at admission now have returned to normal or high - Cont home BP meds -> Stable today at 145/75. (9) Restless leg syndrome: Continue ropinirole 1 mg p.o. at bedtime (10) GERD (gastroesophageal reflux disease): Cont pantoprazole (11) Chronic kidney disease, stage III (moderate): Creatinine 1.57 upon admission, with range 1.52-2.09 Recheck BMP in am -> Stable today with diuresis. Cr 1.75. (12) Bilateral pulmonary embolism: history of INR at 0100 this am was 1.7 cont home warfarin regimen repeat INR am -> Still 1.7 today. (13) Hypothyroidism: Continue levothyroxine sodium 25 mcg daily TSH in 2019 was mildly low. Stable here. (14) Morbid obesity with BMI of 50.0-59.9, adult: BMI 59 (15) Diabetes mellitus type 2, uncontrolled: adjust novolog correction adjust novolog carb ratio lantus 50 units BID Uncontrolled on 07/28 due to steroids and illness Much better today, but given big swing and high insulin needs, will consult glycemic pharmacist. (16) DVT prophylaxis: warfarin with INR daily PT, OT evals to be requested Admission and Anticipated Discharge Date Admission Date: July 27, 2019 Subjective Still very short of breath with exertion (even standing). Knees are quite painful. Reports no fevers/chills, chest pain, abdominal pain, nausea, or vomiting. Physical Exam Constitutional: WD/WN, vitals as above + morbidly obese, cooperative and + diaphoretic Eyes: EOM intact bilaterally; no conjunctival abnormality ENMT: external ear and nose normal, oropharynx normal Neck: trachea midline, no thyromegaly normal visual inspection Respiratory: normal respiratory effort, lungs clear to auscultation no respiratory distress Cardiovascular: Rate/Rhythm: regular rate Heart Sounds: normal S1 and normal S2 Vessels: no JVD Extremities: + edema Gastrointestinal (Abdomen): Inspection/Auscultation: abdomen normal to inspection; abdomen not distended Musculoskeletal: no cyanosis or clubbing, extremities motor strength 5/5 Skin: no rashes, warm and dry Neurologic: moves all extremities and awake Psychiatric: Orientation: alert, oriented to person and cooperative Results & Data ([facility]) Vital Signs (Past 12 Hours) Vital Signs Temp Pulse Resp BP Pulse Ox 07/28/19 13:33 68 22 98 07/28/19 11:16 36.6 C 63 18 145/73 H 96 07/28/19 07:21 36.4 C L 72 19 157/76 H 98 07/28/19 07:00 64 20 97 07/28/19 04:01 36.6 C 71 19 157/70 H 96 PG Care Time/CCT Total # of Minutes Spent Total Time Spent with Patient: Total time spent is greater than 50% in coordination of care (as documented) at patient's floor/unit and/or counseling patient: Coding Level of Care Code 33819 Subseq Hosp Care Lvl 3 Diagnoses CHF NYHA class III I50.33 Congestive heart failure type: diastolic Congestive heart failure chronicity: acute on chronic COPD exacerbation J44.1 Cellulitis of both lower extremities L03.115; L03.116 Chronic venous insufficiency I87.2 Obesity hypoventilation syndrome E66.2 Hyperlipidemia E78.2 Hyperlipidemia type: mixed hyperlipidemia Depression F32.89 Depression Type: other depression Hypertension I10 Hypertension type: essential hypertension Restless leg syndrome G25.81 GERD (gastroesophageal reflux disease) K21.9 Esophagitis presence: esophagitis presence not specified Chronic kidney disease, stage III (moderate) N18.3 Bilateral pulmonary embolism I26.99 Hypothyroidism E03.9 Hypothyroidism type: unspecified Morbid obesity with BMI of 50.0-59.9, adult E66.01; Z68.43 Diabetes mellitus type 2, uncontrolled E11.65 Glycemic state: with hyperglycemia DVT prophylaxis Z29.9 (1) CHF NYHA class III Congestive heart failure type: diastolic Congestive heart failure chronicity: acute on chronic Qualified Code(s): I50.33 - Acute on chronic diastolic (congestive) heart failure (2) Hyperlipidemia Hyperlipidemia type: mixed hyperlipidemia Qualified Code(s): E78.2 - Mixed hyperlipidemia (3) Depression Depression Type: other depression Qualified Code(s): F32.89 - Other specified depressive episodes (4) Hypertension Hypertension type: essential hypertension Qualified Code(s): I10 - Essential (primary) hypertension (5) GERD (gastroesophageal reflux disease) Esophagitis presence: esophagitis presence not specified Qualified Code(s): K21.9 - Gastro-esophageal reflux disease without esophagitis (6) Hypothyroidism Hypothyroidism type: unspecified Qualified Code(s): E03.9 - Hypothyroidism, unspecified (7) Diabetes mellitus type 2, uncontrolled Glycemic state: with hyperglycemia Qualified Code(s): E11.65 - Type 2 diabetes mellitus with hyperglycemia
[2019-07-28] MEDS ORDERED: PHARMACY GLYCEMIC MGMT CONSULT PRN (14:44)
--- NOTE | 2019-07-28 15:03 | Pharmacy Report ---
Glycemic Control Consultation - Date of Service July 28, 2019 - Scope Scope: Glycemic Pharmacist consulted by Dr Rodríguez on 07/28/19 for glycemic control and to write orders per [facility] inpatient glycemic control protocol - Objective Weight: 139.2 kg Accuchecks BSG (last 24hrs): 07/27/19 07/27/19 07/27/19 16:06 16:20 20:06 Glucose POC Glucose 307 H* 323 H* 314 H* 07/28/19 07/28/19 07/28/19 01:15 06:23 07:23 Glucose 139 H POC Glucose 160 H 146 H 07/28/19 11:14 Glucose POC Glucose 165 H Laboratory Data (last 24hrs): 07/28/19 06:23 Potassium 4.0 Carbon Dioxide 28 Anion Gap 3.0 Creatinine 1.74 H Est Cr Clr Drug Dosing 39.6 - Recent Pertinent Medications Outpatient Anti-diabetic Regimen: * Lantus 100 units SC qPM * Novolog 20 units TIDM + sliding scale up to 80 units daily * A1c = 7.4 % (02/16/19) - A1c pending for tomorrow morning The patient is currently receiving: * Basal insulin: Lantus 50 units every 12 hours * Correctional Insulin: Novolog Correction per scale ACHS Goal Range: Low 120 mg/dL - High 160 mg/dL Correction Factor: 10 mg/dL/unit * Prandial insulin: Per carb ratio of 1 unit per 3 grams CHO consumed Risk Factors for Insulin Resistance: * Steroids: Methylprednisolone 125 mg IV x 1 given yesterday AM * Infection: PO doxycycline * Diet: T2DM - Assessment & Plan Assessment & Plan: ASSESSMENT: * DF is a 73 year old female admitted to [facility] on 07/27 for shortness of breath * Patient has CHF (NYHA class III) with possible COPD exacerbation * Methylprednisolone 125 mg IV x 1 given at time of admission * BSGs ranging 150-314 mg/dL yesterday - patient received 123 units of insulin (50 units of basal and 73 units of prandial/correctional) * Pharmacy consulted for glycemic management afternoon of 07/28 given apparent insulin resistance and large variance in BSGs so far * At this point - will continue current ordered regimen, as BSGs appear controlled so far today, no steroids have been administered, and currently ordered Novolog corresponds with an estimated outpatient basal dose of 100 units * If BSGs trend up this evening will consider overnight checks * Patient on PO doxycycline for possible cellulitis/COPD exacerbation PLAN FOR INPATIENT GLYCEMIC CONTROL: * Basal insulin * Lantus 50 units SQ BID * Bolus insulin * NovoLog per scale ACHS or Q6hrs while NPO * Goal Range: Low 120 mg/dL - High 160 mg/dL * Correction Factor: 10 mg/dL/unit * Nutritional / Prandial insulin per carb ratio of 1 unit per 3 grams CHO consumed * Please note that the plan above was derived based on current level of insulin resistance and hospital stress. These recommendations are appropriate for inpatient admission only. Plan of care upon discharge will need to be reassessed to avoid potential outpatient hypo/hyperglycemia. Thank you.
[2019-07-28] MEDS ORDERED: WARFARIN SOD 2.5 MG TAB PO SCH (16:00)
[2019-07-28] MEDS: ROPINIROLE HCL 1 MG TABLET PO SCH (21:17)
[2019-07-28] MEDS: SIMVASTATIN 20 MG TAB PO SCH (21:17)
[2019-07-29] MEDS: LEVALBUTEROL HCL 1.25 MG/3 ML NEB INH SCH ×5 (00:54→19:31)
[2019-07-29] MEDS: ACETAMINOPHEN 325 MG TAB PO PRN ×2 (02:45→08:24)
[2019-07-29] MEDS: LEVOTHYROXINE SODIUM 200 MCG TABLET PO SCH (06:01)
[2019-07-29] MEDS: LEVOTHYROXINE SODIUM 75 MCG TABLET PO SCH (06:01)
[2019-07-29 07:04] LABS: Hematocrit (blood only) 33.6 % (37-47); Hemoglobin 10.2 g/dL (12.0-16.0); Mean Corpuscular Hemoglobin 25.9 pg (25-34); Mean Corpuscular Hgb Conc 30.4 g/dL (32-36); Mean Corpuscular Volume 85.3 fL (80-100); Mean Platelet Volume 10.5 fL (7.4-10.4); Platelet Count 281 K/uL (130-400); RDW Coefficient of Variation 16.5 % (11.5-14.5); RDW Standard Deviation 51.5 fL (36.4-46.3); Red Blood Count 3.94 M/uL (4.2-5.4); White Blood Count 8.54 K/uL (4.8-10.8)
[2019-07-29] MEDS: BUDESONIDE 0.5 MG/2 ML VIAL (PULMICORT) NEB SCH ×2 (07:04→19:31)
[2019-07-29 07:21] LABS: Estimated Average Glucose 169 mg/dl; Hemoglobin A1C 7.5 % (4.5-5.6)
[2019-07-29 07:34] LABS: BUN Creatinine Ratio 21.1 (10-20); Calcium 9.1 mg/dl (8.5-10.1); Creatinine Clr Calc Pharmacy 40.8 ml/min; Est GFR (African American) 34.3; Est GFR (Non-African American) 29.6; Potassium 3.5 mmol/L (3.5-5.1)
[2019-07-29 07:35] LABS: INR 1.7 (0.9-1.1); Prothrombin Time 16.4 Seconds (9.0-12.0)
[2019-07-29] MEDS: BUMETANIDE 2 MG in SYRINGE 0 ML IV SCH ×2 (08:12→16:54)
[2019-07-29] MEDS: CHOLECALCIFEROL 1,000 UNITS 25 MCG TAB PO SCH (08:12)
[2019-07-29] MEDS: FERROUS SULFATE 325 MG TAB PO SCH (08:13)
[2019-07-29] MEDS: POTASSIUM CHLORIDE 20 MEQ TABCR PO SCH ×2 (08:13→20:27)
[2019-07-29] MEDS: PANTOprazole 40 MG TAB PO SCH (08:13)
[2019-07-29] MEDS: LABETALOL HCL 200 MG TAB PO SCH ×2 (08:13→20:27)
[2019-07-29] MEDS: ESCITALOPRAM OXALATE 10 MG TAB PO SCH (08:13)
[2019-07-29] MEDS: FLUTICASONE/VILANTEROL 200/25MCG 14 PUFFS/INHALER INH SCH (08:13)
[2019-07-29] MEDS: DOXYCYCLINE HYCLATE 100 MG CAP PO SCH ×2 (08:13→20:27)
[2019-07-29] MEDS: CYANOCOBALAMIN 500 MCG TABLET (VITAMIN B-12) PO SCH (08:13)
[2019-07-29] MEDS: INSULIN ASPART 100 UNITS/ML 3 ML PEN SC SCH ×4 (08:15→20:42)
[2019-07-29] MEDS: INSULIN GLARGINE SOLOSTAR 100 UNITS/ML 3 ML PEN SQ SCH ×2 (08:16→20:43)
--- NOTE | 2019-07-29 08:41 | Pharmacy Report ---
Pharmacy Glycemic Short Note 2 - Date of Service July 29, 2019 - Glycemic Short BSG Results (Last 24 hours): 07/28/19 07/28/19 07/28/19 11:14 16:09 20:10 Glucose POC Glucose 165 H 115 H 159 H 07/29/19 07/29/19 06:11 07:34 Glucose 127 H POC Glucose 130 H OUTPATIENT ANTIDIABETIC REGIMEN: * Lantus 100 units SC qPM * Novolog 20 units TIDM + sliding scale up to 80 units daily * A1c = 7.5% ON 07/29/19 The patient is currently receiving: * Basal insulin: Lantus 40-50 units every 12 hours * Correctional Insulin: Novolog Correction per scale ACHS Goal Range: Low 120 mg/dL - High 160 mg/dL Correction Factor: 10 mg/dL/unit * Prandial insulin: Per carb ratio of 1 unit per 3 grams CHO consumed Risk Factors for Insulin Resistance: * Infection: PO doxycycline * Diet: T2DM - Assessment & Plan ASSESSMENT: 07/29 * Patient is currently receiving an average of 155 units of insulin per day * 90 units of basal insulin * 65 units of prandial/correctional insulin * BSGs ranging 127-165 over the past 24hrs * Risk factors for insulin resistance are constant over the past 24hrs -> however, Solu-medrol 40 mg q12h has now been initiated * Anticipating insulin regimen will need increased for the next 24hrs d/t : * Total daily dose = 155 therefore need to evenly re-distribute regimen 50%:50% basal:prandial to prevent hypo/hyperglycemia * Anticipate elevation in postprandial BSGs so will tighten CF/CR 07/28 * DF is a 73 year old female admitted to [facility] on 07/27 for shortness of breath * Patient has CHF (NYHA class III) with possible COPD exacerbation * Methylprednisolone 125 mg IV x 1 given at time of admission * BSGs ranging 150-314 mg/dL yesterday - patient received 123 units of insulin (50 units of basal and 73 units of prandial/correctional) * Pharmacy consulted for glycemic management afternoon of 07/28 given apparent insulin resistance and large variance in BSGs so far * At this point - will continue current ordered regimen, as BSGs appear controlled so far today, no steroids have been administered, and currently ordered Novolog corresponds with an estimated outpatient basal dose of 100 units * If BSGs trend up this evening will consider overnight checks * Patient on PO doxycycline for possible cellulitis/COPD exacerbation PLAN FOR INPATIENT GLYCEMIC CONTROL: * Basal insulin - continue with ordered scale to provide dosing based upon BSG in the setting of steroids being initiated * Lantus SQ BID per the following scale: * 30 units for BSG < 100 * 40 units for BSG 100-180 * 50 units for BSG > 180 * Bolus insulin - tighten goal range to provide tighter control in the setting of infection, tighten CF/CR in light of steroids starting * NovoLog per scale ACHS or Q6hrs while NPO * Goal Range: Low 110 mg/dL - High 150 mg/dL * Correction Factor: 8 mg/dL/unit * Nutritional / Prandial insulin per carb ratio of 1 unit per 2 grams CHO consumed PLAN FOR DISCHARGE: * A1c = 7.5% on 07/29/19 * Goal A1c < 8% based on age/comorbidities * Continue outpatient regimen on discharge
[2019-07-29] MEDS: DICLOFENAC SOD 1% GEL 100 GM TUBE EXT PRN ×2 (11:13→20:28)
[2019-07-29] MEDS: methylPREDNISolone 40 MG in SYRINGE 0 ML IV SCH ×2 (13:08→20:26)
--- NOTE | 2019-07-29 13:53 | XRay Report ---
XR foot RT min 3V routine CLINICAL HISTORY: right mid-foot pain; eval CPPD, etc COMPARISON STUDY: None. FINDINGS: Diffuse soft tissue swelling within the right foot most pronounced dorsally. Pes planus def ormity. No fracture or dislocation within the right foot. Mild vascular calcifications are noted. Puneet ntar and posterior calcaneal spurs are identified. The bones are osteopenic. Moderate osteoarthritis at the first tarsometatarsal joint. There is a 6 mm linear metallic foreign body seen within the dist al fourth toe. IMPRESSION: 1. A 6 mm linear metallic foreign body within the distal right fourth toe. 2. No fracture or dislocation within the right foot. 3. Diffuse osteopenia. 4. Diffuse soft tissue swelling. ACT 112: Negative or not required by law. Electronically signed by: Mehrdad Salinas M.D. 07/29/2019 1:52 PM
--- NOTE | 2019-07-29 13:56 | XRay Report ---
ABDOMEN 2 VIEWS HISTORY: abd distension, impaction? COMPARISON: Chest and abdominal series 03/04/2018. FINDINGS: No pneumoperitoneum. No pneumatosis. Distended gas-filled colon. There is gas within the re ctum. There are also a few mildly dilated gas-filled loops of small bowel within the left side the ab domen. The sigmoid colon is markedly distended measuring up to 13 cm in diameter. IMPRESSION: Distended gas-filled loops of large and small bowel. This is most pronounced at the sigmoid colon whi ch measures up to 13 cm in diameter. The appearance of the sigmoid colon raises the possibility of a sigmoid volvulus. Recommend dedicated abdomen and pelvis CT for further evaluation. These findings we re discussed with Dr. Briggs at 2:05 PM on 07/29/2019. ACT 112: Negative or not required by law. Electronically signed by: Mehrdad Salinas M.D. 07/29/2019 2:52 PM
[2019-07-29] MEDS: WARFARIN SOD 5 MG TAB PO SCH (16:53)
--- NOTE | 2019-07-29 18:10 | CT Scan Report ---
CT abd pelvis oral con only CT DOSE: 1853.31 mGy.cm HISTORY: Pain ?sigmoid volvulus? TECHNIQUE: Multiaxial CT images of the abdomen and pelvis were performed following the use of oral co ntrast. A dose lowering technique was utilized adhering to the principles of ALARA. COMPARISON STUDY: 02/28/2018 FINDINGS: Bibasilar atelectasis. Liver spleen and pancreas are grossly unremarkable. The colon is air-filled but does not appear to be distended. No significant small bowel distention. Kidneys negative for hydronephrosis. Cortical scarring of the kidneys is present bilaterally. IMPRESSION: 1. Mild nonspecific nonobstructive colonic ileus. 2. No evidence for a true obstructive pattern. 3. Mild small bowel nonobstructive ileus. ACT 112: Negative or not required by law. The above report was generated using voice recognition software. It may contain grammatical, syntax or spelling errors. Electronically signed by: Bharat Kitchen M.D. 07/29/2019 6:08 PM
--- NOTE | 2019-07-29 20:24 | Hospitalist Progress Note ---
Date of Service July 29, 2019 Assessment & Plan (1) Ileus: x-rays were obtained initially of abdomen - small/large bowel dilatation with ?sigmoid volvulus I then obtained CT abd/pelvis with PO contrast - ileus only; no obstruction; no sigmoid volvulus uncertain why she has developed this recheck K/mag in am if she develops nausea, emesis etc then downgrade her diet (2) Acute on chronic diastolic (congestive) heart failure: improving with stable BUN and Cr cont IV bumex at least until tomorrow repeat BMP/mag in am cont daily weights, etc appreciate CHF clinic consultation (3) Right foot pain: gout? pseudogout? no evidence of fracture or CPPD changes on x-rays today steroids being instituted for COPD should help the foot if it is an inflammatory arthropathy monitor response (4) COPD exacerbation: ongoing. institute IV steroids. Cont scheduled nebs. Finish PO doxy 100mg BID x 7 days (day number 3 of such). Flu PCR was negative at admission. (5) Cellulitis of both lower extremities: ruled out IV abx stopped on Saturday still no evidence of cellulitis of legs - chronic stasis changes only (6) Chronic venous insufficiency: See above diurese elevate legs etc (7) Obesity hypoventilation syndrome: CPAP HS (8) Hyperlipidemia: Continue simvastatin 20 mg every morning (9) Depression: Continue Escitalopram 10 mg daily (10) Hypertension: uncontrolled may need to adjust meds as BPs are now fairly consistent in high range if still high in am then increase meds (11) Restless leg syndrome: Continue ropinirole 1 mg p.o. at bedtime check Fe studies am (12) GERD (gastroesophageal reflux disease): Cont pantoprazole (13) Chronic kidney disease, stage III (moderate): stable in face of diuresis bmp am (14) Bilateral pulmonary embolism: history of cont home warfarin regimen repeat INR am (15) Hypothyroidism: Continue levothyroxine sodium 25 mcg daily TSH in 2019 was mildly low repeat TSH still low defer on synthroid adjustments repeat TSH in 4-6 weeks as outpatient (16) Morbid obesity with BMI of 50.0-59.9, adult: BMI 56 (17) Diabetes mellitus type 2, uncontrolled: pharmacy managing -- appreciate their assistance (18) DVT prophylaxis: warfarin with INR daily cont PT/OT Admission and Anticipated Discharge Date Admission Date: July 27, 2019 Subjective patient's cough/wheezing/dyspnea is feeling better but still not back to baseline. she has 2 new complaints - 1. abdominal bloating/distension - started last day or so. She did have large BM yesterday but despite such has continued to feel bloated. Passing little flatus. No nausea or vomiting but getting "filled up" quickly during meals. 2. right foot pain - started this am suddenly. middle of right foot on plantar aspect. hurts to bear weight because of it. no trauma. denies past h/o gout. Review of Systems Constitutional: no fever Respiratory: + dyspnea on exertion and + wheezing; no sputum production Cardiovascular: no chest pain Gastrointestinal: + bloating Psychiatric: + anxiety Physical Exam Constitutional: + morbidly obese; no acute distress and no altered mental status ENMT: external ear and nose normal, oropharynx normal Respiratory: no respiratory distress Auscultation: + diminished lung sounds (expiratory phase ), + crackles (bases) and + wheezes (b/l) Cardiovascular: Rate/Rhythm: regular rate and regular rhythm Heart Sounds: normal S1 and normal S2 Vessels: posterior tibial pulses present and dorsalis pedis pulses present; no JVD Extremities: + edema (lymphedema b/l with stasis changes) Gastrointestinal (Abdomen): Inspection/Auscultation: + abdomen distended (marked, especially upper abdomen ); + abnormal bowel sounds (decreased ) Percussion/Palpation: abdomen nontender and no hepatosplenomegaly Musculoskeletal: right foot - no synovitis of mid-foot, forefoot or toes, or ankle; however, mid-foot is tender to palpation Skin: no cellulitis either leg Psychiatric: A+Ox3, euthymic affect Results & Data ([facility]) Vital Signs (Past 12 Hours) Vital Signs Temp Pulse Resp BP Pulse Ox 07/29/19 19:31 89 18 95 07/29/19 18:55 37.5 C 87 23 170/80 H 95 07/29/19 16:50 80 22 96 07/29/19 15:28 36.7 C 76 24 182/75 H 97 07/29/19 11:18 36.5 C 70 20 144/71 H 93 Laboratory Results Laboratory Results - last 24 hr 07/29/19 07/29/19 07/29/19 06:11 06:11 06:11 WBC 8.54 RBC 3.94 L Hgb 10.2 L Hct 33.6 L MCV 85.3 MCH 25.9 MCHC 30.4 L RDW Std Deviation 51.5 H RDW Coeff of Joycelyn 16.5 H Plt Count 281 MPV 10.5 H PT 16.4 H INR 1.7 H Sodium Potassium Chloride Carbon Dioxide Anion Gap BUN Creatinine Est Cr Clr Drug Dosing Est GFR ( Amer) Est GFR (Non-Af Amer) BUN/Creatinine Ratio Glucose POC Glucose Estimat Average Glucose 169 Hemoglobin A1c 7.5 H Calcium 07/29/19 07/29/19 07/29/19 06:11 07:34 11:17 WBC RBC Hgb Hct MCV MCH MCHC RDW Std Deviation RDW Coeff of Joycelyn Plt Count MPV PT INR Sodium 141 Potassium 3.5 Chloride 109 H Carbon Dioxide 26 Anion Gap 6.0 BUN 36 H Creatinine 1.70 H Est Cr Clr Drug Dosing 40.8 Est GFR ( Amer) 34.3 Est GFR (Non-Af Amer) 29.6 BUN/Creatinine Ratio 21.1 H Glucose 127 H POC Glucose 130 H 192 H Estimat Average Glucose Hemoglobin A1c Calcium 9.1 07/29/19 16:32 WBC RBC Hgb Hct MCV MCH MCHC RDW Std Deviation RDW Coeff of Joycelyn Plt Count MPV PT INR Sodium Potassium Chloride Carbon Dioxide Anion Gap BUN Creatinine Est Cr Clr Drug Dosing Est GFR ( Amer) Est GFR (Non-Af Amer) BUN/Creatinine Ratio Glucose POC Glucose 173 H Estimat Average Glucose Hemoglobin A1c Calcium PG Care Time/CCT Total # of Minutes Spent Total Time Spent with Patient: Total time spent is greater than 50% in coordination of care (as documented) at patient's floor/unit and/or counseling patient: Coding Level of Care Code 01094 Subseq Hosp Care Lvl 3 Diagnoses Ileus K56.7 Acute on chronic diastolic (congestive) heart failure I50.33 Right foot pain M79.671 COPD exacerbation J44.1 Cellulitis of both lower extremities L03.115; L03.116 Chronic venous insufficiency I87.2 Obesity hypoventilation syndrome E66.2 Hyperlipidemia E78.2 Hyperlipidemia type: mixed hyperlipidemia Depression F32.89 Depression Type: other depression Hypertension I10 Hypertension type: essential hypertension Restless leg syndrome G25.81 GERD (gastroesophageal reflux disease) K21.9 Esophagitis presence: esophagitis presence not specified Chronic kidney disease, stage III (moderate) N18.3 Bilateral pulmonary embolism I26.99 Hypothyroidism E03.9 Hypothyroidism type: unspecified Morbid obesity with BMI of 50.0-59.9, adult E66.01; Z68.43 Diabetes mellitus type 2, uncontrolled E11.65 Glycemic state: with hyperglycemia DVT prophylaxis Z29.9 (1) Depression Depression Type: other depression Qualified Code(s): F32.89 - Other specified depressive episodes (2) Hyperlipidemia Hyperlipidemia type: mixed hyperlipidemia Qualified Code(s): E78.2 - Mixed hyperlipidemia (3) Hypothyroidism Hypothyroidism type: unspecified Qualified Code(s): E03.9 - Hypothyroidism, unspecified (4) Diabetes mellitus type 2, uncontrolled Glycemic state: with hyperglycemia Qualified Code(s): E11.65 - Type 2 diabetes mellitus with hyperglycemia (5) GERD (gastroesophageal reflux disease) Esophagitis presence: esophagitis presence not specified Qualified Code(s): K21.9 - Gastro-esophageal reflux disease without esophagitis (6) Hypertension Hypertension type: essential hypertension Qualified Code(s): I10 - Essential (primary) hypertension
[2019-07-29] MEDS: MAGNESIUM OXIDE 400 MG TAB PO SCH (20:26)
[2019-07-29] MEDS: SIMVASTATIN 20 MG TAB PO SCH (20:28)
[2019-07-29] MEDS: ROPINIROLE HCL 1 MG TABLET PO SCH (20:28)
[2019-07-30] MEDS: LEVALBUTEROL HCL 1.25 MG/3 ML NEB INH SCH ×4 (01:19→20:31)
[2019-07-30] MEDS: LEVOTHYROXINE SODIUM 75 MCG TABLET PO SCH (06:30)
[2019-07-30] MEDS: LEVOTHYROXINE SODIUM 200 MCG TABLET PO SCH (06:30)
[2019-07-30] MEDS: BUDESONIDE 0.5 MG/2 ML VIAL (PULMICORT) NEB SCH ×2 (07:10→20:31)
[2019-07-30 07:29] LABS: INR 1.7 (0.9-1.1); Prothrombin Time 16.7 Seconds (9.0-12.0)
[2019-07-30 07:42] LABS: BUN Creatinine Ratio 23.7 (10-20); Calcium 9.3 mg/dl (8.5-10.1); Creatinine Clr Calc Pharmacy 47.9 ml/min; Est GFR (African American) 40.6; Magnesium 1.8 mg/dl (1.8-2.4); Potassium 3.9 mmol/L (3.5-5.1)
[2019-07-30 07:47] LABS: Ferritin 63.1 ng/ml (8-388)
[2019-07-30] MEDS: methylPREDNISolone 40 MG in SYRINGE 0 ML IV SCH (08:14)
[2019-07-30] MEDS: PANTOprazole 40 MG TAB PO SCH (08:15)
[2019-07-30] MEDS: CHOLECALCIFEROL 1,000 UNITS 25 MCG TAB PO SCH (08:15)
[2019-07-30] MEDS: BUMETANIDE 2 MG in SYRINGE 0 ML IV SCH (08:15)
[2019-07-30] MEDS: INSULIN GLARGINE SOLOSTAR 100 UNITS/ML 3 ML PEN SQ SCH ×2 (08:16→21:42)
[2019-07-30] MEDS: INSULIN ASPART 100 UNITS/ML 3 ML PEN SC SCH ×4 (08:18→21:43)
[2019-07-30] MEDS: CYANOCOBALAMIN 500 MCG TABLET (VITAMIN B-12) PO SCH (08:18)
[2019-07-30] MEDS: LABETALOL HCL 200 MG TAB PO SCH (08:19)
[2019-07-30] MEDS: FERROUS SULFATE 325 MG TAB PO SCH (08:19)
[2019-07-30] MEDS: DOXYCYCLINE HYCLATE 100 MG CAP PO SCH ×2 (08:20→20:49)
[2019-07-30] MEDS: POTASSIUM CHLORIDE 20 MEQ TABCR PO SCH ×2 (08:20→20:48)
[2019-07-30] MEDS: FLUTICASONE/VILANTEROL 200/25MCG 14 PUFFS/INHALER INH SCH (08:20)
[2019-07-30] MEDS: ESCITALOPRAM OXALATE 10 MG TAB PO SCH (08:21)
[2019-07-30] MEDS: MAGNESIUM OXIDE 400 MG TAB PO SCH ×2 (08:21→17:02)
[2019-07-30] MEDS: BUMETANIDE 3 MG in SYRINGE 0 ML IV SCH ×2 (09:08→17:02)
[2019-07-30] MEDS ORDERED: BUMETANIDE 1 MG in SYRINGE 0 ML IV ONE (09:15)
[2019-07-30] MEDS: DICLOFENAC SOD 1% GEL 100 GM TUBE EXT PRN ×2 (09:23→21:43)
--- NOTE | 2019-07-30 09:33 | Pharmacy Report ---
Pharmacy Glycemic Short Note 2 - Date of Service July 30, 2019 - Glycemic Short BSG Results (Last 24 hours): 07/29/19 07/29/19 07/29/19 11:17 16:32 20:41 Glucose POC Glucose 192 H 173 H 267 H 07/30/19 07/30/19 06:28 07:27 Glucose 199 H POC Glucose 208 H OUTPATIENT ANTIDIABETIC REGIMEN: * Lantus 100 units SC qPM * Novolog 20 units TIDM + sliding scale up to 80 units daily * A1c = 7.5% ON 07/29/19 The patient is currently receiving: * Basal insulin: Lantus 40-50 units every 12 hours * Correctional Insulin: Novolog Correction per scale ACHS Goal Range: Low 120 mg/dL - High 160 mg/dL Correction Factor: 10 mg/dL/unit * Prandial insulin: Per carb ratio of 1 unit per 3 grams CHO consumed Risk Factors for Insulin Resistance: * Infection: PO doxycycline * Diet: T2DM - Assessment & Plan ASSESSMENT: 07/30 * Patient is currently receiving an average of 188 units of insulin per day * 90 units of basal insulin * 98 units of prandial/correctional insulin * BSGs ranging 173-267 over the past 24hrs * Risk factors for insulin resistance are CONSTANT over the past 24hrs; however, will be decreasing to prednisone 40 mg daily from 07/31 * Anticipating insulin regimen will need increased for today: * AM Fasting BSG = 208 therefore Basal insulin needs increased (will receive more today if 50 units BID given) * Post-prandial BSGs are elevated/BSGs rise throughout the day therefore Tighten CF/CR 07/29 * Patient is currently receiving an average of 155 units of insulin per day * 90 units of basal insulin * 65 units of prandial/correctional insulin * BSGs ranging 127-165 over the past 24hrs * Risk factors for insulin resistance are constant over the past 24hrs -> however, Solu-medrol 40 mg q12h has now been initiated * Anticipating insulin regimen will need increased for the next 24hrs d/t : * Total daily dose = 155 therefore need to evenly re-distribute regimen 50%:50% basal:prandial to prevent hypo/hyperglycemia * Anticipate elevation in postprandial BSGs so will tighten CF/CR 07/28 * DF is a 73 year old female admitted to [facility] on 07/27 for shortness of breath * Patient has CHF (NYHA class III) with possible COPD exacerbation * Methylprednisolone 125 mg IV x 1 given at time of admission * BSGs ranging 150-314 mg/dL yesterday - patient received 123 units of insulin (50 units of basal and 73 units of prandial/correctional) * Pharmacy consulted for glycemic management afternoon of 07/28 given apparent insulin resistance and large variance in BSGs so far * At this point - will continue current ordered regimen, as BSGs appear controlled so far today, no steroids have been administered, and currently ordered Novolog corresponds with an estimated outpatient basal dose of 100 units * If BSGs trend up this evening will consider overnight checks * Patient on PO doxycycline for possible cellulitis/COPD exacerbation PLAN FOR INPATIENT GLYCEMIC CONTROL: * Basal insulin - continue with ordered scale to provide dosing based upon BSG in the setting of steroids being titrated * Lantus SQ BID per the following scale: * 30 units for BSG < 100 * 40 units for BSG 100-180 * 50 units for BSG > 180 * Bolus insulin - tighten CF/CR since postprandial BSGs have been elevated; reassess tomorrow with reduced steroid dose * NovoLog per scale ACHS or Q6hrs while NPO * Goal Range: Low 110 mg/dL - High 150 mg/dL * Correction Factor: 6 mg/dL/unit * Nutritional / Prandial insulin per carb ratio of 1 unit per 2 grams CHO consumed PLAN FOR DISCHARGE: * A1c = 7.5% on 07/29/19 * Goal A1c < 8% based on age/comorbidities * Continue outpatient regimen on discharge
[2019-07-30] MEDS ORDERED: WARFARIN SOD 5 MG TAB PO SCH (16:00)
--- NOTE | 2019-07-30 20:13 | Hospitalist Progress Note ---
Date of Service July 30, 2019 Assessment & Plan (1) Ileus: improved. passing flatus/stool. tolerating diet. abd not as distended. K and Mag wnl today. uncertain why she has developed such but [id number] it is improving. encouraged more ambulation as that will help with such. (2) Acute on chronic diastolic (congestive) heart failure: weight trend even on standing scale is confusing - getting fairly large doses of IV bumex and, if anything, weights have gone up - which doesn't make sense. [id number] clinically she is feeling better, she sounds better on lung exam, and even her creatinine is improving. will give another dose of 3mg IV bumex later today then reassess for ongoing IV diuretic in am. appreciate CHF clinic assistance ([facility]). (3) Right foot pain: gout? pseudogout? no evidence of fracture or CPPD changes on x-rays regardless of etiology the pain is resolved today and patient can comfortably weight bear (4) COPD exacerbation: improved. stop IV steroids. transition to PO prednisone in am. Cont scheduled nebs. Finish PO doxy 100mg BID x 7 days (day number 4 of such). Flu PCR was negative at admission. (5) Cellulitis of both lower extremities: ruled out IV abx stopped on Saturday still no evidence of cellulitis of legs - chronic stasis changes only (6) Chronic venous insufficiency: See above diurese elevate legs etc (7) Obesity hypoventilation syndrome: CPAP HS (8) Hyperlipidemia: Continue simvastatin 20 mg every morning (9) Depression: Continue Escitalopram 10 mg daily (10) Hypertension: uncontrolled labetalol had been decreased at admission because of LOW BPs will increase labetalol to 600mg BID starting tonight monitor response (11) Restless leg syndrome: Continue ropinirole 1 mg p.o. at bedtime trans sat is low; ferritin is not above 100 (ferritin levels in RLS ideally should be >100) will supplement ferrous sulfate once GI issues are improved (12) GERD (gastroesophageal reflux disease): Cont pantoprazole (13) Chronic kidney disease, stage III (moderate): creatinine continues to remain stable bmp am (14) Bilateral pulmonary embolism: history of INR has remained subtherapeutic at 1.7 will adjust warfarin dose up today INR in am (15) Hypothyroidism: Continue levothyroxine sodium 25 mcg daily TSH in 2019 was mildly low repeat TSH still low defer on synthroid adjustments repeat TSH in 4-6 weeks as outpatient (16) Morbid obesity with BMI of 50.0-59.9, adult: BMI high 50s (17) Diabetes mellitus type 2, uncontrolled: pharmacy managing -- appreciate their assistance glycemic control quite acceptable in the face of steroid use (18) DVT prophylaxis: warfarin with INR daily cont PT/OT home with therapy services at discharge? grand-daughter updated at bedside d/c tele - move to med/surg Admission and Anticipated Discharge Date Admission Date: July 27, 2019 Subjective patient feeling MUCH better today right foot pain is gone - can weight-bear without difficulty breathing is doing MUCH better - cough, wheezing, and dyspnea all improved eating better no nausea passing flatus and stool abdomen less distended today telemetry overnight wnl Review of Systems 2 Constitutional: no fever and no chills Cardiovascular: no chest pain Gastrointestinal: + bloating; no nausea and no vomiting Physical Exam Constitutional: + morbidly obese; no acute distress and no altered mental status ENMT: external ear and nose normal, oropharynx normal Respiratory: no respiratory distress Auscultation: + diminished lung sounds (bases ); no crackles and no wheezes Cardiovascular: Rate/Rhythm: regular rate and regular rhythm Heart Sounds: normal S1 and normal S2 Vessels: posterior tibial pulses present and dorsalis pedis pulses present; no JVD Extremities: + edema (lymphedema b/l with stasis changes) Gastrointestinal (Abdomen): Inspection/Auscultation: + abdomen distended (slightly improved today ) and normal bowel sounds Percussion/Palpation: abdomen nontender and no hepatosplenomegaly Musculoskeletal: right foot - nontender to palpation today Skin: stasis changes b/l legs without superimposed cellulitis Psychiatric: A+Ox3, euthymic affect Results & Data ([facility]) Vital Signs (Past 12 Hours) Vital Signs Temp Pulse Pulse Resp BP Pulse Ox 07/30/19 15:12 36.4 C L 75 18 145/71 H 93 07/30/19 13:25 36.6 C 67 20 178/71 H 94 07/30/19 13:24 66 18 94 Laboratory Results Laboratory Results - last 24 hr 07/30/19 07/30/19 07/30/19 06:28 06:28 07:27 PT 16.7 H INR 1.7 H Sodium 140 Potassium 3.9 Chloride 107 Carbon Dioxide 26 Anion Gap 6.0 BUN 35 H Creatinine 1.48 H Est Cr Clr Drug Dosing 47.9 Est GFR ( Amer) 40.6 Est GFR (Non-Af Amer) 35.0 BUN/Creatinine Ratio 23.7 H Glucose 199 H POC Glucose 208 H Calcium 9.3 Magnesium 1.8 Iron 17 L Transferrin 203 Transferrin % Sat 6 L Ferritin 63.1 07/30/19 07/30/19 07/30/19 11:29 17:19 20:20 PT INR Sodium Potassium Chloride Carbon Dioxide Anion Gap BUN Creatinine Est Cr Clr Drug Dosing Est GFR ( Amer) Est GFR (Non-Af Amer) BUN/Creatinine Ratio Glucose POC Glucose 217 H 155 H 204 H Calcium Magnesium Iron Transferrin Transferrin % Sat Ferritin PG Care Time/CCT Total # of Minutes Spent Total Time Spent with Patient: Total time spent is greater than 50% in co ordination of care (as documented) at patient's floor/unit and/or counseling patient: Coding Level of Care Code 90663 Subseq Hosp Care Lvl 3 Diagnoses Ileus K56.7 Acute on chronic diastolic (congestive) heart failure I50.33 Right foot pain M79.671 COPD exacerbation J44.1 Cellulitis of both lower extremities L03.115; L03.116 Chronic venous insufficiency I87.2 Obesity hypoventilation syndrome E66.2 Hyperlipidemia E78.2 Hyperlipidemia type: mixed hyperlipidemia Depression F32.89 Depression Type: other depression Hypertension I10 Hypertension type: essential hypertension Restless leg syndrome G25.81 GERD (gastroesophageal reflux disease) K21.9 Esophagitis presence: esophagitis presence not specified Chronic kidney disease, stage III (moderate) N18.3 Bilateral pulmonary embolism I26.99 Hypothyroidism E03.9 Hypothyroidism type: unspecified Morbid obesity with BMI of 50.0-59.9, adult E66.01; Z68.43 Diabetes mellitus type 2, uncontrolled E11.65 Glycemic state: with hyperglycemia DVT prophylaxis Z29.9 (1) Depression Depression Type: other depression Qualified Code(s): F32.89 - Other specified depressive episodes (2) Hyperlipidemia Hyperlipidemia type: mixed hyperlipidemia Qualified Code(s): E78.2 - Mixed hyperlipidemia (3) Hypothyroidism Hypothyroidism type: unspecified Qualified Code(s): E03.9 - Hypothyroidism, unspecified (4) Diabetes mellitus type 2, uncontrolled Glycemic state: with hyperglycemia Qualified Code(s): E11.65 - Type 2 diabetes mellitus with hyperglycemia (5) GERD (gastroesophageal reflux disease) Esophagitis presence: esophagitis presence not specified Qualified Code(s): K21.9 - Gastro-esophageal reflux disease without esophagitis (6) Hypertension Hypertension type: essential hypertension Qualified Code(s): I10 - Essential (primary) hypertension
[2019-07-30] MEDS: ROPINIROLE HCL 1 MG TABLET PO SCH (20:48)
[2019-07-30] MEDS: LABETALOL HCL 300 MG TAB PO SCH (20:49)
[2019-07-30] MEDS: SIMVASTATIN 20 MG TAB PO SCH (20:49)
[2019-07-31] MEDS: LEVALBUTEROL HCL 1.25 MG/3 ML NEB INH SCH ×4 (01:07→19:54)
[2019-07-31] MEDS: LEVOTHYROXINE SODIUM 200 MCG TABLET PO SCH (04:58)
[2019-07-31] MEDS: LEVOTHYROXINE SODIUM 75 MCG TABLET PO SCH (04:58)
[2019-07-31] MEDS: ACETAMINOPHEN 325 MG TAB PO PRN (05:11)
[2019-07-31] MEDS: BUDESONIDE 0.5 MG/2 ML VIAL (PULMICORT) NEB SCH ×2 (07:12→19:54)
[2019-07-31] MEDS: MAGNESIUM OXIDE 400 MG TAB PO SCH ×2 (07:46→16:25)
[2019-07-31] MEDS: CYANOCOBALAMIN 500 MCG TABLET (VITAMIN B-12) PO SCH (07:56)
[2019-07-31] MEDS: predniSONE 20 MG TAB PO SCH (07:56)
[2019-07-31] MEDS: FLUTICASONE/VILANTEROL 200/25MCG 14 PUFFS/INHALER INH SCH (07:56)
[2019-07-31] MEDS: PANTOprazole 40 MG TAB PO SCH (07:56)
[2019-07-31] MEDS: ESCITALOPRAM OXALATE 10 MG TAB PO SCH (07:56)
[2019-07-31] MEDS: DOXYCYCLINE HYCLATE 100 MG CAP PO SCH ×2 (07:56→20:40)
[2019-07-31] MEDS: FERROUS SULFATE 325 MG TAB PO SCH (07:56)
[2019-07-31] MEDS: LABETALOL HCL 300 MG TAB PO SCH ×2 (07:56→20:36)
[2019-07-31] MEDS: POTASSIUM CHLORIDE 20 MEQ TABCR PO SCH ×2 (07:56→20:35)
[2019-07-31] MEDS: CHOLECALCIFEROL 1,000 UNITS 25 MCG TAB PO SCH (07:57)
[2019-07-31] MEDS: INSULIN ASPART 100 UNITS/ML 3 ML PEN SC SCH ×4 (08:08→20:37)
[2019-07-31] MEDS ORDERED: NovoLIN-N (NPH) PER UNIT CHARGE SQ ONE (09:00)
[2019-07-31] MEDS ORDERED: SIMETHICONE 80 MG CHEW PO PRN (09:41)
[2019-07-31 10:29] LABS: BUN Creatinine Ratio 27.7 (10-20); Calcium 9.4 mg/dl (8.5-10.1); Creatinine Clr Calc Pharmacy 38.6 ml/min; Est GFR (African American) 31.2; Est GFR (Non-African American) 26.9; Magnesium 1.9 mg/dl (1.8-2.4); Potassium 3.6 mmol/L (3.5-5.1)
--- NOTE | 2019-07-31 11:47 | Pharmacy Report ---
Pharmacy Glycemic Short Note 2 - Date of Service July 31, 2019 - Glycemic Short BSG Results (Last 24 hours): 07/30/19 07/30/19 07/31/19 17:19 20:20 07:34 Glucose POC Glucose 155 H 204 H 126 H 07/31/19 07/31/19 09:51 11:37 Glucose 207 H POC Glucose 201 H OUTPATIENT ANTIDIABETIC REGIMEN: * Lantus 100 units SC qPM * Novolog 20 units TIDM + sliding scale up to 80 units daily * A1c = 7.5% ON 07/29/19 The patient is currently receiving: * Basal insulin: Lantus 40-50 units every 12 hours * Correctional Insulin: Novolog Correction per scale ACHS Goal Range: Low 120 mg/dL - High 160 mg/dL Correction Factor: 10 mg/dL/unit * Prandial insulin: Per carb ratio of 1 unit per 3 grams CHO consumed Risk Factors for Insulin Resistance: * Infection: PO doxycycline * Diet: T2DM - Assessment & Plan ASSESSMENT: * AM fasting BSG now in goal range after Lantus 100 units total administered yesterday * Post-prandial elevations yesterday noted, likely steroid induced. Changed to qAM prednisone starting today * Will provide NPH as basal insulin this AM 2nd prednisone starting. Will continue Lantus qPM as this is the time of day patient takes at home. * Will tighten CHO ratio 2nd persistent post-prandial elevations PLAN FOR INPATIENT GLYCEMIC CONTROL: * Basal insulin * Insulin NPH 30 units SC qAM * Lantus 50-70 units SC qPM based on BSG (see MAR for details) * Bolus insulin * NovoLog per scale ACHS or Q6hrs while NPO * Goal Range: Low 120 mg/dL - High 150 mg/dL * Correction Factor: 6 mg/dL/unit * Nutritional / Prandial insulin per carb ratio of 1 unit per 1.5 grams CHO consumed PLAN FOR DISCHARGE: * See 07/30 note
--- NOTE | 2019-07-31 15:51 | Heart Failure Progress Note ---
Date of Service July 31, 2019 Assessment & Plan (1) Fluid overload: (2) Chronic venous insufficiency: (3) Obesity hypoventilation syndrome: (4) Morbid obesity: (5) COPD exacerbation: 1. Chronic diastolic CHF/Hypervolemia: She has a difficult exam, but appears improved from earlier in her hospitalization. If her weight is accurate it is down quite a bit from her dry weight. Reason for exacerbation likely dietary indiscretion combined with COPD. Her lower extremity edema is chronic likely secondary to venous insufficiency, see below. Her dyspnea is very chronic- likely multifactorial including chronic diastolic heart failure, COPD, morbid obesity, and deconditioning/chronic knee pain. Kidney function actually improved with diuretics but is now increasing again. Diuretics were held today. She can likely be discharged on her home dose of Bumex 4 mg in am/2mg in pm. She was instructed to re-establish her dry weight on her home scale once she is discharged. Recommend fluid restriction of 1,500 mL daily. Daily standing weights. Low sodium diet, less than 2,000 mg daily. 2. Hypertension: Slightly elevated. Continue monitoring and current medical therapy. 3. 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 She had a repeat ultrasound 2019 that confirms reflux of the GSV amenable to ablation. Continue compression stockings. Elevate lower extremities as much as possible. High risk for recurren t cellulitis. 4. Obesity: Diet and weight loss recommended. 5. COPD: Follows closely with pulmonary. Continue nebulizer treatments. Consider referral to COPD clinic. Disposition: Patient is scheduled for heart failure follow up on Saturday08/03/19 at 10:00am Subjective Patient feeling significantly improved today. Shortness of breath is resolving. Her abdominal and lower extremity edema improved. Her weight is below her typical baseline at 322 lb. She has a positive fluid balance but is incontinent so it is likely not accurate. Results & Data Vital Signs (Past 12 Hours) Vital Signs Temp Pulse Resp BP Pulse Ox 07/31/19 15:07 97.9 F 70 20 160/73 H 93 07/31/19 13:53 73 18 95 07/31/19 07:28 97.9 F 68 18 121/75 93 07/31/19 07:16 67 20 95 PG Care Time/CCT Total # of Minutes Spent Total Time Spent with Patient: Total time spent is greater than 50% in coordination of care (as documented) at patient's floor/unit and/or counseling patient: Coding Level of Care Code None Diagnoses Fluid overload E87.70 Hypervolemia type: unspecified Chronic venous insufficiency I87.2 Obesity hypoventilation syndrome E66.2 Morbid obesity E66.01 COPD exacerbation J44.1 (1) Fluid overload Hypervolemia type: unspecified Qualified Code(s): E87.70 - Fluid overload, unspecified
[2019-07-31] MEDS: WARFARIN SOD 5 MG TAB PO SCH (16:25)
--- NOTE | 2019-07-31 20:14 | Hospitalist Progress Note ---
Date of Service July 31, 2019 Assessment & Plan (1) Ileus: improved. passing flatus/stool. tolerating diet. K and Mag cont to be wnl today. uncertain why she has developed this. patient states when she was admitted 02/2019 she also had similar issues. I reviewed those records - no mention of abd distension or ileus. [id number] I encouraged more ambulation. mylicon prn ordered as well. (2) Acute on chronic diastolic (congestive) heart failure: acute component clinically resolved. and, BUN with Cr allyssa overnight suggesting we are euvolemic or slightly dry intravascularly. hold diuretics today. repeat BMP am. need to decide on bumex dosing at discharge. (3) Right foot pain: gout? pseudogout? no evidence of fracture or CPPD changes on x-rays regardless of etiology the pain is resolved (4) COPD exacerbation: improved/resolved. transition to PO prednisone today; taper over ~7 days. Cont scheduled nebs. Finish PO doxy 100mg BID x 7 days (day number 5 of such). Flu PCR was negative at admission. (5) Cellulitis of both lower extremities: ruled out IV abx stopped on Saturday still no evidence of cellulitis of legs - chronic stasis changes only (6) Chronic venous insufficiency: See above diurese elevate legs etc (7) Obesity hypoventilation syndrome: CPAP HS (8) Hyperlipidemia: Continue simvastatin 20 mg every morning (9) Depression: Continue Escitalopram 10 mg daily (10) Hypertension: uncontrolled labetalol had been decreased at admission because of LOW BPs will increase labetalol to 600mg BID starting tonight monitor response (11) Restless leg syndrome: Continue ropinirole 1 mg p.o. at bedtime trans sat is low; ferritin is not above 100 (ferritin levels in RLS ideally should be >100) will supplement ferrous sulfate once GI issues are improved (12) GERD (gastroesophageal reflux disease): Cont pantoprazole (13) Chronic kidney disease, stage III (moderate): mild rise in Creatinine overnight hold diuretics repeat BMP (14) Bilateral pulmonary embolism: history of INR has remained subtherapeutic at 1.7 during this stay coumadin dose increased modestly INR in am (15) Hypothyroidism: Continue levothyroxine sodium 25 mcg daily TSH in 2019 was mildly low repeat TSH still low defer on synthroid adjustments repeat TSH in 4-6 weeks as outpatient (16) Morbid obesity with BMI of 50.0-59.9, adult: BMI high 50s (17) Diabetes mellitus type 2, uncontrolled: pharmacy managing -- appreciate their assistance BSGs adequate at this time (18) DVT prophylaxis: warfarin with INR daily cont PT/OT home with therapy services at discharge daughter updated at bedside today Admission and Anticipated Discharge Date Admission Date: July 27, 2019 Anticipated date of discharge: 08/01/19 Subjective c/o gas/abdominal bloating again today. however, she is passing plenty of flatus and had BM last pm and another today. eating fine w/o limitation; no nausea or emesis. breathing is good today; no dyspnea or wheezing. she inquires about taking an anxiety medication. she states she would likely just take it PRN and particularly when she leaves her home (gets nervous when she leaves her house, etc). Review of Systems Constitutional: no fever, no chills, no fatigue and no anorexia Respiratory: + dyspnea on exertion (at baseline); no cough and no wheezing Cardiovascular: no chest pain Gastrointestinal: + bloating; no abdominal pain, no nausea and no vomiting Physical Exam Constitutional: + morbidly obese; no acute distress and no altered mental status looks great today ENMT: external ear and nose normal, oropharynx normal Respiratory: no respiratory distress Auscultation: no crackles and no wheezes Cardiovascular: Rate/Rhythm: regular rate and regular rhythm Heart Sounds: normal S1 and normal S2 Vessels: posterior tibial pulses present and dorsalis pedis pulses present; no JVD Extremities: + edema (lymphedema b/l with stasis changes but overall edema is much improved) Gastrointestinal (Abdomen): normal bowel sounds, soft, nontender, no hepatosplenomegaly Inspection/Auscultation: + abdomen distended (again improved today ) and normal bowel sounds Percussion/Palpation: abdomen nontender and no hepatosplenomegaly Psychiatric: A+Ox3, euthymic affect Results & Data ([facility]) Vital Signs (Past 12 Hours) Vital Signs Temp Pulse Resp BP Pulse Ox 07/31/19 15:07 36.6 C 70 20 160/73 H 93 07/31/19 13:53 73 18 95 Laboratory Results Laboratory Results - last 24 hr 07/30/19 07/31/19 07/31/19 20:20 07:34 09:51 Sodium 141 Potassium 3.6 Chloride 107 Carbon Dioxide 25 Anion Gap 9.0 BUN 51 H Creatinine 1.84 H D Est Cr Clr Drug Dosing 38.6 Est GFR ( Amer) 31.2 Est GFR (Non-Af Amer) 26.9 BUN/Creatinine Ratio 27.7 H Glucose 207 H POC Glucose 204 H 126 H Calcium 9.4 Magnesium 1.9 07/31/19 07/31/19 07/31/19 11:37 16:47 20:06 Sodium Potassium Chloride Carbon Dioxide Anion Gap BUN Creatinine Est Cr Clr Drug Dosing Est GFR ( Amer) Est GFR (Non-Af Amer) BUN/Creatinine Ratio Glucose POC Glucose 201 H 84 128 H Calcium Magnesium PG Care Time/CCT Total # of Minutes Spent Total Time Spent with Patient: Total time spent is greater than 50% in coordination of care (as documented) at patient's floor/unit and/or counseling patient: Coding Level of Care Code 38004 Subseq Hosp Care Lvl 3 Diagnoses Ileus K56.7 Acute on chronic diastolic (congestive) heart failure I50.33 Right foot pain M79.671 COPD exacerbation J44.1 Cellulitis of both lower extremities L03.115; L03.116 Chronic venous insufficiency I87.2 Obesity hypoventilation syndrome E66.2 Hyperlipidemia E78.2 Hyperlipidemia type: mixed hyperlipidemia Depression F32.89 Depression Type: other depression Hypertension I10 Hypertension type: essential hypertension Restless leg syndrome G25.81 GERD (gastroesophageal reflux disease) K21.9 Esophagitis presence: esophagitis presence not specified Chronic kidney disease, stage III (moderate) N18.3 Bilateral pulmonary embolism I26.99 Hypothyroidism E03.9 Hypothyroidism type: unspecified Morbid obesity with BMI of 50.0-59.9, adult E66.01; Z68.43 Diabetes mellitus type 2, uncontrolled E11.65 Glycemic state: with hyperglycemia DVT prophylaxis Z29.9 (1) Depression Depression Type: other depression Qualified Code(s): F32.89 - Other specified depressive episodes (2) Hyperlipidemia Hyperlipidemia type: mixed hyperlipidemia Qualified Code(s): E78.2 - Mixed hyperlipidemia (3) Hypothyroidism Hypothyroidism type: unspecified Qualified Code(s): E03.9 - Hypothyroidism, unspecified (4) Diabetes mellitus type 2, uncontrolled Glycemic state: with hyperglycemia Qualified Code(s): E11.65 - Type 2 diabetes mellitus with hyperglycemia (5) GERD (gastroesophageal reflux disease) Esophagitis presence: esophagitis presence not specified Qualified Code(s): K21.9 - Gastro-esophageal reflux disease without esophagitis (6) Hypertension Hypertension type: essential hypertension Qualified Code(s): I10 - Essential (primary) hypertension
[2019-07-31] MEDS: ROPINIROLE HCL 1 MG TABLET PO SCH (20:40)
[2019-07-31] MEDS: SIMVASTATIN 20 MG TAB PO SCH (20:41)
[2019-07-31] MEDS: DICLOFENAC SOD 1% GEL 100 GM TUBE EXT PRN (20:47)
[2019-07-31] MEDS ORDERED: INSULIN GLARGINE SOLOSTAR 100 UNITS/ML 3 ML PEN SC SCH (21:00)
[2019-08-01] MEDS: LEVALBUTEROL HCL 1.25 MG/3 ML NEB INH SCH ×3 (02:43→13:22)
[2019-08-01] MEDS: LEVOTHYROXINE SODIUM 200 MCG TABLET PO SCH (06:09)
[2019-08-01] MEDS: LEVOTHYROXINE SODIUM 75 MCG TABLET PO SCH (06:09)
[2019-08-01] MEDS: BUDESONIDE 0.5 MG/2 ML VIAL (PULMICORT) NEB SCH (07:18)
[2019-08-01 07:45] LABS: INR 2.4 (0.9-1.1); Prothrombin Time 23.2 Seconds (9.0-12.0)
[2019-08-01] MEDS: PANTOprazole 40 MG TAB PO SCH (07:48)
[2019-08-01] MEDS: predniSONE 20 MG TAB PO SCH (07:48)
[2019-08-01] MEDS: MAGNESIUM OXIDE 400 MG TAB PO SCH (07:48)
[2019-08-01] MEDS: LABETALOL HCL 300 MG TAB PO SCH (07:48)
[2019-08-01] MEDS: CHOLECALCIFEROL 1,000 UNITS 25 MCG TAB PO SCH (07:49)
[2019-08-01] MEDS: FLUTICASONE/VILANTEROL 200/25MCG 14 PUFFS/INHALER INH SCH (07:49)
[2019-08-01] MEDS: CYANOCOBALAMIN 500 MCG TABLET (VITAMIN B-12) PO SCH (07:49)
[2019-08-01] MEDS: DOXYCYCLINE HYCLATE 100 MG CAP PO SCH (07:49)
[2019-08-01] MEDS: FERROUS SULFATE 325 MG TAB PO SCH (07:49)
[2019-08-01] MEDS: POTASSIUM CHLORIDE 20 MEQ TABCR PO SCH (07:50)
[2019-08-01] MEDS: ESCITALOPRAM OXALATE 10 MG TAB PO SCH (07:50)
[2019-08-01 08:01] LABS: BUN Creatinine Ratio 26.3 (10-20); Calcium 9.3 mg/dl (8.5-10.1); Creatinine Clr Calc Pharmacy 38.7 ml/min; Est GFR (Non-African American) 27.6; Potassium 3.6 mmol/L (3.5-5.1)
[2019-08-01] MEDS: INSULIN ASPART 100 UNITS/ML 3 ML PEN SC SCH ×2 (08:23→12:15)
[2019-08-01] MEDS ORDERED: INSULIN HUMAN NPH SC SCH (09:00)
--- NOTE | 2019-08-01 10:28 | Pharmacy Report ---
Pharmacy Glycemic Short Note 2 - Date of Service August 01, 2019 - Glycemic Short BSG Results (Last 24 hours): 07/31/19 07/31/19 07/31/19 09:51 11:37 16:47 Glucose 207 H POC Glucose 201 H 84 07/31/19 08/01/19 08/01/19 20:06 07:11 07:48 Glucose 115 H POC Glucose 128 H 120 H OUTPATIENT ANTIDIABETIC REGIMEN: * Lantus 100 units SC qPM * Novolog 20 units TIDM + sliding scale up to 80 units daily * A1c = 7.5% ON 07/29/19 - Assessment & Plan ASSESSMENT: * Patient is currently receiving an average of 170 units of insulin per day * 80 units of basal insulin * 89 units of prandial/correctional insulin * BSGs ranging 60-201 over the past 24hrs * Risk factors for insulin resistance are constant over the past 24hrs * Steroid dosing unchanged * Anticipating insulin regimen will need decreased for the next 24hrs d/t : * Hypoglycemia at lunch today (60 mg/dL) - NPH has been increased slightly d/t elevated postprandials yesterday so will loosen Novolog parameters to p rovide ~1/2 of previous doses 07/31 * AM fasting BSG now in goal range after Lantus 100 units total administered yesterday * Post-prandial elevations yesterday noted, likely steroid induced. Changed to qAM prednisone starting today * Will provide NPH as basal insulin this AM 2nd prednisone starting. Will continue Lantus qPM as this is the time of day patient takes at home. * Will tighten CHO ratio 2nd persistent post-prandial elevations PLAN FOR INPATIENT GLYCEMIC CONTROL: * Basal insulin * NPH 35 units SC qAM (increased from 30 units) * Lantus 50-60 units SC qPM based on BSG (see MAR for details) * Bolus insulin - loosen CF/CR * NovoLog per scale ACHS or Q6hrs while NPO * Goal Range: Low 120 mg/dL - High 150 mg/dL * Correction Factor: 8 mg/dL/unit AC -> 10 mg/dL/unit at HS * Nutritional / Prandial insulin per carb ratio of 1 unit per 4 grams CHO consumed -> 1 unit per 5 gm CHO at HS PLAN FOR DISCHARGE: * See 07/30 note
--- NOTE | 2019-08-01 10:43 | Discharge Summary ---
Date of Service date of admission - July 27, 2019 date of discharge - August 01, 2019 Admission HPI Per Admitting Provider The patient is a 73-year-old female with a past medical history including CKD stage III, cervical disc disease, venous stasis ulcerations, obesity hypoventila tion syndrome, hyperlipidemia, hypertension, CHF NYHA class III, depression, diabetic nephropathy, gait disturbance, mild mitral stenosis, mitral regurgitation, nonproliferative diabetic retinopathy, obstructive sleep apnea, uncontrolled diabetes mellitus with kidney complication, restless leg syndrome, depression, GERD, anemia, vitamin D deficiency, hypothyroidism and bilateral pulmonary embolism. She presents to the emergency department with progressively worsening generalized fatigue and shortness of breath. Principal Diagnosis COPD exacerbation/acute bronchitis Discharge Exam Constitutional + morbidly obese; no acute distress and no altered mental status ENMT external ear and nose normal, oropharynx normal Respiratory no respiratory distress Auscultation: + wheezes (minimal - b/l ); no crackles Cardiovascular Rate/Rhythm: regular rate and regular rhythm Heart Sounds: normal S1 and normal S2 Vessels: posterior tibial pulses present and dorsalis pedis pulses present; no JVD Extremities: + edema (lymphedema b/l with stasis changes but overall edema is much improved) Gastrointestinal (Abdomen) normal bowel sounds, soft, nontender, no hepatosplenomegaly Inspection/Auscultation: + abdomen distended (again improved today ) and normal bowel sounds Percussion/Palpation: abdomen nontender and no hepatosplenomegaly Psychiatric Orientation: alert and oriented x 3 Mood: + anxious mood Discharge Data Allergies Allergy/AdvReac Type Severity Reaction Status Date / Time ibuprofen Allergy Intermediate HIVES Verified 07/27/19 02:09 lisinopril AdvReac Mild COUGH Verified 07/27/19 02:09 pramipexole AdvReac Unknown Verified 07/27/19 02:09 zolpidem AdvReac drowsinesss Verified 07/27/19 02:09 Consultations PT, OT [facility] clinic Ordered Studies CT abd pelvis oral con only - IMPRESSION: 1. Mild nonspecific nonobstructive colonic ileus. 2. No evidence for a true obstructive pattern. 3. Mild small bowel nonobstructive ileus. Hospital Course (1) COPD exacerbation: Improved/resolved with IV steroids, then transitioned to PO prednisone. Will complete a taper of prednisone after discharge. Will take 2 additional days of doxycycline at home for total 7-day course. O2 was weaned off prior to discharge home. A referral has been made to the [facility] COPD clinic for post-discharge care. (2) Acute on chronic diastolic (congestive) heart failure: Acute component clinically resolved with IV bumex while here. Discharge weight was 142kg. She will take 4mg of bumex QAM, and 2mg of bumex Qafternoon. CHF clinic follow-up has been arranged for the week following discharge. (3) Ileus: Early on in her stay she developed significant abdominal distension. Despite such she continued to pass flatus/stool and tolerated a diet. CT showed a mild ileus of both the large and small bowel. No SBO or other obstructive process was seen. Uncertain why she developed this. Patient stated when she was admitted 02/2019 she also had similar issues. Symptoms gradually improved through the stay and she was moving her bowels regularly. Abd distension also improved. K and mag levels remained adequate. I encouraged her to ambulate more and can use mylicon prn. (4) Right foot pain: gout? pseudogout? no evidence of fracture or CPPD changes on x-rays regardless of etiology the pain resolved with steroids suggesting inflammatory etiology (5) Cellulitis of both lower extremities: ruled out no evidence of cellulitis of legs - chronic stasis changes only (6) Chronic venous insufficiency: See above remain on diuretics elevate legs when not ambulatory consider compression stockings etc (7) Obesity hypoventilation syndrome: CPAP HS (8) Hyperlipidemia: Continue simvastatin 20 mg every morning (9) Depression: Continue Escitalopram 10 mg daily (10) Hypertension: uncontrolled during her stay, possibly due to volume overload, possibly due to steroids. labetalol had been decreased at admission because of LOW BPs. at discharge I increased her labetalol back to 600mg BID. outpatient follow-up needed. (11) Restless leg syndrome: Continue ropinirole HS trans sat is low; ferritin is not above 100 (ferritin levels in RLS ideally should be >100) will supplement ferrous sulfate follow iron studies as outpatient (12) GERD (gastroesophageal reflux disease): Cont pantoprazole (13) Chronic kidney disease, stage III (moderate): creatinine was 1.8 at discharge. resume bumex 24 hours post-discharge on 08/02/2019. (14) Bilateral pulmonary embolism: history of INR 2.4 at discharge advised repeat INR in 2 days post-discharge for stabiity regimen - * 5mg coumadin Mon/Sat/Fri * 2.5mg coumadin //Sat/Sun (15) Hypothyroidism: Continue levothyroxine sodium 25 mcg daily TSH in 2019 was mildly low repeat TSH still low deferred on synthroid adjustments during this visit repeat TSH in 4-6 weeks as outpatient (16) Morbid obesity with BMI of 50.0-59.9, adult: BMI high 50s (17) Diabetes mellitus type 2, uncontrolled: pharmacy managed her glycemic control while here control was satisfactory throughout her stay she will resume her normal regimen of meds at discharge (18) Anemia: Patient voiced considerable problems with this in the hospital and at home. Given a trial dose of buspar and tolerated this. Gave a prescription of buspar to use on PRN basis at home. Total Time Total Time Spent Total Time Spent (In Minutes): 45 Total Time Includes: Examination of the Patient, Discharge Planning and Medication Reconciliation Discharge Plan Discharge Items Patient Disposition: Home - Home Health Services Reason For Visit: COPD Exacerbation Discharge Diagnosis: 1. COPD exacerbation - improved 2. Fluid retention in the lungs due to congestive heart failure - improved 3. excess gas throughout the intestines ("ileus") - improved 4. anxiety Activity: As commented below Activity Comment: gradually increase activities over the next 5 days Non-emergency contact: Primary Care Provider, Power Transformer Inspector and Political Consultant Call non-emergency contact if: you have any medication questions, your symptoms worsen and you have a fever Follow-up/Referrals: Jorge Barney MD [Primary Care Provider] - 08/06/19 1:15 pm (Your appointment is with the doctor's physician information assistant, Alanna Schwartz. If you need to change this appointment, please call [phone] ) Carmen Roth PA-C [Physician Quality Controller] - 08/07/19 10:00 am (Please, follow-up at [facility] Pul[facility] with Cramen Roth PA-C on SaturdayAugust 06 at 10:00 am. *If you need to change this appointment, call the office at [phone].) Leslie Ortega PA-C [Physician Quality Controller] - 08/03/19 10:00 am (Congestive Heart Failure Program Appointment Information Early follow up is essential to managing your heart failure. An appointment has been scheduled for you with the [facility] within 7 days of discharge. Anticipate this visit to be 30-60 minutes long. Please expect a supervisor histology phone call from one of our nurses approximately 48 hours from discharge. They will also be placing an order for lab work to be completed 1-2 days prior to your heart failure follow up appointment. Please be sure to have this done so we can go over the results when you come in. Office Location The cardiology office building is located in front of the hospital at [address] Bring the following with you to your follow-up doctor appointments: Please bring your daily weight log any discharge paperwork all of your medication bottles with you to this visit. ) Diet: Carb Consistent or DM2 and Heart Healthy Fluids: 1800ml (7 cups) Addtl Attending Provider Instructions: You were treated for the problems listed above in "discharge diagnoses." Your breathing difficulties was likely due to a combination of fluid retention in the lungs (congestive heart failure) and bronchitis/respiratory illness/COPD. You improved with intravenous diuretics for the fluid and steroids/neb treatments for the COPD. Recommendations: 1. take doxycycline antibiotic x 4 more doses starting TONIGHT. This antibiotic occasionally causes heartburn. 2. take prednisone taper starting TOMORROW, 08/02/2019. The directions will be on the bottle. 3. use your nebulizer treatments 3-4 times each day for another 5-6 days then use as needed after that. 4. use buspar (buspirone) 5mg up to twice a day as needed for anxiety. 5. diuretic (water) pills - bumex (bumetanide) - start back TOMORROW, 08/02/2019. Dosing - * 4mg every morning * 2mg every afternoon 6. continue your coumadin regimen as previous (5mg Saturday/Sat/Saturday; 2.5mg //Sat/Sun). have a follow-up blood thinner test (INR) on SATURDAY when you see Ms Ortega. 7. use your oxygen as needed at home. 8. continue your once daily iron as previous. 9. note that your labetalol was DECREASED to 600mg twice a day. (previously you took 800mg twice a day) 10. Check your weight EVERY MORNING on the same scale. write the weights down on paper and show these to Ms Ortega at the CHF clinic. 11. follow-up appointments - see separate section Congestive Heart Failure Instructions - Call 911 and go to the Emergency Room if: * You have tightness or pain in your chest that does not go away with rest or Nitroglycerin * You are very short of breath even with rest Call your doctor if any of the following symptoms or problems start or get worse: * Shortness of breath or difficulty breathing * Wake up at night short of breath * Chest pain * Cough * Swelling of your hands, fee, or legs * More fatigued or tired with your normal activity * Palpitations - sudden fast heart beats WEIGHT * Weigh yourself every morning after using the bathroom. * Use the same scale. * Wear the same amount of clothing. * Write your weight down on your chart. * Call your doctor if you gain more than 3 pounds in 1-2 days. This is usually a sign of fluid/water retention. MEDICATIONS * Use this discharge instruction sheet for instructions. * Take your medications at the time your doctor ordered. * Do not skip a dose of your medicines. * If you miss a dose of medicine, take as soon as possible, but DO NOT DOUBLE A DOSE. * Read your medicine information when you get home. * Know all of the side effects of your medicine. * Call your doctor's office if you have any side effects. * Be sure all of your doctors know what medicine and herbs you take (including cold, flu, and herbal medicine). * Pain Medicine: If you do not get relief from your pain, please call your doctor for help. Take the following with you to your follow-up doctor appointments: * Weight Chart * Medication List * List of questions Do not drink excessive alcohol, beer or wine. Pending Studies at Discharge: No Stand-Alone Forms: My Abigail Stewart, Smoking Cessation Medications and DC Order Prescriptions: New prednisone 10 mg tablet 10 mg PO DIRECTED Qty: 12 RF: 0 ropinirole 1 mg tablet 1 mg PO HS Qty: 30 RF: 2 buspirone 5 mg tablet 5 mg PO BID PRN (Reason: anxiety) Qty: 30 RF: 0 Continued ferrous sulfate 325 mg (65 mg iron) tablet 325 mg PO DAILY RF: 0 acetaminophen 500 mg capsule 500 mg PO Q6H PRN (Reason: Fever Or Pain) RF: 0 cyanocobalamin (vitamin B-12) [Vitamin B-12] 1,000 mcg Tablet 1,000 mcg PO QAM Qty: 0 RF: 0 aspirin [Aspirin Low Dose] 81 mg Tablet,Delayed Release (Dr/Ec) 81 mg PO HS Qty: 0 RF: 0 omeprazole 20 mg Capsule,Delayed Release(Dr/Ec) 20 mg PO QAM Qty: 0 RF: 0 cholecalciferol (vitamin D3) [Vitamin D3] 1,000 unit Tablet 3,000 unit PO QAM Qty: 0 RF: 0 potassium chloride [Klor-Con M20] 20 mEq tablet,ER particles/crystals 20 meq PO BID Qty: 180 RF: 3 metolazone 2.5 mg tablet 2.5 mg PO DAILY PRN (Reason: weight > 330 lb) Qty: 15 RF: 0 escitalopram oxalate 10 mg tablet 10 mg PO DAILY Qty: 30 RF: 5 Breo Ellipta 200-25 mcg/dose blister with device 1 puffs INH DAILY Qty: 60 RF: 3 blood sugar diagnostic [[employer] TechnologiesTouch Ultra Blue Test Strip] strip See Rx Instructions .ROUTE .COMPLEX Qty: 350 RF: 4 diclofenac sodium [Voltaren] 1 % gel 2 gm Topical BID PRN (Reason: SHOULDERS) Qty: 100 RF: 1 simvastatin 20 mg tablet 20 mg PO PM Qty: 90 RF: 1 cyclobenzaprine 5 mg tablet 5 mg PO HS PRN (Reason: muscle spasm) Qty: 30 RF: 0 Novolog Flexpen U-100 Insulin 100 unit/mL (3 mL) insulin pen See Rx Instructions SQ .COMPLEX RF: 0 albuterol sulfate [Ventolin HFA] 90 mcg/actuation HFA aerosol inhaler 2 puff INHALATION Q4H PRN (Reason: Shortness Of Breath) Qty: 18 RF: 2 levalbuterol HCl [Xopenex] 0.63 mg/3 mL solution for nebulization 0.63 mg INH Q6H PRN (Reason: shortness of breath or wheezing) Qty: 36 RF: 3 levothyroxine 200 mcg tablet 200 mcg PO QAM RF: 0 melatonin 10 mg capsule 10 mg PO HS PRN (Reason: Sleep) RF: 0 Basaglar KwikPen U-100 Insulin 100 unit/mL (3 mL) insulin pen 100 unit subcut QPM RF: 0 levothyroxine 75 mcg tablet 75 mcg PO QAM RF: 0 Changed labetalol 200 mg tablet 600 mg PO BID Qty: 720 RF: 3 bumetanide 2 mg tablet 4 mg PO .COMPLEX Qty: 90 RF: 2 warfarin 5 mg tablet See Rx Instructions PO UD 90 Days Qty: 70 RF: 1 Discharge Orders: Discharge Order (Routine); Ordered 08/01/19 Ordered By: Elia Roman Admission Data Admit Date/Time: 07/27/19 03:37 Attending Provider: Elia Roman Admit Provider: Raymond Weldon Primary Care Provider: Jorge Barney V. Other Providers: Swetha,[facility] ; Raymond Weldon Other Interventions: Discharge Summary Assessment (RN) Last Done: 08/01/19 09:57 DC Date/Time DO NOT enter until pt leaves facility: 08/01/19 15:48 Coding Level of Care Code D/C Day Management >30 mins Diagnoses COPD exacerbation J44.1 Acute on chronic diastolic (congestive) heart failure I50.33 Ileus K56.7 Right foot pain M79.671 Cellulitis of both lower extremities L03.115; L03.116 Chronic venous insufficiency I87.2 Obesity hypoventilation syndrome E66.2 Hyperlipidemia E78.2 Hyperlipidemia type: mixed hyperlipidemia Depression F32.89 Depression Type: other depression Hypertension I10 Hypertension type: essential hypertension Restless leg syndrome G25.81 GERD (gastroesophageal reflux disease) K21.9 Esophagitis presence: esophagitis presence not specified Chronic kidney disease, stage III (moderate) N18.3 Bilateral pulmonary embolism I26.99 Hypothyroidism E03.9 Hypothyroidism type: unspecified Morbid obesity with BMI of 50.0-59.9, adult E66.01; Z68.43 Diabetes mellitus type 2, uncontrolled E11.65 Glycemic state: with hyperglycemia Anemia D64.9
== END 2019-08-01 15:48 | disposition home health service (06) | DRG 291 ==
LOC: ED 00:43 → SUATTDRO 03:37 → 2S 03:37 → 2W 07-30 14:47

== ENCOUNTER 2019-12-28 16:31 | Inpatient (IN) ==
--- NOTE | 2019-12-28 19:26 | Emergency Department Note ---
History of Present Illness General Chief complaint: Infection, Wound Stated complaint: INFECTION IN LEGS Time Seen by Provider: 12/28/19 19:22 Source: patient Mode of arrival: ambulatory Limitations: no limitations History of Present Illness Provider complaint: With worsening lower extremity cellulitis Onset (ago): week(s) 1 Location: lower extremity Radiation: proximal Severity: severe Pain Consistency: + constant Maximum Pain Intensity: 10 Current Pain Intensity: 10 Quality: + constant Relieved By: + none Exacerbated By: + movement Associated symptoms: + denies other symptoms Treatments prior to arrival: none This is a 74-year-old female who presents from home due to concern for worsening cellulitis. Patient has had recurrent episodes of lower extremity cellulitis for quite some time and does follow with the wound care clinic. Patient states that she had seen the wound care clinic last week, at the end of the week they decided to change her antibiotics. She states she has been on the new a ntibiotic for 4 days and does not feel it is getting better. Patient states the pain is worsening and she feels the redness is extending further up her leg. Patient denies fevers or chills, nausea vomiting, change in bowel or bladder function. Patient is a diabetic. Patient is anticoagulated. Per EMR, patient has previously had wound cultures which grew out staph, Proteus, and Pseudomonas. Patient's most recent antibiotic was Omnicef. Pt seen during a time of high acuity and national emergency pandemic while wearing PPE. Home Medications Home Medications Medication Instructions Recorded Confirmed Type aspirin [Aspirin Low Dose] 81 mg PO HS #0 07/25/17 12/28/19 History cholecalciferol (vitamin D3) 3,000 unit PO QAM #0 tab 07/25/17 12/28/19 History [Vitamin D3] cyanocobalamin (vitamin B-12) 1,000 mcg PO QAM #0 tab 07/25/17 12/28/19 History [Vitamin B-12] omeprazole 20 mg PO QAM #0 cap 07/25/17 12/28/19 History levothyroxine 200 mcg tablet 200 mcg PO QAM 03/09/19 12/28/19 History melatonin 10 mg capsule 10 mg PO HS PRN 03/09/19 12/28/19 History acetaminophen 500 mg capsule 500 mg PO Q6H PRN 04/06/19 12/28/19 History albuterol sulfate 90 mcg/actuation 2 puff INHALATION Q4H PRN #18 gm 06/15/19 12/28/19 Rx aerosol inhaler ferrous sulfate 325 mg (65 mg 325 mg PO DAILY 06/15/19 12/28/19 History iron) tablet levalbuterol HCl 0.63 mg/3 mL 0.63 mg INH Q6H PRN #36 ml 06/15/19 12/28/19 Rx solution for nebulization simvastatin 20 mg tablet 20 mg PO PM #90 tab 07/23/19 12/28/19 Rx buspirone 5 mg tablet 5 mg PO BID PRN #30 tab 08/01/19 12/28/19 Rx labetalol 600 mg PO BID #720 tab 08/01/19 12/28/19 Rx warfarin See Rx Instructions PO UD 90 Days 08/01/19 12/28/19 Rx #70 tab levothyroxine 75 mcg tablet 75 mcg PO QAM #90 tab 09/08/19 12/28/19 Rx blood-glucose meter #1 ea 09/29/19 12/28/19 Rx allopurinol 100 mg tablet 100 mg PO DAILY #30 tab 10/08/19 12/28/19 Rx bumetanide 2 mg tablet 4 mg PO .COMPLEX #90 tab 10/12/19 12/28/19 Rx diclofenac sodium 1 % topical gel 2 gm TOP QID #100 gm 10/19/19 12/28/19 Rx escitalopram oxalate 10 mg tablet 10 mg PO DAILY #90 tab 10/19/19 12/28/19 Rx ropinirole 1 mg tablet 1 mg PO HS #90 tab 10/19/19 12/28/19 Rx blood sugar diagnostic See Rx Instructions .ROUTE 11/03/19 12/28/19 Rx .COMPLEX #300 strip cyclobenzaprine 5 mg tablet 5 mg PO HS PRN #30 tab 11/16/19 12/28/19 Rx metolazone 2.5 mg tablet 2.5 mg PO DAILY PRN #15 tab 11/19/19 12/28/19 Rx insulin aspart U-100 100 unit/mL See Rx Instructions SQ .COMPLEX 11/24/19 12/28/19 Rx (3 mL) subcutaneous pen #30 ml fluticasone furoate 200 1 puffs INH DAILY #60 ea 12/03/19 12/28/19 Rx mcg-vilanterol 25 mcg/dose inhalation powder potassium chloride 20 mEq 20 meq PO BID #180 tab 12/14/19 12/28/19 Rx tablet,extended release(part/cryst) hydroxyzine HCl 25 mg tablet 25 mg PO BID PRN #30 tab 12/17/19 12/28/19 Rx insulin glargine 100 unit/mL (3 100 unit SUBCUT QPM 90 Days #90 ml 12/17/19 12/28/19 Rx mL) subcutaneous pen acetic acid 0.25 % irrigation 100 ml IR DAILY 14 Days #1000 ml 12/24/19 12/28/19 Rx solution cefdinir 300 mg capsule 300 mg PO BID 14 Days #28 cap 12/24/19 12/28/19 Rx Allergies Allergy/AdvReac Type Severity Reaction Status Date / Time ibuprofen Allergy Intermediate HIVES Verified 12/28/19 19:56 lisinopril AdvReac Mild COUGH Verified 12/28/19 19:56 pramipexole AdvReac Unknown Verified 12/28/19 19:56 zolpidem AdvReac drowsinesss Verified 12/28/19 19:56 Past Med/Surg History Medical History Anemia Arthritis (Acute) CHF (congestive heart failure) (Chronic) Chronic GERD (Chronic) Chronic kidney disease, stage III (moderate) COPD (chronic obstructive pulmonary disease) (Chronic) Depression (Chronic) Diabetes (Resolved) Diabetic neuropathy (Chronic) Hemorrhoids (Chronic) HTN (hypertension) (Chronic) Hyperlipidemia (Chronic) Hypothyroidism Left bundle branch block (Chronic) Lymphedema (Chronic) Mild mitral stenosis (Chronic) Mitral regurgitation (Chronic) Morbid obesity (Chronic) SHELIA on CPAP Osteopenia (Chronic) Restless leg syndrome (Chronic) Sleep apnea (Inactive) Stage III chronic kidney disease (Chronic) Urinary incontinence (Chronic) Venous insufficiency (Chronic) Vitamin D deficiency Vulvar cyst (Chronic) Vulvovaginitis (Chronic) Surgical History H/O hysterectomy with oophorectomy History of cataract surgery History of cholecystectomy History of hysterectomy Family History Mother Diabetes Colon cancer Lung cancer Father Esophageal cancer Other Hypertension Denies family history of Ovarian cancer Prostate cancer Myocardial infarction Breast cancer Social History Smoking Status: Never smoker Second Hand Exposure: No; Hx Alcohol Use: No Hx Substance Use: No Preferred Language: Portuguese Communication Ability: Effective Visual Impairment: No Limitations Hearing Ability: Normal 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 and A total of 10 systems reviewed and were otherwise negative Physical Exam Vital Signs Vital Signs - 24 hr 12/28/19 17:02 12/28/19 19:45 12/28/19 20:00 Temperature 36.8 C Temperature Source Oral Pulse Rate 76 84 84 Pulse Rate from SpO2 Sensor 85 85 Pulse Rhythm Regular Pulse Strength Normal Respiratory Rate 20 18 24 Respiratory Effort / Characteristics Non-Labored Spontaneous Respiratory Depth Normal Respiratory Pattern Regular Blood Pressure 124/56 L 168/72 H 168/59 H Blood Pressure Mean 78 103 85 Blood Pressure Position Sitting Pulse Oximetry 93 94 94 Oxygen Delivery Method Room Air Room Air Room Air Sepsis Recent Fever Within 48 Hours No Sepsis New/Unexplained Change in Mental Status No Sepsis Action Taken by Nursing No Action Required 12/28/19 20:37 12/28/19 21:00 12/28/19 21:30 Temperature Temperature Source Pulse Rate 87 88 97 H Pulse Rate from SpO2 Sensor 88 89 Pulse Rhythm Pulse Strength Respiratory Rate 21 23 21 Respiratory Effort / Characteristics Respiratory Depth Respiratory Pattern Blood Pressure 168/62 H 159/78 H 142/69 H Blood Pressure Mean 97 94 78 Blood Pressure Position Pulse Oximetry 94 95 95 Oxygen Delivery Method Room Air Room Air Room Air Sepsis Recent Fever Within 48 Hours Sepsis New/Unexplained Change in Mental Status Sepsis Action Taken by Nursing 12/28/19 22:01 12/28/19 22:30 Temperature Temperature Source Pulse Rate 127 H 85 Pulse Rate from SpO2 Sensor 90 85 Pulse Rhythm Pulse Strength Respiratory Rate 32 H 20 Respiratory Effort / Characteristics Respiratory Depth Respiratory Pattern Blood Pressure 140/60 142/64 H Blood Pressure Mean 79 90 Blood Pressure Position Pulse Oximetry 94 94 Oxygen Delivery Method Room Air Room Air Sepsis Recent Fever Within 48 Hours Sepsis New/Unexplained Change in Mental Status Sepsis Action Taken by Nursing GENERAL: alert, well appearing, well nourished, no distress, non-toxic, obese EYE EXAM: normal conjunctiva, PERRL and EOM's grossly intact OROPHARYNX: no exudate, no erythema, lips, buccal mucosa, and tongue normal and mucous membranes are moist NECK: supple, no nuchal rigidity, no adenopathy, non-tender LUNGS: Clear to auscultation. Normal chest wall mechanics, no w/r/r HEART: no murmurs, S1 normal and S2 normal ABDOMEN: abdomen soft, non-tender, normo-active bowel sounds, no masses, no rebound or guarding. BACK: Back is symmetrical on inspection and there is no deformity, no midline tenderness, no CVA tenderness. SKIN: no rashes and no bruising UPPER EXTREMITIES: upper extremities are grossly normal. FROM, nml pulses b/l. LOWER EXTREMITIES: Patient with pitting edema bilaterally, distal lower extremities wrapped bilaterally, when these were removed there was obvious increased erythema with recent bullae some of which have spontaneously ruptured leaking a clear to yellow discharge is apparent from soaking the gauze pad, increased warmth is noted, bilateral lower extremities are extraordinarily painful with palpation for the patient, equal distal pulses bilaterally, decreased sensation bilateral lower extremity secondary to chronic neuropathy, erythema seen extending up over the knees into the more proximal area of the extremities bilaterally, compartments otherwise soft, no crepitus NEURO EXAM: Normal sensorium, cranial nerves II-XII grossly intact, normal speech, no gross weakness of arms, no gross weakness of legs. Gross sensation intact. Course Course 2044: Case discussed with Dr. Morris for admission. Administered Medications Discontinued Medications Acetaminophen (Ofirmev) 1,000 mg in 100 mls @ 400 mls/hr IV NOW STA Stop: 12/28/19 20:32 Last Infusion: 12/28/19 21:11 Dose: 0 mls/hr Documented by: [id number] Admin: 12/28/19 20:39 Dose: 400 mls/hr Documented by: [id number] Piperacillin Sod/Tazobactam Sod (Zosyn) 4.5 gm in 120 mls @ 240 mls/hr IV NOW ONE Stop: 12/28/19 21:19 Last Infusion: 12/28/19 21:56 Dose: 0 mls/hr Documented by: [id number] Admin: 12/28/19 21:13 Dose: 240 mls/hr Documented by: [id number] Morphine Sulfate (Morphine Sulfate) Confirm Administered Dose 2 mg .ROUTE .STK- MED ONE Stop: 12/28/19 21:27 Last Admin: 12/28/19 21:27 Dose: 2 mg Documented by: [id number] Medical Decision Making Differential Diagnosis Differential diagnosis includes etiologies such as cellulitis, abscess, MRSA infection, DVT, necrotizing fasciitis, dermatitis, drug eruption, as well as others were entertained. Medical Records Attestation: I reviewed the patient's medical records. Home Medications Current Medication List: was personally reviewed by me Laboratory Data Attestation: I reviewed the patient's lab results. Result diagrams: 12/28/19 19:34 12/28/19 19:34 Lab Results 12/28/19 12/28/19 Range/Units 19:34 19:34 WBC 11.38 H (4.8-10.8) K/uL RBC 3.95 L (4.2-5.4) M/uL Hgb 10.1 L (12.0-16.0) g/dL Hct 32.7 L (37-47) % MCV 82.8 (80-100) fL MCH 25.6 (25-34) pg MCHC 30.9 L (32-36) g/dL RDW Std Deviation 51.4 H (36.4-46.3) fL RDW Coeff of Joycelyn 16.8 H (11.5-14.5) % Plt Count 435 H (130-400) K/uL MPV 9.8 (7.4-10.4) fL Immature Gran % (Auto) 0.3 % Neut % (Auto) 72.6 % Lymph % (Auto) 14.7 % Ransom % (Auto) 8.4 % Eos % (Auto) 3.8 % Baso % (Auto) 0.2 % Neut # (Auto) 8.27 H (1.4-6.5) K/uL Lymph # (Auto) 1.67 (1.2-3.4) K/uL Ransom # (Auto) 0.96 H (0.11-0.59) K/uL Eos # (Auto) 0.43 (0-0.5) K/uL Baso # (Auto) 0.02 (0-0.2) K/uL Immature Gran # (Auto) 0.03 H (0.00-0.02) K/uL Sodium 143 (136-145) mmol/L Potassium 4.4 (3.5-5.1) mmol/L Chloride 111 H (98-107) mmol/L Carbon Dioxide 26 (21-32) mmol/L Anion Gap 6.0 (3-11) BUN 58 H (7-18) mg/dl Creatinine 1.80 H (0.6-1.2) mg/dl Est Cr Clr Drug Dosing 40.0 ml/min Est GFR ( Amer) 31.8 Est GFR (Non-Af Amer) 27.4 BUN/Creatinine Ratio 32.5 H (10-20) Glucose 122 H (70-99) mg/dl Calcium 9.2 (8.5-10.1) mg/dl Magnesium 1.8 (1.8-2.4) mg/dl Total Bilirubin 0.4 (0.2-1) mg/dl AST 26 (15-37) U/L ALT 39 (12-78) U/L Alkaline Phosphatase 115 (45-117) U/L Total Protein 7.2 (6.4-8.2) gm/dl Albumin 2.6 L (3.4-5.0) gm/dl Globulin 4.6 H (2.5-4.0) gm/dl Albumin/Globulin Ratio 0.6 L (0.9-2) ECG Data Attestation: I personally reviewed and interpreted this ECG as follows: Indication: + other Rate (beats per minute): 82 ECG Intervals/blocks: + Left anterior fascicular block and + Prolonged QT ECG [place]: + Left axis deviation ECG ST segments: + Nonspecific ST abnormalities Comparison ECG Date: from (07/27/2019) Change: no significant change Blood Pressure Blood Pressure Findings: Elevated blood pressure Blood Pressure Disposition: further management by hospitalist SHERIF Garcia Patient presenting here due to concern for worsening cellulitis and wound infection despite recent change in antibiotics. Patient is been followed by the wound clinic and has a history of chronic lymphedema and wounds to the distal bilateral lower extremities. Patient is a diabetic. I did review the EMR of the patient's wound evaluation last week as well as her recent wound cultures. Patient has been on Omnicef for 4 days, and does not feel she is improving. Patient's lower extremities are concerning for worsening infection. Labs drawn and sent including blood cultures as a precaution. Patient started on IV Zosyn after review of cultures. Discussed with the patient need for additional inpatient management and she verbalized understanding was in agreement. Case discussed with Dr. Morris. An order was placed for continuous cardiac monitoring. The monitor shows a rate of _90 with normal sinus rhythm. Impression & Plan Cellulitis, Lymphedema, Morbid obesity, Chronic anticoagulation, Diabetic nephropathy, Failure of outpatient treatment Discharge Plan Visit Data Chief Complaint: Infection, Wound Stated Complaint: INFECTION IN LEGS ED Provider: Ariane Martin Discharge Problem: Cellulitis, Lymphedema, Morbid obesity, Chronic anticoagulation, Diabetic nephropathy, Failure of outpatient treatment Forms Stand Alone Forms: [employer] Prescriptions Prescriptions: No Action ferrous sulfate 325 mg (65 mg iron) tablet 325 mg PO DAILY RF: 0 acetaminophen 500 mg capsule 500 mg PO Q6H PRN (Reason: Fever Or Pain) RF: 0 cyanocobalamin (vitamin B-12) [Vitamin B-12] 1,000 mcg Tablet 1,000 mcg PO QAM Qty: 0 RF: 0 aspirin [Aspirin Low Dose] 81 mg Tablet,Delayed Release (Dr/Ec) 81 mg PO HS Qty: 0 RF: 0 omeprazole 20 mg Capsule,Delayed Release(Dr/Ec) 20 mg PO QAM Qty: 0 RF: 0 cholecalciferol (vitamin D3) [Vitamin D3] 1,000 unit Tablet 3,000 unit PO QAM Qty: 0 RF: 0 simvastatin 20 mg tablet 20 mg PO PM Qty: 90 RF: 1 levothyroxine 75 mcg tablet 75 mcg PO QAM Qty: 90 RF: 3 (DME) blood-glucose meter Kit See Rx Instructions .ROUTE .MEDSUPPLY Qty: 1 RF: 0 allopurinol 100 mg tablet 100 mg PO DAILY Qty: 30 RF: 5 bumetanide 2 mg tablet 4 mg PO .COMPLEX Qty: 90 RF: 2 blood sugar diagnostic [OneTouch Ultra Blue Test Strip] Strip See Rx Instructions .ROUTE .COMPLEX Qty: 300 RF: 4 cyclobenzaprine 5 mg tablet 5 mg PO HS PRN (Reason: muscle spasm) Qty: 30 RF: 0 metolazone 2.5 mg tablet 2.5 mg PO DAILY PRN (Reason: weight > 325 lb) Qty: 15 RF: 0 Novolog Flexpen U-100 Insulin 100 unit/mL (3 mL) insulin pen See Rx Instructions SQ .COMPLEX Qty: 30 RF: 5 potassium chloride [Klor-Con M20] 20 mEq tablet,ER particles/crystals 20 meq PO BID Qty: 180 RF: 3 Basaglar KwikPen U-100 Insulin 100 unit/mL (3 mL) insulin pen 100 unit subcut QPM 90 Days Qty: 90 RF: 3 hydroxyzine HCl 25 mg tablet 25 mg PO BID PRN (Reason: itching) Qty: 30 RF: 1 cefdinir 300 mg capsule 300 mg PO BID 14 Days Qty: 28 RF: 0 acetic acid 0.25 % solution 100 ml IR DAILY 14 Days Qty: 1000 RF: 1 ropinirole 1 mg tablet 1 mg PO HS Qty: 90 RF: 3 escitalopram oxalate 10 mg tablet 10 mg PO DAILY Qty: 90 RF: 3 diclofenac sodium [Voltaren] 1 % gel 2 gm TOP QID Qty: 100 RF: 3 albuterol sulfate [Ventolin HFA] 90 mcg/actuation HFA aerosol inhaler 2 puff INHALATION Q4H PRN (Reason: Shortness Of Breath) Qty: 18 RF: 2 levalbuterol HCl [Xopenex] 0.63 mg/3 mL solution for nebulization 0.63 mg INH Q6H PRN (Reason: shortness of breath or wheezing) Qty: 36 RF: 3 Breo Ellipta 200-25 mcg/dose blister with device 1 puffs INH DAILY Qty: 60 RF: 3 levothyroxine 200 mcg tablet 200 mcg PO QAM RF: 0 melatonin 10 mg capsule 10 mg PO HS PRN (Reason: Sleep) RF: 0 labetalol 200 mg tablet 600 mg PO BID Qty: 720 RF: 3 warfarin 5 mg tablet See Rx Instructions PO UD 90 Days Qty: 70 RF: 1 buspirone 5 mg tablet 5 mg PO BID PRN (Reason: anxiety) Qty: 30 RF: 0 Hold Instructions: not helping
[2019-12-28 19:45] LABS: Basophils # (auto) 0.02 K/uL (0-0.2); Basophils % (auto) 0.2 %; Eosinophils # (auto) 0.43 K/uL (0-0.5); Eosinophils % (auto) 3.8 %; Hematocrit (blood only) 32.7 % (37-47); Hemoglobin 10.1 g/dL (12.0-16.0); Immature Granulocytes # (auto) 0.03 K/uL (0.00-0.02); Immature Granulocytes % (auto) 0.3 %; Lymphocytes # (auto) 1.67 K/uL (1.2-3.4); Lymphocytes % (auto) 14.7 %; Mean Corpuscular Hemoglobin 25.6 pg (25-34); Mean Corpuscular Hgb Conc 30.9 g/dL (32-36); Mean Corpuscular Volume 82.8 fL (80-100); Mean Platelet Volume 9.8 fL (7.4-10.4); Monocytes # (auto) 0.96 K/uL (0.11-0.59); Monocytes % (auto) 8.4 %; Neutrophils # (auto) 8.27 K/uL (1.4-6.5); Neutrophils % (auto) 72.6 %; Platelet Count 435 K/uL (130-400); RDW Coefficient of Variation 16.8 % (11.5-14.5); RDW Standard Deviation 51.4 fL (36.4-46.3); Red Blood Count 3.95 M/uL (4.2-5.4); White Blood Count 11.38 K/uL (4.8-10.8)
[2019-12-28 20:03] LABS: Albumin Level 2.6 gm/dl (3.4-5.0); BUN Creatinine Ratio 32.5 (10-20); Calcium 9.2 mg/dl (8.5-10.1); Est GFR (African American) 31.8; Est GFR (Non-African American) 27.4; Magnesium 1.8 mg/dl (1.8-2.4); Potassium 4.4 mmol/L (3.5-5.1)
[2019-12-28 20:05] LABS: Albumin Globulin Ratio 0.6 (0.9-2); Bilirubin,Total 0.4 mg/dl (0.2-1); Globulin 4.6 gm/dl (2.5-4.0); Total Protein 7.2 gm/dl (6.4-8.2)
[2019-12-28] MEDS ORDERED: ACETAMINOPHEN 1,000 MG/100 ML VIAL IV STA (20:18)
[2019-12-28] MEDS ORDERED: PIPERACILLIN/TAZOBACTAM 4.5 GM/120 ML BAG IV ONE (20:50)
[2019-12-28] MEDS ORDERED: PIPERACILL/TAZOBAC CONSULT ACTIVE PRN (20:50)
[2019-12-28] MEDS ORDERED: PHARMACY GLYCEMIC MGMT CONSULT STA (21:22)
[2019-12-28] MEDS ORDERED: MoRPHine SULFATE 2 MG/ML CARP ONE (21:26)
--- NOTE | 2019-12-28 21:32 | History & Physical Report ---
Date of Service December 28, 2019 Assessment & Plan (1) Cellulitis: 74 yo F PMHx DM2 on insulin therapy with CKD baseline Cr 1.7, asthma, HFpEF, SHELIA on CPAP, Hx DVT/PE with + Lupus AC on warfarin therapy, hypothyroidism, peripheral vascular disease admitted for bilateral LE cellulitis 2/2 nonhealing ulcerations bilaterally that have failed outpatient therapy. Cellulitis without sepsis 2/2 bilateral LE nonhealing ulcerations: - Patient has been following with wound care for several weeks for care of ulcerations on bilateral LE. - They continued to worsen despite frequent wound care visits and patient was started on cefdinir 4 days ago. - Despite this, patient with continued worsening of her LE wounds and bilateral leg pain. - Per Wound Care Note 12/27: "Wound #4 the right lower leg measures 20 x 34 x 0.1 cm in size. This is larger than last visit. Wound base is erythematous. No odor present. Copious amount of green drainage is present. Periwound is erythematous and macerated. Wound #5 the left lower leg is measuring 31 x 46 x 0.1 cm in size. No change in size since last visit. Wound base is erythematous. No odor present. Copious amount of serosanguineous drainage is noted. Periwound is erythematous and macerated." - Patient with leukocytosis to 11.38 with L shift, and upon review of her wound care visits from the last several weeks the wounds appear to be more macerated, with increase in erythema to bilateral LE, and with increased drainage that is foul in odor. - BCx x2 drawn in ED, wound Cx drawn in wound care clinic today. Will start Zosyn q8h here and await blood culture sensitivities. Her cultures in the past have grown non-MRSA Staph, Pseudomonas and Proteus (with resistance to fluoroquinolones). - Repeat CBC AM. - Wound care nursing consult placed. DM2 on U-100 insulin with CKD and peripheral neuropathy: - Today Cr 1.8, baseline ~1.7 (range 1.4-2.0 over the last 6 months). - No dozing changes to Zosyn required as patient's CrCl >30. - Pharmacy consult placed given Hx resistant hyperglycemia. - Currently ordered SSI, Basal 50u BID (home dosing 100units daily basal). HFpEF on chronic diuretic therapy: - At home is on Bumex 4mg PO BID. Continue while inpatient. - Hold PRN metolazone and continue to monitor patient's fluid status. - Trend BMP while admitted. HTN: - Continue home labetalol 600mg BID, Bumex 4mg BID. - May benefit from increased control in outpatient setting given systolic 150- 160s. - Patient with symptoms at this time, will hold off on further HTN therapies for now. SHELIA: - Patient unaware of home settings. - Start CPAP qHS at setting of 5 and titrate as needed. Hx Depression/Anxiety: - Continue home escitalopram daily, buspirone BID PRN. Hypothyroidism: - continue home levothyroxine 200mcg daily. OA bilateral knees: - Continue diclofenac gel BID to affected areas. GERD: - Patient on omeprazole 20mg daily at home. - While admitted will start pantoprazole 40mg daily. Asthma: - Continue home nebs, albuterol PRN SOB/wheezing. - Continue daily Breo Ellipta. Hypokalemia: - History of, likely in the setting of chronic diuretic therapy. - K 4.4 on admission; continue home KCl 20meq BID. Hyperlipidemia: - Continue home simvastatin 20mg daily. Code Status: FULL CODE FEN/GI: Heart Healthy, DM2 DVT ppx: Continue home warfarin dosing Dispo: Med/Surg with Telemetry (2) History of deep venous thrombosis or pulmonary embolus: (3) Obstructive sleep apnea syndrome: (4) Asthma: (5) Pseudomonas aeruginosa infection: (6) Venous stasis ulcer: (7) Peripheral edema: (8) 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, with long- term current use of insulin: (9) CHF (congestive heart failure): (10) Chronic venous insufficiency: (11) Hypokalemia: (12) Chronic GERD: (13) Arthritis: (14) Hyperlipidemia: History of Present Illness Chief Complaint: bilateral leg pain Primary Care Provider: Jorge Barney MD 74 yo F PMHx DM2 on insulin therapy with CKD baseline Cr 1.7, asthma, HFpEF, SHELIA on CPAP, Hx DVT/PE with + Lupus AC on warfarin therapy, hypothyroidism, peripheral vascular disease presented to ED for bilateral LE cellulitis 2/2 nonhealing ulcerations bilaterally that have failed outpatient therapy; was sent by wound care to ED for possible IV antibiotics after wound culture was collected. Patient reports that she has had worsening of her LE wounds for the last 3 weeks, and due to worsening was 4 days ago started on cefdinir 300mg BID. Despite this her wounds have continued to worsen and she has had increased pain causing her to be unable to perform most ADLs. Has a history of wound infections of her bilateral LE that have grown Staph, Proteus, and Pseudomonas with resistance to fluoroquinolones. In ED had leukocytosis to 11.38 with L shift, BCx x2 were drawn and Zosyn started. Found to have Cr 1.8 (baseline ~1.7). Hospitalist service consulted for admission. On interview is in pain despite IV Tylenol. Has no SOB, CP, fevers or chills, nausea or vomiting, constipation or diarrhea. States her sugars go "up and down depending on what I eat. She states she tries to maintain a diabetic diet but that "she slips sometimes". Unable to qualify how high her sugars will go; in ED BSG 122. At home is on U100, 100 units basal insulin, with 20u Novolog at mealtimes and SSI on top. Allergies Allergy/AdvReac Type Severity Reaction Status Date / Time ibuprofen Allergy Intermediate HIVES Verified 12/28/19 19:56 lisinopril AdvReac Mild COUGH Verified 12/28/19 19:56 pramipexole AdvReac Unknown Verified 12/28/19 19:56 zolpidem AdvReac drowsinesss Verified 12/28/19 19:56 Home Medications Home Medications Medication Instructions Recorded Confirmed Type aspirin [Aspirin Low Dose] 81 mg PO HS #0 07/25/17 12/28/19 History cholecalciferol (vitamin D3) 3,000 unit PO QAM #0 tab 07/25/17 12/28/19 History [Vitamin D3] cyanocobalamin (vitamin B-12) 1,000 mcg PO QAM #0 tab 07/25/17 12/28/19 History [Vitamin B-12] omeprazole 20 mg PO QAM #0 cap 07/25/17 12/28/19 History levothyroxine 200 mcg tablet 200 mcg PO QAM 03/09/19 12/28/19 History melatonin 10 mg capsule 10 mg PO HS PRN 03/09/19 12/28/19 History acetaminophen 500 mg capsule 500 mg PO Q6H PRN 04/06/19 12/28/19 History albuterol sulfate 90 mcg/actuation 2 puff INHALATION Q4H PRN #18 gm 06/15/19 12/28/19 Rx aerosol inhaler ferrous sulfate 325 mg (65 mg 325 mg PO DAILY 06/15/19 12/28/19 History iron) tablet levalbuterol HCl 0.63 mg/3 mL 0.63 mg INH Q6H PRN #36 ml 06/15/19 12/28/19 Rx solution for nebulization simvastatin 20 mg tablet 20 mg PO PM #90 tab 07/23/19 12/28/19 Rx buspirone 5 mg tablet 5 mg PO BID PRN #30 tab 08/01/19 12/28/19 Rx labetalol 600 mg PO BID #720 tab 08/01/19 12/28/19 Rx warfarin See Rx Instructions PO UD 90 Days 08/01/19 12/28/19 Rx #70 tab levothyroxine 75 mcg tablet 75 mcg PO QAM #90 tab 09/08/19 12/28/19 Rx blood-glucose meter #1 ea 09/29/19 12/28/19 Rx allopurinol 100 mg tablet 100 mg PO DAILY #30 tab 10/08/19 12/28/19 Rx bumetanide 2 mg tablet 4 mg PO .COMPLEX #90 tab 10/12/19 12/28/19 Rx diclofenac sodium 1 % topical gel 2 gm TOP QID #100 gm 10/19/19 12/28/19 Rx escitalopram oxalate 10 mg tablet 10 mg PO DAILY #90 tab 10/19/19 12/28/19 Rx ropinirole 1 mg tablet 1 mg PO HS #90 tab 10/19/19 12/28/19 Rx blood sugar diagnostic See Rx Instructions .ROUTE 11/03/19 12/28/19 Rx .COMPLEX #300 strip cyclobenzaprine 5 mg tablet 5 mg PO HS PRN #30 tab 11/16/19 12/28/19 Rx metolazone 2.5 mg tablet 2.5 mg PO DAILY PRN #15 tab 11/19/19 12/28/19 Rx insulin aspart U-100 100 unit/mL See Rx Instructions SQ .COMPLEX 11/24/19 12/28/19 Rx (3 mL) subcutaneous pen #30 ml fluticasone furoate 200 1 puffs INH DAILY #60 ea 12/03/19 12/28/19 Rx mcg-vilanterol 25 mcg/dose inhalation powder potassium chloride 20 mEq 20 meq PO BID #180 tab 12/14/19 12/28/19 Rx tablet,extended release(part/cryst) hydroxyzine HCl 25 mg tablet 25 mg PO BID PRN #30 tab 12/17/19 12/28/19 Rx insulin glargine 100 unit/mL (3 100 unit SUBCUT QPM 90 Days #90 ml 12/17/19 12/28/19 Rx mL) subcutaneous pen acetic acid 0.25 % irrigation 100 ml IR DAILY 14 Days #1000 ml 12/24/19 12/28/19 Rx solution cefdinir 300 mg capsule 300 mg PO BID 14 Days #28 cap 12/24/19 12/28/19 Rx Past Med/Surg History Medical History Anemia Arthritis (Acute) CHF (congestive heart failure) (Chronic) Chronic GERD (Chronic) Chronic kidney disease, stage III (moderate) COPD (chronic obstructive pulmonary disease) (Chronic) Depression (Chronic) Diabetes (Resolved) Diabetic neuropathy (Chronic) Hemorrhoids (Chronic) HTN (hypertension) (Chronic) Hyperlipidemia (Chronic) Hypothyroidism Left bundle branch block (Chronic) Lymphedema (Chronic) Mild mitral stenosis (Chronic) Mitral regurgitation (Chronic) Morbid obesity (Chronic) SHELIA on CPAP Osteopenia (Chronic) Restless leg syndrome (Chronic) Sleep apnea (Inactive) Stage III chronic kidney disease (Chronic) Urinary incontinence (Chronic) Venous insufficiency (Chronic) Vitamin D deficiency Vulvar cyst (Chronic) Vulvovaginitis (Chronic) Surgical History H/O hysterectomy with oophorectomy History of cataract surgery History of cholecystectomy History of hysterectomy Family History Mother Diabetes Colon cancer Lung cancer Father Esophageal cancer Other Hypertension Denies family history of Ovarian cancer Prostate cancer Myocardial infarction Breast cancer Social History Smoking Status: Never smoker Second Hand Exposure: No; Hx Alcohol Use: No Hx Substance Use: No Preferred Language: Jamaican Communication Ability: Effective Visual Impairment: No Limitations Hearing Ability: Normal Shear Operator Required: No Beliefs That Will Affect Care: None marital status: Current Living Situation: Alone Current Living Situation Comment: Duplex Other Information That Helps Us Care for You: No Feels Safe at Home: Yes Safety Concerns: Feels Safe At This Time Seatbelt Use: always Review of Systems Review of Systems: All systems reviewed & are unremarkable except as noted in HPI & below Constitutional: no fever, no chills and no malaise Respiratory: no cough and no dyspnea Cardiovascular: no chest pain, no palpitations and no edema Gastrointestinal: no abdominal pain, no constipation and no diarrhea/loose stools Genitourinary: no dysuria and no hematuria Physical Exam Constitutional: well developed and + obese; no acute distress Eyes: PERRL, conjunctivae normal, anicteric sclerae ENMT: external ear and nose normal, oropharynx normal Neck: normal visual inspection Respiratory: Auscultation: + diminished lung sounds (throughout lung barnes); no crackles, no rhonchi and no wheezes Cardiovascular: Rate/Rhythm: regular rate and regular rhythm Heart Sounds: + murmur (2/6 systolic murmur) Extremities: + edema (2+ bilateral LE pitting edema) Gastrointestinal (Abdomen): normal bowel sounds, soft, nontender, no hepatosplenomegaly Skin: Bilateral LE with multiple ulcerations that are macerated with yellow drainage, foul odor. With bandages on top that upon trying to remove patient cries out in pain and exam deferred. Please see Assessment and Plan and recent W ound Care note for documentation of leg wounds. Bilateral LE with erythema and warmth to level of the knee. No TTP of bilateral knee joints Neurologic: moves all extremities; no focal motor deficits Speech / Cognition: normal speech Motor/Sensory: no tremor Psychiatric: A+Ox3, euthymic affect Results & Data Results & Data ([facility]) Vital Signs (Past 12 Hours) Vital Signs Temp Pulse Resp BP Pulse Ox 12/28/19 21:00 88 23 159/78 H 95 12/28/19 20:37 87 21 168/62 H 94 12/28/19 20:00 84 24 168/59 H 94 12/28/19 19:45 84 18 168/72 H 94 12/28/19 17:02 36.8 C 76 20 124/56 L 93 Code Status & VTE Plan VTE Prophylaxis Plan VTE Prophylaxis will be ordered: Yes Supervising Physician Co-Signing Physician Notes Patient seen and examined, chart reviewed, case discussed with Dr. Lafleur and I agree with her assessment and plan as documented above. Briefly, patient is a 74yo C female with history of DM on high dose insulin, chronic BL LE wounds following with Wound Clinic presenting with worsening of her wounds, failed outpatient therapy On exam she is afebrile, HD stable, NAD Skin - multiple areas of blistering, maceration with serosanguinous drainage, no purulence, unable to detect malodor with mask/faceshield in place HEENT - NC/AT, PERRL, EOMI, MMM Heart - +S1/S2 Lungs - CTA Abd - +BS Labs and images reviewed. Last wound cultures from 12/20 +Proteus and Pseudomonas Sn to Zosyn Assessment/Plan - 74yo C female with chronic bilateral LE wounds, cellulitis presenting with failed outpatient treatment. She is afebrile, HD stable, non- toxic in appearance. Wounds appear worse when compared to prior photographs from Wound Clinic. -Observation to medical floor -Zosyn -Wound Consult appreciated -Remainder of plan as above Resident Activity Tracking Resident Involvement: Resident Care Provided Care Provided: Adult Hospital Medicine (1) CHF (congestive heart failure) Heart failure chronicity: chronic Heart failure type: diastolic Qualified Code(s): I50.32 - Chronic diastolic (congestive) heart failure (2) Venous stasis ulcer Laterality: left Non-pressure ulcer stage: limited to breakdown of skin Varicose vein presence: unspecified whether present Venous stasis ulcer site: calf Qualified Code(s): I83.022 - Varicose veins of left lower extremity with ulcer of calf; L97.221 - Non-pressure chronic ulcer of left calf limited to breakdown of skin
[2019-12-28] MEDS ORDERED: GLUCOSE 10 TABS/TUBE PO PRN (23:40)
[2019-12-28] MEDS ORDERED: ALBUTEROL HFA 8 GM INHALER INH PRN (23:40)
[2019-12-28] MEDS ORDERED: CARBOHYDRATES FOR HYPOGLYCEMIA PO PRN (23:40)
[2019-12-28] MEDS ORDERED: LEVALBUTEROL HCL 0.63 MG/3 ML NEB INH PRN (23:40)
[2019-12-28] MEDS ORDERED: POLYETHYLENE (MIRALAX) 17 GM PACK PO PRN (23:40)
[2019-12-28] MEDS ORDERED: GLUCOSE 40% GEL 15 GM TUBE PO PRN (23:40)
[2019-12-28] MEDS ORDERED: CYCLOBENZAPRINE HCL 5 MG TAB PO PRN (23:40)
[2019-12-28] MEDS ORDERED: DEXTROSE 50% 50 ML SYRINGE IV PRN (23:40)
[2019-12-28] MEDS ORDERED: GLUCAGON FOR INJ 1 MG VIAL SQ PRN (23:40)
[2019-12-29] MEDS: MoRPHine SULFATE 4 MG/ML 1 ML CARP\\VIAL IV PRN ×3 (00:08→11:43)
--- NOTE | 2019-12-29 02:16 | Billing Data ---
Date of Service December 28, 2019 Coding Level of Care Code 30123 OBS Care - Level 3
[2019-12-29] MEDS ORDERED: MICONAZOLE NITRATE POWDER 43 GM EXT PRN (03:21)
[2019-12-29] MEDS: LEVOTHYROXINE SODIUM 75 MCG TABLET PO SCH (06:06)
[2019-12-29] MEDS: LEVOTHYROXINE SODIUM 200 MCG TABLET PO SCH (06:06)
[2019-12-29 07:54] LABS: Basophils # (auto) 0.02 K/uL (0-0.2); Basophils % (auto) 0.2 %; Eosinophils # (auto) 0.48 K/uL (0-0.5); Eosinophils % (auto) 4.7 %; Hematocrit (blood only) 30.9 % (37-47); Immature Granulocytes # (auto) 0.04 K/uL (0.00-0.02); Immature Granulocytes % (auto) 0.4 %; Lymphocytes # (auto) 1.59 K/uL (1.2-3.4); Lymphocytes % (auto) 15.5 %; Mean Corpuscular Hemoglobin 26.6 pg (25-34); Mean Corpuscular Hgb Conc 32.4 g/dL (32-36); Mean Corpuscular Volume 82.2 fL (80-100); Mean Platelet Volume 9.6 fL (7.4-10.4); Monocytes # (auto) 0.75 K/uL (0.11-0.59); Monocytes % (auto) 7.3 %; Neutrophils # (auto) 7.38 K/uL (1.4-6.5); Neutrophils % (auto) 71.9 %; Platelet Count 378 K/uL (130-400); RDW Coefficient of Variation 16.8 % (11.5-14.5); RDW Standard Deviation 50.7 fL (36.4-46.3); Red Blood Count 3.76 M/uL (4.2-5.4); White Blood Count 10.26 K/uL (4.8-10.8)
[2019-12-29 08:05] LABS: INR 3.2 (0.9-1.1); Prothrombin Time 31.6 Seconds (9.0-12.0)
[2019-12-29 08:26] LABS: BUN Creatinine Ratio 29.1 (10-20); Calcium 9.2 mg/dl (8.5-10.1); Creatinine Clr Calc Pharmacy 42.8 ml/min; Est GFR (African American) 33.4; Est GFR (Non-African American) 28.8; Potassium 4.4 mmol/L (3.5-5.1)
[2019-12-29] MEDS: ESCITALOPRAM OXALATE 10 MG TAB PO SCH (08:43)
[2019-12-29] MEDS: BUMETANIDE 1 MG TAB PO SCH ×2 (08:43→17:25)
[2019-12-29] MEDS: LABETALOL HCL 300 MG TAB PO SCH ×2 (08:43→20:32)
[2019-12-29] MEDS: allopurinoL 100 MG TAB PO SCH (08:43)
[2019-12-29] MEDS: POTASSIUM CHLORIDE 20 MEQ TABCR PO SCH ×2 (08:43→17:25)
[2019-12-29] MEDS: PANTOprazole 40 MG TAB PO SCH (08:44)
[2019-12-29] MEDS: FERROUS SULFATE 325 MG TAB PO SCH (08:44)
[2019-12-29] MEDS: INSULIN ASPART 100 UNITS/ML 3 ML PEN SC SCH ×4 (08:44→20:54)
[2019-12-29] MEDS: DICLOFENAC SOD 1% GEL 100 GM TUBE EXT SCH ×2 (08:45→20:54)
[2019-12-29] MEDS: FLUTICASONE/VILANTEROL 200/25MCG 14 PUFFS/INHALER INH SCH (08:45)
[2019-12-29] MEDS ORDERED: PIPERACILLIN/TAZOBACTAM 4.5 GM in DEXTROSE 5% 100 ML IV STA (08:53)
[2019-12-29] MEDS ORDERED: PHARMACY GLYCEMIC MGMT CONSULT SCH (09:00)
[2019-12-29] MEDS ORDERED: INSULIN GLARGINE SOLOSTAR 100 UNITS/ML 3 ML PEN SC SCH ×3 (09:00→21:00)
--- NOTE | 2019-12-29 09:13 | Pharmacy Report ---
Pharmacy Glycemic Short Note 2 - Date of Service December 29, 2019 - Glycemic Short BSG Results (Last 24 hours): 12/28/19 12/29/19 12/29/19 19:34 07:30 08:00 Glucose 122 H 226 H POC Glucose 210 H OUTPATIENT ANTIDIABETIC REGIMEN: * Glargine 100units Q PM * Novolog 20 units w/ meals + sliding scale, up to 80 units per day * A1c = 7.6% 08/10/19 ASSESSMENT: * Type 2 diabetic admitted yesterday due to worsening cellulitis of lower extremities and non-healing ulcerations * Patient has been followed by glycemic control service several times in the past year * Will base patient's insulin needs upon an anticipated total daily insulin requirement of ~160 units while hospitalized (while tolerating a diet) * Will redistribute basal/bolus regimen to give a 50:50 balance. * Of note, on prior admissions, pt was frequently given steroid therapy which she is not currently receiving. In the past she had required carb ratios of 4-5 however given lack of steroid therapy this admission will use lesser doses. PLAN FOR INPATIENT GLYCEMIC CONTROL: * Check A1c with tomorrow's labs * Basal insulin * Lantus 40 units SQ BID * Bolus insulin * NovoLog per scale ACHS and at 0200 tonight * Goal Range: Low 110 mg/dL - High 140 mg/dL * Correction Factor: 15 mg/dL/unit * Nutritional / Prandial insulin per carb ratio of 1 unit per 6 grams CHO consumed PLAN FOR DISCHARGE: * to be determined
[2019-12-29] MEDS ORDERED: FUROSEMIDE 40 MG in SYRINGE 0 ML IV ONE ×2 (10:30→19:00)
--- NOTE | 2019-12-29 10:31 | XRay Report ---
XR chest 1V portable CLINICAL HISTORY: ?fluid overload dyspnea COMPARISON STUDY: 07/27/2019 FINDINGS: Moderate cardiomegaly. Prominent pulmonary vasculature. Diaphragms are smooth. The costophr enic angles are sharp. IMPRESSION: Mild congestive heart failure ACT 112: Negative or not required by law. The above report was generated using voice recognition software. It may contain grammatical, syntax or spelling errors. Electronically signed by: Bharat Kitchen M.D. 12/29/2019 10:30 AM
[2019-12-29] MEDS: ALBUT/IPRATROP 3MG/0.5MG NEB 3 ML VIAL NEB PRN ×2 (11:33→19:54)
--- NOTE | 2019-12-29 14:58 | Medical Student Progress Note ---
Date of Service December 29, 2019 Assessment & Plan (1) Cellulitis: Patient is a 74 yo female with a complicated past medical history that includes DM II with CKD. asthma, heart failure, and peripheral vascular disease admitted for bilateral LE cellulitis and edema with nonhealing ulcers failed outpatient therapy. Bilateral lower extremity cellulitis failed outpatient treatment without sepsis - sec to worsening of underlying venous stasis/edema - wound and blood cultures pending - initial gram stain of wound culture showed gram negative bacilli - Continue IV Zosyn - wound care has been consulted; nursing will be by to dress legs - continue morphine for pain, emphasize control of edema before escalating pain control Acute exacerbation of HFpEF - CXR consistent with "mild congestive heart failure" - Patient has hx of heart failure with preserved EF, being managed with bumetanide 4 mg BID -Patient reports that she has not been taking her diuretic as instructed recently, which may have triggered the BLE edema -IV furosemide was started today, with placement of purewick catheter; as of 3 PM today, her urine output is 450 mL - I and Os. - Monitor renal function Hypoxia - ? sec to CHF - patient is currently on 2L of oxygen with nasal cannula (not on oxygen at home) Persistent Asthma: - Patient has some wheezing - No sign of exacerbation - Albuterol treatments prn for wheezing - Continue daily Breo Ellipta. Type II DM with CKD and peripheral neuropathy: - receiving sliding scale as well as basal (50 units BID) insulin - most recent glucose (7:30 AM) was 226 mg/dL - creatinine was 1.73 on admission, which is consistent with her baseline History of anxiety disorder - receiving escitalopram, which is her home medication - since pt says dyspnea and anxiety disorder are closely related, control dyspnea before starting any additional anxiety medication HTN: - currently well-controlled - Continue home labetalol 600mg BID, Bumex 4mg BID SHELIA: - Continue to use CPAP Normocytic Anemia - Hgb: 10.0, Hct 30.9%, MCV 82.2 - likely anemia of chronic disease secondary to CKD - numbers are consistent with her baseline, continue to monitor, treat if levels change significantly or pt becomes symptomatic Hypothyroidism: - continue home levothyroxine 200mcg daily OA bilateral knees: - Continue diclofenac gel BID to affected areas GERD: - Patient on omeprazole 20mg daily at home - While inpatient- pantoprazole 40mg daily Hyperlipidemia: - Continue home simvastatin 20mg daily Code Status:full FEN/GI: Heart Healthy diet DVT ppx: Continue home warfarin dosing Dispo: Med/Surg floor (2) 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, with long- term current use of insulin: (3) Obstructive sleep apnea syndrome: (4) Asthma: (5) CHF (congestive heart failure): Heart failure chronicity: chronic Heart failure type: diastolic Qualified Code(s): I50.32 - Chronic diastolic (congestive) heart failure (6) Hypokalemia: (7) Chronic GERD: (8) Hyperlipidemia: (9) Anemia: (10) Dyspnea: Supervising Attestation Medical student Supervision Note: I independently interviewed and examined the patient and verified the johansen history and physical, reviewed labs and image studies, discussed the case with Adán Pulido and agree with the findings and care plan. Cellulitis - failed outpatient treatment continue IV abx. Diurese to help with leg edema sec to fluid overload. Subjective . Patient reports that she still feels a lot of pain in both legs and that the morphine is not helping with the pain. She describes the pain as shooting down her legs. Patient is also having dyspnea while resting in bed. She also reports wheezing. Denies any chest pain. She says she feels increasingly anxious despite receiving her escitalopram; however, she also says that her anxiety and her dyspnea feed off of each other, as anxiety makes her more short of breath, and being short of breath makes her more anxious Review of Systems Constitutional: no fever, no chills and no sweats bilateral shooting leg pain Respiratory: + dyspnea (at rest) Physical Exam Constitutional: + morbidly obese; + uncomfortable Respiratory: Auscultation: + diminished lung sounds (bilaterally) and + wheezes conversational dyspnea Cardiovascular: Rate/Rhythm: regular rate and regular rhythm Heart Sounds: normal S1 and normal S2; no murmur and no cardiac rub Extremities: + edema (bilateral lower extremity) Skin: BLE edema with erythema. Chronic venous stasis changes +. There are multiple weeping ulcers on both legs. Results & Data ([facility]) Vital Signs (Past 12 Hours) Vital Signs Temp Pulse Pulse Pulse Resp BP BP 12/29/19 12:00 36.6 C 80 18 139/65 12/29/19 11:35 80 18 12/29/19 08:00 36.9 C 95 H 18 139/68 12/29/19 07:38 87 12/29/19 04:19 37.0 C 102 H 20 128/63 Pulse Ox 12/29/19 12:00 95 12/29/19 11:35 95 12/29/19 08:00 95 12/29/19 07:38 12/29/19 04:19 94
[2019-12-29] MEDS: WARFARIN SOD 2.5 MG TAB PO SCH (16:01)
[2019-12-29] MEDS: PIPERACILLIN/TAZOBACTAM 4.5 GM in DEXTROSE 5% 100 ML IV SCH (16:01)
[2019-12-29] MEDS: ACETAMINOPHEN 325 MG TAB PO PRN (20:32)
[2019-12-29] MEDS: SIMVASTATIN 20 MG TAB PO SCH (20:32)
[2019-12-29] MEDS: ASPIRIN 81 MG ECTAB PO SCH (20:32)
[2019-12-29] MEDS: ROPINIROLE HCL 1 MG TABLET PO SCH (20:32)
[2019-12-29] MEDS: INSULIN GLARGINE SOLOSTAR 100 UNITS/ML 3 ML PEN SC SCH (20:53)
[2019-12-30] MEDS: MoRPHine SULFATE 4 MG/ML 1 ML CARP\\VIAL IV PRN ×4 (00:03→20:58)
[2019-12-30] MEDS: PIPERACILLIN/TAZOBACTAM 4.5 GM in DEXTROSE 5% 100 ML IV SCH ×3 (00:04→14:13)
[2019-12-30] MEDS: INSULIN ASPART 100 UNITS/ML 3 ML PEN SC SCH ×6 (00:05→20:52)
[2019-12-30] MEDS ORDERED: INSULIN ASPART 100 UNITS/ML 3 ML PEN SC ONE (02:00)
[2019-12-30] MEDS: LEVOTHYROXINE SODIUM 200 MCG TABLET PO SCH (06:07)
[2019-12-30] MEDS: LEVOTHYROXINE SODIUM 75 MCG TABLET PO SCH (06:07)
[2019-12-30] MEDS: ACETAMINOPHEN 325 MG TAB PO PRN ×3 (06:12→20:57)
[2019-12-30 08:26] LABS: INR 2.8 (0.9-1.1); Prothrombin Time 28.4 Seconds (9.0-12.0)
[2019-12-30] MEDS: LABETALOL HCL 300 MG TAB PO SCH ×2 (09:29→20:50)
[2019-12-30] MEDS: ESCITALOPRAM OXALATE 10 MG TAB PO SCH (09:29)
[2019-12-30] MEDS: PANTOprazole 40 MG TAB PO SCH (09:29)
[2019-12-30] MEDS: allopurinoL 100 MG TAB PO SCH (09:30)
[2019-12-30] MEDS: FERROUS SULFATE 325 MG TAB PO SCH (09:30)
[2019-12-30] MEDS: INSULIN GLARGINE SOLOSTAR 100 UNITS/ML 3 ML PEN SC SCH ×2 (09:31→20:51)
[2019-12-30] MEDS: FLUTICASONE/VILANTEROL 200/25MCG 14 PUFFS/INHALER INH SCH (09:31)
[2019-12-30] MEDS: BUMETANIDE 1 MG TAB PO SCH ×2 (09:34→16:27)
[2019-12-30] MEDS: POTASSIUM CHLORIDE 20 MEQ TABCR PO SCH ×2 (09:35→16:28)
[2019-12-30] MEDS: DICLOFENAC SOD 1% GEL 100 GM TUBE EXT SCH ×2 (09:36→20:52)
[2019-12-30 09:50] LABS: Hematocrit (blood only) 31.2 % (37-47); Hemoglobin 9.9 g/dL (12.0-16.0); Mean Corpuscular Hemoglobin 26.2 pg (25-34); Mean Corpuscular Hgb Conc 31.7 g/dL (32-36); Mean Corpuscular Volume 82.5 fL (80-100); Mean Platelet Volume 10.1 fL (7.4-10.4); Platelet Count 439 K/uL (130-400); RDW Coefficient of Variation 16.7 % (11.5-14.5); RDW Standard Deviation 50.9 fL (36.4-46.3); Red Blood Count 3.78 M/uL (4.2-5.4); White Blood Count 13.63 K/uL (4.8-10.8)
[2019-12-30 10:05] LABS: BUN Creatinine Ratio 24.4 (10-20); Calcium 8.8 mg/dl (8.5-10.1); Creatinine Clr Calc Pharmacy 35.6 ml/min; Est GFR (African American) 26.7; Potassium 4.1 mmol/L (3.5-5.1)
[2019-12-30] MEDS ORDERED: POLYETHYLENE (MIRALAX) 17 GM PACK PO ONE (10:15)
--- NOTE | 2019-12-30 10:28 | Medical Student Progress Note ---
Date of Service December 30, 2019 Assessment & Plan (1) Cellulitis: Patient is a 74 yo female with a complicated past medical history that includes DM II with CKD, asthma, heart failure, and peripheral vascular disease admitted for bilateral LE cellulitis and edema with nonhealing ulcers failed outpatient therapy. Bilateral lower extremity cellulitis with underlying venous stasis - wound cultures show Pseudomonas aeruginosa that is susceptible to Zosyn - Blood cultures ng at 24 hours - Continue IV Zosyn Acute exacerbation of HFpEF - Patient has hx of heart failure with preserved EF, being managed with bumetanide 4 mg BID at home -Patient reports that she has not been taking her diuretic as instructed recently, which may have triggered the BLE edema - Patient has received IV furosemide with placement of purewick catheter - She is urinating well, has had a net output of about 1.5 L - continue diuresis - Monitor renal function Dyspnea at rest - CXR consistent mild congestive heart failure - likely secondary to fluid overload secondary to heart failure and recent lapse in diuretic therapy - patient is currently on 2L of oxygen with nasal cannula (not on oxygen at home) Persistent Asthma - Continue duonebs PRN - No wheezing today, clinically improved - Continue daily Breo Ellipta. Type II DM with CKD and peripheral neuropathy - Basal lantus 50units BID + SSI - CF and ratio tightened for AM BSG >200 - creatinine was 1.73 on admission, which is consistent with her baseline History of anxiety disorder - Anxiety improving with improving respiratory status - Continue home escitalopram - since pt says dyspnea and anxiety disorder are closely related, control dyspnea before starting any additional anxiety medication HTN - Continue home labetalol 600mg BID, Bumex 4mg BID SHELIA - Continue to use CPAP Normocytic Anemia - Hgb: 10.0, Hct 30.9%, MCV 82.2 - likely anemia of chronic disease secondary to CKD - CBC daily Hypothyroidism - continue home levothyroxine 200mcg daily OA bilateral knees - Continue diclofenac gel BID to affected areas - Ambulate to chair daily GERD - Patient on omeprazole 20mg daily at home - While inpatient- pantoprazole 40mg daily Hyperlipidemia - Continue home simvastatin 20mg daily Code Status: full FEN/GI: Heart Healthy diet DVT ppx: Continue home warfarin dosing Dispo: Med/Surg floor (2) 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, with long- term current use of insulin: (3) Obstructive sleep apnea syndrome: (4) Asthma: (5) CHF (congestive heart failure): Heart failure chronicity: chronic Heart failure type: diastolic Qualified Code(s): I50.32 - Chronic diastolic (congestive) heart failure (6) Hypokalemia: (7) Chronic GERD: (8) Hyperlipidemia: (9) Anemia: (10) Dyspnea: Supervising Attestation Medical Student Supervision Note: I independently interviewed and examined the patient and verified the johansen history and physical, reviewed labs and image studies, discussed the case with Adán Pulido and agree with the findings and care plan. Diuresing well. decreased leg edema should help with improvement in cellulitis. continue current regimen Subjective This morning, Ruth says she feels like she is in less pain. She says she is not having the shooting BLE pain that she endorsed yesterday, which improved upon wound dressing by wound care. She does endorse cramping leg pain, but feels that this is because she has not been moving her legs. Nursing says they will help her sit in a chair today, and the patient hopes that this will help with the cramping. She feels her breathing has improved minimally. After the albuterol treatment yesterday, she has not been wheezing. Her anxiety has improved. Review of Systems Constitutional: no fever, no chills and no fatigue "cramping pain" in BLE Respiratory: + dyspnea (improved from yesterday, but continues to have SOB with conversation) Physical Exam Constitutional: + morbidly obese Respiratory: no audible wheezes Auscultation: + diminished lung sounds (improved from yesterday); no wheezes Cardiovascular: RRR, no murmur, no edema Skin: Dressings intact, clean, dry bilaterally. Results & Data ([facility]) Vital Signs (Past 12 Hours) Vital Signs Temp Pulse Pulse Resp BP BP Pulse Ox 12/30/19 07:46 36.7 C 84 18 145/68 H 93 12/30/19 04:10 36.9 C 87 20 154/65 H 94 12/30/19 02:00 90 12/30/19 00:06 36.8 C 85 20 140/62 94 Resident Activity Tracking Resident Involvement: Resident Care Provided Care Provided: Adult [facility] Medicine
[2019-12-30 10:39] LABS: Basophils # (auto) 0.03 K/uL (0-0.2); Basophils % (auto) 0.2 %; Eosinophils # (auto) 0.41 K/uL (0-0.5); Immature Granulocytes # (auto) 0.06 K/uL (0.00-0.02); Immature Granulocytes % (auto) 0.4 %; Lymphocytes # (auto) 1.38 K/uL (1.2-3.4); Lymphocytes % (auto) 10.1 %; Monocytes # (auto) 1.33 K/uL (0.11-0.59); Monocytes % (auto) 9.8 %; Neutrophils # (auto) 10.42 K/uL (1.4-6.5); Neutrophils % (auto) 76.5 %
[2019-12-30 12:44] LABS: Estimated Average Glucose 192 mg/dl; Hemoglobin A1C 8.3 % (4.5-5.6)
[2019-12-30] MEDS ORDERED: WARFARIN SOD 5 MG TAB PO SCH (16:00)
[2019-12-30] MEDS: SIMVASTATIN 20 MG TAB PO SCH (20:50)
[2019-12-30] MEDS: ASPIRIN 81 MG ECTAB PO SCH (20:50)
[2019-12-30] MEDS: ROPINIROLE HCL 1 MG TABLET PO SCH (20:51)
[2019-12-31] MEDS: PIPERACILLIN/TAZOBACTAM 4.5 GM in DEXTROSE 5% 100 ML IV SCH ×4 (00:28→23:37)
[2019-12-31] MEDS: ACETAMINOPHEN 325 MG TAB PO PRN ×3 (04:21→21:19)
[2019-12-31] MEDS: LEVOTHYROXINE SODIUM 75 MCG TABLET PO SCH (06:16)
[2019-12-31] MEDS: LEVOTHYROXINE SODIUM 200 MCG TABLET PO SCH (06:16)
[2019-12-31 07:16] LABS: Basophils # (auto) 0.01 K/uL (0-0.2); Basophils % (auto) 0.1 %; Eosinophils # (auto) 0.52 K/uL (0-0.5); Eosinophils % (auto) 4.1 %; Hematocrit (blood only) 30.8 % (37-47); Hemoglobin 9.5 g/dL (12.0-16.0); Immature Granulocytes # (auto) 0.03 K/uL (0.00-0.02); Immature Granulocytes % (auto) 0.2 %; Lymphocytes # (auto) 1.35 K/uL (1.2-3.4); Lymphocytes % (auto) 10.7 %; Mean Corpuscular Hemoglobin 25.6 pg (25-34); Mean Corpuscular Hgb Conc 30.8 g/dL (32-36); Mean Platelet Volume 9.7 fL (7.4-10.4); Monocytes # (auto) 1.16 K/uL (0.11-0.59); Monocytes % (auto) 9.2 %; Neutrophils # (auto) 9.59 K/uL (1.4-6.5); Neutrophils % (auto) 75.7 %; Platelet Count 397 K/uL (130-400); RDW Coefficient of Variation 16.8 % (11.5-14.5); RDW Standard Deviation 51.9 fL (36.4-46.3); Red Blood Count 3.71 M/uL (4.2-5.4); White Blood Count 12.66 K/uL (4.8-10.8)
[2019-12-31 07:27] LABS: INR 3.4 (0.9-1.1); Prothrombin Time 33.8 Seconds (9.0-12.0)
[2019-12-31 07:53] LABS: BUN Creatinine Ratio 24.6 (10-20); Calcium 8.7 mg/dl (8.5-10.1); Creatinine Clr Calc Pharmacy 32.8 ml/min; Est GFR (African American) 24.5; Est GFR (Non-African American) 21.2; Potassium 3.9 mmol/L (3.5-5.1)
[2019-12-31 07:55] LABS: Albumin Globulin Ratio 0.4 (0.9-2); Bilirubin,Total 0.7 mg/dl (0.2-1); Globulin 4.6 gm/dl (2.5-4.0); Total Protein 6.6 gm/dl (6.4-8.2)
--- NOTE | 2019-12-31 08:11 | Electrocardiogram Report ---
Test Reason : Blood Pressure : / mmHG Vent. Rate : 082 BPM Atrial Rate : 082 BPM P-R Int : 188 ms QRS Dur : 140 ms QT Int : 418 ms P-R-T Axes : 049 001 085 degrees QTc Int : 488 ms Sinus rhythm with occasional Premature ventricular complexes Left bundle branch block Abnormal ECG When compared with ECG of 27-JUL-2019 00:55, Premature ventricular complexes are now Present Confirmed by Judson Urbina ([id number]) on 12/31/2019 8:10:41 AM Referred By: Dora Larsen Confirmed By:Judson Urbina
[2019-12-31] MEDS: allopurinoL 100 MG TAB PO SCH (08:21)
[2019-12-31] MEDS: FERROUS SULFATE 325 MG TAB PO SCH (08:21)
[2019-12-31] MEDS: ESCITALOPRAM OXALATE 10 MG TAB PO SCH (08:22)
[2019-12-31] MEDS: PANTOprazole 40 MG TAB PO SCH (08:22)
[2019-12-31] MEDS: LABETALOL HCL 300 MG TAB PO SCH ×2 (08:22→21:22)
[2019-12-31] MEDS: MoRPHine SULFATE 4 MG/ML 1 ML CARP\\VIAL IV PRN ×2 (08:23→21:19)
[2019-12-31] MEDS: POTASSIUM CHLORIDE 20 MEQ TABCR PO SCH ×2 (08:23→17:27)
[2019-12-31] MEDS: FLUTICASONE/VILANTEROL 200/25MCG 14 PUFFS/INHALER INH SCH (08:27)
[2019-12-31] MEDS: POLYETHYLENE (MIRALAX) 17 GM PACK PO SCH (08:27)
[2019-12-31] MEDS: INSULIN ASPART 100 UNITS/ML 3 ML PEN SC SCH ×4 (08:29→21:23)
[2019-12-31] MEDS: INSULIN GLARGINE SOLOSTAR 100 UNITS/ML 3 ML PEN SC SCH ×2 (08:30→21:23)
[2019-12-31] MEDS: FUROSEMIDE 40 MG in SYRINGE 0 ML IV ONE ×2 (08:31→17:14)
[2019-12-31] MEDS: DICLOFENAC SOD 1% GEL 100 GM TUBE EXT SCH ×2 (08:31→21:30)
[2019-12-31] MEDS ORDERED: ALBUMIN 25% 50 ML IV ONE (09:00)
[2019-12-31] MEDS: SIMETHICONE 80 MG CHEW PO PRN ×2 (10:02→21:19)
--- NOTE | 2019-12-31 11:08 | Medical Student Progress Note ---
Date of Service December 31, 2019 Assessment & Plan (1) Cellulitis: Patient is a 74 yo female with a complicated past medical history that includes DM II with CKD, asthma, heart failure, and peripheral vascular disease admitted for bilateral LE cellulitis and edema with nonhealing ulcers failed outpatient therapy. Bilateral lower extremity cellulitis with underlying venous stasis - wound cultures show Pseudomonas aeruginosa that is susceptible to Zosyn. ? nosocomial - Blood cultures ng at 48 hours - being followed by wound care, per their photos BLE edema has not improved - Continue IV Zosyn. home on ?quinolone. - external leg compression with daily wraps for venous stasis SONIA on CKD 4 - Creatinine 2.34 (baseline is 1.7) - Nephro consulted - advises to avoid overdiuresis - likely secondary to decreased renal perfusion secondary to right heart failure - Monitor renal function Acute exacerbation of HFpEF with underlying right heart dysfunction - Patient has hx of heart failure with preserved EF, being managed with bumetanide 4 mg BID at home - Patient reports that she has not been taking her diuretic as instructed recently, which may have triggered the BLE edema - Urine output in am about 450 mL - Continue home Bumex Dyspnea at rest - improved, patient reports that she has not always been using nasal cannula - CXR consistent mild congestive heart failure - likely secondary to fluid overload secondary to heart failure and recent lapse in diuretic therapy - wean off oxygen Persistent Asthma - Continue duonebs PRN - No wheezing today, clinically improved - Continue daily Breo Ellipta. Type II DM - Per pharmacist recommendation, 50-55 units Lantus sq BID - Correction factor of 10 and insulin to carb ratio of 1:4 HTN - Continue home labetalol 600mg BID, Bumex 4mg BID SHELIA - Continue to use CPAP Normocytic Anemia - Hgb: 10.0, Hct 30.9%, MCV 82.2 - likely anemia of chronic disease secondary to CKD - CBC daily Hypothyroidism - continue home levothyroxine 200mcg daily OA bilateral knees - Continue diclofenac gel BID to affected areas - Ambulate to chair daily GERD - Patient on omeprazole 20mg daily at home - While inpatient- pantoprazole 40mg daily Hyperlipidemia - Continue home simvastatin 20mg daily History of anxiety disorder - Anxiety improving with improving respiratory status - Continue home escitalopram Code Status: full FEN/GI: Heart Healthy diet DVT ppx: Continue home warfarin dosing Dispo: Med/Surg floor (2) 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, with long- term current use of insulin: (3) Obstructive sleep apnea syndrome: (4) Asthma: (5) CHF (congestive heart failure): Heart failure chronicity: chronic Heart failure type: diastolic Qualified Code(s): I50.32 - Chronic diastolic (congestive) heart failure (6) Hypokalemia: (7) Chronic GERD: (8) Hyperlipidemia: (9) Anemia: (10) Dyspnea: Supervising Attestation Medical Student Supervision Note: I independently interviewed and examined the patient and verified the johansen history and physical, reviewed labs and image studies, discussed the case with Adán Pulido and agree with the findings and care plan. creatinine higher. hasn't diuresed much- consulted nephro - leg swelling likely just venous stasis or right heart dysfunction - to utilize leg wraps. follow renal function. pseudomonas ? nosocomial. continue abx - switch to oral med in am. Subjective Terrie says her BLE pain has improved with the new dressings. She feels less short of breath. Her anxiety has improved. Review of Systems Review of Systems: All systems reviewed & are unremarkable except as noted in HPI & below Respiratory: no cough, no dyspnea on exertion and no wheezing Physical Exam Constitutional: + morbidly obese Respiratory: normal respiratory effort, lungs clear to auscultation no audible wheezes Auscultation: no wheezes Cardiovascular: RRR, no murmur, no edema Skin: Dressings intact, clean, dry bilaterally. Results & Data ([facility]) Vital Signs (Past 12 Hours) Vital Signs Temp Pulse Pulse Resp BP Pulse Ox 12/31/19 07:52 36.7 C 73 18 135/65 95 12/31/19 04:53 84 12/31/19 02:59 36.8 C 65 18 118/69 96 12/30/19 23:06 36.8 C 80 19 100/57 L 96 Resident Activity Tracking Resident Involvement: Resident Care Provided Care Provided: Adult Hospital Medicine
--- NOTE | 2019-12-31 12:15 | Nephrology Consultation ---
Date of Consultation December 31, 2019 Assessment & Plan (1) Acute kidney injury: * SONIA is due to intravascular volume contraction. Avoid overdiuresis. LE swelling in on the basis of diastolic CHF and LE venous insufficiency * Continue Bumex 4 mg po BID for now * Monitor PRP * Will check FeNa (2) Chronic kidney disease: * Baseline Cr has been 1.7. Previous evaluation has revealed acellular urine sediment, UPCR < 0.2, abdominal CT 07/23 with renal cortical thinning. Renal impairment is on the basis of microvascular disease and impaired perfusion associated w/ diastolic CHF (3) Anemia: * Will check iron studies, B12, folate and FOBT (4) Lymphedema: * Avoid overdiuresis. Primary therapy is external compression w/ daily wraps. Recommend consultation w/ wound care and arrange home health at discharge to continue wrapping legs History of Present Illness Reason for Consultation: SONIA/CKD Attending Physician: Dotty Santos MD History of Present Illness Mrs. Cisneros is a 74 year old white female who is seen at the request of Dr. Maxim Zimmerman for evaluation of SONIA/CKD. Medical records in the EMR were reviewed today and are summarized as follows: Mrs. Cisneros has stage III CKD (moderate impairment). Baseline Cr has been 1.7 w/ EGFR 30 cc/min. Her renal impairment has been due to microvascular disease and impaired renal perfusion associated w/ diastolic CHF. Mrs. Cisneros's medical history is significant for obesity (BMI 56), SHELIA, diastolic CHF. Echocardiogram 02/19 revealed LVEF 55 - 60%. R heart was poorly visualized due to body habitus. She has been closely monitored in [facility] CH[facility] clinic. Her EDW has been 312 lbs. Her medical regimen has included Bumex 2 mg two tablets twice daily and Metolazone 2.5 mg daily as needed for weight gain. LE doppler studies have revealed venous insufficiency. Her daughters had been wrapping her legs to limit swelling. Mrs. Cisneros reports that over the last several weeks she has reduced her Bumex to 2 mg twice daily to limit the number of bathroom visits. She has stopped wrapping her legs. She does still try to follow a low sodium diet. Mrs. Cisneros presented to wound clinic yesterday and noted to have progressive LE cellulitis. Admission was advised for IV antibiotic therapy and ongoing medical care. Bumex has been reinstituted at 4 mg po BID. Patient has diuresed net 500 cc since admission. Serum Cr has risen to 2.2. Allergies Allergy/AdvReac Type Severity Reaction Status Date / Time ibuprofen Allergy Intermediate HIVES Verified 12/28/19 19:56 lisinopril AdvReac Mild COUGH Verified 12/28/19 19:56 pramipexole AdvReac Unknown Verified 12/28/19 19:56 zolpidem AdvReac drowsinesss Verified 12/28/19 19:56 Home Medications Home Medications Medication Instructions Recorded Confirmed Type aspirin [Aspirin Low Dose] 81 mg PO HS #0 07/25/17 12/28/19 History cholecalciferol (vitamin D3) 3,000 unit PO QAM #0 tab 07/25/17 12/28/19 History [Vitamin D3] cyanocobalamin (vitamin B-12) 1,000 mcg PO QAM #0 tab 07/25/17 12/28/19 History [Vitamin B-12] omeprazole 20 mg PO QAM #0 cap 07/25/17 12/28/19 History levothyroxine 200 mcg tablet 200 mcg PO QAM 03/09/19 12/28/19 History melatonin 10 mg capsule 10 mg PO HS PRN 03/09/19 12/28/19 History acetaminophen 500 mg capsule 500 mg PO Q6H PRN 04/06/19 12/28/19 History albuterol sulfate 90 mcg/actuation 2 puff INHALATION Q4H PRN #18 gm 06/15/19 12/28/19 Rx aerosol inhaler ferrous sulfate 325 mg (65 mg 325 mg PO DAILY 06/15/19 12/28/19 History iron) tablet levalbuterol HCl 0.63 mg/3 mL 0.63 mg INH Q6H PRN #36 ml 06/15/19 12/28/19 Rx solution for nebulization simvastatin 20 mg tablet 20 mg PO PM #90 tab 07/23/19 12/28/19 Rx buspirone 5 mg tablet 5 mg PO BID PRN #30 tab 08/01/19 12/28/19 Rx labetalol 600 mg PO BID #720 tab 08/01/19 12/28/19 Rx warfarin See Rx Instructions PO UD 90 Days 08/01/19 12/28/19 Rx #70 tab levothyroxine 75 mcg tablet 75 mcg PO QAM #90 tab 09/08/19 12/28/19 Rx blood-glucose meter #1 ea 09/29/19 12/28/19 Rx allopurinol 100 mg tablet 100 mg PO DAILY #30 tab 10/08/19 12/28/19 Rx bumetanide 2 mg tablet 4 mg PO .COMPLEX #90 tab 10/12/19 12/28/19 Rx diclofenac sodium 1 % topical gel 2 gm TOP QID #100 gm 10/19/19 12/28/19 Rx escitalopram oxalate 10 mg tablet 10 mg PO DAILY #90 tab 10/19/19 12/28/19 Rx ropinirole 1 mg tablet 1 mg PO HS #90 tab 10/19/19 12/28/19 Rx blood sugar diagnostic See Rx Instructions .ROUTE 11/03/19 12/28/19 Rx .COMPLEX #300 strip cyclobenzaprine 5 mg tablet 5 mg PO HS PRN #30 tab 11/16/19 12/28/19 Rx metolazone 2.5 mg tablet 2.5 mg PO DAILY PRN #15 tab 11/19/19 12/28/19 Rx insulin aspart U-100 100 unit/mL See Rx Instructions SQ .COMPLEX 11/24/19 12/28/19 Rx (3 mL) subcutaneous pen #30 ml fluticasone furoate 200 1 puffs INH DAILY #60 ea 12/03/19 12/28/19 Rx mcg-vilanterol 25 mcg/dose inhalation powder potassium chloride 20 mEq 20 meq PO BID #180 tab 12/14/19 12/28/19 Rx tablet,extended release(part/cryst) hydroxyzine HCl 25 mg tablet 25 mg PO BID PRN #30 tab 12/17/19 12/28/19 Rx insulin glargine 100 unit/mL (3 100 unit SUBCUT QPM 90 Days #90 ml 12/17/19 12/28/19 Rx mL) subcutaneous pen acetic acid 0.25 % irrigation 100 ml IR DAILY 14 Days #1000 ml 12/24/19 12/28/19 Rx solution cefdinir 300 mg capsule 300 mg PO BID 14 Days #28 cap 12/24/19 12/28/19 Rx Patient History Medical History Anemia Arthritis (Acute) CHF (congestive heart failure) (Chronic) Chronic GERD (Chronic) Chronic kidney disease, stage III (moderate) COPD (chronic obstructive pulmonary disease) (Chronic) Depression (Chronic) Diabetes (Resolved) Diabetic neuropathy (Chronic) Health care maintenance Hemorrhoids (Chronic) HTN (hypertension) (Chronic) Hyperlipidemia (Chronic) Hypothyroidism Left bundle branch block (Chronic) Lymphedema (Chronic) Mild mitral stenosis (Chronic) Mitral regurgitation (Chronic) Morbid obesity (Chronic) SHELIA on CPAP Osteopenia (Chronic) Proteus infection (Inactive) Restless leg syndrome (Chronic) Sleep apnea (Inactive) Stage III chronic kidney disease (Chronic) Urinary incontinence (Chronic) Venous insufficiency (Chronic) Vitamin D deficiency Vulvar cyst (Chronic) Vulvovaginitis (Chronic) Surgical History H/O hysterectomy with oophorectomy History of cataract surgery History of cholecystectomy History of hysterectomy Family History Mother Diabetes Colon cancer Lung cancer Father Esophageal cancer Other Hypertension Denies family history of Ovarian cancer Prostate cancer Myocardial infarction Breast cancer Social History Smoking Status: Never smoker Second Hand Exposure: No; Hx Alcohol Use: No Hx Substance Use: No Preferred Language: Kyrgyz Communication Ability: Effective Visual Impairment: No Limitations Hearing Ability: Normal Mri Tech Required: No Beliefs That Will Affect Care: None marital status: Current Living Situation: Alone Current Living Situation Comment: [facility]lex Other Information That Helps Us Care for You: No Feels Safe at Home: Yes Safety Concerns: Feels Safe At This Time Seatbelt Use: always Review of Systems Constitutional: + weakness; no fever Eyes: no problem reported Ear, Nose, Mouth, Throat: no problem reported Respiratory: no cough and no dyspnea Cardiovascular: + edema; no chest pain and no palpitations Gastrointestinal: no abdominal pain and no diarrhea/loose stools Genitourinary: no dysuria and no hematuria Musculoskeletal: no back pain Integumentary: no rash Neurologic: no falls, no dizziness and no confusion Physical Exam Constitutional: + obese; not in distress Eyes: PERRL, conjunctivae normal, anicteric sclerae ENMT: external ear and nose normal, oropharynx normal Neck: trachea midline, no thyromegaly Respiratory: normal respiratory effort, lungs clear to auscultation Cardiovascular: Rate/Rhythm: regular rate and regular rhythm Heart Sounds: no murmur Extremities: + edema (tense edema of LE with weeping bullae) Gastrointestinal (Abdomen): normal bowel sounds, soft, nontender, no hepatosplenomegaly Musculoskeletal: Extremities: no cyanosis Skin: no rashes, warm and dry Neurologic: awake; not confused Results & Data Vital Signs (Past 12 Hours) Vital Signs Temp Pulse Pulse Resp BP Pulse Ox 12/31/19 07:52 36.7 C 73 18 135/65 95 12/31/19 04:53 84 12/31/19 02:59 36.8 C 65 18 118/69 96 Laboratory Tests 12/23/18 12/23/18 12/30/19 10:45 10:45 07:30 WBC Hgb Hct Plt Count Sodium Potassium Chloride Carbon Dioxide BUN Creatinine 2.08 H D Glucose Albumin Urine Color Yellow Urine Appearance Clear Urine pH 5.5 Ur Specific [place] 1.019 Urine Protein Negative Urine Glucose (UA) Negative Urine Ketones Negative Urine Blood Negative Urine Nitrite Negative Urine Bilirubin Negative Urine Urobilinogen Negative Ur Leukocyte Esterase Negative Ur Random Creatinine 125.0 U Random Total Protein 18.1 H Protein/Creatinin Ratio 0.1 12/31/19 12/31/19 06:44 06:44 WBC 12.66 H Hgb 9.5 L Hct 30.8 L Plt Count 397 Sodium 140 Potassium 3.9 Chloride 108 H Carbon Dioxide 25 BUN 55 H Creatinine 2.23 H Glucose 157 H Albumin 2.0 L Urine Color Urine Appearance Urine pH Ur Specific [place] Urine Protein Urine Glucose (UA) Urine Ketones Urine Blood Urine Nitrite Urine Bilirubin Urine Urobilinogen Ur Leukocyte Esterase Ur Random Creatinine U Random Total Protein Protein/Creatinin Ratio PG Care Time/CCT Total # of Minutes Spent Total Time Spent with Patient: Total time spent is greater than 50% in coordination of care (as documented) at patient's floor/unit and/or counseling patient: Coding Level of Care Code 77897 Inpt Consult Level 5 Diagnoses Acute kidney injury N17.9 Chronic kidney disease N18.9 Anemia D64.9 Lymphedema I89.0
[2019-12-31 12:34] LABS: Creatinine Clr Calc Pharmacy 31.3 ml/min; Est GFR (African American) 23.2
--- NOTE | 2019-12-31 14:00 | Pharmacy Report ---
Pharmacy Glycemic Short Note 2 - Date of Service December 31, 2019 - Glycemic Short BSG Results (Last 24 hours): 12/30/19 12/30/19 12/31/19 16:58 20:33 06:44 Glucose 157 H POC Glucose 160 H 196 H 12/31/19 12/31/19 07:43 11:35 Glucose POC Glucose 176 H 224 H OUTPATIENT ANTIDIABETIC REGIMEN: * Glargine 100units Q PM * Novolog 20 units w/ meals + sliding scale, up to 80 units per day * A1c = 7.6% 08/10/19 ASSESSMENT: 12/30 * Patient's BSGs improving, received 161 units yesterday, 105 units of basal, 56 units of basal * Fasting this morning 176, slightly increased basal to up to 55 units BID * Will continue current novolog parameters as patient's BSG have improved with this, will tighten if BSGs remain above goal range 12/28 * Type 2 diabetic admitted yesterday due to worsening cellulitis of lower extremities and non-healing ulcerations * Patient has been followed by glycemic control service several times in the past year * Will base patient's insulin needs upon an anticipated total daily insulin requirement of ~160 units while hospitalized (while tolerating a diet) * Will redistribute basal/bolus regimen to give a 50:50 balance. * Of note, on prior admissions, pt was frequently given steroid therapy which she is not currently receiving. In the past she had required carb ratios of 4-5 however given lack of steroid therapy this admission will use lesser doses. PLAN FOR INPATIENT GLYCEMIC CONTROL: * Check A1c with tomorrow's labs * Basal insulin * Lantus 50-55 units SQ BID * Bolus insulin * NovoLog per scale ACHS and at 0200 tonight * Goal Range: Low 110 mg/dL - High 140 mg/dL * Correction Factor: 10 mg/dL/unit * Nutritional / Prandial insulin per carb ratio of 1 unit per 4 grams CHO consumed PLAN FOR DISCHARGE: * to be determined
--- NOTE | 2019-12-31 15:37 | XCELERA ---
[id number]
[2019-12-31] MEDS: WARFARIN SOD 2.5 MG TAB PO SCH (16:10)
[2019-12-31] MEDS: ONDANSETRON INJ 2 MG/ML 2 ML VIAL IV PRN (21:19)
[2019-12-31] MEDS: SIMVASTATIN 20 MG TAB PO SCH (21:21)
[2019-12-31] MEDS: ROPINIROLE HCL 1 MG TABLET PO SCH (21:21)
[2019-12-31] MEDS: ASPIRIN 81 MG ECTAB PO SCH (21:22)
[2020-01-01] MEDS: ONDANSETRON INJ 2 MG/ML 2 ML VIAL IV PRN (03:05)
[2020-01-01] MEDS: LEVOTHYROXINE SODIUM 200 MCG TABLET PO SCH (06:01)
[2020-01-01] MEDS: LEVOTHYROXINE SODIUM 75 MCG TABLET PO SCH (06:01)
[2020-01-01] MEDS: PIPERACILLIN/TAZOBACTAM 4.5 GM in DEXTROSE 5% 100 ML IV SCH ×3 (06:01→22:37)
[2020-01-01 07:48] LABS: INR 4.2 (0.9-1.1); Prothrombin Time 41.2 Seconds (9.0-12.0)
[2020-01-01 07:57] LABS: BUN Creatinine Ratio 23.7 (10-20); Calcium 9.5 mg/dl (8.5-10.1); Creatinine Clr Calc Pharmacy 31.3 ml/min; Est GFR (African American) 23.3; Est GFR (Non-African American) 20.1; Potassium 4.3 mmol/L (3.5-5.1)
[2020-01-01 08:01] LABS: Ferritin 210.6 ng/ml (8-388)
[2020-01-01 08:43] LABS: Folate (Folic Acid) 11.32 ng/ml (>5.38); Vitamin B12 > 2000 pg/ml (211-911)
[2020-01-01] MEDS: ESCITALOPRAM OXALATE 10 MG TAB PO SCH (09:14)
[2020-01-01] MEDS: allopurinoL 100 MG TAB PO SCH (09:15)
[2020-01-01] MEDS: POTASSIUM CHLORIDE 20 MEQ TABCR PO SCH ×2 (09:15→17:45)
[2020-01-01] MEDS: LABETALOL HCL 300 MG TAB PO SCH ×2 (09:15→20:36)
[2020-01-01] MEDS: FERROUS SULFATE 325 MG TAB PO SCH (09:15)
[2020-01-01] MEDS: DICLOFENAC SOD 1% GEL 100 GM TUBE EXT SCH ×2 (09:16→20:36)
[2020-01-01] MEDS: FLUTICASONE/VILANTEROL 200/25MCG 14 PUFFS/INHALER INH SCH (09:16)
[2020-01-01] MEDS: PANTOprazole 40 MG TAB PO SCH (09:16)
[2020-01-01] MEDS: INSULIN ASPART 100 UNITS/ML 3 ML PEN SC SCH ×4 (09:17→21:17)
[2020-01-01] MEDS: INSULIN GLARGINE SOLOSTAR 100 UNITS/ML 3 ML PEN SC SCH ×2 (09:18→21:17)
[2020-01-01] MEDS: POLYETHYLENE (MIRALAX) 17 GM PACK PO SCH (09:19)
[2020-01-01] MEDS: SIMETHICONE 80 MG CHEW PO PRN ×2 (09:28→21:16)
[2020-01-01 09:32] LABS: Basophils # (auto) 0.02 K/uL (0-0.2); Basophils % (auto) 0.1 %; Eosinophils % (auto) 0.7 %; Hematocrit (blood only) 34.6 % (37-47); Hemoglobin 10.4 g/dL (12.0-16.0); Immature Granulocytes # (auto) 0.06 K/uL (0.00-0.02); Immature Granulocytes % (auto) 0.4 %; Lymphocytes # (auto) 0.98 K/uL (1.2-3.4); Lymphocytes % (auto) 6.4 %; Mean Corpuscular Hemoglobin 25.4 pg (25-34); Mean Corpuscular Hgb Conc 30.1 g/dL (32-36); Mean Corpuscular Volume 84.4 fL (80-100); Monocytes # (auto) 0.89 K/uL (0.11-0.59); Monocytes % (auto) 5.8 %; Neutrophils # (auto) 13.31 K/uL (1.4-6.5); Neutrophils % (auto) 86.6 %; Platelet Count 521 K/uL (130-400); RDW Coefficient of Variation 16.8 % (11.5-14.5); RDW Standard Deviation 52.4 fL (36.4-46.3); White Blood Count 15.36 K/uL (4.8-10.8)
[2020-01-01 09:48] LABS: Albumin Globulin Ratio 0.4 (0.9-2); Albumin Level 2.1 gm/dl (3.4-5.0); Bilirubin,Total 0.6 mg/dl (0.2-1); Globulin 5.2 gm/dl (2.5-4.0); Total Protein 7.3 gm/dl (6.4-8.2)
--- NOTE | 2020-01-01 10:36 | Nephrology Progress Note ---
Date of Service January 01, 2020 Assessment & Plan (1) Acute kidney injury: * SONIA is due to intravascular volume contraction. Avoid overdiuresis. LE swelling in on the basis of diastolic CHF and LE venous insufficiency * Patient may have an ileus. Will change to Furosemide 60 mg IV BID and order KUB x-ray * Monitor PRP (2) Chronic kidney disease: * Baseline Cr has been 1.7. Previous evaluation has revealed acellular urine sediment, UPCR < 0.2, abdominal CT 07/23 with renal cortical thinning. Renal impairment is on the basis of microvascular disease and impaired perfusion associated w/ diastolic CHF (3) Anemia: * Iron sat 10% w/ ferritin ~ 200 * B12, folate acceptable. FOBT - pending * Consider iron supplementation when patient able to tolerate oral medications (4) Lymphedema: * Avoid overdiuresis. Primary therapy is external compression w/ daily wraps. Recommend consultation w/ wound care and arrange home health at discharge to continue wrapping legs Admission and Anticipated Discharge Date Admission Date: December 28, 2019 Subjective Mrs. Cisneros was seen & examined in her hospital room this morning. She c/o nausea and abdominal distention. She reports that wound care is now wrapping her legs. Review of Systems Constitutional: + weakness; no fever Eyes: no problem reported Ear, Nose, Mouth, Throat: no problem reported Respiratory: no cough and no dyspnea Cardiovascular: + edema; no chest pain and no palpitations Gastrointestinal: + nausea; no abdominal pain and no vomiting Genitourinary: no dysuria and no hematuria Musculoskeletal: no back pain Integumentary: no rash Neurologic: no dizziness and no confusion Physical Exam Constitutional: + obese; not in distress Eyes: PERRL, conjunctivae normal, anicteric sclerae ENMT: external ear and nose normal, oropharynx normal Neck: trachea midline, no thyromegaly Respiratory: normal respiratory effort, lungs clear to auscultation Cardiovascular: Rate/Rhythm: regular rate and regular rhythm Heart Sounds: no murmur Extremities: + edema (tense edema of LE with weeping bullae) Gastrointestinal (Abdomen): Inspection/Auscultation: + hypoactive bowel sounds Percussion/Palpation: + tympanic to percussion and + abdomen firm Musculoskeletal: Extremities: no cyanosis (calves wrapped bilaterally) Skin: no rashes, warm and dry Neurologic: awake; not confused Results & Data ([facility]) Vital Signs (Past 12 Hours) Vital Signs Temp Pulse Pulse Resp BP Pulse Ox 01/01/20 07:45 36.8 C 76 18 146/77 H 97 01/01/20 07:25 74 01/01/20 04:17 77 01/01/20 03:15 36.7 C 73 20 135/67 91 12/31/19 23:58 37.4 C 79 19 163/74 H 94 Laboratory Tests 01/01/20 06:47 Sodium 139 Potassium 4.3 Chloride 106 Carbon Dioxide 25 BUN 55 H Creatinine 2.33 H Glucose 173 H Transferrin % Sat 10 L Ferritin 210.6 PG Care Time/CCT Total # of Minutes Spent Total Time Spent with Patient: Total time spent is greater than 50% in coordination of care (as documented) at patient's floor/unit and/or counseling patient: Coding Level of Care Code 27260 Subseq Hosp Care Lvl 3 Diagnoses Acute kidney injury N17.9 Chronic kidney disease N18.9 Anemia D64.9 Lymphedema I89.0
--- NOTE | 2020-01-01 11:03 | XRay Report ---
XR KUB/Abdomen 1 view CLINICAL HISTORY: evaluate for ileus pain COMPARISON STUDY: 07/29/2019 FINDINGS: Moderate generalized ileus. No distinct significant distention of the sigmoid. IMPRESSION: Generalized ileus. Close monitoring is recommended to exclude any possibility of develop ing obstructive change. No evidence for rectal fecal impaction. ACT 112: Negative or not required by law. The above report was generated using voice recognition software. It may contain grammatical, syntax or spelling errors. Electronically signed by: Bharat Kitchen M.D. 01/01/2020 11:02 AM
[2020-01-01] MEDS ORDERED: FAMOTIDINE 10 MG in SYRINGE 4 ML IV ONE (13:45)
--- NOTE | 2020-01-01 13:48 | Pharmacy Report ---
Pharmacy Glycemic Short Note 2 - Date of Service January 01, 2020 - Glycemic Short BSG Results (Last 24 hours): 12/31/19 12/31/19 01/01/20 17:07 21:15 06:09 Glucose POC Glucose 155 H 147 H 186 H 01/01/20 01/01/20 01/01/20 06:47 06:47 07:29 Glucose 173 H Cancelled POC Glucose 202 H 01/01/20 11:42 Glucose POC Glucose 188 H OUTPATIENT ANTIDIABETIC REGIMEN: * Glargine 100units Q PM * Novolog 20 units w/ meals + sliding scale, up to 80 units per day * A1c = 8.3% 12/30/2019 ASSESSMENT: 12/31 * BSG ranged from 147- 224 yesterday, received 134 units of insulin * Fasting this morning 186, as this is above goal will adjust lantus slightly * Continuing current novolog parameters as prandial BSGs improved. 12/30 * Patient's BSGs improving, received 161 units yesterday, 105 units of basal, 56 units of basal * Fasting this morning 176, slightly increased basal to up to 55 units BID * Will continue current novolog parameters as patient's BSG have improved with this, will tighten if BSGs remain above goal range 12/28 * Type 2 diabetic admitted yesterday due to worsening cellulitis of lower extremities and non-healing ulcerations * Patient has been followed by glycemic control service several times in the past year * Will base patient's insulin needs upon an anticipated total daily insulin requirement of ~160 units while hospitalized (while tolerating a diet) * Will redistribute basal/bolus regimen to give a 50:50 balance. * Of note, on prior admissions, pt was frequently given steroid therapy which she is not currently receiving. In the past she had required carb ratios of 4 -5 however given lack of steroid therapy this admission will use lesser doses. PLAN FOR INPATIENT GLYCEMIC CONTROL: * Basal insulin * Lantus 55 units SQ BID * Bolus insulin * NovoLog per scale ACHS and at 0200 tonight * Goal Range: Low 110 mg/dL - High 140 mg/dL * Correction Factor: 10 mg/dL/unit * Nutritional / Prandial insulin per carb ratio of 1 unit per 4 grams CHO consumed PLAN FOR DISCHARGE: * A1c 8.3%, slightly above goal * F/u with outpatient provider for insulin adjustments as needed
[2020-01-01] MEDS: ACETAMINOPHEN 325 MG TAB PO PRN (16:16)
[2020-01-01] MEDS: FUROSEMIDE 60 MG in SYRINGE 0 ML IV SCH (17:45)
[2020-01-01] MEDS: SIMVASTATIN 20 MG TAB PO SCH (20:37)
[2020-01-01] MEDS: ASPIRIN 81 MG ECTAB PO SCH (20:37)
[2020-01-01] MEDS: ROPINIROLE HCL 1 MG TABLET PO SCH (20:37)
--- NOTE | 2020-01-01 20:42 | Hospitalist Progress Note ---
Date of Service January 01, 2020 Assessment & Plan (1) Cellulitis: Patient is a 74 year old female w/ past medical hx that includes DM II with CKD, asthma, heart failure, and peripheral vascular disease admitted for bilateral LE cellulitis and edema with nonhealing ulcers failed outpatient ther apy. Bilateral lower extremity cellulitis with underlying venous stasis - wound cultures show Pseudomonas aeruginosa that is susceptible to Zosyn. ? nosocomial - Blood cultures ng at 48 hours - being followed by wound care, per their photos BLE edema has not improved - Continue IV Zosyn. home on ?quinolone. - External leg compression with daily wraps for venous stasis, continue upon d/c Ileus - KUB showed moderate generalized ileus - had received ~2-3 doses of IV morphine over the 3 of the 4 previous days -discontinued IV morphine PRNs today. - Zofran did not help nausea. Pepcid provided some relief. - follow overnight. if no improvement - then make NPO and will need gentle hydration SONIA on CKD 4 - Creatinine 2.33 (baseline is 1.7) - Nephro consulted - changed to Furosemide 60 mg IV BID - advises to avoid overdiuresis - likely secondary to decreased renal perfusion - Monitor renal function Acute exacerbation of HFpEF with underlying right heart dysfunction - Patient has hx of heart failure with preserved EF, being managed with bumetanide 4 mg BID at home - Patient reports that she has not been taking her diuretic as instructed recently, which may have triggered the BLE edema - Urine output in am about 450 mL Dyspnea at rest - improved, patient reports that she has not always been using nasal cannula - CXR consistent mild congestive heart failure - likely secondary to fluid overload secondary to heart failure and recent lapse in diuretic therapy - wean off oxygen Persistent Asthma - Continue duonebs PRN - No wheezing today, clinically improved - Continue daily Breo Ellipta. Type II DM - Pharmacy managing. basal doses + SSI HTN - Continue home labetalol 600mg BID SHELIA - Continue to use CPAP Normocytic Anemia - Hgb: 10.4, Hct 34.6%, MCV 84.4 - likely anemia of chronic disease secondary to CKD - CBC daily Hypothyroidism - continue home levothyroxine 200mcg daily OA bilateral knees - Continue diclofenac gel BID to affected areas - Ambulate to chair daily GERD - Patient on omeprazole 20mg daily at home - While inpatient- pantoprazole 40mg daily Hyperlipidemia - Continue home simvastatin 20mg daily History of anxiety disorder - Anxiety improving with improving respiratory status - Continue home escitalopram Code Status: full FEN/GI: Heart Healthy diet DVT ppx: Continue home warfarin dosing Dispo: Med/Surg floor. COVID test ordered for possible SNF placement. (2) 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, with long- term current use of insulin: (3) Obstructive sleep apnea syndrome: (4) Asthma: (5) CHF (congestive heart failure): (6) Hypokalemia: (7) Chronic GERD: (8) Hyperlipidemia: (9) Anemia: (10) Dyspnea: Admission and Anticipated Discharge Date Admission Date: December 28, 2019 Supervising Physician Co-Signing Physician Notes Resident Physician Supervision Note: I independently interviewed and examined the patient and verified the johansen history and physical, reviewed labs and image studies, discussed the case with the resident Dr. Mendes and agree with the findings and care plan. Subjective The patient's only new complaint is nausea and dry heaves. No emesis. All other ros neg. No abdomen or chest pain, numbness tingling. Belly feels larger than normal for the patient. Review of Systems Review of Systems: Constitutional: Denies fever, chills, ENT: Denies ear pain Cardiovascular: Denies Chest pain, Respiratory: Denies shortness of Gastrointestinal: Denies vomiting, diarrhea Genitourinary: Denies urinary symptoms including dysuria Physical Exam Physical Exam: General: A&Ox3. NAD. Cooperative. HEENT: Atraumatic, normocephalic. Pulm: CTAB A&P. -wheezes, -rales, -rhonchi. Cardiac: RRR, -mrg. Radial pulses intact and symmetrical. Abdominal: Nontender, distended abdomen. BS present. Results & Data Results & Data ([facility]) Vital Signs (Past 12 Hours) Vital Signs Temp Pulse Pulse Resp BP Pulse Ox 01/01/20 20:24 37 C 81 18 147/73 H 94 01/01/20 15:39 76 01/01/20 15:10 36.6 C 70 18 165/74 H 95 01/01/20 11:35 36.9 C 74 18 162/80 H 94 (1) CHF (congestive heart failure) Heart failure chronicity: chronic Heart failure type: diastolic Qualified Code(s): I50.32 - Chronic diastolic (congestive) heart failure
--- NOTE | 2020-01-01 23:13 | Communication Note ---
Date of Service: January 01, 2020 Pt with worsening abd discomfort. XR consistent with developing ileus. Pt had a BM 2-3 days ago, but none since. Still passing flatus but decreasing with increased nausea. Pt made NPO, no narcotics on orderset. NGT deferred at this time as pt still passing flatus, will follow clinically.
[2020-01-02] MEDS: ACETAMINOPHEN 325 MG TAB PO PRN (04:28)
[2020-01-02] MEDS: ALBUT/IPRATROP 3MG/0.5MG NEB 3 ML VIAL NEB PRN (04:32)
[2020-01-02] MEDS ORDERED: Nursing to Pharmacy Communication SCH (05:45)
[2020-01-02] MEDS: LEVOTHYROXINE SODIUM 200 MCG TABLET PO SCH (06:06)
[2020-01-02] MEDS: LEVOTHYROXINE SODIUM 75 MCG TABLET PO SCH (06:06)
[2020-01-02] MEDS: PIPERACILLIN/TAZOBACTAM 4.5 GM in DEXTROSE 5% 100 ML IV SCH ×3 (06:06→23:19)
[2020-01-02] MEDS: INSULIN ASPART 100 UNITS/ML 3 ML PEN SC SCH ×4 (06:06→23:20)
[2020-01-02 06:49] LABS: Basophils # (auto) 0.01 K/uL (0-0.2); Basophils % (auto) 0.1 %; Eosinophils # (auto) 0.14 K/uL (0-0.5); Hematocrit (blood only) 33.8 % (37-47); Hemoglobin 10.6 g/dL (12.0-16.0); Immature Granulocytes # (auto) 0.03 K/uL (0.00-0.02); Immature Granulocytes % (auto) 0.2 %; Lymphocytes % (auto) 7.8 %; Mean Corpuscular Hemoglobin 26.3 pg (25-34); Mean Corpuscular Hgb Conc 31.4 g/dL (32-36); Mean Corpuscular Volume 83.9 fL (80-100); Mean Platelet Volume 9.4 fL (7.4-10.4); Monocytes # (auto) 0.85 K/uL (0.11-0.59); Neutrophils # (auto) 11.97 K/uL (1.4-6.5); Neutrophils % (auto) 84.9 %; Platelet Count 512 K/uL (130-400); RDW Coefficient of Variation 16.8 % (11.5-14.5); RDW Standard Deviation 51.5 fL (36.4-46.3); Red Blood Count 4.03 M/uL (4.2-5.4)
[2020-01-02 07:02] LABS: INR 4.8 (0.9-1.1); Prothrombin Time 46.1 Seconds (9.0-12.0)
[2020-01-02 07:15] LABS: BUN Creatinine Ratio 26.5 (10-20); Calcium 9.9 mg/dl (8.5-10.1); Creatinine Clr Calc Pharmacy 31.2 ml/min; Est GFR (African American) 23.2; Potassium 3.9 mmol/L (3.5-5.1)
[2020-01-02] MEDS: FUROSEMIDE 60 MG in SYRINGE 0 ML IV SCH ×2 (08:34→17:57)
[2020-01-02] MEDS: PANTOprazole 40 MG TAB PO SCH (08:34)
[2020-01-02] MEDS: ESCITALOPRAM OXALATE 10 MG TAB PO SCH (08:34)
[2020-01-02] MEDS: LABETALOL HCL 300 MG TAB PO SCH ×2 (08:34→21:15)
[2020-01-02] MEDS: allopurinoL 100 MG TAB PO SCH (08:34)
[2020-01-02] MEDS: DICLOFENAC SOD 1% GEL 100 GM TUBE EXT SCH ×2 (08:34→21:15)
[2020-01-02] MEDS: POTASSIUM CHLORIDE 20 MEQ TABCR PO SCH ×3 (08:35→17:57)
[2020-01-02] MEDS: FERROUS SULFATE 325 MG TAB PO SCH (08:35)
[2020-01-02] MEDS: FLUTICASONE/VILANTEROL 200/25MCG 14 PUFFS/INHALER INH SCH (08:36)
[2020-01-02] MEDS: INSULIN GLARGINE SOLOSTAR 100 UNITS/ML 3 ML PEN SC SCH (08:37)
[2020-01-02] MEDS: POLYETHYLENE (MIRALAX) 17 GM PACK PO SCH (08:38)
[2020-01-02] MEDS: SIMETHICONE 80 MG CHEW PO PRN (09:11)
--- NOTE | 2020-01-02 11:02 | Hospitalist Progress Note ---
Date of Service January 02, 2020 Assessment & Plan (1) Cellulitis: (1) Cellulitis: Patient is a 74 year old female w/ past medical hx that includes DM II with CKD, asthma, heart failure, and peripheral vascular disease admitted for bilateral LE cellulitis and edema with nonhealing ulcers failed outpatient therapy. Bilateral lower extremity cellulitis with underlying venous stasis - wound cultures show Pseudomonas aeruginosa that is susceptible to Zosyn. ? nosocomial - Blood cultures ng at 48 hours - being followed by wound care, per their photos BLE edema has not improved - Continue IV Zosyn. home on ?quinolone. - External leg compression with daily wraps for venous stasis, continue upon d/c Ileus - had received ~2-3 doses of IV morphine over the 3 of the 4 previous days -discontinued IV morphine PRNs yesterday. - Did have bowel movement this am. Abdomen still distended - Repeat KUB today - Consider Relistor vs NG tube placement depending on today's KUB and continued nausea - NPO - Zofran PRN for continued nausea Concern of aspiration - NPO - consult speech therapy SONIA on CKD 4 - Creatinine 2.33 (baseline is 1.7) - Per Nephro consult: - continue Furosemide 60 mg IV BID - Avoid overdiuresis - likely secondary to decreased renal perfusion - Monitor renal function Acute exacerbation of HFpEF with underlying right heart dysfunction - Patient has hx of heart failure with preserved EF, being managed with bumetanide 4 mg BID at home - Patient reports that she has not been taking her diuretic as instructed recently, which may have triggered the BLE edema - Urine output in am about 1100 mL. I/O Balance is -541mL. Dyspnea at rest - improved, patient reports that she has not always been using nasal cannula - CXR consistent mild congestive heart failure - likely secondary to fluid overload secondary to heart failure and recent lapse in diuretic therapy - wean off oxygen Persistent Asthma - Continue duonebs PRN - No wheezing today, clinically improved - Continue daily Breo Ellipta. Type II DM - Pharmacy managing. basal doses + SSI HTN - Continue home labetalol 600mg BID SHELIA - Continue to use CPAP Normocytic Anemia - Hgb: 10.4, Hct 34.6%, MCV 84.4 - likely anemia of chronic disease secondary to CKD - CBC daily Hypothyroidism - continue home levothyroxine 200mcg daily OA bilateral knees - Continue diclofenac gel BID to affected areas - Ambulate to chair daily GERD - Patient on omeprazole 20mg daily at home - While inpatient- pantoprazole 40mg daily Hyperlipidemia - Continue home simvastatin 20mg daily History of anxiety disorder - Anxiety improving with improving respiratory status - Continue home escitalopram Code Status: full FEN/GI: Heart Healthy diet DVT ppx: Continue home warfarin dosing Dispo: Med/Surg floor. COVID test ordered for possible SNF placement. (2) 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, with long- term current use of insulin: (3) Obstructive sleep apnea syndrome: (4) Asthma: (5) CHF (congestive heart failure): (6) Hypokalemia: (7) Chronic GERD: (8) Hyperlipidemia: (9) Anemia: (10) Dyspnea: (2) 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, with long- term current use of insulin: (3) Obstructive sleep apnea syndrome: (4) Asthma: (5) CHF (congestive heart failure): (6) Hypokalemia: (7) Chronic GERD: (8) Hyperlipidemia: (9) Anemia: (10) Dyspnea: Admission and Anticipated Discharge Date Admission Date: December 28, 2019 Supervising Physician Co-Signing Physician Notes Resident Physician Supervision Note: I independently interviewed and examined the patient and verified the johansen history and physical, reviewed labs and image studies, discussed the case with the resident Dr. Green and agree with the findings and care plan. Subjective Mrs. Cisneors c/o continued nausea this morning. She also has a cough that seems to occur when she attempts to drink fluids--her nurse reported that it happened with water sips while she was taking her medication as well. No vomiting, no chest pain, no abdominal pain. Her belly continues to feel bigger than normal. All other ROS negative. Review of Systems Review of Systems: Constitutional: Denies fever, chills, ENT: Denies ear pain Cardiovascular: Denies Chest pain, Respiratory: Denies shortness of Gastrointestinal: Denies vomiting, diarrhea Genitourinary: Denies urinary symptoms including dysuria Physical Exam Constitutional: WD/WN, vitals as above + obese Respiratory: Auscultation: + wheezes Cardiovascular: RRR, no murmur, no edema Gastrointestinal (Abdomen): Inspection/Auscultation: + abdomen distended and normal bowel sounds nontender Musculoskeletal: Clean, dry dressings in place. Changed on 01/01 per writing on dressings. Skin: no rashes, warm and dry Psychiatric: A+Ox3, euthymic affect Results & Data Results & Data ([facility]) Vital Signs (Past 12 Hours) Vital Signs Temp Pulse Pulse Resp BP Pulse Ox 01/02/20 08:02 72 01/02/20 07:53 36.7 C 72 18 169/74 H 90 01/02/20 04:32 77 20 94 01/02/20 03:16 37.0 C 66 22 157/82 H 95 01/01/20 23:30 37.2 C 71 22 144/76 H 95 01/01/20 23:06 73 Resident Activity Tracking Resident Involvement: Resident Care Provided Care Provided: Adult Hospital Medicine (1) CHF (congestive heart failure) Heart failure chronicity: chronic Heart failure type: diastolic Qualified Code(s): I50.32 - Chronic diastolic (congestive) heart failure
[2020-01-02] MEDS: ONDANSETRON INJ 2 MG/ML 2 ML VIAL IV PRN (12:00)
--- NOTE | 2020-01-02 12:00 | Nephrology Progress Note ---
Date of Service January 02, 2020 Assessment & Plan (1) Acute kidney injury: Terrie has stage III CKD with baseline creatinine around 1.7-2, admitted to the hospital with volume overload and congestive heart failure as she seems to have stopped her home diuretics for few days prior to admission. On admission he was found to have AK I and volume overload, started back on IV diuretics. Creatinine has been staying relatively stable around 2.3-2.4, electrolyte acceptable. Also found to have right leg cellulitis with Pseudomonas aeruginosa growing. Blood culture negative. Has chronic anemia with iron deficiency. Hemoglobin has been relatively stable. She continues to have significant pulmonary edema although seems to be responding to current dose of IV diuretic with slightly net negative. Renal function and electrolyte has been relatively stable. --would continue on Lasix 60 milligram IV twice a day, aim for net negative around 0.5-1 liter per day, if needed okay to increase Lasix to 80 milligram twice a day. Need to monitor volume status, renal function electrolyte closely. Risk for progressive worsening of renal function and azotemia with high dose of diuretics. --start on IV Venofer --left arm nephrology precaution Will follow (2) Chronic kidney disease: (3) CHF (congestive heart failure): (4) Anemia of chronic disease: Admission and Anticipated Discharge Date Admission Date: December 28, 2019 Subjective Terrie was seen and examined in her room this morning. Her breathing is slightly better compared to admission although she is still seem to be having some difficulty. Has been on IV diuretics with net negative more than 500 mL. Blood pressure stable. Renal function has been relatively stable without much change, electrolyte acceptable. Review of Systems Review of Systems: All systems reviewed & are unremarkable except as noted in HPI & below Physical Exam Constitutional: well developed and well nourished; no acute distress Respiratory: + respiratory distress Auscultation: + crackles and + wheezes Cardiovascular: RRR, no murmur, no edema Neurologic: moves all extremities and awake; not confused Psychiatric: A+Ox3, euthymic affect Results & Data ([facility]) Vital Signs (Past 12 Hours) Vital Signs Temp Pulse Pulse Resp BP Pulse Ox 01/02/20 11:38 36.6 C 71 18 132/73 91 01/02/20 08:02 72 01/02/20 07:53 36.7 C 72 18 169/74 H 90 01/02/20 04:32 77 20 94 01/02/20 03:16 37.0 C 66 22 157/82 H 95 PG Care Time/CCT Total # of Minutes Spent Total Time Spent with Patient: Total time spent is greater than 50% in coordination of care (as documented) at patient's floor/unit and/or counseling patient: Coding Level of Care Code 10215 Subseq Hosp Care Lvl 3 Diagnoses Acute kidney injury N17.9 Chronic kidney disease N18.9 CHF (congestive heart failure) I50.32 Heart failure type: diastolic Heart failure chronicity: chronic Anemia of chronic disease D63.8 (1) CHF (congestive heart failure) Heart failure type: diastolic Heart failure chronicity: chronic Qualified Code(s): I50.32 - Chronic diastolic (congestive) heart failure
[2020-01-02] MEDS ORDERED: IRON SUCROSE 200 MG in 0.9 % SODIUM CHLORIDE 100 ML IV ONE (13:00)
--- NOTE | 2020-01-02 13:17 | XRay Report ---
XR KUB/Abdomen 1 view CLINICAL HISTORY: Generalized ileus pain COMPARISON STUDY: 01/01/2020. 03/01/2018. FINDINGS: Slight increase in distention of the sigmoid colon. Mild reactive bowel ileus. No secondary signs of free air. IMPRESSION: Slightly progressive sigmoid distention. Stable generalized ileus. ACT 112: Negative or not required by law. The above report was generated using voice recognition software. It may contain grammatical, syntax or spelling errors. Electronically signed by: Bharat Kitchen M.D. 01/02/2020 1:16 PM
[2020-01-02] MEDS ORDERED: LACTATED RINGER'S 1,000 ML IV SCH (17:30)
[2020-01-02] MEDS ORDERED: METHYLNALTREXONE BROMIDE 12 MG/0.6 ML VIAL SQ ONE (19:00)
[2020-01-02] MEDS ORDERED: INSULIN GLARGINE SOLOSTAR 100 UNITS/ML 3 ML PEN SC SCH ×2 (21:00)
[2020-01-02] MEDS: ASPIRIN 81 MG ECTAB PO SCH (21:15)
[2020-01-02] MEDS: ROPINIROLE HCL 1 MG TABLET PO SCH (21:15)
[2020-01-02] MEDS: SIMVASTATIN 20 MG TAB PO SCH (21:15)
[2020-01-03] MEDS: LEVOTHYROXINE SODIUM 200 MCG TABLET PO SCH (05:51)
[2020-01-03] MEDS: LEVOTHYROXINE SODIUM 75 MCG TABLET PO SCH (05:51)
[2020-01-03] MEDS: INSULIN ASPART 100 UNITS/ML 3 ML PEN SC SCH ×4 (05:52→23:41)
--- NOTE | 2020-01-03 07:02 | Hospitalist Progress Note ---
Date of Service January 03, 2020 Assessment & Plan (1) Cellulitis: Ruth Cisneros is a 74 year old female with h/o DM II with CKD, asthma, heart failure, and peripheral vascular disease admitted for bilateral LE cellulitis and edema with nonhealing ulcers that failed outpatient therapy. Bilateral lower extremity cellulitis with underlying venous stasis - wound cultures show Pseudomonas aeruginosa that is susceptible to Zosyn. ? nosocomial - Blood cultures ng at 48 hours - being followed by wound care, per their photos BLE edema has not improved - Continue IV Zosyn. home on ?quinolone. - External leg compression with daily wraps for venous stasis, continue upon d/c Ileus - had received ~2-3 doses of IV morphine over the 3 of the 4 previous days -discontinued IV morphine PRNs yesterday. - Did have two bowel movements on 01/01. Abdomen still severely distended with hyperactive bowel sounds - CT abdomen/pelvis w/ PO/IV contrast ordered today - results showed small bowel and colonic dilatation with air fluid levels and a transition zone at the splenic flexure with no visualized obstructing mass - NG tube to low suction - NPO - Zofran PRN for continued nausea - general surgery consulted. - consider colonoscopy tomorrow - reverse INR - vitamin K 5mgs Supratherapeutic INR - hold warfarin. - vitamin K today for reversing for possible colonoscopy in am. Concern of aspiration - NPO - consult speech therapy SONIA on CKD 4 - Creatinine 2.33 (baseline is 1.7) - Per Nephro consult: - increase Lasix to 80 milligram IV twice a day, aim for net negative around 0.5-1 liter per day - consider scheduled dose of bronchodilator instead of p.r.n. - continue on IV Venofer - Monitor renal function - Potassium 3.5 today; KCl 40 mEq IV today - Magnesium 2.4 today, will continue to trend Acute exacerbation of HFpEF with underlying right heart dysfunction - Patient has hx of heart failure with preserved EF, being managed with bumetanide 4 mg BID at home - Patient reports that she has not been taking her diuretic as instructed recently, which may have triggered the BLE edema - Urine output in am about 1100 mL. I/O Balance is -541mL. Dyspnea at rest - improved, patient reports that she has not always been using nasal cannula - CXR consistent mild congestive heart failure - likely due to fluid overload secondary to heart failure and recent lapse in diuretic therapy - wean off oxygen as tolerated Persistent Asthma - Continue duonebs PRN - No wheezing today, clinically improved - Continue daily Breo Ellipta. Type II DM - Pharmacy managing. basal doses + SSI HTN - Continue home labetalol 600mg BID SHELIA - Patient uses home CPAP but has declined use in the hospital - Counseled today on the importance of continuing CPAP while hospitalized Normocytic Anemia - Hgb: 10.6, Hct 35.3%, MCV 84.4 - likely anemia of chronic disease secondary to CKD - CBC daily Hypothyroidism - continue home levothyroxine 200mcg daily OA bilateral knees - Continue diclofenac gel BID to affected areas - Ambulate to chair daily GERD - Patient on omeprazole 20mg daily at home - While inpatient- pantoprazole 40mg daily Hyperlipidemia - Continue home simvastatin 20mg daily History of anxiety disorder - Anxiety improves with improving respiratory status - Continue home escitalopram Code Status: full FEN/GI: Heart Healthy diet DVT ppx: Warfarin held today for supratherapeutic INR 4.0; will continue to trend PT/INR Dispo: Med/Surg floor. COVID test ordered for possible SNF placement. Present on Admission?: Yes (2) 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, with long- term current use of insulin: Present on Admission?: Yes (3) Obstructive sleep apnea syndrome: Present on Admission?: Yes (4) Asthma: Present on Admission?: Yes (5) CHF (congestive heart failure): Present on Admission?: Yes (6) Hypokalemia: Present on Admission?: Yes (7) Chronic GERD: Present on Admission?: Yes (8) Hyperlipidemia: Present on Admission?: Yes (9) Anemia: Present on Admission?: Yes (10) Dyspnea: Present on Admission?: Yes Admission and Anticipated Discharge Date Admission Date: December 28, 2019 Supervising Physician Co-Signing Physician Notes Resident Physician Supervision Note: I independently interviewed and examined the patient and verified the johansen history and physical, reviewed labs and image studies, discussed the case with the resident Dr. Arcos and agree with the findings and care plan. Subjective Ruth Cisneros is a 74 year old female with h/o DM II with CKD, asthma, heart failure, and peripheral vascular disease admitted for bilateral LE cellulitis and edema with nonhealing ulcers that failed outpatient therapy. The patient is still having symptoms of new-onset ileus: continues to report severe abdominal distension, despite Realistor x1 yesterday. She does continue to report passing flatus and loose incontinent stools (x2 yesterday). She developed signs of volume overload last night (shortness of breath and lung crackles on exam) and IVF were subsequently held. Remains on Lasix 60 mg IV BID. The patient uses home CPAP but does not want to use it while in the hospital. Review of Systems Constitutional: no fever and no chills Respiratory: + dyspnea and + wheezing; no cough Cardiovascular: no chest pain and no palpitations Gastrointestinal: + bloating and + diarrhea/loose stools; no abdominal pain, no nausea, no vomiting and no change in stools Genitourinary: no dysuria Physical Exam Constitutional: WD/WN, vitals as above + obese Respiratory: no respiratory distress and no labored breathing Auscultation: no crackles and no wheezes Cardiovascular: Rate/Rhythm: regular rate and regular rhythm Heart Sounds: normal S1 and normal S2; no murmur Vessels: normal peripheral pulses Extremities: + edema (bilateral lower extremity non-pitting edema) distant heart sounds secondary to body habitus Gastrointestinal (Abdomen): severely distended, non-tender, hyperactive BSx4 Skin: bilateral LE dressings c/d/i Psychiatric: A+Ox3, euthymic affect Lymphatic: no cervical lymphadenopathy Results & Data Results & Data ([facility]) Vital Signs (Past 12 Hours) Vital Signs Temp Pulse Pulse Resp BP BP Pulse Ox 01/03/20 03:09 36.8 C 73 21 136/67 92 01/03/20 01:04 73 01/02/20 23:24 36.7 C 69 19 137/68 90 01/02/20 19:21 36.6 C 88 19 131/71 90 CBC w Diff Results Results CBC w Diff: RBC 4.23 M/uL (4.2-5.4) 01/04/20 WBC 10.73 K/uL (4.8-10.8) 01/04/20 Hgb 10.9 g/dL (12.0-16.0) L 01/04/20 Hct 35.3 % (37-47) L 01/04/20 MCV 83.5 fL (80-100) 01/04/20 MCH 25.8 pg (25-34) 01/04/20 MCHC 30.9 g/dL (32-36) L 01/04/20 RDW Standard Deviation 51.5 fL (36.4-46.3) H 01/04/20 RDW Coefficient of Variation 16.9 % (11.5-14.5) H 01/04/20 Plt Count 537 K/uL (130-400) H 01/04/20 MPV 9.6 fL (7.4-10.4) 01/04/20 Nucleated Red Blood Cells % (auto) 0.2 % 02/26/18 Nucleated RBC Absolute Count (auto) 0.02 K/uL (0-0) H 02/26/18 Neutrophils (%) (Auto) 83.0 % 01/03/20 Lymphocytes (%) (Auto) 8.2 % 01/03/20 Monocytes # (Auto) 0.98 K/uL (0.11-0.59) H 01/03/20 Eosinophils # (Auto) 0.18 K/uL (0-0.5) 01/03/20 Immature Granulocyte % (Auto) 0.2 % 01/03/20 Neutrophils # (Auto) 11.22 K/uL (1.4-6.5) H 01/03/20 Lymphocytes # (Auto) 1.11 K/uL (1.2-3.4) L 01/03/20 Monocytes # (Auto) 0.98 K/uL (0.11-0.59) H 01/03/20 Eosinophils # (Auto) 0.18 K/uL (0-0.5) 01/03/20 Basophils # (Auto) 0.02 K/uL (0-0.2) 01/03/20 Immature Granulocyte # (Auto) 0.03 K/uL (0.00-0.02) H 01/03/20 Anisocytosis Present 03/24/18 Chemistry (BMP) Results BMP Results: Sodium 145 mmol/L (136-145) 01/04/20 Potassium 3.3 mmol/L (3.5-5.1) L 01/04/20 Chloride 109 mmol/L (98-107) H 01/04/20 BUN 73 mg/dl (7-18) H 01/04/20 Creatinine 2.55 mg/dl (0.6-1.2) H 01/04/20 Glucose 79 mg/dl (70-99) 01/04/20 Coag Studies Results Coagulation Results: PT 39.2 Seconds (9.0-12.0) H 01/03/20 PTT 43.9 Seconds (21.0-31.0) H 07/27/19 INR 4.0 (0.9-1.1) H 01/03/20 Resident Activity Tracking Resident Involvement: Resident Care Provided Care Provided: Adult Hospital Medicine (1) CHF (congestive heart failure) Heart failure chronicity: chronic Heart failure type: diastolic Qualified Code(s): I50.32 - Chronic diastolic (congestive) heart failure
[2020-01-03 07:27] LABS: Basophils # (auto) 0.02 K/uL (0-0.2); Basophils % (auto) 0.1 %; Eosinophils # (auto) 0.18 K/uL (0-0.5); Eosinophils % (auto) 1.3 %; Hematocrit (blood only) 35.3 % (37-47); Hemoglobin 10.6 g/dL (12.0-16.0); Immature Granulocytes # (auto) 0.03 K/uL (0.00-0.02); Immature Granulocytes % (auto) 0.2 %; Lymphocytes # (auto) 1.11 K/uL (1.2-3.4); Lymphocytes % (auto) 8.2 %; Mean Corpuscular Hemoglobin 25.4 pg (25-34); Mean Corpuscular Volume 84.4 fL (80-100); Mean Platelet Volume 9.4 fL (7.4-10.4); Monocytes # (auto) 0.98 K/uL (0.11-0.59); Monocytes % (auto) 7.2 %; Neutrophils # (auto) 11.22 K/uL (1.4-6.5); Platelet Count 534 K/uL (130-400); RDW Coefficient of Variation 16.9 % (11.5-14.5); RDW Standard Deviation 52.3 fL (36.4-46.3); Red Blood Count 4.18 M/uL (4.2-5.4); White Blood Count 13.54 K/uL (4.8-10.8)
[2020-01-03 07:45] LABS: Prothrombin Time 39.2 Seconds (9.0-12.0)
[2020-01-03 07:58] LABS: Calcium 9.7 mg/dl (8.5-10.1); Creatinine Clr Calc Pharmacy 28.8 ml/min; Est GFR (African American) 21.1; Est GFR (Non-African American) 18.2; Potassium 3.5 mmol/L (3.5-5.1)
[2020-01-03] MEDS: PIPERACILLIN/TAZOBACTAM 4.5 GM in DEXTROSE 5% 100 ML IV SCH ×3 (08:32→23:26)
[2020-01-03] MEDS: ESCITALOPRAM OXALATE 10 MG TAB PO SCH (08:32)
[2020-01-03] MEDS: IRON SUCROSE 200 MG in 0.9 % SODIUM CHLORIDE 100 ML IV SCH (08:32)
[2020-01-03] MEDS: FUROSEMIDE 60 MG in SYRINGE 0 ML IV SCH (08:32)
[2020-01-03] MEDS: allopurinoL 100 MG TAB PO SCH (08:32)
[2020-01-03] MEDS: LABETALOL HCL 300 MG TAB PO SCH ×2 (08:32→20:46)
[2020-01-03] MEDS: POTASSIUM CHLORIDE 20 MEQ TABCR PO SCH ×2 (08:32→16:13)
[2020-01-03] MEDS: PANTOprazole 40 MG TAB PO SCH (08:33)
[2020-01-03] MEDS: POLYETHYLENE (MIRALAX) 17 GM PACK PO SCH (08:33)
[2020-01-03] MEDS: DICLOFENAC SOD 1% GEL 100 GM TUBE EXT SCH ×2 (08:33→20:46)
[2020-01-03] MEDS: FLUTICASONE/VILANTEROL 200/25MCG 14 PUFFS/INHALER INH SCH (08:34)
[2020-01-03] MEDS: FERROUS SULFATE 325 MG TAB PO SCH (08:34)
[2020-01-03] MEDS ORDERED: INSULIN GLARGINE SOLOSTAR 100 UNITS/ML 3 ML PEN SC SCH ×2 (09:00→21:00)
--- NOTE | 2020-01-03 11:22 | Nephrology Progress Note ---
Date of Service January 03, 2020 Assessment & Plan (1) Acute kidney injury: Terrie has stage III CKD with baseline creatinine around 1.7-2, admitted to the hospital with volume overload and congestive heart failure as she seems to have stopped her home diuretics for few days prior to admission. On admission he was found to have AK I and volume overload, started back on IV diuretics. Creatinine has been staying relatively stable around 2.3-2.4, electrolyte acceptable. Also found to have right leg cellulitis with Pseudomonas aeruginosa growing. Blood culture negative. Has chronic anemia with iron deficiency. Hemoglobin has been relatively stable. She continues to have significant pulmonary edema, net positive over last 24 hour with current dose of diuretics and renal function slightly worsened. -- increase Lasix to 80 milligram IV twice a day, aim for net negative around 0.5-1 liter per day, may need even higher dose of diuretics. Need to monitor volume status, renal function electrolyte closely. Risk for progressive worsening of renal function and azotemia remains as she is requiring higher dose of diuretics. -- consider scheduled dose of bronchodilator instead of p.r.n. -- continue on IV Venofer --left arm nephrology precaution Will follow Admission and Anticipated Discharge Date Admission Date: December 28, 2019 Subjective Terrie was seen and examined in her room this morning. she continues to have shortness of breath and wheezing. urine output slightly decreased with net positive in last 24 hours. Blood pressure stable. Renal function slightly worsened, electrolyte acceptable. Review of Systems Review of Systems: All systems reviewed & are unremarkable except as noted in HPI & below Physical Exam Constitutional: well developed and well nourished; no acute distress Respiratory: + respiratory distress and able to speak in complete sentences Auscultation: + crackles and + wheezes Cardiovascular: RRR, no murmur, no edema Neurologic: moves all extremities and awake; not confused Psychiatric: A+Ox3, euthymic affect Results & Data ([facility]) Vital Signs (Past 12 Hours) Vital Signs Temp Pulse Pulse Resp BP Pulse Ox 01/03/20 07:49 76 01/03/20 07:18 37.0 C 83 18 152/71 H 92 01/03/20 03:09 36.8 C 73 21 136/67 92 01/03/20 01:04 73 01/02/20 23:24 36.7 C 69 19 137/68 90 PG Care Time/CCT Total # of Minutes Spent Total Time Spent with Patient: Total time spent is greater than 50% in coordination of care (as documented) at patient's floor/unit and/or counseling patient: Coding Level of Care Code 64207 Subseq Hosp Care Lvl 3 Diagnoses Acute kidney injury N17.9
[2020-01-03] MEDS: POTASSIUM CHLORIDE / WTR 10 MEQ/100 ML PLCT IV SCH ×4 (12:00→16:11)
[2020-01-03] MEDS: ONDANSETRON INJ 2 MG/ML 2 ML VIAL IV PRN (12:10)
[2020-01-03 12:33] LABS: Magnesium 2.4 mg/dl (1.8-2.4)
--- NOTE | 2020-01-03 13:46 | Pharmacy Report ---
Pharmacy Glycemic Short Note 2 - Date of Service January 03, 2020 - Glycemic Short BSG Results (Last 24 hours): 01/02/20 01/02/20 01/02/20 16:46 20:09 23:18 POC Glucose 116 H 117 H 148 H Fasting Glucose 01/03/20 01/03/20 01/03/20 05:50 07:04 11:04 POC Glucose 160 H 133 H Fasting Glucose 122 H OUTPATIENT ANTIDIABETIC REGIMEN: * Glargine 100units Q PM * Novolog 20 units w/ meals + sliding scale, up to 80 units per day * A1c = 8.3% 12/30/2019 ASSESSMENT: 01/02: * Patient received 129 units of insulin yesterday: * 105 units of basal * 24 units of bolus (indicates correction only - pt remains NPO) * BSGs ranged from 116 - 244 mg/dL * Fasting BSG is above goal. Will increase Lantus by ~15%. * Novolog correction factor was tightened from 10 to 8 yesterday. Improvement in post prandials noted. Continue same for now. 12/31 * BSG ranged from 147- 224 yesterday, received 134 units of insulin * Fasting this morning 186, as this is above goal will adjust lantus slightly * Continuing current novolog parameters as prandial BSGs improved. 12/30 * Patient's BSGs improving, received 161 units yesterday, 105 units of basal, 56 units of basal * Fasting this morning 176, slightly increased basal to up to 55 units BID * Will continue current novolog parameters as patient's BSG have improved with this, will tighten if BSGs remain above goal range 12/28 * Type 2 diabetic admitted yesterday due to worsening cellulitis of lower extremities and non-healing ulcerations * Patient has been followed by glycemic control service several times in the past year * Will base patient's insulin needs upon an anticipated total daily insulin requirement of ~160 units while hospitalized (while tolerating a diet) * Will redistribute basal/bolus regimen to give a 50:50 balance. * Of note, on prior admissions, pt was frequently given steroid therapy which she is not currently receiving. In the past she had required carb ratios of 4-5 however given lack of steroid therapy this admission will use lesser doses. PLAN FOR INPATIENT GLYCEMIC CONTROL: * Basal insulin- increase * Lantus 60 units SQ BID * Bolus insulin * NovoLog per scale ACHS * Goal Range: Low 110 mg/dL - High 140 mg/dL * Correction Factor: 8 mg/dL/unit * Nutritional / Prandial insulin per carb ratio of 1 unit per 4 grams CHO consumed PLAN FOR DISCHARGE: * A1c 8.3%, slightly above goal * F/u with outpatient provider for insulin adjustments as needed
--- NOTE | 2020-01-03 13:46 | CT Scan Report ---
CT abd pelvis oral con only CLINICAL HISTORY: ileus abdominal pain COMPARISON STUDY: 07/29/2019 FINDINGS: The patient was scanned following administration of dilute oral contrast. No intravenous contrast was administered due to the patient's azotemia an estimated GFR 18. A dose reduction technique was utili zed according to the principles of ALARA. Visualized portions lung bases reveal right lower lobe atelectasis/consolidation with possible right hilar adenopathy. There is a small hiatal hernia. The heart is enlarged. There is hepatic steatosis. The liver is enlarged measuring 24 cm.. No focal hepatic masses are visua lized in this noncontrast study. The gallbladder appears surgically absent. No splenic masses are visualized. No pancreatic masses are visualized. No adrenal masses are visualized. There is no hydronephrosis. No renal, ureteral, or bladder calculi are visualized. There is small bowel and colonic dilatation with multiple air-fluid levels to the level of the spleni c flexure. A discrete obstructing mass is not visualized on CT scanning. The findings are slightly mo re pronounced than on the preceding examination. The uterus is surgically absent. There is no evidence of pathologic adenopathy. There is no evidence of abdominal aortic aneurysm. There is no free intraperitoneal air. There is no significant ascites. No destructive skeletal lesions are visualized IMPRESSION: 1. Right lower lobe atelectasis/consolidation with mild hilar prominence 2. Hepatic steatosis and hepatomegaly 3. Persistent and slightly progressive small bowel and colonic dilatation with air fluid levels an a transition zone located at the level of the splenic flexure. An obstructing mass is not visualized on CT scanning. This finding has been described previously with endoscopic follow-up recommended. If th is has not been previously performed, this should be considered in follow-up. ACT 112: Negative or not required by law. Electronically signed by: Simon Walter M.D. 01/03/2020 1:45 PM
[2020-01-03] MEDS ORDERED: LACTATED RINGER'S 1,000 ML IV SCH (16:30)
[2020-01-03] MEDS: ALBUT/IPRATROP 3MG/0.5MG NEB 3 ML VIAL NEB PRN (16:30)
[2020-01-03] MEDS ORDERED: PHYTONADIONE 5 MG in SODIUM CHLORIDE 0.9% 50 ML IV ONE (16:45)
--- NOTE | 2020-01-03 17:14 | Surgery Consultation ---
Date of Consultation January 03, 2020 Assessment & Plan (1) Abdominal pain: This patient has dilated colon and small bowel. There seems to be a transition point by radiologic criteria at the splenic flexure. She had a colonoscopy 2 years ago that was apparently normal. The etiology would be unclear. It would most likely not be due to adhesions. Consider enemas to clear her rectum. GI has been consulted for evaluation. She would be a very poor candidate for surgical intervention considering her multiple comorbid conditions and especially her progressively increasing creatinine, diabetes, INR of 4.0 despite not having warfarin for at least 2 to 3 days. She also has congestive heart failure with volume overload and escalating needs for diuretics. Nephrology has requested precautions with the left arm presumably for possible need for dialysis. Does not have peritonitis and there is no evidence for immediate surgical intervention however her colon is dilated. Await GI evaluation. With her escalating comorbid conditions may wish to consider tertiary care center. History of Present Illness Requesting Physician: Dotty Santos MD Attending Physician: Dotty Santos MD History of Present Illness I have been asked by Dr. Santos to see this 74-year-old female who presented to the emergency room with progressive cellulitis of her legs. She has venous stasis and morbid obesity contributing to that. Cultures have demonstrated Pseudomonas. We have been asked to evaluate her abdomen. Since admission she has developed some abdominal distention with pain. The pain is diffuse. There is no one area that is more than any other. She had 2 bowel movements yesterday but they were not sufficient to relieve her discomfort. There was no melena or hematochezia. She has not had dysuria or hematuria. She been having some mild abdominal discomfort for about 2 weeks but it was intermittent. This is now more continuous. She developed nausea since being in the hospital. She has had dry heaves but no vomiting. She underwent a CT scan of the abdomen and pelvis that showed dilated colon and small bowel with a possible transition point in the splenic flexure. She had a colonoscopy 2 years ago and reported that she was told it was normal. She has only had 2 previous abdominal surgeries. She had a open cholecystectomy many years ago and a hysterectomy with bilateral salpingo-oophorectomy. She has an extensive past medical history that includes diabetes with neuropathy, COPD, congestive heart failure, mitral regurgitation, DVT with pulmonary emboli and is on warfarin therapy, chronic kidney insufficiency with now acute insufficiency. She is having shortness of breath with minimal activity Allergies Allergy/AdvReac Type Severity Reaction Status Date / Time ibuprofen Allergy Intermediate HIVES Verified 12/28/19 19:56 lisinopril AdvReac Mild COUGH Verified 12/28/19 19:56 pramipexole AdvReac Unknown Verified 12/28/19 19:56 zolpidem AdvReac drowsinesss Verified 12/28/19 19:56 Home Medications Home Medications Medication Instructions Recorded Confirmed Type aspirin [Aspirin Low Dose] 81 mg PO HS #0 07/25/17 12/28/19 History cholecalciferol (vitamin D3) 3,000 unit PO QAM #0 tab 07/25/17 12/28/19 History [Vitamin D3] cyanocobalamin (vitamin B-12) 1,000 mcg PO QAM #0 tab 07/25/17 12/28/19 History [Vitamin B-12] omeprazole 20 mg PO QAM #0 cap 07/25/17 12/28/19 History levothyroxine 200 mcg tablet 200 mcg PO QAM 03/09/19 12/28/19 History melatonin 10 mg capsule 10 mg PO HS PRN 03/09/19 12/28/19 History acetaminophen 500 mg capsule 500 mg PO Q6H PRN 04/06/19 12/28/19 History albuterol sulfate 90 mcg/actuation 2 puff INHALATION Q4H PRN #18 gm 06/15/19 12/28/19 Rx aerosol inhaler ferrous sulfate 325 mg (65 mg 325 mg PO DAILY 06/15/19 12/28/19 History iron) tablet levalbuterol HCl 0.63 mg/3 mL 0.63 mg INH Q6H PRN #36 ml 06/15/19 12/28/19 Rx solution for nebulization simvastatin 20 mg tablet 20 mg PO PM #90 tab 07/23/19 12/28/19 Rx buspirone 5 mg tablet 5 mg PO BID PRN #30 tab 08/01/19 12/28/19 Rx labetalol 600 mg PO BID #720 tab 08/01/19 12/28/19 Rx warfarin See Rx Instructions PO UD 90 Days 08/01/19 12/28/19 Rx #70 tab levothyroxine 75 mcg tablet 75 mcg PO QAM #90 tab 09/08/19 12/28/19 Rx blood-glucose meter #1 ea 09/29/19 12/28/19 Rx allopurinol 100 mg tablet 100 mg PO DAILY #30 tab 10/08/19 12/28/19 Rx bumetanide 2 mg tablet 4 mg PO .COMPLEX #90 tab 10/12/19 12/28/19 Rx diclofenac sodium 1 % topical gel 2 gm TOP QID #100 gm 10/19/19 12/28/19 Rx escitalopram oxalate 10 mg tablet 10 mg PO DAILY #90 tab 10/19/19 12/28/19 Rx ropinirole 1 mg tablet 1 mg PO HS #90 tab 10/19/19 12/28/19 Rx blood sugar diagnostic See Rx Instructions .ROUTE 11/03/19 12/28/19 Rx .COMPLEX #300 strip cyclobenzaprine 5 mg tablet 5 mg PO HS PRN #30 tab 11/16/19 12/28/19 Rx metolazone 2.5 mg tablet 2.5 mg PO DAILY PRN #15 tab 11/19/19 12/28/19 Rx insulin aspart U-100 100 unit/mL See Rx Instructions SQ .COMPLEX 11/24/19 12/28/19 Rx (3 mL) subcutaneous pen #30 ml fluticasone furoate 200 1 puffs INH DAILY #60 ea 12/03/19 12/28/19 Rx mcg-vilanterol 25 mcg/dose inhalation powder potassium chloride 20 mEq 20 meq PO BID #180 tab 12/14/19 12/28/19 Rx tablet,extended release(part/cryst) hydroxyzine HCl 25 mg tablet 25 mg PO BID PRN #30 tab 12/17/19 12/28/19 Rx insulin glargine 100 unit/mL (3 100 unit SUBCUT QPM 90 Days #90 ml 12/17/19 12/28/19 Rx mL) subcutaneous pen acetic acid 0.25 % irrigation 100 ml IR DAILY 14 Days #1000 ml 12/24/19 12/28/19 Rx solution cefdinir 300 mg capsule 300 mg PO BID 14 Days #28 cap 12/24/19 12/28/19 Rx Patient History Medical History Anemia Arthritis (Acute) CHF (congestive heart failure) (Chronic) Chronic GERD (Chronic) Chronic kidney disease, stage III (moderate) COPD (chronic obstructive pulmonary disease) (Chronic) Depression (Chronic) Diabetes (Resolved) Diabetic neuropathy (Chronic) Health care maintenance Hemorrhoids (Chronic) HTN (hypertension) (Chronic) Hyperlipidemia (Chronic) Hypothyroidism Left bundle branch block (Chronic) Lymphedema (Chronic) Mild mitral stenosis (Chronic) Mitral regurgitation (Chronic) Morbid obesity (Chronic) SHELIA on CPAP Osteopenia (Chronic) Proteus infection (Inactive) Restless leg syndrome (Chronic) Sleep apnea (Inactive) Stage III chronic kidney disease (Chronic) Urinary incontinence (Chronic) Venous insufficiency (Chronic) Vitamin D deficiency Vulvar cyst (Chronic) Vulvovaginitis (Chronic) Surgical History (Updated 01/03/20 @ 16:00 by Bharat Drake MD) H/O hysterectomy with oophorectomy History of cataract surgery History of cholecystectomy Family History Mother Diabetes Colon cancer Lung cancer Father Esophageal cancer Other Hypertension Denies family history of Ovarian cancer Prostate cancer Myocardial infarction Breast cancer Social History Smoking Status: Never smoker Second Hand Exposure: No; Hx Alcohol Use: No Hx Substance Use: No Preferred Language: [place] Communication Ability: Effective Visual Impairment: No Limitations Hearing Ability: Normal 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 Beliefs That Will Affect Care: None marital status: Current Living Situation: Alone Current Living Situation Comment: Duplex Other Information That Helps Us Care for You: No Feels Safe at Home: Yes Safety Concerns: Feels Safe At This Time Seatbelt Use: always Physical Exam Constitutional: + obese; no acute distress Neck: trachea midline Respiratory: Auscultation: + rhonchi (Throughout); no wheezes (End expiratory throughout) Audible wheezing Cardiovascular: Rate/Rhythm: regular rate and regular rhythm Gastrointestinal (Abdomen): Inspection/Auscultation: + abdomen distended and + hypoactive bowel sounds Percussion/Palpation: + abdomen tender (Mild diffuse) Firm but not rigid due to the distention Skin: Multiple ulcerations of the bilateral lower extremities with dressings in place Results & Data Vital Signs (Past 12 Hours) Vital Signs Temp Pulse Pulse Resp BP BP Pulse Ox 01/03/20 16:31 72 20 90 01/03/20 15:35 36.6 C 66 18 142/68 H 90 01/03/20 11:28 36.9 C 64 18 130/64 94 01/03/20 07:49 76 01/03/20 07:18 37.0 C 83 18 152/71 H 92 Laboratory Results 01/03/20 01/03/20 01/03/20 Range/Units 11:04 07:04 07:04 WBC (4.8-10.8) K/uL RBC (4.2-5.4) M/uL Hgb (12.0-16.0) g/dL Hct (37-47) % MCV (80-100) fL MCH (25-34) pg MCHC (32-36) g/dL RDW Std Deviation (36.4-46.3) fL RDW Coeff of Joycelyn (11.5-14.5) % Plt Count (130-400) K/uL MPV (7.4-10.4) fL Immature Gran % (Auto) % Neut % (Auto) % Lymph % (Auto) % Grant % (Auto) % Eos % (Auto) % Baso % (Auto) % Neut # (Auto) (1.4-6.5) K/uL Lymph # (Auto) (1.2-3.4) K/uL Grant # (Auto) (0.11-0.59) K/uL Eos # (Auto) (0-0.5) K/uL Baso # (Auto) (0-0.2) K/uL Immature Gran # (Auto) (0.00-0.02) K/uL PT 39.2 H (9.0-12.0) Seconds INR 4.0 H (0.9-1.1) Sodium (136-145) mmol/L Potassium (3.5-5.1) mmol/L Chloride (98-107) mmol/L Carbon Dioxide (21-32) mmol/L Anion Gap (3-11) BUN (7-18) mg/dl Creatinine (0.6-1.2) mg/dl Est Cr Clr Drug Dosing ml/min Est GFR ( Amer) Est GFR (Non-Af Amer) POC Glucose 133 H (70-99) mg/dl Fasting Glucose (70-99) mg/dl Calcium (8.5-10.1) mg/dl Magnesium 2.4 (1.8-2.4) mg/dl SARS-CoV-2 RNA (RT-PCR) (NotDetected) 01/03/20 01/03/20 01/03/20 Range/Units 07:04 07:04 05:50 WBC 13.54 H (4.8-10.8) K/uL RBC 4.18 L (4.2-5.4) M/uL Hgb 10.6 L (12.0-16.0) g/dL Hct 35.3 L (37-47) % MCV 84.4 (80-100) fL MCH 25.4 (25-34) pg MCHC 30.0 L (32-36) g/dL RDW Std Deviation 52.3 H (36.4-46.3) fL RDW Coeff of Joycelyn 16.9 H (11.5-14.5) % Plt Count 534 H (130-400) K/uL MPV 9.4 (7.4-10.4) fL Immature Gran % (Auto) 0.2 % Neut % (Auto) 83.0 % Lymph % (Auto) 8.2 % Grant % (Auto) 7.2 % Eos % (Auto) 1.3 % Baso % (Auto) 0.1 % Neut # (Auto) 11.22 H (1.4-6.5) K/uL Lymph # (Auto) 1.11 L (1.2-3.4) K/uL Grant # (Auto) 0.98 H (0.11-0.59) K/uL Eos # (Auto) 0.18 (0-0.5) K/uL Baso # (Auto) 0.02 (0-0.2) K/uL Immature Gran # (Auto) 0.03 H (0.00-0.02) K/uL PT (9.0-12.0) Seconds INR (0.9-1.1) Sodium 144 (136-145) mmol/L Potassium 3.5 (3.5-5.1) mmol/L Chloride 109 H (98-107) mmol/L Carbon Dioxide 27 (21-32) mmol/L Anion Gap 8.0 (3-11) BUN 66 H (7-18) mg/dl Creatinine 2.53 H (0.6-1.2) mg/dl Est Cr Clr Drug Dosing 28.8 ml/min Est GFR ( Amer) 21.1 Est GFR (Non-Af Amer) 18.2 POC Glucose 160 H (70-99) mg/dl Fasting Glucose 122 H (70-99) mg/dl Calcium 9.7 (8.5-10.1) mg/dl Magnesium 2.4 (1.8-2.4) mg/dl SARS-CoV-2 RNA (RT-PCR) (NotDetected) 01/02/20 01/02/20 01/01/20 Range/Units 23:18 20:09 14:05 WBC (4.8-10.8) K/uL RBC (4.2-5.4) M/uL Hgb (12.0-16.0) g/dL Hct (37-47) % MCV (80-100) fL MCH (25-34) pg MCHC (32-36) g/dL RDW Std Deviation (36.4-46.3) fL RDW Coeff of Joycelyn (11.5-14.5) % Plt Count (130-400) K/uL MPV (7.4-10.4) fL Immature Gran % (Auto) % Neut % (Auto) % Lymph % (Auto) % Grant % (Auto) % Eos % (Auto) % Baso % (Auto) % Neut # (Auto) (1.4-6.5) K/uL Lymph # (Auto) (1.2-3.4) K/uL Grant # (Auto) (0.11-0.59) K/uL Eos # (Auto) (0-0.5) K/uL Baso # (Auto) (0-0.2) K/uL Immature Gran # (Auto) (0.00-0.02) K/uL PT (9.0-12.0) Seconds INR (0.9-1.1) Sodium (136-145) mmol/L Potassium (3.5-5.1) mmol/L Chloride (98-107) mmol/L Carbon Dioxide (21-32) mmol/L Anion Gap (3-11) BUN (7-18) mg/dl Creatinine (0.6-1.2) mg/dl Est Cr Clr Drug Dosing ml/min Est GFR ( Amer) Est GFR (Non-Af Amer) POC Glucose 148 H 117 H (70-99) mg/dl Fasting Glucose (70-99) mg/dl Calcium (8.5-10.1) mg/dl Magnesium (1.8-2.4) mg/dl SARS-CoV-2 RNA (RT-PCR) Not Detected (NotDetected) Diagnostic Findings CT abd pelvis oral con only CLINICAL HISTORY: ileus abdominal pain COMPARISON STUDY: 07/29/2019 FINDINGS: The patient was scanned following administration of dilute oral contrast. No intravenous contrast was administered due to the patient's azotemia an estimated GFR 18. A dose reduction technique was utilized according to the principles of ALARA. Visualized portions lung bases reveal right lower lobe atelectasis/consolidation with possible right hilar adenopathy. There is a small hiatal hernia. The heart is enlarged. There is hepatic steatosis. The liver is enlarged measuring 24 cm.. No focal hepatic masses are visualized in this noncontrast study. The gallbladder appears surgically absent. No splenic masses are visualized. No pancreatic masses are visualized. No adrenal masses are visualized. There is no hydronephrosis. No renal, ureteral, or bladder calculi are visualized. There is small bowel and colonic dilatation with multiple air-fluid levels to the level of the splenic flexure. A discrete obstructing mass is not visualized on CT scanning. The findings are slightly more pronounced than on the preceding examination. The uterus is surgically absent. There is no evidence of pathologic adenopathy. There is no evidence of abdominal aortic aneurysm. There is no free intraperitoneal air. There is no significant ascites. No destructive skeletal lesions are visualized IMPRESSION: 1. Right lower lobe atelectasis/consolidation with mild hilar prominence 2. Hepatic steatosis and hepatomegaly 3. Persistent and slightly progressive small bowel and colonic dilatation with air fluid levels an a transition zone located at the level of the splenic flexure. An obstructing mass is not visualized on CT scanning. This finding has been described previously with endoscopic follow-up recommended. If this has not been previously performed, this should be considered in follow-up.
[2020-01-03] MEDS: FUROSEMIDE 80 MG in SYRINGE 0 ML IV SCH (17:18)
[2020-01-03] MEDS: LACTATED RINGER'S 1,000 ML IV SCH (17:18)
[2020-01-03] MEDS: SIMVASTATIN 20 MG TAB PO SCH (20:45)
[2020-01-03] MEDS: ROPINIROLE HCL 1 MG TABLET PO SCH (20:45)
[2020-01-03] MEDS: ASPIRIN 81 MG ECTAB PO SCH (20:47)
[2020-01-04] MEDS: ALBUT/IPRATROP 3MG/0.5MG NEB 3 ML VIAL NEB PRN ×2 (04:33→16:04)
[2020-01-04] MEDS: LEVOTHYROXINE SODIUM 75 MCG TABLET PO SCH (06:01)
[2020-01-04] MEDS: LEVOTHYROXINE SODIUM 200 MCG TABLET PO SCH (06:01)
[2020-01-04] MEDS: INSULIN ASPART 100 UNITS/ML 3 ML PEN SC SCH ×4 (06:05→23:52)
[2020-01-04] MEDS: ESCITALOPRAM OXALATE 10 MG TAB PO SCH (07:34)
[2020-01-04] MEDS: POLYETHYLENE (MIRALAX) 17 GM PACK PO SCH (07:34)
[2020-01-04] MEDS: POTASSIUM CHLORIDE 20 MEQ TABCR PO SCH ×2 (07:34→16:52)
[2020-01-04] MEDS: FERROUS SULFATE 325 MG TAB PO SCH (07:34)
[2020-01-04] MEDS: LABETALOL HCL 300 MG TAB PO SCH ×2 (07:36→20:58)
[2020-01-04] MEDS: PANTOprazole 40 MG TAB PO SCH (07:40)
[2020-01-04] MEDS: allopurinoL 100 MG TAB PO SCH (07:40)
[2020-01-04] MEDS: IRON SUCROSE 200 MG in 0.9 % SODIUM CHLORIDE 100 ML IV SCH (08:23)
[2020-01-04] MEDS: FLUTICASONE/VILANTEROL 200/25MCG 14 PUFFS/INHALER INH SCH (08:23)
[2020-01-04] MEDS: PIPERACILLIN/TAZOBACTAM 4.5 GM in DEXTROSE 5% 100 ML IV SCH ×3 (08:23→22:47)
[2020-01-04] MEDS: DICLOFENAC SOD 1% GEL 100 GM TUBE EXT SCH ×2 (08:24→20:59)
[2020-01-04] MEDS: FUROSEMIDE 80 MG in SYRINGE 0 ML IV SCH (08:24)
[2020-01-04 08:42] LABS: Hematocrit (blood only) 35.3 % (37-47); Hemoglobin 10.9 g/dL (12.0-16.0); Mean Corpuscular Hemoglobin 25.8 pg (25-34); Mean Corpuscular Hgb Conc 30.9 g/dL (32-36); Mean Corpuscular Volume 83.5 fL (80-100); Mean Platelet Volume 9.6 fL (7.4-10.4); Platelet Count 537 K/uL (130-400); RDW Coefficient of Variation 16.9 % (11.5-14.5); RDW Standard Deviation 51.5 fL (36.4-46.3); Red Blood Count 4.23 M/uL (4.2-5.4); White Blood Count 10.73 K/uL (4.8-10.8)
--- NOTE | 2020-01-04 08:58 | Hospitalist Progress Note ---
Date of Service January 04, 2020 Assessment & Plan (1) Cellulitis: Ruth Cisneros is a 74 year old female with h/o DM II with CKD, asthma, heart failure, and peripheral vascular disease admitted for bilateral LE cellulitis and edema with nonhealing ulcers that failed outpatient therapy. Recent course complicated by moderate ileus, LBO (transition point at splenic flexure) and fluid balance. Bilateral lower extremity cellulitis with underlying venous stasis -12/28/19 R leg surface wound culture: many pseudomonas -wound cultures show Pseudomonas aeruginosa that is susceptible to Zosyn. ? nosocomial -Blood cultures no growth at 5 days -being followed by wound care, per their photos BLE edema has not improved -Continue IV Zosyn. home on ?quinolone. -External leg compression with daily wraps for venous stasis, continue upon d/c Ileus -had received ~2-3 doses of IV morphine over the first few days of admission -discontinued IV morphine PRNs on 01/01/20 due to concern for contribution to ileus -Did have two bowel movements on 01/01. Abdomen still severely distended with hyperactive bowel sounds. Continues to pass flatus and small amount of diarrhea. -CT abdomen/pelvis w/ PO/IV contrast showed small bowel and colonic dilatation with air fluid levels and a transition zone at the splenic flexure with no visualized obstructing mass -NG tube to low suction produced 1L over 24 hours of gastric dark brown fluid. -NG tube fell out this morning and patient refused reinsertion due to discomfort. -NPO -Zofran PRN for continued nausea -general surgery consulted. -consider colonoscopy tomorrow -reverse INR Supratherapeutic INR -hold warfarin. -vitamin K today 5 mg administered yesterday -INR in PM: 1.3. Plan is for colonoscopy tomorrow. Concern of aspiration -NPO -consult speech therapy. Not yet evaluated because waiting to evaluate after colonoscopy. -nutrition consulted because NPO > 3 days: when medically appropriate, ADAT to low fiber, heart healthy, CHO. Continue to monitor daily wts and I/O's; Lytes repletion PRN. IVF while NPO SONIA on CKD 3-4 -Creatinine 2.33->2.55 (baseline is 1.7) -Per Nephro consult: -increase Lasix to 80 mg IV twice a day, aim for net negative around 0.5-1 liter per day -continue Lasix 80 mg IV BID -consider scheduled dose of bronchodilator instead of p.r.n. -continue on IV Venofer - Monitor renal function - Potassium 3.53 today; KCl 40 mEq PO and 2 10 mEQ K riders given today. - Magnesium 2.6 today, will continue to trend Acute exacerbation of HFpEF with underlying right heart dysfunction -Patient has hx of heart failure with preserved EF, being managed with bumetanide 4 mg BID at home -Patient reports that she has not been taking her diuretic as instructed recently, which may have triggered the BLE edema -Urine output in AM and afternoon 650 mL. 1L NG tube output. I/O Balance is 440mL. Dyspnea at rest -improved, patient reports that she has not always been using nasal cannula -bilat rhonchi on physical exam, unchanged from previous day -CXR consistent mild congestive heart failure -likely due to fluid overload secondary to heart failure and recent lapse in diuretic therapy -wean off oxygen as tolerated Persistent Asthma -Continue duonebs PRN -No wheezing today, clinically improved -Continue daily Breo Ellipta. Type II DM -hyperglycemic in the low 300s during first 2 days of admission -Pharmacy managing w/ basal doses + SSI. Sugars now in the ~90s-200 range. HTN -Continue home labetalol 600mg BID SHELIA -Patient uses home CPAP but has declined use in the hospital -Counseled today on the importance of continuing CPAP while hospitalized Normocytic Anemia -Hgb: 10.6, Hct 35.3%, MCV 84.4 -Likely anemia of chronic disease secondary to CKD -CBC daily Hypothyroidism -Continue home levothyroxine 200mcg daily OA bilateral knees -Continue diclofenac gel BID to affected areas -Ambulate to chair daily GERD -Patient on omeprazole 20mg daily at home -While inpatient- pantoprazole 40mg daily Hyperlipidemia -Continue home simvastatin 20mg daily History of anxiety disorder -Anxiety improves with improving respiratory status -Continue home escitalopram Code Status: full FEN/GI: NPO. LR 50mL/hr DVT ppx: Warfarin held today for supratherapeutic INR 4.0; will continue to trend PT/INR Dispo: Med/Surg floor. COVID test ordered for possible SNF placement. (2) 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, with long- term current use of insulin: (3) Obstructive sleep apnea syndrome: (4) Asthma: (5) CHF (congestive heart failure): (6) Hypokalemia: (7) Chronic GERD: (8) Hyperlipidemia: (9) Anemia: (10) Dyspnea: Admission and Anticipated Discharge Date Admission Date: December 28, 2019 Supervising Physician Co-Signing Physician Notes I personally examined the patient and verified all johansen points of history and exam, discussed case, and agree with decision making with Dr Mendes. feeling ok - just hungry. legs feel much better. for scope tomorrow vitals noted nad heent nc at mmm breathing unlabored no accessory muscles. b/l LE venous stasis changes no tracking erythema dressed mid foss but no erythema noted venous stasis cellulitis - improved, zosyn. continue for now and follow bowel obstruction - for scope tomorrow INR reversed. follow otherwise as above Subjective Pt. denies abd pain. She reports a tiny bit of bloating. Her bilateral lower extremity bandages were rewrapped this morning. No sob, cp, f/c, n/v. +mild diarrea, no constipation. No urinary sxs. No new complaints regarding leg cellulitis and feels that treatment is working. Review of Systems Review of Systems: Constitutional: Denies fever, chills Cardiovascular: Positive for extremity swelling. Denies chest pain Respiratory: Denies shortness of breath Gastrointestinal: Mild diarrhea. Denies abdominal pain, nausea, vomiting, constipation Genitourinary: Denies urinary symptoms including dysuria Musculoskeletal: Denies weakness, muscle aches/pain, joint aches/pain Integumentary: Positive for rash Neurological: Denies headache, focal weakness Physical Exam Physical Exam: General: A&Ox3. NAD. Cooperative. HEENT: Atraumatic, normocephalic. Pulm: Bilateral rhonchi. -wheezes, -rales. Symmetrical chest rise. No respiratory distress. Cardiac: RRR, -mrg. Radial pulses intact and symmetrical. Abd soft, distended, nontender Msk: bilat LE wrapped in bandage, c/d/i Results & Data Results & Data ([facility]) Vital Signs (Past 12 Hours) Vital Signs Temp Pulse Pulse Resp BP BP Pulse Ox 01/04/20 05:01 36.6 C 77 18 158/78 H 96 01/04/20 04:33 75 22 94 01/04/20 00:00 77 08/02/20 23:08 36.9 C 80 18 167/73 H 91 01/03/20 19:23 36.5 C 73 18 143/67 H 92 (1) CHF (congestive heart failure) Heart failure chronicity: chronic Heart failure type: diastolic Qualified Code(s): I50.32 - Chronic diastolic (congestive) heart failure
[2020-01-04] MEDS ORDERED: INSULIN GLARGINE SOLOSTAR 100 UNITS/ML 3 ML PEN SC ONE (09:00)
[2020-01-04 09:11] LABS: Albumin Level 2.2 gm/dl (3.4-5.0); BUN Creatinine Ratio 28.4 (10-20); Calcium 9.6 mg/dl (8.5-10.1); Creatinine Clr Calc Pharmacy 28.3 ml/min; Est GFR (African American) 20.9; Magnesium 2.6 mg/dl (1.8-2.4); Potassium 3.3 mmol/L (3.5-5.1)
[2020-01-04 09:13] LABS: Phosphorus 3.8 mg/dl (2.5-4.9)
[2020-01-04] MEDS ORDERED: POTASSIUM CHLORIDE 20 MEQ TABCR PO STA (09:20)
--- NOTE | 2020-01-04 09:27 | Pharmacy Report ---
Pharmacy Glycemic Short Note 2 - Date of Service January 04, 2020 - Glycemic Short BSG Results (Last 24 hours): OUTPATIENT ANTIDIABETIC REGIMEN: * Glargine 100units Q PM * Novolog 20 units w/ meals + sliding scale, up to 80 units per day * A1c = 8.3% 12/30/2019 ASSESSMENT: 01/03: * Patient received 113 units of insulin yesterday: * 110 units of basal + 3 units of bolus * BSGs ranged from 98 - 160 mg/dL * BSGs consistently decreased throughout the day yesterday despite basically no correctional/prandial insulin (patient remains NPO). * Fasting BSG this AM was 83 mg/dL. Decreased basal dose this AM by ~15%. Will decrease evening basal dose per scale. * No change to Novolog parameters at this time. 01/02: * Type 2 diabetic admitted yesterday due to worsening cellulitis of lower extremities and non-healing ulcerations * Patient has been followed by glycemic control service several times in the past year * Patient received 129 units of insulin yesterday: * 105 units of basal * 24 units of bolus (indicates correction only - pt remains NPO) * BSGs ranged from 116 - 244 mg/dL * Fasting BSG is above goal. Will increase Lantus by ~15%. * Novolog correction factor was tightened from 10 to 8 yesterday. Improvement in post prandials noted. Continue same for now. PLAN FOR INPATIENT GLYCEMIC CONTROL: * Basal insulin - decreased * Lantus 50 units SQ QAM * Lantus 40-45 units SQ QPM (see eMAR for further details) * Bolus insulin * NovoLog per scale ACHS * Goal Range: Low 110 mg/dL - High 140 mg/dL * Correction Factor: 8 mg/dL/unit * Nutritional / Prandial insulin per carb ratio of 1 unit per 4 grams CHO consumed PLAN FOR DISCHARGE: * A1c 8.3%, slightly above goal * F/u with outpatient provider for insulin adjustments as needed
--- NOTE | 2020-01-04 09:29 | Gastrointestinal Consultation ---
Date of Consultation January 04, 2020 Assessment & Plan (1) Abdominal pain: CT evidence of small bowel and colonic dilatation with multiple air-fluid levels to the level of the splenic flexure. A discrete obstructing mass is not visualized on CT scanning. Colonoscopy in 2018 was unremarkable. INR is 4.0. -Will defer reversal of INR to hospitalist team -If INR is reversed, proceed with colonoscopy on 01/05/2020 -Continue with NG/suction -Supportive care per primary team Thank you for allowing us to participate in the care of this patient. If you should have any further questions or concerns, do not hesitate to contact us at extension [phone] or [phone]. Supervising Physician Co-Signing Physician Notes I personally evaluated the patient and agree with the findings as documented by Karen Keller, PAC Exam: abd: mildly stiff abdomen, nt, distended and obese possible large bowel obstruction at the splenic flexure, plan for colonoscopy to evaluate further tomorrow. Please correct the INR prior to procedure. History of Present Illness Reason for Consultation: Possible large bowel obstruction Attending Physician: Lul Roberts, History of Present Illness Patient is a 74 yo female with a PMH of DM2, COPD, CHF, Mitral regurgitation, & DVT with bilateral pulmonary emboli on warfarin therapy, CKD. She is hospitalized for bilateral cellulitis (Pseudomonas) of the lower extremities. Since admission, she reports worsening abdominal discomfort. She reports that this abdominal pain is throughout the abdomen. She is notably distended. She reports that 2 weeks ago she had intermittent abdominal cramping that never progressed. She reports several episodes of diarrhea within the past 2 days. She has not experienced vomiting. She underwent a CT scan of the abdomen and pelvis that showed dilated colon and small bowel with a possible transition point in the splenic flexure. She had a colonoscopy [address] Mcallister that indicated internal hemorrhoids. She has a history of 2 abdominal surgeries including a lap waldo & hysterectomy with BLSOO. Allergies Allergy/AdvReac Type Severity Reaction Status Date / Time ibuprofen Allergy Intermediate HIVES Verified 12/28/19 19:56 lisinopril AdvReac Mild COUGH Verified 12/28/19 19:56 pramipexole AdvReac Unknown Verified 12/28/19 19:56 zolpidem AdvReac drowsinesss Verified 12/28/19 19:56 Home Medications Home Medications Medication Instructions Recorded Confirmed Type aspirin [Aspirin Low Dose] 81 mg PO HS #0 07/25/17 12/28/19 History cholecalciferol (vitamin D3) 3,000 unit PO QAM #0 tab 07/25/17 12/28/19 History [Vitamin D3] cyanocobalamin (vitamin B-12) 1,000 mcg PO QAM #0 tab 07/25/17 12/28/19 History [Vitamin B-12] omeprazole 20 mg PO QAM #0 cap 07/25/17 12/28/19 History levothyroxine 200 mcg tablet 200 mcg PO QAM 03/09/19 12/28/19 History melatonin 10 mg capsule 10 mg PO HS PRN 03/09/19 12/28/19 History acetaminophen 500 mg capsule 500 mg PO Q6H PRN 04/06/19 12/28/19 History albuterol sulfate 90 mcg/actuation 2 puff INHALATION Q4H PRN #18 gm 06/15/19 12/28/19 Rx aerosol inhaler ferrous sulfate 325 mg (65 mg 325 mg PO DAILY 06/15/19 12/28/19 History iron) tablet levalbuterol HCl 0.63 mg/3 mL 0.63 mg INH Q6H PRN #36 ml 06/15/19 12/28/19 Rx solution for nebulization simvastatin 20 mg tablet 20 mg PO PM #90 tab 07/23/19 12/28/19 Rx buspirone 5 mg tablet 5 mg PO BID PRN #30 tab 08/01/19 12/28/19 Rx labetalol 600 mg PO BID #720 tab 08/01/19 12/28/19 Rx warfarin See Rx Instructions PO UD 90 Days 08/01/19 12/28/19 Rx #70 tab levothyroxine 75 mcg tablet 75 mcg PO QAM #90 tab 09/08/19 12/28/19 Rx blood-glucose meter #1 ea 09/29/19 12/28/19 Rx allopurinol 100 mg tablet 100 mg PO DAILY #30 tab 10/08/19 12/28/19 Rx bumetanide 2 mg tablet 4 mg PO .COMPLEX #90 tab 10/12/19 12/28/19 Rx diclofenac sodium 1 % topical gel 2 gm TOP QID #100 gm 10/19/19 12/28/19 Rx escitalopram oxalate 10 mg tablet 10 mg PO DAILY #90 tab 10/19/19 12/28/19 Rx ropinirole 1 mg tablet 1 mg PO HS #90 tab 10/19/19 12/28/19 Rx blood sugar diagnostic See Rx Instructions .ROUTE 11/03/19 12/28/19 Rx .COMPLEX #300 strip cyclobenzaprine 5 mg tablet 5 mg PO HS PRN #30 tab 11/16/19 12/28/19 Rx metolazone 2.5 mg tablet 2.5 mg PO DAILY PRN #15 tab 11/19/19 12/28/19 Rx insulin aspart U-100 100 unit/mL See Rx Instructions SQ .COMPLEX 11/24/19 12/28/19 Rx (3 mL) subcutaneous pen #30 ml fluticasone furoate 200 1 puffs INH DAILY #60 ea 12/03/19 12/28/19 Rx mcg-vilanterol 25 mcg/dose inhalation powder potassium chloride 20 mEq 20 meq PO BID #180 tab 12/14/19 12/28/19 Rx tablet,extended release(part/cryst) hydroxyzine HCl 25 mg tablet 25 mg PO BID PRN #30 tab 12/17/19 12/28/19 Rx insulin glargine 100 unit/mL (3 100 unit SUBCUT QPM 90 Days #90 ml 12/17/19 12/28/19 Rx mL) subcutaneous pen acetic acid 0.25 % irrigation 100 ml IR DAILY 14 Days #1000 ml 12/24/19 12/28/19 Rx solution cefdinir 300 mg capsule 300 mg PO BID 14 Days #28 cap 12/24/19 12/28/19 Rx Patient History Medical History Anemia Arthritis (Acute) CHF (congestive heart failure) (Chronic) Chronic GERD (Chronic) Chronic kidney disease, stage III (moderate) COPD (chronic obstructive pulmonary disease) (Chronic) Depression (Chronic) Diabetes (Resolved) Diabetic neuropathy (Chronic) Health care maintenance Hemorrhoids (Chronic) HTN (hypertension) (Chronic) Hyperlipidemia (Chronic) Hypothyroidism Left bundle branch block (Chronic) Lymphedema (Chronic) Mild mitral stenosis (Chronic) Mitral regurgitation (Chronic) Morbid obesity (Chronic) SHELIA on CPAP Osteopenia (Chronic) Proteus infection (Inactive) Restless leg syndrome (Chronic) Sleep apnea (Inactive) Stage III chronic kidney disease (Chronic) Urinary incontinence (Chronic) Venous insufficiency (Chronic) Vitamin D deficiency Vulvar cyst (Chronic) Vulvovaginitis (Chronic) Surgical History (Updated 01/03/20 @ 16:00 by Bharat Drake MD) H/O hysterectomy with oophorectomy History of cataract surgery History of cholecystectomy Family History Mother Diabetes Colon cancer Lung cancer Father Esophageal cancer Other Hypertension Denies family history of Ovarian cancer Prostate cancer Myocardial infarction Breast cancer Social History Smoking Status: Never smoker Second Hand Exposure: No; Hx Alcohol Use: No Hx Substance Use: No Preferred Language: Georgian Communication Ability: Effective Visual Impairment: No Limitations Hearing Ability: Normal Car Parker Required: No Beliefs That Will Affect Care: None marital status: Current Living Situation: Alone Current Living Situation Comment: Duplex Other Information That Helps Us Care for You: No Feels Safe at Home: Yes Safety Concerns: Feels Safe At This Time Seatbelt Use: always Review of Systems Constitutional: no fever and no chills Eyes: no problem reported Ear, Nose, Mouth, Throat: no problem reported Respiratory: no cough and no dyspnea Cardiovascular: no chest pain Gastrointestinal: + abdominal pain, + bloating and + diarrhea/loose stools Musculoskeletal: no problem reported Integumentary: no rash Neurologic: no problem reported Psychiatric: no problem reported Endocrine: + fatigue Physical Exam Constitutional: well developed, + ill appearing and + morbidly obese Eyes: PERRL, conjunctivae normal, anicteric sclerae Neck: normal visual inspection Respiratory: no respiratory distress Cardiovascular: Rate/Rhythm: regular rate Gastrointestinal (Abdomen): Inspection/Auscultation: + abdomen distended and + hypoactive bowel sounds Percussion/Palpation: + abdomen tender Musculoskeletal: Head/Neck/Chest: normocephalic Skin: + rash and + ulcer Psychiatric: Orientation: alert Affect: + depressed affect Results & Data ([facility]) Vital Signs (Past 12 Hours) Vital Signs Temp Pulse Pulse Resp BP BP Pulse Ox 01/04/20 07:19 73 01/04/20 07:06 37.1 C 73 18 148/69 H 94 01/04/20 05:01 36.6 C 77 18 158/78 H 96 01/04/20 04:33 75 22 94 01/04/20 00:00 77 01/03/20 23:08 36.9 C 80 18 167/73 H 91 PG Care Time/CCT Total # of Minutes Spent Total Time Spent with Patient: Total time spent is greater than 50% in coordination of care (as documented) at patient's floor/unit and/or counseling patient: Coding Level of Care Code 55934 Initial Inpt Care Lvl 3 Diagnoses Abdominal pain R10.84 Abdominal location: generalized (1) Abdominal pain Abdominal location: generalized Qualified Code(s): R10.84 - Generalized abdominal pain
--- NOTE | 2020-01-04 09:42 | Nephrology Progress Note ---
Date of Service January 04, 2020 Assessment & Plan (1) Acute kidney injury: Terrie has stage III CKD with baseline creatinine around 1.7-2, admitted to the hospital with volume overload and congestive heart failure as she seems to have stopped her home diuretics for few days prior to admission. On admission he was found to have AK I and volume overload, started back on IV diuretics. Creatinine has been staying relatively stable around 2.3-2.4, electrolyte acceptable. Also found to have right leg cellulitis with Pseudomonas aeruginosa growing. Blood culture negative. Has chronic anemia with iron deficiency. Hemoglobin has been relatively stable. She continues to have significant pulmonary edema, net even, renal function slightly worsened. -- KCL 40 MEQ now, continue Lasix to 80 milligram IV twice a day, aim for net negative around 0.5-1 liter per day, may need even higher dose of diuretics. Need to monitor volume status, renal function electrolyte closely. Risk for progressive worsening of renal function and azotemia remains as she is requiring higher dose of diuretics. --Narayan catheter and strict I/O -- continue on IV Venofer --left arm nephrology precaution Will follow Admission and Anticipated Discharge Date Admission Date: December 28, 2019 Subjective Terrie was seen and examined in her room this morning. Overall has been feeling poorly, continues to have shortness of breath and wheezing and c/o dry mouth. Net even !/O in last 24 hours but probably not accurate due to incontinence. Blood pressure stable. Renal function slightly worsened, hypokelemia. Review of Systems Review of Systems: All systems reviewed & are unremarkable except as noted in HPI & below Physical Exam Constitutional: + ill appearing and + morbidly obese; no acute distress Respiratory: + respiratory distress and able to speak in complete sentences Auscultation: + crackles and + wheezes Cardiovascular: RRR, no murmur, no edema Neurologic: moves all extremities and awake; not confused Psychiatric: A+Ox3, euthymic affect Results & Data ([facility]) Vital Signs (Past 12 Hours) Vital Signs Temp Pulse Pulse Resp BP BP Pulse Ox 01/04/20 07:19 73 01/04/20 07:06 37.1 C 73 18 148/69 H 94 01/04/20 05:01 36.6 C 77 18 158/78 H 96 01/04/20 04:33 75 22 94 01/04/20 00:00 77 01/03/20 23:08 36.9 C 80 18 167/73 H 91 PG Care Time/CCT Total # of Minutes Spent Total Time Spent with Patient: Total time spent is greater than 50% in coordination of care (as documented) at patient's floor/unit and/or counseling patient: Coding Level of Care Code 36513 Subseq Hosp Care Lvl 3 Diagnoses Acute kidney injury N17.9
--- NOTE | 2020-01-04 11:45 | Surgery Progress Note ---
Date of Service January 04, 2020 Assessment & Plan (1) Abdominal pain: This patient has dilated colon and small bowel. There seems to be a transition point by radiologic criteria at the splenic flexure. She had a colonoscopy 2 years ago that was apparently normal. The etiology would be uncl ear. It would most likely not be due to adhesions. She would be a very poor candidate for surgical intervention considering her multiple comorbid conditions and especially her progressively increasing creatinine, diabetes, INR of 4.0 despite not having warfarin for at least 2 to 3 days. She also has congestive heart failure with volume overload and escalating needs for diuretics. Nephrology has requested precautions with the left arm presumably for possible need for dialysis. Does not have peritonitis and there is no evidence for immediate surgical intervention however her colon is dilated. GI consultation today, considering colonoscopy once INR reversed on 01/05/[address] Drake has seen and examined patient, agrees with above. Supervising Physician Co-Signing Physician Notes I interviewed and examined the patient I agree with the above note. She has no evidence of peritonitis and feels better. When her INR normalizes she will have colonoscopy. Subjective feeling better since NGT was removed and not replaced had a bowel movement having gas pains and hunger pains No abdominal pain similar to yesterday Physical Exam Constitutional: WD/WN, vitals as above + morbidly obese Gastrointestinal (Abdomen): Inspection/Auscultation: abdomen normal to inspection; abdomen not distended Percussion/Palpation: abdomen soft; abdomen nontender, no guarding and abdomen not rigid Skin: no rashes, warm and dry Psychiatric: A+Ox3, euthymic affect Results & Data Vital Signs (Past 12 Hours) Vital Signs Temp Pulse Pulse Resp BP BP Pulse Ox 01/04/20 07:19 73 01/04/20 07:06 37.1 C 73 18 148/69 H 94 01/04/20 05:01 36.6 C 77 18 158/78 H 96 01/04/20 04:33 75 22 94 01/04/20 00:00 77 Laboratory Results 01/04/20 01/04/20 01/04/20 Range/Units 11:41 08:05 08:05 WBC 10.73 (4.8-10.8) K/uL RBC 4.23 (4.2-5.4) M/uL Hgb 10.9 L (12.0-16.0) g/dL Hct 35.3 L (37-47) % MCV 83.5 (80-100) fL MCH 25.8 (25-34) pg MCHC 30.9 L (32-36) g/dL RDW Std Deviation 51.5 H (36.4-46.3) fL RDW Coeff of Joycelyn 16.9 H (11.5-14.5) % Plt Count 537 H (130-400) K/uL MPV 9.6 (7.4-10.4) fL Sodium 145 (136-145) mmol/L Potassium 3.3 L (3.5-5.1) mmol/L Chloride 109 H (98-107) mmol/L Carbon Dioxide 26 (21-32) mmol/L Anion Gap 10.0 (3-11) BUN 73 H (7-18) mg/dl Creatinine 2.55 H (0.6-1.2) mg/dl Est Cr Clr Drug Dosing 28.3 ml/min Est GFR ( Amer) 20.9 Est GFR (Non-Af Amer) 18.0 BUN/Creatinine Ratio 28.4 H (10-20) Glucose 79 (70-99) mg/dl POC Glucose 97 (70-99) mg/dl Calcium 9.6 (8.5-10.1) mg/dl Phosphorus 3.8 (2.5-4.9) mg/dl Magnesium 2.6 H (1.8-2.4) mg/dl Albumin 2.2 L (3.4-5.0) gm/dl 01/04/20 01/03/20 01/03/20 Range/Units 05:30 23:28 20:15 WBC (4.8-10.8) K/uL RBC (4.2-5.4) M/uL Hgb (12.0-16.0) g/dL Hct (37-47) % MCV (80-100) fL MCH (25-34) pg MCHC (32-36) g/dL RDW Std Deviation (36.4-46.3) fL RDW Coeff of Joycelyn (11.5-14.5) % Plt Count (130-400) K/uL MPV (7.4-10.4) fL Sodium (136-145) mmol/L Potassium (3.5-5.1) mmol/L Chloride (98-107) mmol/L Carbon Dioxide (21-32) mmol/L Anion Gap (3-11) BUN (7-18) mg/dl Creatinine (0.6-1.2) mg/dl Est Cr Clr Drug Dosing ml/min Est GFR ( Amer) Est GFR (Non-Af Amer) BUN/Creatinine Ratio (10-20) Glucose (70-99) mg/dl POC Glucose 83 98 109 H (70-99) mg/dl Calcium (8.5-10.1) mg/dl Phosphorus (2.5-4.9) mg/dl Magnesium (1.8-2.4) mg/dl Albumin (3.4-5.0) gm/dl 01/03/20 01/03/20 Range/Units 18:09 07:04 WBC (4.8-10.8) K/uL RBC (4.2-5.4) M/uL Hgb (12.0-16.0) g/dL Hct (37-47) % MCV (80-100) fL MCH (25-34) pg MCHC (32-36) g/dL RDW Std Deviation (36.4-46.3) fL RDW Coeff of Joycelyn (11.5-14.5) % Plt Count (130-400) K/uL MPV (7.4-10.4) fL Sodium (136-145) mmol/L Potassium (3.5-5.1) mmol/L Chloride (98-107) mmol/L Carbon Dioxide (21-32) mmol/L Anion Gap (3-11) BUN (7-18) mg/dl Creatinine (0.6-1.2) mg/dl Est Cr Clr Drug Dosing ml/min Est GFR ( Amer) Est GFR (Non-Af Amer) BUN/Creatinine Ratio (10-20) Glucose (70-99) mg/dl POC Glucose 130 H (70-99) mg/dl Calcium (8.5-10.1) mg/dl Phosphorus (2.5-4.9) mg/dl Magnesium 2.4 (1.8-2.4) mg/dl Albumin (3.4-5.0) gm/dl (1) Abdominal pain Abdominal location: generalized Qualified Code(s): R10.84 - Generalized abdominal pain
[2020-01-04] MEDS: LACTATED RINGER'S 1,000 ML IV SCH (12:21)
[2020-01-04 14:35] LABS: INR 1.3 (0.9-1.1)
[2020-01-04] MEDS: POTASSIUM CHLORIDE / WTR 10 MEQ/100 ML PLCT IV SCH ×2 (14:45→15:46)
--- NOTE | 2020-01-04 17:55 | Billing Data ---
Date of Service January 04, 2020 Coding Level of Care Code 75278 Subseq Hosp Care Lvl 3
[2020-01-04] MEDS: ONDANSETRON INJ 2 MG/ML 2 ML VIAL IV PRN (18:51)
[2020-01-04] MEDS: LAVAGE SOLUTION 4000ML PO SCH (19:44)
[2020-01-04] MEDS ORDERED: METOCLOPRAMIDE HCL INJ 5 MG/ML 2 ML VIAL IV PRN (20:12)
[2020-01-04] MEDS: ROPINIROLE HCL 1 MG TABLET PO SCH (20:58)
[2020-01-04] MEDS: SIMVASTATIN 20 MG TAB PO SCH (20:58)
[2020-01-04] MEDS: ASPIRIN 81 MG ECTAB PO SCH (20:59)
[2020-01-04] MEDS: INSULIN GLARGINE SOLOSTAR 100 UNITS/ML 3 ML PEN SC SCH (20:59)
[2020-01-05] MEDS: ALBUT/IPRATROP 3MG/0.5MG NEB 3 ML VIAL NEB PRN (00:05)
[2020-01-05] MEDS: LAVAGE SOLUTION 4000ML PO SCH (02:48)
[2020-01-05] MEDS: INSULIN ASPART 100 UNITS/ML 3 ML PEN SC SCH ×4 (06:44→20:22)
[2020-01-05 07:00] LABS: Hematocrit (blood only) 37.2 % (37-47); Hemoglobin 11.6 g/dL (12.0-16.0); Mean Corpuscular Hemoglobin 25.9 pg (25-34); Mean Corpuscular Hgb Conc 31.2 g/dL (32-36); Mean Platelet Volume 9.2 fL (7.4-10.4); Platelet Count 571 K/uL (130-400); RDW Coefficient of Variation 16.8 % (11.5-14.5); Red Blood Count 4.48 M/uL (4.2-5.4); White Blood Count 14.64 K/uL (4.8-10.8)
[2020-01-05] MEDS: LEVOTHYROXINE SODIUM 75 MCG TABLET PO SCH (07:01)
[2020-01-05] MEDS: LEVOTHYROXINE SODIUM 200 MCG TABLET PO SCH (07:01)
[2020-01-05 07:18] LABS: INR 1.2 (0.9-1.1); Prothrombin Time 12.9 Seconds (9.0-12.0)
[2020-01-05] MEDS ORDERED: FAMOTIDINE 10 MG in SYRINGE 3 ML IV PRN (07:27)
[2020-01-05] MEDS ORDERED: FAMOTIDINE 10 MG in SYRINGE 4 ML IV PRN (07:33)
[2020-01-05] MEDS: POTASSIUM CHLORIDE 20 MEQ TABCR PO SCH ×3 (07:36→17:24)
[2020-01-05] MEDS: ESCITALOPRAM OXALATE 10 MG TAB PO SCH ×2 (07:36→08:06)
[2020-01-05] MEDS: FERROUS SULFATE 325 MG TAB PO SCH ×2 (07:36→08:06)
[2020-01-05] MEDS: LABETALOL HCL 300 MG TAB PO SCH ×2 (07:36→20:18)
[2020-01-05] MEDS: PANTOprazole 40 MG TAB PO SCH ×2 (07:37→08:06)
[2020-01-05] MEDS: allopurinoL 100 MG TAB PO SCH ×2 (07:37→08:06)
[2020-01-05 07:40] LABS: Albumin Level 2.3 gm/dl (3.4-5.0); BUN Creatinine Ratio 30.4 (10-20); Calcium 9.7 mg/dl (8.5-10.1); Creatinine Clr Calc Pharmacy 31.7 ml/min; Est GFR (African American) 24.2; Est GFR (Non-African American) 20.8; Phosphorus 3.6 mg/dl (2.5-4.9); Potassium 3.4 mmol/L (3.5-5.1)
[2020-01-05] MEDS: PIPERACILLIN/TAZOBACTAM 4.5 GM in DEXTROSE 5% 100 ML IV SCH ×2 (07:43→16:19)
[2020-01-05] MEDS: DICLOFENAC SOD 1% GEL 100 GM TUBE EXT SCH ×2 (07:43→20:17)
[2020-01-05] MEDS: LACTATED RINGER'S 1,000 ML IV SCH (07:43)
[2020-01-05] MEDS: INSULIN GLARGINE SOLOSTAR 100 UNITS/ML 3 ML PEN SC SCH ×2 (07:44→20:23)
[2020-01-05] MEDS: FLUTICASONE/VILANTEROL 200/25MCG 14 PUFFS/INHALER INH SCH (07:44)
[2020-01-05] MEDS: POLYETHYLENE (MIRALAX) 17 GM PACK PO SCH (08:06)
[2020-01-05] MEDS: IRON SUCROSE 200 MG in 0.9 % SODIUM CHLORIDE 100 ML IV SCH (08:19)
--- NOTE | 2020-01-05 09:25 | History & Physical Bridge Note ---
Date of Service January 05, 2020 History & Physical Bridge Note I have examined the patient, reviewed the History & Physical and in the interval since the performance of the History & Physical I have noted the following changes of clinical significance: no changes noted Unable to tolerate po prep. NG was pulled prior to prep. Will administer 2 fleet enemas and proceed with colonoscopy today for further evaluation.
--- NOTE | 2020-01-05 09:31 | Pharmacy Report ---
Pharmacy Glycemic Short Note 2 - Date of Service January 05, 2020 - Glycemic Short BSG Results (Last 24 hours): OUTPATIENT ANTIDIABETIC REGIMEN: * Glargine 100units Q PM * Novolog 20 units w/ meals + sliding scale, up to 80 units per day * A1c = 8.3% 12/30/2019 ASSESSMENT: 01/04: * Patient received 80 units of insulin yesterday, all basal: * This is ~ 30% decreased from the previous day's total insulin dose * BSGs ranged 83 - 97 mg/dL * No reports of patient having symptoms of low blood sugar. * She remains NPO for the 4th consecutive day. She is scheduled to have a colonoscopy this afternoon; however, she could not tolerate the bowel prep secondary to nausea. * Fasting BSG this AM was 99 mg/dL. PM Lantus dose was reduced even further yesterday evening to 30-40 units depending on BSG. Will continue with current basal dosing BID as patient's max possible dose today would be the same as yesterday (80 units) and min dose would result in a 25% reduction. * She was started on a D5+1/2NS at 50 mL/hr by nephrology today. Informed RN that this will provide 15 gm dextrose in every 6 hours which will need covered with Novolog carb ratio. 01/03: * Patient received 113 units of insulin yesterday: * 110 units of basal + 3 units of bolus * BSGs ranged from 98 - 160 mg/dL * BSGs consistently decreased throughout the day yesterday despite basically no correctional/prandial insulin (patient remains NPO). * Fasting BSG this AM was 83 mg/dL. Decreased basal dose this AM by ~15%. Will decrease evening basal dose per scale. * No change to Novolog parameters at this time. 01/02: * Type 2 diabetic admitted yesterday due to worsening cellulitis of lower extremities and non-healing ulcerations * Patient has been followed by glycemic control service several times in the past year * Patient received 129 units of insulin yesterday: * 105 units of basal * 24 units of bolus (indicates correction only - pt remains NPO) * BSGs ranged from 116 - 244 mg/dL * Fasting BSG is above goal. Will increase Lantus by ~15%. * Novolog correction factor was tightened from 10 to 8 yesterday. Improvement in post prandials noted. Continue same for now. PLAN FOR INPATIENT GLYCEMIC CONTROL: * Basal insulin - decreased * Lantus 30-40 units SQ BID (see eMAR for further details) * Bolus insulin - no change * NovoLog per scale ACHS * Goal Range: Low 110 mg/dL - High 140 mg/dL * Correction Factor: 8 mg/dL/unit * Nutritional / Prandial insulin per carb ratio of 1 unit per 4 grams CHO consumed PLAN FOR DISCHARGE: * A1c 8.3%, slightly above goal * F/u with outpatient provider for insulin adjustments as needed
[2020-01-05] MEDS ORDERED: SOD PHOSPHATE/SOD BIPHOSPHATE ENEMA 132 ML BTL PR STA (09:39)
--- NOTE | 2020-01-05 10:14 | Nephrology Progress Note ---
Date of Service January 05, 2020 Assessment & Plan (1) Acute kidney injury: Terrie has stage III CKD with baseline creatinine around 1.7-2, admitted to the hospital with volume overload and congestive heart failure as she seems to have stopped her home diuretics for few days prior to admission. On admission he was found to have SONIA and volume overload, started back on IV diuretics. Creatinine has been staying relatively stable around 2.3-2.4, electrolyte acceptable. Also found to have right leg cellulitis with Pseudomonas aeruginosa growing. Blood culture negative. Has chronic anemia with iron deficiency. Hemoglobin has been relatively stable. Has been having ideas and abdominal distension, going for colonoscopy today. Renal function electrolyte relatively stable without much changes. Has been having decent urine output without diuretics since yesterday afternoon although net positive. --continue to hold Lasix for now, change IV fluid to D5 with half-normal saline at 50 mL/hour, discontinue IV fluids once started orally and able to take free water --start on amlodipine 5 milligrams p.o. daily and increase dose as needed --strict I/O -- continue on IV Venofer --left arm nephrology precaution, no indication for renal replacement therapy at this time however patient has multiple risk factor for worsening of renal function and needing dialysis in future. Will follow Admission and Anticipated Discharge Date Admission Date: December 28, 2019 Subjective Terrie was seen and examined in her room this morning. No Significant worsening of shortness of breath since yesterday. Blood pressure has been running high.. Renal function and electrolyte relatively stable. Abdomen remained distended and plan for colonoscopy today. Review of Systems Review of Systems: All systems reviewed & are unremarkable except as noted in HPI & below Physical Exam Constitutional: + ill appearing and + morbidly obese; no acute distress Respiratory: + respiratory distress and able to speak in complete sentences Auscultation: + crackles and + wheezes Cardiovascular: RRR, no murmur, no edema Gastrointestinal (Abdomen): Inspection/Auscultation: + abdomen distended and normal bowel sounds Percussion/Palpation: abdomen nontender, no guarding and abdomen not rigid Neurologic: moves all extremities and awake; not confused Psychiatric: A+Ox3, euthymic affect Results & Data ([facility]) Vital Signs (Past 12 Hours) Vital Signs Temp Pulse Pulse Resp BP Pulse Ox 01/05/20 07:16 78 01/05/20 07:07 36.8 C 86 20 175/81 H 92 01/05/20 03:08 36.8 C 87 22 168/84 H 92 01/05/20 00:07 85 22 92 01/04/20 23:34 36.9 C 85 28 H 173/76 H 92 01/04/20 23:15 96 H PG Care Time/CCT Total # of Minutes Spent Total Time Spent with Patient: Total time spent is greater than 50% in coordination of care (as documented) at patient's floor/unit and/or counseling patient: Coding Level of Care Code 85506 Subseq Hosp Care Lvl 3 Diagnoses Acute kidney injury N17.9
[2020-01-05] MEDS ORDERED: AMLODIPINE BESYLATE 5 MG TAB PO ONE (10:30)
[2020-01-05] MEDS ORDERED: D5W AND 1/2NSS 1,000 ML IV SCH (10:30)
--- NOTE | 2020-01-05 11:45 | Anesthesiology Consultation ---
Date of Service January 05, 2020 Assessment & Plan Chart Review Chart Review: Acceptable Risk for Surgery Consults Requested none History Surgery Operation Date: 01/05/20 16:15 Proposed Procedures p Colonoscopy Dr. Mikey Jensen MD Height/Weight Height: 5 ft 4 in Weight: 144.1 kg Allergies Allergy/AdvReac Type Severity Reaction Status Date / Time ibuprofen Allergy Intermediate HIVES Verified 12/28/19 19:56 lisinopril AdvReac Mild COUGH Verified 12/28/19 19:56 pramipexole AdvReac Unknown Verified 12/28/19 19:56 zolpidem AdvReac drowsinesss Verified 12/28/19 19:56 Medications Home Medications Medication Instructions Recorded Confirmed Last Taken aspirin [Aspirin Low Dose] 81 mg PO HS #0 07/25/17 12/28/19 07/26/19 cholecalciferol (vitamin D3) 3,000 unit PO QAM #0 tab 07/25/17 12/28/19 07/26/19 [Vitamin D3] cyanocobalamin (vitamin B-12) 1,000 mcg PO QAM #0 tab 07/25/17 12/28/19 07/26/19 [Vitamin B-12] omeprazole 20 mg PO QAM #0 cap 07/25/17 12/28/19 12/28/19 levothyroxine 200 mcg tablet 200 mcg PO QAM 03/09/19 12/28/19 07/26/19 melatonin 10 mg capsule 10 mg PO HS PRN 03/09/19 12/28/19 Unknown acetaminophen 500 mg capsule 500 mg PO Q6H PRN 04/06/19 12/28/19 12/28/19 albuterol sulfate 90 mcg/actuation 2 puff INHALATION Q4H PRN #18 gm 06/15/19 12/28/19 07/26/19 aerosol inhaler ferrous sulfate 325 mg (65 mg 325 mg PO DAILY 06/15/19 12/28/19 07/26/19 iron) tablet levalbuterol HCl 0.63 mg/3 mL 0.63 mg INH Q6H PRN #36 ml 06/15/19 12/28/19 07/26/19 solution for nebulization simvastatin 20 mg tablet 20 mg PO PM #90 tab 07/23/19 12/28/19 07/26/19 buspirone 5 mg tablet 5 mg PO BID PRN #30 tab 08/01/19 12/28/19 Unknown labetalol 600 mg PO BID #720 tab 08/01/19 12/28/19 12/28/19 warfarin See Rx Instructions PO UD 90 Days 08/01/19 12/28/19 07/26/19 #70 tab levothyroxine 75 mcg tablet 75 mcg PO QAM #90 tab 09/08/19 12/28/19 Unknown blood-glucose meter #1 ea 09/29/19 12/28/19 Unknown allopurinol 100 mg tablet 100 mg PO DAILY #30 tab 10/08/19 12/28/19 Unknown bumetanide 2 mg tablet 4 mg PO .COMPLEX #90 tab 10/12/19 12/28/19 12/28/19 diclofenac sodium 1 % topical gel 2 gm TOP QID #100 gm 10/19/19 12/28/19 Unknown escitalopram oxalate 10 mg tablet 10 mg PO DAILY #90 tab 10/19/19 12/28/19 Unknown ropinirole 1 mg tablet 1 mg PO HS #90 tab 10/19/19 12/28/19 Unknown blood sugar diagnostic See Rx Instructions .ROUTE 11/03/19 12/28/19 Unknown .COMPLEX #300 strip cyclobenzaprine 5 mg tablet 5 mg PO HS PRN #30 tab 11/16/19 12/28/19 Unknown metolazone 2.5 mg tablet 2.5 mg PO DAILY PRN #15 tab 11/19/19 12/28/19 Unknown insulin aspart U-100 100 unit/mL See Rx Instructions SQ .COMPLEX 11/24/19 12/28/19 12/28/19 (3 mL) subcutaneous pen #30 ml fluticasone furoate 200 1 puffs INH DAILY #60 ea 12/03/19 12/28/19 12/28/19 mcg-vilanterol 25 mcg/dose inhalation powder potassium chloride 20 mEq 20 meq PO BID #180 tab 12/14/19 12/28/19 12/28/19 tablet,extended release(part/cryst) hydroxyzine HCl 25 mg tablet 25 mg PO BID PRN #30 tab 12/17/19 12/28/19 Unknown insulin glargine 100 unit/mL (3 100 unit SUBCUT QPM 90 Days #90 ml 12/17/19 12/28/19 Unknown mL) subcutaneous pen acetic acid 0.25 % irrigation 100 ml IR DAILY 14 Days #1000 ml 12/24/19 12/28/19 Unknown solution cefdinir 300 mg capsule 300 mg PO BID 14 Days #28 cap 12/24/19 12/28/19 12/28/19 Active Medications Generic Name Dose Route Start Last Admin Trade Name Freq PRN Reason Stop Dose Admin Acetaminophen 650 mg 12/28/19 23:40 01/02/20 04:28 Tylenol PO 01/27/20 23:39 650 mg Q4H PRN Administration Pain or Fever Albuterol 3 ml 12/29/19 10:34 01/05/20 00:05 Duoneb NEB 01/28/20 10:59 3 ml Q4R PRN Administration shortness of breath Allopurinol 100 mg 12/29/19 09:00 01/05/20 08:06 Zyloprim PO 01/28/20 08:59 Not Given DAILY LANRE Aspirin 81 mg 12/29/19 21:00 01/04/20 20:59 Ecotrin Ectab PO 01/28/20 20:59 81 mg HS LANRE Administration Diclofenac Sodium 2 gm 12/29/19 09:00 01/05/20 07:43 Voltaren 1% Top EXT 01/28/20 08:59 2 gm BID LANRE Administration Escitalopram Oxalate 10 mg 12/29/19 09:00 01/05/20 08:06 Lexapro Tab PO 01/28/20 08:59 Not Given DAILY LANRE Ferrous Sulfate 325 mg 12/29/19 09:00 01/05/20 08:06 Feosol PO 01/28/20 08:59 Not Given DAILY LANRE Fluticasone/Vilanterol 1 puffs 12/29/19 09:00 01/05/20 07:44 Breo Ellipta 200/25 Mcg Inh INH 01/28/20 08:59 1 puffs DAILY LANRE Administration Piperacillin Sod/Tazobactam 120 mls @ 30 mls/hr 12/29/19 15:00 01/05/20 11:21 Sod 4.5 gm/ Dextrose IV 01/05/20 14:59 Infused Q8H LANRE Infusion Protocol Iron Sucrose 200 mg/ Sodium 110 mls @ 220 mls/hr 01/03/20 09:00 01/05/20 08:53 Chloride IV 01/06/20 09:29 Infused DAILY LANRE Infusion Dextrose/Sodium Chloride 1,000 mls @ 50 mls/hr 01/05/20 10:30 01/05/20 11:21 D5w And 1/2nss IV 02/04/20 10:29 0 mls/hr .Q20H LANRE Infusion Insulin Aspart 0 units 01/02/20 06:00 01/05/20 11:28 Novolog Flexpen SC 02/01/20 05:59 Not Given Q6 LANRE Protocol Insulin Glargine 0 units 01/04/20 21:00 01/05/20 07:44 Lantus Solostar Pen SC 02/03/20 20:59 30 units BID LANRE Administration Protocol Labetalol HCl 600 mg 12/29/19 09:00 01/05/20 07:36 Normodyne PO 01/28/20 08:59 Not Given BID LANRE Levothyroxine Sodium 200 mcg 12/29/19 06:30 01/05/20 07:01 Synthroid PO 01/28/20 06:29 Not Given DAILYBB [facility] Levothyroxine Sodium 75 mcg 12/29/19 06:30 01/05/20 07:01 Synthroid PO 01/28/20 06:29 Not Given DAILYBB [facility] Metoclopramide HCl 10 mg 01/04/20 20:12 01/04/20 20:18 Reglan IV 02/03/20 20:11 10 mg Q6H PRN Administration Nausea Miconazole Nitrate 1 appln 12/29/19 03:21 12/29/19 11:02 Desenex EXT 01/28/20 03:20 1 appln PRN PRN Administration Affected Skin Folds Ondansetron HCl 4 mg 12/28/19 23:40 01/04/20 18:51 Zofran IV 01/27/20 23:39 4 mg Q6H PRN Administration Nausea Pantoprazole Sodium 40 mg 12/29/19 09:00 01/05/20 08:06 Protonix PO 01/28/20 08:59 Not Given QAM [facility] Polyethylene Glycol 17 gm 12/31/19 09:00 01/05/20 08:06 Miralax Powder Packet PO 01/30/20 08:59 Not Given DAILY LANRE Potassium Chloride 20 meq 12/29/19 08:00 01/05/20 08:06 Klor-Con M20 PO 01/28/20 07:59 Not Given BIDM LANRE Ropinirole HCl 1 mg 12/29/19 21:00 01/04/20 20:58 Requip PO 01/28/20 20:59 1 mg HS LANRE Administration Simethicone 80 mg 12/31/19 09:17 01/02/20 09:11 Mylicon PO 01/30/20 09:16 80 mg Q6H PRN Administration Gas or Constipation Simvastatin 20 mg 12/29/19 21:00 01/04/20 20:58 Zocor PO 01/28/20 20:59 20 mg PM LANRE Administration Warfarin Sodium 5 mg 12/30/19 16:00 12/30/19 16:28 Coumadin PO 01/29/20 15:59 5 mg [id number] LANRE Administration Warfarin Sodium 2.5 mg 12/29/19 16:00 12/31/19 16:10 Coumadin PO 01/28/20 15:59 2.5 mg [id number] LANRE Administration Past Medical History Medical History Anemia (Chronic) Arthritis (Acute) CHF (congestive heart failure) (Chronic) Chronic GERD (Chronic) Chronic kidney disease, stage III (moderate) COPD (chronic obstructive pulmonary disease) (Chronic) Depression (Chronic) Diabetes (Resolved) Diabetic neuropathy (Chronic) Health care maintenance Hemorrhoids (Chronic) HTN (hypertension) (Chronic) Hyperlipidemia (Chronic) Hypothyroidism Left bundle branch block (Chronic) Lymphedema (Chronic) Mild mitral stenosis (Chronic) Mitral regurgitation (Chronic) Morbid obesity (Chronic) SHELIA on CPAP Osteopenia (Chronic) Proteus infection (Inactive) Restless leg syndrome (Chronic) Sleep apnea (Inactive) Stage III chronic kidney disease (Chronic) Urinary incontinence (Chronic) Venous insufficiency (Chronic) Vitamin D deficiency Vulvar cyst (Chronic) Vulvovaginitis (Chronic) Past Family History Family History Mother Diabetes Colon cancer Lung cancer Father Esophageal cancer Other Hypertension Denies family history of Ovarian cancer Prostate cancer Myocardial infarction Breast cancer Past Surgical History Surgical History H/O hysterectomy with oophorectomy History of cataract surgery History of cholecystectomy Social History Smoking Status: Never smoker Hx Alcohol Use: No Hx Substance Use: No substance use type: does not use Physical Exam Vital Signs Last Vital Signs Temp 36.8 C 01/05/20 07:07 Pulse 78 01/05/20 07:16 Resp 20 01/05/20 07:07 BP 141/76 H 01/05/20 11:20 Pulse Ox 92 01/05/20 07:07 Testing Laboratory Results 01/05/20 06:45 01/05/20 06:45 PT 12.9 Seconds (9.0-12.0) H 01/05/20 06:45 INR 1.2 (0.9-1.1) H 01/05/20 06:45 Hemoglobin A1c 8.3 % (4.5-5.6) H 12/30/19 07:30 12/28/19 20:09 Aerobic Blood Culture - Final Blood No growth in Aerobic bottle after 5 days. Anaerobic Blood Culture - Final No growth in Anaerobic bottle after 5 days. 12/28/19 19:34 Aerobic Blood Culture - Final Blood No growth in Aerobic bottle after 5 days. Anaerobic Blood Culture - Final No growth in Anaerobic bottle after 5 days. 01/05/20 01/05/20 11:26 06:14 POC Glucose 137 H 99
[2020-01-05] MEDS: SOD PHOSPHATE/SOD BIPHOSPHATE ENEMA 132 ML BTL PR SCH (12:08)
[2020-01-05] MEDS ORDERED: MIDAZOLAM HCL 1 MG/ML 2ML VIAL ONE (12:12)
[2020-01-05] MEDS ORDERED: MINERAL OIL 30 ML UDC ONE (12:16)
--- NOTE | 2020-01-05 12:37 | GI REPORT ---
Patient Name: Ruth Cisneros Procedure Date: 01/05/2020 12:14 PM Date of : 1945 Admit Type: Inpatient Age: 74 Gender: Female Attending MD: Tristan Jensen MD Procedure: Colonoscopy Providers: Tristan Jensen MD Referring MD: Dora Larsen Indications: Abnormal CT of the GI tract Medicines: Monitored Anesthesia Care Complications: No immediate complications. Estimated blood loss: None. Estimated Blood Loss: Estimated blood loss: none. Estimated blood loss: none. Procedure: Pre-Anesthesia Assessment: - Prior Anticoagulants: The patient has taken no previous anticoagulant or antiplatelet agents. - ASA Grade Assessment: IV - A patient with severe systemic disease that is a constant threat to life. After I obtained informed consent, the scope was passed under direct vision. Throughout the procedure, the patient's blood pressure, pulse, and oxygen saturations were monitored continuously. The Colonoscope was introduced through the anus with the intention of advancing to the cecum. The scope was advanced to the ascending colon before the procedure was aborted. Medications were given. The colonoscopy was performed without difficulty. The patient tolerated the procedure well. The quality of the bowel preparation was poor. Findings: The lumen of the colon (entire examined portion) was moderately dilated. There was no evidence of physical obstruction nor mass lesions. The colon was decompressed with suctioning. Procedure was aborted in the ascending colon due to the dilated redundant colon. Abdominal exam post procedure with notable improvement, much softer abdomen. Impression: - Preparation of the colon was poor. - Dilated in the entire examined colon. - No specimens collected. Recommendation: - [facility] to [facility] care. - Clear liquid diet today. -check KUB in the morning Tristan Jensen MD 01/05/2020 12:37:33 PM This report has been signed electronically. Note Initiated On: 01/05/2020 12:14 PM Number of Addenda: 0 I attest to the content of the Intraoperative Record and orders documented therein, exceptions below {[id number]}
--- NOTE | 2020-01-05 12:57 | Hospitalist Progress Note ---
Date of Service January 05, 2020 Assessment & Plan (1) Cellulitis: Ruth Cisneros is a 74 year old female with h/o DM II with CKD, asthma, heart failure, and peripheral vascular disease admitted for bilateral LE cellulitis and edema with nonhealing ulcers that failed outpatient therapy. Recent course complicated by moderate ileus, LBO (transition point at splenic flexure) and fluid balance. Bilateral lower extremity cellulitis with underlying venous stasis -12/28/19 R leg surface wound culture: many pseudomonas -wound cultures show Pseudomonas aeruginosa that is susceptible to Zosyn. ? nosocomial -Blood cultures no growth at 5 days -being followed by wound care, per their photos BLE edema has not improved -Continue IV Zosyn. Will reexamine wound tomorrow and decide on changing to PO abx (cipro for pseudomonas coverage) vs discontinue. -ecg today showed QTc 500. -External leg compression with daily wraps for venous stasis, continue upon d/c Ileus -01/05/20 colonoscopy impression: Preparation of the colon was poor. Dilated in the entire examined colon. No specimens collected. Clear liquid diet today. -repeat KUB in AM -had received ~2-3 doses of IV morphine over the first few days of admission -discontinued IV morphine PRNs on 01/01/20 due to concern for contribution to ileus -Did have two bowel movements on 01/01. Abdomen still severely distended with hyperactive bowel sounds. Continues to pass flatus. No BM last night. -CT abdomen/pelvis w/ PO/IV contrast showed small bowel and colonic dilatation with air fluid levels and a transition zone at the splenic flexure with no visualized obstructing mass -NG tube to low suction produced 1L over 24 hours of gastric dark brown fluid. -NG tube fell out morning of 01/04/20 and patient refused reinsertion due to discomfort. Reglan administered overnight w/ no relief of nausea. Zofran and Reglan held. Pepcid 10 mg IV q12 PRN. -general surgery consulted. Supratherapeutic INR, resolved -hold warfarin. -vitamin K 5 mg administered 01/04/20 -INR: 1.3 on 01/04/20. 1/4 on 01/05/20. Concern of aspiration -speech therapy signed off -nutrition consulted because NPO > 3 days: when medically appropriate, ADAT to low fiber, heart healthy, CHO. Continue to monitor daily wts and I/O's; Lytes repletion PRN. IVF while NPO SONIA on CKD 3-4 -Creatinine 2.33->2.55->2.26 (baseline is 1.7) -Per Nephro consult: -increase Lasix to 80 mg IV twice a day, aim for net negative around 0.5-1 liter per day -continue Lasix 80 mg IV BID -consider scheduled dose of bronchodilator instead of p.r.n. -continue on IV Venofer - Monitor renal function - Potassium 3.4 today; will replete Acute exacerbation of HFpEF with underlying right heart dysfunction -Patient has hx of heart failure with preserved EF, being managed with bumetanide 4 mg BID at home -Patient reports that she has not been taking her diuretic as instructed recently, which may have triggered the BLE edema -24 hour ([id number]) Narayan ~1.7L. Intake via IV ~1.6L. Dyspnea at rest -improved, patient reports that she has not always been using nasal cannula -bilat rhonchi on physical exam, unchanged from previous day -CXR consistent mild congestive heart failure -likely due to fluid overload secondary to heart failure and recent lapse in diuretic therapy -wean off oxygen as tolerated Persistent Asthma -Continue duonebs PRN -No wheezing today, clinically improved -Continue daily Breo Ellipta. Type II DM -hyperglycemic in the low 300s during first 2 days of admission -Pharmacy managing w/ basal doses + SSI. Sugars now in the ~90s-150 range. HTN -Continue home labetalol 600mg BID SHELIA -Patient uses home CPAP but has declined use in the hospital -Counseled today on the importance of continuing CPAP while hospitalized Normocytic Anemia -Hgb: 11.6, Hct 37.2%, MCV 83.0, stable -Likely anemia of chronic disease secondary to CKD -CBC daily Hypothyroidism -Continue home levothyroxine 200mcg daily OA bilateral knees -Continue diclofenac gel BID to affected areas -Ambulate to chair daily GERD -Patient on omeprazole 20mg daily at home -While inpatient- pantoprazole 40mg daily Hyperlipidemia -Continue home simvastatin 20mg daily History of anxiety disorder -Anxiety improves with improving respiratory status -Continue home escitalopram Code Status: full FEN/GI: NPO. LR 50mL/hr DVT ppx: Warfarin held Dispo: Med/Surg floor. COVID test ordered for possible SNF placement. (2) 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, with long- term current use of insulin: (3) Obstructive sleep apnea syndrome: (4) Asthma: (5) CHF (congestive heart failure): (6) Hypokalemia: (7) Chronic GERD: (8) Hyperlipidemia: (9) Anemia: (10) Dyspnea: Admission and Anticipated Discharge Date Admission Date: December 28, 2019 Supervising Physician Co-Signing Physician Notes I personally examined the patient and verified all johansen points of history and exam, discussed case, and agree with decision making with Dr Mendes. no further vomiting. belly feeling better, tolerating clears OK just going slow out of caution vitals noted nad heent nc at mmm breathing unlabored no accessory muscles. b/l LE venous stasis changes no tracking erythema dressed mid foss but no erythema noted venous stasis cellulitis - improved - has completed 7 days of zosyn - will eval wounds tomorrow at dressing change to determine ?needing ongoing abx or just local care ileus - no obstruction on scope. bowel funciton appears to be improving INR reversed. follow otherwise as above Subjective AM: R flank bloating/gas feeling. L chest burping/heartburn. No current nausea. No abd pain. PM: bloating symptoms decreased and feels better s/p colonoscopy. Tolerating small amounts of clear liquid. Review of Systems 2 Review of Systems: Constitutional: Denies fever, chills Eyes: Denies vision changes Cardiovascular: Denies chest pain Respiratory: Denies shortness of breath Gastrointestinal: Denies nausea, vomiting, constipation, diarrhea Genitourinary: Denies urinary symptoms including dysuria Musculoskeletal: Denies weakness, muscle aches/pain, joint aches/pain Neurological: Denies headache, numbness, tingling, focal weakness Physical Exam Physical Exam: General: A&Ox3. NAD. Cooperative. HEENT: Atraumatic, normocephalic. EOMI Pulm: Bilat rhonchi/deep wheezes. Cardiac: RRR, -mrg. Dorsalis pulses intact and symmetrical. Abdominal: Soft, distended. Nontender to palpation. MSK: Dressings at bilat shins c/d/i. Results & Data Results & Data ([facility]) Vital Signs (Past 12 Hours) Vital Signs Temp Pulse Pulse Resp BP Pulse Ox 01/05/20 12:40 84 16 152/85 H 93 01/05/20 11:54 36.8 C 86 28 H 145/83 H 93 01/05/20 11:20 141/76 H 01/05/20 07:16 78 01/05/20 07:07 36.8 C 86 20 175/81 H 92 01/05/20 03:08 36.8 C 87 22 168/84 H 92 (1) CHF (congestive heart failure) Heart failure chronicity: chronic Heart failure type: diastolic Qualified Code(s): I50.32 - Chronic diastolic (congestive) heart failure
--- NOTE | 2020-01-05 13:05 | Surgery Progress Note ---
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 There is no evidence of mechanical bowel obstruction There is no evidence of peritonitis. No indication for surgical intervention at this time. We will sign off. Please let us know if there is anything else we can do to be of service. Subjective She denies abdominal pain, nausea and vomiting Underwent colonoscopy today that demonstrated pseudoobstruction Physical Exam Gastrointestinal (Abdomen): Inspection/Auscultation: abdomen not distended Percussion/Palpation: abdomen soft; abdomen nontender Results & Data Vital Signs (Past 12 Hours) Vital Signs Temp Pulse Pulse Resp BP Pulse Ox 01/05/20 12:55 80 20 158/72 H 92 01/05/20 12:40 84 16 152/85 H 93 01/05/20 11:54 36.8 C 86 28 H 145/83 H 93 01/05/20 11:20 141/76 H 01/05/20 07:16 78 01/05/20 07:07 36.8 C 86 20 175/81 H 92 01/05/20 03:08 36.8 C 87 22 168/84 H 92 (1) Abdominal pain Abdominal location: generalized Qualified Code(s): R10.84 - Generalized abdominal pain
[2020-01-05] MEDS ORDERED: PIPERACILL/TAZOBAC CONSULT ACTIVE PRN (15:46)
--- NOTE | 2020-01-05 16:44 | Electrocardiogram Report ---
Test Reason : Blood Pressure : / mmHG Vent. Rate : 094 BPM Atrial Rate : 094 BPM P-R Int : 188 ms QRS Dur : 138 ms QT Int : 400 ms P-R-T Axes : 046 004 140 degrees QTc Int : 500 ms Normal sinus rhythm Left bundle branch block Abnormal ECG When compared with ECG of 28-DEC-2019 19:42, Premature ventricular complexes are no longer Present T wave inversion now evident in Lateral leads Confirmed by Antonio Torres ([id number]) on 01/05/2020 4:44:27 PM Referred By: Dora Larsen Confirmed By:Kenny Torres
[2020-01-05] MEDS ORDERED: Nursing to Pharmacy Communication SCH (16:45)
--- NOTE | 2020-01-05 17:57 | Billing Data ---
Date of Service January 05, 2020 Coding Level of Care Code 45017 Subseq Hosp Care Lvl 2
[2020-01-05] MEDS ORDERED: POTASSIUM CHLORIDE 20 MEQ/15 ML UDC PO STA (19:05)
[2020-01-05] MEDS: ASPIRIN 81 MG ECTAB PO SCH (20:18)
[2020-01-05] MEDS: SIMVASTATIN 20 MG TAB PO SCH (20:18)
[2020-01-05] MEDS: ROPINIROLE HCL 1 MG TABLET PO SCH (20:18)
[2020-01-06] MEDS: PIPERACILLIN/TAZOBACTAM 4.5 GM in DEXTROSE 5% 100 ML IV SCH ×3 (00:06→15:51)
[2020-01-06 05:53] LABS: Hematocrit (blood only) 34.9 % (37-47); Hemoglobin 10.6 g/dL (12.0-16.0); Mean Corpuscular Hemoglobin 25.7 pg (25-34); Mean Corpuscular Hgb Conc 30.4 g/dL (32-36); Mean Corpuscular Volume 84.5 fL (80-100); Mean Platelet Volume 9.7 fL (7.4-10.4); Platelet Count 562 K/uL (130-400); RDW Standard Deviation 52.2 fL (36.4-46.3); Red Blood Count 4.13 M/uL (4.2-5.4); White Blood Count 12.95 K/uL (4.8-10.8)
[2020-01-06] MEDS: LEVOTHYROXINE SODIUM 200 MCG TABLET PO SCH (06:10)
[2020-01-06] MEDS: LEVOTHYROXINE SODIUM 75 MCG TABLET PO SCH (06:10)
[2020-01-06 06:22] LABS: Albumin Level 2.1 gm/dl (3.4-5.0); BUN Creatinine Ratio 32.9 (10-20); Creatinine Clr Calc Pharmacy 30.6 ml/min; Est GFR (Non-African American) 19.9; Magnesium 2.3 mg/dl (1.8-2.4); Potassium 3.4 mmol/L (3.5-5.1)
[2020-01-06] MEDS: ESCITALOPRAM OXALATE 10 MG TAB PO SCH (07:46)
[2020-01-06] MEDS: FERROUS SULFATE 325 MG TAB PO SCH (07:46)
[2020-01-06] MEDS: allopurinoL 100 MG TAB PO SCH (07:46)
[2020-01-06] MEDS: PANTOprazole 40 MG TAB PO SCH (07:46)
[2020-01-06] MEDS: POTASSIUM CHLORIDE 20 MEQ TABCR PO SCH ×2 (07:46→17:40)
[2020-01-06] MEDS: LABETALOL HCL 300 MG TAB PO SCH ×2 (07:46→20:22)
[2020-01-06] MEDS: AMLODIPINE BESYLATE 5 MG TAB PO SCH (07:46)
[2020-01-06] MEDS: FLUTICASONE/VILANTEROL 200/25MCG 14 PUFFS/INHALER INH SCH (07:47)
[2020-01-06] MEDS: INSULIN GLARGINE SOLOSTAR 100 UNITS/ML 3 ML PEN SC SCH ×2 (07:48→20:22)
[2020-01-06] MEDS: POLYETHYLENE (MIRALAX) 17 GM PACK PO SCH (07:49)
[2020-01-06] MEDS: DICLOFENAC SOD 1% GEL 100 GM TUBE EXT SCH ×2 (07:49→20:24)
[2020-01-06] MEDS: INSULIN ASPART 100 UNITS/ML 3 ML PEN SC SCH ×4 (07:52→20:24)
[2020-01-06] MEDS ORDERED: PANTOprazole 40 MG TAB PO STA (08:18)
[2020-01-06] MEDS: SOD PHOSPHATE/SOD BIPHOSPHATE ENEMA 132 ML BTL PR SCH (08:19)
--- NOTE | 2020-01-06 08:36 | XRay Report ---
KUB HISTORY: Fall up study in a patient with reported ileus follow-up on ileus COMPARISON: CT abdomen and pelvis 01/03/2020, KUB 01/02/2020 FINDINGS: Persistent dilated air-filled loops of large and small bowel with gaseous distention of the stomach. Distended bowel loops measure up to approximately 4.0 cm. No renal calculi. No ureteral ca lculi. No pneumoperitoneum or pneumatosis. Cardiomegaly. No fracture. IMPRESSION: Persistent gaseous distention of the stomach, small and large bowel suggestive of distal obstruction versus ileus. Continued follow-up recommended. ACT 112: Negative or not required by law. The above report was generated using voice recognition software. It may contain grammatical, syntax o r spelling errors. Electronically signed by: Aguilar Chávez M.D. 01/06/2020 8:35 AM
[2020-01-06] MEDS: IRON SUCROSE 200 MG in 0.9 % SODIUM CHLORIDE 100 ML IV SCH (08:44)
--- NOTE | 2020-01-06 10:28 | Nephrology Progress Note ---
Date of Service January 06, 2020 Assessment & Plan (1) Acute kidney injury: Terrie has stage III CKD with baseline creatinine around 1.7-2, admitted to the hospital with volume overload and congestive heart failure as she seems to have stopped her home diuretics for few days prior to admission. On admission he was found to have SONIA and volume overload, started back on IV diuretics. Creatinine has been staying relatively stable around 2.3-2.4, electrolyte acceptable. Also found to have right leg cellulitis with Pseudomonas aeruginosa growing. Blood culture negative. Has chronic anemia with iron deficiency. Hemoglobin has been relatively stable. Renal function electrolyte relatively stable without much changes. Has been having decent urine output without diuretics last 2 days although net positive. --continue to hold Lasix for now. --continue on amlodipine 5 milligrams p.o. daily and increase dose as needed --strict I/O -- continue on IV Venofer --left arm nephrology precaution, no indication for renal replacement therapy at this time however patient has multiple risk factor for worsening of renal function and needing dialysis in future. Will follow Admission and Anticipated Discharge Date Admission Date: December 28, 2019 Subjective Terrie was seen and examined in her room this morning. she is doing much better today after colonoscopy and decompression of colon Yesterday. Appetite improved. Decent urine output although overall net positive. shortness of breath improved Renal function and electrolyte relatively stable. blood pressu re better controlled. Review of Systems Review of Systems: All systems reviewed & are unremarkable except as noted in HPI & below Physical Exam Constitutional: + ill appearing and + morbidly obese; no acute distress Respiratory: + respiratory distress and able to speak in complete sentences Auscultation: + crackles and + wheezes Cardiovascular: RRR, no murmur, no edema Gastrointestinal (Abdomen): Inspection/Auscultation: normal bowel sounds Percussion/Palpation: abdomen soft; abdomen nontender Neurologic: moves all extremities and awake; not confused Psychiatric: A+Ox3, euthymic affect Results & Data ([facility]) Vital Signs (Past 12 Hours) Vital Signs Temp Pulse Pulse Resp BP Pulse Ox 01/06/20 09:53 68 01/06/20 07:10 36.5 C 69 20 141/71 H 93 01/06/20 03:26 36.5 C 74 22 131/74 94 01/06/20 00:16 78 01/05/20 23:30 36.5 C 78 24 125/67 93 PG Care Time/CCT Total # of Minutes Spent Total Time Spent with Patient: Total time spent is greater than 50% in coordination of care (as documented) at patient's floor/unit and/or counseling patient: Coding Level of Care Code 93632 Subseq Hosp Care Lvl 3 Diagnoses Acute kidney injury N17.9
[2020-01-06] MEDS ORDERED: PANTOprazole 40 MG TAB PO ONE (12:15)
--- NOTE | 2020-01-06 12:25 | Gastroenterology Progress Note ---
Date of Service January 06, 2020 Assessment & Plan (1) Colonic pseudoobstruction: -Continue conservative management; Given Xray findings, can consider rectal tube if worsening -Pseudo obstruction can return despite decompression; if this is the case and patient is not responding to conservative therapy, we could potentially consider Neostigmine Present on Admission?: Yes Admission and Anticipated Discharge Date Admission Date: December 28, 2019 Supervising Physician Co-Signing Physician Notes I personally evaluated the patient and agree with the findings as documented by Karen Keller, PAC Exam: abd: mildly stiff, nt, nd, obese continue to obtain daily KUBs, conservative management clear liquid diet and encourage bms and flatus. If recurs/worsens will consider neostigmine and/or rectal tube. 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 Subjective Follow-up from colonic pseudo obstruction that was decompressed on 01/05/20. Patient reports she is feeling much better today. She is moving her bowels and reports flatus. She denies any new complaints today. An abdominal x ray indicated persistent findings of distention and dilatation consistent with colonic obstruction. Review of Systems Constitutional: no fever and no chills Respiratory: no cough Cardiovascular: no chest pain Gastrointestinal: + diarrhea/loose stools; no abdominal pain and no bloating Endocrine: + fatigue Physical Exam Constitutional: + morbidly obese Neck: normal visual inspection Respiratory: normal respiratory effort; no respiratory distress Gastrointestinal (Abdomen): Inspection/Auscultation: + abdomen distended and + hypoactive bowel sounds Percussion/Palpation: + abdomen tender and + abdomen firm Musculoskeletal: Head/Neck/Chest: normocephalic Skin: + rash and + ulcer Psychiatric: Orientation: alert and oriented x 3 Results & Data Results & Data ([facility]) Vital Signs (Past 12 Hours) Vital Signs Temp Pulse Pulse Resp BP BP Pulse Ox 01/06/20 11:09 36.4 C L 64 20 116/66 93 01/06/20 09:53 68 01/06/20 07:10 36.5 C 69 20 141/71 H 93 01/06/20 03:26 36.5 C 74 22 131/74 94 PG Care Time/CCT Total # of Minutes Spent Total Time Spent with Patient: Total time spent is greater than 50% in coordination of care (as documented) at patient's floor/unit and/or counseling patient: Coding Level of Care Code 49403 Subseq Hosp Care Lvl 3 Diagnoses Colonic pseudoobstruction K59.8
--- NOTE | 2020-01-06 12:25 | Pharmacy Report ---
Pharmacy Glycemic Short Note 2 - Date of Service January 06, 2020 - Glycemic Short BSG Results (Last 24 hours): 01/05/20 01/05/20 01/06/20 16:41 20:14 05:31 Glucose 157 H POC Glucose 142 H 158 H 01/06/20 01/06/20 07:29 11:34 Glucose POC Glucose 159 H 191 H OUTPATIENT ANTIDIABETIC REGIMEN: * Glargine 100units Q PM * Novolog 20 units w/ meals + sliding scale, up to 80 units per day * A1c = 8.3% 12/30/2019 ASSESSMENT: 01/05: * Ruth received 88 units of insulin yesterday (65 units basal and 23 units bolus) * Fasting BSG increased from 99 -> 157 mg/dL after significant reduction in Lantus dose yesterday. Will conservatively increase Lantus scale. * Post prandial BSGs were at goal yesterday. Pt has been advanced to a clear liquid diet. Anticipate increased Novolog requirements. Will need to reassess tomorrow. 01/04: * Patient received 80 units of insulin yesterday, all basal: * This is ~ 30% decreased from the previous day's total insulin dose * BSGs ranged 83 - 97 mg/dL * No reports of patient having symptoms of low blood sugar. * She remains NPO for the 4th consecutive day. She is scheduled to have a colonoscopy this afternoon; however, she could not tolerate the bowel prep secondary to nausea. * Fasting BSG this AM was 99 mg/dL. PM Lantus dose was reduced even further yesterday evening to 30-40 units depending on BSG. Will continue with current basal dosing BID as patient's max possible dose today would be the same as yesterday (80 units) and min dose would result in a 25% reduction. * She was started on a D5+1/2NS at 50 mL/hr by nephrology today. Informed RN that this will provide 15 gm dextrose in every 6 hours which will need covered with Novolog carb ratio. 01/03: * Patient received 113 units of insulin yesterday: * 110 units of basal + 3 units of bolus * BSGs ranged from 98 - 160 mg/dL * BSGs consistently decreased throughout the day yesterday despite basically no correctional/prandial insulin (patient remains NPO). * Fasting BSG this AM was 83 mg/dL. Decreased basal dose this AM by ~15%. Will decrease evening basal dose per scale. * No change to Novolog parameters at this time. 01/02: * Type 2 diabetic admitted yesterday due to worsening cellulitis of lower extremities and non-healing ulcerations * Patient has been followed by glycemic control service several times in the past year * Patient received 129 units of insulin yesterday: * 105 units of basal * 24 units of bolus (indicates correction only - pt remains NPO) * BSGs ranged from 116 - 244 mg/dL * Fasting BSG is above goal. Will increase Lantus by ~15%. * Novolog correction factor was tightened from 10 to 8 yesterday. Improvement in post prandials noted. Continue same for now. PLAN FOR INPATIENT GLYCEMIC CONTROL: * Basal insulin * Lantus 35-45 units SQ BID (see eMAR for further details) * Bolus insulin * NovoLog per scale ACHS * Goal Range: Low 110 mg/dL - High 140 mg/dL * Correction Factor: 8 mg/dL/unit * Nutritional / Prandial insulin per carb ratio of 1 unit per 4 grams CHO consumed PLAN FOR DISCHARGE: * A1c 8.3%, slightly above goal * F/u with outpatient provider for insulin adjustments as needed
[2020-01-06] MEDS ORDERED: FAMOTIDINE 10 MG TABLET PO ONE (13:39)
[2020-01-06] MEDS ORDERED: CALCIUM CARBONATE 500 MG CHEWABLE TAB PO PRN (13:44)
[2020-01-06] MEDS ORDERED: FAMOTIDINE 10 MG in SYRINGE 1.5 ML IV ONE (13:45)
[2020-01-06] MEDS ORDERED: FAMOTIDINE 10 MG in SYRINGE 3 ML IV ONE (13:45)
--- NOTE | 2020-01-06 16:38 | Hospitalist Progress Note ---
Date of Service January 06, 2020 Assessment & Plan (1) Cellulitis: Ruth Cisneros is a 74 year old female with h/o DM II with CKD, asthma, heart failure, and peripheral vascular disease admitted for bilateral LE cellulitis and edema with nonhealing ulcers that failed outpatient therapy. Recent course complicated by moderate ileus, LBO (transition point at splenic flexure) and fluid balance. Bilateral lower extremity cellulitis with underlying venous stasis -12/28/19 R leg surface wound culture: many pseudomonas -wound cultures show Pseudomonas aeruginosa that is susceptible to Zosyn. ? nosocomial -Blood cultures no growth at 5 days -IV Zosyn discontinued today. Wound care consulted today, bandages removed. Consider reapplying compression bandages/wraps for venous stasis w/ continuation upon d/c. Ileus -01/05/20 colonoscopy impression: Preparation of the colon was poor. Dilated in the examined region of the colon (ascending only). No specimens collected. Clear liquid diet yesterday, patient tolerated -01/06/20 repeat KUB showed continued distension of small and large bowel, suggestive of ileus vs. distal obstruction -01/06/20 GI progress note: colonic pseudo obstruction, continue conservative management -had received ~2-3 doses of IV morphine over the first few days of admission -discontinued IV morphine PRNs on 01/01/20 due to concern for contribution to ileus -Did have two bowel movements on 01/01. Abdomen still severely distended with hyperactive bowel sounds. Continues to pass flatus. BM x1 overnight. -CT abdomen/pelvis w/ PO/IV contrast showed small bowel and colonic dilatation with air fluid levels and a transition zone at the splenic flexure with no visualized obstructing mass -NG tube to low suction produced 1L over 24 hours of gastric dark brown fluid. -NG tube fell out morning of 01/04/20 and patient refused reinsertion due to discomfort. Reglan administered overnight w/ no relief of nausea. Zofran and Reglan held. Pepcid 10 mg IV q12 PRN. -general surgery consulted. Supratherapeutic INR, resolved -hold warfarin. -INR: 1.3 on 01/04/20. 1.4 on 01/05/20. Concern of aspiration -speech therapy signed off -nutrition consulted because NPO > 3 days: when medically appropriate, ADAT to low fiber, heart healthy, CHO. Continue to monitor daily wts and I/O's; Lytes repletion PRN. 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 -continue on IV Venofer - Monitor renal function - Potassium 3.4 today; replete w/ potassium chloride 20meq PO BID, now tolerating PO Acute exacerbation of HFpEF with underlying right heart dysfunction -Patient has hx of heart failure with preserved EF, being managed with bumetanide 4 mg BID at home -Patient reports that she has not been taking her diuretic as instructed recently, which may have triggered the BLE edema -24 hour Narayan ~0.9L. Intake (IV+PO) ~1.1L. Dyspnea at rest -improved, patient reports that she has not always been using nasal cannula -bilat rhonchi on physical exam, unchanged from previous day -CXR consistent mild congestive heart failure -likely due to fluid overload secondary to heart failure and recent lapse in diuretic therapy -wean off oxygen as tolerated Persistent Asthma -Continue duonebs PRN -Lung exam unchanged from prior days, some rhonchi -Continue daily Breo Ellipta. Type II DM -hyperglycemic in the low 300s during first 2 days of admission -Pharmacy managing w/ basal doses + SSI. Sugars now in the mid to upper 100s HTN -Continue home labetalol 600mg BID SHELIA -Patient uses home CPAP but has declined use in the hospital -Counseled today on the importance of continuing CPAP while hospitalized Normocytic Anemia -Hgb: 11.6->10.6, Hct 37.2%->34.9%, normocytic, stable -Likely anemia of chronic disease secondary to CKD -CBC daily Hypothyroidism -Continue home levothyroxine 200mcg daily OA bilateral knees -Continue diclofenac gel BID to affected areas -Ambulate to chair daily GERD -Patient on omeprazole 20mg daily at home -While inpatient- pantoprazole 40mg daily Hyperlipidemia -Continue home simvastatin 20mg daily History of anxiety disorder -Anxiety improves with improving respiratory status -Continue home escitalopram Code Status: full FEN/GI: NPO. LR 50mL/hr DVT ppx: Warfarin held Dispo: Med/Surg floor. COVID test ordered for possible placement dispo to rehab, auth pending; sample collected on 01/05/20 at 2100. (2) 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, with long- term current use of insulin: (3) Obstructive sleep apnea syndrome: (4) Asthma: (5) CHF (congestive heart failure): (6) Hypokalemia: (7) Chronic GERD: (8) Hyperlipidemia: (9) Anemia: (10) Dyspnea: Admission and Anticipated Discharge Date Admission Date: December 28, 2019 Supervising Physician Co-Signing Physician Notes I personally examined the patient and verified all johansen points of history and exam, discussed case, and agree with decision making with Dr Mendes. feeling better overall just indigestion. legs doing much better vitals noted nad heent nc at mmm breathing unlabored no accessory muscles. b/l LE venous stasis changes no erythema no significant ulcers - dressings removed all appears simply c/w venous stasis changes venous stasis cellulitis - improved - infection appears resolved. ok off obx. ileus - no obstruction on scope. improving - continue supportive care. suspect indigestion she's currently feeling is just related to this. otherwise as above Subjective Patient's complaint today is heartburn. PPI did not provide relief. She is burping and passing flatus. BMx1 overnight. Abdominal bloating sensation is mild and improved s/p colonoscopy yesterday. No fever/chills, nausea/vomiting, chest pain, or new dyspnea. She is tolerating PO liquids. Review of Systems Review of Systems: Constitutional: Denies fever, chills, weight change Cardiovascular: Denies chest pain, chest pressure Respiratory: Denies shortness of breath, difficulty breathing Gastrointestinal: Denies abdominal pain, vomiting, constipation, diarrhea Neurological: Denies headache, numbness, tingling, focal weakness Physical Exam Physical Exam: General: A&Ox3. NAD. Cooperative. HEENT: Atraumatic, normocephalic. Pulm: Bilat rhonchi/deep wheezes. Cardiac: RRR, -mrg. Abdominal: Soft, distended. No tenderness to palpation MSK: Dressings removed. Some bilat LE edema, nontender. Venous stasis changes with areas of dried blood/scab wounds, but no active bleeding or drainage. Results & Data Results & Data ([facility]) Vital Signs (Past 12 Hours) Vital Signs Temp Pulse Pulse Resp BP BP Pulse Ox 01/06/20 15:38 36.4 C L 71 20 105/64 94 01/06/20 11:09 36.4 C L 64 20 116/66 93 01/06/20 09:53 68 01/06/20 07:10 36.5 C 69 20 141/71 H 93 Resident Activity Tracking Resident Involvement: Resident Care Provided Care Provided: Adult Hospital Medicine (1) CHF (congestive heart failure) Heart failure chronicity: chronic Heart failure type: diastolic Qualified Code(s): I50.32 - Chronic diastolic (congestive) heart failure
--- NOTE | 2020-01-06 17:43 | Billing Data ---
Date of Service January 06, 2020 Coding Level of Care Code 25566 Subseq Hosp Care Lvl 2
[2020-01-06] MEDS ORDERED: WARFARIN SOD 5 MG TAB PO ONE (18:30)
[2020-01-06] MEDS: SIMVASTATIN 20 MG TAB PO SCH (20:22)
[2020-01-06] MEDS: ASPIRIN 81 MG ECTAB PO SCH (20:22)
[2020-01-06] MEDS: ROPINIROLE HCL 1 MG TABLET PO SCH (20:22)
[2020-01-06] MEDS: FAMOTIDINE 10 MG TABLET PO PRN (21:42)
[2020-01-06] MEDS: SIMETHICONE 80 MG CHEW PO PRN (22:05)
[2020-01-06] MEDS ORDERED: SODIUM CHLORIDE 0.9% 1000ML 500 ML IV ONE (23:14)
[2020-01-07] MEDS: LEVOTHYROXINE SODIUM 75 MCG TABLET PO SCH (06:23)
[2020-01-07] MEDS: LEVOTHYROXINE SODIUM 200 MCG TABLET PO SCH (06:23)
[2020-01-07 07:29] LABS: Hematocrit (blood only) 35.7 % (37-47); Hemoglobin 10.9 g/dL (12.0-16.0); Mean Corpuscular Hgb Conc 30.5 g/dL (32-36); Mean Corpuscular Volume 85.2 fL (80-100); Platelet Count 567 K/uL (130-400); RDW Coefficient of Variation 17.3 % (11.5-14.5); RDW Standard Deviation 52.7 fL (36.4-46.3); Red Blood Count 4.19 M/uL (4.2-5.4); White Blood Count 13.69 K/uL (4.8-10.8)
[2020-01-07 07:45] LABS: INR 1.3 (0.9-1.1); Prothrombin Time 13.1 Seconds (9.0-12.0)
[2020-01-07 07:57] LABS: Albumin Level 2.2 gm/dl (3.4-5.0); BUN Creatinine Ratio 29.2 (10-20); Calcium 9.6 mg/dl (8.5-10.1); Creatinine Clr Calc Pharmacy 24.8 ml/min; Est GFR (African American) 17.8; Est GFR (Non-African American) 15.4; Potassium 3.1 mmol/L (3.5-5.1)
[2020-01-07 08:00] LABS: Phosphorus 3.8 mg/dl (2.5-4.9)
[2020-01-07] MEDS: LABETALOL HCL 300 MG TAB PO SCH ×2 (08:20→20:08)
[2020-01-07] MEDS: ESCITALOPRAM OXALATE 10 MG TAB PO SCH (08:20)
[2020-01-07] MEDS: FERROUS SULFATE 325 MG TAB PO SCH (08:20)
[2020-01-07] MEDS: AMLODIPINE BESYLATE 5 MG TAB PO SCH (08:20)
[2020-01-07] MEDS: allopurinoL 100 MG TAB PO SCH (08:20)
[2020-01-07] MEDS: SIMETHICONE 80 MG CHEW PO PRN (08:21)
[2020-01-07] MEDS: ALUMINUM/MAGNESIUM/SIMETH (MAALOX MAX) 30 ML UDC PO PRN ×2 (08:27→21:46)
[2020-01-07] MEDS: DICLOFENAC SOD 1% GEL 100 GM TUBE EXT SCH ×2 (08:28→20:05)
[2020-01-07] MEDS: POLYETHYLENE (MIRALAX) 17 GM PACK PO SCH (08:29)
[2020-01-07] MEDS: FLUTICASONE/VILANTEROL 200/25MCG 14 PUFFS/INHALER INH SCH (08:31)
[2020-01-07] MEDS: POTASSIUM CHLORIDE 20 MEQ TABCR PO SCH ×2 (08:32→16:39)
[2020-01-07] MEDS: INSULIN GLARGINE SOLOSTAR 100 UNITS/ML 3 ML PEN SC SCH ×2 (08:34→21:40)
[2020-01-07] MEDS: INSULIN ASPART 100 UNITS/ML 3 ML PEN SC SCH ×4 (08:34→21:41)
--- NOTE | 2020-01-07 09:42 | Gastroenterology Progress Note ---
Date of Service January 07, 2020 Assessment & Plan (1) Colonic pseudoobstruction: Patient with refractory pseudoobstruction despite endoscopic decompression & conservative measures. Patient will need to be transferred to an ICU bed to administer Neostigmine. I will discuss these logistics further with the hospitalist provider, but will plan for 2 gm total to be slowly administered with telemetry monitoring. When these transfer arrangements have been made, please contact extension [phone] Jensen to be present at bedside at the time of chief of internal medicine. Thank you for allowing us to participate in the care of this patient. If you should have any further questions or concerns, do not hesitate to contact us at extension [phone] or [phone]. Admission and Anticipated Discharge Date Admission Date: December 28, 2019 Supervising Physician Co-Signing Physician Notes I personally evaluated the patient and agree with the findings as documented by Karen Keller, PAC Exam: abd: mildly stiff, nt, distended neostigmine 2 mg administered at the bedside over 5 minutes with playground monitor, atropine .5 mg also given. Patient had prompt bowel movements in response to the medication. repeat KUB tomorrow morning to re-evaluate, NPO for now. Subjective Follow-up from colonic pseudo obstruction that was decompressed on 01/05/20. Despite feeling better on 01/05, she is reporting abdominal discomfort, bloating, heartburn, and further distention of her abdomen. On 01/05, an abdominal x ray indicated persistent findings of distention and dilatation consistent with colonic obstruction. She is reporting flatus and loose stools. Review of Systems Gastrointestinal: + diarrhea/loose stools; no abdominal pain and no bloating Endocrine: + fatigue Physical Exam Constitutional: + morbidly obese Eyes: PERRL, conjunctivae normal, anicteric sclerae Neck: normal visual inspection Respiratory: normal respiratory effort; no respiratory distress Cardiovascular: Rate/Rhythm: regular rate Gastrointestinal (Abdomen): Inspection/Auscultation: + abdomen distended and + hypoactive bowel sounds Percussion/Palpation: + abdomen tender and + abdomen firm Musculoskeletal: Head/Neck/Chest: normocephalic Skin: + rash and + ulcer Psychiatric: Orientation: alert and oriented x 3 Affect: + depressed affect Results & Data Results & Data ([facility]) Vital Signs (Past 12 Hours) Vital Signs Temp Pulse Pulse Resp BP BP Pulse Ox 01/07/20 07:26 70 01/07/20 07:11 36.8 C 71 20 133/68 95 01/07/20 03:03 36.7 C 73 21 127/70 97 01/07/20 00:55 65 01/06/20 23:32 36.5 C 64 21 112/67 95 PG Care Time/CCT Total # of Minutes Spent Total Time Spent with Patient: Total time spent is greater than 50% in coordination of care (as documented) at patient's floor/unit and/or counseling patient: Coding Level of Care Code 13307 Subseq Hosp Care Lvl 3 Diagnoses Colonic pseudoobstruction K59.8
[2020-01-07] MEDS: SOD PHOSPHATE/SOD BIPHOSPHATE ENEMA 132 ML BTL PR SCH (09:48)
--- NOTE | 2020-01-07 10:23 | Pharmacy Report ---
Pharmacy Glycemic Short Note 2 - Date of Service January 07, 2020 - Glycemic Short BSG Results (Last 24 hours): 01/06/20 01/06/20 01/06/20 11:34 16:40 20:09 Glucose POC Glucose 191 H 183 H 135 H 01/07/20 01/07/20 01/07/20 04:18 06:42 07:40 Glucose 123 H POC Glucose 107 H 138 H OUTPATIENT ANTIDIABETIC REGIMEN: * Glargine 100units Q PM * Novolog 20 units w/ meals + sliding scale, up to 80 units per day * A1c = 8.3% 12/30/2019 ASSESSMENT: 01/06: * No significant changes in glycemic control * Fasting BSG of 138 mg/dL is near goal. Patient continues to require 70-80 units of Lantus per day. * Post prandial BSGs are acceptable. Patient tolerating a clear liquid diet. No change in Novolog today. 01/05: * Ruth received 88 units of insulin yesterday (65 units basal and 23 units bolus) * Fasting BSG increased from 99 -> 157 mg/dL after significant reduction in Lantus dose yesterday. Will conservatively increase Lantus scale. * Post prandial BSGs were at goal yesterday. Pt has been advanced to a clear liquid diet. Anticipate increased Novolog requirements. Will need to reassess tomorrow. 01/04: * Patient received 80 units of insulin yesterday, all basal: * This is ~ 30% decreased from the previous day's total insulin dose * BSGs ranged 83 - 97 mg/dL * No reports of patient having symptoms of low blood sugar. * She remains NPO for the 4th consecutive day. She is scheduled to have a colonoscopy this afternoon; however, she could not tolerate the bowel prep secondary to nausea. * Fasting BSG this AM was 99 mg/dL. PM Lantus dose was reduced even further yesterday evening to 30-40 units depending on BSG. Will continue with current basal dosing BID as patient's max possible dose today would be the same as yesterday (80 units) and min dose would result in a 25% reduction. * She was started on a D5+1/2NS at 50 mL/hr by nephrology today. Informed RN that this will provide 15 gm dextrose in every 6 hours which will need covered with Novolog carb ratio. 01/03: * Patient received 113 units of insulin yesterday: * 110 units of basal + 3 units of bolus * BSGs ranged from 98 - 160 mg/dL * BSGs consistently decreased throughout the day yesterday despite basically no correctional/prandial insulin (patient remains NPO). * Fasting BSG this AM was 83 mg/dL. Decreased basal dose this AM by ~15%. Will decrease evening basal dose per scale. * No change to Novolog parameters at this time. 01/02: * Type 2 diabetic admitted yesterday due to worsening cellulitis of lower extremities and non-healing ulcerations * Patient has been followed by glycemic control service several times in the past year * Patient received 129 units of insulin yesterday: * 105 units of basal * 24 units of bolus (indicates correction only - pt remains NPO) * BSGs ranged from 116 - 244 mg/dL * Fasting BSG is above goal. Will increase Lantus by ~15%. * Novolog correction factor was tightened from 10 to 8 yesterday. Improvement in post prandials noted. Continue same for now. PLAN FOR INPATIENT GLYCEMIC CONTROL: * Basal insulin * Lantus 35-40 units SQ BID (see eMAR for further details) * Bolus insulin * NovoLog per scale ACHS * Goal Range: Low 110 mg/dL - High 140 mg/dL * Correction Factor: 8 mg/dL/unit * Nutritional / Prandial insulin per carb ratio of 1 unit per 4 grams CHO consumed PLAN FOR DISCHARGE: * A1c 8.3%, slightly above goal * F/u with outpatient provider for insulin adjustments as needed
--- NOTE | 2020-01-07 10:24 | Nephrology Progress Note ---
Date of Service January 07, 2020 Assessment & Plan (1) Acute kidney injury: Terrie has stage III CKD with baseline creatinine around 1.7-2, admitted to the hospital with volume overload and congestive heart failure as she seems to have stopped her home diuretics for few days prior to admission. On admission he was found to have SONIA and volume overload, started back on IV diuretics. Creatinine has been staying relatively stable around 2.3-2.4, electrolyte acceptable. Also found to have right leg cellulitis with Pseudomonas aeruginosa growing. Blood culture negative. Has chronic anemia with iron deficiency. Hemoglobin has been relatively stable. Persistent colonic pseudo-obstruction with gaseous distention of stomach and colon. renal function worsened, urine output slightly decreased, blood pressure relatively stable. --Start on calcium 40 mEq IV, Lasix 80 milligram IV x1 dose --persistent colonic pseudo obstruction on imaging, GI following closely --continue on amlodipine 5 milligrams p.o. daily and increase dose as needed --strict I/O --continue on IV Venofer --left arm nephrology precaution, no indication for renal replacement therapy at this time however patient has multiple risk factor for worsening of renal function and needing dialysis in future. Will follow Admission and Anticipated Discharge Date Admission Date: December 28, 2019 Subjective Terrie was seen and examined in her room this morning. Overall feeling poorly with shortness of breath and persistent abdominal distension after slight improvement yesterday following colonoscopic decompression on 01/04. blood pressure stable. Renal function continues to worsen, has hypokalemia. Review of Systems Review of Systems: All systems reviewed & are unremarkable except as noted in HPI & below Physical Exam Constitutional: + ill appearing and + morbidly obese; no acute distress Respiratory: + respiratory distress and able to speak in complete sentences Auscultation: + crackles and + wheezes Cardiovascular: RRR, no murmur, no edema Gastrointestinal (Abdomen): Inspection/Auscultation: + abdomen distended and normal bowel sounds Percussion/Palpation: + abdomen rigid Neurologic: moves all extremities and awake; not confused Psychiatric: A+Ox3, euthymic affect Results & Data ([facility]) Vital Signs (Past 12 Hours) Vital Signs Temp Pulse Pulse Resp BP BP Pulse Ox 01/07/20 07:26 70 01/07/20 07:11 36.8 C 71 20 133/68 95 08/06/20 03:03 36.7 C 73 21 127/70 97 01/07/20 00:55 65 01/06/20 23:32 36.5 C 64 21 112/67 95 PG Care Time/CCT Total # of Minutes Spent Total Time Spent with Patient: Total time spent is greater than 50% in coordination of care (as documented) at patient's floor/unit and/or counseling patient: Coding Level of Care Code 11941 Subseq Hosp Care Lvl 3 Diagnoses Acute kidney injury N17.9
[2020-01-07] MEDS ORDERED: FUROSEMIDE 80 MG in SYRINGE 0 ML IV ONE (10:30)
[2020-01-07] MEDS: POTASSIUM CHLORIDE / WTR 10 MEQ/100 ML PLCT IV SCH ×6 (11:04→23:41)
--- NOTE | 2020-01-07 13:18 | Hospitalist Progress Note ---
Date of Service January 07, 2020 Assessment & Plan (1) Cellulitis: Ruth Cisneros is a 74 year old female with h/o DM II with CKD, asthma, heart failure, and peripheral vascular disease admitted for bilateral LE cellulitis and edema with nonhealing ulcers that failed outpatient therapy. Recent course complicated by moderate ileus, LBO (transition point at splenic flexure) and fluid balance. Bilateral lower extremity cellulitis with underlying venous stasis -12/28/19 R leg surface wound culture: many pseudomonas -wound cultures show Pseudomonas aeruginosa that is susceptible to Zosyn. ? nosocomial -Blood cultures no growth at 5 days -01/06/20: IV Zosyn discontinued. Wound care consulted, bandages removed. Reapplied compression bandages/wraps for venous stasis w/ continuation upon d/c. Ileus -01/05/20 colonoscopy impression: Preparation of the colon was poor. Dilated in the examined region of the colon (distal ->ascending), no masses noted. No specimens collected. Clear liquid diet yesterday, patient tolerated -01/06/20 repeat KUB showed continued distension of small and large bowel, suggestive of ileus vs. distal obstruction -01/06/20 GI progress note: colonic pseudo obstruction, continue conservative management -had received ~2-3 doses of IV morphine over the first few days of admission -discontinued IV morphine PRNs on 01/01/20 due to concern for contribution to ileus -Did have two bowel movements on 01/01. Abdomen still severely distended with hyperactive bowel sounds. Continues to pass flatus. No BM last night, but had one the night prior. -CT abdomen/pelvis w/ PO/IV contrast showed small bowel and colonic dilatation with air fluid levels and a transition zone at the splenic flexure with no visualized obstructing mass -NG tube to low suction produced 1L over 24 hours of gastric dark brown fluid. -NG tube fell out morning of 01/04/20 and patient refused reinsertion due to discomfort. Reglan administered overnight w/ no relief of nausea. Zofran and Reglan held. Pepcid 10 mg IV q12 PRN. -general surgery consulted. -01/07/20 GI progress note: plan is to infuse neostigmine for colonic pseudoobstruction -discussed alternatives w/ patient and considered bowel rest w/ IV hydration vs. rectal decompression tube. Patient would like to proceed w/ neostigmine therapy. -administered neostigmine 2 mg IV -administered atropine 0.5 mg for bradycardia -will reassess patient symptoms and imaging tomorrow AM Supratherapeutic INR, resolved -hold warfarin. -INR: 1.3 on 01/04/20. 1.4 on 01/05/20. Concern of aspiration -speech therapy signed off -nutrition consulted because NPO > 3 days: when medically appropriate, ADAT to low fiber, heart healthy, CHO. Continue to monitor daily wts and I/O's; Lytes repletion PRN. 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 -continue on IV Venofer -left arm nephrology precaution, no indication for renal replacement therapy at this time however patient has multiple risk factor for worsening of renal function and needing dialysis in future - Monitor renal function - Potassium 3.1 today; repleted Acute exacerbation of HFpEF with underlying right heart dysfunction -Patient has hx of heart failure with preserved EF, being managed with bumetanide 4 mg BID at home -Patient reports that she has not been taking her diuretic as instructed recently, which may have triggered the BLE edema -24 hour Narayan ~0.9L. Intake (IV+PO) ~1.1L. Dyspnea at rest -improved, patient reports that she has not always been using nasal cannula -bilat rhonchi on physical exam, unchanged/slightly improved from previous day -CXR consistent mild congestive heart failure -likely due to fluid overload secondary to heart failure and recent lapse in diuretic therapy -wean off oxygen as tolerated Persistent Asthma -Continue duonebs PRN -Lung exam unchanged/slightly improved from prior days, some rhonchi -Continue daily Breo Ellipta. Type II DM -hyperglycemic in the low 300s during first 2 days of admission -Pharmacy managing w/ basal doses + SSI. sugars running low-mid 100s HTN -Continue home labetalol 600mg BID SHELIA -Patient uses home CPAP but has declined use in the hospital -Counseled today on the importance of continuing CPAP while hospitalized Normocytic Anemia -Hgb: 11.6->10.6->13.69 Hct 37.2%->34.9%->35.7%, normocytic, stable -Likely anemia of chronic disease secondary to CKD -CBC daily Hypothyroidism -Continue home levothyroxine 200mcg daily OA bilateral knees -Continue diclofenac gel BID to affected areas -Ambulate to chair daily GERD -Patient on omeprazole 20mg daily at home -While inpatient- pantoprazole 40mg daily -Pepcid 10mg BID PO PRN Hyperlipidemia -Continue home simvastatin 20mg daily History of anxiety disorder -Anxiety improves with improving respiratory status -Continue home escitalopram Code Status: full FEN/GI: NPO. LR 80mL/hr DVT ppx: Warfarin held Dispo: Med/Surg floor. COVID test ordered for possible placement dispo to rehab, auth pending; sample collected on 01/05/20 at 2100. (2) 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, with long- term current use of insulin: (3) Obstructive sleep apnea syndrome: (4) Asthma: (5) CHF (congestive heart failure): (6) Hypokalemia: (7) Chronic GERD: (8) Hyperlipidemia: (9) Anemia: (10) Dyspnea: Admission and Anticipated Discharge Date Admission Date: December 28, 2019 Supervising Physician Co-Signing Physician Notes I personally examined the patient and verified all johansen points of history and exam, discussed case, and agree with decision making with Dr Mendes. belly worse can't eat more bloated. later just after infusion of neostigmine pt had BMs promptly. vitals noted nad heent nc at mmm breathing unlabored no accessory muscles. b/l LE venous stasis changes no erythema, dressed again. abd more distended, mild diffuse tender but (+) tympanic venous stasis cellulitis - improved - infection appears resolved. ok off obx. ileus / alda's - no obstruction on scope. worsened - GI assist w neostigmine greatly appreciated - BM affected. hopefully will improve now otherwise as above Subjective Heartburn and abdominal bloating worsened compared to yesterday. Not relieved by pepcid. Unable to tolerate PO. Passing flatus. +nausea and small amount of emesis x1 during oral intake. Denies abdominal pain. No pain at bilateral lower extremities. Denies fever/chills. Review of Systems Review of Systems: Constitutional: Denies fever Eyes: Denies vision changes Cardiovascular: Denies chest pain Respiratory: Denies shortness of breath Gastrointestinal: Denies constipation, diarrhea Genitourinary: Denies urinary symptoms including dysuria Musculoskeletal: Denies weakness Neurological: Denies headache, numbness, tingling, focal weakness Physical Exam Physical Exam: General: A&Ox3. NAD. Cooperative. HEENT: Atraumatic, normocephalic. EOMI Pulm: +rhonchi. No wheezes or rales. Symmetrical chest rise. No respiratory distress. Cardiac: RRR, -mrg. Abdominal: Soft, distended, nontender to light palpation. Msk: Bilateral lower extremities wrapped in compression stockings. Results & Data Results & Data ([facility]) Vital Signs (Past 12 Hours) Vital Signs Temp Pulse Pulse Resp BP BP Pulse Ox 01/07/20 11:21 36.4 C L 70 20 143/71 H 95 01/07/20 07:26 70 01/07/20 07:11 36.8 C 71 20 133/68 95 01/07/20 03:03 36.7 C 73 21 127/70 97 Resident Activity Tracking Resident Involvement: Resident Care Provided Care Provided: Adult Hospital Medicine (1) CHF (congestive heart failure) Heart failure chronicity: chronic Heart failure type: diastolic Qualified Code(s): I50.32 - Chronic diastolic (congestive) heart failure
[2020-01-07] MEDS ORDERED: NEOSTIGMINE IV ONE ×2 (14:13→14:16)
[2020-01-07] MEDS ORDERED: NEOSTIGMINE METHYLSULFATE 2 MG in SYRINGE 8 ML IM ONE (14:45)
[2020-01-07] MEDS ORDERED: ATROPINE SO4 1 MG/ML 1ML VIAL ONE (14:52)
[2020-01-07] MEDS: WARFARIN SOD 2.5 MG TAB PO SCH (15:38)
[2020-01-07] MEDS ORDERED: Nursing to Pharmacy Communication SCH (16:30)
--- NOTE | 2020-01-07 17:46 | Billing Data ---
Date of Service January 07, 2020 Coding Level of Care Code 57646 Subseq Hosp Care Lvl 3
[2020-01-07] MEDS: LACTATED RINGER'S 1,000 ML IV SCH (17:57)
[2020-01-07] MEDS: ASPIRIN 81 MG ECTAB PO SCH (20:04)
[2020-01-07] MEDS: ROPINIROLE HCL 1 MG TABLET PO SCH (20:04)
[2020-01-07] MEDS: SIMVASTATIN 20 MG TAB PO SCH (20:05)
[2020-01-08] MEDS: POTASSIUM CHLORIDE / WTR 10 MEQ/100 ML PLCT IV SCH ×2 (00:48→01:48)
[2020-01-08] MEDS: FAMOTIDINE 10 MG TABLET PO PRN ×2 (01:47→09:13)
[2020-01-08] MEDS: LACTATED RINGER'S 1,000 ML IV SCH ×2 (06:05→23:58)
[2020-01-08] MEDS: LEVOTHYROXINE SODIUM 75 MCG TABLET PO SCH (06:07)
[2020-01-08] MEDS: LEVOTHYROXINE SODIUM 200 MCG TABLET PO SCH (06:07)
[2020-01-08 07:59] LABS: Hematocrit (blood only) 34.1 % (37-47); Hemoglobin 10.3 g/dL (12.0-16.0); Mean Corpuscular Hemoglobin 25.7 pg (25-34); Mean Corpuscular Hgb Conc 30.2 g/dL (32-36); Mean Platelet Volume 10.2 fL (7.4-10.4); Platelet Count 553 K/uL (130-400); RDW Coefficient of Variation 17.4 % (11.5-14.5); RDW Standard Deviation 51.8 fL (36.4-46.3); Red Blood Count 4.01 M/uL (4.2-5.4); White Blood Count 13.48 K/uL (4.8-10.8)
[2020-01-08 08:35] LABS: Albumin Level 2.2 gm/dl (3.4-5.0); BUN Creatinine Ratio 32.7 (10-20); Calcium 9.7 mg/dl (8.5-10.1); Creatinine Clr Calc Pharmacy 31.3 ml/min; Est GFR (African American) 23.2; Phosphorus 3.3 mg/dl (2.5-4.9); Potassium 3.4 mmol/L (3.5-5.1)
[2020-01-08] MEDS: ESCITALOPRAM OXALATE 10 MG TAB PO SCH (09:13)
[2020-01-08] MEDS: allopurinoL 100 MG TAB PO SCH (09:13)
[2020-01-08] MEDS: AMLODIPINE BESYLATE 5 MG TAB PO SCH (09:13)
[2020-01-08] MEDS: FERROUS SULFATE 325 MG TAB PO SCH (09:13)
[2020-01-08] MEDS: LABETALOL HCL 300 MG TAB PO SCH ×2 (09:14→21:20)
[2020-01-08] MEDS ORDERED: PANTOprazole 40 MG TAB PO ONE (09:16)
[2020-01-08] MEDS: FLUTICASONE/VILANTEROL 200/25MCG 14 PUFFS/INHALER INH SCH (09:17)
[2020-01-08] MEDS: DICLOFENAC SOD 1% GEL 100 GM TUBE EXT SCH ×2 (09:17→21:22)
[2020-01-08] MEDS: POLYETHYLENE (MIRALAX) 17 GM PACK PO SCH (09:18)
[2020-01-08] MEDS: INSULIN GLARGINE SOLOSTAR 100 UNITS/ML 3 ML PEN SC SCH ×2 (09:19→21:44)
[2020-01-08] MEDS: INSULIN ASPART 100 UNITS/ML 3 ML PEN SC SCH ×4 (09:20→21:17)
--- NOTE | 2020-01-08 09:43 | Gastroenterology Progress Note ---
Date of Service January 08, 2020 Assessment & Plan (1) Colonic pseudoobstruction: -Continue to monitor -Ensure patient continues to move her bowels. If bowels stop moving, consider addition of Miralax. -Okay to give Protonix 40 mg daily for heartburn & Pepcid up to 40 mg daily. -This case was discussed with the hospitalist team at bedside. -Await results of abdominal xray. Thank you for allowing us to participate in the care of this patient. If you should have any further questions or concerns, do not hesitate to contact us at [phone] or [phone]. Admission and Anticipated Discharge Date Admission Date: December 28, 2019 Supervising Physician Co-Signing Physician Notes I personally evaluated the patient and agree with the findings as documented by Karen Keller, PAC Exam: abd: softer and improved compared to yesterday, nt, obese responded well to neostigmine yesterday, continues to have BMs. daily KUBs and clear liquid diet for now as tolerated. replete lytes prn. Subjective Patient is a 74 yo female hospitalized with pseudo obstruction. She was administered 2 gm Neostigmine on the telemetry floor on 01/08/20 and a subsequent 2 doses of Atropine for bradycardia. She had immediately movement of her bowels. She has continued to move her bowels 3 times in the past 12 hours. She reports heartburn and reflux. She denies abdominal pain. She is feeling much better. She offers no further new complaints at this time. Her medicine team is at bedside this AM. Review of Systems Constitutional: no fever and no chills Respiratory: no cough and no dyspnea Cardiovascular: no chest pain Gastrointestinal: + heartburn and + diarrhea/loose stools; no abdominal pain Physical Exam Constitutional: WD/WN, vitals as above Respiratory: normal respiratory effort, lungs clear to auscultation Cardiovascular: RRR, no murmur, no edema Gastrointestinal (Abdomen): Percussion/Palpation: abdomen soft (softer than 8/6 with tympanic noises) Musculoskeletal: Head/Neck/Chest: normocephalic Results & Data Results & Data ([facility]) Vital Signs (Past 12 Hours) Vital Signs Temp Pulse Pulse Resp BP BP Pulse Ox 01/08/20 07:32 36.8 C 71 18 135/66 94 01/08/20 02:45 36.7 C 69 22 148/74 H 96 01/08/20 01:54 58 L 01/07/20 23:17 36.8 C 62 22 143/72 H 96 PG Care Time/CCT Total # of Minutes Spent Total Time Spent with Patient: Total time spent is greater than 50% in coordination of care (as documented) at patient's floor/unit and/or counseling patient: Coding Level of Care Code 98792 Subseq Hosp Care Lvl 3 Diagnoses Colonic pseudoobstruction K59.8
[2020-01-08] MEDS: SOD PHOSPHATE/SOD BIPHOSPHATE ENEMA 132 ML BTL PR SCH (09:46)
--- NOTE | 2020-01-08 09:56 | Nephrology Progress Note ---
Date of Service January 08, 2020 Assessment & Plan (1) Acute kidney injury: Terrie has stage III CKD with baseline creatinine around 1.7-2, admitted to the hospital with volume overload and congestive heart failure as she seems to have stopped her home diuretics for few days prior to admission. On admission he was found to have SONIA and volume overload, started back on IV diuretics. Creatinine has been staying relatively stable around 2.3-2.4, electrolyte acceptable. Also found to have right leg cellulitis with Pseudomonas aeruginosa growing. Blood culture negative. Has chronic anemia with iron deficiency. Hemoglobin has been relatively stable. Developed colonic pseudoobstruction, had colonoscopic decompression on 01/04 and has neostigmine on 01/06 with significant improvement this morning. Renal function improving slowly, electrolyte better. BP acceptable. --continue to hold diuretics for now, monitor renal function, electrolyte --continue on amlodipine 5 milligrams p.o. daily and increase dose as needed --strict I/O --continue on IV Venofer --left arm nephrology precaution, no indication for renal replacement therapy at this time however patient has multiple risk factor for worsening of renal function and needing dialysis in future. Will follow Admission and Anticipated Discharge Date Admission Date: December 28, 2019 Subjective Terrie was seen and examined in her room this morning. Overall feeling better, shortness of breath. Abdomen soft. blood pressure stable. Renal function relatively stable, volume status acceptable. Review of Systems Review of Systems: All systems reviewed & are unremarkable except as noted in HPI & below Physical Exam Constitutional: + ill appearing and + morbidly obese; no acute distress Respiratory: + respiratory distress and able to speak in complete sentences Auscultation: + crackles and + wheezes Cardiovascular: RRR, no murmur, no edema Gastrointestinal (Abdomen): Inspection/Auscultation: normal bowel sounds Percussion/Palpation: abdomen soft; abdomen nontender, no guarding and abdomen not rigid Neurologic: moves all extremities and awake; not confused Psychiatric: A+Ox3, euthymic affect Results & Data ([facility]) Vital Signs (Past 12 Hours) Vital Signs Temp Pulse Pulse Resp BP BP Pulse Ox 01/08/20 07:32 36.8 C 71 18 135/66 94 01/08/20 02:45 36.7 C 69 22 148/74 H 96 01/08/20 01:54 58 L 01/07/20 23:17 36.8 C 62 22 143/72 H 96 PG Care Time/CCT Total # of Minutes Spent Total Time Spent with Patient: Total time spent is greater than 50% in coord ination of care (as documented) at patient's floor/unit and/or counseling patient: Coding Level of Care Code 20689 Subseq Hosp Care Lvl 3 Diagnoses Acute kidney injury N17.9
--- NOTE | 2020-01-08 10:31 | XRay Report ---
XR KUB/Abdomen 1 view CLINICAL HISTORY: pseudo obstruction pain COMPARISON STUDY: 01/06/2020 FINDINGS: Mild increase in distention of several small bowel loops. Maximum diameter is 7 cm currentl y mild moderately increased from prior study of 4 cm. Persistent gaseous distention of the proximal colon as well as stomach. Small amount of gas within the rectosigmoid and descending colon. IMPRESSION: Moderate increase in gaseous distention of several small bowel loops. Remainder the stud y is unchanged. ACT 112: Negative or not required by law. The above report was generated using voice recognition software. It may contain grammatical, syntax or spelling errors. Electronically signed by: Bharat Kitchen M.D. 01/08/2020 10:29 AM
--- NOTE | 2020-01-08 12:12 | Pharmacy Report ---
Pharmacy Glycemic Short Note 2 - Date of Service January 08, 2020 - Glycemic Short BSG Results (Last 24 hours): 01/07/20 01/07/20 01/08/20 16:21 20:59 07:12 Glucose 154 H POC Glucose 129 H 163 H 01/08/20 01/08/20 07:40 11:16 Glucose POC Glucose 159 H 176 H OUTPATIENT ANTIDIABETIC REGIMEN: * Glargine 100units Q PM * Novolog 20 units w/ meals + sliding scale, up to 80 units per day * A1c = 8.3% 12/30/2019 ASSESSMENT: 01/07: * No significant changes in glycemic control; BSGs pretty well controlled ranging 129-249 mg/dl * Fasting BSG of 159 mg/dL is near goal. Patient continues to require 70-80 units of Lantus per day. Am fasting BSG closer to goal range with 40 units BID of Lantus. Will increase back to that dosing. * Post prandial BSGs are acceptable. Diet advanced to T1DM. May need to adjust CF/CR for increased CHO intake. 01/06: * No significant changes in glycemic control * Fasting BSG of 138 mg/dL is near goal. Patient continues to require 70-80 units of Lantus per day. * Post prandial BSGs are acceptable. Patient tolerating a clear liquid diet. No change in Novolog today. 01/05: * Ruth received 88 units of insulin yesterday (65 units basal and 23 units bolus) * Fasting BSG increased from 99 -> 157 mg/dL after significant reduction in Lantus dose yesterday. Will conservatively increase Lantus scale. * Post prandial BSGs were at goal yesterday. Pt has been advanced to a clear liquid diet. Anticipate increased Novolog requirements. Will need to reassess tomorrow. 01/04: * Patient received 80 units of insulin yesterday, all basal: * This is ~ 30% decreased from the previous day's total insulin dose * BSGs ranged 83 - 97 mg/dL * No reports of patient having symptoms of low blood sugar. * She remains NPO for the 4th consecutive day. She is scheduled to have a colonoscopy this afternoon; however, she could not tolerate the bowel prep secondary to nausea. * Fasting BSG this AM was 99 mg/dL. PM Lantus dose was reduced even further yesterday evening to 30-40 units depending on BSG. Will continue with current basal dosing BID as patient's max possible dose today would be the same as yesterday (80 units) and min dose would result in a 25% reduction. * She was started on a D5+1/2NS at 50 mL/hr by nephrology today. Informed RN that this will provide 15 gm dextrose in every 6 hours which will need covered with Novolog carb ratio. 01/03: * Patient received 113 units of insulin yesterday: * 110 units of basal + 3 units of bolus * BSGs ranged from 98 - 160 mg/dL * BSGs consistently decreased throughout the day yesterday despite basically no correctional/prandial insulin (patient remains NPO). * Fasting BSG this AM was 83 mg/dL. Decreased basal dose this AM by ~15%. Will decrease evening basal dose per scale. * No change to Novolog parameters at this time. 01/02: * Type 2 diabetic admitted yesterday due to worsening cellulitis of lower extremities and non-healing ulcerations * Patient has been followed by glycemic control service several times in the past year * Patient received 129 units of insulin yesterday: * 105 units of basal * 24 units of bolus (indicates correction only - pt remains NPO) * BSGs ranged from 116 - 244 mg/dL * Fasting BSG is above goal. Will increase Lantus by ~15%. * Novolog correction factor was tightened from 10 to 8 yesterday. Improvement in post prandials noted. Continue same for now. PLAN FOR INPATIENT GLYCEMIC CONTROL: * Basal insulin * Lantus 40 units SQ BID * Bolus insulin * NovoLog per scale ACHS * Goal Range: Low 110 mg/dL - High 140 mg/dL * Correction Factor: 8 mg/dL/unit * Nutritional / Prandial insulin per carb ratio of 1 unit per 3 grams CHO consumed PLAN FOR DISCHARGE: * A1c 8.3%, slightly above goal * F/u with outpatient provider for insulin adjustments as needed
[2020-01-08] MEDS ORDERED: EUCERIN CR 120 GM JAR EXT PRN (14:36)
[2020-01-08] MEDS ORDERED: Nursing to Pharmacy Communication SCH (17:30)
[2020-01-08] MEDS: POTASSIUM CHLORIDE 20 MEQ TABCR PO SCH (17:38)
--- NOTE | 2020-01-08 18:12 | Hospitalist Progress Note ---
Date of Service January 08, 2020 Assessment & Plan (1) Cellulitis: Ruth Cisneros is a 74 year old female with h/o DM II with CKD, asthma, heart failure, and peripheral vascular disease admitted for bilateral LE cellulitis and edema with nonhealing ulcers that failed outpatient therapy. Recent course complicated by moderate ileus, LBO (transition point at splenic flexure) and fluid balance. Bilateral lower extremity cellulitis with underlying venous stasis -12/28/19 R leg surface wound culture: many pseudomonas -wound cultures show Pseudomonas aeruginosa that is susceptible to Zosyn. ? nosocomial -Blood cultures no growth at 5 days -01/06/20: IV Zosyn discontinued. Wound care consulted, bandages removed. Reapplied compression bandages/wraps for venous stasis w/ continuation upon d/c. Ileus -01/05/20 colonoscopy impression: Preparation of the colon was poor. Dilated in the examined region of the colon (distal ->ascending), no masses noted. No specimens collected. Clear liquid diet yesterday, patient tolerated -01/06/20 repeat KUB showed continued distension of small and large bowel, suggestive of ileus vs. distal obstruction -01/06/20 GI progress note: colonic pseudo obstruction, continue conservative management -had received ~2-3 doses of IV morphine over the first few days of admission -discontinued IV morphine PRNs on 01/01/20 due to concern for contribution to ileus -Did have two bowel movements on 01/01. Abdomen still severely distended with hyperactive bowel sounds. Continues to pass flatus. Passing BMs -CT abdomen/pelvis w/ PO/IV contrast showed small bowel and colonic dilatation with air fluid levels and a transition zone at the splenic flexure with no visualized obstructing mass -NG tube to low suction produced 1L over 24 hours of gastric dark brown fluid. -NG tube fell out morning of 01/04/20 and patient refused reinsertion due to di scomfort. Reglan administered overnight w/ no relief of nausea. Zofran and Reglan held. Pepcid 10 mg IV q12 PRN. -general surgery consulted. -01/07/20 GI progress note: plan is to infuse neostigmine for colonic pseudoobstruction -discussed alternatives w/ patient and considered bowel rest w/ IV hydration vs. rectal decompression tube. Patient would like to proceed w/ neostigmine therapy. -administered neostigmine 2 mg IV -administered atropine 0.5 mg for bradycardia -will reassess patient symptoms and imaging tomorrow AM -01/08/20: KUB showed some increase in distension compared to 01/06/20. Will recheck KUB in AM -symptomwise, patient notices improvement after yesterday's neostigmine. passing good BMs. -still has complaint of heartburn. gave pepcid 10 BID and protonix; some relief Supratherapeutic INR, resolved -hold warfarin. -INR: 1.3 on 01/04/20. 1.4 on 01/05/20. Concern of aspiration -speech therapy signed off -nutrition consulted because NPO > 3 days: when medically appropriate, ADAT to low fiber, heart healthy, CHO. Continue to monitor daily wts and I/O's; Lytes repletion PRN. 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 -continue on IV Venofer -left arm nephrology precaution, no indication for renal replacement therapy at this time however patient has multiple risk factor for worsening of renal function and needing dialysis in future - Monitor renal function - Potassium 3.4 today; will replete Acute exacerbation of HFpEF with underlying right heart dysfunction -Patient has hx of heart failure with preserved EF, being managed with bumetanide 4 mg BID at home -Patient reports that she has not been taking her diuretic as instructed recently, which may have triggered the BLE edema -24 hour Narayan 1L Dyspnea at rest -improved, patient reports that she has not always been using nasal cannula -bilat rhonchi on physical exam, unchanged/slightly improved from previous day -CXR consistent mild congestive heart failure -likely due to fluid overload secondary to heart failure and recent lapse in diuretic therapy -wean off oxygen as tolerated Persistent Asthma -Continue duonebs PRN -Lung exam unchanged/slightly improved from prior days, some rhonchi -Continue daily Breo Ellipta. Type II DM -hyperglycemic in the low 300s during first 2 days of admission -Pharmacy managing w/ basal doses + SSI. sugars running low-mid upper 100s HTN -Continue home labetalol 600mg BID SHELIA -Patient uses home CPAP but has declined use in the hospital -Counseled today on the importance of continuing CPAP while hospitalized Normocytic Anemia -Hgb: 11.6->10.6->10.9->10.3 Hct 37.2%->34.9%->35.7%->34.1%, normocytic, stable -Likely anemia of chronic disease secondary to CKD -CBC daily Hypothyroidism -Continue home levothyroxine 200mcg daily OA bilateral knees -Continue diclofenac gel BID to affected areas -Ambulate to chair daily GERD -Patient on omeprazole 20mg daily at home -While inpatient- pantoprazole 40mg daily -Pepcid 10mg BID PO PRN Hyperlipidemia -Continue home simvastatin 20mg daily History of anxiety disorder -Anxiety improves with improving respiratory status -Continue home escitalopram Code Status: full FEN/GI: NPO. LR 80mL/hr DVT ppx: Warfarin held Dispo: Med/Surg floor. COVID test ordered for possible placement dispo to rehab; sample collected on 01/05/20 at 2100. Plan is dispo to [facility] tomorrow. repeat COVID test needed? (2) 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, with long- term current use of insulin: (3) Obstructive sleep apnea syndrome: (4) Asthma: (5) CHF (congestive heart failure): (6) Hypokalemia: (7) Chronic GERD: (8) Hyperlipidemia: (9) Anemia: (10) Dyspnea: Admission and Anticipated Discharge Date Admission Date: December 28, 2019 Supervising Physician Co-Signing Physician Notes I personally examined the patient and verified all johansen points of history and exam, discussed case, and agree with decision making with Dr Mendes. feeling better still heartburn. later GI contacts me suggesting we make her NPO again for bowel rest given prior severity of problem. vitals noted nad heent nc at mmm breathing unlabored no accessory muscles. b/l LE venous stasis changes no erythema, dressed again. abd still distended but less tender than before and less distended. venous stasis cellulitis - improved - infection appears resolved. ok off obx. ileus / alda's - no obstruction on scope. improving since neostigmine - will resume NPO at GI rec otherwise as above Subjective Patient notes improvement in her symptoms. The distension symptoms are less than yesterday. She still has heart burn. She had 3 good BMs. Tolerating light food like fruit, but not heavier stuff like pancake. Reports some relief of heartburn w/ Pepcid + pantoprazole. Review of Systems Review of Systems: Constitutional: Denies fever Cardiovascular: Denies chest pain Respiratory: Denies shortness of breath Gastrointestinal: Denies constipation, diarrhea Physical Exam Physical Exam: General: A&Ox3. NAD. Cooperative. HEENT: Atraumatic, normocephalic. Pulm: +rhonchi. No wheezes or rales. No respiratory distress. Cardiac: RRR, -mrg. Abdominal: Soft, distended, nontender to light palpation. Msk: Bilateral lower extremities wrapped in compression stockings. Venous stasis changes. No active bleeding. Results & Data Results & Data ([facility]) Vital Signs (Past 12 Hours) Vital Signs Temp Pulse Pulse Resp BP Pulse Ox 01/08/20 15:40 36.3 C L 65 18 138/69 96 01/08/20 15:35 36.7 C 65 20 112/65 91 01/08/20 11:25 36.5 C 62 16 142/64 H 96 01/08/20 08:00 65 01/08/20 07:32 36.8 C 71 18 135/66 94 Resident Activity Tracking Resident Involvement: Resident Care Provided Care Provided: Adult Hospital Medicine (1) CHF (congestive heart failure) Heart failure chronicity: chronic Heart failure type: diastolic Qualified Code(s): I50.32 - Chronic diastolic (congestive) heart failure
--- NOTE | 2020-01-08 18:30 | Billing Data ---
Date of Service January 08, 2020 Coding Level of Care Code 66008 Subseq Hosp Care Lvl 3
[2020-01-08] MEDS ORDERED: MELATONIN 3 MG TAB PO PRN (19:08)
[2020-01-08] MEDS: ASPIRIN 81 MG ECTAB PO SCH (21:19)
[2020-01-08] MEDS: ROPINIROLE HCL 1 MG TABLET PO SCH (21:22)
[2020-01-08] MEDS: SIMVASTATIN 20 MG TAB PO SCH (21:23)
[2020-01-09 03:09] LABS: Hematocrit (blood only) 33.1 % (37-47); Hemoglobin 10.1 g/dL (12.0-16.0); Mean Corpuscular Hemoglobin 25.9 pg (25-34); Mean Corpuscular Hgb Conc 30.5 g/dL (32-36); Mean Corpuscular Volume 84.9 fL (80-100); Mean Platelet Volume 10.1 fL (7.4-10.4); Platelet Count 515 K/uL (130-400); RDW Coefficient of Variation 17.6 % (11.5-14.5); RDW Standard Deviation 52.2 fL (36.4-46.3); White Blood Count 11.79 K/uL (4.8-10.8)
[2020-01-09 03:28] LABS: Albumin Level 2.2 gm/dl (3.4-5.0); BUN Creatinine Ratio 34.2 (10-20); Calcium 9.2 mg/dl (8.5-10.1); Creatinine Clr Calc Pharmacy 38.4 ml/min; Est GFR (African American) 29.6; Est GFR (Non-African American) 25.5; Potassium 3.6 mmol/L (3.5-5.1)
[2020-01-09 03:36] LABS: INR 1.4 (0.9-1.1); Prothrombin Time 14.6 Seconds (9.0-12.0)
[2020-01-09 03:40] LABS: Phosphorus 2.7 mg/dl (2.5-4.9)
[2020-01-09] MEDS: LEVOTHYROXINE SODIUM 75 MCG TABLET PO SCH (06:02)
[2020-01-09] MEDS: LEVOTHYROXINE SODIUM 200 MCG TABLET PO SCH (06:03)
[2020-01-09] MEDS ORDERED: FAMOTIDINE 10 MG TABLET PO ONE (07:37)
[2020-01-09] MEDS: LABETALOL HCL 300 MG TAB PO SCH (08:26)
[2020-01-09] MEDS: POTASSIUM CHLORIDE 20 MEQ TABCR PO SCH (08:26)
[2020-01-09] MEDS: ESCITALOPRAM OXALATE 10 MG TAB PO SCH (08:26)
[2020-01-09] MEDS: FERROUS SULFATE 325 MG TAB PO SCH (08:26)
[2020-01-09] MEDS: AMLODIPINE BESYLATE 5 MG TAB PO SCH (08:26)
[2020-01-09] MEDS: allopurinoL 100 MG TAB PO SCH (08:26)
[2020-01-09] MEDS: DICLOFENAC SOD 1% GEL 100 GM TUBE EXT SCH (08:27)
[2020-01-09] MEDS: INSULIN ASPART 100 UNITS/ML 3 ML PEN SC SCH ×2 (08:33→12:02)
[2020-01-09] MEDS: SOD PHOSPHATE/SOD BIPHOSPHATE ENEMA 132 ML BTL PR SCH (08:33)
[2020-01-09] MEDS: FLUTICASONE/VILANTEROL 200/25MCG 14 PUFFS/INHALER INH SCH (08:33)
[2020-01-09] MEDS: POLYETHYLENE (MIRALAX) 17 GM PACK PO SCH (08:41)
[2020-01-09] MEDS ORDERED: PANTOprazole 40 MG TAB PO SCH (09:00)
[2020-01-09] MEDS ORDERED: INSULIN GLARGINE SOLOSTAR 100 UNITS/ML 3 ML PEN SC SCH ×2 (09:00→21:00)
--- NOTE | 2020-01-09 10:36 | Gastroenterology Progress Note ---
Date of Service January 09, 2020 Assessment & Plan Admission and Anticipated Discharge Date Admission Date: December 28, 2019 Subjective Pt asif PO, passing moderate amount of stool. Denies abdominal pain. On exam, she is comfortable. Her breakfast tray is empty. Abd is markedly distended and tympanic, but non tender. Labs reviewed - K mildly low, creat 1.91, ca and phos WNL A/P: Pseudo-obstruction - Pt denies chronic constipation, but review of prior imaging shows several studies with intestinal dilation, suggesting chronic rather than acute pseudo-obstruction. She is markedly distended, but tolerating PO and stooling (overflow diarrhea?). She is currently receiving Fleets' phosphosoda enemas, but would discontinue this given her renal insuff; I have also held her oral iron supplements, which may be constipating. Cont low fiber diet. She will need a maintenance bowel regimen - begin dulcolax 5 BID. She would also benefit from regular scheduled tap water enemas to prevent rectal impaction. Would ask primary team to encourage mobilization and correct eltyte abnl, including K Results & Data ([facility]) Vital Signs (Past 12 Hours) Vital Signs Temp Pulse Pulse Resp BP Pulse Ox 01/09/20 07:45 36.6 C 69 18 124/56 L 94 01/09/20 06:58 63 01/09/20 05:49 64 01/09/20 04:00 37.0 C 70 22 167/68 H 96 01/08/20 23:34 36.6 C 65 20 130/69 93
--- NOTE | 2020-01-09 10:55 | Pharmacy Report ---
Pharmacy Glycemic Short Note 2 - Date of Service January 09, 2020 - Glycemic Short BSG Results (Last 24 hours): 01/08/20 01/08/20 01/08/20 11:16 16:24 20:37 Glucose POC Glucose 176 H 119 H 98 01/08/20 01/09/20 01/09/20 23:11 02:47 08:31 Glucose 118 H POC Glucose 98 154 H OUTPATIENT ANTIDIABETIC REGIMEN: * Glargine 100units Q PM * Novolog 20 units w/ meals + sliding scale, up to 80 units per day * A1c = 8.3% 12/30/2019 ASSESSMENT: 01/08: * Pt with "lower" BSGs last evening 119-98-93 mg/dl. * PM dose of Lantus (40 units) held last evening per hospitalist. * Pt has been maintained well on 65-80 units of Lantus (split BID) since 01/05/20. Pt was on higher basal insulin doses on the days prior * AM fasting BSG in range at 154 mg/dl --> adequate to resume basal insulin * Will give Lantus 40 units this AM (was on 40 units BID) and set a scale for this evening based on BSG * No changes needed to NovoLog parameters 01/07: * No significant changes in glycemic control; BSGs pretty well controlled ranging 129-249 mg/dl * Fasting BSG of 159 mg/dL is near goal. Patient continues to require 70-80 units of Lantus per day. Am fasting BSG closer to goal range with 40 units BID of Lantus. Will increase back to that dosing. * Post prandial BSGs are acceptable. Diet advanced to T1DM. May need to adjust CF/CR for increased CHO intake. 01/06: * No significant changes in glycemic control * Fasting BSG of 138 mg/dL is near goal. Patient continues to require 70-80 units of Lantus per day. * Post prandial BSGs are acceptable. Patient tolerating a clear liquid diet. No change in Novolog today. 01/05: * Ruth received 88 units of insulin yesterday (65 units basal and 23 units bolus) * Fasting BSG increased from 99 -> 157 mg/dL after significant reduction in Lantus dose yesterday. Will conservatively increase Lantus scale. * Post prandial BSGs were at goal yesterday. Pt has been advanced to a clear liquid diet. Anticipate increased Novolog requirements. Will need to reassess tomorrow. 01/04: * Patient received 80 units of insulin yesterday, all basal: * This is ~ 30% decreased from the previous day's total insulin dose * BSGs ranged 83 - 97 mg/dL * No reports of patient having symptoms of low blood sugar. * She remains NPO for the 4th consecutive day. She is scheduled to have a colonoscopy this afternoon; however, she could not tolerate the bowel prep secondary to nausea. * Fasting BSG this AM was 99 mg/dL. PM Lantus dose was reduced even further yesterday evening to 30-40 units depending on BSG. Will continue with current basal dosing BID as patient's max possible dose today would be the same as yesterday (80 units) and min dose would result in a 25% reduction. * She was started on a D5+1/2NS at 50 mL/hr by nephrology today. Informed RN that this will provide 15 gm dextrose in every 6 hours which will need covered with Novolog carb ratio. 01/03: * Patient received 113 units of insulin yesterday: * 110 units of basal + 3 units of bolus * BSGs ranged from 98 - 160 mg/dL * BSGs consistently decreased throughout the day yesterday despite basically no correctional/prandial insulin (patient remains NPO). * Fasting BSG this AM was 83 mg/dL. Decreased basal dose this AM by ~15%. Will decrease evening basal dose per scale. * No change to Novolog parameters at this time. 01/02: * Type 2 diabetic admitted yesterday due to worsening cellulitis of lower extremities and non-healing ulcerations * Patient has been followed by glycemic control service several times in the past year * Patient received 129 units of insulin yesterday: * 105 units of basal * 24 units of bolus (indicates correction only - pt remains NPO) * BSGs ranged from 116 - 244 mg/dL * Fasting BSG is above goal. Will increase Lantus by ~15%. * Novolog correction factor was tightened from 10 to 8 yesterday. Improvement in post prandials noted. Continue same for now. PLAN FOR INPATIENT GLYCEMIC CONTROL: * Basal insulin * Lantus 40 units SQ AM * Lantus 20-40 units SQ PM - dose based on BSG * BSG < 120 --> 20 units * BSG 120-180 --> 30 units * BSG > 180 --> 40 units * Bolus insulin * NovoLog per scale ACHS * Goal Range: Low 110 mg/dL - High 140 mg/dL * Correction Factor: 8 mg/dL/unit * Nutritional / Prandial insulin per carb ratio of 1 unit per 3 grams CHO consumed PLAN FOR DISCHARGE: * A1c 8.3%, slightly above goal * F/u with outpatient provider for insulin adjustments as needed
[2020-01-09] MEDS: ALUMINUM/MAGNESIUM/SIMETH (MAALOX MAX) 30 ML UDC PO PRN (12:05)
--- NOTE | 2020-01-09 13:33 | Nephrology Progress Note ---
Date of Service January 09, 2020 Assessment & Plan (1) Acute kidney injury: Terrie was admitted to the hospital with volume overload and congestive heart failure but over the hospitalization she became somewhat volume depleted with IV diuretics. Diuretics have been held. Volume status is acceptable today. Urine output appropriate. Creatinine has returned to baseline. Electrolytes are acceptable. A potassium supplement is being provided for slightly low serum potassium. The patient is stable from a nephrology standpoint for discharge to rehab. I have no additional recommendations at this time. Medications are appropriately dosed for kidney function. I agree with avoiding Feet enemas. Nep hrology will sign-off. Please call with any additional questions or concerns. Outpatient follow up can be arranged once she is discharged from rehab. (2) Chronic kidney disease: Baseline creatinine 1.7-2.0 mg/dL. (3) Hypokalemia: Oral replacement being provided today. Repeat assessment early next week. (4) Anemia of chronic disease: H/H stable. Iron replacement provided. Follow up as outpateint. (5) Diabetic nephropathy: Admission and Anticipated Discharge Date Admission Date: December 28, 2019 Subjective No acute events overnight. Ruth is moving her bowels. No complaints or concerns this morning. Plan of care discussed with Dr. Mendes. Review of Systems Review of Systems: All systems reviewed & are unremarkable except as noted in HPI & below Physical Exam Constitutional: well developed and + morbidly obese; no acute distress Eyes: no scleral abnormality and no corneal abnormality ENMT: Mouth: no oral mucosal abnormality and oral mucous membranes not dry Neck: normal visual inspection and trachea midline Respiratory: normal respiratory effort Auscultation: lungs clear to auscultation bilaterally Cardiovascular: Rate/Rhythm: regular rate Heart Sounds: normal S1 and normal S2 Extremities: no edema Gastrointestinal (Abdomen): Percussion/Palpation: abdomen soft; abdomen nontender Musculoskeletal: Extremities: no cyanosis and no clubbing Skin: normal turgor; no lesions Neurologic: Motor/Sensory: no tremor and no asterixis Psychiatric: Orientation: alert and oriented x 3 Results & Data ([facility]) Vital Signs (Past 12 Hours) Vital Signs Temp Pulse Pulse Resp BP Pulse Ox 01/09/20 07:45 36.6 C 69 18 124/56 L 94 01/09/20 06:58 63 01/09/20 05:49 64 01/09/20 04:00 37.0 C 70 22 167/68 H 96 Laboratory Results Laboratory Results - last 24 hr 01/08/20 01/08/20 01/08/20 16:24 20:37 23:11 WBC RBC Hgb Hct MCV MCH MCHC RDW Std Deviation RDW Coeff of Joycelyn Plt Count MPV PT INR Sodium Potassium Chloride Carbon Dioxide Anion Gap BUN Creatinine Est Cr Clr Drug Dosing Est GFR ( Amer) Est GFR (Non-Af Amer) BUN/Creatinine Ratio Glucose POC Glucose 119 H 98 98 Calcium Phosphorus Albumin 01/09/20 01/09/20 01/09/20 02:47 02:47 02:47 WBC 11.79 H RBC 3.90 L Hgb 10.1 L Hct 33.1 L MCV 84.9 MCH 25.9 MCHC 30.5 L RDW Std Deviation 52.2 H RDW Coeff of Joycelyn 17.6 H Plt Count 515 H MPV 10.1 PT 14.6 H INR 1.4 H Sodium 146 H Potassium 3.6 Chloride 115 H Carbon Dioxide 25 Anion Gap 6.0 BUN 65 H Creatinine 1.91 H D Est Cr Clr Drug Dosing 38.4 Est GFR ( Amer) 29.6 Est GFR (Non-Af Amer) 25.5 BUN/Creatinine Ratio 34.2 H Glucose 118 H POC Glucose Calcium 9.2 Phosphorus 2.7 Albumin 2.2 L 01/09/20 01/09/20 08:31 11:56 WBC RBC Hgb Hct MCV MCH MCHC RDW Std Deviation RDW Coeff of Joycelyn Plt Count MPV PT INR Sodium Potassium Chloride Carbon Dioxide Anion Gap BUN Creatinine Est Cr Clr Drug Dosing Est GFR ( Amer) Est GFR (Non-Af Amer) BUN/Creatinine Ratio Glucose POC Glucose 154 H 144 H Calcium Phosphorus Albumin PG Care Time/CCT Total # of Minutes Spent Total Time Spent with Patient: Total time spent is greater than 50% in coordination of care (as documented) at patient's floor/unit and/or counseling patient: Coding Level of Care Code 62266 Subseq Hosp Care Lvl 3 Diagnoses Acute kidney injury N17.9 Chronic kidney disease N18.9 Hypokalemia E87.6 Anemia of chronic disease D63.8 Diabetic nephropathy E11.21 Diabetes mellitus type: type 2 (1) Diabetic nephropathy Diabetes mellitus type: type 2 Qualified Code(s): E11.21 - Type 2 diabetes mellitus with diabetic nephropathy
[2020-01-09] MEDS ORDERED: bisacodyL 5 MG TABEC PO SCH (21:00)
--- NOTE | 2020-01-09 23:52 | Discharge Summary ---
Date of Service January 09, 2020 Admission HPI Per Admitting Provider 74 yo F PMHx DM2 on insulin therapy with CKD baseline Cr 1.7, asthma, HFpEF, SHELIA on CPAP, Hx DVT/PE with + Lupus AC on warfarin therapy, hypothyroidism, peripheral vascular disease presented to ED for bilateral LE cellulitis 2/2 nonhealing ulcerations bilaterally that have failed outpatient therapy; was sent by wound care to ED for possible IV antibiotics after wound culture was collected. Patient reports that she has had worsening of her LE wounds for the last 3 weeks, and due to worsening was 4 days ago started on cefdinir 300mg BID. Despite this her wounds have continued to worsen and she has had increased pain causing her to be unable to perform most ADLs. Has a history of wound infections of her bilateral LE that have grown Staph, Proteus, and Pseudomonas with resistance to fluoroquinolones. In ED had leukocytosis to 11.38 with L shift, BCx x2 were drawn and Zosyn started. Found to have Cr 1.8 (baseline ~1.7). Hospitalist service consulted for admission. On interview is in pain despite IV Tylenol. Has no SOB, CP, fevers or chills, nausea or vomiting, constipation or diarrhea. States her sugars go "up and down depending on what I eat. She states she tries to maintain a diabetic diet but that "she slips sometimes". Unable to qualify how high her sugars will go; in ED BSG 122. At home is on U100, 100 units basal insulin, with 20u Novolog at mealtimes and SSI on top. Admission Exam Per Admitting Provider Constitutional: well developed and + obese; no acute distress Eyes: PERRL, conjunctivae normal, anicteric sclerae ENMT: external ear and nose normal, oropharynx normal Neck: normal visual inspection Respiratory: Auscultation: + diminished lung sounds (throughout lung barnes); no crackles, no rhonchi and no wheezes Cardiovascular: Rate/Rhythm: regular rate and regular rhythm Heart Sounds: + murmur (2/6 systolic murmur) Extremities: + edema (2+ bilateral LE pitting edema) Gastrointestinal (Abdomen): normal bowel sounds, soft, nontender, no hepatosplenomegaly Skin: Bilateral LE with multiple ulcerations that are macerated with yellow drainage, foul odor. With bandages on top that upon trying to remove patient cries out in pain and exam deferred. Please see Assessment and Plan and recent Wound Care note for documentation of leg wounds. Bilateral LE with erythema and warmth to level of the knee. No TTP of bilateral knee joints Neurologic: moves all extremities; no focal motor deficits Speech / Cognition: normal speech Motor/Sensory: no tremor Psychiatric: A+Ox3, euthymic affect Principal Diagnosis cellulitis, ileus, SONIA on CKD Discharge Exam General: A&Ox3. NAD. Cooperative. HEENT: Atraumatic, normocephalic. Pulm: +expiratory rhonchi on R, bilat lung barnes clearer than previous day. No respiratory distress. Cardiac: RRR, -mrg. Abdominal: Soft, distended, nontender to light palpation. Msk: Bilateral lower extremities wrapped in compression stockings. Venous stasis. No active bleeding. Discharge Data Allergies Allergy/AdvReac Type Severity Reaction Status Date / Time ibuprofen Allergy Intermediate HIVES Verified 12/28/19 19:56 lisinopril AdvReac Mild COUGH Verified 12/28/19 19:56 zolpidem AdvReac Mild drowsinesss Verified 01/07/20 18:14 pramipexole AdvReac Unknown Unknown Verified 01/07/20 18:14 Consultations 12/28/19 20:50 ED Decision to Admit Stat 12/28/19 23:40 Consult Case Management - Discharge Planning Routine 12/31/19 09:18 Consult Nephrology Routine 01/03/20 10:38 Consult General Surgery Stat 01/04/20 06:36 Consult Gastroenterology Routine 01/09/20 10:49 Consult Case Management - Discharge Planning Routine Procedures Performed Operation Date: 01/05/20 16:15 Actual Procedures p Colonoscopy with Decompression - Tristan Jensen MD Ordered Studies 01/03/20 10:38 CT abd pelvis oral con only Stat Hospital Course (1) Cellulitis: Ruth Cisneros is a 74 year old female with h/o DM II with CKD, asthma, heart failure, and peripheral vascular disease admitted for bilateral LE cellulitis and edema with nonhealing ulcers that failed outpatient therapy. Recent course complicated by moderate ileus, LBO (transition point at splenic flexure) and fluid balance. To Do After Discharge: -nephrology follow up w/ Dr. Verdugo. Continue IV venofer as outpatient? -home diuretics currently held, w/ low threshold for restarting based on clinical assessment (especially breathing) Bilateral lower extremity cellulitis with underlying venous stasis, BC negative Hx of wound infections of BLE that have grown Staph, Proteus, and Pseudomonas with resistance to fluoroquinolones. She had worsening of her LE wounds for 3 wks prior to admission w/ acute worsen ing despite starting cefdinir 300, prompting her admission. In ED had leukocytosis to 11.38 with L shift, BCx x2 were drawn and Zosyn started. Found to have Cr 1.8 (baseline ~1.7). 7 day IV Zosyn course was then completed, after which the cellulitis resolved clinically and patient did not develop new signs of infection. Based on the resolution on physical exam, the decision was made to not transition to oral antibiotics, especially w/ limitations such as prolonged QTc of 500 and prior hx of fluoroquinione resistance. Compression wraps and stocks helped alleviate the venous statis and towards the end of admission, patient was not complaining of bilat LE pain. Wound cultures grew pseudomonas. Ileus w/ element of colonic pseudoobstruction During middle of the almost 2 week admission, patient's main complaint was mainly abdominal bloating (no pain) and heartburn. Patient denied chronic constipation, but review of prior imaging shows several studies with intestinal dilation, suggesting chronic rather than acute pseudo-obstruction. Abd markedly distended, but tolerating PO and stooling (overflow diarrhea?). NG tube was trialed and had good output, but it fell out after a day and patient refused further usage. CT abd showed sigmoid transition point and air fluid levels there, so a colonoscopy and decompression was performed (in context of similar sxs in 2018 and clean colonoscopy then). No masses were shown, so the etiology of the colonic distension was thought to be functional. 2mg neostigmine was administered, w/ 0.5 mg atropine required for some bradycardy in the 40s. There was decent improvement in the patient's symptoms after this. Patient also received Fleets' phosphosoda enemas, but discontinued on dispo given her renal insuff. Oral iron supplements held because possible contributor to constipation. Low fiber diet and maintenance bowel regimen on dispo, dulcolax 5 BID. Concern of aspiration -speech therapy signed off. main concern that prompted consult was when patient was NPO prior to colonscopy. formal assessment was deferred and determined not indicated after. -nutrition consulted because NPO > 3 days: when medically appropriate, ADAT to low fiber, heart healthy, CHO. Continue to monitor daily wts and I/O's; Lytes repletion PRN. 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 Per nephrology: Patient admitted w/ volume overload and CHF as she seems to have stopped her home diuretics for few days prior to admission. On admission he was found to have SOINA and volume overload, started back on IV diuretics. Creatinine has been staying relatively stable around 2.3-2.4, electrolyte acceptable. Renal function improving slowly (1.9 creatinine on day of discharge), electrolyte better. BP acceptable. Plan is to ontinue to hold diuretics for now, monitor renal function, electrolyte at outpatient followup. Continue on amlodipine 5 milligrams p.o. daily and increase dose as needed. Strict I/O --left arm nephrology precaution, no indication for renal replacement therapy at this time however patient has multiple risk factor for worsening of renal function and needing dialysis in future. Hypokalemia -repleted ~daily -was on low side despite repletion, Hypernatremia -likely multiple contributors, including inadequate PO intake during days patient had discomfort from heartburn. NG tube also produced around a liter of output. Thrombocytosis -likely reactive given anemia of chronic disease type picture due to CKD Normocytic Anemia -Hgb: 11.6->10.6->10.9->10.3 Hct 37.2%->34.9%->35.7%->34.1%, normocytic, stable -Likely anemia of chronic disease secondary to CKD -CBC daily Type II DM -hyperglycemic in the low 300s during first 2 days of admission -Pharmacy managing w/ basal doses + SSI. Day of dispo: sugars running low-mid upper 100s Acute exacerbation of HFpEF with underlying right heart dysfunction - Patient has hx of heart failure with preserved EF, being managed with bumetanide 4 mg BID at home - Patient reports that she has not been taking her diuretic as instructed recently, which may have triggered the BLE edema -12/21/19 echo: normal systolic function EF 60-65%. Grade 1 diastolic dysfunction. Moderate concentric LVHMild MR but hard to assess because of mitral annular calcification. -despite echo as above, patient's clinical picture history seems to suggest delicate fluid balance w/ struggle of diuresing for leg edema and breathing vs not stressing kidneys. Dyspnea at rest -improved, patient reports that she has not always been using nasal cannula -bilat rhonchi on physical exam, unchanged/slightly improved from previous day -CXR consistent mild congestive heart failure -likely due to fluid overload secondary to heart failure and recent lapse in diuretic therapy -NC was at 2L most of admission. Weaned to room air on last day. Persistent Asthma -Continue duonebs PRN -Lung exam unchanged/slightly improved from prior days, some rhonchi -Continue daily Breo Ellipta. GERD -Patient on omeprazole 20mg daily at home -While inpatient- pantoprazole 40mg daily -Pepcid 10mg BID PO PRN. Caution against increasing given CKD w/ gfr <30. History of anxiety disorder -Anxiety improves with improving respiratory status -Continued home escitalopram -Patient expressed anxiety about dispo from hospital towards end of admission -our team revisited patient multiple times to allay concerns, such as her concern about her kidney function and the arrangement of transportation -doubled checked plan from nephro standpoint w/ nephrology service (holding diuretics w/ close watch and outpt nephrology f/u) HTN -Continue home labetalol 600mg BID SHELIA -Patient uses home CPAP but has declined use in the hospital -Counseled today on the importance of continuing CPAP while hospitalized Hypothyroidism -Continued home levothyroxine OA bilateral knees -Continue diclofenac gel BID to affected areas -Ambulate to chair daily Hyperlipidemia -Continue home simvastatin 20mg daily Code Status: full FEN/GI: NPO-> diabetic diet. LR 80mL/hr DVT ppx: Warfarin held, but restarted Dispo: Med/Surg floor. (2) 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, with long- term current use of insulin: (3) Obstructive sleep apnea syndrome: (4) Asthma: (5) CHF (congestive heart failure): (6) Hypokalemia: (7) Chronic GERD: (8) Hyperlipidemia: (9) Anemia: (10) Dyspnea: Total Time Total Time Spent Total Time Spent (In Minutes): >30 minutes Total Time Includes: Examination of the Patient, Discharge Planning, Medication Reconciliation and Communication With Other Providers Discharge Plan Discharge Items Patient Disposition: Transfer Inpatient Rehab Fac Reason For Visit: BILATERAL LE CELLULITIS Discharge Diagnosis: colonic pseudoobstruction, CKD, cellulitis (resolved) Activity: Resume your previous activity Non-emergency contact: Primary Care Provider Call non-emergency contact if: you have any medication questions and your symptoms worsen Follow-up/Referrals: Jorge Barney MD [Primary Care Provider] - Leslie Ortega PA-C [Physician Pattern Changer And Repairer] - 01/12/20 2:00 pm Diet: Carb Consistent or DM2 Addtl Attending Provider Instructions: Ruth Cisneros is a 74 year old female with h/o DM II with CKD, asthma, heart failure, and peripheral vascular disease admitted for bilateral LE cellulitis and edema with nonhealing ulcers that failed outpatient therapy. Recent course complicated by moderate ileus, LBO (transition point at splenic flexure) and fluid balance. SPECIFIC INSTRUCTIONS for [facility] -patient has continued paredes -hold diuretics, but have low threshold for restarting. Watch O2 sats and check for worsening of lung auscultation. -please make appointment to follow up with Dr. Verdugo, her folder machine operator in ~1 week and repeat BMP at that time and will reassess need for restarting diuretics. -bowel regimen is Dulcolax 5 BID. Tap water enemas every 1-2 weeks. -temporarily hold ropinirole for bowel symptoms. f/u PCP on 01/11 regarding anemia monitoring NEW MEDS PRESCRIBED -amlodipine 5 QD -Dulcolax 5 BID Cellulitis: Bilateral lower extremity cellulitis with underlying venous stasis. This was treated with IV antibiotics. No further antibiotics needed. Ileus and colonic pseudoobstruction: During the hospitalization, the patient developed abdominal bloating and heart burn symptoms. Colonoscopy (and decompression) showed a sigmoid flexure transition point, so a colonoscopy was performed and it did not show any masses. Neostigmine was given or patient's pseudoobstruction and there was some noticeable improvement in the patient's symptoms. The heartburn symptoms have responded somewhat to PPI and Pepcid (10 BID because CKD). Supratherapeutic INR: Patient's home warfarin had been held for several days because of supratherapeutic INR and needing to do colonoscopy. SONIA on CKD 3 -Creatinine during last few days prior to discharge 2.33->2.55->2.26->2.35->2.91->2.54->1.9 (baseline is 1.7) -Per Nephro consult on day of discharge: --continue to hold diuretics for now, monitor renal function, electrolyte --continue on amlodipine 5 milligrams p.o. daily and increase dose as needed --strict I/O --continue on IV Venofer --left arm nephrology precaution, no indication for renal replacement therapy at this time however patient has multiple risk factor for worsening of renal function and needing dialysis in future. -repleted K several times Acute exacerbation of HFpEF with underlying right heart dysfunction -Patient has hx of heart failure with preserved EF, being managed with bumetanide 4 mg BID at home -Patient reports that she has not been taking her diuretic as instructed recently, which may have triggered the BLE edema -Patient on paredes Dyspnea at rest -was on 2-3L supp O2. weaned Persistent Asthma -Continued duonebs PRN -Lung exam unchanged/slightly improved from prior days, some rhonchi -Continued daily Breo Ellipta. Type II DM -hyperglycemic in the low 300s during first 2 days of admission. -had pharmacy glycemic consult HTN -Continued home labetalol 600mg BID -Added amlodipine 5 PO QD, increase as needed SHELIA -Patient uses home CPAP but has declined use in the hospital Normocytic Anemia -Likely anemia of chronic disease secondary to CKD Hypothyroidism -Continued home levothyroxine OA bilateral knees -Continue diclofenac gel BID to affected areas -Ambulate to chair daily GERD -Patient on omeprazole 20mg daily at home -While inpatient- pantoprazole 40mg daily -Pepcid 10mg BID PO PRN Hyperlipidemia -Continued home simvastatin 20mg daily History of anxiety disorder -Anxiety improves with improving respiratory status -Continue home escitalopram Return precautions. Defer to facility policies If you develop any new or worsening symptoms including fever, chills, sweats, chest pain, chest pressure, difficulty breathing, uncontrolled nausea/vomiting, rash, wheezing, passing out or nearly passing out, bleeding, black/bloody bowel movements, or other new or concerning symptoms please call your primary care physician, or call 911 for re-evaluation in the emergency department if you are very concerned. Pending Studies at Discharge: No Stand-Alone Forms: My [facility] Skilled Items Patient informed of condition?: Yes DNR: No Discharge Level of Care: Acute rehab Communicable Disease: No Discharge Prognosis: Stable Lines: None Urinary Catheter: Yes Medications and DC Order Prescriptions: New bisacodyl 5 mg Tablet,Delayed Release (Dr/Ec) 5 mg PO BID PRN (Reason: Constipation) 30 Days Qty: 60 RF: 0 amlodipine 5 mg tablet 5 mg PO DAILY 30 Days Qty: 30 RF: 0 Continued ferrous sulfate 325 mg (65 mg iron) tablet 325 mg PO DAILY RF: 0 acetaminophen 500 mg capsule 500 mg PO Q6H PRN (Reason: Fever Or Pain) RF: 0 cyanocobalamin (vitamin B-12) [Vitamin B-12] 1,000 mcg Tablet 1,000 mcg PO QAM Qty: 0 RF: 0 aspirin [Aspirin Low Dose] 81 mg Tablet,Delayed Release (Dr/Ec) 81 mg PO HS Qty: 0 RF: 0 omeprazole 20 mg Capsule,Delayed Release(Dr/Ec) 20 mg PO QAM Qty: 0 RF: 0 cholecalciferol (vitamin D3) [Vitamin D3] 1,000 unit Tablet 3,000 unit PO QAM Qty: 0 RF: 0 simvastatin 20 mg tablet 20 mg PO PM Qty: 90 RF: 1 levothyroxine 75 mcg tablet 75 mcg PO QAM Qty: 90 RF: 3 (DME) blood-glucose meter Kit See Rx Instructions .ROUTE .MEDSUPPLY Qty: 1 RF: 0 allopurinol 100 mg tablet 100 mg PO DAILY Qty: 30 RF: 5 bumetanide 2 mg tablet 4 mg PO .COMPLEX Qty: 90 RF: 2 blood sugar diagnostic [OneTouch Ultra Blue Test Strip] Strip See Rx Instructions .ROUTE .COMPLEX Qty: 300 RF: 4 cyclobenzaprine 5 mg tablet 5 mg PO HS PRN (Reason: muscle spasm) Qty: 30 RF: 0 metolazone 2.5 mg tablet 2.5 mg PO DAILY PRN (Reason: weight > 325 lb) Qty: 15 RF: 0 Novolog Flexpen U-100 Insulin 100 unit/mL (3 mL) insulin pen See Rx Instructions SQ .COMPLEX Qty: 30 RF: 5 potassium chloride [Klor-Con M20] 20 mEq tablet,ER particles/crystals 20 meq PO BID Qty: 180 RF: 3 Basaglar KwikPen U-100 Insulin 100 unit/mL (3 mL) insulin pen 100 unit subcut QPM 90 Days Qty: 90 RF: 3 hydroxyzine HCl 25 mg tablet 25 mg PO BID PRN (Reason: itching) Qty: 30 RF: 1 acetic acid 0.25 % solution 100 ml IR DAILY 14 Days Qty: 1000 RF: 1 ropinirole 1 mg tablet 1 mg PO HS Qty: 90 RF: 3 escitalopram oxalate 10 mg tablet 10 mg PO DAILY Qty: 90 RF: 3 diclofenac sodium [Voltaren] 1 % gel 2 gm TOP QID Qty: 100 RF: 3 albuterol sulfate [Ventolin HFA] 90 mcg/actuation HFA aerosol inhaler 2 puff INHALATION Q4H PRN (Reason: Shortness Of Breath) Qty: 18 RF: 2 levalbuterol HCl [Xopenex] 0.63 mg/3 mL solution for nebulization 0.63 mg INH Q6H PRN (Reason: shortness of breath or wheezing) Qty: 36 RF: 3 Breo Ellipta 200-25 mcg/dose blister with device 1 puffs INH DAILY Qty: 60 RF: 3 levothyroxine 200 mcg tablet 200 mcg PO QAM RF: 0 melatonin 10 mg capsule 10 mg PO HS PRN (Reason: Sleep) RF: 0 labetalol 200 mg tablet 600 mg PO BID Qty: 720 RF: 3 warfarin 5 mg tablet See Rx Instructions PO UD 90 Days Qty: 70 RF: 1 buspirone 5 mg tablet 5 mg PO BID PRN (Reason: anxiety) Qty: 30 RF: 0 Hold Instructions: not helping Discontinued cefdinir 300 mg capsule 300 mg PO BID 14 Days Qty: 28 RF: 0 Discharge Orders: Discharge Order (Routine); Ordered 01/09/20 Ordered By: Lul Quezada/Other Patient Handouts: Managing Diabetes: The A1C Test Admission Data Admit Date/Time: 12/28/19 21:22 Attending Provider: Lul Roberts Admit Provider: Ema Lafleur Primary Care Provider: Jorge Barney V. Other Providers: Cris Morris ; Javy Verdugo ; [facility],[place] ; Bharat Drake ; Albert Mcallister ; Dotty Santos ; [facility] Other Interventions: Discharge Summary Assessment (RN) Last Done: 01/09/20 13:58 DC Date/Time DO NOT enter until pt leaves facility: 01/09/20 14:39 Resident Activity Tracking Resident Involvement: Resident Care Provided Care Provided: Adult Hospital Medicine
--- NOTE | 2020-01-10 18:42 | Billing Data ---
Date of Service January 09, 2020 Coding Level of Care Code D/C Day Management <30 mins
[2020-01-11] MEDS ORDERED: WARFARIN SOD 5 MG TAB PO SCH (16:00)
== END 2020-01-09 14:39 | DRG 602 ==
LOC: ED 16:31 → 2N 21:22 → SUATTDRO 21:22 → 2N 23:00

== ENCOUNTER 2020-03-25 12:12 | Inpatient (IN) ==
[2020-03-25] MEDS ORDERED: methylPREDNISolone 125 MG/2 ML VIAL IV STA (12:24)
[2020-03-25] MEDS ORDERED: FUROSEMIDE 40 MG/4 ML VIAL IV STA (12:24)
[2020-03-25] MEDS ORDERED: ALBUT/IPRATROP 3MG/0.5MG NEB 3 ML VIAL INH STA (12:24)
--- NOTE | 2020-03-25 12:33 | Emergency Department Note ---
History of Present Illness General Chief complaint: Shortness of Breath/Dyspnea Time Seen by Provider: 03/25/20 12:15 Source: patient Mode of arrival: EMS History of Present Illness Provider complaint: Shortness of breath Location: chest Severity: moderate Pain Consistency: + constant Quality: + other (Shortness of breath) Relieved By: + medication (DuoNeb) Associated symptoms: + fever/chills and + loss of appetite; no chest pain, no cough and no nausea/vomiting This is a 74-year-old female with a history of CHF and COPD presenting with difficulty breathing since yesterday. The patient states that her symptoms are constant. They are slightly better after receiving a DuoNeb in the ambulance. Per EMS she did have an associated fever of 100.6 today. She does state that she did not take her Lasix this morning and did not use her CPAP last night. She believes that her legs are less swollen than usual. She was recently placed on an antibiotic for an infection to her right leg. She did start that yesterday. She denies any chest discomfort or pain, cough or cold symptoms, known exposure to COVID-19, abdominal pain, vomiting or diarrhea. She does not normally use oxygen except when using her CPAP at night for sleep apnea. She denies any loss of taste or smell. Home Medications Home Medications Medication Instructions Recorded Confirmed Type aspirin [Aspirin Low Dose] 81 mg PO HS #0 07/25/17 03/25/20 History cholecalciferol (vitamin D3) 3,000 unit PO QAM #0 tab 07/25/17 03/25/20 History [Vitamin D3] cyanocobalamin (vitamin B-12) 1,000 mcg PO QAM #0 tab 07/25/17 03/25/20 History [Vitamin B-12] acetaminophen 500 mg capsule 500 mg PO Q6H PRN 04/06/19 03/25/20 History ferrous sulfate 325 mg (65 mg 325 mg PO DAILY 06/15/19 03/25/20 History iron) tablet levalbuterol HCl 0.63 mg/3 mL 0.63 mg INH Q6H PRN #36 ml 06/15/19 03/25/20 Rx solution for nebulization labetalol 600 mg PO BID #720 tab 08/01/19 03/25/20 Rx levothyroxine 75 mcg tablet 75 mcg PO QAM #90 tab 09/08/19 03/25/20 Rx blood-glucose meter #1 ea 09/29/19 03/25/20 Rx allopurinol 100 mg tablet 100 mg PO DAILY #30 tab 10/08/19 03/25/20 Rx escitalopram oxalate 10 mg tablet 10 mg PO DAILY #90 tab 10/19/19 03/25/20 Rx ropinirole 1 mg tablet 1 mg PO HS #90 tab 10/19/19 03/25/20 Rx blood sugar diagnostic See Rx Instructions .ROUTE 11/03/19 03/25/20 Rx .COMPLEX #300 strip cyclobenzaprine 5 mg tablet 5 mg PO HS PRN #30 tab 11/16/19 03/25/20 Rx metolazone 2.5 mg tablet 2.5 mg PO DAILY PRN #15 tab 11/19/19 03/25/20 Rx insulin aspart U-100 100 unit/mL See Rx Instructions SQ .COMPLEX 11/24/19 03/25/20 Rx (3 mL) subcutaneous pen #30 ml fluticasone furoate 200 1 puffs INH DAILY #60 ea 12/03/19 03/25/20 Rx mcg-vilanterol 25 mcg/dose inhalation powder potassium chloride 20 mEq 20 meq PO BID #180 tab 12/14/19 03/25/20 Rx tablet,extended release(part/cryst) atorvastatin 10 mg tablet 10 mg PO DAILY 01/15/20 03/25/20 History insulin glargine 100 unit/mL (3 40 unit SUBCUT QPM ml 01/15/20 03/25/20 History mL) subcutaneous pen melatonin 3 mg tablet 9 mg PO HS PRN tab 01/15/20 03/25/20 History pantoprazole 40 mg tablet,delayed 40 mg PO DAILY 01/15/20 03/25/20 History release simvastatin 20 mg tablet 20 mg PO PM #90 tab 01/26/20 03/25/20 Rx buspirone 5 mg tablet 5 mg PO BID PRN #60 tab 02/02/20 03/25/20 Rx nystatin 100,000 unit/gram topical 1 applic TOPICAL TID #30 g 02/24/20 03/25/20 Rx powder diclofenac sodium 1 % topical gel 2 g TOP QID #100 g 03/01/20 03/25/20 Rx levothyroxine 200 mcg tablet 200 mcg PO QAM #90 tab 03/08/20 03/25/20 Rx warfarin 5 mg tablet 2.5 mg PO 5XWK tab 03/16/20 03/25/20 History hydroxyzine HCl 25 mg tablet 25 mg PO HS PRN #30 tab 03/21/20 03/25/20 Rx sulfamethoxazole 400 1 tab PO BID 14 Days #28 tab 03/23/20 03/25/20 Rx mg-trimethoprim 80 mg tablet albuterol sulfate 90 mcg/actuation 2 puff INHALATION Q4H PRN #18 gm 03/24/20 03/25/20 Rx aerosol inhaler bumetanide 2 mg PO QPM 03/25/20 03/25/20 History bumetanide 4 mg PO QAM 03/25/20 03/25/20 History Allergies Allergy/AdvReac Type Severity Reaction Status Date / Time ibuprofen Allergy Intermediate HIVES Verified 03/25/20 12:54 lisinopril AdvReac Mild COUGH Verified 03/25/20 12:54 zolpidem AdvReac Mild drowsinesss Verified 03/25/20 12:54 pramipexole AdvReac Unknown Unknown Verified 03/25/20 12:54 Past Med/Surg History Medical History (Updated 03/25/20 @ 20:19 by Dion Norris MD) Abdominal pain Acute kidney injury Anemia Arthritis CHF (congestive heart failure) Chronic GERD Chronic kidney disease, stage III (moderate) COPD (chronic obstructive pulmonary disease) Depression Diabetes Diabetic neuropathy Health care maintenance Hemorrhoids HTN (hypertension) Hyperlipidemia Hypothyroidism Left bundle branch block Lymphedema Mild mitral stenosis Mitral regurgitation Morbid obesity SHELIA on CPAP Osteopenia Proteus infection Restless leg syndrome Sleep apnea Stage III chronic kidney disease Urinary incontinence Venous insufficiency Vitamin D deficiency Vulvar cyst Vulvovaginitis Surgical History H/O hysterectomy with oophorectomy History of cataract surgery History of cholecystectomy Family History Mother Diabetes Colon cancer Lung cancer Father Esophageal cancer Other Hypertension Denies family history of Ovarian cancer Prostate cancer Myocardial infarction Breast cancer Social History Smoking Status: Never smoker Second Hand Exposure: No; Hx Alcohol Use: No Hx Substance Use: No Preferred Language: Yi Communication Ability: Effective Visual Impairment: No Limitations Hearing Ability: Normal Load Out Person Required: No Beliefs That Will Affect Care: None marital status: Current Living Situation: Spouse Current Living Situation Comment: HEALTH AIDE COMES DAILY current occupational status: retired How many Children do You have: 4 How many Children do You have Comment: children are local and able to assist as needed Other Information That Helps Us Care for You: No Feels Safe at Home: Yes Safety Concerns: Feels Safe At This Time during the past year weight has: remained stable Seatbelt Use: always Assistive Devices: CPAP, Denture - Upper, Denture - Lower, Glasses, Oxygen - Continuous and Walker Review of Systems See HPI for pertinent positives & negatives. and A total of 10 systems reviewed and were otherwise negative Physical Exam Vital Signs Vital Signs - 24 hr 03/25/20 12:24 03/25/20 12:31 03/25/20 13:13 Temperature 38.7 C H Temperature Source Oral Pulse Rate 110 H Pulse Rate [Apical] 110 H Respiratory Rate 22 24 Respiratory Effort / Characteristics Blood Pressure 134/78 Blood Pressure [Left Arm] 140/71 Blood Pressure Mean 96 Blood Pressure Mean [Left Arm] 94 Pulse Oximetry 92 88 L 92 Oxygen Delivery Method Nasal Cannula Room Air Nasal Cannula Nasal Cannula Oxygen Flow Rate 4 0 3 Sepsis Recent Fever Within 48 Hours Yes Sepsis New/Unexplained Change in Mental Status No Sepsis Action Taken by Nursing Physician Notified Oxygen Flow Rate - Titration 4 Pulse Oximetry Post Tiitration 93 03/25/20 14:11 03/25/20 14:14 Temperature Temperature Source Pulse Rate Pulse Rate [Apical] 102 H 108 H Respiratory Rate 22 24 Respiratory Effort / Characteristics Spontaneous Blood Pressure Blood Pressure [Left Arm] 156/67 H Blood Pressure Mean Blood Pressure Mean [Left Arm] 96 Pulse Oximetry 94 93 Oxygen Delivery Method Nasal Cannula Nasal Cannula Oxygen Flow Rate 4 3 Sepsis Recent Fever Within 48 Hours Sepsis New/Unexplained Change in Mental Status Sepsis Action Taken by Nursing Oxygen Flow Rate - Titration Pulse Oximetry Post Tiitration Constitutional: Vital signs reviewed. Eyes: Pupils are equal round reactive to light. Conjunctiva are noninjected. ENT: Pharynx is clear without erythema or exudate. Mucous membranes are dry. Neck supple without meningeal signs. Respiratory: Diffuse wheezing bilaterally. Breath sounds are equal bilaterally. Cardiovascular: Tachycardic. Heart rate 112. Regular rhythm. GI: Soft, nondistended and nontender. Bowel sounds are present. Musculoskeletal: Bilateral lower extremity edema with venous stasis discoloration bilaterally and cellulitis to the right anterior foss. Integumentary: No cyanosis. or jaundice. Neurological: The patient is awake and alert. No focal deficits. Psychiatric: Normal affect. Not anxious appearing. Course Administered Medications Acetaminophen (Acetaminophen 325 Mg Tab) 650 mg PO Q4H PRN PRN Reason: Pain or Fever Stop: 04/24/20 16:10 Last Admin: 03/25/20 16:33 Dose: 650 mg Documented by: [id number] Albuterol (Albuterol Hfa 8 Gm Inhaler) 2 puffs INH Q4H PRN; Protocol PRN Reason: Shortness Of Breath Stop: 04/24/20 16:10 Last Admin: 03/25/20 16:48 Dose: 2 puffs Documented by: [id number] Albuterol (Albut/Ipratrop 3mg/0.5mg Neb 3 Ml Vial) 3 ml NEB Q4R LANRE Stop: 04/24/20 18:59 Last Admin: 03/25/20 19:00 Dose: 3 ml Documented by: [id number] Aspirin (Aspirin 81 Mg Ectab) 81 mg PO HS LANRE Stop: 04/24/20 20:59 Last Admin: 03/25/20 20:03 Dose: 81 mg Documented by: [id number] Diclofenac Sodium (Diclofenac Sod 1% Gel 100 Gm Tube) 2 gm EXT QID LANRE Stop: 04/24/20 16:59 Last Admin: 03/25/20 20:01 Dose: 2 gm Documented by: [id number] Admin: 03/25/20 17:30 Dose: 2 gm Documented by: [id number] Methylprednisolone 40 mg/ (Syringe) 0.64 mls @ 1.5 mls/min IV BID LANRE Stop: 04/24/20 20:59 Last Admin: 03/25/20 20:03 Dose: 1.5 mls/min Documented by: [id number] Daptomycin 350 mg/ Syringe 7 mls @ 3.5 mls/min IV DAILY@1800 LANRE; Protocol Stop: 04/01/20 17:59 Last Admin: 03/25/20 18:18 Dose: 3.5 mls/min Documented by: [id number] Insulin Aspart (Insulin Aspart 100 Units/Ml 3 Ml Pen) 0 units SC ACHS LANRE Stop: 04/24/20 16:29 Last Admin: 03/25/20 17:30 Dose: 19 units Documented by: [id number] Cosigned by: [id number] Labetalol HCl (Labetalol Hcl 300 Mg Tab) 600 mg PO BID LANRE Stop: 04/24/20 20:59 Last Admin: 03/25/20 20:03 Dose: 600 mg Documented by: [id number] Nystatin (Nystatin Powder 15gm Btl) 1 appln EXT TID LANRE Stop: 04/24/20 16:10 Last Admin: 03/25/20 20:01 Dose: 1 appln Documented by: [id number] Admin: 03/25/20 17:30 Dose: 1 appln Documented by: [id number] Potassium Chloride (Potassium Chloride 20 Meq Tabcr) 20 meq PO BID LANRE Stop: 04/24/20 20:59 Last Admin: 03/25/20 20:02 Dose: 20 meq Documented by: [id number] Ropinirole HCl (Ropinirole Hcl 1 Mg Tablet) 1 mg PO HS LANRE Stop: 04/24/20 20:59 Last Admin: 03/25/20 20:02 Dose: 1 mg Documented by: [id number] Discontinued Medications Albuterol (Albut/Ipratrop 3mg/0.5mg Neb 3 Ml Vial) 12 ml INH ONE STA Stop: 03/25/20 12:25 Last Admin: 03/25/20 14:13 Dose: 12 ml Documented by: [id number] Furosemide (Furosemide 40 Mg/4 Ml Vial) 40 mg IV NOW STA Stop: 03/25/20 12:25 Last Admin: 03/25/20 13:13 Dose: 40 mg Documented by: [id number] Bumetanide 4 mg/ Syringe 16 mls @ 3 mls/min IV ONE ONE Stop: 03/25/20 15:10 Last Admin: 03/25/20 16:35 Dose: 3 mls/min Documented by: [id number] Chlorothiazide Sodium 500 mg/ (Dextrose) 68 mls @ 200 mls/hr IV ONE ONE Stop: 03/25/20 15:37 Last Infusion: 03/25/20 16:38 Dose: 0 mls/hr Documented by: [id number] Admin: 03/25/20 16:17 Dose: 200 mls/hr Documented by: [id number] Piperacillin Sod/Tazobactam Sod (Zosyn) 4.5 gm in 120 mls @ 240 mls/hr IV NOW ONE Stop: 03/25/20 17:29 Last Infusion: 03/25/20 18:00 Dose: 0 mls/hr Documented by: [id number] Admin: 03/25/20 17:05 Dose: 240 mls/hr Documented by: [id number] Insulin Glargine (Insulin Glargine Solostar 100 Units/Ml 3 Ml Pen) 70 units SQ NOW ONE Stop: 03/25/20 17:01 Last Admin: 03/25/20 17:32 Dose: 70 units Documented by: [id number] Cosigned by: [id number] Methylprednisolone (Methylprednisolone 125 Mg/2 Ml Vial) 125 mg IV NOW STA Stop: 03/25/20 12:25 Last Admin: 03/25/20 13:13 Dose: 125 mg Documented by: [id number] Critical Care Time Critical Care Time: Yes Total Critical Care Time: 35 I have personally spent approximately 35 minutes of critical care time in the direct management of this patient. This includes bedside care, interpretation of diagnostic studies, and testing, discussion with consultants, patient, and family members, and other required patient management activities. These minutes are in excess of all separately billable procedures. Medical Decision Making Differential Diagnosis CHF exacerbation, COPD exacerbation, pneumonia, COVID-19, cellulitis Medical Records Attestation: I reviewed the patient's medical records. The patient was seen by the wound care clinic on March 21. She was placed on Bactrim for 14 days for a wound to the right leg. She was seen by the anticoagulation clinic and they laid out a schedule for her on the to reduce her Coumadin intake due to the antibiotic use. Per the schedule she has not yet reduced her Coumadin intake. Home Medications Current Medication List: was personally reviewed by me Laboratory Data Attestation: I reviewed the patient's lab results. Result diagrams: 03/25/20 12:25 03/25/20 12:25 Lab Results 03/25/20 03/25/20 03/25/20 Range/Units 12:25 12:25 12:25 WBC 18.06 H (4.8-10.8) K/uL RBC 4.36 (4.2-5.4) M/uL Hgb 11.8 L (12.0-16.0) g/dL Hct 38.1 (37-47) % MCV 87.4 (80-100) fL MCH 27.1 (25-34) pg MCHC 31.0 L (32-36) g/dL RDW Std Deviation 57.6 H (36.4-46.3) fL RDW Coeff of Joycelyn 17.9 H (11.5-14.5) % Plt Count 333 (130-400) K/uL MPV 10.8 H (7.4-10.4) fL Immature Gran % (Auto) 0.3 % Neut % (Auto) 90.6 % Lymph % (Auto) 5.1 % [place] % (Auto) 3.8 % Eos % (Auto) 0.1 % Baso % (Auto) 0.1 % Neut # (Auto) 16.35 H (1.4-6.5) K/uL Lymph # (Auto) 0.93 L (1.2-3.4) K/uL [place] # (Auto) 0.69 H (0.11-0.59) K/uL Eos # (Auto) 0.02 (0-0.5) K/uL Baso # (Auto) 0.01 (0-0.2) K/uL Immature Gran # (Auto) 0.06 H (0.00-0.02) K/uL PT 21.7 H (9.0-12.0) Seconds INR 2.1 H (0.9-1.1) APTT 56.4 H* (21.0-31.0) Seconds PTT Ratio 2.0 Sodium (136-145) mmol/L Potassium (3.5-5.1) mmol/L Chloride (98-107) mmol/L Carbon Dioxide (21-32) mmol/L Anion Gap (3-11) BUN (7-18) mg/dl Creatinine (0.6-1.2) mg/dl Est Cr Clr Drug Dosing ml/min Est GFR ( Amer) Est GFR (Non-Af Amer) BUN/Creatinine Ratio (10-20) Glucose (70-99) mg/dl Lactate (0.4-2.0) mmol/L Calcium (8.5-10.1) mg/dl Total Bilirubin (0.2-1) mg/dl AST (15-37) U/L ALT (12-78) U/L Alkaline Phosphatase (45-117) U/L Troponin I Cancelled NT-Pro-B Natriuret Pep Cancelled Total Protein (6.4-8.2) gm/dl Albumin (3.4-5.0) gm/dl Globulin (2.5-4.0) gm/dl Albumin/Globulin Ratio (0.9-2) Procalcitonin (0-0.5) ng/ml Urine Color Urine Appearance (Clear) Urine pH (4.5-7.5) Ur Specific [place] (1.000-1.030) Urine Protein (Negative) Urine Glucose (UA) (Negative) Urine Ketones (Negative) Urine Blood (Negative) Urine Nitrite (Negative) Urine Bilirubin (Negative) Urine Urobilinogen (Negative) Ur Leukocyte Esterase (Negative) Urine WBC (Auto) (0-5) /hpf Urine RBC (Auto) (0-4) /hpf U Hyaline Cast (Auto) (0-5) /lpf U Epithel Cells (Auto) (0-5) /lpf Urine Bacteria (Auto) (Negative) COVID-19 Eval Order COVID-19 PCR (Negative) Influ A Molecular Assay (Negative) Influ B Molecular Assay (Negative) 03/25/20 03/25/20 03/25/20 Range/Units 12:25 12:27 12:30 WBC (4.8-10.8) K/uL RBC (4.2-5.4) M/uL Hgb (12.0-16.0) g/dL Hct (37-47) % MCV (80-100) fL MCH (25-34) pg MCHC (32-36) g/dL RDW Std Deviation (36.4-46.3) fL RDW Coeff of Joycelyn (11.5-14.5) % Plt Count (130-400) K/uL MPV (7.4-10.4) fL Immature Gran % (Auto) % Neut % (Auto) % Lymph % (Auto) % [place] % (Auto) % Eos % (Auto) % Baso % (Auto) % Neut # (Auto) (1.4-6.5) K/uL Lymph # (Auto) (1.2-3.4) K/uL [place] # (Auto) (0.11-0.59) K/uL Eos # (Auto) (0-0.5) K/uL Baso # (Auto) (0-0.2) K/uL Immature Gran # (Auto) (0.00-0.02) K/uL PT (9.0-12.0) Seconds INR (0.9-1.1) APTT (21.0-31.0) Seconds PTT Ratio Sodium 139 (136-145) mmol/L Potassium 3.8 (3.5-5.1) mmol/L Chloride 103 (98-107) mmol/L Carbon Dioxide 28 (21-32) mmol/L Anion Gap 8.0 (3-11) BUN 46 H (7-18) mg/dl Creatinine 2.11 H (0.6-1.2) mg/dl Est Cr Clr Drug Dosing 33.9 ml/min Est GFR ( Amer) 26.2 Est GFR (Non-Af Amer) 22.6 BUN/Creatinine Ratio 21.8 H (10-20) Glucose 154 H (70-99) mg/dl Lactate 1.9 (0.4-2.0) mmol/L Calcium 8.6 (8.5-10.1) mg/dl Total Bilirubin 1.1 H (0.2-1) mg/dl AST 17 (15-37) U/L ALT 17 (12-78) U/L Alkaline Phosphatase 87 (45-117) U/L Troponin I 0.026 NT-Pro-B Natriuret Pep 2078 H Total Protein 7.5 (6.4-8.2) gm/dl Albumin 3.0 L (3.4-5.0) gm/dl Globulin 4.5 H (2.5-4.0) gm/dl Albumin/Globulin Ratio 0.7 L (0.9-2) Procalcitonin (0-0.5) ng/ml Urine Color Urine Appearance (Clear) Urine pH (4.5-7.5) Ur Specific [place] (1.000-1.030) Urine Protein (Negative) Urine Glucose (UA) (Negative) Urine Ketones (Negative) Urine Blood (Negative) Urine Nitrite (Negative) Urine Bilirubin (Negative) Urine Urobilinogen (Negative) Ur Leukocyte Esterase (Negative) Urine WBC (Auto) (0-5) /hpf Urine RBC (Auto) (0-4) /hpf U Hyaline Cast (Auto) (0-5) /lpf U Epithel Cells (Auto) (0-5) /lpf Urine Bacteria (Auto) (Negative) COVID-19 Eval Order Covid19 Done at [facility] COVID-19 PCR (Negative) Influ A Molecular Assay (Negative) Influ B Molecular Assay (Negative) 03/25/20 03/25/20 03/25/20 Range/Units 12:30 12:30 12:30 WBC (4.8-10.8) K/uL RBC (4.2-5.4) M/uL Hgb (12.0-16.0) g/dL Hct (37-47) % MCV (80-100) fL MCH (25-34) pg MCHC (32-36) g/dL RDW Std Deviation (36.4-46.3) fL RDW Coeff of Joycelyn (11.5-14.5) % Plt Count (130-400) K/uL MPV (7.4-10.4) fL Immature Gran % (Auto) % Neut % (Auto) % Lymph % (Auto) % [place] % (Auto) % Eos % (Auto) % Baso % (Auto) % Neut # (Auto) (1.4-6.5) K/uL Lymph # (Auto) (1.2-3.4) K/uL [place] # (Auto) (0.11-0.59) K/uL Eos # (Auto) (0-0.5) K/uL Baso # (Auto) (0-0.2) K/uL Immature Gran # (Auto) (0.00-0.02) K/uL PT (9.0-12.0) Seconds INR (0.9-1.1) APTT (21.0-31.0) Seconds PTT Ratio Sodium (136-145) mmol/L Potassium (3.5-5.1) mmol/L Chloride (98-107) mmol/L Carbon Dioxide (21-32) mmol/L Anion Gap (3-11) BUN (7-18) mg/dl Creatinine (0.6-1.2) mg/dl Est Cr Clr Drug Dosing ml/min Est GFR ( Amer) Est GFR (Non-Af Amer) BUN/Creatinine Ratio (10-20) Glucose (70-99) mg/dl Lactate (0.4-2.0) mmol/L Calcium (8.5-10.1) mg/dl Total Bilirubin (0.2-1) mg/dl AST (15-37) U/L ALT (12-78) U/L Alkaline Phosphatase (45-117) U/L Troponin I NT-Pro-B Natriuret Pep Total Protein (6.4-8.2) gm/dl Albumin (3.4-5.0) gm/dl Globulin (2.5-4.0) gm/dl Albumin/Globulin Ratio (0.9-2) Procalcitonin (0-0.5) ng/ml Urine Color Yellow Urine Appearance Clear (Clear) Urine pH 5.0 (4.5-7.5) Ur Specific [place] 1.019 (1.000-1.030) Urine Protein Trace H (Negative) Urine Glucose (UA) Negative (Negative) Urine Ketones Negative (Negative) Urine Blood Trace H (Negative) Urine Nitrite Negative (Negative) Urine Bilirubin Negative (Negative) Urine Urobilinogen Negative (Negative) Ur Leukocyte Esterase 1+ H (Negative) Urine WBC (Auto) 1-5 (0-5) /hpf Urine RBC (Auto) 0-4 (0-4) /hpf U Hyaline Cast (Auto) 1-5 (0-5) /lpf U Epithel Cells (Auto) >30 H (0-5) /lpf Urine Bacteria (Auto) Negative (Negative) COVID-19 Eval Order COVID-19 PCR NEGATIVE (Negative) Influ A Molecular Assay Negative (Negative) Influ B Molecular Assay Negative (Negative) 03/25/20 Range/Units 12:45 WBC (4.8-10.8) K/uL RBC (4.2-5.4) M/uL Hgb (12.0-16.0) g/dL Hct (37-47) % MCV (80-100) fL MCH (25-34) pg MCHC (32-36) g/dL RDW Std Deviation (36.4-46.3) fL RDW Coeff of Joycelyn (11.5-14.5) % Plt Count (130-400) K/uL MPV (7.4-10.4) fL Immature Gran % (Auto) % Neut % (Auto) % Lymph % (Auto) % [place] % (Auto) % Eos % (Auto) % Baso % (Auto) % Neut # (Auto) (1.4-6.5) K/uL Lymph # (Auto) (1.2-3.4) K/uL [place] # (Auto) (0.11-0.59) K/uL Eos # (Auto) (0-0.5) K/uL Baso # (Auto) (0-0.2) K/uL Immature Gran # (Auto) (0.00-0.02) K/uL PT (9.0-12.0) Seconds INR (0.9-1.1) APTT (21.0-31.0) Seconds PTT Ratio Sodium (136-145) mmol/L Potassium (3.5-5.1) mmol/L Chloride (98-107) mmol/L Carbon Dioxide (21-32) mmol/L Anion Gap (3-11) BUN (7-18) mg/dl Creatinine (0.6-1.2) mg/dl Est Cr Clr Drug Dosing ml/min Est GFR ( Amer) Est GFR (Non-Af Amer) BUN/Creatinine Ratio (10-20) Glucose (70-99) mg/dl Lactate (0.4-2.0) mmol/L Calcium (8.5-10.1) mg/dl Total Bilirubin (0.2-1) mg/dl AST (15-37) U/L ALT (12-78) U/L Alkaline Phosphatase (45-117) U/L Troponin I NT-Pro-B Natriuret Pep Total Protein (6.4-8.2) gm/dl Albumin (3.4-5.0) gm/dl Globulin (2.5-4.0) gm/dl Albumin/Globulin Ratio (0.9-2) Procalcitonin 1.18 H (0-0.5) ng/ml Urine Color Urine Appearance (Clear) Urine pH (4.5-7.5) Ur Specific [place] (1.000-1.030) Urine Protein (Negative) Urine Glucose (UA) (Negative) Urine Ketones (Negative) Urine Blood (Negative) Urine Nitrite (Negative) Urine Bilirubin (Negative) Urine Urobilinogen (Negative) Ur Leukocyte Esterase (Negative) Urine WBC (Auto) (0-5) /hpf Urine RBC (Auto) (0-4) /hpf U Hyaline Cast (Auto) (0-5) /lpf U Epithel Cells (Auto) (0-5) /lpf Urine Bacteria (Auto) (Negative) COVID-19 Eval Order COVID-19 PCR (Negative) Influ A Molecular Assay (Negative) Influ B Molecular Assay (Negative) Imaging Data Radiologist's Impression: SINGLE VIEW CHEST CLINICAL HISTORY: Dyspnea. FINDINGS: An AP, portable, upright chest radiograph is compared to study dated 12/29/2019. The examination is degraded by portable technique and patient rotation. The heart is enlarged noting atherosclerotic calcification of the thoracic aorta. There is pulmonary vascular congestion with evidence of interst itial edema. Atelectasis is noted at the lung bases. No large pleural effusion or pneumothorax is seen. The skeletal structures are osteopenic. The bony thorax is grossly intact. IMPRESSION: Cardiomegaly with evidence of congestive failure and interstitial edema. ACT 112: Negative or not required by law. Electronically signed by: Jayce Patterson M.D. 03/25/2020 1:15 PM ECG Data Attestation: I personally reviewed and interpreted this ECG as follows: Indication: + SOB/dyspnea Rate (beats per minute): 115 Rhythm: + sinus tachycardia ECG Intervals/blocks: + Left bundle branch block ECG ST segments: + Nonspecific ST abnormalities ECG Findings: no PVCs Comparison ECG Date: from (01/05/2020) Change: no significant change MDM Narrative I did evaluate the patient as noted above. The patient is brought in by EMS with shortness of breath. I did speak to the EMS provider who stated that her temperature was 100.6. She was placed in respiratory isolation. She is hypoxemic and placed on supplemental oxygen. Her O2 saturation is 93% on 3 L. IV access was established. I did treat her with IV Lasix and Solu-Medrol. She was also given an hour-long continuous DuoNeb. I did place an order for continuous cardiac monitoring. The monitor showed sinus tachycardia at a rate of 115 bpm. I did order and personally review the patient's 12-lead EKG as described above. She has no acute ischemic changes. I did order and personally reviewed the images of the patient's chest x-ray as described above. There is evidence of failure and cardiomegaly. I did order a urine analysis. She does not have a UTI. I did order and review the patient's blood work as noted in the electronic medical record. Her white count is 18,000. Creatinine is 2.1. This is close to her baseline. INR is 2.1 and therapeutic. Troponin is negative. BNP is elevated. Covid testing was negative. She will be hospitalized for her continued dyspnea and hypoxemia. I did discuss case with the hospitalist and caser up. Impression & Plan Hypoxemia, CKD (chronic kidney disease), Acute exacerbation of chronic obstructive pulmonary disease, Acute exacerbation of CHF (congestive heart failure), Anticoagulated on Coumadin Discharge Plan Visit Data Chief Complaint: Shortness of Breath/Dyspnea ED Provider: Dion Norris Discharge Problem: Hypoxemia, CKD (chronic kidney disease), Acute exacerbation of chronic obstructive pulmonary disease, Acute exacerbation of CHF (congestive heart failure), Anticoagulated on Coumadin Patient Disposition: Admitted As Inpatient Discharge Instructions Interventions: ED Discharge Assessment Last Done: 03/25/20 15:40
[2020-03-25 12:47] LABS: Basophils # (auto) 0.01 K/uL (0-0.2); Basophils % (auto) 0.1 %; Eosinophils # (auto) 0.02 K/uL (0-0.5); Eosinophils % (auto) 0.1 %; Hematocrit (blood only) 38.1 % (37-47); Hemoglobin 11.8 g/dL (12.0-16.0); Immature Granulocytes # (auto) 0.06 K/uL (0.00-0.02); Immature Granulocytes % (auto) 0.3 %; Lymphocytes # (auto) 0.93 K/uL (1.2-3.4); Lymphocytes % (auto) 5.1 %; Mean Corpuscular Hemoglobin 27.1 pg (25-34); Mean Corpuscular Volume 87.4 fL (80-100); Mean Platelet Volume 10.8 fL (7.4-10.4); Monocytes # (auto) 0.69 K/uL (0.11-0.59); Monocytes % (auto) 3.8 %; Neutrophils # (auto) 16.35 K/uL (1.4-6.5); Neutrophils % (auto) 90.6 %; Platelet Count 333 K/uL (130-400); RDW Coefficient of Variation 17.9 % (11.5-14.5); RDW Standard Deviation 57.6 fL (36.4-46.3); Red Blood Count 4.36 M/uL (4.2-5.4); White Blood Count 18.06 K/uL (4.8-10.8)
[2020-03-25 12:50] LABS: Appearance Urine Clear (Clear); Bacteria Urine Automated Negative (Negative); Bilirubin Urine Negative (Negative); Blood Urine Trace (Negative); Color Urine Yellow; Epithelial Cell Urine Auto >30 /lpf (0-5); Glucose Urine UA Negative (Negative); Ketones Urine Negative (Negative); Leukocyte Esterase Urine 1+ (Negative); Nitrite Urine Negative (Negative); Protein Urine Trace (Negative); RBC Urine Automated 0-4 /hpf (0-4); Specific Gravity Urine 1.019 (1.000-1.030); Urobilinogen Urine Negative (Negative)
[2020-03-25 12:58] LABS: BUN Creatinine Ratio 21.8 (10-20); Calcium 8.6 mg/dl (8.5-10.1); Creatinine Clr Calc Pharmacy 33.9 ml/min; Est GFR (African American) 26.2; Est GFR (Non-African American) 22.6; Potassium 3.8 mmol/L (3.5-5.1)
[2020-03-25 13:06] LABS: Albumin Globulin Ratio 0.7 (0.9-2); Bilirubin,Total 1.1 mg/dl (0.2-1); Globulin 4.5 gm/dl (2.5-4.0); Total Protein 7.5 gm/dl (6.4-8.2); Troponin I 0.026 ng/ml (0-0.045)
[2020-03-25 13:16] LABS: INR 2.1 (0.9-1.1); Prothrombin Time 21.7 Seconds (9.0-12.0)
--- NOTE | 2020-03-25 13:16 | XRay Report ---
SINGLE VIEW CHEST CLINICAL HISTORY: Dyspnea. FINDINGS: An AP, portable, upright chest radiograph is compared to study dated 12/29/2019. The examina tion is degraded by portable technique and patient rotation. The heart is enlarged noting atheroscler otic calcification of the thoracic aorta. There is pulmonary vascular congestion with evidence of int erstitial edema. Atelectasis is noted at the lung bases. No large pleural effusion or pneumothorax is seen. The skeletal structures are osteopenic. The bony thorax is grossly intact. IMPRESSION: Cardiomegaly with evidence of congestive failure and interstitial edema. ACT 112: Negative or not required by law. Electronically signed by: Jayce Patterson M.D. 03/25/2020 1:15 PM
[2020-03-25 13:19] LABS: Influenza A virus by PCR Negative (Negative); Influenza B virus by PCR Negative (Negative)
[2020-03-25 13:29] LABS: Partial Thromboplastin Time 56.4 Seconds (21.0-31.0)
--- NOTE | 2020-03-25 14:03 | History & Physical Report ---
Date of Service March 25, 2020 Assessment & Plan (1) Acute and chronic respiratory failure with hypoxia: Patient presents with increased oxygen requirement and respiratory distress. Initial chest x-ray does not show infiltrates but looks to be volume overloaded versus atypical viral infection. Patient was given diuretics and supplemental oxygen in the emergency department as well as Solu-Medrol 125. Currently Covid test is negative. She did have a significant diuresis and reportedly did omit taking her diuretics this morning. To this end we will give intravenous Diuril and followed by Bumex. He is augmented on oxygen she will be ordered CPAP for night if she decompensates she may be noninvasive positive pressure ventilation during the day (2) Fever: Patient is a temperature here for the last 24 hours possible sources include urine or skin. She did have a negative Covid test to me will test for bio fire viral infection. cultures were obtained. her legs are certainly markedly abnormal and could be the portal of entry for infection To this and will use daptomycin and Zosyn covering for diabetic foot infections. The patient has a history of MSSA but no history of MRSA as far as we can see with chart review (3) History of deep venous thrombosis or pulmonary embolus: Patient is on Coumadin therapeutically anticoagulate on presentation her Coumadin will be continued with daily surveillance of INR (4) Obstructive sleep apnea syndrome: Patient wears CPAP at night with oxygen bleed and this will be ordered in our facility (5) CHF (congestive heart failure): Heart failure preserved ejection fraction with volume overload seen on chest x-ray. Her Bumex will be converted from oral to IV 3 mg twice a day with continue potassium supplementation following renal function (6) Venous stasis ulcers of both lower extremities: Wound care nurse will be employed to help with her lower extremity wounds and also assess her buttocks irritation (7) Diabetes: Patient be placed on basal bolus insulin with sliding scale coverage (8) Depression: Lexapro continues for depression (9) COPD (chronic obstructive pulmonary disease): Patient will be on Solu-Medrol 40 every 12 hours with duo nebs frequently (10) Hypothyroidism: On significant doses of Synthroid to 75 mcg (11) Morbid obesity: Certainly her morbid obesity with a BMI of 54 impacts her respiratory status and difficulty managing her. History of Present Illness T Primary Care Provider: Jorge Barney MD 74-year-old female with a history of CHF and COPD presenting with difficulty breathing since yesterday. The patient states that her symptoms are constant. They are slightly better after receiving a DuoNeb in the ambulance. Per EMS she did have an associated fever today. She does state that she did not take her Lasix this morning and did not use her CPAP last night. Patient does not think her legs are significantly worse but cannot rule it out. She also does think that her urine is changed recently being a different color without urgency incontinence or foul smell. She was recently placed on Bactrim for an infection to her right leg. She did start that 06/24/2019. she denies any chest discomfort or pain, cough or cold symptoms, in the ER she is at negative testing to COVID-19, abdominal pain, vomiting or diarrhea. She does not normally use oxygen except when using her CPAP at night for sleep apnea. She denies any loss of taste or smell. Upon our evaluation her legs are chronically changed with open areas and could be a possible portal of infection. Her urine is mildly abnormal which could also be a source of infection. She appears to be in moderate respiratory distress with an attempt to have more mobilization of fluid with intravenous diuretics. And treat her broadly with daptomycin and Zosyn for diabetic leg infection pending her urine culture. Allergies Allergy/AdvReac Type Severity Reaction Status Date / Time ibuprofen Allergy Intermediate HIVES Verified 03/25/20 12:54 lisinopril AdvReac Mild COUGH Verified 03/25/20 12:54 zolpidem AdvReac Mild drowsinesss Verified 03/25/20 12:54 pramipexole AdvReac Unknown Unknown Verified 03/25/20 12:54 Home Medications Home Medications Medication Instructions Recorded Confirmed Type aspirin [Aspirin Low Dose] 81 mg PO HS #0 07/25/17 03/25/20 History cholecalciferol (vitamin D3) 3,000 unit PO QAM #0 tab 07/25/17 03/25/20 History [Vitamin D3] cyanocobalamin (vitamin B-12) 1,000 mcg PO QAM #0 tab 07/25/17 03/25/20 History [Vitamin B-12] acetaminophen 500 mg capsule 500 mg PO Q6H PRN 04/06/19 03/25/20 History ferrous sulfate 325 mg (65 mg 325 mg PO DAILY 06/15/19 03/25/20 History iron) tablet levalbuterol HCl 0.63 mg/3 mL 0.63 mg INH Q6H PRN #36 ml 06/15/19 03/25/20 Rx solution for nebulization labetalol 600 mg PO BID #720 tab 08/01/19 03/25/20 Rx levothyroxine 75 mcg tablet 75 mcg PO QAM #90 tab 09/08/19 03/25/20 Rx blood-glucose meter #1 ea 09/29/19 03/25/20 Rx allopurinol 100 mg tablet 100 mg PO DAILY #30 tab 10/08/19 03/25/20 Rx escitalopram oxalate 10 mg tablet 10 mg PO DAILY #90 tab 10/19/19 03/25/20 Rx ropinirole 1 mg tablet 1 mg PO HS #90 tab 10/19/19 03/25/20 Rx blood sugar diagnostic See Rx Instructions .ROUTE 11/03/19 03/25/20 Rx .COMPLEX #300 strip cyclobenzaprine 5 mg tablet 5 mg PO HS PRN #30 tab 11/16/19 03/25/20 Rx metolazone 2.5 mg tablet 2.5 mg PO DAILY PRN #15 tab 11/19/19 03/25/20 Rx insulin aspart U-100 100 unit/mL See Rx Instructions SQ .COMPLEX 11/24/19 03/25/20 Rx (3 mL) subcutaneous pen #30 ml fluticasone furoate 200 1 puffs INH DAILY #60 ea 12/03/19 03/25/20 Rx mcg-vilanterol 25 mcg/dose inhalation powder potassium chloride 20 mEq 20 meq PO BID #180 tab 12/14/19 03/25/20 Rx tablet,extended release(part/cryst) atorvastatin 10 mg tablet 10 mg PO DAILY 01/15/20 03/25/20 History insulin glargine 100 unit/mL (3 40 unit SUBCUT QPM ml 01/15/20 03/25/20 History mL) subcutaneous pen melatonin 3 mg tablet 9 mg PO HS PRN tab 01/15/20 03/25/20 History pantoprazole 40 mg tablet,delayed 40 mg PO DAILY 01/15/20 03/25/20 History release simvastatin 20 mg tablet 20 mg PO PM #90 tab 01/26/20 03/25/20 Rx buspirone 5 mg tablet 5 mg PO BID PRN #60 tab 02/02/20 03/25/20 Rx nystatin 100,000 unit/gram topical 1 applic TOPICAL TID #30 g 02/24/20 03/25/20 Rx powder diclofenac sodium 1 % topical gel 2 g TOP QID #100 g 03/01/20 03/25/20 Rx levothyroxine 200 mcg tablet 200 mcg PO QAM #90 tab 03/08/20 03/25/20 Rx warfarin 5 mg tablet 2.5 mg PO 5XWK tab 03/16/20 03/25/20 History hydroxyzine HCl 25 mg tablet 25 mg PO HS PRN #30 tab 03/21/20 03/25/20 Rx sulfamethoxazole 400 1 tab PO BID 14 Days #28 tab 03/23/20 03/25/20 Rx mg-trimethoprim 80 mg tablet albuterol sulfate 90 mcg/actuation 2 puff INHALATION Q4H PRN #18 gm 03/24/20 03/25/20 Rx aerosol inhaler bumetanide 2 mg PO QPM 03/25/20 03/25/20 History bumetanide 4 mg PO QAM 03/25/20 03/25/20 History Past Med/Surg History Medical History (Updated 03/25/20 @ 14:00 by Dion Smith MD) Abdominal pain Acute kidney injury Anemia Arthritis CHF (congestive heart failure) Chronic GERD Chronic kidney disease, stage III (moderate) COPD (chronic obstructive pulmonary disease) Depression Diabetes Diabetic neuropathy Health care maintenance Hemorrhoids HTN (hypertension) Hyperlipidemia Hypothyroidism Left bundle branch block Lymphedema Mild mitral stenosis Mitral regurgitation Morbid obesity SHELIA on CPAP Osteopenia Proteus infection Restless leg syndrome Sleep apnea Stage III chronic kidney disease Urinary incontinence Venous insufficiency Vitamin D deficiency Vulvar cyst Vulvovaginitis Surgical History H/O hysterectomy with oophorectomy History of cataract surgery History of cholecystectomy Family History Mother Diabetes Colon cancer Lung cancer Father Esophageal cancer Other Hypertension Denies family history of Ovarian cancer Prostate cancer Myocardial infarction Breast cancer Social History Smoking Status: Never smoker Second Hand Exposure: No; Hx Alcohol Use: No Hx Substance Use: No Preferred Language: Croatian Communication Ability: Effective Visual Impairment: No Limitations Hearing Ability: Normal Street Car Inspector Required: No Beliefs That Will Affect Care: None marital status: Current Living Situation: Alone Current Living Situation Comment: [employer] current occupational status: retired How many Children do You have: 4 How many Children do You have Comment: children are local and able to assist as needed Feels Safe at Home: Yes during the past year weight has: remained stable Seatbelt Use: always Assistive Devices: Glasses, Oxygen - Continuous and Walker Review of Systems Review of Systems: Moderate respiratory distress and fatigue no headache, blurry or double vision no speech or swallowing issues no chest pain, pressure or palpitations Distress while at rest she has got audible coarse breath sounds no abdominal pain, nausea or vomiting, diarrhea or constipation Patient feels she is a change in the quality of her urine Fern bilateral lower extremity swelling no back pain, CVA tenderness or radicular pain He is to her skin on her bilateral ischial areas some intertrigo to her left body fold of her abdomen and bilateral lower extremity chronic venous stasis changes with open areas that are draining no focal signs of weakness or numbness or altered sensation no complaints of anxiety or depression. Physical Exam Physical Exam: The patient is in moderate distress, respiratory, she is very uncomfortable she is auditory breath sounds which are coarse he is tachypneic Vital signs as documented. Head exam is normocephalic atraumatic no scleral icterus Neck is short in stature with difficulty with to assess for JVD, thyromegaly, or carotid bruits. Lungs are coarse with poor air movement throughout Cardiac exam, Rhythm is regular distant Abdominal exam reveals normal bowel sounds, soft non tender, no masses Extremities are significantly edematous and both extremities are erythematous circumferentially with open areas pedal pulses are present Neurologic exam is alert and oriented, no focal loss of strength or sensation Skin is with dry go to the left subpannus fold and open areas to her lower legs with venous stasis dermatitis seen Psychologically is without concerns for depression. Results & Data Results & Data ([facility]) Vital Signs (Past 12 Hours) Vital Signs Temp Pulse Pulse Resp BP BP Pulse Ox 03/25/20 13:13 110 H 24 140/71 92 03/25/20 12:31 101.7 F H 110 H 22 134/78 88 L 10/23/20 12:24 92 PG Care Time/CCT Total # of Minutes Spent Total Time Spent with Patient: Total time spent is greater than 50% in coordination of care (as documented) at patient's floor/unit and/or counseling patient: Coding Level of Care Code 60214 Initial Inpt Care Lvl 3 Diagnoses Acute and chronic respiratory failure with hypoxia J96.21 Fever R50.9 History of deep venous thrombosis or pulmonary embolus Obstructive sleep apnea syndrome G47.33 CHF (congestive heart failure) I50.32 Heart failure chronicity: chronic Heart failure type: diastolic Venous stasis ulcers of both lower extremities I83.019; I83.029; L97.919; L97.929 Diabetes E11.22; N18.3; Z79.4 Chronic kidney disease stage: stage 3 (moderate) Diabetes mellitus complication detail: with chronic kidney disease Diabetes mellitus complication status: with kidney complications Diabetes mellitus fpc insulin use: with terminal superintendent use Diabetes mellitus type: type 2 Depression F32.9 COPD (chronic obstructive pulmonary disease) J44.9 Hypothyroidism E03.9 Hypothyroidism type: unspecified Morbid obesity E66.01 (1) Diabetes Chronic kidney disease stage: stage 3 (moderate) Diabetes mellitus complication detail: with chronic kidney disease Diabetes mellitus complication status: with kidney complications Diabetes mellitus fpc insulin use: with terminal superintendent use Diabetes mellitus type: type 2 Qualified Code(s): E11.22 - Type 2 diabetes mellitus with diabetic chronic kidney disease; N18.3 - Chronic kidney disease, stage 3 (moderate); Z79.4 - penitentiary (current) use of insulin (2) CHF (congestive heart failure) Heart failure chronicity: chronic Heart failure type: diastolic Qualified Code(s): I50.32 - Chronic diastolic (congestive) heart failure (3) Hypothyroidism Hypothyroidism type: unspecified Qualified Code(s): E03.9 - Hypothyroidism, unspecified
--- NOTE | 2020-03-25 14:14 | Electrocardiogram Report ---
Test Reason : Blood Pressure : / mmHG Vent. Rate : 115 BPM Atrial Rate : 115 BPM P-R Int : 158 ms QRS Dur : 132 ms QT Int : 360 ms P-R-T Axes : 036 -05 092 degrees QTc Int : 498 ms Sinus tachycardia Left bundle branch block Abnormal ECG When compared with ECG of 05-JAN-2020 15:46, HR has increased by 21 bpm Otherwise no significant change Confirmed by Kenrick Vega ([id number]) on 03/25/2020 2:13:46 PM Referred By: Confirmed By:Kenrick Vega
[2020-03-25] MEDS ORDERED: BUMETANIDE 4 MG in SYRINGE 0 ML IV ONE (15:05)
[2020-03-25] MEDS ORDERED: CHLOROTHIAZIDE SODIUM 500 MG in DEXTROSE 5% 50 ML IV ONE (15:17)
[2020-03-25] MEDS ORDERED: DEXTROSE 50% 50 ML SYRINGE IV PRN (16:11)
[2020-03-25] MEDS ORDERED: POLYETHYLENE (MIRALAX) 17 GM PACK PO PRN (16:11)
[2020-03-25] MEDS ORDERED: GLUCOSE 10 TABS/TUBE PO PRN (16:11)
[2020-03-25] MEDS ORDERED: CARBOHYDRATES FOR HYPOGLYCEMIA PO PRN (16:11)
[2020-03-25] MEDS ORDERED: GLUCAGON FOR INJ 1 MG VIAL SQ PRN (16:11)
[2020-03-25] MEDS ORDERED: PIPERACILL/TAZOBAC CONSULT ACTIVE PRN (16:11)
[2020-03-25] MEDS ORDERED: busPIRone 5 MG TAB PO PRN (16:11)
[2020-03-25] MEDS ORDERED: ONDANSETRON INJ 2 MG/ML 2 ML VIAL IV PRN (16:11)
[2020-03-25] MEDS ORDERED: ALBUTEROL HFA 8 GM INHALER INH PRN (16:11)
[2020-03-25] MEDS ORDERED: GLUCOSE 40% GEL 15 GM TUBE PO PRN (16:11)
[2020-03-25] MEDS ORDERED: PHARMACY GLYCEMIC MGMT CONSULT PRN (16:27)
[2020-03-25] MEDS: ACETAMINOPHEN 325 MG TAB PO PRN ×2 (16:33→21:59)
[2020-03-25 16:35] LABS: Adenovirus PCR Not Detected (NotDetected); Bordetella parapertussis PCR Not Detected (NotDetected); Bordetella pertussis PCR Not Detected (NotDetected); Chlamydia pneumoniae PCR Not Detected (NotDetected); Coronavirus 229E PCR Not Detected (NotDetected); Coronavirus CoV-2 (COVID19)PCR Not Detected (NotDetected); Coronavirus HKU1 PCR Not Detected (NotDetected); Coronavirus NL63 PCR Not Detected (NotDetected); Coronavirus OC43PCR Not Detected (NotDetected); Human Metapneumovirus PCR Not Detected (NotDetected); Influenza A PCR Not Detected (NotDetected); Influenza B PCR Not Detected (NotDetected); Mycoplasma pneumoniae PCR Not Detected (NotDetected); Parainfluenza Virus 1 PCR Not Detected (NotDetected); Parainfluenza Virus 2 PCR Not Detected (NotDetected); Parainfluenza Virus 3 PCR Not Detected (NotDetected); Parainfluenza Virus 4 PCR Not Detected (NotDetected); Respiratory Syncytial VirusPCR Not Detected (NotDetected); Rhinovirus/Enterovirus PCR Not Detected (NotDetected)
[2020-03-25] MEDS ORDERED: cefTRIAXone SODIUM 2,000 MG/70 ML BAG IV ONE (16:45)
--- NOTE | 2020-03-25 16:55 | Pharmacy Report ---
Pharmacy Glycemic Short Note 2 - Date of Service March 25, 2020 - Glycemic Short BSG Results (Last 24 hours): 03/25/20 03/25/20 12:25 16:09 Glucose 154 H POC Glucose 204 H OUTPATIENT ANTIDIABETIC REGIMEN: * Basaglar 40 units SQ PM * NovoLog 20 units SQ TIDM (up to 80 units/day) * Total daily dose ~ 120 units/day ASSESSMENT: * 74 yo T2DM female well known to pharmacy from previous admissions/glycemic c onsults. Most recently in both July and December of this year. * Patient's insulin needs per July admission were ~ 200 units/day with Solumedrol 40mg IV BID ordered * Patient's insulin needs per December admission were averaging 90-130 units/day. No steroids ordered this admission * Pt received a one time dose of Solumedrol 125mg IV in ED and is ordered Solumedrol 40mg IV BID ongoing. * Will mirror dosing regimen from 07/2019 admission and titrate based on BSG trends. PLAN FOR INPATIENT GLYCEMIC CONTROL: * Basal insulin * Lantus 70 units SQ x 1 dose tonight then 50units SQ BID starting tomorrow * Bolus insulin * NovoLog per scale ACHS or Q6hrs while NPO * Goal Range: Low 110 mg/dL - High 140 mg/dL * Correction Factor: 8 mg/dL/unit * Nutritional / Prandial insulin per carb ratio of 1 unit per 2 grams CHO consumed
[2020-03-25] MEDS ORDERED: INSULIN GLARGINE SOLOSTAR 100 UNITS/ML 3 ML PEN SQ ONE (17:00)
[2020-03-25] MEDS ORDERED: PIPERACILLIN/TAZOBACTAM 4.5 GM/120 ML BAG IV ONE (17:00)
[2020-03-25] MEDS: INSULIN ASPART 100 UNITS/ML 3 ML PEN SC SCH ×2 (17:30→20:27)
[2020-03-25] MEDS: NYSTATIN POWDER 15GM BTL EXT SCH ×2 (17:30→20:01)
[2020-03-25] MEDS: DICLOFENAC SOD 1% GEL 100 GM TUBE EXT SCH ×2 (17:30→20:01)
[2020-03-25] MEDS ORDERED: DAPTOmycin 350 MG in SYRINGE 0 ML IV SCH (18:00)
[2020-03-25] MEDS: ALBUT/IPRATROP 3MG/0.5MG NEB 3 ML VIAL NEB SCH ×2 (19:00→22:12)
[2020-03-25] MEDS: rOPINIRole HCL 1 MG TABLET PO SCH (20:02)
[2020-03-25] MEDS: POTASSIUM CHLORIDE CRTAB 20 MEQ TABCR PO SCH (20:02)
[2020-03-25] MEDS: LABETALOL HCL 300 MG TAB PO SCH (20:03)
[2020-03-25] MEDS: ASPIRIN 81 MG ECTAB PO SCH (20:03)
[2020-03-25] MEDS: methylPREDNISolone 40 MG in SYRINGE 0 ML IV SCH (20:03)
[2020-03-25] MEDS ORDERED: SIMVASTATIN 20 MG TAB PO SCH (21:00)
[2020-03-25] MEDS ORDERED: INSULIN GLARGINE SOLOSTAR 100 UNITS/ML 3 ML PEN SQ SCH (21:00)
[2020-03-25] MEDS ORDERED: BUMETANIDE 1 MG TAB PO SCH (21:00)
[2020-03-25] MEDS: PIPERACILLIN/TAZOBACTAM 4.5 GM in DEXTROSE 5% 100 ML IV SCH (22:00)
[2020-03-26] MEDS: INSULIN ASPART 100 UNITS/ML 3 ML PEN SC SCH ×6 (00:02→19:49)
[2020-03-26] MEDS: ALBUT/IPRATROP 3MG/0.5MG NEB 3 ML VIAL NEB SCH ×6 (03:01→23:03)
[2020-03-26] MEDS: PIPERACILLIN/TAZOBACTAM 4.5 GM in DEXTROSE 5% 100 ML IV SCH ×3 (06:05→21:38)
[2020-03-26] MEDS: LEVOTHYROXINE SODIUM 200 MCG TABLET PO SCH (06:07)
[2020-03-26] MEDS: LEVOTHYROXINE SODIUM 75 MCG TABLET PO SCH (06:08)
[2020-03-26 06:26] LABS: Hematocrit (blood only) 36.5 % (37-47); Hemoglobin 11.6 g/dL (12.0-16.0); Mean Corpuscular Hemoglobin 27.4 pg (25-34); Mean Corpuscular Hgb Conc 31.8 g/dL (32-36); Mean Corpuscular Volume 86.3 fL (80-100); Mean Platelet Volume 10.2 fL (7.4-10.4); Platelet Count 265 K/uL (130-400); RDW Coefficient of Variation 18.2 % (11.5-14.5); RDW Standard Deviation 58.2 fL (36.4-46.3); Red Blood Count 4.23 M/uL (4.2-5.4); White Blood Count 17.46 K/uL (4.8-10.8)
[2020-03-26 06:33] LABS: INR 1.9 (0.9-1.1); Prothrombin Time 19.4 Seconds (9.0-12.0)
[2020-03-26 06:51] LABS: Estimated Average Glucose 177 mg/dl; Hemoglobin A1C 7.8 % (4.5-5.6)
[2020-03-26 06:59] LABS: BUN Creatinine Ratio 22.7 (10-20); Calcium 8.6 mg/dl (8.5-10.1); Creatinine Clr Calc Pharmacy 25.1 ml/min; Est GFR (African American) 20.2; Est GFR (Non-African American) 17.4; Potassium 3.1 mmol/L (3.5-5.1)
[2020-03-26 07:10] LABS: Troponin I 0.049 ng/ml (0-0.045)
[2020-03-26] MEDS: NYSTATIN POWDER 15GM BTL EXT SCH ×3 (08:28→19:35)
[2020-03-26] MEDS: FLUTICASONE/VILANTEROL 200/25MCG 14 PUFFS/INHALER INH SCH (08:28)
[2020-03-26] MEDS: methylPREDNISolone 40 MG in SYRINGE 0 ML IV SCH (08:29)
[2020-03-26] MEDS: DICLOFENAC SOD 1% GEL 100 GM TUBE EXT SCH ×4 (08:29→19:35)
[2020-03-26] MEDS: BUMETANIDE 3 MG in SYRINGE 0 ML IV SCH ×2 (08:29→16:57)
[2020-03-26] MEDS: ATORVASTATIN 10 MG TAB PO SCH (08:30)
[2020-03-26] MEDS: LABETALOL HCL 300 MG TAB PO SCH ×2 (08:30→19:37)
[2020-03-26] MEDS: CHOLECALCIFEROL 1,000 UNITS 25 MCG TAB PO SCH (08:30)
[2020-03-26] MEDS: CYANOCOBALAMIN 500 MCG TABLET (VITAMIN B-12) PO SCH (08:30)
[2020-03-26] MEDS: PANTOprazole 40 MG TAB PO SCH (08:30)
[2020-03-26] MEDS: POTASSIUM CHLORIDE CRTAB 20 MEQ TABCR PO SCH ×2 (08:30→19:37)
[2020-03-26] MEDS: ESCITALOPRAM OXALATE 10 MG TAB PO SCH (08:30)
[2020-03-26] MEDS ORDERED: BUMETANIDE 1 MG TAB PO SCH (09:00)
[2020-03-26] MEDS ORDERED: INSULIN GLARGINE SOLOSTAR 100 UNITS/ML 3 ML PEN SQ SCH ×2 (09:00)
--- NOTE | 2020-03-26 09:55 | Pharmacy Report ---
Pharmacy Glycemic Short Note 2 - Date of Service March 26, 2020 - Glycemic Short BSG Results (Last 24 hours): 03/25/20 03/25/20 03/25/20 12:25 16:09 20:14 Glucose 154 H POC Glucose 204 H 331 H* 03/25/20 03/25/20 03/26/20 20:16 23:54 03:51 Glucose POC Glucose 315 H* 263 H 276 H 03/26/20 03/26/20 03/26/20 06:04 07:30 07:32 Glucose 292 H POC Glucose 304 H* 297 H OUTPATIENT ANTIDIABETIC REGIMEN: * Basaglar 40 units SQ PM * NovoLog 20 units SQ TIDM (up to 80 units/day) * Total daily dose ~ 120 units/day ASSESSMENT: * 74 yo T2DM female well known to pharmacy from previous admissions/glycemic consults. Most recently in both July and December of this year. * Patient's insulin needs per July admission were ~ 200 units/day with Solumedrol 40mg IV BID ordered * Patient's insulin needs per December admission were averaging 90-130 units/day. No steroids ordered this admission * Pt received a one time dose of Solumedrol 125mg IV in ED and is ordered Solumedrol 40mg IV BID ongoing. * Will mirror dosing regimen from 07/2019 admission and titrate based on BSG trends. 03/26 * Patient received total of 110 units of insulin yesterday, of which 70 were basal * BSGs trending up quickly with steroids - Fasting BSG 292 mg/dL / will increase to 60 units basal this AM, then have scale for HS dosing * Continue same CF/CR for now PLAN FOR INPATIENT GLYCEMIC CONTROL: * Basal insulin * 40-60 units BID based upon BSG value * Bolus insulin * NovoLog per scale ACHS or Q6hrs while NPO * Goal Range: Low 110 mg/dL - High 140 mg/dL * Correction Factor: 8 mg/dL/unit * Nutritional / Prandial insulin per carb ratio of 1 unit per 2 grams CHO consumed
[2020-03-26] MEDS: WARFARIN SOD 2.5 MG TAB PO SCH (15:11)
--- NOTE | 2020-03-26 17:33 | Hospitalist Progress Note ---
Date of Service March 26, 2020 Assessment & Plan (1) Acute and chronic respiratory failure with hypoxia: Patient presents with increased oxygen requirement and respiratory distress. Initial chest x-ray does not show infiltrates but looks to be volume overloaded versus atypical viral infection. Patient was given diuretics and supplemental oxygen in the emergency department as well as Solu-Medrol 125. Currently Covid test is negative. She did have a significant diuresis and reportedly did omit taking her diuretics AM of admission. IV Bumex. Baseline O2 use is HS only with CPAP. None during the day (2) Fever: Patient is a temperature here for the last 24 hours possible sources include urine or skin. She did have a negative Covid test to me will test for bio fire viral infection. Blood cultures pending her legs are certainly markedly abnormal and could be the portal of entry for infection [facility] pending To this and will use daptomycin and Zosyn covering for diabetic foot infections. The patient has a history of MSSA but no history of MRSA as far as we can see with chart review WBC elevated on admission and slightly improved s/p above UA with tr leuk est, neg nitrites, cx pending Lactic acid WNL Procal elevated (3) History of deep venous thrombosis or pulmonary embolus: Patient is on Coumadin Currently therapeutic Monitor INR daily (4) Obstructive sleep apnea syndrome: Patient wears CPAP at night with oxygen (5) CHF (congestive heart failure): Heart failure preserved ejection fraction with volume overload seen on chest x-ray. Her Bumex will be converted from oral to IV 3 mg twice a day with continue potassium supplementation following renal function (6) Venous stasis ulcers of both lower extremities: Wound care nurse will be employed to help with her lower extremity wounds and also assess her buttocks irritation (7) Diabetes: Patient be placed on basal bolus insulin with sliding scale coverage A1c 7.8 (8) Depression: Lexapro (9) COPD (chronic obstructive pulmonary disease): Patient will be on Solu-Medrol 40 every 12 hours with duo nebs frequently -> prednisone 20mg BID for a quick taper given elevated BS (10) Hypothyroidism: Synthroid 75 mcg (11) Morbid obesity: Certainly her morbid obesity with a BMI of 54 impacts her respiratory status and difficulty managing her. (12) Chronic kidney disease, stage III (moderate): Baseline cr 1.4-1.8 Appears in mild SONIA, with hx of same during admissions Monitor Admission and Anticipated Discharge Date Admission Date: March 25, 2020 Subjective Pt states she feels better overall. "I just don't feel as sick." She states she is breathing better and feels like she is catching a better breath. No SOB at rest and less with exertion. Tolerating PO without issue. Pt denies fever, chest pain, abd pain, n/v/c/d, LE pain or swelling. Review of Systems Review of Systems: Pertinent positives and negatives reviewed in HPI--all others negative Physical Exam Constitutional: WD/WN, vitals as above Eyes: normal visual barnes by confrontation and + anicteric sclerae Neck: normal visual inspection and trachea midline Respiratory: normal respiratory effort; no respiratory distress and no labored breathing Auscultation: + diminished lung sounds, + crackles and + wheezes (trace) Cardiovascular: Rate/Rhythm: regular rate and regular rhythm Gastrointestinal (Abdomen): Inspection/Auscultation: abdomen not distended Percussion/Palpation: abdomen soft; abdomen nontender Musculoskeletal: Head/Neck/Chest: normocephalic and head atraumatic negative for edema, peripheral pulses intact Skin: no rashes, warm and dry Neurologic: awake; not confused Speech / Cognition: normal speech Psychiatric: A+Ox3, euthymic affect Results & Data Results & Data ([facility]) Vital Signs (Past 12 Hours) Vital Signs Temp Pulse Pulse Pulse Pulse Resp BP 03/26/20 15:38 86 22 03/26/20 15:16 139/63 03/26/20 15:04 36.7 C 93 H 22 181/64 H 03/26/20 11:00 36.7 C 96 H 22 111/63 03/26/20 10:58 87 20 03/26/20 07:48 36.6 C 87 18 114/63 03/26/20 07:13 83 18 03/26/20 07:00 77 Pulse Ox 03/26/20 15:38 91 03/26/20 15:16 03/26/20 15:04 94 03/26/20 11:00 87 L 03/26/20 10:58 89 L 03/26/20 07:48 93 03/26/20 07:13 91 03/26/20 07:00 PG Care Time/CCT Total # of Minutes Spent Total Time Spent with Patient: Total time spent is greater than 50% in coordinat ion of care (as documented) at patient's floor/unit and/or counseling patient: Coding Level of Care Code 24585 Subseq Hosp Care Lvl 3 Diagnoses Acute and chronic respiratory failure with hypoxia J96.21 Fever R50.9 History of deep venous thrombosis or pulmonary embolus Obstructive sleep apnea syndrome G47.33 CHF (congestive heart failure) I50.32 Heart failure type: diastolic Heart failure chronicity: chronic Venous stasis ulcers of both lower extremities I83.019; I83.029; L97.919; L97.929 Diabetes E11.22; N18.3; Z79.4 Diabetes mellitus type: type 2 Diabetes mellitus rat exterminator insulin use: with [facility] use Diabetes mellitus complication status: with kidney complications Diabetes mellitus complication detail: with chronic kidney disease Chronic kidney disease stage: stage 3 (moderate) Depression F32.9 COPD (chronic obstructive pulmonary disease) J44.9 Hypothyroidism E03.9 Hypothyroidism type: unspecified Morbid obesity E66.01 Chronic kidney disease, stage III (moderate) N18.3 (1) CHF (congestive heart failure) Heart failure type: diastolic Heart failure chronicity: chronic Qualified Code(s): I50.32 - Chronic diastolic (congestive) heart failure (2) Diabetes Diabetes mellitus type: type 2 Diabetes mellitus [facility] insulin use: with rat exterminator use Diabetes mellitus complication status: with kidney complications Diabetes mellitus complication detail: with chronic kidney disease Chronic kidney disease stage: stage 3 (moderate) Qualified Code(s): E11.22 - Type 2 diabetes mellitus with diabetic chronic kidney disease; N18.3 - Chronic kidney disease, stage 3 (moderate); Z79.4 - correction (current) use of insulin (3) Hypothyroidism Hypothyroidism type: unspecified Qualified Code(s): E03.9 - Hypothyroidism, unspecified
[2020-03-26] MEDS: ASPIRIN 81 MG ECTAB PO SCH (19:36)
[2020-03-26] MEDS: rOPINIRole HCL 1 MG TABLET PO SCH (19:37)
[2020-03-26] MEDS: predniSONE 20 MG TAB PO SCH (19:49)
[2020-03-26] MEDS: INSULIN GLARGINE SOLOSTAR 100 UNITS/ML 3 ML PEN SQ SCH (19:49)
[2020-03-26] MEDS: ACETAMINOPHEN 325 MG TAB PO PRN (21:23)
[2020-03-26] MEDS ORDERED: ALUMINUM/MAGNESIUM/SIMETH (MAALOX MAX) 30 ML UDC PO PRN (21:25)
[2020-03-26] MEDS: SIMETHICONE 80 MG CHEW PO PRN (21:34)
[2020-03-26] MEDS: MELATONIN 3 MG TAB PO PRN (22:09)
[2020-03-27] MEDS: INSULIN ASPART 100 UNITS/ML 3 ML PEN SC SCH ×6 (00:18→19:26)
[2020-03-27] MEDS: ALBUT/IPRATROP 3MG/0.5MG NEB 3 ML VIAL NEB SCH ×6 (02:39→22:40)
[2020-03-27] MEDS: LEVOTHYROXINE SODIUM 75 MCG TABLET PO SCH (06:12)
[2020-03-27] MEDS: LEVOTHYROXINE SODIUM 200 MCG TABLET PO SCH (06:12)
[2020-03-27] MEDS: PIPERACILLIN/TAZOBACTAM 4.5 GM in DEXTROSE 5% 100 ML IV SCH ×3 (06:12→21:52)
[2020-03-27 06:17] LABS: Hematocrit (blood only) 35.6 % (37-47); Hemoglobin 11.1 g/dL (12.0-16.0); Mean Corpuscular Hemoglobin 27.3 pg (25-34); Mean Corpuscular Hgb Conc 31.2 g/dL (32-36); Mean Corpuscular Volume 87.5 fL (80-100); Mean Platelet Volume 10.9 fL (7.4-10.4); Platelet Count 325 K/uL (130-400); RDW Coefficient of Variation 18.2 % (11.5-14.5); RDW Standard Deviation 59.1 fL (36.4-46.3); Red Blood Count 4.07 M/uL (4.2-5.4); White Blood Count 19.01 K/uL (4.8-10.8)
[2020-03-27 06:32] LABS: INR 2.2 (0.9-1.1); Prothrombin Time 21.8 Seconds (9.0-12.0)
[2020-03-27 06:52] LABS: BUN Creatinine Ratio 30.5 (10-20); Creatinine Clr Calc Pharmacy 25.1 ml/min; Est GFR (African American) 20.1; Est GFR (Non-African American) 17.3
[2020-03-27] MEDS: BUMETANIDE 3 MG in SYRINGE 0 ML IV SCH ×2 (07:37→16:57)
[2020-03-27] MEDS: FLUTICASONE/VILANTEROL 200/25MCG 14 PUFFS/INHALER INH SCH (07:37)
[2020-03-27] MEDS: predniSONE 20 MG TAB PO SCH ×2 (07:38→19:19)
[2020-03-27] MEDS: CHOLECALCIFEROL 1,000 UNITS 25 MCG TAB PO SCH (07:38)
[2020-03-27] MEDS: ATORVASTATIN 10 MG TAB PO SCH (07:38)
[2020-03-27] MEDS: CYANOCOBALAMIN 500 MCG TABLET (VITAMIN B-12) PO SCH (07:39)
[2020-03-27] MEDS: LABETALOL HCL 300 MG TAB PO SCH ×2 (07:39→19:19)
[2020-03-27] MEDS: DICLOFENAC SOD 1% GEL 100 GM TUBE EXT SCH ×4 (07:39→19:18)
[2020-03-27] MEDS: NYSTATIN POWDER 15GM BTL EXT SCH ×3 (07:40→19:18)
[2020-03-27] MEDS: ESCITALOPRAM OXALATE 10 MG TAB PO SCH (07:40)
[2020-03-27] MEDS: PANTOprazole 40 MG TAB PO SCH (07:40)
[2020-03-27] MEDS: INSULIN GLARGINE SOLOSTAR 100 UNITS/ML 3 ML PEN SQ SCH ×2 (08:30→19:26)
[2020-03-27] MEDS: POTASSIUM CHLORIDE CRTAB 20 MEQ TABCR PO SCH ×2 (08:31→19:19)
[2020-03-27] MEDS ORDERED: POTASSIUM PHOS 3 MMOL/1 ML INFUSION IV STA (12:03)
[2020-03-27] MEDS ORDERED: POTASSIUM PHOSPHATE 15 MMOL in SODIUM CHLORIDE 0.9% 250 ML IV ONE (12:30)
[2020-03-27] MEDS: WARFARIN SOD 2.5 MG TAB PO SCH (16:54)
[2020-03-27] MEDS ORDERED: DAPTOmycin 350 MG in SYRINGE 0 ML IV SCH (18:00)
[2020-03-27] MEDS: ASPIRIN 81 MG ECTAB PO SCH (19:19)
[2020-03-27] MEDS: rOPINIRole HCL 1 MG TABLET PO SCH (19:19)
[2020-03-27] MEDS: MELATONIN 3 MG TAB PO PRN (21:52)
[2020-03-28] MEDS ORDERED: INSULIN ASPART 100 UNITS/ML 3 ML PEN SC SCH (02:00)
[2020-03-28] MEDS: ALBUT/IPRATROP 3MG/0.5MG NEB 3 ML VIAL NEB SCH ×6 (03:25→23:04)
[2020-03-28 06:08] LABS: Hemoglobin 11.1 g/dL (12.0-16.0); Mean Corpuscular Hgb Conc 30.8 g/dL (32-36); Mean Corpuscular Volume 87.6 fL (80-100); Mean Platelet Volume 10.9 fL (7.4-10.4); Platelet Count 329 K/uL (130-400); RDW Standard Deviation 58.1 fL (36.4-46.3); Red Blood Count 4.11 M/uL (4.2-5.4); White Blood Count 11.89 K/uL (4.8-10.8)
[2020-03-28] MEDS: LEVOTHYROXINE SODIUM 200 MCG TABLET PO SCH (06:08)
[2020-03-28] MEDS: LEVOTHYROXINE SODIUM 75 MCG TABLET PO SCH (06:08)
[2020-03-28] MEDS: PIPERACILLIN/TAZOBACTAM 4.5 GM in DEXTROSE 5% 100 ML IV SCH ×3 (06:08→21:35)
[2020-03-28 06:20] LABS: INR 2.3 (0.9-1.1); Prothrombin Time 23.6 Seconds (9.0-12.0)
[2020-03-28 06:43] LABS: BUN Creatinine Ratio 35.2 (10-20); Creatinine Clr Calc Pharmacy 26.3 ml/min; Est GFR (African American) 21.4; Est GFR (Non-African American) 18.4; Potassium 3.2 mmol/L (3.5-5.1)
--- NOTE | 2020-03-28 08:04 | XRay Report ---
XR chest 1V portable CLINICAL HISTORY: hypoxia, CHF Exacerbation COMPARISON STUDY: 03/25/2020 FINDINGS: The heart remains enlarged. There is persistent elevation of interstitium suggesting underl lexi pulmonary vascular congestion/fluid overload. There is no lobar consolidation. There are no larg e pleural effusions.[ IMPRESSION: Cardiomegaly and persistent radiographic evidence of congestive failure/fluid overload ACT 112: Negative or not required by law. Electronically signed by: Simon Walter M.D. 03/28/2020 8:03 AM
[2020-03-28] MEDS: ESCITALOPRAM OXALATE 10 MG TAB PO SCH (08:24)
[2020-03-28] MEDS: ATORVASTATIN 10 MG TAB PO SCH (08:24)
[2020-03-28] MEDS: CYANOCOBALAMIN 500 MCG TABLET (VITAMIN B-12) PO SCH (08:24)
[2020-03-28] MEDS: CHOLECALCIFEROL 1,000 UNITS 25 MCG TAB PO SCH (08:24)
[2020-03-28] MEDS: PANTOprazole 40 MG TAB PO SCH (08:25)
[2020-03-28] MEDS: POTASSIUM CHLORIDE CRTAB 20 MEQ TABCR PO SCH ×2 (08:25→19:48)
[2020-03-28] MEDS: BUMETANIDE 3 MG in SYRINGE 0 ML IV SCH (08:25)
[2020-03-28] MEDS: LABETALOL HCL 300 MG TAB PO SCH ×2 (08:25→19:48)
[2020-03-28] MEDS: FLUTICASONE/VILANTEROL 200/25MCG 14 PUFFS/INHALER INH SCH (08:25)
[2020-03-28] MEDS: NYSTATIN POWDER 15GM BTL EXT SCH ×3 (08:26→19:46)
[2020-03-28] MEDS: DICLOFENAC SOD 1% GEL 100 GM TUBE EXT SCH ×4 (08:27→19:47)
[2020-03-28] MEDS: INSULIN ASPART 100 UNITS/ML 3 ML PEN SC SCH ×4 (08:30→20:26)
[2020-03-28] MEDS ORDERED: POTASSIUM CHLORIDE CRTAB 20 MEQ TABCR PO ONE (08:30)
[2020-03-28] MEDS: INSULIN GLARGINE SOLOSTAR 100 UNITS/ML 3 ML PEN SQ SCH ×2 (08:30→20:25)
[2020-03-28] MEDS: POTASSIUM CHLORIDE / WTR 10 MEQ/100 ML PLCT IV SCH ×2 (08:49→10:20)
[2020-03-28] MEDS: predniSONE 20 MG TAB PO SCH (09:16)
[2020-03-28] MEDS ORDERED: BUMETANIDE 1 MG in SYRINGE 0 ML IV ONE (10:45)
--- NOTE | 2020-03-28 10:48 | Hospitalist Progress Note ---
Date of Service March 28, 2020 Assessment & Plan (1) Acute exacerbation of CHF (congestive heart failure): Patient is typically on 4 mg of Bumex in the morning and 2 mg at night at home She was placed on 3 mg twice daily this hospital stay She continues to have poor outflow We will increase Bumex to 4 mg twice daily and follow strict I's and O's and continue metolazone I did have discussion with Lesile Ortega PA-C who follows her in the outpatient CHF clinic They are following along (2) Chronic kidney disease, stage III (moderate): No acute change in creatinine and BUN in spite of increased diuretics Continue to follow serial labs and strict I's and O's (3) COPD (chronic obstructive pulmonary disease): Patient with morbid obesity with a BMI of 47.7 kg/m She reports using CPAP with compliance at home Continue inpatient CPAP Continue Brio Ellipta Discontinue prednisone as patient has no bronchospasm Continue titrate supplemental O2 for an SaO2 of 88 to 92% (4) History of deep venous thrombosis or pulmonary embolus: Patient anticoagulated on warfarin INR is therapeutic at 2.3 No acute complaints (5) Obstructive sleep apnea syndrome: Continue with CPAP as tolerated Encourage use at bedtime and as needed (6) Venous stasis ulcers of both lower extremities: With new open sores Wound care nurses consulted Continue with diuresis and follow (7) 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, with long- term current use of insulin: Humalog and Lantus at home Hemoglobin A1c is 7.8 Continue with Lantus and sliding scale NovoLog while inpatient Continue diabetic diet (8) Hypokalemia: Magnesium is 1.9 Potassium this morning 3.2. This was repleted with p.o. as well as IV riders Follow serial labs (9) Anemia of chronic disease: No active bleeding Continue ferrous sulfate Follow serial labs (10) Diabetic nephropathy: Patient reports no acute pain She is not on gabapentin (Neurontin) at home Continue supportive care (11) DVT prophylaxis: Chronically anticoagulated with warfarin INR currently is 2.3 Encourage out of bed to chair and ambulation as tolerated Please refer to Dr. Dank Rodríguez's addendum for further recommendations Admission and Anticipated Discharge Date Admission Date: March 25, 2020 Subjective Attending: Dr. Dank Rodríguez Is a 74-year-old female that was admitted for acute on chronic respiratory failure. She is reported to have noncompliance with her CPAP at home. She uses chronic supplemental O2 at night only. She has required increased oxygen supplementation during this hospital stay. She typically takes 4 mg of Bumex in the morning and 2 mg of Bumex at night. She follows with the CHF clinic with Leslie Ortega PA-C. She continues to appear fluid overloaded. She has bilateral crackles. No sputum. She denies fever chills. She has no nausea or vomiting. She states that she has not been out of bed this admission. Review of Systems Review of Systems: All systems reviewed & are unremarkable except as noted in Subjective Physical Exam Physical Exam: GENERAL : No acute distress EYES: No icterus, gaze conjugate NOSE: No evidence of epistaxis MOUTH: No lesions or candidiasis NECK: Supple LUNGS: Coarse rales at the bilateral bases. No rhonchi. Marginal inspiratory effort HEART: Regular, rate controlled ABDOMEN: Soft, NT, ND, BS Present EXTREMITIES: LE edema, pedal pulses intact and equal bilaterally NEURO: A&OX3 Results & Data Results & Data ([facility]) Vital Signs (Past 12 Hours) Vital Signs Temp Pulse Pulse Pulse Resp BP Pulse Ox 03/28/20 07:43 36.8 C 76 19 139/72 92 03/28/20 07:22 69 18 92 03/28/20 03:25 74 74 16 91 03/28/20 03:08 36.7 C 80 19 153/76 H 93 03/27/20 23:48 36.7 C 74 19 144/70 H 91 Laboratory Results 03/28/20 05:42 03/28/20 05:42 INR 2.3 (0.9-1.1) H 03/28/20 05:42 Diagnostic Findings XR chest 1V portable CLINICAL HISTORY: hypoxia, CHF Exacerbation COMPARISON STUDY: 03/25/2020 FINDINGS: The heart remains enlarged. There is persistent elevation of interstitium suggesting underlying pulmonary vascular congestion/fluid overload. There is no lobar consolidation. There are no large pleural effusions.[ IMPRESSION: Cardiomegaly and persistent radiographic evidence of congestive failure/fluid overload ACT 112: Negative or not required by law. Electronically signed by: Simon Walter M.D. 03/28/2020 8:03 AM PG Care Time/CCT Total # of Minutes Spent Total Time Spent with Patient: Total time spent is greater than 50% in coordination of care (as documented) at patient's floor/unit and/or counseling patient: 35 minutes including discussion with other providers and nursing staff in addition to patient. Coding Level of Care Code 76425 Subseq Hosp Care Lvl 3 Diagnoses Acute exacerbation of CHF (congestive heart failure) I50.9 Heart failure type: unspecified Chronic kidney disease, stage III (moderate) N18.3 COPD (chronic obstructive pulmonary disease) J44.9 History of deep venous thrombosis or pulmonary embolus Obstructive sleep apnea syndrome G47.33 Venous stasis ulcers of both lower extremities I83.019; I83.029; L97.919; L97.929 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, with long-term current use of insulin E11.29; E11.65; Z79.4 Hypokalemia E87.6 Anemia of chronic disease D63.8 Diabetic nephropathy E11.21 Diabetes mellitus type: type 2 DVT prophylaxis Z29.9 Time Spent (min) 35 (1) Acute exacerbation of CHF (congestive heart failure) Heart failure type: unspecified Qualified Code(s): I50.9 - Heart failure, unspecified (2) Diabetic nephropathy Diabetes mellitus type: type 2 Qualified Code(s): E11.21 - Type 2 diabetes mellitus with diabetic nephropathy
--- NOTE | 2020-03-28 14:49 | Pharmacy Report ---
Pharmacy Glycemic Short Note 2 - Date of Service March 28, 2020 - Glycemic Short BSG Results (Last 24 hours): 03/27/20 03/27/20 03/28/20 16:30 19:24 02:26 Glucose POC Glucose 250 H 293 H 149 H 03/28/20 03/28/20 03/28/20 05:42 07:29 11:33 Glucose 157 H POC Glucose 151 H 166 H OUTPATIENT ANTIDIABETIC REGIMEN: * Basaglar 40 units SQ PM * NovoLog 20 units SQ TIDM (up to 80 units/day) * Total daily dose ~ 120 units/day * HbA1c: 8.3% (12/30/19) ASSESSMENT: 03/28/20: * Ms Cisneros has received ~250 units of insulin daily for the past couple of days, while on steroids. * Basal insulin: 110 units * Prandial insulin: 135-150 units * Prednisone was discontinued this afternoon, so expect glycemic control to improve as insulin resistance lessens. * Novolog parameters have been loosened slightly now that steroids are no longer on board. Will continue to adjust as needed. 03/25 * 74 yo T2DM female well known to pharmacy from previous admissions/glycemic consults. Most recently in both July and December of this year. * Patient's insulin needs per July admission were ~ 200 units/day with Solumedrol 40mg IV BID ordered * Patient's insulin needs per December admission were averaging 90-130 units/day. No steroids ordered this admission * Pt received a one time dose of Solumedrol 125mg IV in ED and is ordered Solumedrol 40mg IV BID ongoing. * Will mirror dosing regimen from 07/2019 admission and titrate based on BSG trends. PLAN FOR INPATIENT GLYCEMIC CONTROL: * Basal insulin * 40-50 units SQ BID, based upon BSGs (see EMR for details) * Bolus insulin * NovoLog per scale ACHS or Q6hrs while NPO * Goal Range: Low 110 mg/dL - High 140 mg/dL * Correction Factor: 8 mg/dL/unit * Nutritional / Prandial insulin per carb ratio of 1 unit per 3 grams CHO consumed DISCHARGE PLANNING: * A1c: 8.3% * HbA1c indicates somewhat suboptimal glycemic control. Goal A1c for a 74yo with multiple comorbidities is probably closer to 7.5%. * Consider adjusting insulin dosing on discharge. * Recommend f/u with outpt provider after discharge.
[2020-03-28] MEDS: BUMETANIDE 4 MG in SYRINGE 0 ML IV SCH (16:51)
[2020-03-28] MEDS: rOPINIRole HCL 1 MG TABLET PO SCH (19:47)
[2020-03-28] MEDS: ASPIRIN 81 MG ECTAB PO SCH (19:47)
[2020-03-28] MEDS: MELATONIN 3 MG TAB PO PRN (21:35)
[2020-03-29] MEDS: ALBUT/IPRATROP 3MG/0.5MG NEB 3 ML VIAL NEB SCH ×6 (03:22→23:02)
[2020-03-29] MEDS: SIMETHICONE 80 MG CHEW PO PRN ×2 (03:49→08:16)
[2020-03-29] MEDS: LEVOTHYROXINE SODIUM 75 MCG TABLET PO SCH (05:42)
[2020-03-29] MEDS: LEVOTHYROXINE SODIUM 200 MCG TABLET PO SCH (05:42)
[2020-03-29] MEDS: PIPERACILLIN/TAZOBACTAM 4.5 GM in DEXTROSE 5% 100 ML IV SCH ×3 (05:45→21:52)
[2020-03-29] MEDS: INSULIN ASPART 100 UNITS/ML 3 ML PEN SC SCH ×4 (08:14→20:51)
[2020-03-29] MEDS: POTASSIUM CHLORIDE CRTAB 20 MEQ TABCR PO SCH ×2 (08:16→20:53)
[2020-03-29] MEDS: PANTOprazole 40 MG TAB PO SCH (08:16)
[2020-03-29] MEDS: ATORVASTATIN 10 MG TAB PO SCH (08:16)
[2020-03-29] MEDS: BUMETANIDE 4 MG in SYRINGE 0 ML IV SCH ×2 (08:16→17:05)
[2020-03-29] MEDS: CHOLECALCIFEROL 1,000 UNITS 25 MCG TAB PO SCH (08:16)
[2020-03-29] MEDS: LABETALOL HCL 300 MG TAB PO SCH ×2 (08:16→20:53)
[2020-03-29] MEDS: ESCITALOPRAM OXALATE 10 MG TAB PO SCH (08:17)
[2020-03-29] MEDS: DICLOFENAC SOD 1% GEL 100 GM TUBE EXT SCH ×4 (08:18→20:51)
[2020-03-29] MEDS: INSULIN GLARGINE SOLOSTAR 100 UNITS/ML 3 ML PEN SQ SCH ×2 (08:18→20:52)
[2020-03-29] MEDS: CYANOCOBALAMIN 500 MCG TABLET (VITAMIN B-12) PO SCH (08:18)
[2020-03-29] MEDS: NYSTATIN POWDER 15GM BTL EXT SCH ×3 (08:19→20:53)
[2020-03-29] MEDS: FLUTICASONE/VILANTEROL 200/25MCG 14 PUFFS/INHALER INH SCH (08:19)
[2020-03-29 08:29] LABS: Eosinophils # (auto) 0.07 K/uL (0-0.5); Eosinophils % (auto) 0.7 %; Hematocrit (blood only) 38.8 % (37-47); Immature Granulocytes # (auto) 0.04 K/uL (0.00-0.02); Immature Granulocytes % (auto) 0.4 %; Lymphocytes # (auto) 1.54 K/uL (1.2-3.4); Lymphocytes % (auto) 16.1 %; Mean Corpuscular Hemoglobin 27.1 pg (25-34); Mean Corpuscular Hgb Conc 30.9 g/dL (32-36); Mean Corpuscular Volume 87.6 fL (80-100); Mean Platelet Volume 11.1 fL (7.4-10.4); Monocytes # (auto) 0.99 K/uL (0.11-0.59); Monocytes % (auto) 10.3 %; Neutrophils # (auto) 6.95 K/uL (1.4-6.5); Neutrophils % (auto) 72.5 %; Platelet Count 362 K/uL (130-400); RDW Standard Deviation 57.8 fL (36.4-46.3); Red Blood Count 4.43 M/uL (4.2-5.4); White Blood Count 9.59 K/uL (4.8-10.8)
[2020-03-29 08:59] LABS: BUN Creatinine Ratio 33.2 (10-20); Calcium 9.2 mg/dl (8.5-10.1); Creatinine Clr Calc Pharmacy 25.7 ml/min; Est GFR (African American) 19.8; Est GFR (Non-African American) 17.1; Magnesium 1.8 mg/dl (1.8-2.4)
[2020-03-29 09:10] LABS: Thyroid Stimulating Hormone 1.04 uIu/ml (0.300-4.500)
--- NOTE | 2020-03-29 10:47 | Hospitalist Progress Note ---
Date of Service March 29, 2020 Assessment & Plan (1) Acute exacerbation of CHF (congestive heart failure): Patient is typically on 4 mg of Bumex in the morning and 2 mg at night at home Bumex increased to 4 mg twice daily 03/28/2020. Continue metolazone Strict I&Os Leslie Ortega PA-C following along for outpatient CHF clinic (2) Chronic kidney disease, stage III (moderate): Creatinine increased to 2.66 today with increased doses of Bumex Baseline creatinine appears to be 1.8-1.9 Check repeat BMP later today Potassium as listed below is at 3.0 (3) COPD (chronic obstructive pulmonary disease): Patient with morbid obesity with a BMI of 47.7 kg/m She reports using CPAP with compliance at home Continue inpatient CPAP Continue Brio Ellipta Discontinue prednisone as patient has no bronchospasm Continue titrate supplemental O2 for an SaO2 of 88 to 92% (4) History of deep venous thrombosis or pulmonary embolus: Patient anticoagulated on warfarin INR is therapeutic No acute complaints (5) Obstructive sleep apnea syndrome: Continue with CPAP as tolerated Encourage use at bedtime and as needed (6) Venous stasis ulcers of both lower extremities: With new open sores Wound care nurses consulted Continue with diuresis and follow (7) 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, with long- term current use of insulin: Humalog and Lantus at home Hemoglobin A1c is 7.8 Continue with Lantus and sliding scale NovoLog while inpatient Continue diabetic diet (8) Hypokalemia: Magnesium is 1.8 this morning * Will order 2 g of magnesium sulfate IV Potassium this morning 3.0. * Will order 30 mEq of potassium chloride via IV rider * Will order 40 mEq of potassium chloride p.o. Follow serial labs (9) Anemia of chronic disease: No active bleeding Hemoglobin is stable at 12 Continue ferrous sulfate Follow serial labs (10) Diabetic nephropathy: Patient reports no acute pain She is not on gabapentin (Neurontin) at home Continue supportive care (11) Diarrhea: No abdominal pain the patient does have abdominal bloating and reports alesha nicole diarrhea overnight We will check stool for C. difficile Await results and follow (12) Abdominal bloating: No nausea or vomiting No abdominal pain with palpation Abdomen does seem tympanic on exam and distended Hold all Colace and Senokot due to diarrhea We will order single dose of 80 mg of oral simethicone No indication for KUB at this time Follow clinically (13) DVT prophylaxis: Chronically anticoagulated with warfarin Follow INR Encourage out of bed to chair and ambulation as tolerated Admission and Anticipated Discharge Date Admission Date: March 25, 2020 Subjective Attending: Dr. Dank Rodríguez This is a 74-year-old female that was admitted 03/25/2020 with CHF exacerbation. She states that she feels worse today. She has some shortness of breath overnight. She states she did tolerate her CPAP last night. She has no fever or chills. She has no chest pain or tightness. She does feel abdominal fullness. She also states that she feels "gassy" and "bloated". She has no cough or sputum production. She does feel as though her legs are more edematous. She was seen by a wound care yesterday and both lower extremities are dressed and bandaged. She denies any lower extremity pain. She also reports watery diarrhea overnight. She has no other acute complaints. Review of Systems Review of Systems: All systems reviewed & are unremarkable except as noted in Subjective Physical Exam Physical Exam: GENERAL : No acute distress. Appears ill. EYES: No icterus, gaze conjugate NOSE: No evidence of epistaxis. Nasal cannula is in place. MOUTH: No lesions or candidiasis NECK: Supple LUNGS: Bibasilar fine crackles. No rhonchi or bronchospasm appreciated. Breath sounds are diminished globally. Poor inspiratory effort. HEART: Regular, rate controlled ABDOMEN: Abdomen feels bloated. Is nonpainful to palpation. Bowel sounds are appropriate. Tympanic to percussion EXTREMITIES: No LE edema, pedal pulses intact NEURO: A&OX3 Results & Data Results & Data ([facility]) Vital Signs (Past 12 Hours) Vital Signs Temp Pulse Pulse Resp BP Pulse Ox 03/29/20 07:14 36.3 C L 73 22 132/73 93 03/29/20 07:05 63 18 92 03/29/20 04:23 36.3 C L 75 20 147/78 H 91 03/29/20 03:24 71 18 92 03/29/20 03:23 71 18 92 03/28/20 23:06 71 18 95 03/28/20 23:05 71 18 95 03/28/20 23:00 36.5 C 68 18 158/79 H 94 Laboratory Results 03/29/20 07:58 03/29/20 07:58 Laboratory Tests 03/25/20 03/26/20 03/27/20 12:25 06:04 05:58 Potassium 3.8 3.1 L D 3.0 L Magnesium 03/28/20 03/29/20 05:42 07:58 Potassium 3.2 L 3.0 L Magnesium 1.8 Diagnostic Findings XR chest 1V portable CLINICAL HISTORY: hypoxia, CHF Exacerbation COMPARISON STUDY: 03/25/2020 FINDINGS: The heart remains enlarged. There is persistent elevation of interstitium suggesting underlying pulmonary vascular congestion/fluid overload. There is no lobar consolidation. There are no large pleural effusions.[ IMPRESSION: Cardiomegaly and persistent radiographic evidence of congestive failure/fluid overload Electronically signed by: Simon Walter M.D. 03/28/2020 8:03 AM PG Care Time/CCT Total # of Minutes Spent Total Time Spent with Patient: Total time spent is greater than 50% in coordination of care (as documented) at patient's floor/unit and/or counseling patient:30 Coding Level of Care Code 64217 Subseq Hosp Care Lvl 3 History Detailed Exam Detailed Medical Decision Making High Complexity Diagnoses Acute exacerbation of CHF (congestive heart failure) I50.9 Heart failure type: unspecified Chronic kidney disease, stage III (moderate) N18.3 COPD (chronic obstructive pulmonary disease) J44.9 History of deep venous thrombosis or pulmonary embolus Obstructive sleep apnea syndrome G47.33 Venous stasis ulcers of both lower extremities I83.019; I83.029; L97.919; L97.929 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, with long-term current use of insulin E11.29; E11.65; Z79.4 Hypokalemia E87.6 Anemia of chronic disease D63.8 Diabetic nephropathy E11.21 Diabetes mellitus type: type 2 Diarrhea R19.7 Abdominal bloating R14.0 DVT prophylaxis Z29.9 Time Spent (min) 30 (1) Acute exacerbation of CHF (congestive heart failure) Heart failure type: unspecified Qualified Code(s): I50.9 - Heart failure, unspecified (2) Diabetic nephropathy Diabetes mellitus type: type 2 Qualified Code(s): E11.21 - Type 2 diabetes mellitus with diabetic nephropathy
[2020-03-29] MEDS ORDERED: SIMETHICONE 40 MG/0.6 ML 30ML PO ONE (10:53)
[2020-03-29] MEDS ORDERED: POTASSIUM CHLORIDE CRTAB 20 MEQ TABCR PO STA (10:53)
[2020-03-29] MEDS: MAGNESIUM SULFATE / D5W 1 GM/100 ML BAG IV SCH ×2 (11:25→12:40)
[2020-03-29] MEDS: POTASSIUM CHLORIDE / WTR 10 MEQ/100 ML PLCT IV SCH ×3 (11:25→14:18)
[2020-03-29] MEDS: WARFARIN SOD 2.5 MG TAB PO SCH (17:12)
[2020-03-29] MEDS: ASPIRIN 81 MG ECTAB PO SCH (20:53)
[2020-03-29] MEDS: rOPINIRole HCL 1 MG TABLET PO SCH (20:54)
[2020-03-29] MEDS: MELATONIN 3 MG TAB PO PRN (21:57)
[2020-03-30] MEDS: ALBUT/IPRATROP 3MG/0.5MG NEB 3 ML VIAL NEB SCH ×6 (03:06→22:21)
[2020-03-30] MEDS: LEVOTHYROXINE SODIUM 75 MCG TABLET PO SCH (06:35)
[2020-03-30] MEDS: LEVOTHYROXINE SODIUM 200 MCG TABLET PO SCH (06:35)
[2020-03-30] MEDS: PIPERACILLIN/TAZOBACTAM 4.5 GM in DEXTROSE 5% 100 ML IV SCH ×3 (06:35→21:54)
[2020-03-30 07:57] LABS: INR 2.1 (0.9-1.1); Prothrombin Time 21.3 Seconds (9.0-12.0)
[2020-03-30] MEDS: INSULIN ASPART 100 UNITS/ML 3 ML PEN SC SCH ×4 (08:06→20:00)
[2020-03-30] MEDS: FLUTICASONE/VILANTEROL 200/25MCG 14 PUFFS/INHALER INH SCH (08:07)
[2020-03-30] MEDS: PANTOprazole 40 MG TAB PO SCH (08:08)
[2020-03-30] MEDS: ATORVASTATIN 10 MG TAB PO SCH (08:08)
[2020-03-30] MEDS: BUMETANIDE 4 MG in SYRINGE 0 ML IV SCH ×2 (08:08→17:37)
[2020-03-30] MEDS: CYANOCOBALAMIN 500 MCG TABLET (VITAMIN B-12) PO SCH (08:08)
[2020-03-30] MEDS: ESCITALOPRAM OXALATE 10 MG TAB PO SCH (08:08)
[2020-03-30] MEDS: POTASSIUM CHLORIDE CRTAB 20 MEQ TABCR PO SCH ×2 (08:08→20:44)
[2020-03-30] MEDS: LABETALOL HCL 300 MG TAB PO SCH ×2 (08:08→20:44)
[2020-03-30] MEDS: CHOLECALCIFEROL 1,000 UNITS 25 MCG TAB PO SCH (08:08)
[2020-03-30] MEDS: INSULIN GLARGINE SOLOSTAR 100 UNITS/ML 3 ML PEN SQ SCH ×2 (08:09→20:00)
[2020-03-30] MEDS: NYSTATIN POWDER 15GM BTL EXT SCH ×3 (08:09→19:59)
[2020-03-30] MEDS: DICLOFENAC SOD 1% GEL 100 GM TUBE EXT SCH ×4 (08:09→20:00)
[2020-03-30 08:22] LABS: BUN Creatinine Ratio 34.2 (10-20); Calcium 9.4 mg/dl (8.5-10.1); Creatinine Clr Calc Pharmacy 27.3 ml/min; Est GFR (African American) 21.1; Est GFR (Non-African American) 18.2; Potassium 3.1 mmol/L (3.5-5.1)
--- NOTE | 2020-03-30 14:31 | Pharmacy Report ---
Pharmacy Glycemic Short Note 2 - Date of Service March 30, 2020 - Glycemic Short BSG Results (Last 24 hours): 03/29/20 03/29/20 03/30/20 16:03 20:19 07:03 Glucose 89 POC Glucose 71 101 H 03/30/20 03/30/20 07:26 11:26 Glucose POC Glucose 96 125 H OUTPATIENT ANTIDIABETIC REGIMEN: * Basaglar 40 units SQ PM * NovoLog 20 units SQ TIDM (up to 80 units/day) * Total daily dose ~ 120 units/day * HbA1c: 8.3% (12/30/19) ASSESSMENT: 03/30: * Patient received total of 142 units of insulin yesterday: 80 units basal + 62 units bolus. * Fasting BSG today was 96 mg/dl. Lantus dosing based on BSG scale was reduced this AM. * Further Novolog parameters were also loosened with breakfast. * Post prandial BSGs yesterday ranged between 71 to 125 mg/dl. Pre-lunch BSG today was 125 mg/dl, all within or below goal range. This warranted loosening the Novolog CF and CR. 03/28/20: * Ms Cisneros has received ~250 units of insulin daily for the past couple of days, while on steroids. * Basal insulin: 110 units * Prandial insulin: 135-150 units * Prednisone was discontinued this afternoon, so expect glycemic control to improve as insulin resistance lessens. * Novolog parameters have been loosened slightly now that steroids are no longer on board. Will continue to adjust as needed. 03/25 * 74 yo T2DM female well known to pharmacy from previous admissions/glycemic consults. Most recently in both July and December of this year. * Patient's insulin needs per July admission were ~ 200 units/day with Solumedrol 40mg IV BID ordered * Patient's insulin needs per December admission were averaging 90-130 units/day. No steroids ordered this admission * Pt received a one time dose of Solumedrol 125mg IV in ED and is ordered Solumedrol 40mg IV BID ongoing. * Will mirror dosing regimen from 07/2019 admission and titrate based on BSG trends. PLAN FOR INPATIENT GLYCEMIC CONTROL: * Basal insulin: decreased * 30-40 units SQ BID, based upon BSGs (see EMR for details) * Bolus insulin: loosened * NovoLog per scale ACHS or Q6hrs while NPO * Goal Range: Low 110 mg/dL - High 140 mg/dL * Correction Factor: 10 mg/dL/unit * Nutritional / Prandial insulin per carb ratio of 1 unit per 5 grams CHO consumed DISCHARGE PLANNING: * A1c: 8.3% * HbA1c indicates somewhat suboptimal glycemic control. Goal A1c for a 74yo with multiple comorbidities is probably closer to 7.5%. * Consider adjusting insulin dosing on discharge. Recommend increasing Basaglar to 30 units BID to start. * If patient has been using a sliding scale for Novolog with meals, recommend continue with this. * Recommend close f/u with outpt provider after discharge.
[2020-03-30] MEDS: WARFARIN SOD 2.5 MG TAB PO SCH (17:47)
[2020-03-30] MEDS ORDERED: POTASSIUM CHLORIDE CRTAB 20 MEQ TABCR PO STA (18:47)
--- NOTE | 2020-03-30 18:53 | Hospitalist Progress Note ---
Date of Service March 30, 2020 Assessment & Plan (1) Acute exacerbation of CHF (congestive heart failure): Patient is typically on 4 mg of Bumex in the morning and 2 mg at night at home Bumex increased to 4 mg twice daily 03/28/2020. Continue metolazone Patient's creatinine is starting to bump. Change Bumex back to 3 mg twice daily Strict I&Os Leslie Ortega PA-C following along for outpatient CHF clinic (2) Chronic kidney disease, stage III (moderate): Creatinine increased to 2.66 yesterday. It is 2.53 today Baseline creatinine appears to be 1.8-1.9 We will decrease Bumex back to 3 mg twice daily Potassium as listed below is at 3.0 (3) COPD (chronic obstructive pulmonary disease): Patient with morbid obesity with a BMI of 47.7 kg/m She reports using CPAP with compliance at home Continue inpatient CPAP which she seems to be tolerating well Continue Brio Ellipta Discontinue prednisone as patient has no bronchospasm Continue to titrate supplemental O2 for an SaO2 of 88 to 92% (4) History of deep venous thrombosis or pulmonary embolus: Patient anticoagulated on warfarin INR is therapeutic at 2.1 No acute complaints (5) Obstructive sleep apnea syndrome: Continue with CPAP as tolerated Encourage use at bedtime and as needed (6) Venous stasis ulcers of both lower extremities: With new open sores Wound care nurses consulted and following Continue with diuresis and follow (7) 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, with long- term current use of insulin: Humalog and Lantus at home Hemoglobin A1c is 7.8 Continue with Lantus and sliding scale NovoLog while inpatient Continue diabetic diet (8) Hypokalemia: 2 g of magnesium sulfate IV given yesterday Check repeat magnesium in the morning Potassium this morning 3.1. * Will order 40 mEq of potassium chloride p.o. for total of 60 mEq tonight Appears to be asymptomatic Follow serial labs (9) Anemia of chronic disease: No active bleeding Hemoglobin is stable Continue ferrous sulfate Follow serial labs (10) Diabetic nephropathy: Patient reports no acute pain She is not on gabapentin (Neurontin) at home Continue supportive care (11) Diarrhea: No abdominal pain the patient does have abdominal bloating and reports watery diarrhea overnight Stool was C. difficile negative Patient reports his stool is firming up today it is still soft Await results and follow (12) Abdominal bloating: No nausea or vomiting No abdominal pain with palpation Abdomen does seem tympanic on exam and distended Hold all Colace and Senokot due to diarrhea Continue simethicone urine Check a KUB in the morning when checking chest x-ray Follow clinically (13) DVT prophylaxis: Chronically anticoagulated with warfarin Follow INR Encourage out of bed to chair and ambulation as tolerated Admission and Anticipated Discharge Date Admission Date: March 25, 2020 Subjective Attending: Dr. Dank Rodríguez The patient was seen at bedside today. She states that she feels a little bit better today. She still has abdominal bloating. She did respond well to the additional dose of simethicone yesterday and had some flatus in addition to a large bowel movement. She has no nausea or vomiting. She denies any fever or chills. She states that she was out of bed to chair yesterday. She has minimal ambulation. She has no new acute complaints. Review of Systems Review of Systems: All systems reviewed & are unremarkable except as noted in Subjective Physical Exam Physical Exam: GENERAL : No acute distress EYES: No icterus, gaze conjugate NOSE: No evidence of epistaxis MOUTH: No lesions or candidiasis NECK: Supple LUNGS: Faint bibasilar crackles. No rhonchi or bronchospasm. Better inspirational effort today HEART: Regular, rate controlled ABDOMEN: Soft, NT, ND, BS Present EXTREMITIES: +1 bilateral LE edema, pedal pulses intact and equal bilaterally, bilateral chronic venous stasis NEURO: A&OX3 Results & Data Results & Data ([facility]) Vital Signs (Past 12 Hours) Vital Signs Temp Pulse Resp BP Pulse Ox 03/30/20 15:35 36.5 C 67 20 124/67 96 03/30/20 15:17 78 20 97 03/30/20 11:21 63 16 93 03/30/20 10:52 36.4 C L 65 20 116/68 96 03/30/20 07:05 66 16 91 03/30/20 07:00 36.8 C 68 20 130/73 95 Laboratory Results 03/29/20 07:58 03/30/20 07:03 Diagnostic Findings No new diagnostic imaging PG Care Time/CCT Total # of Minutes Spent Total Time Spent with Patient: Total time spent is greater than 50% in coordination of care (as documented) at patient's floor/unit and/or counseling patient: 30 minutes Coding Level of Care Code 18457 Subseq Hosp Care Lvl 2 Diagnoses Acute exacerbation of CHF (congestive heart failure) I50.9 Heart failure type: unspecified Chronic kidney disease, stage III (moderate) N18.3 COPD (chronic obstructive pulmonary disease) J44.9 History of deep venous thrombosis or pulmonary embolus Obstructive sleep apnea syndrome G47.33 Venous stasis ulcers of both lower extremities I83.019; I83.029; L97.919; L97.929 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, with long-term current use of insulin E11.29; E11.65; Z79.4 Hypokalemia E87.6 Anemia of chronic disease D63.8 Diabetic nephropathy E11.21 Diabetes mellitus type: type 2 Diarrhea R19.7 Abdominal bloating R14.0 DVT prophylaxis Z29.9 Time Spent (min) 30 (1) Acute exacerbation of CHF (congestive heart failure) Heart failure type: unspecified Qualified Code(s): I50.9 - Heart failure, unspecified (2) Diabetic nephropathy Diabetes mellitus type: type 2 Qualified Code(s): E11.21 - Type 2 diabetes mellitus with diabetic nephropathy
[2020-03-30] MEDS: rOPINIRole HCL 1 MG TABLET PO SCH (20:44)
[2020-03-30] MEDS: ASPIRIN 81 MG ECTAB PO SCH (20:44)
[2020-03-30] MEDS: MELATONIN 3 MG TAB PO PRN (21:54)
[2020-03-31] MEDS: ALBUT/IPRATROP 3MG/0.5MG NEB 3 ML VIAL NEB SCH ×6 (02:05→22:26)
[2020-03-31] MEDS: LEVOTHYROXINE SODIUM 75 MCG TABLET PO SCH (05:38)
[2020-03-31] MEDS: LEVOTHYROXINE SODIUM 200 MCG TABLET PO SCH (05:38)
[2020-03-31] MEDS: PIPERACILLIN/TAZOBACTAM 4.5 GM in DEXTROSE 5% 100 ML IV SCH ×3 (05:38→21:05)
[2020-03-31 07:29] LABS: INR 2.1 (0.9-1.1); Prothrombin Time 20.9 Seconds (9.0-12.0)
--- NOTE | 2020-03-31 07:33 | XRay Report ---
KUB HISTORY: Acute generalized abdominal pain with bloating Abdominal bloating COMPARISON: KUB 01/08/2020, CT abdomen pelvis 01/03/2020., KUB 01/02/2020 FINDINGS: Evaluation for pneumoperitoneum is limited secondary to supine positioning. Moderately dila jackie gas-filled loops of large and small bowel. No urolith or acute fracture identified. Degenerative changes of the spine, pelvis and hips. Probable pelvic basin phlebolith. IMPRESSION: 1. Moderate gaseous distention of both large and small bowel appears similar to several prior studies and is suggestive of ileus. Distal obstruction considered less likely.. 2. Evaluation for pneumoperitoneum is limited secondary to supine positioning. Recommend correlation with upright view of the abdomen. ACT 112: Negative or not required by law. The above report was generated using voice recognition software. It may contain grammatical, syntax o r spelling errors. Electronically signed by: Aguilar Chávez M.D. 03/31/2020 7:31 AM
--- NOTE | 2020-03-31 07:34 | XRay Report ---
XR chest 1V portable CLINICAL HISTORY: Hypoxia COMPARISON STUDY: 03/28/2020 FINDINGS: The heart remains enlarged. There is slight improvement in the pulmonary vascular congestio n. There are basilar opacities, likely atelectatic although an infectious/inflammatory processes coul d appear similar there are no large pleural effusions[ IMPRESSION: 1. Cardiomegaly and improving pulmonary vascular congestion 2. Bibasilar opacities likely atelectatic. ACT 112: Negative or not required by law. Electronically signed by: Simon Walter M.D. 03/31/2020 7:33 AM
[2020-03-31 07:53] LABS: BUN Creatinine Ratio 31.8 (10-20); Calcium 9.4 mg/dl (8.5-10.1); Creatinine Clr Calc Pharmacy 27.7 ml/min; Est GFR (African American) 20.6; Est GFR (Non-African American) 17.8; Potassium 3.5 mmol/L (3.5-5.1)
[2020-03-31] MEDS: INSULIN ASPART 100 UNITS/ML 3 ML PEN SC SCH ×4 (07:58→20:46)
[2020-03-31] MEDS: INSULIN GLARGINE SOLOSTAR 100 UNITS/ML 3 ML PEN SQ SCH ×2 (08:00→20:45)
[2020-03-31] MEDS: FLUTICASONE/VILANTEROL 200/25MCG 14 PUFFS/INHALER INH SCH (08:01)
[2020-03-31] MEDS: POTASSIUM CHLORIDE CRTAB 20 MEQ TABCR PO SCH ×2 (08:01→20:45)
[2020-03-31] MEDS: BUMETANIDE 3 MG in SYRINGE 0 ML IV SCH ×2 (08:01→17:03)
[2020-03-31] MEDS: ATORVASTATIN 10 MG TAB PO SCH (08:02)
[2020-03-31] MEDS: LABETALOL HCL 300 MG TAB PO SCH ×2 (08:02→20:43)
[2020-03-31] MEDS: ESCITALOPRAM OXALATE 10 MG TAB PO SCH (08:02)
[2020-03-31] MEDS: CYANOCOBALAMIN 500 MCG TABLET (VITAMIN B-12) PO SCH (08:02)
[2020-03-31] MEDS: NYSTATIN POWDER 15GM BTL EXT SCH ×3 (08:03→20:48)
[2020-03-31] MEDS: CHOLECALCIFEROL 1,000 UNITS 25 MCG TAB PO SCH (08:03)
[2020-03-31] MEDS: PANTOprazole 40 MG TAB PO SCH (08:03)
[2020-03-31] MEDS: DICLOFENAC SOD 1% GEL 100 GM TUBE EXT SCH ×4 (08:04→20:44)
[2020-03-31] MEDS ORDERED: POTASSIUM CHLORIDE CRTAB 20 MEQ TABCR PO STA (14:40)
--- NOTE | 2020-03-31 14:41 | Hospitalist Progress Note ---
Date of Service March 31, 2020 Assessment & Plan (1) Acute exacerbation of CHF (congestive heart failure): Chest x-ray today. Congestive pattern seems to be improving Patient is typically on 4 mg of Bumex in the morning and 2 mg at night at home Bumex increased to 4 mg twice daily 03/28/2020. We then cut Bumex back to 3 mg twice daily yesterday secondary to increased creatinine Continue metolazone Continue strict I&Os I had a long discussion with the patient about the need for ambulation I also contacted physical therapy to again engage for daily therapies Leslie Ortega PA-C following along for outpatient CHF clinic (2) Chronic kidney disease, stage III (moderate): Creatinine is stable around 2.5 Baseline creatinine appears to be 1.8-1.9 Decreased Bumex back to 3 mg twice daily Potassium 3.5 today (3) COPD (chronic obstructive pulmonary disease): Patient with morbid obesity with a BMI of 47.7 kg/m She reports using CPAP with compliance at home Continue inpatient CPAP which she seems to be tolerating well Continue Brio Ellipta Prednisone discontinued as patient has no bronchospasm Continue to titrate supplemental O2 for an SaO2 of 88 to 92% (4) History of deep venous thrombosis or pulmonary embolus: Patient anticoagulated on warfarin INR is therapeutic at 2.1 No acute complaints (5) Obstructive sleep apnea syndrome: Continue with CPAP as tolerated Encourage use at bedtime and as needed (6) Venous stasis ulcers of both lower extremities: With new open sores Wound care nurses consulted and following Continue with diuresis and follow Continue dressing and dressing changes per wound care (7) 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, with long- term current use of insulin: Humalog and Lantus at home Hemoglobin A1c is 7.8 Continue with Lantus and sliding scale NovoLog while inpatient Continue diabetic diet (8) Hypokalemia: Patient seems to be making some headway with her potassium K+ was 3.5 today She is currently ordered potassium chloride 20 mEq p.o. BID I will give her an additional 40 mEq by mouth today and follow serial labs (9) Anemia of chronic disease: No active bleeding Hemoglobin is stable Continue ferrous sulfate Follow serial labs (10) Diabetic nephropathy: Patient reports no acute pain She is not on gabapentin (Neurontin) at home Continue supportive care (11) Diarrhea: No abdominal pain. However the patient does have abdominal bloating and reports diarrhea overnight Stool was C. difficile negative Patient reports stool is firming up today. This is not endorsed by RN Await results and follow (12) Wound of lower extremity: Left lower extremity cellulitis with drainage Wound care nurse was consulted and managing Culture grew out Serratia marcescens which is pansensitive Patient currently is on Zosyn (day#7) (13) Abdominal bloating: KUB with gas distended bowel suggestive of early ileus No nausea or vomiting No abdominal pain with palpation Abdomen does seem tympanic on exam and distended Hold all Colace and Senokot due to diarrhea Continue simethicone Ambulate in the room and in the halls as tolerated Follow clinically (14) DVT prophylaxis: Chronically anticoagulated with warfarin Follow INR Encourage out of bed to chair and ambulation as tolerated Please review Dr. Monterroso's addendum for further recommendations Admission and Anticipated Discharge Date Admission Date: March 25, 2020 Subjective Attending: Dr. Monterroso The patient was seen at bedside today. She was up in bedside chair. She looks much more comfortable today. She has no respiratory distress. She has no cough during my examination. She denies any fever cough or chills. She does have episodic shortness of breath. She did tolerate CPAP last night. She has no new acute findings. Review of Systems Review of Systems: All systems reviewed & are unremarkable except as noted in Subjective Physical Exam Physical Exam: GENERAL : No acute distress EYES: No icterus, gaze conjugate NOSE: No evidence of epistaxis MOUTH: No lesions or candidiasis NECK: Supple LUNGS: Continue with bilateral rails. No bronchospasm or rhonchi appreciated. HEART: Regular, rate controlled ABDOMEN: Soft, NT, ND, BS Present EXTREMITIES: Bilateral LE edema seems improved as compared to yesterday. Pedal pulses intact and equal bilaterally NEURO: A&OX3 Results & Data Results & Data ([facility]) Vital Signs (Past 12 Hours) Vital Signs Temp Pulse Pulse Pulse Resp BP Pulse Ox 03/31/20 12:00 36.4 C L 67 18 104/68 93 03/31/20 10:55 66 18 92 03/31/20 08:00 66 03/31/20 07:46 36.4 C L 75 18 147/71 H 92 03/31/20 07:26 72 16 93 03/31/20 04:11 36.4 C L 59 L 16 128/72 96 Laboratory Results 03/29/20 07:58 03/31/20 06:33 Diagnostic Findings KUB HISTORY: Acute generalized abdominal pain with bloating Abdominal bloating COMPARISON: KUB 01/08/2020, CT abdomen pelvis 01/03/2020., KUB 01/02/2020 FINDINGS: Evaluation for pneumoperitoneum is limited secondary to supine positioning. Moderately dilated gas-filled loops of large and small bowel. No urolith or acute fracture identified. Degenerative changes of the spine, pelvis and hips. Probable pelvic basin phlebolith. IMPRESSION: 1. Moderate gaseous distention of both large and small bowel appears similar to several prior studies and is suggestive of ileus. Distal obstruction considered less likely.. 2. Evaluation for pneumoperitoneum is limited secondary to supine positioning. Recommend correlation with upright view of the abdomen. ACT 112: Negative or not required by law. The above report was generated using voice recognition software. It may contain grammatical, syntax or spelling errors. Electronically signed by: Aguilar Chávez M.D. 03/31/2020 7:31 AM XR chest 1V portable CLINICAL HISTORY: Hypoxia COMPARISON STUDY: 03/28/2020 FINDINGS: The heart remains enlarged. There is slight improvement in the pulmonary vascular congestion. There are basilar opacities, likely atelectatic although an infectious/inflammatory processes could appear similar there are no large pleural effusions[ IMPRESSION: 1. Cardiomegaly and improving pulmonary vascular congestion 2. Bibasilar opacities likely atelectatic. ACT 112: Negative or not required by law. Electronically signed by: Simon Walter M.D. 03/31/2020 7:33 AM PG Care Time/CCT Total # of Minutes Spent Total Time Spent with Patient: Total time spent is greater than 50% in coordination of care (as documented) at patient's floor/unit and/or counseling patient: 45 minutes Coding Level of Care Code 82378 Subseq Hosp Care Lvl 3 Medical Decision Making High Complexity Diagnoses Acute exacerbation of CHF (congestive heart failure) I50.9 Heart failure type: unspecified Chronic kidney disease, stage III (moderate) N18.3 COPD (chronic obstructive pulmonary disease) J44.9 History of deep venous thrombosis or pulmonary embolus Obstructive sleep apnea syndrome G47.33 Venous stasis ulcers of both lower extremities I83.019; I83.029; L97.919; L97.929 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, with long-term current use of insulin E11.29; E11.65; Z79.4 Hypokalemia E87.6 Anemia of chronic disease D63.8 Diabetic nephropathy E11.21 Diabetes mellitus type: type 2 Diarrhea R19.7 Wound of lower extremity S81.809A Abdominal bloating R14.0 DVT prophylaxis Z29.9 Time Spent (min) 45 (1) Acute exacerbation of CHF (congestive heart failure) Heart failure type: unspecified Qualified Code(s): I50.9 - Heart failure, unspecified (2) Diabetic nephropathy Diabetes mellitus type: type 2 Qualified Code(s): E11.21 - Type 2 diabetes m ellitus with diabetic nephropathy
[2020-03-31] MEDS: WARFARIN SOD 2.5 MG TAB PO SCH (17:04)
[2020-03-31] MEDS: rOPINIRole HCL 1 MG TABLET PO SCH (20:44)
[2020-03-31] MEDS: ASPIRIN 81 MG ECTAB PO SCH (20:45)
[2020-03-31] MEDS: MELATONIN 3 MG TAB PO PRN (21:05)
[2020-04-01] MEDS: ALBUT/IPRATROP 3MG/0.5MG NEB 3 ML VIAL NEB SCH ×6 (03:19→23:22)
[2020-04-01] MEDS: PIPERACILLIN/TAZOBACTAM 4.5 GM in DEXTROSE 5% 100 ML IV SCH ×2 (05:38→14:17)
[2020-04-01] MEDS: LEVOTHYROXINE SODIUM 75 MCG TABLET PO SCH (05:39)
[2020-04-01] MEDS: LEVOTHYROXINE SODIUM 200 MCG TABLET PO SCH (05:39)
[2020-04-01 06:20] LABS: INR 2.2 (0.9-1.1); Prothrombin Time 21.8 Seconds (9.0-12.0)
[2020-04-01 06:26] LABS: BUN Creatinine Ratio 32.3 (10-20); Creatinine Clr Calc Pharmacy 34.7 ml/min; Est GFR (Non-African American) 23.3; Potassium 3.2 mmol/L (3.5-5.1)
[2020-04-01] MEDS: CYANOCOBALAMIN 500 MCG TABLET (VITAMIN B-12) PO SCH (07:50)
[2020-04-01] MEDS: PANTOprazole 40 MG TAB PO SCH (07:51)
[2020-04-01] MEDS: ESCITALOPRAM OXALATE 10 MG TAB PO SCH (07:51)
[2020-04-01] MEDS: CHOLECALCIFEROL 1,000 UNITS 25 MCG TAB PO SCH (07:52)
[2020-04-01] MEDS: ATORVASTATIN 10 MG TAB PO SCH (07:52)
[2020-04-01] MEDS: LABETALOL HCL 300 MG TAB PO SCH ×2 (07:53→21:04)
[2020-04-01] MEDS: DICLOFENAC SOD 1% GEL 100 GM TUBE EXT SCH ×4 (07:54→21:05)
[2020-04-01] MEDS: NYSTATIN POWDER 15GM BTL EXT SCH ×3 (07:54→22:47)
[2020-04-01] MEDS: POTASSIUM CHLORIDE CRTAB 20 MEQ TABCR PO SCH ×2 (07:56→21:02)
[2020-04-01] MEDS: FLUTICASONE/VILANTEROL 200/25MCG 14 PUFFS/INHALER INH SCH (07:56)
[2020-04-01] MEDS: INSULIN ASPART 100 UNITS/ML 3 ML PEN SC SCH ×4 (07:57→21:07)
[2020-04-01] MEDS: INSULIN GLARGINE SOLOSTAR 100 UNITS/ML 3 ML PEN SQ SCH ×2 (08:04→21:07)
[2020-04-01] MEDS: BUMETANIDE 3 MG in SYRINGE 0 ML IV SCH ×2 (12:36→17:18)
--- NOTE | 2020-04-01 15:15 | Pharmacy Report ---
Pharmacy Glycemic Short Note 2 - Date of Service April 01, 2020 - Glycemic Short BSG Results (Last 24 hours): 03/31/20 03/31/20 04/01/20 16:18 20:20 05:37 Glucose 86 POC Glucose 206 H 225 H 04/01/20 04/01/20 07:33 11:29 Glucose POC Glucose 106 H 144 H OUTPATIENT ANTIDIABETIC REGIMEN: * Basaglar 40 units SQ PM * NovoLog 20 units SQ TIDM (up to 80 units/day) * Total daily dose ~ 120 units/day * HbA1c: 8.3% (12/30/19) ASSESSMENT: 04/01: * Patient received total 119 units of insulin yesterday: 70 units basal + 49 units bolus. * Fasting BSG was 106 this AM. Will reduce Lantus for max of 60 units per day to prevent hypoglycemia in the AM. * Post-prandial BSGs were elevated yesterday, since patient received 40 units of Lantus last night, continued current Novolog parameters. Pre-lunch BSG was at goal today. Will re-assess and most likely will tighten Novolog parameters tomorrow AM. 03/30: * Patient received total of 142 units of insulin yesterday: 80 units basal + 62 units bolus. * Fasting BSG today was 96 mg/dl. Lantus dosing based on BSG scale was reduced this AM. * Further Novolog parameters were also loosened with breakfast. * Post prandial BSGs yesterday ranged between 71 to 125 mg/dl. Pre-lunch BSG today was 125 mg/dl, all within or below goal range. This warranted loosening the Novolog CF and CR. 03/28/20: * Ms Cisneros has received ~250 units of insulin daily for the past couple of days, while on steroids. * Basal insulin: 110 units * Prandial insulin: 135-150 units * Prednisone was discontinued this afternoon, so expect glycemic control to improve as insulin resistance lessens. * Novolog parameters have been loosened slightly now that steroids are no longer on board. Will continue to adjust as needed. 03/25 * 74 yo T2DM female well known to pharmacy from previous admissions/glycemic consults. Most recently in both July and December of this year. * Patient's insulin needs per July admission were ~ 200 units/day with Solumedrol 40mg IV BID ordered * Patient's insulin needs per December admission were averaging 90-130 units/day. No steroids ordered this admission * Pt received a one time dose of Solumedrol 125mg IV in ED and is ordered Solumedrol 40mg IV BID ongoing. * Will mirror dosing regimen from 07/2019 admission and titrate based on BSG trends. PLAN FOR INPATIENT GLYCEMIC CONTROL: * Basal insulin: decreased * Lantus 30 units SQ BID * Bolus insulin: continued * NovoLog per scale ACHS or Q6hrs while NPO * Goal Range: Low 110 mg/dL - High 140 mg/dL * Correction Factor: 10 mg/dL/unit * Nutritional / Prandial insulin per carb ratio of 1 unit per 5 grams CHO consumed DISCHARGE PLANNING: * A1c: 8.3% * HbA1c indicates somewhat suboptimal glycemic control. Goal A1c for a 74yo with multiple comorbidities is probably closer to 7.5%. * Consider adjusting insulin dosing on discharge. Recommend increasing Basaglar to 30 units BID to start with. * If patient has been using a sliding scale for Novolog with meals, recommend continue with this. * Recommend close f/u with outpt provider after discharge.
[2020-04-01] MEDS: ASPIRIN 81 MG ECTAB PO SCH (21:03)
[2020-04-01] MEDS: rOPINIRole HCL 1 MG TABLET PO SCH (21:06)
[2020-04-01] MEDS: MELATONIN 3 MG TAB PO PRN (21:22)
--- NOTE | 2020-04-01 22:51 | Hospitalist Progress Note ---
Date of Service April 01, 2020 Assessment & Plan (1) Acute exacerbation of CHF (congestive heart failure): Chest x-ray today. Congestive pattern seems to be improving Patient is typically on 4 mg of Bumex in the morning and 2 mg at night at home Bumex increased to 4 mg twice daily 03/28/2020. We then cut Bumex back to 3 mg twice daily yesterday secondary to increased creatinine Continue strict I&Os creatinine improving. Plan is to discharge in AM. (2) Chronic kidney disease, stage III (moderate): Creatinine is IMPROVING. Baseline creatinine appears to be 1.8-1.9 Decreased Bumex back to 3 mg twice daily (3) COPD (chronic obstructive pulmonary disease): Patient with morbid obesity with a BMI of 47.7 kg/m She reports using CPAP with compliance at home Continue inpatient CPAP which she seems to be tolerating well Continue Brio Ellipta Prednisone discontinued as patient has no bronchospasm Continue to titrate supplemental O2 for an SaO2 of 88 to 92% (4) History of deep venous thrombosis or pulmonary embolus: Patient anticoagulated on warfarin INR is therapeutic No acute complaints (5) Obstructive sleep apnea syndrome: Continue with CPAP as tolerated Encourage use at bedtime and as needed (6) Venous stasis ulcers of both lower extremities: With new open sores Wound care nurses consulted and following Continue with diuresis and follow Continue dressing and dressing changes per wound care (7) 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, with long- term current use of insulin: Humalog and Lantus at home Hemoglobin A1c is 7.8 Continue with Lantus and sliding scale NovoLog while inpatient Continue diabetic diet (8) Hypokalemia: Patient seems to be making some headway with her potassium Repleted. (9) Anemia of chronic disease: No active bleeding Hemoglobin is stable Continue ferrous sulfate Follow serial labs (10) Diabetic nephropathy: Patient reports no acute pain She is not on gabapentin (Neurontin) at home Continue supportive care (11) Diarrhea: No abdominal pain. However the patient does have abdominal bloating and reports diarrhea overnight Stool was C. difficile negative Patient reports stool is firming up today. This is not endorsed by RN (12) Wound of lower extremity: Left lower extremity cellulitis with drainage Wound care nurse was consulted and managing Culture grew out Serratia marcescens which is pansensitive Patient currently is on Zosyn (day#7) (13) Abdominal bloating: KUB with gas distended bowel suggestive of early ileus No nausea or vomiting No abdominal pain with palpation Abdomen does seem tympanic on exam and distended Hold all Colace and Senokot due to diarrhea Continue simethicone Ambulate in the room and in the halls as tolerated Follow clinically (14) DVT prophylaxis: Chronically anticoagulated with warfarin Follow INR Encourage out of bed to chair and ambulation as tolerated Please review Dr. Monterroso's addendum for further recommendations Admission and Anticipated Discharge Date Admission Date: March 25, 2020 Subjective Patient reports breathing better. Review of Systems Review of Systems: All systems reviewed & are unremarkable except as noted in HPI & below Physical Exam Physical Exam: GENERAL : No acute distress EYES: No icterus, gaze conjugate NOSE: No evidence of epistaxis MOUTH: No lesions or candidiasis NECK: Supple LUNGS: bibasilar rales. No bronchospasm or rhonchi appreciated. HEART: Regular, rate controlled ABDOMEN: Soft, NT, ND, BS Present EXTREMITIES: Bilateral LE edema seems improved as compared to yesterday. Pedal pulses intact and equal bilaterally NEURO: A&OX3 Results & Data Results & Data ([facility]) Vital Signs (Past 12 Hours) Vital Signs Temp Pulse Resp BP Pulse Ox 04/01/20 20:13 78 22 94 04/01/20 19:24 36.4 C L 68 18 149/82 H 97 04/01/20 15:47 36.3 C L 62 18 144/75 H 95 04/01/20 15:24 92 H 16 95 04/01/20 11:41 36.8 C 63 20 128/70 94 04/01/20 11:24 64 18 91 PG Care Time/CCT Total # of Minutes Spent Total Time Spent with Patient: Total time spent is greater than 50% in coordination of care (as documented) at patient's floor/unit and/or counseling patient: Coding Level of Care Code 07000 Subseq Hosp Care Lvl 2 Diagnoses Acute exacerbation of CHF (congestive heart failure) I50.9 Heart failure type: unspecified Chronic kidney disease, stage III (moderate) N18.3 COPD (chronic obstructive pulmonary disease) J44.9 History of deep venous thrombosis or pulmonary embolus Obstructive sleep apnea syndrome G47.33 Venous stasis ulcers of both lower extremities I83.019; I83.029; L97.919; L97.929 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, with long-term current use of insulin E11.29; E11.65; Z79.4 Hypokalemia E87.6 Anemia of chronic disease D63.8 Diabetic nephropathy E11.21 Diabetes mellitus type: type 2 Diarrhea R19.7 Wound of lower extremity S81.809A Abdominal bloating R14.0 DVT prophylaxis Z29.9 Time Spent (min) 25 (1) Acute exacerbation of CHF (congestive heart failure) Heart failure type: unspecified Qualified Code(s): I50.9 - Heart failure, unspecified (2) Diabetic nephropathy Diabetes mellitus type: type 2 Qualified Code(s): E11.21 - Type 2 diabetes mellitus with diabetic nephropathy
[2020-04-02] MEDS: ALBUT/IPRATROP 3MG/0.5MG NEB 3 ML VIAL NEB SCH ×3 (03:14→10:49)
[2020-04-02] MEDS: LEVOTHYROXINE SODIUM 200 MCG TABLET PO SCH (06:22)
[2020-04-02] MEDS: LEVOTHYROXINE SODIUM 75 MCG TABLET PO SCH (06:22)
[2020-04-02] MEDS: LABETALOL HCL 300 MG TAB PO SCH (08:10)
[2020-04-02] MEDS: PANTOprazole 40 MG TAB PO SCH (08:10)
[2020-04-02] MEDS: ATORVASTATIN 10 MG TAB PO SCH (08:10)
[2020-04-02] MEDS: CHOLECALCIFEROL 1,000 UNITS 25 MCG TAB PO SCH (08:10)
[2020-04-02] MEDS: POTASSIUM CHLORIDE CRTAB 20 MEQ TABCR PO SCH (08:10)
[2020-04-02] MEDS: CYANOCOBALAMIN 500 MCG TABLET (VITAMIN B-12) PO SCH (08:11)
[2020-04-02] MEDS: ESCITALOPRAM OXALATE 10 MG TAB PO SCH (08:11)
[2020-04-02] MEDS: NYSTATIN POWDER 15GM BTL EXT SCH (08:12)
[2020-04-02] MEDS: FLUTICASONE/VILANTEROL 200/25MCG 14 PUFFS/INHALER INH SCH (08:12)
[2020-04-02] MEDS: INSULIN ASPART 100 UNITS/ML 3 ML PEN SC SCH ×2 (08:12→11:47)
[2020-04-02] MEDS: DICLOFENAC SOD 1% GEL 100 GM TUBE EXT SCH (08:13)
[2020-04-02 08:58] LABS: Hematocrit (blood only) 35.4 % (37-47); Mean Corpuscular Hemoglobin 27.4 pg (25-34); Mean Corpuscular Hgb Conc 31.1 g/dL (32-36); Mean Corpuscular Volume 88.3 fL (80-100); Mean Platelet Volume 10.4 fL (7.4-10.4); Platelet Count 337 K/uL (130-400); RDW Coefficient of Variation 17.6 % (11.5-14.5); RDW Standard Deviation 56.6 fL (36.4-46.3); Red Blood Count 4.01 M/uL (4.2-5.4); White Blood Count 8.97 K/uL (4.8-10.8)
[2020-04-02] MEDS: BUMETANIDE 3 MG in SYRINGE 0 ML IV SCH (09:08)
[2020-04-02] MEDS: INSULIN GLARGINE SOLOSTAR 100 UNITS/ML 3 ML PEN SQ SCH (09:32)
[2020-04-02 09:33] LABS: BUN Creatinine Ratio 27.1 (10-20); Calcium 9.3 mg/dl (8.5-10.1); Est GFR (African American) 32.5; Potassium 3.4 mmol/L (3.5-5.1)
--- NOTE | 2020-04-04 08:06 | Discharge Summary ---
Date of Service April 02, 2020 Admission HPI Per Admitting Provider 74-year-old female with a history of CHF and COPD presenting with difficulty breathing since yesterday. The patient states that her symptoms are constant. They are slightly better after receiving a DuoNeb in the ambulance. Per EMS she did have an associated fever today. She does state that she did not take her Lasix this morning and did not use her CPAP last night. Patient does not think her legs are significantly worse but cannot rule it out. She also does think that her urine is changed recently being a different color without urgency incontinence or foul smell. She was recently placed on Bactrim for an infection to her right leg. She did start that 06/24/2019. she denies any chest discomfort or pain, cough or cold symptoms, in the ER she is at negative testing to COVID-19, abdominal pain, vom iting or diarrhea. She does not normally use oxygen except when using her CPAP at night for sleep apnea. She denies any loss of taste or smell. Upon our evaluation her legs are chronically changed with open areas and could be a possible portal of infection. Her urine is mildly abnormal which could also be a source of infection. She appears to be in moderate respiratory distress with an attempt to have more mobilization of fluid with intravenous diuretics. And treat her broadly with daptomycin and Zosyn for diabetic leg infection pending her urine culture. Admission Exam Per Admitting Provider The patient is in moderate distress, respiratory, she is very uncomfortable she is auditory breath sounds which are coarse he is tachypneic Vital signs as documented. Head exam is normocephalic atraumatic no scleral icterus Neck is short in stature with difficulty with to assess for JVD, thyromegaly, or carotid bruits. Lungs are coarse with poor air movement throughout Cardiac exam, Rhythm is regular distant Abdominal exam reveals normal bowel sounds, soft non tender, no masses Extremities are significantly edematous and both extremities are erythematous circumferentially with open areas pedal pulses are present Neurologic exam is alert and oriented, no focal loss of strength or sensation Skin is with dry go to the left subpannus fold and open areas to her lower legs with venous stasis dermatitis seen Psychologically is without concerns for depression. Principal Diagnosis Acute on chronic respiratory failure with hypoxia Discharge Exam GENERAL : No acute distress EYES: No icterus, gaze conjugate NOSE: No evidence of epistaxis MOUTH: No lesions or candidiasis NECK: Supple LUNGS: Bibasilar rales are significantly improved. No bronchospasm or rhonchi appreciated. Note paradoxical chest wall movement HEART: Regular, rate controlled ABDOMEN: Soft, NT, ND, BS Present EXTREMITIES: Bilateral LE edema seems improved as compared to yesterday. Pedal pulses intact and equal bilaterally. Chronic venous stasis NEURO: A&OX3 Discharge Data Allergies Allergy/AdvReac Type Severity Reaction Status Date / Time ibuprofen Allergy Intermediate HIVES Verified 03/25/20 12:54 lisinopril AdvReac Mild COUGH Verified 03/25/20 12:54 zolpidem AdvReac Mild drowsinesss Verified 03/25/20 12:54 pramipexole AdvReac Unknown Unknown Verified 03/25/20 12:54 Consultations 03/25/20 13:20 ED Decision to Admit Stat 03/25/20 16:11 Consult Case Management - Discharge Planning Routine Hospital Course (1) Chronic kidney disease, stage III (moderate): Creatinine bumped during this hospital stay On the day of discharge creatinine was back to baseline at 1.77 Decreased Bumex back to 3 mg twice daily Potassium 3.4 on the day of discharge (2) COPD (chronic obstructive pulmonary disease): Patient with morbid obesity with a BMI of 47.7 kg/m She reports using CPAP with compliance at home Continue inpatient CPAP which she seems to be tolerating well Continue Brio Ellipta Prednisone discontinued as patient has no bronchospasm Continue to titrate supplemental O2 for an SaO2 of 88 to 92% Stressed the importance of ambulation with the patient and not to lay in bed Suggested that she food stand manager place in front of her chair with her walker and march in place several times per day (3) History of deep venous thrombosis or pulmonary embolus: Patient anticoagulated on warfarin INR was therapeutic throughout the hospital stay Continue warfarin (Coumadin) on discharge (4) Obstructive sleep apnea syndrome: Continue with CPAP as tolerated Encourage use at bedtime and as needed on discharge Discussed the importance of this with the patient and her daughter (5) Venous stasis ulcers of both lower extremities: With new open sores Wound care nurses consulted and following Continue with diuresis and follow Continue dressing and dressing changes per wound care (6) 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, with long- term current use of insulin: Continue Humalog and Lantus at home Hemoglobin A1c is 7.8 Continue diabetic diet (7) Anemia of chronic disease: No active bleeding Hemoglobin is stable Continue ferrous sulfate (8) Diabetic nephropathy: Patient reports no acute pain She is not on gabapentin (Neurontin) at home Continue supportive care (9) Wound of lower extremity: Left lower extremity cellulitis with drainage Wound care nurse was consulted and managing Culture grew out Serratia marcescens which is pansensitive Patient a full course of Zosyn (10) Abdominal bloating: KUB with gas distended bowel suggestive of early ileus No nausea or vomiting No abdominal pain with palpation Abdomen does seem tympanic on exam and distended Hold all Colace and Senokot due to diarrhea Continue simethicone Ambulate in the room and in the halls as tolerated Also discussed the need for ambulation with the patient on discharge home Total Time Total Time Spent Total Time Spent (In Minutes): 40 minutes including discussion with patient's daughter Total Time Includes: Examination of the Patient, Discharge Planning, Medication Reconciliation and Communication With Other Providers Discharge Plan Discharge Items Patient Disposition: Home - Home Health Services Reason For Visit: ACUTE ON CHRONIC RESPIRATORY FAILURE WITH HYPOXIA Discharge Diagnosis: CHF exacerbation Activity: Resume your previous activity Activity Comment: Increase activity at home as tolerated Lifting: Gradually increase as tolerated Bathing: No limitations Sexual Activity: When tolerated Exercise/Sports: Gradually increase as tolerated Weightbearing: Full weightbearing Non-emergency contact: Primary Care Provider Call non-emergency contact if: you have any medication questions and your symptoms worsen Follow-up/Referrals: Jorge Barney MD [Primary Care Provider] - 04/06/20 11:20 am Leslie Ortega PA-C [Physician Scrubbing Machine Operator] - 04/06/20 1:00 pm (THIS IS A VIRTUAL VISIT.) Diet: Carb Consistent or DM2 and Heart Healthy Addtl Attending Provider Instructions: You were admitted with congestive heart failure exacerbation. Your normal dose of Bumex at home was 4 mg in the morning and 2 mg at night. Your changed to 3 mg in the morning and 3 mg at night. You should follow-up with Leslie Ortega PA-C in the heart failure clinic on April 06 as scheduled. You were also encouraged to increase her activity. As we talked about in the hospital, you should food stand manager front of your chair with your walker and step in place if you are unable to walk long distances without getting short of breath. Your current weight is 311 pounds. Your goal should be to lose 1 pound at a time and get below 300 pounds. I think you can achieve this by walking in place and gently increasing her activity. You should continue on a low-fat diet that is heart healthy and consistent with your diabetes. Follow-up with Dr. Guillermo as scheduled. Pending Studies at Discharge: No Stand-Alone Forms: My [facility] Medications and DC Order Prescriptions: New bumetanide 1 mg tablet 1 mg PO BID Qty: 60 RF: 0 bumetanide 2 mg tablet 2 mg PO BID Qty: 60 RF: 0 Continued ferrous sulfate 325 mg (65 mg iron) tablet 325 mg PO DAILY RF: 0 warfarin 5 mg tablet 2.5 mg PO [id number] RF: 0 acetaminophen 500 mg capsule 500 mg PO Q6H PRN (Reason: Fever Or Pain) RF: 0 cyanocobalamin (vitamin B-12) [Vitamin B-12] 1,000 mcg Tablet 1,000 mcg PO QAM Qty: 0 RF: 0 aspirin [Aspirin Low Dose] 81 mg Tablet,Delayed Release (Dr/Ec) 81 mg PO HS Qty: 0 RF: 0 cholecalciferol (vitamin D3) [Vitamin D3] 1,000 unit Tablet 3,000 unit PO QAM Qty: 0 RF: 0 levothyroxine 75 mcg tablet 75 mcg PO QAM Qty: 90 RF: 3 (DME) blood-glucose meter Kit See Rx Instructions .ROUTE .MEDSUPPLY Qty: 1 RF: 0 allopurinol 100 mg tablet 100 mg PO DAILY Qty: 30 RF: 5 blood sugar diagnostic [OneTouch Ultra Blue Test Strip] Strip See Rx Instructions .ROUTE .COMPLEX Qty: 300 RF: 4 cyclobenzaprine 5 mg tablet 5 mg PO HS PRN (Reason: muscle spasm) Qty: 30 RF: 0 metolazone 2.5 mg tablet 2.5 mg PO DAILY PRN (Reason: weight > 325 lb) Qty: 15 RF: 0 Novolog Flexpen U-100 Insulin 100 unit/mL (3 mL) insulin pen See Rx Instructions SQ .COMPLEX Qty: 30 RF: 5 potassium chloride [Klor-Con M20] 20 mEq tablet,ER particles/crystals 20 meq PO BID Qty: 180 RF: 3 simvastatin 20 mg tablet 20 mg PO PM Qty: 90 RF: 1 buspirone 5 mg tablet 5 mg PO BID PRN (Reason: anxiety) Qty: 60 RF: 5 Hold Instructions: not helping nystatin 100,000 unit/gram powder 1 applic topical TID Qty: 30 RF: 1 diclofenac sodium [Voltaren] 1 % gel 2 g TOP QID Qty: 100 RF: 3 levothyroxine 200 mcg tablet 200 mcg PO QAM Qty: 90 RF: 3 albuterol sulfate [Ventolin HFA] 90 mcg/actuation HFA aerosol inhaler 2 puff INHALATION Q4H PRN (Reason: Shortness Of Breath) Qty: 18 RF: 2 ropinirole 1 mg tablet 1 mg PO HS Qty: 90 RF: 3 escitalopram oxalate 10 mg tablet 10 mg PO DAILY Qty: 90 RF: 3 hydroxyzine HCl 25 mg tablet 25 mg PO HS PRN (Reason: Sleep ) Qty: 30 RF: 1 levalbuterol HCl [Xopenex] 0.63 mg/3 mL solution for nebulization 0.63 mg INH Q6H PRN (Reason: shortness of breath or wheezing) Qty: 36 RF: 3 Breo Ellipta 200-25 mcg/dose blister with device 1 puffs INH DAILY Qty: 60 RF: 3 Basaglar KwikPen U-100 Insulin 100 unit/mL (3 mL) insulin pen 40 unit subcut QPM RF: 0 melatonin 3 mg tablet 9 mg PO HS PRN (Reason: Sleep) RF: 0 pantoprazole 40 mg tablet,delayed release (DR/EC) 40 mg PO DAILY RF: 0 Discontinued sulfamethoxazole-trimethoprim [Bactrim] 400-80 mg tablet 1 tab PO BID 14 Days Qty: 28 RF: 0 bumetanide 2 mg tablet 2 mg PO QPM RF: 0 bumetanide 2 mg tablet 4 mg PO QAM RF: 0 No Action methylprednisolone [Medrol (Tez)] 4 mg tablets,dose pack See Rx Instructions .Route .COMPLEX 6 Days Qty: 21 RF: 0 labetalol 200 mg tablet 600 mg PO BID Qty: 720 RF: 3 Discharge Orders: Discharge Order (Routine); Ordered 04/02/20 Ordered By: Jayce Quezada/Other Patient Handouts: Managing Type 2 Diabetes Admission Data Admit Date/Time: 03/25/20 15:12 Attending Provider: Oscar Monterroso Admit Provider: Dion Smith Primary Care Provider: Jorge Barney V. Other Providers: [place] ; Dank Rodríguez Other Interventions: Discharge Summary Assessment (RN) Last Done: 04/02/20 12:13 Supervising Physician Co-Signing Physician Notes Patient is seen and examined at bedside. During face to face encounter, obtained a history of today's symptoms and physical examination. I reviewed above note and agree with it. I discussed discharge plan with patient and APC [place]. In regards to CHF, Will recommend to continue diuretics to keep patient euvolemic. willneed to monitor weight at home. Coding Level of Care Code D/C Day Management >30 mins Diagnoses Chronic kidney disease, stage III (moderate) N18.3 COPD (chronic obstructive pulmonary disease) J44.9 History of deep venous thrombosis or pulmonary embolus Obstructive sleep apnea syndrome G47.33 Venous stasis ulcers of both lower extremities I83.019; I83.029; L97.919; L97.929 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, with long-term current use of insulin E11.29; E11.65; Z79.4 Anemia of chronic disease D63.8 Diabetic nephropathy E11.21 Diabetes mellitus type: type 2 Wound of lower extremity S81.809A Abdominal bloating R14.0 Time Spent (min) 40
== END 2020-04-02 12:48 | disposition home health service (06) | DRG 189 ==
LOC: ED 12:12 → SUATTDRO 15:12 → 2S 15:12